=== PATIENT | male | born 1940 | race Caucasian/White ===

== ENCOUNTER 2016-05-02 18:12 | Emergency (ER) | payer OTHER, BC ==
[~2016-05-02] VITALS: Ht 177.8 cm; Wt 82.3 kg
[~2016-05-02 18:12] MED LIST: ACET-1311 PO; ALBU1AER9 INH; ALFU10TA30 PO; ASPCH81X PO; CALC-393 PO; CMD5 PO; FLUT0.15 NAE; HYDR0.1C8 TOP; LISI40TA PO; LORA1TAB13 PO; METO50TA7 PO; MULT-267 PO; OXYB5TAB74 PO; POLY335025 PO; PRAV20TA PO; RANI300T2 PO; SALI0.6517 NAE; SALM50AE2 INH; TRIA0.1C20 TD; WARF5TAB90 PO
[2016-05-02 18:20] VITALS: TEMP 36.8; Ht 177.8 cm; Wt 82.3 kg
--- NOTE | 2016-05-02 18:49 | DIAGNOSTIC IMAGING REPORT ---
CHEST ONE VIEW PORTABLE CLINICAL HISTORY: Altered mental status. Weakness. COMPARISON STUDY: 05/16/2015 FINDINGS: The heart is enlarged. There is underlying pulmonary emphysema. There is mild central pulmonary vascular congestion. There is no focal pulmonary consolidation. There are no significant pleural effusions.[ There are postsurgical changes of a midline sternotomy. IMPRESSION: Cardiomegaly and mild central pulmonary vascular congestion. No evidence of focal pulmonary consolidation Electronically signed by: Brijesh Zamora M.D. 05/02/2016 6:48 PM Dictated Date/Time: 05/02/2016 6:47 PM
[2016-05-02 18:56] LABS: BASO % 0.3 %; BASO ABS # 0.02 K/uL (0-0.2); COMPLETE YES; EOS % 2.5 %; HEMATOCRIT 40.6 % (42-52); IG% 0.2 %; LYMPH % 17.6 %; LYMPH ABS # 1.14 K/uL (1.2-3.4); MEAN CELL VOLUME 89.4 fL (80-100); MEAN CORPUSCULAR HEMOGLOBIN 31.3 pg (25-34); MEAN PLATELET VOLUME 10.4 fL (7.4-10.4); MONO % 16.6 %; NEUT % 62.8 %; PLATELET COUNT 133 K/uL (130-400); RED BLOOD COUNT 4.54 M/uL (4.7-6.1); WHITE BLOOD COUNT 6.46 K/uL (4.8-10.8)
[2016-05-02 19:07] LABS: INR 2.6 (0.9-1.1); PARTIAL THROMBOPLASTIN RATIO 1.4; PROTHROMBIN TIME (PATIENT) 29.4 SECONDS (9.0-12.0)
[2016-05-02 19:13] LABS: ALT/SGPT 45 U/L (12-78); AST/SGOT 30 U/L (15-37); BLOOD UREA NITROGEN 18 mg/dl (7-18); BUN/CREATININE RATIO 14.7 (10-20); CALCIUM 8.3 mg/dl (8.5-10.1); CARBON DIOXIDE 26 mmol/L (21-32); CHLORIDE 102 mmol/L (98-107); GLUCOSE 110 mg/dl (70-99); POTASSIUM 4.3 mmol/L (3.5-5.1); SODIUM 137 mmol/L (136-145)
[2016-05-02 19:22] LABS: ALKALINE PHOSPHATASE 102 U/L (45-117); CKMB/CK RATIO 2.4 (0-3.0)
[2016-05-02] MEDS ORDERED: SRVDIN60 INH (19:35)
[2016-05-02] MEDS ORDERED: POTA10TA79 PO (19:35)
[2016-05-02] MEDS ORDERED: SENN-61 PO (19:35)
[2016-05-02] MEDS ORDERED: FRS/40 PO (19:35)
[2016-05-02] MEDS ORDERED: DOCU100C31 PO (19:35)
[2016-05-02] MEDS ORDERED: ATV5X PO (19:35)
[2016-05-02] MEDS ORDERED: NRN800 PO (19:35)
[2016-05-02] MEDS ORDERED: CRD200 PO (19:35)
[2016-05-02] MEDS ORDERED: VNTHFA/IN INH (19:35)
[2016-05-02] MEDS ORDERED: ATOR-22 PO (19:35)
[2016-05-02] MEDS ORDERED: MRLP527 PO (19:35)
[2016-05-02] MEDS ORDERED: TPRSR/100 PO (19:35)
[2016-05-02] MEDS ORDERED: URX/10 PO (19:35)
[2016-05-02] MEDS ORDERED: CALC-574 PO (19:35)
[2016-05-02] MEDS ORDERED: MULT-513 PO (19:38)
[2016-05-02 20:02] LABS: URINE APPEARANCE CLEAR (CLEAR); URINE BILIRUBIN NEG (NEG); URINE COLOR YELLOW; URINE EPITHELIAL CELL AUTO 0-5 /lpf (0-5); URINE NITRITE NEG (NEG); URINE PH 5.5 (4.5-7.5); URINE SPECIFIC GRAVITY 1.019 (1.000-1.030); UROBILINOGEN NEG (NEG); ZZUR CULT IF INDIC CLEAN CATCH NO
[2016-05-02] MEDS ORDERED: MAGN400T6 PO (20:04)
[2016-05-02 20:05] LABS: MANUAL MICROSCOPIC REQUIRED? NO; REVIEW REQ? NO
[2016-05-02] MEDS ORDERED: [UNRECOGNIZED DRUG - OTHER] TOP (20:13)
[2016-05-02] MEDS ORDERED: OXYC1TAB3 PO (20:13)
[2016-05-02] MEDS ORDERED: SALI1SPR15 NAE (20:13)
[2016-05-02] MEDS ORDERED: LIDO TOP (20:13)
[2016-05-02] MEDS ORDERED: MAG TOP (20:13)
--- NOTE | 2016-05-02 20:35 | EMERGENCY ROOM VISIT NOTE ---
History Report prepared by Magdiel: Luann Gu Under the Supervision of: Dr. Bony Boo D.O. First contact with patient: 18:21 Chief Complaint: CHEST PAIN Stated Complaint: HTN, L SIDE CHEST PAIN UPON PALPATION History of Present Illness The patient is a 75 year old male who presents to the Emergency Room with complaints of constant left sided chest pain beginning a few hours prior to arrival. He states that the pain radiates around to his back. He notes that movement does worsen the pain. The patient states that he was at [employer] when he began to feel flush. He took his blood pressure and it was around 200/ 70. The patient then relaxed for a few minutes and took his blood pressure again and got very similar results. He states that he normally does not have high blood pressure and when he was seen at [facility] last Sunday he once again experienced high blood pressure. The patient notes that the past few months he has been experiencing kidney troubles and urinary frequency. The patient in November had heart surgery. He notes that he is currently on blood pressure medication and Coumadin. He did take a Lisinopril and Advil before arriving to the ED. He denies recent trauma or symptoms like this before. 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 Review of Systems See HPI for pertinent positives & negatives. A total of 10 systems reviewed and were otherwise negative. Past Medical & Surgical Medical Problems: (1) Atrial fibrillation (2) Basal cell carcinoma of neck (3) Basal cell carcinoma of nose (4) Benign hypertension (5) Chronic obstructive lung disease (6) Dizziness (7) Elevated troponin (8) Food Impaction (9) Gastroesophageal reflux disease (10) Hypertension (11) SOB (shortness of breath) Family History FHx: hypertension Social History Smoking Status: Former Smoker Alcohol Use: occasionally Drug Use: none Marital Status: single, Housing Status: lives alone Occupation Status: retired Current/Historical Medications Scheduled Alfuzosin HCl (Alfuzosin HCl ER), 10 MG PO HS Amiodarone HCl (Amiodarone HCl), 200 MG PO DAILY Ascorbic Acid (Vitamin C), 500 MG PO QAM Aspirin (Aspirin Chewable), 81 MG PO QAM Atorvastatin (Lipitor), 20 MG PO HS Calcium Carbonate-Cholecalcife (Calcium 600+D3 600-400 mg-Unit), 1 TAB PO BID Docusate Sodium (Docusate Sodium), 1 CAP PO DAILY Hydrocortisone Butyrate 0.1% (Locoid Cream 0.1%), 1 % TOP DIRECTED Magnesium Oxide (Mag-Ox), 400 MG PO BID Metoprolol Succinate (Metoprolol Succinate ER), 100 MG PO DAILY Multivitamins/Minerals (Mvi With Minerals), 1 TAB PO DAILY Oxybutynin Chloride (Ditropan), 5 MG PO HS Oxycodone Immediate Rel Tab (Roxicodone Ir), 1 TAB PO PRN UD Polyethylene Glycol 3350 (Miralax), 1 DOSE PO DAILY Potassium Chloride Microencaps (Potassium Chloride Cr), 10 MEQ PO DAILY Ranitidine (Zantac), 150 MG PO TIDM Senna (Senokot), 1 TAB PO DAILY Warfarin Sod (Coumadin), 7.5 MG PO QWED Warfarin Sodium (Coumadin), 5 MG PO 6XWK Scheduled PRN Acetaminophen (Tylenol), 650 MG PO Q6 PRN for Pain Albuterol Hfa (Ventolin Hfa), 2 PUFFS INH Q6 PRN for SOB/Wheezing Fluticasone Propionate (Nasal) (Flonase Allergy Relief), 1-2 SPRAY PILI BID PRN for CONGESTION Furosemide (Lasix), 40 MG PO DAILY PRN for SWELLING Lorazepam (Lorazepam), 0.5 MG PO TID PRN for Anxiety Saline (Saline Nasal Peridot Infant), 1-2 SPRY PILI Q2H PRN for Nasal Congestion [Mag10/Gab6/Lido5%], 1 APPLN TOP QID PRN for AFFECTED AREA Allergies Coded Allergies: Amlodipine (Verified Allergy, Unknown, EDEMA, 06/22/15) Guaifenesin (Verified Allergy, Unknown, GETS REALLY SICK FROM MUCINEX, ) Physical Exam Vital Signs Date Time Temp Pulse Resp B/P Pulse Ox O2 Delivery O2 Flow Rate FiO2 05/02/16 20:07 95 Room Air 05/02/16 19:46 49 20 173/62 96 Room Air 05/02/16 18:32 49 05/02/16 18:20 36.8 49 16 181/58 95 Room Air Physical Exam CONSTITUTIONAL/VITAL SIGNS: Reviewed / noted above. GENERAL: Non-toxic in appearance. INTEGUMENTARY: Warm, dry, and [place]. HEAD: Normocephalic. EYES: without scleral icterus or trauma. ENT/OROPHARYNX: clear and moist. LYMPHADENOPATHY/NECK: Is supple without lymphadenopathy or meningismus. RESPIRATORY: Lungs clear and equal. CARDIOVASCULAR: Regular rate and rhythm. CHEST: there is a contusion to the left lateral pectoral region with tenderness. GI/ABDOMEN: Soft and nontender. No organomegaly or pulsatile mass. No rebound or guarding. Normal bowel sounds. EXTREMITIES: Warm and well perfused. BACK: No CVA tenderness. NEUROLOGICAL: Intact without focal deficits. PSYCHIATRIC: normal affect. MUSCULOSKELETAL: Normally developed with good muscle tone. Medical Decision & Procedures ER Provider Diagnostic Interpretation: X ray results and stated below per my interpretation and radiology interpretation. CHEST ONE VIEW PORTABLE CLINICAL HISTORY: Altered mental status. Weakness. COMPARISON STUDY: 05/16/2015 FINDINGS: The heart is enlarged. There is underlying pulmonary emphysema. There is mild central pulmonary vascular congestion. There is no focal pulmonary consolidation. There are no significant pleural effusions.[ There are postsurgical changes of a midline sternotomy. IMPRESSION: Cardiomegaly and mild central pulmonary vascular congestion. No evidence of focal pulmonary consolidation Electronically signed by: Brijesh Zamora M.D. 05/02/2016 6:48 PM Dictated Date/Time: 05/02/2016 6:47 PM Laboratory Results 05/02/16 18:45 Red Blood Count 4.54, Mean Corpuscular Volume 89.4, Mean Corpuscular Hemoglobin 31.3, Mean Corpuscular Hemoglobin Concent 35.0, Mean Platelet Volume 10.4, Neutrophils (%) (Auto) 62.8, Lymphocytes (%) (Auto) 17.6, Monocytes (%) (Auto) 16.6, Eosinophils (%) (Auto) 2.5, Basophils (%) (Auto) 0.3, Neutrophils # (Auto ) 4.06, Lymphocytes # (Auto) 1.14, Monocytes # (Auto) 1.07, Eosinophils # (Auto ) 0.16, Basophils # (Auto) 0.02 05/02/16 18:45 Test 05/02/16 18:45 05/02/16 19:20 White Blood Count 6.46 K/uL (4.8-10.8) Red Blood Count 4.54 M/uL (4.7-6.1) Hemoglobin 14.2 g/dL (14.0-18.0) Hematocrit 40.6 % (42-52) Mean Corpuscular Volume 89.4 fL (80-100) Mean Corpuscular Hemoglobin 31.3 pg (25-34) Mean Corpuscular Hemoglobin Concent 35.0 g/dl (32-36) Platelet Count 133 K/uL (130-400) Mean Platelet Volume 10.4 fL (7.4-10.4) Neutrophils (%) (Auto) 62.8 % Lymphocytes (%) (Auto) 17.6 % Monocytes (%) (Auto) 16.6 % Eosinophils (%) (Auto) 2.5 % Basophils (%) (Auto) 0.3 % Neutrophils # (Auto) 4.06 K/uL (1.4-6.5) Lymphocytes # (Auto) 1.14 K/uL (1.2-3.4) Monocytes # (Auto) 1.07 K/uL (0.11-0.59) Eosinophils # (Auto) 0.16 K/uL (0-0.5) Basophils # (Auto) 0.02 K/uL (0-0.2) RDW Standard Deviation 46.1 fL (36.4-46.3) RDW Coefficient of Variation 14.0 % (11.5-14.5) Immature Granulocyte % (Auto) 0.2 % Immature Granulocyte # (Auto) 0.01 K/uL (0.00-0.02) Prothrombin Time 29.4 SECONDS (9.0-12.0) Prothromb Time International Ratio 2.6 (0.9-1.1) Activated Partial Thromboplast Time 36.8 SECONDS (21.0-31.0) Partial Thromboplastin Ratio 1.4 Anion Gap 9.0 mmol/L (3-11) Est Creatinine Clear Calc Drug Dose 54.9 ml/min Estimated GFR () 68.1 Estimated GFR (Non- 58.8 BUN/Creatinine Ratio 14.7 (10-20) Calcium Level 8.3 mg/dl (8.5-10.1) Magnesium Level 2.0 mg/dl (1.8-2.4) Total Bilirubin 0.8 mg/dl (0.2-1) Direct Bilirubin 0.3 mg/dl (0-0.2) Aspartate Amino Transf (AST/SGOT) 30 U/L (15-37) Alanine Aminotransferase (ALT/SGPT) 45 U/L (12-78) Alkaline Phosphatase 102 U/L (45-117) Total Creatine Kinase 106 U/L (39-308) Creatine Kinase MB 2.5 ng/ml (0.5-3.6) Creatine Kinase MB Ratio 2.4 (0-3.0) Troponin I < 0.015 ng/ml (0-0.045) Total Protein 7.0 gm/dl (6.4-8.2) Albumin 3.6 gm/dl (3.4-5.0) Lipase 191 U/L (73-393) Thyroid Stimulating Hormone (TSH) 1.990 uIu/ml (0.300-4.500) Urine Color YELLOW Urine Appearance CLEAR (CLEAR) Urine pH 5.5 (4.5-7.5) Urine Specific [place] 1.019 (1.000-1.030) Urine Protein NEG (NEG) Urine Glucose (UA) NEG (NEG) Urine Ketones NEG (NEG) Urine Occult Blood NEG (NEG) Urine Nitrite NEG (NEG) Urine Bilirubin NEG (NEG) Urine Urobilinogen NEG (NEG) Urine Leukocyte Esterase NEG (NEG) Urine WBC (Auto) 0 /hpf (0-5) Urine RBC (Auto) 0-4 /hpf (0-4) Urine Hyaline Casts (Auto) 0 /lpf (0-5) Urine Epithelial Cells (Auto) 0-5 /lpf (0-5) Urine Bacteria (Auto) NEG (NEG) Laboratory results as stated above per my review. ECG Indication: chest pain Rate (beats per minute): 48 Rhythm: sinus bradycardia Findings: 1st degree AV block, no acute ischemic change, no ectopy ED Course 1823: Previous medical records were reviewed. The patient was evaluated in room B2. A complete history and physical examination was performed. 2019: On reevaluation, the patient is hemodynamically stable. I discussed the results and findings with the patient. He verbalized agreement of the treatment plan. He was discharged home. Medical Decision Differential includes acute coronary syndrome, myocardial infarction, CVA, TIA, anemia, infection, pneumonia, UTI, pyelonephritis, poor nutrition, dehydration, electrolyte disturbance,hypoglycemia. This is a 75-year-old male who presents to the ED with a chief complaint of hypertension. The patient states that he was at a local grocery store and checked his blood pressure and it was elevated. He states that the reading was 202/70. He came to the ED for evaluation of this. He does report some left- sided chest pain. He did note a bruise on his left lateral chest wall. He is unsure how it got there. The patient's initial blood pressure here was 181/58. His exam was unremarkable. He denied any other symptoms such as exertional dyspnea or chest pain worsened with exertion. He denies any fevers or cough. EKG shows sinus bradycardia. The patient does report having taken an extra beta carrington pill. CBC and complete metabolic panel were normal. A troponin is negative. Chest x-ray did not show acute disease. Lipase is negative. TSH was normal. INR is 2.6. He is on Coumadin. Urine did not show infection. The patient blood pressure improved to 164/68 while he was here. He was told results the test. He is felt to be stable for discharge and outpatient follow- up. Impression Primary Impression: HTN (hypertension) Additional Impression: Contusion of left chest wall Scribe Attestation The scribe's documentation has been prepared under my direction and personally reviewed by me in its entirety. I confirm that the note above accurately reflects all work, treatment, procedures, and medical decision making performed by me. Departure Information Dispostion Home / Self-Care Referrals Olaf Roldan III, M.D. (PCP) Forms HOME CARE DOCUMENTATION FORM, IMPORTANT VISIT INFORMATION Patient Instructions My [facility] Additional Instructions Follow-up with your doctor for further care and evaluation in 1-5 days. Return to the emergency department for worsening or new symptoms or any concerns. You have been examined and treated today on an emergency basis only. This is not a substitute for, or an effort to provide, complete comprehensive medical care. It is impossible to recognize and treat all injuries or illnesses in a single emergency department visit. It is therefore important that you follow up closely with your doctor. Call as soon as possible for an appointment. Problem Qualifiers
[2016-05-02] MEDS ORDERED: ASCO-63 PO (20:54)
[2016-05-02 20:57] VITALS: BP 162/67; PULSE 49; O2SAT 93
== END 2016-05-02 20:57 | disposition home or self-care (01) ==
LOC: EDBD 18:12 → C.EDB 18:13
DX: I10 Essential (primary) hypertension (principal); S20.20XA Contusion of thorax, unspecified, initial encounter; X58.XXXA Exposure to other specified factors, initial encounter; I48.91 Unspecified atrial fibrillation; J44.9 Chronic obstructive pulmonary disease, unspecified; K21.9 Gastro-esophageal reflux disease without esophagitis; Z85.828 Personal history of other malignant neoplasm of skin; Z87.891 Personal history of nicotine dependence; Z79.01 Long term (current) use of anticoagulants; Z79.82 Long term (current) use of aspirin; Z79.899 Other long term (current) drug therapy

== ENCOUNTER 2016-05-07 14:01 | Emergency (ER) | payer OTHER, BC ==
[~2016-05-07] VITALS: Ht 185.4 cm; Wt 83.7 kg
[~2016-05-07 14:01] MED LIST changes: -ALOEMIS TOP; -ASCO500C4 PO; -CEPH500C PO; -CLOTCRE5 TOP; -LISI-461 PO; -LSN5 PO; -SALI0.6515; -TRMCR180 TOP; -[UNRECOGNIZED DRUG - CODE] TOP
[2016-05-07 14:13] VITALS: TEMP 37.1; Ht 185.4 cm; Wt 83.7 kg
[2016-05-07] MEDS ORDERED: OPTIRAY 320 IV PRN (14:45)
[2016-05-07 14:54] LABS: HEMATOCRIT 33.1 % (42-52); MEAN CELL VOLUME 88.3 fL (80-100); MEAN CORPUSCULAR HEMOGLOBIN 30.9 pg (25-34); MEAN PLATELET VOLUME 10.3 fL (7.4-10.4); PLATELET COUNT 117 K/uL (130-400); RED BLOOD COUNT 3.75 M/uL (4.7-6.1)
[2016-05-07 15:02] LABS: INR 2.8 (0.9-1.1); PROTHROMBIN TIME (PATIENT) 31.7 SECONDS (9.0-12.0)
[2016-05-07 15:12] LABS: BUN/CREATININE RATIO 18.7 (10-20); CALCIUM 8.2 mg/dl (8.5-10.1); CREATININE 1.1 mg/dl (0.60-1.40); POTASSIUM 4.2 mmol/L (3.5-5.1)
--- NOTE | 2016-05-07 15:14 | DIAGNOSTIC IMAGING REPORT ---
CHEST ONE VIEW PORTABLE CLINICAL HISTORY: large left sided hematoma pain COMPARISON STUDY: 05/02/2016 FINDINGS: Moderate stable cardiomegaly. Prior median sternotomy. Lungs are clear. Diaphragms smooth. IMPRESSION: Moderate stable cardiomegaly. Otherwise negative study Electronically signed by: Moreno Cotto M.D. 05/07/2016 3:13 PM Dictated Date/Time: 05/07/2016 3:12 PM
[2016-05-07 15:16] LABS: COMPLETE YES; EOSINOPHIL % 0.9 %; LYMPHOCYTE % 20.5 %; NEUTROPHILS % 73.2 %
[2016-05-07] MEDS ORDERED: [UNRECOGNIZED DRUG - CODE] TOP (15:33)
--- NOTE | 2016-05-07 15:57 | DIAGNOSTIC IMAGING REPORT ---
ABDOMEN AND PELVIS CT WITH IV CONTRAST CT DOSE: 403.49 mGy.cm HISTORY: Flank pain. Hematoma. large left sided hematoma w/ pain TECHNIQUE: Multiaxial CT images of the abdomen and pelvis were performed following the use of intravenous contrast. COMPARISON STUDY: 06/22/2015 FINDINGS: Mild bibasilar atelectatic change. Liver spleen and pancreas appear unremarkable. Kidneys enhance uniformly. There is atherosclerotic change and ectasia of the low thoracic as well as abdominal aorta. Bowel pattern is considered nonobstructive. There are findings of rather significant contusion along the left lateral abdominal wall including subcutaneous fat. At the lower aspect of the left chest is a 10 x 2.5 cm hematoma. The soft tissue contusion anterior to this region has a maximum geographic extent of approximate 12 x 4 x 16 cm. No acute intra-abdominal or intrapelvic abnormality. No free fluid within the paracolic gutters or soft tissue pelvic region. IMPRESSION: 1. Left flank contusion and hematoma extending from the low chest to the level of the a left iliac wing. 2. The bulk of this in terms of geographic extent is the contusion with a maximum dimension of 16 cm in terms of cephalocaudal dimension 3. The more defined hematoma occupies the lower lateral chest wall with a maximum dimension of 10 x 2.5 cm 4. No acute intra-abdominal or intrapelvic abnormality Electronically signed by: Moreno Cotto M.D. 05/07/2016 3:55 PM Dictated Date/Time: 05/07/2016 3:51 PM
[2016-05-07] MEDS ORDERED: PHYTONADIONE 5 MG TAB PO STA (16:13)
[2016-05-07 17:25] VITALS: BP 147/75; PULSE 64; O2SAT 99
--- NOTE | 2016-05-07 20:20 | EMERGENCY ROOM VISIT NOTE ---
History Report prepared by Magdiel: Frieda Driver Under the Supervision of: Viky DowneyO. First contact with patient: 14:16 Chief Complaint: ABNORMAL LABS Stated Complaint: LOW BLOOD COUNT, REFERRED BY History of Present Illness The patient is a 75 year old male who presents to the Emergency Room with complaints of constant LLQ abdominal pain beginning 6 days ago. The patient states that he was seen here 6 days ago for LLQ bruising after he might have strained himself putting his walker in the backseat of his car. He notes that he had labs that day that were okay and he notes that he was hypertensive. Since that visit, he reports that the bruising went down slightly but then came back and is now slightly worsened. The patient states that he is on Coumadin for A-fib and took it last night before he went to bed. He complains of weakness from not eating lunch, right knee pain which is chronic, and abdominal bruising. Pt denies lightheadedness, dizziness, chest pain, shortness of breath , nausea, and vomiting. The patient notes that he just got labs and his hemoglobin was 12. Source of History: patient Onset: 6 days ago Position: abdomen (LLQ) Quality: other (bruising) Timing: constant Associated Symptoms: No SOB, No chest pain, No nausea, No vomiting Note: He complains of weakness from not eating lunch, right knee pain, and abdominal bruising. Pt denies lightheadedness and dizziness. Review of Systems Pt denies headache, change in vision, fevers, chest pain, shortness of breath, nausea, vomiting, diarrhea, pain with urination, and melena. Past Medical & Surgical Medical Problems: (1) Atrial fibrillation (2) Basal cell carcinoma of neck (3) Basal cell carcinoma of nose (4) Benign hypertension (5) Chronic obstructive lung disease (6) Dizziness (7) Elevated troponin (8) Food Impaction (9) Gastroesophageal reflux disease (10) Hypertension (11) SOB (shortness of breath) Family History FHx: hypertension Social History Smoking Status: Never Smoker Alcohol Use: occasionally Drug Use: none Marital Status: single, Housing Status: lives alone Occupation Status: retired Current/Historical Medications Scheduled Alfuzosin HCl (Alfuzosin HCl ER), 10 MG PO HS Amiodarone HCl (Amiodarone HCl), 200 MG PO DAILY Ascorbic Acid (Vitamin C), 500 MG PO QAM Aspirin (Aspirin Chewable), 81 MG PO QAM Atorvastatin (Lipitor), 20 MG PO HS Calcium Carbonate-Cholecalcife (Calcium 600+D3 600-400 mg-Unit), 1 TAB PO BID Docusate Sodium (Docusate Sodium), 1 CAP PO DAILY Hydrocortisone Butyrate (Locoid), 1 APPLN TOP PRN UD Magnesium Oxide (Mag-Ox), 400 MG PO BID Metoprolol Succinate (Metoprolol Succinate ER), 100 MG PO DAILY Multivitamins/Minerals (Mvi With Minerals), 1 TAB PO DAILY Oxybutynin Chloride (Ditropan), 5 MG PO HS Oxycodone Immediate Rel Tab (Roxicodone Ir), 1 TAB PO PRN UD Polyethylene Glycol 3350 (Miralax), 1 DOSE PO DAILY Potassium Chloride Microencaps (Potassium Chloride Cr), 10 MEQ PO DAILY Ranitidine (Zantac), 150 MG PO TIDM Senna (Senokot), 1 TAB PO QPM Warfarin Sod (Coumadin), 7.5 MG PO QWED Warfarin Sodium (Coumadin), 5 MG PO 6XWK Scheduled PRN Acetaminophen (Tylenol), 650 MG PO Q6 PRN for Pain Albuterol Hfa (Ventolin Hfa), 2 PUFFS INH Q6 PRN for SOB/Wheezing Fluticasone Propionate (Nasal) (Flonase Allergy Relief), 1-2 SPRAY PILI BID PRN for CONGESTION Furosemide (Lasix), 40 MG PO DAILY PRN for SWELLING Lorazepam (Lorazepam), 0.5 MG PO TID PRN for Anxiety Saline (Saline Nasal Colora Infant), 1-2 SPRY PILI Q2H PRN for Nasal Congestion [Mag10/Gab6/Lido5%], 1 APPLN TOP QID PRN for AFFECTED AREA Allergies Coded Allergies: Amlodipine (Verified Allergy, Unknown, EDEMA, 06/22/15) Guaifenesin (Verified Allergy, Unknown, GETS REALLY SICK FROM MUCINEX, ) Physical Exam Vital Signs Date Time Temp Pulse Resp B/P Pulse Ox O2 Delivery O2 Flow Rate FiO2 05/07/16 17:25 64 16 147/75 99 05/07/16 15:51 54 16 159/46 96 3/5/17 14:13 37.1 50 18 162/52 96 Room Air Physical Exam GENERAL: sitting up in bed, disheveled, no acute distress, non-toxic EYE EXAM: normal conjunctiva OROPHARYNX: no exudate, no erythema, lips, buccal mucosa, and tongue normal and mucous membranes are moist NECK: supple, no nuchal rigidity, no adenopathy, non-tender LUNGS: Clear to auscultation. Normal chest wall mechanics HEART: no murmurs, S1 normal and S2 normal ABDOMEN: Diffuse bruising and fullness of abdomen tracking medially to umbilicus and superiorly to rib cage on the left BACK: Back is symmetrical on inspection and there is no deformity, no midline tenderness, no CVA tenderness. SKIN: no rashes and no bruising UPPER EXTREMITIES: upper extremities are grossly normal. LOWER EXTREMITIES: Bilateral pitting edema. NEURO EXAM: Normal sensorium, cranial nerves II-XII grossly intact, normal speech, no gross weakness of arms, no gross weakness of legs. Medical Decision & Procedures ER Provider Diagnostic Interpretation: Xray results per the radiologist and my interpretation. Other results have been interpreted by the radiologist and reviewed by me. CHEST ONE VIEW PORTABLE FINDINGS: Moderate stable cardiomegaly. Prior median sternotomy. Lungs are clear. Diaphragms smooth. IMPRESSION: Moderate stable cardiomegaly. Otherwise negative study Electronically signed by: Moreno Cotto M.D. 05/07/2016 3:13 PM Dictated Date/Time: 05/07/2016 3:12 PM A[address]OMEN AND PELVIS CT WITH IV CONTRAST COMPARISON STUDY: 06/22/2015 FINDINGS: Mild bibasilar atelectatic change. Liver spleen and pancreas appear unremarkable. Kidneys enhance uniformly. There is atherosclerotic change and ectasia of the low thoracic as well as abdominal aorta. Bowel pattern is considered nonobstructive. There are findings of rather significant contusion along the left lateral abdominal wall including subcutaneous fat. At the lower aspect of the left chest is a 10 x 2.5 cm hematoma. The soft tissue contusion anterior to this region has a maximum geographic extent of approximate 12 x 4 x 16 cm. No acute intra-abdominal or intrapelvic abnormality. No free fluid within the paracolic gutters or soft tissue pelvic region. IMPRESSION: 1. Left flank contusion and hematoma extending from the low chest to the level of the a left iliac wing. 2. The bulk of this in terms of geographic extent is the contusion with a maximum dimension of 16 cm in terms of cephalocaudal dimension 3. The more defined hematoma occupies the lower lateral chest wall with a maximum dimension of 10 x 2.5 cm 4. No acute intra-abdominal or intrapelvic abnormality Electronically signed by: Moreno Cotto M.D. 05/07/2016 3:55 PM Dictated Date/Time: 05/07/2016 3:51 PM Laboratory Results 05/07/16 14:41 Red Blood Count 3.75, Mean Corpuscular Volume 88.3, Mean Corpuscular Hemoglobin 30.9, Mean Corpuscular Hemoglobin Concent 35.0, Mean Platelet Volume 10.3 05/07/16 14:41 Test 05/07/16 14:41 White Blood Count 4.90 K/uL (4.8-10.8) Red Blood Count 3.75 M/uL (4.7-6.1) Hemoglobin 11.6 g/dL (14.0-18.0) Hematocrit 33.1 % (42-52) Mean Corpuscular Volume 88.3 fL (80-100) Mean Corpuscular Hemoglobin 30.9 pg (25-34) Mean Corpuscular Hemoglobin Concent 35.0 g/dl (32-36) Platelet Count 117 K/uL (130-400) Mean Platelet Volume 10.3 fL (7.4-10.4) RDW Standard Deviation 45.0 fL (36.4-46.3) RDW Coefficient of Variation 13.8 % (11.5-14.5) Neutrophils % (Manual) 73.2 % Lymphocytes % (Manual) 20.5 % Monocytes % (Manual) 5.4 % Eosinophils % (Manual) 0.9 % Neutrophils # (Manual) 3.59 K/uL (1.4-6.5) Total Absolute Neutrophils 3.59 K/uL (1.4-6.5) Lymphocytes # (Manual) 1.00 K/uL (1.2-3.4) Total Absolute Lymphocytes 1.00 K/uL (1.2-3.4) Monocytes # (Manual) 0.26 K/uL (0.11-0.59) Eosinophils # (Manual) 0.04 K/uL (0-0.5) Red Blood Cell Morphology Unremarkable Prothrombin Time 31.7 SECONDS (9.0-12.0) Prothromb Time International Ratio 2.8 (0.9-1.1) Anion Gap 10.0 mmol/L (3-11) Est Creatinine Clear Calc Drug Dose 65.6 ml/min Estimated GFR () 75.7 Estimated GFR (Non- 65.3 BUN/Creatinine Ratio 18.7 (10-20) Calcium Level 8.2 mg/dl (8.5-10.1) Total Bilirubin 1.0 mg/dl (0.2-1) Direct Bilirubin 0.3 mg/dl (0-0.2) Aspartate Amino Transf (AST/SGOT) 30 U/L (15-37) Alanine Aminotransferase (ALT/SGPT) 38 U/L (12-78) Alkaline Phosphatase 97 U/L (45-117) Total Protein 6.7 gm/dl (6.4-8.2) Albumin 3.5 gm/dl (3.4-5.0) Laboratory results per my review. Medications Administered Medications (Trade) Dose Ordered Sig/Martine Route Start Time Stop Time Status Last Admin Dose Admin Phytonadione (Mephyton Tab) 5 mg NOW STAT PO 05/07/16 16:13 05/07/16 16:14 DC 05/07/16 16:31 5 MG ED Course ED COURSE: Vital signs were reviewed and showed bradycardia and hypertensive The patients medical record was reviewed The above diagnostic studies were performed and reviewed. ED treatments and interventions as stated above. 1416: The patient was evaluated in room C7. A complete history and physical examination was performed. 1429: The patient's hemoglobin was 14 on 05/02 and is now 12. 1609: I reevaluated the patient and updated him. 1613: Mephyton Tab 5mg PO. 1625: Upon reevaluation, the patient is hemodynamically stable.I discussed my findings with the patient and he understands and agrees with the treatment plan. Based on the patients age, coexisting illnesses, exam and lab findings the decision to treat as an outpatient was made. The patient remained stable while under my care. The patient appeared well at the time of discharge. Medical Decision Differential diagnoses include major intracranial, cervical, spinal, thoracic, abdominal, pelvic and neurologic injury. Fracture, contusion, sprain, strain, laceration, abrasions included as well. Patient is a 75-year-old male who presents the ER following being referred in by primary care doctor. He takes Coumadin for A. fib and has been having bruising along the left abdominal wall. Hemoglobin from his initial evaluation several days ago drop from 14 to 12. He has no other complaints at this time. Repeat blood work in the ER shows a hemoglobin 11.6 which is within lab or from 12. BMP along with LFTs, bilirubin was unremarkable. His abdominal exam was benign. INR was therapeutic at 2.8. Patient did take his Coumadin last night. CT shows abdominal wall bruising without active extravasation and no bleeding in the abdomen. INR was reversed following discussion with the patient. He was given 5 mg of vitamin K orally. He is discharged follow-up with his primary care doctor tomorrow. Uncertain of the Nikos-Close of the bruising but I do favor he likely brushed it or hit his abdomen opening his walker in the car on Sunday. Discussed with Pt concerning signs and symptoms to watch out for. Pt was instructed to follow up with their PCP and discussed with the patient their option to return to the ED at anytime for persistent or worsening symptoms. The appropriate anticipatory guidance and out-patient management, including indications for return to the emergency department, were explained at length to the patient and understood. Impression Primary Impression: Hematoma Additional Impression: Supratherapeutic INR Scribe Attestation The scribe's documentation has been prepared under my direction and personally reviewed by me in its entirety. I confirm that the note above accurately reflects all work, treatment, procedures, and medical decision making performed by me. Departure Information Dispostion Home / Self-Care Forms HOME CARE DOCUMENTATION FORM, IMPORTANT VISIT INFORMATION, WORK / SCHOOL INSTRUCTIONS Patient Instructions ED Hematoma, My [facility] Additional Instructions Please follow up with your primary care doctor with in the next 24 hours. Any worsening of your symptoms, please return to the ED immediately. This includes feeling lightheaded, dizzy, passing out, increase in the size of the hematoma/ bruising or any other concerning signs or symptoms from your standpoint. Please do not take any Coumadin until you see or talk with your primary care doctor tomorrow. Problem Qualifiers
== END 2016-05-07 17:27 | disposition home or self-care (01) ==
LOC: C.EDB 14:03 → C.EDC 17:27
DX: S30.1XXA Contusion of abdominal wall, initial encounter (principal); X58.XXXA Exposure to other specified factors, initial encounter; R79.1 Abnormal coagulation profile; Z85.828 Personal history of other malignant neoplasm of skin; I10 Essential (primary) hypertension; J44.9 Chronic obstructive pulmonary disease, unspecified; K21.9 Gastro-esophageal reflux disease without esophagitis; Z82.49 Family history of ischemic heart disease and other diseases of the circulatory system; Z79.01 Long term (current) use of anticoagulants; Z79.82 Long term (current) use of aspirin; Z79.899 Other long term (current) drug therapy; S20.212D Contusion of left front wall of thorax, subsequent encounter; X58.XXXD Exposure to other specified factors, subsequent encounter; S36.92XA Contusion of unspecified intra-abdominal organ, initial encounter; I48.0 Paroxysmal atrial fibrillation

== ENCOUNTER → 2016-05-07 | Outpatient (CLI) | payer OTHER, BC ==
[~2016-05-07] MED LIST changes: -ALBU1AER9 INH; -ALFU10TA30 PO; +ALOEMIS TOP; +ASCO-63 PO; +ASCO500C4 PO; +ATOR-22 PO; +ATV5X PO; -CALC-393 PO; +CALC-574 PO; +CEPH500C PO; +CLOTCRE5 TOP; +CRD200 PO; +DOCU100C31 PO; +FRS/40 PO; +LIDO TOP; +LISI-461 PO; -LISI40TA PO; -LORA1TAB13 PO; +LSN5 PO; +MAG TOP; +MAGN400T6 PO; -METO50TA7 PO; -MULT-267 PO; +MULT-513 PO; +OXYC1TAB3 PO; +POTA10TA79 PO; -PRAV20TA PO; +SALI0.6515; -SALI0.6517 NAE; +SALI1SPR15 NAE; -SALM50AE2 INH; +SENN-61 PO; +TPRSR/100 PO; -TRIA0.1C20 TD; +TRMCR180 TOP; +URX/10 PO; +VNTHFA/IN INH; +[UNRECOGNIZED DRUG - CODE] TOP; +[UNRECOGNIZED DRUG - OTHER] TOP
[2016-05-07 13:19] LABS: BASO % 0.2 %; BASO ABS # 0.01 K/uL (0-0.2); COMPLETE YES; EOS % 2.5 %; HEMATOCRIT 34.8 % (42-52); IG% 0.2 %; LYMPH % 19.9 %; MEAN CELL VOLUME 88.1 fL (80-100); MEAN CORPUSCULAR HEMOGLOBIN 30.9 pg (25-34); MEAN CORPUSCULAR HGB CONC 35.1 g/dl (32-36); MEAN PLATELET VOLUME 9.8 fL (7.4-10.4); MONO % 15.4 %; NEUT % 61.8 %; PLATELET COUNT 129 K/uL (130-400); RED BLOOD COUNT 3.95 M/uL (4.7-6.1); WHITE BLOOD COUNT 5.53 K/uL (4.8-10.8)
[2016-05-07 13:26] LABS: INR 3.1 (0.9-1.1); PROTHROMBIN TIME (PATIENT) 34.8 SECONDS (9.0-12.0)
== END | disposition home or self-care (01) ==
LOC: C.LAB 12:50
PROVIDERS: ATTEND Internal Medicine
DX: S20.212D Contusion of left front wall of thorax, subsequent encounter (principal); X58.XXXD Exposure to other specified factors, subsequent encounter; S36.92XA Contusion of unspecified intra-abdominal organ, initial encounter; X58.XXXA Exposure to other specified factors, initial encounter; I48.0 Paroxysmal atrial fibrillation; Z79.01 Long term (current) use of anticoagulants

== ENCOUNTER 2016-11-01 03:15 | Emergency (ER) | payer OTHER, BC ==
[~2016-11-01] VITALS: Ht 185.4 cm; Wt 79.0 kg
[~2016-11-01 03:15] MED LIST changes: -HYDR0.1C8 TOP; +[UNRECOGNIZED DRUG - CODE] TOP
[2016-11-01 03:20] VITALS: TEMP 36.7; Ht 185.4 cm; Wt 79.0 kg
[2016-11-01] MEDS ORDERED: LORAZEPAM 0.5 MG TAB SL STA (04:04)
[2016-11-01 04:10] LABS: BASO % 0.4 %; BASO ABS # 0.02 K/uL (0-0.2); COMPLETE YES; EOS % 1.4 %; HEMATOCRIT 37.6 % (42-52); IG% 0.4 %; LYMPH ABS # 0.72 K/uL (1.2-3.4); MEAN CELL VOLUME 87.4 fL (80-100); MEAN CORPUSCULAR HEMOGLOBIN 31.9 pg (25-34); MEAN CORPUSCULAR HGB CONC 36.4 g/dl (32-36); MEAN PLATELET VOLUME 9.2 fL (7.4-10.4); MONO % 11.5 %; NEUT % 72.3 %; PLATELET COUNT 124 K/uL (130-400); WHITE BLOOD COUNT 5.15 K/uL (4.8-10.8)
[2016-11-01] MEDS ORDERED: LSN5 PO (04:15)
[2016-11-01] MEDS ORDERED: ACET-1311 PO (04:16)
[2016-11-01] MEDS ORDERED: ALOEMIS TOP (04:16)
[2016-11-01 04:21] LABS: INR 2.7 (0.9-1.1); PARTIAL THROMBOPLASTIN RATIO 1.5; PROTHROMBIN TIME (PATIENT) 29.6 SECONDS (9.0-12.0)
[2016-11-01] MEDS ORDERED: ASCO500C4 PO (04:26)
[2016-11-01] MEDS ORDERED: SALI0.6515 (04:29)
[2016-11-01] MEDS ORDERED: CLOTCRE5 TOP (04:29)
[2016-11-01] MEDS ORDERED: TRMCR180 TOP (04:30)
--- NOTE | 2016-11-01 04:36 | EMERGENCY ROOM VISIT NOTE ---
History First contact with patient: 03:23 Chief Complaint: BLEEDING Stated Complaint: BLEEDING GUMS Nursing Triage Summary: refer to triage note History of Present Illness The patient is a 76 year old male who presents to the Emergency Room with complaints of bleeding gums. The patient states that last week, he began having bleeding in his gums and spitting up blood at times. The patient states that he has rinsed with cold water with some relief. He has had bleeding intermittently since then. He saw a provider at [facility] last week and had a chest x-ray and labs done, but has not been given the results. He states that he takes Coumadin for heart problems. His INR was 2.6 one week ago. He does report a history of bleeding from the gums after a dental procedure several years ago. He denies any pain. He denies any other bleeding. Review of Systems A complete 10 point review of systems was reviewed with the patient with pertinent positives and negatives as per history of present illness. All else were negative. Past Medical/Surgical History Medical Problems: (1) Atrial fibrillation (2) Basal cell carcinoma of neck (3) Basal cell carcinoma of nose (4) Benign hypertension (5) Chronic obstructive lung disease (6) Dizziness (7) Elevated troponin (8) Food Impaction (9) Gastroesophageal reflux disease (10) Hypertension (11) SOB (shortness of breath) Family History FHx: hypertension Social History Smoking Status: Former Smoker Alcohol Use: occasionally Drug Use: none Marital Status: single, Housing Status: lives alone Occupation Status: retired Current/Historical Medications Scheduled Alfuzosin HCl (Alfuzosin HCl ER), 10 MG PO HS Aloe-Sodium Chloride ([place] Saline Nasal Gel), 1 APPLN TOP TID Amiodarone HCl (Amiodarone HCl), 200 MG PO DAILY Ascorbic Acid (Vitamin C), 500 MG PO QAM Ascorbic Acid (Vitamin C Cr), 500 MG PO DAILY Aspirin (Aspirin Chewable), 81 MG PO QAM Atorvastatin (Lipitor), 20 MG PO HS Calcium Carbonate-Cholecalcife (Calcium 600+D3 600-400 mg-Unit), 1 TAB PO DAILY Docusate Sodium (Docusate Sodium), 100 MG PO BID Lisinopril (Lisinopril), 5 MG PO DAILY Magnesium Oxide (Mag-Ox), 400 MG PO BID Metoprolol Succinate (Metoprolol Succinate ER), 100 MG PO QAM Multivitamins/Minerals (Mvi With Minerals), 1 TAB PO DAILY Oxybutynin Chloride (Ditropan), 5 MG PO HS Polyethylene Glycol 3350 (Miralax), 1 DOSE PO DAILY Potassium Chloride Microencaps (Potassium Chloride Cr), 10 MEQ PO DAILY Ranitidine (Zantac), 150 MG PO TIDM Warfarin Sod (Coumadin), 7.5 MG PO WK Warfarin Sodium (Coumadin), 5 MG PO 6XWK Scheduled PRN Acetaminophen (Tylenol), 650 MG PO Q4 PRN for Mild Pain Albuterol Hfa (Ventolin Hfa), 2 PUFFS INH Q6 PRN for SOB/Wheezing Clotrimazole (Topical) (Clotrimazole Anti-Fungal), 1 APPLN TOP DAILY PRN for UNDECIDED Fluticasone Propionate (Nasal) (Flonase Allergy Relief), 1-2 SPRAY PILI BID PRN for CONGESTION Furosemide (Lasix), 40 MG PO DAILY PRN for SWELLING Hydrocortisone Butyrate (Locoid), 1 APPLN TOP DAILY PRN for UNDECIDED Lorazepam (Lorazepam), 0.5 MG PO BID PRN for Anxiety Saline (Saline Mist), 2 SPRAYS NA UD PRN for DRYNESS Senna (Senokot), 1 TAB PO QPM PRN for Constipation Triamcinolone Acet (Aristocort 0.1%), 1 APPLN TOP DAILY PRN for UNDECIDED Physical Exam Vital Signs Date Time Temp Pulse Resp B/P (MAP) Pulse Ox O2 Delivery O2 Flow Rate FiO2 11/01/16 07:02 54 18 183/62 96 11/01/16 06:10 52 18 187/66 96 Room Air 11/01/16 05:34 48 18 178/66 98 Room Air 11/01/16 03:20 36.7 52 18 180/66 94 Room Air Physical Exam VITALS: Vitals are noted on the nurse's note and reviewed by myself. Vital signs stable. GENERAL: This is a 36-year-old male, in no acute distress, nondiaphoretic, well- developed well-nourished. SKIN: The skin was without rashes. EARS: External auditory canals clear, tympanic membranes pearly leslie without erythema or effusion bilaterally. EYES: Pupils equal round and reactive to light and accommodation. Conjunctivae without injection, sclerae without icterus. NOSE: Patent, no bleeding. MOUTH: There is a small amount of oozing blood from the left lower gums. HEART: Regular rate and rhythm without murmurs gallops or rubs. LUNGS: Clear to auscultation bilaterally without wheezes, rales or rhonchi. NEURO: Patient was alert and oriented to person place and time. Medical Decision & Procedures Laboratory Results 11/01/16 04:00 Red Blood Count 4.30, Mean Corpuscular Volume 87.4, Mean Corpuscular Hemoglobin 31.9, Mean Corpuscular Hemoglobin Concent 36.4, Mean Platelet Volume 9.2, Neutrophils (%) (Auto) 72.3, Lymphocytes (%) (Auto) 14.0, Monocytes (%) (Auto) 11.5, Eosinophils (%) (Auto) 1.4, Basophils (%) (Auto) 0.4, Neutrophils # (Auto ) 3.73, Lymphocytes # (Auto) 0.72, Monocytes # (Auto) 0.59, Eosinophils # (Auto ) 0.07, Basophils # (Auto) 0.02 Test 11/01/16 04:00 White Blood Count 5.15 K/uL (4.8-10.8) Red Blood Count 4.30 M/uL (4.7-6.1) Hemoglobin 13.7 g/dL (14.0-18.0) Hematocrit 37.6 % (42-52) Mean Corpuscular Volume 87.4 fL (80-100) Mean Corpuscular Hemoglobin 31.9 pg (25-34) Mean Corpuscular Hemoglobin Concent 36.4 g/dl (32-36) Platelet Count 124 K/uL (130-400) Mean Platelet Volume 9.2 fL (7.4-10.4) Neutrophils (%) (Auto) 72.3 % Lymphocytes (%) (Auto) 14.0 % Monocytes (%) (Auto) 11.5 % Eosinophils (%) (Auto) 1.4 % Basophils (%) (Auto) 0.4 % Neutrophils # (Auto) 3.73 K/uL (1.4-6.5) Lymphocytes # (Auto) 0.72 K/uL (1.2-3.4) Monocytes # (Auto) 0.59 K/uL (0.11-0.59) Eosinophils # (Auto) 0.07 K/uL (0-0.5) Basophils # (Auto) 0.02 K/uL (0-0.2) RDW Standard Deviation 48.2 fL (36.4-46.3) RDW Coefficient of Variation 15.0 % (11.5-14.5) Immature Granulocyte % (Auto) 0.4 % Immature Granulocyte # (Auto) 0.02 K/uL (0.00-0.02) Prothrombin Time 29.6 SECONDS (9.0-12.0) Prothromb Time International Ratio 2.7 (0.9-1.1) Activated Partial Thromboplast Time 39.0 SECONDS (21.0-31.0) Partial Thromboplastin Ratio 1.5 Medications Administered Medications (Trade) Dose Ordered Sig/Martine Route Start Time Stop Time Status Last Admin Dose Admin Lorazepam (Ativan Tab) 0.5 mg NOW STAT SL 11/01/16 04:04 11/01/16 04:05 DC 11/01/16 04:04 0.5 MG Aminocaproic Acid (Amicar 5% Mouthwash) 100 ml ONE ONCE PO 11/01/16 05:00 11/01/16 05:01 DC 11/01/16 05:52 100 ML ED Course The patient was evaluated as above. Labs were drawn. There is no active bleeding at this time. The patient was evaluated and now has oozing blood from the gums. Pressure was applied. Patient was reevaluated and had a small amount of continued bleeding. Patient was given Amicar solution to rinse with. Gauze was reapplied. Patient was reevaluated and the bleeding has slowed. He was encouraged to keep pressure on the gum at home. Discharge instructions were reviewed with the patient. The patient verbalized understanding of my assessment and treatment plan and was discharged home in good condition. Medical Decision Differential diagnosis includes thrombocytopenia, supratherapeutic INR, among others. The patient is a 76-year-old male who presents today complaining of bleeding gums. The patient had dental work done a few months ago and has some bleeding from the area. He was seen here for similar symptoms a few years ago. Platelet count was found to be stable for the patient. INR is therapeutic. Patient is not anemic. There is a small amount of oozing blood from the area. He was given Amicar mouthwash and pressure was applied. He was encouraged to follow-up closely with his dentist and PCP. He was hypertensive, which I feel is likely secondary to his anxiety regarding his symptoms. He is bradycardic, but states this is normal for him. Based on the patient's presentation and work up, I feel the patient is stable for outpatient treatment. The patient was educated to return to the emergency department for any worsening of their current condition or new/concerning symptoms. He will follow up with his dentis and PCP. Medication Reconcilliation Current Medication List: was personally reviewed by me Blood Pressure Screening Patient's blood pressure: Elevated blood pressure Blood pressure disposition: Elevated BP felt to be situational, Referred to PCP Impression Primary Impression: Bleeding gums Departure Information Dispostion Home / Self-Care Condition GOOD Referrals Olaf Roldan III, M.D. (PCP) Patient Instructions My [facility] Additional Instructions Rinse with 10 mL of the Amicar solution then replace the gauze for any persistent bleeding. Call the Coumadin clinic for directions on whether to take your Coumadin today. Call Dr. Roldan's office and your dentis to schedule follow up today or tomorrow. Return here for any worsening or new/concerning symptoms.
[2016-11-01] MEDS ORDERED: AMINOCAPROIC (AMICAR) 5% MOUTHWASH PO ONE (05:00)
[2016-11-01] MEDS ORDERED: AMINOCAPROIC ACID INJ 5,000 MG, WATER, STERILE FOR INJ 80 ML PO SCH ×2 (05:00)
[2016-11-01 07:02] VITALS: BP 183/62; PULSE 54; O2SAT 96
--- NOTE | 2016-11-01 07:29 | EMERGENCY ROOM VISIT NOTE ---
ED Visit Note First contact with patient: 03:23 I have personally seen and evaluated the patient with the PA. I agree with the diagnosis and management decisions and have been personally involved in the case. Please see Georgina Whitaker PA-C's notes for further details of the history, physical and visit.
== END 2016-11-01 07:04 | disposition home or self-care (01) ==
LOC: EDBD 03:15 → C.EDB 03:16
DX: K06.8 Other specified disorders of gingiva and edentulous alveolar ridge (principal); Z79.01 Long term (current) use of anticoagulants; I48.91 Unspecified atrial fibrillation; F41.9 Anxiety disorder, unspecified; Z85.828 Personal history of other malignant neoplasm of skin; I10 Essential (primary) hypertension; J44.9 Chronic obstructive pulmonary disease, unspecified; K21.9 Gastro-esophageal reflux disease without esophagitis; Z82.49 Family history of ischemic heart disease and other diseases of the circulatory system; Z87.891 Personal history of nicotine dependence; Z79.82 Long term (current) use of aspirin; Z79.899 Other long term (current) drug therapy

== ENCOUNTER 2016-11-16 16:36 | Emergency (ER) | payer OTHER, BC ==
[~2016-11-16] VITALS: Ht 186.7 cm; Wt 80.5 kg
[~2016-11-16 16:36] MED LIST changes: +ALOEMIS TOP; +ASCO500C4 PO; +CLOTCRE5 TOP; -LIDO TOP; +LSN5 PO; -MAG TOP; -OXYC1TAB3 PO; +SALI0.6515; -SALI1SPR15 NAE; +TRMCR180 TOP; -[UNRECOGNIZED DRUG - OTHER] TOP
[2016-11-16 16:37] VITALS: TEMP 36.8; Ht 186.7 cm; Wt 80.5 kg
--- NOTE | 2016-11-16 17:05 | EMERGENCY ROOM VISIT NOTE ---
History Report prepared by Magdiel: Pascual Santoro Under the Supervision of: Dr. Winnie Strauss D.O. First contact with patient: 16:41 Chief Complaint: NOSE BLEED (MINOR) Stated Complaint: NOSE BLEED History of Present Illness The patient is a 76 year old male who presents to the Emergency Room with complaints of epistaxis that began this afternoon. 3 hours ago, the patient fell asleep in his recliner. About an hour later, he woke up and noticed that his left nostril was bleeding. He notes that he had a coughing fit before he fell asleep. He used ice to help slow the bleeding. He is on Coumadin for atrial fibrillation. He has a recent history of nose bleeds that he received two different remedies from [email or web address] that he tried to use. He denies any other symptoms at this time. His last Coumadin level was around 2.5-2.7. Source of History: patient Onset: this afternoon Position: nose (Left nostril) Symptom Intensity: moderate Quality: other (Bleeding) Timing: constant Modifying Factors (Relieving): ice Note: He denies any abnormal symptoms at this time. Review of Systems See HPI for pertinent positives & negatives. A total of 10 systems reviewed and were otherwise negative. Past Medical & Surgical Medical Problems: (1) Atrial fibrillation (2) Basal cell carcinoma of neck (3) Basal cell carcinoma of nose (4) Benign hypertension (5) Chronic obstructive lung disease (6) Dizziness (7) Elevated troponin (8) Food Impaction (9) Gastroesophageal reflux disease (10) Hypertension (11) SOB (shortness of breath) Family History FHx: hypertension Social History Smoking Status: Former Smoker Smokeless Tobacco Use: No Alcohol Use: occasionally Drug Use: none Marital Status: single, Housing Status: lives alone Occupation Status: retired Current/Historical Medications Scheduled Alfuzosin HCl (Alfuzosin HCl ER), 10 MG PO HS Aloe-Sodium Chloride ([place] Saline Nasal Gel), 1 APPLN TOP TID Amiodarone HCl (Amiodarone HCl), 200 MG PO DAILY Ascorbic Acid (Vitamin C), 500 MG PO QAM Ascorbic Acid (Vitamin C Cr), 500 MG PO DAILY Aspirin (Aspirin Chewable), 81 MG PO QAM Atorvastatin (Lipitor), 20 MG PO HS Calcium Carbonate-Cholecalcife (Calcium 600+D3 600-400 mg-Unit), 1 TAB PO DAILY Docusate Sodium (Docusate Sodium), 100 MG PO BID Magnesium Oxide (Mag-Ox), 400 MG PO BID Metoprolol Succinate (Metoprolol Succinate ER), 100 MG PO QAM Multivitamins/Minerals (Mvi With Minerals), 1 TAB PO DAILY Oxybutynin Chloride (Ditropan), 5 MG PO HS Polyethylene Glycol 3350 (Miralax), 1 DOSE PO DAILY Potassium Chloride Microencaps (Potassium Chloride Cr), 10 MEQ PO DAILY Ranitidine (Zantac), 150 MG PO TIDM Warfarin Sod (Coumadin), 7.5 MG PO WK Warfarin Sodium (Coumadin), 5 MG PO 6XWK Scheduled PRN Acetaminophen (Tylenol), 650 MG PO Q4 PRN for Mild Pain Albuterol Hfa (Ventolin Hfa), 2 PUFFS INH Q6 PRN for SOB/Wheezing Clotrimazole (Topical) (Clotrimazole Anti-Fungal), 1 APPLN TOP DAILY PRN for UNDECIDED Fluticasone Propionate (Nasal) (Flonase Allergy Relief), 1-2 SPRAY PILI BID PRN for CONGESTION Furosemide (Lasix), 40 MG PO DAILY PRN for SWELLING Hydrocortisone Butyrate (Locoid), 1 APPLN TOP DAILY PRN for UNDECIDED Lorazepam (Lorazepam), 0.5 MG PO BID PRN for Anxiety Saline (Saline Mist), 2 SPRAYS NA UD PRN for DRYNESS Senna (Senokot), 1 TAB PO QPM PRN for Constipation Triamcinolone Acet (Aristocort 0.1%), 1 APPLN TOP DAILY PRN for UNDECIDED Miscellaneous Medications Lisinopril (Zestril), 10 MG PO Allergies Coded Allergies: Amlodipine (Verified Allergy, Unknown, EDEMA, 06/22/15) Guaifenesin (Verified Allergy, Unknown, GETS REALLY SICK FROM MUCINEX, ) Physical Exam Vital Signs Date Time Temp Pulse Resp B/P (MAP) Pulse Ox O2 Delivery O2 Flow Rate FiO2 11/16/16 17:57 57 20 155/75 95 Room Air 11/16/16 17:19 164/84 11/16/16 16:49 57 18 180/64 97 Room Air 11/16/16 16:37 36.8 58 18 191/66 93 Room Air Physical Exam GENERAL: alert, very anxious appearing, well nourished, no distress, non-toxic EYE EXAM: normal conjunctiva, PERRL and EOM's grossly intact NASAL EXAM: There is a fresh clot in the left nare along the medial aspect. No active bleeding. The right nare is unremarkable. Mild hyperemia along the medical mucosal aspect. OROPHARYNX: There is a fresh clot noted in the posterior oropharynx without any other dental or gingival bleeding. NECK: supple, no nuchal rigidity, no adenopathy, non-tender LUNGS: Clear to auscultation. Normal chest wall mechanics HEART: no murmurs, S1 normal and S2 normal ABDOMEN: abdomen soft, non-tender, normo-active bowel sounds, no masses, no rebound or guarding. BACK: Back is symmetrical on inspection and there is no deformity, no midline tenderness, no CVA tenderness. SKIN: no rashes and no bruising UPPER EXTREMITIES: upper extremities are grossly normal. LOWER EXTREMITIES: 1+ bilateral lower extremity edema. NEURO EXAM: Normal sensorium, cranial nerves II-XII grossly intact, normal speech, no gross weakness of arms, no gross weakness of legs. Medical Decision & Procedures Laboratory Results 11/16/16 17:11 Test 11/16/16 17:11 Red Blood Count 4.15 M/uL (4.7-6.1) Mean Corpuscular Volume 88.9 fL (80-100) Mean Corpuscular Hemoglobin 31.1 pg (25-34) Mean Corpuscular Hemoglobin Concent 35.0 g/dl (32-36) RDW Standard Deviation 48.6 fL (36.4-46.3) RDW Coefficient of Variation 14.9 % (11.5-14.5) Mean Platelet Volume 9.7 fL (7.4-10.4) Prothrombin Time 35.6 SECONDS (9.0-12.0) Prothromb Time International Ratio 3.2 (0.9-1.1) Laboratory results per my review. Medications Administered Medications (Trade) Dose Ordered Sig/Martine Route Start Time Stop Time Status Last Admin Dose Admin Oxymetazoline HCl (Afrin 0.05% Nasal [place]) 1 sprays NOW ONCE NA 11/16/16 17:15 9/14/17 17:16 DC 11/16/16 17:19 1 SPRAYS ED Course 1641: The patient was evaluated in room C7. A complete history and physical exam was performed. 171: Ordered Oxymetazoline HCl 1 spray NA 1830: Upon reevaluation, the patient is feeling better. I discussed the findings and the treatment plan with the patient. He verbalizes agreement and understanding. He was discharged home. Medical Decision Differential diagnosis: Etiologies such as anterior epistaxis, coagulopathy, traumatic injury, fracture , septal hematoma, posterior epistaxis as well as other pathologies were entertained. Patient well-appearing here and epistaxis controlled. No evidence of foreign body or additional trauma. Likely from patient's Coumadin use and recent nose blowing. Patient's INR mildly supratherapeutic here, he was instructed to skip tonight's dose and then to resume his usual regimen, and have his INR rechecked next week. Patient extremely anxious, however blood pressure only mildly elevated. No vomiting, no fevers. Patient with no trouble breathing. Patient reassured, discussed initial treatment of recurrent episode at home, as well as symptoms to watch and return for, he verbalized understanding and was agreeable with plan. Medication Reconcilliation Current Medication List: was personally reviewed by me Blood Pressure Screening Patient's blood pressure: Elevated blood pressure Blood pressure disposition: Elevated BP felt to be situational Impression Primary Impression: Anticoagulated on Coumadin Additional Impressions: Epistaxis Anxiety Scribe Attestation The scribe's documentation has been prepared under my direction and personally reviewed by me in its entirety. I confirm that the note above accurately reflects all work, treatment, procedures, and medical decision making performed by me. Departure Information Dispostion Home / Self-Care Referrals Olaf Roldan III, M.D. (PCP) Forms HOME CARE DOCUMENTATION FORM, IMPORTANT VISIT INFORMATION, WORK / SCHOOL INSTRUCTIONS Patient Instructions My [facility] Additional Instructions Please follow-up with your family doctor or with ENT regarding the nosebleeds. Do not blow your nose at home for at least 24 hours. You may continue using the saline nasal spray. Please skip your dose of coumadin tonight and continue tomorrow per normal. Please have your coumadin level rechecked next week. If you have any recurrent bleeding that doesn't stop with the nasal clamp and a dose of Afrin, please return to the emergency room. Problem Qualifiers
[2016-11-16] MEDS ORDERED: OXYMETAZOLINE HCL 0.05% NA SPR 15 ML BTL ONE (17:15)
[2016-11-16] MEDS ORDERED: LISI-461 PO (17:28)
[2016-11-16 17:29] LABS: HEMATOCRIT 36.9 % (42-52); MEAN CELL VOLUME 88.9 fL (80-100); MEAN CORPUSCULAR HEMOGLOBIN 31.1 pg (25-34); MEAN PLATELET VOLUME 9.7 fL (7.4-10.4); PLATELET COUNT 120 K/uL (130-400); RED BLOOD COUNT 4.15 M/uL (4.7-6.1); WHITE BLOOD COUNT 6.05 K/uL (4.8-10.8)
[2016-11-16 17:38] LABS: INR 3.2 (0.9-1.1); PROTHROMBIN TIME (PATIENT) 35.6 SECONDS (9.0-12.0)
[2016-11-16 17:57] VITALS: BP 155/75; PULSE 57; O2SAT 95
== END 2016-11-16 18:48 | disposition home or self-care (01) ==
LOC: C.EDB 16:37 → C.EDC 18:48
DX: Z79.01 Long term (current) use of anticoagulants (principal); R04.0 Epistaxis; F41.9 Anxiety disorder, unspecified; I48.91 Unspecified atrial fibrillation; I10 Essential (primary) hypertension; J44.9 Chronic obstructive pulmonary disease, unspecified; K21.9 Gastro-esophageal reflux disease without esophagitis; Z82.49 Family history of ischemic heart disease and other diseases of the circulatory system; Z87.891 Personal history of nicotine dependence; Z79.82 Long term (current) use of aspirin

== ENCOUNTER 2016-12-06 19:18 | Emergency (ER) | payer OTHER, BC ==
[~2016-12-06] VITALS: Ht 185.4 cm; Wt 80.0 kg
[~2016-12-06 19:18] MED LIST changes: +LISI-461 PO; -LSN5 PO
[2016-12-06 19:26] VITALS: TEMP 36.8; Ht 185.4 cm; Wt 80.0 kg
[2016-12-06] MEDS ORDERED: AMINOCAPROIC ACID INJ 5,000 MG, WATER, STERILE FOR INJ 80 ML PO ONE ×2 (20:00)
[2016-12-06] MEDS ORDERED: AMINOCAPROIC (AMICAR) 5% MOUTHWASH PO ONE (20:00)
[2016-12-06] MEDS ORDERED: CEPHALEXIN MONOHYDRATE 250 MG CAP PO ONE (20:15)
[2016-12-06] MEDS ORDERED: CEPHALEXIN 500MG HOME PACK 1 EA BTL PO ONE (20:15)
[2016-12-06] MEDS ORDERED: CEPH500C PO (20:36)
--- NOTE | 2016-12-06 20:39 | EMERGENCY ROOM VISIT NOTE ---
History Report prepared by Magdiel: Willis Kidd Under the Supervision of: Dr. Bony Boo D.O. First contact with patient: 19:42 Chief Complaint: BLEEDING Stated Complaint: BLEEDING Nursing Triage Summary: Patient arrives to ED via BLS transport, complains of bleeding from his gums/teeth that started earlier today. Patient states that he has trouble with this often, was here two months ago for same symptoms. Patient states that he is on coumadin. Patient also notes that he has a cyst/pimple on the back of his neck that he notes has been getting bigger and would like someone to look at it. History of Present Illness The patient is a 76 year old male who presents to the Emergency Room via BLS with complaints of persistent gum bleeding that started earlier today. The patient states that he is "spitting blood". He says that he has been here multiple times for the same issue, and he gets a solution here that makes the bleeding resolve. The patient states that the bleeding is from an area of his lower gum. The patient adds that he has a cyst on the back of his neck that he has had for around 15 years, but has been getting much bigger over the past 3 days. He says that the area on his neck is very painful. He notes that he is on Coumadin. The patient says that his last INR was checked last week and it was 2.5 or 2.6. Source of History: patient Onset: Earlier today Position: other (lower gum) Symptom Intensity: spitting blood Quality: other (bleeding) Timing: other (persistent) Note: No other associated symptoms, but adds that has painful cyst on back of neck that has been getting larger over past few days. Review of Systems See HPI for pertinent positives & negatives. A total of 10 systems reviewed and were otherwise negative. Past Medical & Surgical Medical Problems: (1) Atrial fibrillation (2) Basal cell carcinoma of neck (3) Basal cell carcinoma of nose (4) Benign hypertension (5) Chronic obstructive lung disease (6) Dizziness (7) Elevated troponin (8) Food Impaction (9) Gastroesophageal reflux disease (10) Hypertension (11) SOB (shortness of breath) Family History FHx: hypertension Social History Smoking Status: Never Smoker Alcohol Use: occasionally Drug Use: none Marital Status: single, Housing Status: lives alone Occupation Status: retired Current/Historical Medications Scheduled Alfuzosin HCl (Alfuzosin HCl ER), 10 MG PO HS Aloe-Sodium Chloride ([place] Saline Nasal Gel), 1 APPLN TOP TID Amiodarone HCl (Amiodarone HCl), 200 MG PO DAILY Ascorbic Acid (Vitamin C), 500 MG PO QAM Ascorbic Acid (Vitamin C Cr), 500 MG PO DAILY Aspirin (Aspirin Chewable), 81 MG PO QAM Atorvastatin (Lipitor), 20 MG PO HS Calcium Carbonate-Cholecalcife (Calcium 600+D3 600-400 mg-Unit), 1 TAB PO DAILY Docusate Sodium (Docusate Sodium), 100 MG PO BID Magnesium Oxide (Mag-Ox), 400 MG PO BID Metoprolol Succinate (Metoprolol Succinate ER), 100 MG PO QAM Multivitamins/Minerals (Mvi With Minerals), 1 TAB PO DAILY Oxybutynin Chloride (Ditropan), 5 MG PO HS Polyethylene Glycol 3350 (Miralax), 1 DOSE PO DAILY Potassium Chloride Microencaps (Potassium Chloride Cr), 10 MEQ PO DAILY Ranitidine (Zantac), 150 MG PO TIDM Warfarin Sod (Coumadin), 7.5 MG PO WK Warfarin Sodium (Coumadin), 5 MG PO 6XWK Scheduled PRN Acetaminophen (Tylenol), 650 MG PO Q4 PRN for Mild Pain Albuterol Hfa (Ventolin Hfa), 2 PUFFS INH Q6 PRN for SOB/Wheezing Clotrimazole (Topical) (Clotrimazole Anti-Fungal), 1 APPLN TOP DAILY PRN for UNDECIDED Fluticasone Propionate (Nasal) (Flonase Allergy Relief), 1-2 SPRAY PILI BID PRN for CONGESTION Furosemide (Lasix), 40 MG PO DAILY PRN for SWELLING Hydrocortisone Butyrate (Locoid), 1 APPLN TOP DAILY PRN for UNDECIDED Lorazepam (Lorazepam), 0.5 MG PO BID PRN for Anxiety Saline (Saline Mist), 2 SPRAYS NA UD PRN for DRYNESS Senna (Senokot), 1 TAB PO QPM PRN for Constipation Triamcinolone Acet (Aristocort 0.1%), 1 APPLN TOP DAILY PRN for UNDECIDED Miscellaneous Medications Lisinopril (Zestril), 10 MG PO Allergies Coded Allergies: Amlodipine (Verified Allergy, Unknown, EDEMA, 06/22/15) Guaifenesin (Verified Allergy, Unknown, GETS REALLY SICK FROM MUCINEX, ) Physical Exam Vital Signs Date Time Temp Pulse Resp B/P (MAP) Pulse Ox O2 Delivery O2 Flow Rate FiO2 12/06/16 19:44 50 12/06/16 19:26 36.8 50 18 165/53 96 Room Air Physical Exam CONSTITUTIONAL/VITAL SIGNS: Reviewed / noted above. GENERAL: Non-toxic in appearance. INTEGUMENTARY: Warm, dry, and [place]. HEAD: Normocephalic. EYES: without scleral icterus or trauma. ENT/OROPHARYNX: There is a minimal amount of bleeding noted from the left lower gums in the area of the left lower molars. LYMPHADENOPATHY/NECK: There is a 1 inch diameter cyst on the posterior neck that appears to be infected with purulent drainage removed from the cyst. Is supple without lymphadenopathy or meningismus. RESPIRATORY: Lungs clear and equal. CARDIOVASCULAR: Regular rate and rhythm. GI/ABDOMEN: Soft and nontender. No organomegaly or pulsatile mass. No rebound or guarding. Normal bowel sounds. EXTREMITIES: Warm and well perfused. BACK: No CVA tenderness. NEUROLOGICAL: Intact without focal deficits. PSYCHIATRIC: normal affect. MUSCULOSKELETAL: Normally developed with good muscle tone. Medical Decision & Procedures Laboratory Results Test 12/06/16 20:17 Bedside Prothrombin Time INR 3.3 (0.9-1.1) ED Course 194: Previous medical records were reviewed. The patient was evaluated in room C11B. A complete history and physical examination was performed. 2000: Ordered Aminocaproic Acid/Sterile Water 10 ml of solution PO. Medical Decision Differential diagnosis includes but is not limited to: elevated INR, trauma, infection. This is a 76-year-old male who presents to the ED with a chief complaint of bleeding gums. The patient states that he developed a bleeding gums today. He states that he has had this in the past. The patient is chronically on Coumadin. The patient's INR was last checked and was 2.5 last week. The patient also reports some swelling and discomfort in the back of his neck. He states that he has had a cyst there for a long time but it never caused him any problems. It is now uncomfortable. His exam reveals minimal bleeding from the left inferior posterior molar area mostly on the medial aspect. There is minimal bleeding. The patient also on exam has a cyst that appears to have some evidence of a cellulitis and abscess. Purulent drainage was expressed out of this abscess. The patient was given Keflex by mouth. The patient was given Amicar mouthwash for his dental bleeding. His INR today is 3.3. He was told to discontinue his Coumadin for the next 24 hours. He was told to follow-up with his PCP as needed. He was given a Keflex home pack and a prescription for Keflex for the next 5 days. Medication Reconcilliation Current Medication List: was personally reviewed by me Blood Pressure Screening Patient's blood pressure: Elevated blood pressure Blood pressure disposition: Elevated BP felt to be situational Impression Primary Impression: Bleeding gums Additional Impression: Abscess Scribe Attestation The scribe's documentation has been prepared under my direction and personally reviewed by me in its entirety. I confirm that the note above accurately reflects all work, treatment, procedures, and medical decision making performed by me. Departure Information Dispostion Home / Self-Care Prescriptions Cephalexin Monohydrate (Keflex) 500 Mg Cap 500 MG PO QID, #20 CAP Prov: Bony Boo D.O. 12/06/16 Referrals Olaf Roldan III, M.D. (PCP) Patient Instructions My [facility] Additional Instructions Do not take your Coumadin dose tonight or tomorrow. Your INR is 3.3. Keflex as prescribed 4 times a day until finished. Use Amicar mouthwash: use every couple hours swish and spit as needed for bleeding gums. Return for any concerns or worsening. Problem Qualifiers
[2016-12-06 21:00] VITALS: BP 166/66; PULSE 53; O2SAT 95
== END 2016-12-06 21:00 | disposition home or self-care (01) ==
LOC: EDBD 19:18 → C.EDC 19:21
DX: K06.8 Other specified disorders of gingiva and edentulous alveolar ridge (principal); L02.11 Cutaneous abscess of neck; Z79.01 Long term (current) use of anticoagulants; I48.91 Unspecified atrial fibrillation; I10 Essential (primary) hypertension; J44.9 Chronic obstructive pulmonary disease, unspecified; K21.9 Gastro-esophageal reflux disease without esophagitis; Z82.49 Family history of ischemic heart disease and other diseases of the circulatory system; Z79.899 Other long term (current) drug therapy

== ENCOUNTER 2016-12-21 02:26 | Emergency (ER) | payer OTHER, BC ==
[~2016-12-21] VITALS: Ht 185.4 cm; Wt 80.0 kg
[~2016-12-21 02:26] MED LIST changes: +CEPH500C PO
[2016-12-21 02:28] VITALS: TEMP 36.4; Ht 185.4 cm; Wt 80.0 kg
[2016-12-21] MEDS ORDERED: OXYCODONE HCL IR 5 MG TAB (IMMEDIATE RELEASE) PO STA (02:44)
--- NOTE | 2016-12-21 02:48 | EMERGENCY ROOM VISIT NOTE ---
History Report prepared by Magdiel: Max Cabrera Under the Supervision of: Dr. Cleveland Robledo M.D. First contact with patient: 02:35 Chief Complaint: KNEEPAIN Stated Complaint: RIGHT KNEE PAIN-PULSATING,CAN'T SLEEP History of Present Illness The patient is a 76 year old male who presents to the Emergency Room with complaints of pulsating right knee pain that started yesterday, and he states that the pain comes every 30 seconds and feels like an "electric shock". The patient states that he had knee surgery a long time ago, and he is scheduled for a knee replacement on February 05. He states that starting ten years ago he gets his knee tapped regularly to drain it, and he states that the last drain was a week ago. He states that his Coumadin level was 3.3 a week ago, and then he did not take it for a few days, and it went down to 2. He states that his goal INR is between 2-3. The patient denies any fevers or passing out. He notes that his lisinopril was just increased from 10mg to 20mg. Source of History: patient Onset: yesterday Position: knee (right) Quality: other ("elecrti shock") Timing: other (pulsating) Associated Symptoms: No LOC, No fevers Review of Systems See HPI for pertinent positives & negatives. A total of 6 systems reviewed and were otherwise negative. Past Medical & Surgical Medical Problems: (1) Atrial fibrillation (2) Basal cell carcinoma of neck (3) Basal cell carcinoma of nose (4) Benign hypertension (5) Chronic obstructive lung disease (6) Dizziness (7) Elevated troponin (8) Food Impaction (9) Gastroesophageal reflux disease (10) Hypertension (11) SOB (shortness of breath) Family History FHx: hypertension Social History Smoking Status: Former Smoker Alcohol Use: occasionally Drug Use: none Marital Status: single, Housing Status: lives alone Occupation Status: retired Current/Historical Medications Scheduled Alfuzosin HCl (Alfuzosin HCl ER), 10 MG PO HS Aloe-Sodium Chloride ([place]ield Saline Nasal Gel), 1 APPLN TOP TID Amiodarone HCl (Amiodarone HCl), 200 MG PO DAILY Ascorbic Acid (Vitamin C), 500 MG PO QAM Ascorbic Acid (Vitamin C Cr), 500 MG PO DAILY Aspirin (Aspirin Chewable), 81 MG PO QAM Atorvastatin (Lipitor), 20 MG PO HS Calcium Carbonate-Cholecalcife (Calcium 600+D3 600-400 mg-Unit), 1 TAB PO DAILY Docusate Sodium (Docusate Sodium), 100 MG PO BID Lisinopril (Zestril), 20 MG PO DAILY Magnesium Oxide (Mag-Ox), 400 MG PO BID Metoprolol Succinate (Metoprolol Succinate ER), 100 MG PO QAM Multivitamins/Minerals (Mvi With Minerals), 1 TAB PO DAILY Polyethylene Glycol 3350 (Miralax), 1 DOSE PO DAILY Potassium Chloride Microencaps (Potassium Chloride Cr), 10 MEQ PO DAILY Ranitidine (Zantac), 150 MG PO TIDM Warfarin Sod (Coumadin), 7.5 MG PO WK Warfarin Sodium (Coumadin), 5 MG PO 6XWK Scheduled PRN Acetaminophen (Tylenol), 650 MG PO Q4 PRN for Mild Pain Albuterol Hfa (Ventolin Hfa), 2 PUFFS INH Q6 PRN for SOB/Wheezing Clotrimazole (Topical) (Clotrimazole Anti-Fungal), 1 APPLN TOP DAILY PRN for UNDECIDED Fluticasone Propionate (Nasal) (Flonase Allergy Relief), 1-2 SPRAY PILI BID PRN for CONGESTION Furosemide (Lasix), 40 MG PO DAILY PRN for SWELLING Hydrocortisone Butyrate (Locoid), 1 APPLN TOP DAILY PRN for UNDECIDED Lorazepam (Lorazepam), 0.5 MG PO BID PRN for Anxiety Oxycodone Ir (Roxicodone Ir), 1 TAB PO Q4H PRN for Pain Saline (Saline Mist), 2 SPRAYS NA UD PRN for DRYNESS Senna (Senokot), 1 TAB PO QPM PRN for Constipation Triamcinolone Acet (Aristocort 0.1%), 1 APPLN TOP DAILY PRN for UNDECIDED Allergies Coded Allergies: Amlodipine (Verified Allergy, Unknown, EDEMA, 06/22/15) Guaifenesin (Verified Allergy, Unknown, GETS REALLY SICK FROM MUCINEX, ) Physical Exam Vital Signs Date Time Temp Pulse Resp B/P (MAP) Pulse Ox O2 Delivery O2 Flow Rate FiO2 12/21/16 04:33 59 22 171/59 95 12/21/16 02:28 36.4 55 19 176/60 95 Room Air Physical Exam GENERAL: Patient is well appearing and in no acute distress. HEENT: No acute trauma, normocephalic atraumatic, mucous membranes moist, no nasal congestion, no scleral icterus. NECK: No stridor, no adenopathy, no meningismus, trachea is midline. LUNGS: No dyspnea. Clear to auscultation and equal bilaterally. No wheeze, no rhonchi. HEART: Regular rate and rhythm. No murmurs, rubs, gallops appreciated. EXTREMITIES: Large right knee effusion. Mild pain with range of motion.No erythema. Minimal tenderness to palpation. Normal motion all extremities, no cyanosis. NEUROLOGIC: Alert and oriented, no acute motor or sensory deficits, no focal weakness, cranial nerves grossly intact. SKIN: No rash, no jaundice, no diaphoresis. Medical Decision & Procedures Laboratory Results 12/21/16 03:11 Red Blood Count 3.85, Mean Corpuscular Volume 91.4, Mean Corpuscular Hemoglobin 31.7, Mean Corpuscular Hemoglobin Concent 34.7, Mean Platelet Volume 9.3, Neutrophils (%) (Auto) 70.7, Lymphocytes (%) (Auto) 15.9, Monocytes (%) (Auto) 11.0, Eosinophils (%) (Auto) 1.6, Basophils (%) (Auto) 0.4, Neutrophils # (Auto ) 3.61, Lymphocytes # (Auto) 0.81, Monocytes # (Auto) 0.56, Eosinophils # (Auto ) 0.08, Basophils # (Auto) 0.02 12/21/16 03:11 Test 12/21/16 03:11 White Blood Count 5.10 K/uL (4.8-10.8) Red Blood Count 3.85 M/uL (4.7-6.1) Hemoglobin 12.2 g/dL (14.0-18.0) Hematocrit 35.2 % (42-52) Mean Corpuscular Volume 91.4 fL (80-100) Mean Corpuscular Hemoglobin 31.7 pg (25-34) Mean Corpuscular Hemoglobin Concent 34.7 g/dl (32-36) Platelet Count 143 K/uL (130-400) Mean Platelet Volume 9.3 fL (7.4-10.4) Neutrophils (%) (Auto) 70.7 % Lymphocytes (%) (Auto) 15.9 % Monocytes (%) (Auto) 11.0 % Eosinophils (%) (Auto) 1.6 % Basophils (%) (Auto) 0.4 % Neutrophils # (Auto) 3.61 K/uL (1.4-6.5) Lymphocytes # (Auto) 0.81 K/uL (1.2-3.4) Monocytes # (Auto) 0.56 K/uL (0.11-0.59) Eosinophils # (Auto) 0.08 K/uL (0-0.5) Basophils # (Auto) 0.02 K/uL (0-0.2) RDW Standard Deviation 45.9 fL (36.4-46.3) RDW Coefficient of Variation 13.8 % (11.5-14.5) Immature Granulocyte % (Auto) 0.4 % Immature Granulocyte # (Auto) 0.02 K/uL (0.00-0.02) Prothrombin Time 23.7 SECONDS (9.0-12.0) Prothromb Time International Ratio 2.1 (0.9-1.1) Anion Gap 6.0 mmol/L (3-11) Est Creatinine Clear Calc Drug Dose 72.5 ml/min Estimated GFR () 86.5 Estimated GFR (Non- 74.6 BUN/Creatinine Ratio 14.1 (10-20) Calcium Level 8.2 mg/dl (8.5-10.1) C-Reactive Protein 0.52 mg/dl (0-0.29) Laboratory results as reviewed by me. Medications Administered Medications (Trade) Dose Ordered Sig/Martine Route Start Time Stop Time Status Last Admin Dose Admin Oxycodone HCl (Roxicodone Immediate Rel Tab) 5 mg NOW STAT PO 12/21/16 02:44 12/21/16 02:46 DC 12/21/16 02:50 5 MG Oxycodone HCl (Roxicodone Immediate Rel 5MG Home Pack) 1 homepack UD ONCE PO 12/21/16 04:00 12/21/16 04:01 DC 12/21/16 04:23 1 HOMEPACK ED Course 0235: The patient was evaluated in room B2. A complete history and physical exam was performed. 0244: Oxycodone HCl 5mg PO 0355: I reevaluated the patient, and he had complete resolution of pain. He asked to go home with the oxycodone IR, and I discussed at length its risks and restrictions. I asked case management to set up an outpatient orthopedic evaluation. The patient will be discharged home. 0400: Oxycodone HCl 1 Home Pack PO Medical Decision Differential: Fracture, Dislocation, Cellulitis, Septic Joint, Ligamentous Injury, Effusion, DVT, Elevated INR, amongst other pathologies entertained. 76 yr olc male arrives wit large right knee effusion. Minimal pain with ROM and without erythema nor fevers, nor significant TTP I do not feel this is septic joint, especially given unremarkable WBC/CRP at this time. No evidence DVT by exam. He is on Coumadin and I suspect has had some hemarthrosis, likely due to recent injection. INR therapeutic. complete resolution with Oxy IR and patient awake, alert, oriented. Will send home with limited number as with hemarthrosis this may be sore for several days. Case Management in to talk to him about setting up ortho follow up for re-evaluation. Reviewed at length symptoms requiring return. Medication Reconcilliation Current Medication List: was personally reviewed by me Blood Pressure Screening Patient's blood pressure: Elevated blood pressure Blood pressure disposition: Referred to PCP Impression Primary Impression: Knee effusion, right Additional Impressions: Anticoagulation adequate with anticoagulant therapy Hypertension Scribe Attestation The scribe's documentation has been prepared under my direction and personally reviewed by me in its entirety. I confirm that the note above accurately reflects all work, treatment, procedures, and medical decision making performed by me. Departure Information Dispostion Home / Self-Care Prescriptions Oxycodone Ir (Roxicodone Ir) 5 Mg Tab 1 TAB PO Q4H Y for Pain, #12 TAB Prov: Cleveland Robledo M.D. 12/21/16 Referrals Olaf Roldan III, M.D. (PCP) Forms HOME CARE DOCUMENTATION FORM, IMPORTANT VISIT INFORMATION Patient Instructions ED Effusion Knee, My [facility] Additional Instructions You have received a narcotic pain medication prescription. These medications may cause drowsiness and should not be used with other sedative medications. Do not drive, drink alcohol, perform dangerous activities, nor make important decisions after taking these medications. terminal worker use or inappropriate use may lead to addiction. These medications can cause constipation. Use over the counter anti-constipation medications as needed. Avoid any activities where you may be at risk of falling while on this medication. Your blood pressure was elevated during this visit. This is quite common in many people who are being evaluated in the Emergency Department for many reasons. However, it is important that you have your Primary Care Provider recheck your blood pressure and discuss whether treatment will be needed. detention elevated blood pressure can lead to strokes, heart attacks, kidney failure amongst other medical issues. If you develop severe headaches, chest pain, weakness in arms or legs, or other concerning symptoms call 911. Problem Qualifiers
[2016-12-21 03:27] LABS: BASO % 0.4 %; BASO ABS # 0.02 K/uL (0-0.2); COMPLETE YES; EOS % 1.6 %; HEMATOCRIT 35.2 % (42-52); IG% 0.4 %; LYMPH % 15.9 %; LYMPH ABS # 0.81 K/uL (1.2-3.4); MEAN CELL VOLUME 91.4 fL (80-100); MEAN CORPUSCULAR HEMOGLOBIN 31.7 pg (25-34); MEAN CORPUSCULAR HGB CONC 34.7 g/dl (32-36); MEAN PLATELET VOLUME 9.3 fL (7.4-10.4); NEUT % 70.7 %; PLATELET COUNT 143 K/uL (130-400); RED BLOOD COUNT 3.85 M/uL (4.7-6.1)
[2016-12-21 03:33] LABS: INR 2.1 (0.9-1.1); PROTHROMBIN TIME (PATIENT) 23.7 SECONDS (9.0-12.0)
[2016-12-21] MEDS ORDERED: LISI-725 PO (03:42)
[2016-12-21 03:46] LABS: BUN/CREATININE RATIO 14.1 (10-20); CALCIUM 8.2 mg/dl (8.5-10.1); CREATININE 0.98 mg/dl (0.60-1.40); POTASSIUM 4.1 mmol/L (3.5-5.1)
[2016-12-21 03:48] LABS: C-REACTIVE PROTEIN 0.52 mg/dl (0-0.29)
[2016-12-21] MEDS ORDERED: OXYC1TAB3 PO (03:58)
[2016-12-21] MEDS ORDERED: OXYCODONE IR HOME PACK PO ONE (04:00)
[2016-12-21 04:33] VITALS: BP 171/59; PULSE 59; O2SAT 95
== END 2016-12-21 04:35 | disposition home or self-care (01) ==
LOC: C.EDB 02:28
DX: M25.461 Effusion, right knee (principal); Z79.01 Long term (current) use of anticoagulants; I10 Essential (primary) hypertension; I48.91 Unspecified atrial fibrillation; J44.9 Chronic obstructive pulmonary disease, unspecified; K21.9 Gastro-esophageal reflux disease without esophagitis; Z82.49 Family history of ischemic heart disease and other diseases of the circulatory system; Z87.891 Personal history of nicotine dependence; Z79.82 Long term (current) use of aspirin

== ENCOUNTER 2017-02-06 06:04 | Inpatient (IN) | payer OTHER, BC ==
[2017-01-09 09:48] VITALS: Ht 185.4 cm; Wt 79.5 kg
--- NOTE | 2017-01-09 10:37 | PAT Medication Instructions ---
Service Date Jan 09, 2017. Current Home Medication List Acetaminophen (Tylenol), 650 MG PO Q4 PRN for Mild Pain Albuterol Hfa (Ventolin Hfa), 2 PUFFS INH Q6 PRN for SOB/Wheezing Alfuzosin HCl (Alfuzosin HCl ER), 10 MG PO HS Aloe-Sodium Chloride (Hewitt Saline Nasal Gel), 1 APPLN TOP TID Amiodarone HCl (Amiodarone HCl), 200 MG PO QAM Ascorbic Acid (Vitamin C), 500 MG PO QAM Aspirin (Aspirin Chewable), 81 MG PO QAM Atorvastatin (Lipitor), 30 MG PO HS Atorvastatin (Lipitor), 20 MG PO HS Calcium Carbonate-Cholecalcife (Calcium 600+D3 600-400 mg-Unit), 1 TAB PO QAM Clotrimazole (Topical) (Clotrimazole Anti-Fungal), 1 APPLN TOP DAILY PRN for UNDECIDED Docusate Sodium (Docusate Sodium), 100 MG PO BID Fluticasone Propionate (Nasal) (Flonase Allergy Relief), 1-2 SPRAY PILI BID PRN for CONGESTION Furosemide (Lasix), 40 MG PO DAILY PRN for SWELLING Hydrocortisone Butyrate (Locoid), 1 APPLN TOP DAILY PRN for UNDECIDED Lisinopril (Zestril), 30 MG PO QAM Lorazepam (Lorazepam), 0.5 MG PO BID PRN for Anxiety Magnesium Oxide (Mag-Ox), 400 MG PO BID Metoprolol Succinate (Metoprolol Succinate ER), 100 MG PO QAM Multivitamins/Minerals (Mvi With Minerals), 1 TAB PO noon Polyethylene Glycol 3350 (Miralax), 1 DOSE PO DAILY Potassium Chloride Microencaps (Potassium Chloride Cr), 10 MEQ PO QAM Ranitidine (Zantac), 150 MG PO TIDM Saline (Saline Mist), 2 SPRAYS NA UD PRN for DRYNESS Senna (Senokot), 1 TAB PO QPM PRN for Constipation Triamcinolone Acet (Aristocort 0.1%), 1 APPLN TOP DAILY PRN for UNDECIDED Warfarin Sod (Coumadin), 7.5 MG PO WK Warfarin Sodium (Coumadin), 5 MG PO 6XWK Medication Instructions For Your Scheduled Surgery - Hold the following medications per your surgeon's and prescriber's instructions: Warfarin Sod (Coumadin), 7.5 MG PO WK Warfarin Sodium (Coumadin), 5 MG PO 6XWK - Hold the following medications 24 hours prior to surgery: Triamcinolone Acet (Aristocort 0.1%), 1 APPLN TOP DAILY PRN Hydrocortisone Butyrate (Locoid), 1 APPLN TOP DAILY PRN Clotrimazole (Topical) (Clotrimazole Anti-Fungal), 1 APPLN TOP DAILY PRN - Hold the following medications the morning of surgery: Senna (Senokot), 1 TAB PO QPM PRN for Constipation Magnesium Oxide (Mag-Ox), 400 MG PO BID Multivitamins/Minerals (Mvi With Minerals), 1 TAB PO noon Polyethylene Glycol 3350 (Miralax), 1 DOSE PO DAILY Potassium Chloride Microencaps (Potassium Chloride Cr), 10 MEQ PO QAM Lisinopril (Zestril), 30 MG PO QAM Furosemide (Lasix), 40 MG PO DAILY PRN for SWELLING Docusate Sodium (Docusate Sodium), 100 MG PO BID Calcium Carbonate-Cholecalcife (Calcium 600+D3 600-400 mg-Unit), 1 TAB PO QAM Ascorbic Acid (Vitamin C), 500 MG PO QAM - Take the following medications the morning of surgery with a sip of water: Metoprolol Succinate (Metoprolol Succinate ER), 100 MG PO QAM Ranitidine (Zantac), 150 MG PO TIDM Saline (Saline Mist), 2 SPRAYS NA UD PRN for DRYNESS (if needed) Lorazepam (Lorazepam), 0.5 MG PO BID PRN for Anxiety (if needed) Fluticasone Propionate (Nasal) (Flonase Allergy Relief), 1-2 SPRAY PILI BID PRN for CONGESTION (if needed) Aspirin (Aspirin Chewable), 81 MG PO QAM Amiodarone HCl (Amiodarone HCl), 200 MG PO QAM Aloe-Sodium Chloride (Hewitt Saline Nasal Gel), 1 APPLN TOP TID Acetaminophen (Tylenol), 650 MG PO Q4 PRN for Mild Pain (if needed, can be taken up to four hours before surgery) Albuterol Hfa (Ventolin Hfa), 2 PUFFS INH Q6 PRN for SOB/Wheezing (if needed, AND BRING WITH YOU TO THE HOSPITAL ON THE DAY OF SURGERY) - Take the following medications as scheduled the night before surgery: Saline (Saline Mist), 2 SPRAYS NA UD PRN for DRYNESS (if needed) Lorazepam (Lorazepam), 0.5 MG PO BID PRN for Anxiety (if needed) Fluticasone Propionate (Nasal) (Flonase Allergy Relief), 1-2 SPRAY PILI BID PRN for CONGESTION (if needed) Atorvastatin (Lipitor), 30 MG PO HS Atorvastatin (Lipitor), 20 MG PO HS Docusate Sodium (Docusate Sodium), 100 MG PO BID Aloe-Sodium Chloride (Hewitt Saline Nasal Gel), 1 APPLN TOP TID Acetaminophen (Tylenol), 650 MG PO Q4 PRN for Mild Pain (if needed) Albuterol Hfa (Ventolin Hfa), 2 PUFFS INH Q6 PRN for SOB/Wheezing (if needed) Alfuzosin HCl (Alfuzosin HCl ER), 10 MG PO HS Furosemide (Lasix), 40 MG PO DAILY PRN for SWELLING (if needed) If you have any questions please call us at [phone] or [phone] or [phone]
[2017-01-09 11:31] LABS: INR 3.5 (0.9-1.1); PARTIAL THROMBOPLASTIN RATIO 1.6; PROTHROMBIN TIME (PATIENT) 39.3 SECONDS (9.0-12.0)
--- NOTE | 2017-02-02 22:46 | HISTORY & PHYSICAL EXAMINATION ---
DATE OF ADMISSION: 02/06/2017 CHIEF COMPLAINT: Right knee pain, discomfort and instability. HISTORY OF PRESENT ILLNESS: This is a 76-year-old long-term patient of mine who now presents for surgical treatment of his right knee. He has a long history of knee problems, had some type of open surgery done in the 1970s of unclear nature. We had actually scheduled him for surgery 5 years ago, but he had to cancel due to various cardiac reasons and a thoracic aneurysm. He now has had this thoracic aneurysm fixed about a year ago and had a cardiac stent placed. He has done well from a medical standpoint and completely cardiac hensley asymptomatic. He continues to be unstable by his knee pain. He has been using a cane for quite some time as well as a brace. His knee gives out. We have been aspirating his knee intermittently, but has become less successful as far as managing his pain. He would like to have his knee replaced. PAST MEDICAL HISTORY: 1. Hypertension. 2. Paroxysmal atrial fibrillation. 3. History of thoracic aneurysm repaired at [facility] a year ago. 4. Coronary artery disease, status post stent placement many years ago. 5. History of TIA. 6. Low back pain. 7. Gastroesophageal reflux disease. PAST SURGICAL HISTORY: Include; 1. Right open knee surgery in 1970. 2. Aortic aneurysm repair and cardiac stent placement a year ago at [facility]. ALLERGIES: None. CURRENT MEDICINES: 1. Furosemide 40 mg. 2. Lisinopril 5 mg a day. 3. Lipitor 20 mg a day. 4. Tylenol. 5. Ativan 0.5 mg p.r.n. 6. Colace 100 mg twice a day. 7. Multivitamin once a day. 8. Aspirin 81 mg a day. 9. Senokot 1 tablet as needed 10. Magnesium oxide 400 mg twice a day. 11. Ascorbic acid 500 mg once a day. 12. Fluticasone nasal spray 1-2 sprays in each nostril as needed. 13. Calcium carbonate with Vitamin D. 14. Potassium chloride 10 mEq a day. 15. Toprol-XL 5 mg a day. 16. Zantac 150 mg every 8 hours 17. Coumadin 5 mg on Sunday and Sunday and 7.5 mg all other days. 17. Amiodarone 200 mg. 18. Saline nasal spray. 19. Vitamin C. 20. Alfuzosin 10 mg a day. SOCIAL HISTORY: A 76-year-old male. He is . Occasional alcohol intake. He does not smoke. FAMILY HISTORY: Negative for diabetes or thrombosis. REVIEW OF SYSTEMS: Significant for his aneurysm repair. Reminder of the past medical history is as above. Denies any history of blood clots. He is on Coumadin. No current chest pain or shortness of breath. No history of DVT in the past. PHYSICAL EXAMINATION: GENERAL: Reveals a pleasant, middle-aged male. He looks to be in pretty good health. HEENT: Benign. NECK: Supple. No lymphadenopathy. LUNGS: Clear to auscultation. HEART: Regular rate and rhythm. ABDOMEN: Soft, nontender, nondistended. EXTREMITIES: Grossly neurovascularly intact except as follows: Examination of the right knee reveals the patient walks with the use of a cane. He has a large knee effusion. Range of motion about 5 degrees short of full extension to about 120 degrees of flexion. He has a positive Felix testing. He has laxity to valgus stress testing. He can do a straight leg raise. There is no particular pain with hip motion. He does have some chronic stasis changes distally but no signs of cellulitis or impending ulcers. He has a well-healed, fairly long medial incision and a smaller lateral incision on the skin on the front side of his knee. X-RAYS: X-rays of the right knee reviewed. It shows advanced right knee tricompartmental DJD. He has complete loss of his joint space. He has tibial femoral subluxation. 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 He appears medically stable and would like to have his knee replaced. He has disabling pain unresponsive to conservative care. PLAN: We are going to take him to the operating room and do a right total knee replacement. The risks and benefits of this procedure were explained to the patient including but not limited to DVT, PE, , infection, neurological injury, vascular injury, bleeding problem, pain, limited range of motion, stiffness, failure to relieve symptoms, incomplete relief of symptoms, need for further surgery in the future, fracture, leg length inequality, nerve palsy, etc. The patient understands and desires to proceed. Informed consent was obtained. He will need to stop his Coumadin 5 days preoperatively. This will be managed by the Coumadin clinic. He will need a stat PT and INR the morning of surgery. He has been seen by Dr. Soria on 01/08/2017 and cleared for surgery. As far as discharge plans, he is planning to be discharged to the [facility] if possible. He does not want to go to [facility]. We did talk to him about taking his metoprolol the morning of surgery and his amiodarone certainly. He should hold the lisinopril.
[~2017-02-06] VITALS: Ht 185.4 cm; Wt 79.5 kg
[~2017-02-06 06:04] MED LIST changes: +ACETAMINOPHEN 500 MG TAB PO SCH; -ASCO500C4 PO; +BUPIVACAINE LIPOSOME 266 MG, BUPIVACAINE/EPINEPHRINE INJ 50 ML, SODIUM CHLORIDE 0.9% PF... INFIL SCH; +CEFAZOLIN 2000MG IV PUSH 10 ML IV SCH; -CEPH500C PO; +FAMOTIDINE 20 MG TAB PO SCH; +GABAPENTIN 300 MG CAP PO SCH; +LACTATED RINGER'S 1000ML 1,000 ML IV SCH; +LACTATED RINGER'S 1000ML 500 ML IV ONE; +LACTATED RINGER'S 1000ML IV SCH; -LISI-461 PO; +LSN40 PO; +METOCLOPRAMIDE HCL 10 MG TAB PO SCH; -OXYB5TAB74 PO; +SCOPOLAMINE 1.5 MG TDSY TD SCH
--- NOTE | 2017-02-06 06:27 | History & Physical Bridge Note ---
H&P Re-Evaluation Bridge Note: I have examined the patient, reviewed the History & Physical and in the interval since the performance of the History & Physical I have noted the following changes of clinical significance: No changes noted
[2017-02-06] MEDS ORDERED: AMLO2.5T PO (06:51)
[2017-02-06] MEDS ORDERED: ULT50 PO (06:51)
[2017-02-06] MEDS ORDERED: lovenox SC (06:51)
[2017-02-06] MEDS ORDERED: SRVDIN60 INH (06:52)
[2017-02-06] MEDS ORDERED: BUPIVACAINE 0.5 % 5 MG/1 ML PF 10ML VIAL ONE (07:24)
[2017-02-06] MEDS ORDERED: BUPIVACAINE 0.25% 30 ML VIAL ONE (07:24)
[2017-02-06] MEDS ORDERED: DEXAMETHASONE SOD INJ 4 MG/ML VIAL ONE (07:24)
[2017-02-06] MEDS ORDERED: EpINEphrine INJ 1MG/ML AMP 1 MG/ML AMP ONE (07:24)
[2017-02-06 07:27] LABS: INR 1.2 (0.9-1.1); PARTIAL THROMBOPLASTIN RATIO 1.1; PROTHROMBIN TIME (PATIENT) 12.3 SECONDS (9.0-12.0)
[2017-02-06] MEDS ORDERED: MIDAZOLAM HCL 1 MG/ML 2ML VIAL ONE (07:53)
[2017-02-06] MEDS ORDERED: FENTANYL CITRATE INJ 50 MCG/1 ML 2 ML VIAL ONE (07:54)
[2017-02-06] MEDS ORDERED: BUPIVACAINE/EPINEPHRINE 0.25% 1:200,000 30 ML VIAL ONE (08:51)
[2017-02-06] MEDS ORDERED: SODIUM CHLORIDE 0.9% PF 50 ML VIAL ONE (08:51)
[2017-02-06] MEDS ORDERED: BACITRACIN 50000 UNIT VIAL ONE (08:51)
[2017-02-06] MEDS ORDERED: BUPIVACAINE LIPOSOME 1/3% 266 MG/20 ML VIAL INFIL ONE (08:52)
[2017-02-06] MEDS ORDERED: VANCOMYCIN HCL 1000MG/20ML VIAL ONE (08:54)
[2017-02-06] MEDS ORDERED: ATROPINE SULFATE 0.1 MG/ML 5ML SYR IV PRN (09:15)
[2017-02-06] MEDS ORDERED: ONDANSETRON INJ 2 MG/ML 2 ML VIAL IV PRN ×2 (09:15→11:00)
[2017-02-06] MEDS ORDERED: FENTANYL CITRATE INJ 50 MCG/1 ML 2 ML VIAL IV PRN (09:15)
[2017-02-06] MEDS ORDERED: EpHEDrine SULFATE INJ 50 MG/ML AMP IV PRN (09:15)
[2017-02-06] MEDS ORDERED: TRANEXAMIC ACID INJ 1,000 MG in SYRINGE 0 ML IV SCH (09:30)
[2017-02-06] MEDS ORDERED: PROPOFOL IV EMULSION 10 MG/ML 20 ML VIAL IV ONE (09:36)
--- NOTE | 2017-02-06 10:51 | [facility] Post Operative Brief Note ---
Immediate Operative Summary Operative Date Feb 06, 2017. Pre-Operative Diagnosis Right Knee Tricompartmental Degenerative Joint Disease Post-Operative Diagnosis Right Knee Tricompartmental Degenerative Joint Disease Procedure(s) Performed Right Total Knee Arthroplasty Surgeon Dr. De Jesus Swatcher Surgeon(s) CHELLE Fletcher Estimated Blood Loss 50 cc Findings Right Knee DJD Fluids (cc crystalloids) 1500 cc Specimens A. Right Knee Bone and Tissue B. Right Knee Synovium Drains None Anesthesia Spinal Complication(s) None Disposition Recovery Room / PACU
[2017-02-06] MEDS ORDERED: FUROSEMIDE 40 MG TAB PO PRN (11:00)
[2017-02-06] MEDS ORDERED: METOCLOPRAMIDE HCL INJ 5 MG/ML 2 ML VIAL IV PRN (11:00)
[2017-02-06] MEDS ORDERED: FLUTICASONE PROPIONATE NA SPR 16 GM BTL NAE PRN (11:00)
[2017-02-06] MEDS ORDERED: SENNA 8.6 MG TAB PO PRN (11:00)
[2017-02-06] MEDS ORDERED: SODIUM CHLORIDE 0.65% NA SOLN 45 ML (OCEAN) PRN (11:00)
[2017-02-06] MEDS ORDERED: ALBUTEROL HFA 8 GM INHALER INH PRN (11:00)
[2017-02-06] MEDS ORDERED: TRIAMCINOLONE ACET 0.1% CR 15 GM TUBE EXT PRN (11:00)
[2017-02-06] MEDS ORDERED: HYDROmorphone INJ 0.5 MG/0.5 ML SYR IV PRN (11:00)
[2017-02-06] MEDS ORDERED: TAMSULOSIN HCL 0.4 MG CAP PO PRN (11:00)
[2017-02-06] MEDS ORDERED: ALUMINUM/MAGNESIUM/SIMETH (MAALOX MAX) 30 ML UDC PO PRN (11:00)
[2017-02-06] MEDS ORDERED: LORAZEPAM 0.5 MG TAB PO PRN (11:00)
[2017-02-06] MEDS ORDERED: ZOLPIDEM TARTRATE 5 MG TAB PO PRN (11:00)
[2017-02-06] MEDS ORDERED: CLOTRIMAZOLE 1% CR 15 GM TUBE EXT PRN (11:00)
[2017-02-06] MEDS ORDERED: BISACODYL 10 MG SUPP PR PRN (11:00)
[2017-02-06] MEDS ORDERED: SILVER SULFADIAZINE 1% CR 50 GM JAR EXT PRN (11:00)
[2017-02-06] MEDS ORDERED: MAGNESIUM HYDROXIDE SUSP 30 ML UDC PO PRN (11:00)
--- NOTE | 2017-02-06 11:28 | Anesthesiology Progress Note ---
Anesthesia Post Op Note Date & Time Feb 06, 2017 at 11:26 Vital Signs Pain Intensity: 0 Vital Signs Past 12 Hours Date Time Temp Pulse Resp B/P (MAP) Pulse Ox O2 Delivery O2 Flow Rate FiO2 02/06/17 11:00 36.6 49 12 156/48 100 Oxymask 10 Notes Mental Status: alert / awake / arousable, participated in evaluation Pt Amnestic to Procedure: Yes Nausea / Vomiting: adequately controlled Pain: adequately controlled Airway Patency, RR, SpO2: stable & adequate BP & HR: stable & adequate Hydration State: stable & adequate Neuraxial Anesthesia: was administered, sensory block is resolving Anesthetic Complications: no major complications apparent Small skin tear sustained to L forearm due to careful removal of tape over IV tubing in PACU. This was non bleeding, non painful, was treated with bacitracin and ointment and and light dressing.
--- NOTE | 2017-02-06 11:53 | DIAGNOSTIC IMAGING REPORT ---
TWO VIEWS RIGHT KNEE CLINICAL HISTORY: Postoperative examination. FINDINGS: AP and crosstable lateral portable views of the right knee are obtained. A right knee arthroplasty is in near anatomic alignment. There has been undersurface remodeling of the patella. No acute fracture is seen. There are expected postoperative changes around the knee including skin clips, soft tissue edema, and subcutaneous gas. There is atherosclerotic calcification of the popliteal artery. IMPRESSION: Expected postoperative changes status post right knee arthroplasty. No acute fracture is seen. Electronically signed by: Robert Hernandez M.D. 02/06/2017 11:52 AM Dictated Date/Time: 02/06/2017 11:52 AM
[2017-02-06 12:00] VITALS: BP 154/57; PULSE 47; TEMP 36.5; O2SAT 96
[2017-02-06] MEDS ORDERED: TRAMADOL HCL 50 MG TAB PO SCH (12:00)
[2017-02-06] MEDS: RANITIDINE HCL 150 MG TAB PO SCH ×2 (12:30→17:45)
[2017-02-06 12:40] VITALS: BP 166/57; PULSE 49; TEMP 36.4; O2SAT 100
[2017-02-06] MEDS: KETOROLAC TROMETHAMINE 15 MG/ML VIAL IV. SCH ×2 (12:50→17:58)
[2017-02-06] MEDS: D5W AND 1/2NSS + 20MEQ KCL 1,000 ML IV SCH ×2 (12:50→22:41)
[2017-02-06 13:00] VITALS: BP 147/55; PULSE 53; O2SAT 99
[2017-02-06] MEDS ORDERED: ENOX120I SQ (13:27)
--- NOTE | 2017-02-06 13:45 | PROGRESS NOTE ---
DATE: 02/06/2017 SUBJECTIVE: A 76-year-old gentleman postop from a right knee replacement. He is doing pretty well. Really not having much pain. No chest pain or shortness of breath. Not feeling dizzy or lightheaded. OBJECTIVE: VITAL SIGNS: Temperature 36.4. Vital signs stable. GENERAL: Physical examination reveals a pleasant elderly male. He is sitting up in bed and looks pretty comfortable. EXTREMITIES: Examination of the right leg reveals the leg to be well aligned. Dressing is clean, dry and intact. He can dorsiflex and plantarflex his foot appropriately. He is neurologically intact. X-RAYS: X-rays of the right knee from recovery room reviewed. It shows a right cemented stabilized total knee arthroplasty. Components looked to be in good position. No signs of problems. ASSESSMENT: A 76-year-old male with multiple comorbidities including significant atrial fibrillation, heart disease and a history of thoracic aneurysm, postop from a right knee replacement, doing pretty well. He is neurologically intact. Pain seems to be controlled. PLAN: 1. DVT prophylaxis including thigh-high TEDs, SCDs, and start him back on Coumadin. Will likely, maybe use some prophylactic Lovenox 24 hours postop, but I think it is too early to put him on high dose Lovenox. 2. PT/OT. Weightbear as tolerated. Right total knee protocol. 3. Pain control, doing well with current pain regimen. 4. IV antibiotics x24 hours. 5. Disposition: He is hoping to be discharged to [facility] for a brief rehab stay.
[2017-02-06 14:00] VITALS: BP 155/65; PULSE 49; O2SAT 99
[2017-02-06] MEDS: ACETAMINOPHEN 500 MG TAB PO SCH ×2 (14:26→21:06)
[2017-02-06] MEDS: CHECK SCOPOLAMINE PATCH PLACEMENT SCH (15:32)
[2017-02-06] MEDS ORDERED: WARFARIN SOD 5 MG TAB PO ONE (16:00)
[2017-02-06] MEDS ORDERED: WARFARIN SOD 10 MG TAB PO SCH (16:00)
--- NOTE | 2017-02-06 16:39 | Medical Consult ---
Consultation Date of Consultation: Feb 06, 2017. Attending Physician: Davidson De Jesus M.D. Reason for Consultation: Post Op Medical Management History of Present Illness 76 year old male who is s/p right TKA today by Dr. De Jesus. Patient has been having increasing knee pain for the past several years. He unfortunately failed outpatient conservative measures and therefore presented for the planned procedure today. Post operatively the patient is doing well. He reports his pain is well controlled. He reports some mild tingling to the BLLE. He denies chest pain and shortness of breath. No abdominal pain or nausea. He denies lightheadedness and dizziness. Palma is in place draining clear yellow urine. Past Medical/Surgical History Medical Problems: (1) Anxiety Status: Chronic (2) BPH (benign prostatic hyperplasia) Status: Chronic (3) CAD (coronary artery disease) Status: Chronic (4) COPD (chronic obstructive pulmonary disease) Status: Chronic (5) Diverticulosis Status: Chronic (6) Dyslipidemia Status: Chronic (7) GERD (gastroesophageal reflux disease) Status: Chronic (8) Neuropathy Status: Chronic (9) Paroxysmal A-fib Status: Chronic (10) TIA (transient ischemic attack) Status: Chronic Surgical Problems: (1) H/O arthroscopic knee surgery Status: Chronic (2) H/O thoracic aortic aneurysm repair Status: Chronic (3) S/P CABG x 1 Status: Chronic Family History Stroke FATHER MOTHER Social History Smoking Status: Former Smoker Alcohol Use: occasionally Allergies Coded Allergies: Guaifenesin (Verified Allergy, Unknown, GETS REALLY SICK FROM MUCINEX, 01/09/17) Home Medications Lovenox (Enoxaparin Sodium) 120 Mg/0.8 Ml Inj 120 Mg SQ DAILY last dose was on 02/04 resume on 02/07 for 3 doses Serevent Diskus (Salmeterol Xinafoate) 50 Mcg Aerp 1 Puff INH BID Tramadol HCl 50 Mg Tab 50 Mg PO Q6 PRN Norvasc (Amlodipine Besylate) 2.5 Mg Tab 2.5 Mg PO DAILY Lisinopril 40 Mg Tab 1 Tab PO QAM Lipitor (Atorvastatin Calcium) 20 Mg Tab 20 Mg PO HS Aristocort 0.1% (Triamcinolone Acet) 240 Appln/80 Gm Cr 1 Appln TOP DAILY PRN Clotrimazole Anti-Fungal (Clotrimazole (Topical)) 1 % Cre 1 Appln TOP DAILY PRN Saline Mist (Saline) 0.65 % Spr 2 Sprays NA UD PRN Tylenol (Acetaminophen) 325 Mg Tab 325 Mg PO Q4 PRN [place] Saline Nasal Gel (Aloe-Sodium Chloride) 1 Mis Mis 1 Appln TOP TID Locoid (Hydrocortisone Butyrate) 45 Appln/15 Gm Cr 1 Appln TOP DAILY PRN Mvi With Minerals (Multivitamins/Minerals) Tab 1 Tab PO NOON Potassium Chloride Cr (Potassium Chloride Microencaps) 10 Meq Tab 10 Meq PO QAM Ventolin Hfa (Albuterol) 200 Puffs/35985 Mcg Aers 2 Puffs INH Q6 PRN Docusate Sodium 100 Mg Cap 100 Mg PO BID Lasix (Furosemide) 40 Mg Tab 40 Mg PO DAILY PRN Amiodarone HCl 200 Mg Tab 200 Mg PO QAM Lorazepam 0.5 Mg Tab 0.5 Mg PO BID PRN Metoprolol Succinate ER (Metoprolol Succinate) 100 Mg Tabcr 100 Mg PO QAM Calcium 600+D3 600-400 mg-Unit (Calcium Carbonate-Cholecalcife) 1 Tab Tab 1 Tab PO QAM Alfuzosin HCl ER (Alfuzosin HCl) 10 Mg Tab 10 Mg PO HS Senokot (Senna) 8.6 Mg Tab 1 Tab PO QPM PRN Flonase Allergy Relief (Fluticasone Propionate (Nasal)) 50 Mcg/Act Spr 1-2 [place] PILI BID PRN Vitamin C (Ascorbic Acid) 500 Mg Tab 500 Mg PO QAM Miralax (Polyethylene Glycol 3350) 1 Pow Pow 1 Dose PO DAILY TAKES AT 1000 Coumadin (Warfarin Sodium) 5 Mg Tab 5 Mg PO DAILY last dose was on 01/31 to resume on 02/06 15mg, 10mg 02/07 and 02/08, then resume 5mg daily Aspirin Chewable (Aspirin) 81 Mg Chew 81 Mg PO QAM Mag-Ox (Magnesium Oxide) 400 Mg Tab 400 Mg PO BID Zantac (Ranitidine HCl) 300 Mg Tab 150 Mg PO TIDM 1/2 TABLET DOSE Current Inpatient Medications Current Inpatient Medications Medications (Trade) Dose Ordered Sig/Martine Route Start Time Stop Time Status Last Admin Dose Admin Cefazolin Sodium 10 ml @ 2.5 mls/min PREOP IV 02/06/17 06:00 02/06/17 18:00 02/06/17 09:08 2.5 MLS/MIN Acetaminophen (Tylenol Tab) 1,000 mg PREOP PO 02/06/17 06:00 02/06/17 18:00 02/06/17 07:18 1,000 MG Bupivacaine Liposome 266 mg/ Bupivacaine HCl/ Epinephrine Bitart 50 ml/ Sodium Chloride 30 ml/Syringe 100 ml @ 0 mls/hr 06 INFIL 02/06/17 06:00 02/06/17 18:00 02/06/17 09:47 100 MLS/HR Famotidine (Pepcid Tab) 20 mg PREOP PO 02/06/17 06:00 02/06/17 18:00 02/06/17 07:18 20 MG Gabapentin (Neurontin Cap) 300 mg PREOP PO 02/06/17 06:00 02/06/17 18:00 02/06/17 07:18 300 MG Metoclopramide HCl (Reglan Tab) 10 mg PREOP PO 02/06/17 06:00 02/06/17 18:00 02/06/17 07:18 10 MG Miscellaneous (Remove Transderm-Scop Patch) 1 ea Q72H N/A 02/09/17 06:00 02/09/17 06:01 Miscellaneous Information (Check Scopolamine Patch Placement) 1 ea QS N/A 02/06/17 16:00 02/09/17 05:59 02/06/17 15:32 1 EA Potassium Chloride/Dextrose/ Sod Cl 1,000 ml @ 100 mls/hr Q10H IV 02/06/17 12:30 02/07/17 10:50 02/06/17 12:50 100 MLS/HR Cefazolin Sodium 1000 mg/Syringe 5 ml @ 1.67 mls/ min Q8H IV 02/06/17 18:00 02/07/17 02:02 Ketorolac Tromethamine (Toradol Inj) 15 mg Q6 IV. 02/06/17 13:00 02/07/17 11:59 02/06/17 12:50 15 MG Acetaminophen (Tylenol Tab) 1,000 mg Q8 PO 02/06/17 14:00 03/08/17 13:59 02/06/17 14:26 1,000 MG Magnesium Hydroxide (Milk Of Magnesia Susp) 30 ml Q6H PRN PO 02/06/17 11:00 1/4/18 10:59 Bisacodyl (Dulcolax Supp) 10 mg DAILY PRN [place] 02/06/17 11:00 03/08/17 10:59 Senna (Senokot Tab) 17.2 mg HS PO 02/06/17 21:00 03/08/17 20:59 Al Hydrox/Mg Hydrox/Simethicone (Maalox Max Susp) 15 ml Q4H PRN PO 02/06/17 11:00 03/08/17 10:59 Zolpidem Tartrate (Ambien Tab) 5 mg HSZ PRN PO 02/06/17 11:00 03/08/17 10:59 Ondansetron HCl (Zofran Inj) 4 mg Q6H PRN IV 02/06/17 11:00 03/08/17 10:59 Metoclopramide HCl (Reglan Inj) 10 mg Q6H PRN IV 02/06/17 11:00 03/08/17 10:59 Ferrous Gluconate (Ferrous Gluconate Tab) 324 mg TIDM PO 02/06/17 17:45 03/08/17 17:44 Pantoprazole Sodium (Protonix Tab) 40 mg QAM PO 02/07/17 09:00 03/09/17 08:59 Silver Sulfadiazine (Silvadene 1% Crm 50GM Jar) 1 appln BID PRN EXT 02/06/17 11:00 03/08/17 10:59 Tamsulosin HCl (Flomax Cap) 0.4 mg QAM PRN PO 02/06/17 11:00 03/08/17 10:59 Tramadol HCl (Ultram Tab) 1 tablet for pain rating... Q4H PRN PO 02/06/17 11:00 03/08/17 10:59 Albuterol (Ventolin Hfa Inhaler) 2 puffs Q6 PRN INH 02/06/17 11:00 03/08/17 10:59 Alfuzosin HCl (Uroxatral Tab) 10 mg HS PO 02/06/17 21:00 03/08/17 20:59 Amiodarone HCl (Cordarone Tab) 200 mg QAM PO 02/07/17 09:00 03/09/17 08:59 Amlodipine Besylate (Norvasc Tab) 2.5 mg DAILY PO 02/07/17 09:00 03/09/17 08:59 Aspirin (Aspirin Chew) 81 mg QAM PO 02/07/17 09:00 03/09/17 08:59 Atorvastatin Calcium (Lipitor Tab) 20 mg HS PO 02/06/17 21:00 03/08/17 20:59 Clotrimazole (Lotrimin 1% Crm) 1 appln DAILY PRN EXT 02/06/17 11:00 03/08/17 10:59 Docusate Sodium (coLACE CAP) 100 mg BID PO 02/06/17 21:00 03/08/17 20:59 Fluticasone Propionate (Flonase Nasal [place]) 2 sprays BID PRN PILI 02/06/17 11:00 03/08/17 10:59 Furosemide (Lasix Tab) 40 mg DAILY PRN PO 02/06/17 11:00 03/08/17 10:59 Lisinopril (Zestril Tab) 40 mg QAM PO 02/07/17 09:00 03/09/17 08:59 Lorazepam (Ativan Tab) 0.5 mg BID PRN PO 02/06/17 11:00 03/08/17 10:59 Magnesium Oxide (Mag-Ox Tab) 400 mg BID PO 02/06/17 21:00 03/08/17 20:59 Multivitamins/ Minerals (Multivitamin W/ Minerals Tab) 1 tab DAILY PO 02/07/17 09:00 03/09/17 08:59 Polyethylene (Miralax Powder Packet) 17 gm DAILY PO 02/07/17 09:00 03/09/17 08:59 Potassium Chloride (Klor-Con M10) 10 meq QAM PO 02/07/17 09:00 03/09/17 08:59 Sodium Chloride ([place] Nasal [place]) 2 sprays UD PRN NA 02/06/17 11:00 03/08/17 10:59 Salmeterol Xinafoate (Serevent Diskus Inh) 2 puffs BID INH 02/06/17 21:00 03/08/17 20:59 Triamcinolone Acetonide (Kenalog 0.1% Cream) 1 appln DAILY PRN EXT 02/06/17 11:00 03/08/17 10:59 Miscellaneous Information (Order Awaiting Action) 1 ea QS N/A 02/06/17 16:00 03/08/17 15:59 Ascorbic Acid (Vitamin C Tab) 500 mg QAM PO 02/07/17 09:00 03/09/17 08:59 Calcium/Vitamin D (Caltrate Plus Tab) 1 tab QAM PO 02/07/17 09:00 03/09/17 08:59 Miscellaneous Information (Order Awaiting Action) 1 ea QS N/A 02/06/17 16:00 03/08/17 15:59 Metoprolol Succinate (Toprol Xl Tab) 100 mg QAM PO 02/07/17 09:00 03/09/17 08:59 Ranitidine HCl (zANTac TAB) 150 mg TIDM PO 02/06/17 12:30 03/08/17 12:29 Hydromorphone HCl (Dilaudid Inj) 0.5 mg Q1H PRN IV 02/06/17 11:00 02/20/17 10:59 Warfarin Sodium (Coumadin Tab) 10 mg 1600 PO 02/07/17 16:00 02/07/17 18:00 Warfarin Sodium (Coumadin Tab) 5 mg DAILY@16 PO 02/08/17 16:00 03/10/17 15:59 Review of Systems Constitutional- no fever; no weight loss Eyes- no acute visual changes ENT- no sinus drainage; no pharyngitis Pulmonary- no cough, no wheezing, no shortness of breath Cardiac- no chest pain, no palpitations, no orthopnea, no dependent edema GI- no nausea, no vomiting, no diarrhea, no melena, no hematochezia - no dysuria, no hematuria Musculoskeletal- (+) NOTED ABOVE Derm- no rashes, no new skin lesions, no changing skin lesions Hematologic- no unusual bruising, no unusual bleeding Lymphatics- no adenopathy Endocrine- no polyuria or polydipsia; no heat or cold intolerance Neuro- no headaches, no focal neurologic symptoms Psych- no anxiety, no depression Physical Exam Date Time Temp Pulse Resp B/P (MAP) Pulse Ox O2 Delivery O2 Flow Rate FiO2 02/06/17 14:00 49 15 155/65 (95) 99 02/06/17 13:00 53 16 147/55 (85) 99 02/06/17 12:40 36.4 49 16 166/57 (93) 100 Nasal Cannula 2.0 02/06/17 12:00 36.5 47 16 154/57 (89) 96 Nasal Cannula 2.0 02/06/17 12:00 96 Nasal Cannula 2.0 02/06/17 12:00 Nasal Cannula 2.0 02/06/17 11:52 49 16 02/06/17 11:52 48 16 99 02/06/17 11:51 138/60 02/06/17 11:47 51 16 96 02/06/17 11:47 51 16 02/06/17 11:46 50 16 156/57 98 02/06/17 11:46 50 16 02/06/17 11:41 47 16 02/06/17 11:41 47 16 153/58 99 02/06/17 11:39 36.6 02/06/17 11:36 49 15 164/57 99 02/06/17 11:36 49 15 02/06/17 11:35 50 15 99 02/06/17 11:35 50 15 02/06/17 11:31 138/52 02/06/17 11:30 49 14 99 02/06/17 11:30 49 14 02/06/17 11:26 147/60 02/06/17 11:25 51 16 100 02/06/17 11:25 51 16 02/06/17 11:21 157/52 02/06/17 11:20 49 16 100 02/06/17 11:20 49 16 02/06/17 11:16 150/59 02/06/17 11:15 49 12 100 02/06/17 11:15 49 12 02/06/17 11:11 155/58 02/06/17 11:10 50 14 02/06/17 11:10 50 14 100 02/06/17 11:06 146/55 02/06/17 11:05 51 16 100 02/06/17 11:05 50 16 02/06/17 11:01 156/48 02/06/17 11:00 50 16 100 02/06/17 11:00 50 16 02/06/17 11:00 36.6 49 12 156/48 100 Oxymask 10 General Appearance: WD/WN, no apparent distress Head: normocephalic, atraumatic Eyes: normal inspection, EOMI, sclerae normal ENT: hearing grossly normal, + pertinent finding (mucous membranes moist) Neck: supple, no JVD, trachea midline Respiratory/Chest: lungs clear, normal breath sounds, no respiratory distress Cardiovascular: regular rate, rhythm, no edema, normal peripheral pulses Abdomen/GI: normal bowel sounds, non tender, soft, no organomegaly Genitourinary - Male: + pertinent finding (palma in place draining clear yellow urine) Extremities/Musculoskelatal: + pertinent finding (s/p right knee surgery, surgical dressing intact, CSM checks intact to RLE) Neurologic/Psych: no motor/sensory deficits, alert, normal mood/affect, oriented x 3 Skin: normal color, warm/dry Laboratory Results Last 24 Hours Test 02/06/17 07:02 Prothrombin Time 12.3 SECONDS Prothromb Time International Ratio 1.2 Activated Partial Thromboplast Time 29.1 SECONDS Partial Thromboplastin Ratio 1.1 Assessment & Plan S/P RIGHT TKA - POD#0 - activity and wound care orders as per ortho - pain control with bowel regimen - PT/OT - monitor H/H for acute blood loss anemia and transfuse blood products PRN PAROXYSMAL A. FIB - heart auscultates regular on exam - rhythm controlled on amiodarone and rate controlled on metoprolol - anticoagulated on Coumadin - completed Lovenox bridge pre op - Coumadin ordered by ortho however holding on Lovenox bridge for now until hemostasis achieved and ok with ortho - per coag clinic - Coumadin 15mg today, then 10mg x 2 days, then 5mg daily CAD - stable, no reports of chest pain - continue ASA, beta [place], and statin HTN - BP controlled, continue metoprolol, lisinopril, and amlodipine COPD - stable, no signs of acute exacerbation - continue home inhalers DVT PROPHYLAXIS - Coumadin resumed today; SCDs until INR > 2.0 ATTENDING ADDENDUM care coordinated with DELFINA Shaikh please refer to her notes for full details, I agree with her notes patient seen and examined, records reviewed by myself as well on exam, patient seen resting in bed, just came from the bathroom alert, oriented states he feels ok overall has some pain on the right leg, controlled with pain meds no other symptoms VS noted and reviewed orientedx 3, not in distress, speaks in sentences with no effort nor accessory muscle use normal rate, regular rhythm, no murmurs clear breath sounds bilaterally non distended, soft, nontender right leg with surgical dressing in place no neuro deficits INR 1.2 ASSESSMENT/PLAN> 76 male with CAD, A fib on coumadin, HTN, now s/p Right Total Knee Arthroplasty s/p R KNEE ARTHROPLASTY - monitor HR otherwise stable overall A FIB ON COUMADIN - per coumadin clinic, patient needs to be bridged with Lovenox when coumadin is resumed - on Amiodarone, Metoprolol History of CAD - no cardiac symptoms continue ASA, Statin other diagnoses and plan of care as per DELFINA Shaikh's notes Josué Singh MD Thank you for this consultation. We will follow the patient with you during their hospital stay. You can reach a member of the [facility]ist Team 25/09 via pager @ [phone].
[2017-02-06] MEDS: FERROUS GLUCONATE 324 MG TAB PO SCH (17:56)
[2017-02-06] MEDS: CEFAZOLIN IV 1,000 MG in SYRINGE 0 ML IV SCH (18:00)
[2017-02-06] MEDS ORDERED: DOCUSATE SODIUM 100 MG CAP PO SCH (21:00)
[2017-02-06] MEDS: SALMETEROL XINAFOATE 50MCG 28 BLISTER INH INH SCH (21:02)
[2017-02-06] MEDS: DOCUSATE SODIUM 100 MG CAP PO SCH (21:04)
[2017-02-06] MEDS: ATORVASTATIN 20 MG TAB PO SCH (21:04)
[2017-02-06] MEDS: MAGNESIUM OXIDE 400 MG TAB PO SCH (21:04)
[2017-02-06] MEDS: SENNA 8.6 MG TAB PO SCH (21:05)
[2017-02-06] MEDS: ALFUZosin TAB 10 MG TAB PO SCH (21:05)
--- NOTE | 2017-02-06 22:47 | OPERATIVE REPORT ---
DATE OF OPERATION: 02/06/2017 SURGEON: Dr. Davidson De Jesus. PLANT ASSOCIATE: CHELLE Cowan. PREOPERATIVE DIAGNOSIS: Right knee degenerative joint disease. POSTOPERATIVE DIAGNOSIS: Same. PROCEDURE PERFORMED: 1. Right cemented posterior stabilized total knee arthroplasty. 2. Extensive right knee synovectomy. COMPLICATION: None. ESTIMATED BLOOD LOSS: 50 mL FLUID REPLACEMENT: 1500 mL crystalloid fluid replacement. TOURNIQUET TIME: 59 minutes at 300 mmHg. ANESTHESIA: Spinal with adductor canal block. DRAINS: None. SPECIMENS: 1. Right knee sent for pathology. 2. Right knee synovium sent for pathology. OPERATIVE INDICATIONS: The patient is a 76-year-old fairly independent elderly male who has been bothered by right knee pain for many years. He had a large open anterior knee surgery 30+ years ago and has become more debilitated by knee pain, discomfort and instability. We had actually scheduled for knee replacement about 6 or 7 years ago but he had to cancel due to medical issues. Over the years, his pain has become more debilitating. He actually has trouble even getting around and walking. He has failed conservative treatment. He has gone through some medical procedures to correct his thoracic aneurysm as well as stenting of his coronary artery disease and now would like to proceed with knee replacement. The patient does have a history of some chronic stasis changes which have been relatively well controlled recently. I explained to him the importance of swelling control and the risks associated with this and he is aware and would like to proceed. OPERATIVE FINDINGS: Operative findings revealed advanced right knee DJD. Extensive grade 4 changes in all 3 compartments. He had chronic ACL tear. He had extensive synovitis throughout his knee. OPERATIVE IMPLANTS: Operative implants consisted of: 1. Biomet Vanguard size 70 right posterior stabilized femoral component. 2. Biomet size 79 tibial tray. 3. A 10 mm posterior stabilized plus polyethylene insert. 4. A 34 x 8.5 all poly patella. OPERATIVE PROCEDURE: The patient was taken to the operating room, identified and placed on the operating room table in supine position. All contact areas were appropriately padded. IV antibiotics were provided by anesthesia team. A spinal anesthetic and adductor canal block had been provided in the holding area. Byrd catheter was placed in sterile fashion. The right thigh tourniquet was then placed and the right lower extremity was then prepped and draped in usual sterile fashion. The right leg was elevated and exsanguinated with Esmarch and tourniquet was placed at 300 mmHg. An anterior approach to the right knee was then performed through a longitudinal incision centered over the patella. We did not use this previous incision as it was far medial. Sharp dissection was carried out through the subcutaneous tissue down to the level of the extensor mechanism. I tried to minimize stripping to limit swelling. A medial parapatellar arthrotomy incision was made. Some subperiosteal dissection was carried out medially. I did have to do a pretty extensive medial dissection due to the tightness on this side of the knee with scarring to the tibia. The fat pad was resected from beneath the patellar tendon. The lateral patellofemoral ligament was released. I then brought the knee out into extension. I did an extensive synovectomy of the suprapatellar pouch and medial and lateral gutters and sent for pathology. The knee was then flexed. The osteophytes were taken off the distal femur. The PCL was released from the distal femur. The ACL was chronically absent. The tibia was subluxated anteriorly. The external tibial alignment jig was then placed on the anterior face of the tibia and adjusted 14 mm medially. Proximal tibial cut was made to take a couple millimeters off the medial side. The tibia was then sized to a size 79. Some osteophytes were taken off medial and posteromedially. Attention was then drawn to the distal femur. Distal femur was entered with a sharp drill bit, intramedullary canal was suctioned. A right 6-degree valgus cutting guide was placed. Distal femoral cutting block was pinned in place. Distal femoral cut was made to take an additional 3 mm of bone off the distal femur. The femur was then sized to a size 70. The AP cutting block was pinned parallel to the epicondylar axis which was 3 degrees of external rotation. The anterior cut, anterior chamfer, posterior cut, posterior chamfer cuts were made. Box cutting guide was placed and adjusted slightly lateral and the box cut was made. The knee was flexed. The remnants of the medial and lateral menisci were excised. The osteophytes were taken off the posterior aspect of the femur. A trial femoral component was placed. The tibial tray was pinned in maximum external rotation and the drill and stem punch were used to create defect in the proximal tibia for the tibial tray. The knee was then trialed and a 10 mm insert fit most appropriately. He still had a little bit of medial lateral laxity due to this chronic MCL issue from his previous surgery, and therefore, I elected to place the PS plus insert. Attention was then drawn to the patella. The patella was cleaned of all soft tissues. Patella thickness measured 25 mm and cut down to 15. It was sized to a size 34 patella. Lug holes were drilled for a 34 patella. The lateral osteophyte was removed. Patella button was placed. Knee was taken through range of motion and patella tracked nicely with no thumbs test. Attention was then drawn toward placement of permanent components. All trial components were removed. A bone plug was placed in the distal femur to limit blood loss. A double batch of [place] G cement was mixed. I did add an additional gram of vancomycin due to his multiple comorbidities and pretty extensive open surgery in the past. A size 70 right posterior stabilized femoral component, size 79 tibial tray, a 10 mm posterior stabilized polyethylene plus insert was placed, followed by a 34 x 8.5 all poly patella. The knee was brought out into full extension until cement hardened. A final cement check was then performed. Pericapsular tissues were injected with a total of 100 mL of a combination of 20 mL of Exparel, 30 mL of normal saline, 50 mL of 0.25% Marcaine with epinephrine. The patient did receive 1 gram of tranexamic acid. The tourniquet was then let down for a final tourniquet time of 59 minutes. Hemostasis was assured with use of electrocautery. Extensor mechanism was then closed with a combination of #1 PDS suture and #1 Vicryl suture in a [id number] fashion. Extensor mechanism was checked and found to be intact. The subcutaneous tissues were then closed with 2-0 Dexon suture in a buried interrupted fashion, skin was closed with skin katharine. Leg was then cleaned and dried and a sterile dressing of Xeroform, 4 x 4's, sterile cast padding and Jim bandage was applied. The patient was then transferred to the recovery room in stable condition. The patient tolerated the procedure well with no complications. All needle and sponge counts were correct at the end of the operation. I attest to the content of the Intraoperative Record and any orders documented therein. Any exception s are noted below.
[2017-02-06 22:48] VITALS: BP 129/51; PULSE 49; TEMP 36.9; O2SAT 96
[2017-02-07] VITALS (9 sets, daily range): BP systolic 86–133; BP diastolic 33–48; PULSE 48–67; TEMP 36.6–37; O2SAT 92–97
[2017-02-07] MEDS: CEFAZOLIN IV 1,000 MG in SYRINGE 0 ML IV SCH (00:53)
[2017-02-07] MEDS: KETOROLAC TROMETHAMINE 15 MG/ML VIAL IV. SCH ×2 (00:53→06:13)
[2017-02-07] MEDS: ACETAMINOPHEN 500 MG TAB PO SCH ×3 (06:13→21:51)
[2017-02-07] MEDS ORDERED: SODIUM CHLORIDE 0.9% 500ML 500 ML IV ONE ×2 (07:00→12:00)
[2017-02-07 07:20] LABS: HEMATOCRIT 27.6 % (42-52); MEAN CELL VOLUME 93.6 fL (80-100); MEAN CORPUSCULAR HEMOGLOBIN 31.9 pg (25-34); MEAN CORPUSCULAR HGB CONC 34.1 g/dl (32-36); MEAN PLATELET VOLUME 9.7 fL (7.4-10.4); PLATELET COUNT 119 K/uL (130-400); RED BLOOD COUNT 2.95 M/uL (4.7-6.1); WHITE BLOOD COUNT 11.29 K/uL (4.8-10.8)
[2017-02-07 07:26] LABS: INR 1.3 (0.9-1.1); PROTHROMBIN TIME (PATIENT) 13.4 SECONDS (9.0-12.0)
[2017-02-07 07:53] LABS: BUN/CREATININE RATIO 17.7 (10-20); CALCIUM 7.8 mg/dl (8.5-10.1); CREATININE 1.32 mg/dl (0.60-1.40); POTASSIUM 4.4 mmol/L (3.5-5.1)
[2017-02-07] MEDS: CHECK SCOPOLAMINE PATCH PLACEMENT SCH ×2 (08:10)
[2017-02-07] MEDS: D5W AND 1/2NSS + 20MEQ KCL 1,000 ML IV SCH (08:30)
[2017-02-07] MEDS ORDERED: LISINOPRIL 40 MG TAB PO SCH (09:00)
[2017-02-07] MEDS ORDERED: METOPROLOL SUCC 50MG EXT REL TAB PO SCH (09:00)
[2017-02-07] MEDS ORDERED: MULTIVITAMIN TAB PO SCH (09:00)
[2017-02-07] MEDS: AMLODIPINE BESYLATE 5 MG TAB PO SCH (09:00)
[2017-02-07] MEDS: SALMETEROL XINAFOATE 50MCG 28 BLISTER INH INH SCH ×2 (09:06→20:48)
[2017-02-07] MEDS: ASCORBIC ACID 500 MG TAB PO SCH (09:07)
[2017-02-07] MEDS: RANITIDINE HCL 150 MG TAB PO SCH ×3 (09:08→19:37)
[2017-02-07] MEDS: ASPIRIN 81 MG CHEW PO SCH (09:08)
[2017-02-07] MEDS: CALCIUM 600MG + VIT D 400 IU TAB PO SCH (09:09)
[2017-02-07] MEDS: FERROUS GLUCONATE 324 MG TAB PO SCH ×3 (09:10→19:37)
[2017-02-07] MEDS: CEROVITE ADV FORMULA TAB PO SCH (09:10)
[2017-02-07] MEDS: DOCUSATE SODIUM 100 MG CAP PO SCH ×2 (09:10→20:48)
[2017-02-07] MEDS: PANTOprazole SOD 40 MG TAB PO SCH (09:11)
[2017-02-07] MEDS: POLYETHYLENE (MIRALAX) 17 GM PACK PO SCH (09:11)
[2017-02-07] MEDS: POTASSIUM CHLORIDE 10 MEQ TABCR PO SCH (09:11)
[2017-02-07] MEDS: MAGNESIUM OXIDE 400 MG TAB PO SCH ×2 (09:11→20:48)
[2017-02-07] MEDS ORDERED: NURSING VERBAL MED ORDER ONE ×2 (11:30→15:00)
[2017-02-07] MEDS: AMIODARONE 200 MG TAB PO SCH (11:32)
--- NOTE | 2017-02-07 12:11 | Clinical Documentation Query ---
CLINICAL DOCUMENTATION QUERY 76-y/o male who has undergone right cemented TKR. Patient takes Lasix at home. In your clinical opinion is this patient being managed for: ( ) Chronic diastolic (preserved EF) CHF treated with continued PO Lasix and antihypertensives. ( ) Not Agree ( ) Other explanation of clinical findings (Please Explain) ( ) Unable to determine (Please Define) ( ) Need to Discuss The medical record reflects the following clinical findings, treatment, and risk factors. Clinical Indicators: As above. Echo from 05/14/15 showed EF of 60-65%, Grade I diastolic dysfunction, concentric LV hypertrophy Treatment: Lasix, Lisinopril, Norvasc, IM consult Risk Factors: HTN, Afib, CAD, Please clarify and document your clinical opinion in the progress notes and discharge summary. Terms such as "probable", "suspected", "likely", "questionable", "possible", or "still to be ruled out" are acceptable. IF IN AGREEMENT, YOU MUST DOCUMENT ABOVE DIAGNOSTIC STATEMENT IN DAILY PROGRESS NOTES AND DISCHARGE SUMMARY. This document is not part of the patient's record. Thank You, Kennedy Moreno, RICH [phone]
--- NOTE | 2017-02-07 13:27 | PROGRESS NOTE ---
DATE: 02/07/2017 DATE: 02/07/2017 SUBJECTIVE: A 76-year-old gentleman postop day 1 from right knee replacement. He is doing pretty well. Pain is controlled. He is a little bit worried about his blood pressure. Denies any chest pain or shortness of breath. Not feeling dizzy or lightheaded. OBJECTIVE: VITAL SIGNS: Temperature is 36.6. Vital signs stable. PHYSICAL EXAMINATION: GENERAL: Reveals a pleasant, middle-aged male. He is sitting up in bed and quite conversant today. He looks pretty comfortable. EXTREMITIES: Examination of the right leg reveals the leg to be well aligned. There is a little bit of bloody drainage on the front of his dressing. He can dorsiflex and plantarflex his foot appropriately. He is neurologically intact. LABORATORY DATA: Hemoglobin 9.4. Hematocrit 27.6. White cell count 11.29. Electrolytes are stable. INR 1.3. ASSESSMENT: A 76-year-old gentleman postop day 1 from a right knee replacement, doing well. History of underlying cardiac issues as well as thoracic aortic aneurysm, but really looks stable and doing well. PLAN: 1. DVT prophylaxis including thigh-high TEDs, SCDs, and Coumadin. The goal will be to keep his INR between 2 and 3. I would be okay with prophylactic dose Lovenox, but I think it is too much to give him full dose Lovenox at this point. 2. PT/OT. He can weightbear as tolerated. Right total knee protocol. 3. Pain control. Doing pretty well with current pain regimen. 4. Disposition. He is hoping to be discharged to the [facility]. vp client services is working on making those arrangements.
--- NOTE | 2017-02-07 14:20 | Anesthesiology Progress Note ---
Anesthesia Post Op Note Date & Time Feb 07, 2017 at 14:19 Vital Signs Vital Signs Past 12 Hours Date Time Temp Pulse Resp B/P (MAP) Pulse Ox O2 Delivery O2 Flow Rate FiO2 02/07/17 12:35 52 91/45 (60) 02/07/17 11:09 50 89/35 (53) 02/07/17 11:00 52 16 86/33 (50) 94 Room Air 02/07/17 08:29 52 19 120/35 (63) 94 Room Air 02/07/17 07:50 Room Air 02/07/17 07:07 36.6 49 19 128/48 (74) 97 Room Air 02/07/17 02:38 36.9 48 20 133/45 (74) 95 Room Air Notes Mental Status: alert / awake / arousable, participated in evaluation Pt Amnestic to Procedure: Yes Nausea / Vomiting: adequately controlled Pain: adequately controlled Airway Patency, RR, SpO2: stable & adequate BP & HR: stable & adequate Hydration State: stable & adequate Neuraxial Anesthesia: was administered, sensory block resolved Anesthetic Complications: no major complications apparent
[2017-02-07] MEDS ORDERED: WARFARIN SOD 5 MG TAB PO SCH (16:00)
[2017-02-07] MEDS ORDERED: SODIUM CHLORIDE 0.9% 500ML 500 ML IV SCH (18:45)
--- NOTE | 2017-02-07 18:57 | Progress Note ---
Medicine Progress Note Date & Time of Visit: Feb 07, 2017 at 18:46. Subjective Pt was seen and examined Lying in bed comfortable watching soccer with no distress Pt said that he felt a little dizzy early when his BP dropped Denies any chest pain, palpitation and SOB Objective Last 8 Hrs Date Time Temp Pulse Resp B/P (MAP) Pulse Ox O2 Delivery O2 Flow Rate FiO2 02/07/17 15:30 Room Air 02/07/17 15:07 37.0 54 20 96/36 (56) 94 Room Air 02/07/17 12:35 52 91/45 (60) 02/07/17 11:09 50 89/35 (53) 02/07/17 11:00 52 16 86/33 (50) 94 Room Air Physical Exam: General- No acute distress Head- atraumatic Eyes- PERRL, EOMI ENT- oropharynx clear Neck- supple, no JVD Lungs- No wheezing Heart- regular rhythm Abdomen- normal bowel sounds, soft Extremities- no pretibial edema Neuro- alert, oriented x 3; PERRL, EOMI Skin- warm & dry Laboratory Results: Last 24 Hours Test 02/07/17 07:01 White Blood Count 11.29 K/uL Red Blood Count 2.95 M/uL Hemoglobin 9.4 g/dL Hematocrit 27.6 % Mean Corpuscular Volume 93.6 fL Mean Corpuscular Hemoglobin 31.9 pg Mean Corpuscular Hemoglobin Concent 34.1 g/dl RDW Standard Deviation 45.9 fL RDW Coefficient of Variation 13.3 % Platelet Count 119 K/uL Mean Platelet Volume 9.7 fL Prothrombin Time 13.4 SECONDS Prothromb Time International Ratio 1.3 Sodium Level 132 mmol/L Potassium Level 4.4 mmol/L Chloride Level 101 mmol/L Carbon Dioxide Level 25 mmol/L Anion Gap 6.0 mmol/L Blood Urea Nitrogen 23 mg/dl Creatinine 1.32 mg/dl Est Creatinine Clear Calc Drug Dose 53.5 ml/min Estimated GFR () 60.3 Estimated GFR (Non- 52.0 BUN/Creatinine Ratio 17.7 Random Glucose 107 mg/dl Calcium Level 7.8 mg/dl Assessment & Plan S/P RIGHT TKA POD#[address] De Jesus Continue pain control Incentive spirometry PT/OT monitor H/H PAROXYSMAL A. FIB Has been bradycardia on amiodarone metoprolol held today because of low BP Coumdin resumed Will start on low dose Lovenox for now, once bleeding stable can get full dose lovenox CAD Continue ASA, beta carrington, and statin Stable HYPOTENSION BP has been low hold metoprolol, lisinopril, and amlodipine Staring on gentle IVF [id number] COPD continue home inhalers stable DVT PROPHYLAXIS - Coumadin resumed INR 1.3 starting on low dose Lovenox for now Current Inpatient Medications: Current Inpatient Medications Medications (Trade) Dose Ordered Sig/Martine Route Start Time Stop Time Status Last Admin Dose Admin Acetaminophen (Tylenol Tab) 1,000 mg Q8 PO 02/06/17 14:00 03/08/17 13:59 02/07/17 13:50 1,000 MG Magnesium Hydroxide (Milk Of Magnesia Susp) 30 ml Q6H PRN PO 02/06/17 11:00 03/08/17 10:59 Bisacodyl (Dulcolax Supp) 10 mg DAILY PRN WA 02/06/17 11:00 03/08/17 10:59 Senna (Senokot Tab) 17.2 mg HS PO 02/06/17 21:00 03/08/17 20:59 02/06/17 21:05 17.2 MG Al Hydrox/Mg Hydrox/Simethicone (Maalox Max Susp) 15 ml Q4H PRN PO 02/06/17 11:00 03/08/17 10:59 Zolpidem Tartrate (Ambien Tab) 5 mg HSZ PRN PO 02/06/17 11:00 03/08/17 10:59 Ondansetron HCl (Zofran Inj) 4 mg Q6H PRN IV 02/06/17 11:00 03/08/17 10:59 Metoclopramide HCl (Reglan Inj) 10 mg Q6H PRN IV 02/06/17 11:00 03/08/17 10:59 Ferrous Gluconate (Ferrous Gluconate Tab) 324 mg TIDM PO 02/06/17 17:45 03/08/17 17:44 02/07/17 12:27 324 MG Pantoprazole Sodium (Protonix Tab) 40 mg QAM PO 02/07/17 09:00 03/09/17 08:59 02/07/17 09:11 40 MG Silver Sulfadiazine (Silvadene 1% Crm 50GM Jar) 1 appln BID PRN EXT 02/06/17 11:00 03/08/17 10:59 Tamsulosin HCl (Flomax Cap) 0.4 mg QAM PRN PO 02/06/17 11:00 03/08/17 10:59 Tramadol HCl (Ultram Tab) 1 tablet for pain rating... Q4H PRN PO 02/06/17 11:00 03/08/17 10:59 Albuterol (Ventolin Hfa Inhaler) 2 puffs Q6 PRN INH 02/06/17 11:00 03/08/17 10:59 Alfuzosin HCl (Uroxatral Tab) 10 mg HS PO 02/06/17 21:00 03/08/17 20:59 02/06/17 21:05 10 MG Amiodarone HCl (Cordarone Tab) 200 mg QAM PO 02/07/17 09:00 03/09/17 08:59 02/07/17 11:32 200 MG Amlodipine Besylate (Norvasc Tab) 2.5 mg DAILY PO 02/07/17 09:00 03/09/17 08:59 Aspirin (Aspirin Chew) 81 mg QAM PO 02/07/17 09:00 03/09/17 08:59 02/07/17 09:08 81 MG Atorvastatin Calcium (Lipitor Tab) 20 mg HS PO 02/06/17 21:00 03/08/17 20:59 02/06/17 21:04 20 MG Clotrimazole (Lotrimin 1% Crm) 1 appln DAILY PRN EXT 02/06/17 11:00 03/08/17 10:59 Docusate Sodium (coLACE CAP) 100 mg BID PO 02/06/17 21:00 03/08/17 20:59 02/07/17 09:10 100 MG Fluticasone Propionate (Flonase Nasal [place]) 2 sprays BID PRN PILI 02/06/17 11:00 03/08/17 10:59 Furosemide (Lasix Tab) 40 mg DAILY PRN PO 02/06/17 11:00 03/08/17 10:59 Lisinopril (Zestril Tab) 40 mg QAM PO 02/07/17 09:00 03/09/17 08:59 Lorazepam (Ativan Tab) 0.5 mg BID PRN PO 02/06/17 11:00 03/08/17 10:59 02/07/17 06:12 0.5 MG Magnesium Oxide (Mag-Ox Tab) 400 mg BID PO 02/06/17 21:00 03/08/17 20:59 02/07/17 09:11 400 MG Multivitamins/ Minerals (Multivitamin W/ Minerals Tab) 1 tab DAILY PO 02/07/17 09:00 03/09/17 08:59 02/07/17 09:10 1 TAB Polyethylene (Miralax Powder Packet) 17 gm DAILY PO 02/07/17 09:00 03/09/17 08:59 02/07/17 09:11 17 GM Potassium Chloride (Klor-Con M10) 10 meq QAM PO 02/07/17 09:00 03/09/17 08:59 02/07/17 09:11 10 MEQ Sodium Chloride (Bullard Nasal [place]) 2 sprays UD PRN NA 02/06/17 11:00 03/08/17 10:59 Salmeterol Xinafoate (Serevent Diskus Inh) 2 puffs BID INH 02/06/17 21:00 03/08/17 20:59 02/07/17 09:06 2 PUFFS Triamcinolone Acetonide (Kenalog 0.1% Cream) 1 appln DAILY PRN EXT 02/06/17 11:00 03/08/17 10:59 Miscellaneous Information (Order Awaiting Action) 1 ea QS N/A 02/06/17 16:00 03/08/17 15:59 Ascorbic Acid (Vitamin C Tab) 500 mg QAM PO 02/07/17 09:00 03/09/17 08:59 02/07/17 09:07 500 MG Calcium/Vitamin D (Caltrate Plus Tab) 1 tab QAM PO 02/07/17 09:00 03/09/17 08:59 02/07/17 09:09 1 TAB Miscellaneous Information (Order Awaiting Action) 1 ea QS N/A 02/06/17 16:00 03/08/17 15:59 Metoprolol Succinate (Toprol Xl Tab) 100 mg QAM PO 02/07/17 09:00 03/09/17 08:59 Ranitidine HCl (zANTac TAB) 150 mg TIDM PO 02/06/17 12:30 03/08/17 12:29 02/07/17 12:27 150 MG Hydromorphone HCl (Dilaudid Inj) 0.5 mg Q1H PRN IV 02/06/17 11:00 02/20/17 10:59 Warfarin Sodium (Coumadin Tab) 5 mg DAILY@16 PO 02/08/17 16:00 03/10/17 15:59
[2017-02-07] MEDS: ATORVASTATIN 20 MG TAB PO SCH (20:48)
[2017-02-07] MEDS: ALFUZosin TAB 10 MG TAB PO SCH (20:49)
[2017-02-07] MEDS: SENNA 8.6 MG TAB PO SCH (20:49)
[2017-02-07] MEDS ORDERED: ACET-24 PO (21:29)
[2017-02-07] MEDS ORDERED: FRRG PO (21:29)
[2017-02-07] MEDS ORDERED: ULT50X PO (21:29)
--- NOTE | 2017-02-07 21:32 | Discharge Instructions ---
Discharge Instructions Date of Service Feb 07, 2017. Admission Reason for Admission: Right Knee Degenerative Joint Disease Discharge Discharge Diagnosis / Problem: Right Knee Replacement Discharge Goals Goal(s): Decrease discomfort, Improve function, Increase independence, Improve disease control, Therapeutic intervention Activity Recommendations Activity Limitations: per Instructions/Follow-up section Weightbearing Status: Right weightbearing . Instructions / Follow-Up Instructions / Follow-Up ACTIVITY RECOMMENDATIONS: Physical Therapy: * You will go to physical therapy three times each week for four to six weeks after your surgery in order to regain your knee range of motion and to retrain your knee to work properly. * It is just as important to make sure you are getting your knee perfectly straight as it is to regain your knee bend. * Taking a pain pill an hour before therapy can help you have a more productive and comfortable therapy session. Home Exercise: * You were shown a series of exercises (heel props, heel slides, etc.) in the hospital. Do these exercises three to four times each day including the exercises you were shown in physical therapy. Walking: * Get up and walk several times each day. For the first four weeks, try not to stand or walk for more than one hour at a time. If you do stand or walk for more than one hour, you will not hurt anything, but your knee and leg will likely swell. * As you feel comfortable, you may change from the walker or crutches to a cane and then to independent walking. MEDICATIONS: New Medicine: * You will likely be taking one or more of these medications: 1. Tramadol - A quick and shorter-acting pain medication. Take one to two tablets every four to six hours to lessen your pain. 2. Iron Sulfate - Take two times each day for the month after surgery to help you replace the blood lost during surgery. 3. Coumadin - Thins your blood to lessen the chance of forming a blood clot. The dose of this is different for each person and is based on your blood tests that are done. * The most common side effects of pain medicine and iron are nausea and constipation. If nausea or constipation is too much of a problem or if you have any questions about your new medicines or doses, call [facility] at [phone]. We will try to help you manage these issues. VERY IMPORTANT TO READ AND REVIEW" Pain: * The immediate post-operative period after knee replacement surgery is often quite painful. * You are given a prescription for pain medicine. You should take it, as directed, when you need it, especially before physical therapy and before going to bed. Pain that interferes with sleep is very common and can last several months. * You will likely need pain medicine for the first four to six weeks. It will not stop all of the pain. The pain will lessen and as you feel better, you may change to milder pain medicine such as Tylenol. * The most common side effects of pain medicine are nausea and constipation, so don't take more than you need. SPECIAL CARE INSTRUCTIONS: TEDs/Elastic Stockings: * The white elastic stockings help limit swelling and prevent blood clots from forming in your legs. The more you wear them, the more they work. * Wear them for six weeks after knee replacement surgery and four weeks after partial knee replacement. Prevention of Infection: * Take antibiotics one hour before any dental cleaning, dental work, urological procedure, gastrointestinal procedure or any invasive surgery in order to prevent your new joint from getting infected. * You may get the antibiotics from the doctor performing the procedure or you may call our office at before and we will call in a prescription to the pharmacy of your choice. Things to Watch For: * Drainage from the incision site that occurs more than one week after your surgery. * Severely increased knee/leg pain or swelling. * Increased redness at the incision site. * Fever above 102 degrees Fahrenheit. * Unusual chest pain or shortness of breath. * Unusual pain or burning with urination. Call [facility] at with any of the above problems or if you have any questions about your medicines or recovery. FOLLOW UP VISIT: Make an appointment to see your doctor for approximately two weeks after surgery for a progress check and staple removal by calling the office at . Current Hospital Diet Patient's current hospital diet: Regular Diet Discharge Diet Recommended Diet: Regular Diet Procedures Procedures Performed: Right Total Knee Arthroplasty Pending Studies Studies pending at discharge: no Medical Emergencies . Who to Call and When: Medical Emergencies: If at any time you feel your situation is an emergency, please call [phone] immediately. . Non-Emergent Contact Non-Emergency issues call your: Surgeon . "Provider Documentation" section prepared by Davidson De Jesus. . VTE Core Measure Inpt VTE Proph given/why not?: Warfarin (Coumadin), [place], SCD's
--- NOTE | 2017-02-07 21:35 | Discharge Instructions ---
Discharge Instructions Date of Service Feb 07, 2017. Admission Reason for Admission: Right Knee Degenerative Joint Disease Discharge Discharge Diagnosis / Problem: Right Knee Replacement Discharge Goals Goal(s): Decrease discomfort, Improve function, Increase independence, Improve disease control, Therapeutic intervention Activity Recommendations Activity Level: Assistance Required Therapies: Physical Therapy, Occupational Therapy Weightbearing Status: Right weightbearing . Additional Information Patient informed of condition: Yes Advance Directives: Yes DNR: No Level of Care: Skilled Communicable Disease: No Prognosis: Improving Instructions / Follow-Up Instructions / Follow-Up ACTIVITY RECOMMENDATIONS: Physical Therapy: * You will go to physical therapy three times each week for four to six weeks after your surgery in order to regain your knee range of motion and to retrain your knee to work properly. * It is just as important to make sure you are getting your knee perfectly straight as it is to regain your knee bend. * Taking a pain pill an hour before therapy can help you have a more productive and comfortable therapy session. Home Exercise: * You were shown a series of exercises (heel props, heel slides, etc.) in the hospital. Do these exercises three to four times each day including the exercises you were shown in physical therapy. Walking: * Get up and walk several times each day. For the first four weeks, try not to stand or walk for more than one hour at a time. If you do stand or walk for more than one hour, you will not hurt anything, but your knee and leg will likely swell. * As you feel comfortable, you may change from the walker or crutches to a cane and then to independent walking. MEDICATIONS: New Medicine: * You will likely be taking one or more of these medications: 1. Tramadol - A quick and shorter-acting pain medication. Take one to two tablets every four to six hours to lessen your pain. 2. Iron Sulfate - Take two times each day for the month after surgery to help you replace the blood lost during surgery. 3. Coumadin - Thins your blood to lessen the chance of forming a blood clot. The dose of this is different for each person and is based on your blood tests. * The most common side effects of pain medicine and iron are nausea and constipation. If nausea or constipation is too much of a problem or if you have any questions about your new medicines or doses, call [facility] at . We will try to help you manage these issues. VERY IMPORTANT TO READ AND REVIEW" Pain: * The immediate post-operative period after knee replacement surgery is often quite painful. * You are given a prescription for pain medicine. You should take it, as directed, when you need it, especially before physical therapy and before going to bed. Pain that interferes with sleep is very common and can last several months. * You will likely need pain medicine for the first four to six weeks. It will not stop all of the pain. The pain will lessen and as you feel better, you may change to milder pain medicine such as Tylenol. * The most common side effects of pain medicine are nausea and constipation, so don't take more than you need. SPECIAL CARE INSTRUCTIONS: TEDs/Elastic Stockings: * The white elastic stockings help limit swelling and prevent blood clots from forming in your legs. The more you wear them, the more they work. * Wear them for six weeks after knee replacement surgery and four weeks after partial knee replacement. Prevention of Infection: * Take antibiotics one hour before any dental cleaning, dental work, urological procedure, gastrointestinal procedure or any invasive surgery in order to prevent your new joint from getting infected. * You may get the antibiotics from the doctor performing the procedure or you may call our office at before and we will call in a prescription to the pharmacy of your choice. Things to Watch For: * Drainage from the incision site that occurs more than one week after your surgery. * Severely increased knee/leg pain or swelling. * Increased redness at the incision site. * Fever above 102 degrees Fahrenheit. * Unusual chest pain or shortness of breath. * Unusual pain or burning with urination. Call [facility] at with any of the above problems or if you have any questions about your medicines or recovery. FOLLOW UP VISIT: Make an appointment to see your doctor for approximately two weeks after surgery for a progress check and staple removal by calling the office at . Current Hospital Diet Patient's current hospital diet: Regular Diet Discharge Diet Recommended Diet: Regular Diet Procedures Procedures Performed: Right Total Knee Arthroplasty Pending Studies Studies pending at discharge: no Medical Emergencies . Who to Call and When: Medical Emergencies: If at any time you feel your situation is an emergency, please call [phone] immediately. . Non-Emergent Contact Non-Emergency issues call your: Surgeon . . "Provider Documentation" section prepared by Davidson De Jesus. . Core Measure Problem Core Measures: None
[2017-02-08] VITALS (11 sets, daily range): BP systolic 134–162; BP diastolic 41–76; PULSE 61–67; TEMP 36.6–37.5; O2SAT 94–98
[2017-02-08] MEDS: TRAMADOL HCL 50 MG TAB PO PRN ×2 (01:48→20:47)
[2017-02-08] MEDS: ACETAMINOPHEN 500 MG TAB PO SCH ×3 (05:45→20:41)
[2017-02-08 06:56] LABS: HEMATOCRIT 23.6 % (42-52); MEAN CELL VOLUME 91.8 fL (80-100); MEAN CORPUSCULAR HEMOGLOBIN 32.7 pg (25-34); MEAN CORPUSCULAR HGB CONC 35.6 g/dl (32-36); MEAN PLATELET VOLUME 9.7 fL (7.4-10.4); PLATELET COUNT 104 K/uL (130-400); RED BLOOD COUNT 2.57 M/uL (4.7-6.1); WHITE BLOOD COUNT 7.31 K/uL (4.8-10.8)
[2017-02-08 07:04] LABS: INR 2.1 (0.9-1.1); PROTHROMBIN TIME (PATIENT) 21.6 SECONDS (9.0-12.0)
[2017-02-08 07:25] LABS: BUN/CREATININE RATIO 19.7 (10-20); CALCIUM 7.6 mg/dl (8.5-10.1); CREATININE 1.22 mg/dl (0.60-1.40); POTASSIUM 4.8 mmol/L (3.5-5.1)
--- NOTE | 2017-02-08 08:14 | PROGRESS NOTE ---
DATE: 02/08/2017 SUBJECTIVE: A 76-year-old gentleman postop day 2 from a right knee replacement. He is doing pretty well. Some moderate amount of knee pain. He apparently was confused last evening but doing better this morning. He is concerned about his blood pressure being low. Denies any chest pain or shortness of breath. OBJECTIVE: VITAL SIGNS: Temperature 36.9. Vital signs stable. Blood pressure 137/43. GENERAL: Reveals a pleasant, middle-aged male. He is lying in bed, looks pretty comfortable. EXTREMITIES: Examination of the right leg reveals to be well-aligned. Really not much in the way of swelling. His leg actually looks better than it had been preop. He can dorsiflex and plantarflex his foot appropriately. He is neurologically intact. LABORATORY DATA: Hemoglobin 8.4, hematocrit 23.6. INR is 2.1. Electrolytes are stable. ASSESSMENT: A 76-year-old gentleman postop day 2 from a right total knee replacement, doing pretty well. He was little hypotensive initially but blood pressure looks stable. He is anemic, but asymptomatic. His INR is now in the therapeutic range. PLAN: 1. DVT prophylaxis including thigh-high TEDs, SCDs, and Coumadin. 2. PT/OT. Weightbearing as tolerated. Right total knee protocol. 3. Pain control. Doing reasonably well with current pain regimen. We need to be careful with pain medicine as to avoid his confusion issues. 4. Medical management as per medicine service. 5. Disposition: Plan to discharge to the [facility] likely tomorrow after his 3 night stay.
[2017-02-08] MEDS: CEROVITE ADV FORMULA TAB PO SCH (08:51)
[2017-02-08] MEDS: FERROUS GLUCONATE 324 MG TAB PO SCH ×3 (08:51→18:13)
[2017-02-08] MEDS: PANTOprazole SOD 40 MG TAB PO SCH (08:52)
[2017-02-08] MEDS: RANITIDINE HCL 150 MG TAB PO SCH ×3 (08:52→18:13)
[2017-02-08] MEDS: SALMETEROL XINAFOATE 50MCG 28 BLISTER INH INH SCH ×2 (08:52→20:40)
[2017-02-08] MEDS: ASCORBIC ACID 500 MG TAB PO SCH (08:53)
[2017-02-08] MEDS: MAGNESIUM OXIDE 400 MG TAB PO SCH ×2 (08:53→20:40)
[2017-02-08] MEDS: CALCIUM 600MG + VIT D 400 IU TAB PO SCH (08:54)
[2017-02-08] MEDS: ASPIRIN 81 MG CHEW PO SCH (08:54)
[2017-02-08] MEDS: POTASSIUM CHLORIDE 10 MEQ TABCR PO SCH (08:55)
[2017-02-08] MEDS: POLYETHYLENE (MIRALAX) 17 GM PACK PO SCH (08:56)
[2017-02-08] MEDS: DOCUSATE SODIUM 100 MG CAP PO SCH ×2 (08:56→20:48)
[2017-02-08] MEDS: AMIODARONE 200 MG TAB PO SCH (08:57)
[2017-02-08] MEDS ORDERED: ENOXAPARIN 40 MG/0.4 ML SYR SQ SCH (09:00)
[2017-02-08] MEDS: AMLODIPINE BESYLATE 5 MG TAB PO SCH (10:01)
[2017-02-08] MEDS: METOPROLOL SUCC 50MG EXT REL TAB PO SCH (12:40)
[2017-02-08] MEDS ORDERED: WARFARIN SOD 5 MG TAB PO SCH (16:00)
[2017-02-08 16:05] LABS: HEMATOCRIT 23.4 % (42-52)
[2017-02-08] MEDS ORDERED: SODIUM CHLORIDE 0.9% 500ML 500 ML IV SCH (16:45)
--- NOTE | 2017-02-08 16:54 | Progress Note ---
Medicine Progress Note Date & Time of Visit: Feb 08, 2017 at 11:28. Subjective Pt was seen and examined Lying in bed with no distress Pt said that this morning his BP dropped when standing going to the bathroom He said that he felt dizzy when it occurred Pt sister said that pt was confused last night Denies any chest pain, palpitation and SOB Objective Last 8 Hrs Date Time Temp Pulse Resp B/P (MAP) Pulse Ox O2 Delivery O2 Flow Rate FiO2 02/08/17 15:11 37.4 63 20 136/41 (72) 94 Room Air 02/08/17 13:03 67 134/51 (78) 02/08/17 08:45 96 Room Air Physical Exam: General- No acute distress Head- atraumatic Eyes- PERRL, EOMI ENT- oropharynx clear Neck- supple, no JVD Lungs- No wheezing Heart- regular rhythm Abdomen- normal bowel sounds, soft Extremities- no pretibial edema, right knee cover with dressing Neuro- alert, oriented x 3; PERRL, EOMI Skin- warm & dry Laboratory Results: Last 24 Hours Test 02/08/17 06:32 02/08/17 15:41 White Blood Count 7.31 K/uL Red Blood Count 2.57 M/uL Hemoglobin 8.4 g/dL 8.0 g/dL Hematocrit 23.6 % 23.4 % Mean Corpuscular Volume 91.8 fL Mean Corpuscular Hemoglobin 32.7 pg Mean Corpuscular Hemoglobin Concent 35.6 g/dl RDW Standard Deviation 45.4 fL RDW Coefficient of Variation 13.5 % Platelet Count 104 K/uL Mean Platelet Volume 9.7 fL Prothrombin Time 21.6 SECONDS Prothromb Time International Ratio 2.1 Sodium Level 132 mmol/L Potassium Level 4.8 mmol/L Chloride Level 104 mmol/L Carbon Dioxide Level 24 mmol/L Anion Gap 4.0 mmol/L Blood Urea Nitrogen 24 mg/dl Creatinine 1.22 mg/dl Est Creatinine Clear Calc Drug Dose 57.9 ml/min Estimated GFR () 66.3 Estimated GFR (Non- 57.2 BUN/Creatinine Ratio 19.7 Random Glucose 95 mg/dl Calcium Level 7.6 mg/dl Assessment & Plan S/P RIGHT TKA POD#[address] De Jesus Continue pain control Incentive spirometry PT/OT hgb dropped to 8 Acute blood loss Anemia S/P right TKA Hbg 8 Type and cross and will transfuse 1 unit Already received today coumadin dose If hgb continues to drop, will hold coumadin PAROXYSMAL A. FIB Was bradycardia yesterday Continue amiodarone metoprolol resumed Coumadin already given today. will hold next dose if h/h drops in am INR 2.1 CAD Continue beta carrington, and statin hold asa for now Stable HTN Will hold Norvac and lisinoril for now due to orthostatic Continue metoprolo ORTHOSTATIC HYPOTENSION Possible related to low volume hold lisinopril, and amlodipine Will give addition [id number] NS and will transfuse 1 unit PRBC COPD continue home inhalers stable DVT PROPHYLAXIS INR 2.1 Therapeutic On Coumadin CODE STATUS FULL CODE Current Inpatient Medications: Current Inpatient Medications Medications (Trade) Dose Ordered Sig/Martine Route Start Time Stop Time Status Last Admin Dose Admin Acetaminophen (Tylenol Tab) 1,000 mg Q8 PO 02/06/17 14:00 03/08/17 13:59 02/08/17 14:43 1,000 MG Magnesium Hydroxide (Milk Of Magnesia Susp) 30 ml Q6H PRN PO 02/06/17 11:00 03/08/17 10:59 Bisacodyl (Dulcolax Supp) 10 mg DAILY PRN NE 02/06/17 11:00 03/08/17 10:59 Senna (Senokot Tab) 17.2 mg HS PO 02/06/17 21:00 03/08/17 20:59 02/07/17 20:49 17.2 MG Al Hydrox/Mg Hydrox/Simethicone (Maalox Max Susp) 15 ml Q4H PRN PO 02/06/17 11:00 03/08/17 10:59 Zolpidem Tartrate (Ambien Tab) 5 mg HSZ PRN PO 02/06/17 11:00 03/08/17 10:59 Ondansetron HCl (Zofran Inj) 4 mg Q6H PRN IV 02/06/17 11:00 03/08/17 10:59 Metoclopramide HCl (Reglan Inj) 10 mg Q6H PRN IV 02/06/17 11:00 03/08/17 10:59 Ferrous Gluconate (Ferrous Gluconate Tab) 324 mg TIDM PO 02/06/17 17:45 03/08/17 17:44 12/7/17 12:41 324 MG Pantoprazole Sodium (Protonix Tab) 40 mg QAM PO 02/07/17 09:00 03/09/17 08:59 02/08/17 08:52 40 MG Silver Sulfadiazine (Silvadene 1% Crm 50GM Jar) 1 appln BID PRN EXT 02/06/17 11:00 03/08/17 10:59 Tamsulosin HCl (Flomax Cap) 0.4 mg QAM PRN PO 02/06/17 11:00 03/08/17 10:59 Tramadol HCl (Ultram Tab) 1 tablet for pain rating... Q4H PRN PO 02/06/17 11:00 03/08/17 10:59 02/08/17 01:48 50 MG Albuterol (Ventolin Hfa Inhaler) 2 puffs Q6 PRN INH 02/06/17 11:00 03/08/17 10:59 Alfuzosin HCl (Uroxatral Tab) 10 mg HS PO 02/06/17 21:00 03/08/17 20:59 02/07/17 20:49 10 MG Amiodarone HCl (Cordarone Tab) 200 mg QAM PO 02/07/17 09:00 03/09/17 08:59 02/08/17 08:57 200 MG Amlodipine Besylate (Norvasc Tab) 2.5 mg DAILY PO 02/07/17 09:00 03/09/17 08:59 Aspirin (Aspirin Chew) 81 mg QAM PO 02/07/17 09:00 03/09/17 08:59 02/08/17 08:54 81 MG Atorvastatin Calcium (Lipitor Tab) 20 mg HS PO 02/06/17 21:00 03/08/17 20:59 02/07/17 20:48 20 MG Clotrimazole (Lotrimin 1% Crm) 1 appln DAILY PRN EXT 02/06/17 11:00 03/08/17 10:59 Docusate Sodium (coLACE CAP) 100 mg BID PO 02/06/17 21:00 03/08/17 20:59 02/07/17 20:48 100 MG Fluticasone Propionate (Flonase Nasal [place]) 2 sprays BID PRN PILI 02/06/17 11:00 03/08/17 10:59 Lorazepam (Ativan Tab) 0.5 mg BID PRN PO 02/06/17 11:00 03/08/17 10:59 02/07/17 06:12 0.5 MG Magnesium Oxide (Mag-Ox Tab) 400 mg BID PO 02/06/17 21:00 03/08/17 20:59 02/08/17 08:53 400 MG Multivitamins/ Minerals (Multivitamin W/ Minerals Tab) 1 tab DAILY PO 02/07/17 09:00 03/09/17 08:59 02/08/17 08:51 1 TAB Polyethylene (Miralax Powder Packet) 17 gm DAILY PO 02/07/17 09:00 03/09/17 08:59 02/07/17 09:11 17 GM Potassium Chloride (Klor-Con M10) 10 meq QAM PO 02/07/17 09:00 03/09/17 08:59 02/08/17 08:55 10 MEQ Sodium Chloride ([place] Nasal [place]) 2 sprays UD PRN NA 02/06/17 11:00 03/08/17 10:59 Salmeterol Xinafoate (Serevent Diskus Inh) 2 puffs BID INH 02/06/17 21:00 03/08/17 20:59 02/08/17 08:52 2 PUFFS Triamcinolone Acetonide (Kenalog 0.1% Cream) 1 appln DAILY PRN EXT 02/06/17 11:00 03/08/17 10:59 Miscellaneous Information (Order Awaiting Action) 1 ea QS N/A 02/06/17 16:00 03/08/17 15:59 Ascorbic Acid (Vitamin C Tab) 500 mg QAM PO 02/07/17 09:00 03/09/17 08:59 02/08/17 08:53 500 MG Calcium/Vitamin D (Caltrate Plus Tab) 1 tab QAM PO 02/07/17 09:00 03/09/17 08:59 02/08/17 08:54 1 TAB Miscellaneous Information (Order Awaiting Action) 1 ea QS N/A 02/06/17 16:00 03/08/17 15:59 Ranitidine HCl (zANTac TAB) 150 mg TIDM PO 02/06/17 12:30 03/08/17 12:29 02/08/17 12:41 150 MG Hydromorphone HCl (Dilaudid Inj) 0.5 mg Q1H PRN IV 02/06/17 11:00 02/20/17 10:59 Warfarin Sodium (Coumadin Tab) 5 mg DAILY@16 PO 02/08/17 16:00 03/10/17 15:59 02/08/17 15:47 5 MG Metoprolol Succinate (Toprol Xl Tab) 100 mg DAILY PO 02/08/17 09:00 03/10/17 08:59
[2017-02-08] MEDS: ATORVASTATIN 20 MG TAB PO SCH (20:39)
[2017-02-08] MEDS: ALFUZosin TAB 10 MG TAB PO SCH (20:40)
[2017-02-08] MEDS: SENNA 8.6 MG TAB PO SCH (20:48)
[2017-02-08] MEDS ORDERED: COUGH DROP (SUGAR FREE) LOZ 24 LOZ/1 BOX PO PRN (22:00)
[2017-02-09 00:41] VITALS: BP 158/56; PULSE 65; TEMP 37.1; O2SAT 96
[2017-02-09] MEDS: ACETAMINOPHEN 500 MG TAB PO SCH (05:57)
[2017-02-09 06:37] LABS: INR 2.4 (0.9-1.1); PROTHROMBIN TIME (PATIENT) 24.3 SECONDS (9.0-12.0)
[2017-02-09 07:22] LABS: HEMATOCRIT 26.9 % (42-52)
[2017-02-09 07:57] VITALS: BP 138/64; PULSE 64; TEMP 36.8; O2SAT 94
[2017-02-09 08:37] VITALS: O2SAT 94
[2017-02-09] MEDS: POLYETHYLENE (MIRALAX) 17 GM PACK PO SCH (08:49)
[2017-02-09] MEDS: DOCUSATE SODIUM 100 MG CAP PO SCH (08:49)
[2017-02-09] MEDS: MAGNESIUM OXIDE 400 MG TAB PO SCH (08:52)
[2017-02-09] MEDS: ASCORBIC ACID 500 MG TAB PO SCH (08:53)
[2017-02-09] MEDS: POTASSIUM CHLORIDE 10 MEQ TABCR PO SCH (08:53)
[2017-02-09] MEDS: METOPROLOL SUCC 50MG EXT REL TAB PO SCH (08:53)
[2017-02-09] MEDS: FERROUS GLUCONATE 324 MG TAB PO SCH ×2 (08:54→12:44)
[2017-02-09] MEDS: PANTOprazole SOD 40 MG TAB PO SCH (08:54)
[2017-02-09] MEDS: RANITIDINE HCL 150 MG TAB PO SCH ×2 (08:54→12:44)
[2017-02-09] MEDS: CEROVITE ADV FORMULA TAB PO SCH (08:54)
[2017-02-09] MEDS: CALCIUM 600MG + VIT D 400 IU TAB PO SCH (08:55)
[2017-02-09] MEDS: AMIODARONE 200 MG TAB PO SCH (08:55)
[2017-02-09] MEDS: SALMETEROL XINAFOATE 50MCG 28 BLISTER INH INH SCH (08:55)
[2017-02-09] MEDS: AMLODIPINE BESYLATE 5 MG TAB PO SCH (09:01)
--- NOTE | 2017-02-09 09:07 | PROGRESS NOTE ---
DATE: 02/09/2017 SUBJECTIVE: A 76-year-old gentleman postop day 3 from right knee replacement. He is doing pretty well. Painful but not out of the ordinary. He has got a lot of worries about his blood pressure and other issues. Denies any chest pain or shortness of breath. Not feeling dizzy or lightheaded. OBJECTIVE: VITAL SIGNS: Temperature 36.8. Vital signs stable. Blood pressure good at 138/64. PHYSICAL EXAMINATION: GENERAL: Reveals a pleasant elderly male. He is very conversant this morning. EXTREMITIES: Examination of the right leg reveals the leg to be well aligned. He does have some bloody drainage on his dressing. He can dorsiflex and plantarflex his foot appropriately. NEUROLOGIC: He is neurologically intact. LABORATORY DATA: Hemoglobin 9.1. Hematocrit 26.9. INR is 2.4. Electrolytes are stable. ASSESSMENT: A 76-year-old gentleman postop day 3 from right knee replacement, doing reasonably well. He has got a lot worries and concerns but everything looks stable. His hemoglobin is improved. He does have some bloody drainage on his dressing which is not unexpected, especially with his need for anticoagulation. PLAN: 1. DVT prophylaxis including thigh-high TEDs, SCDs and Coumadin. He is currently in the therapeutic range with his INR. 2. PT/OT. Weight bear as tolerated. Right total knee protocol. 3. Pain control. Doing reasonably well with current pain regimen. 4. Medical management as per the medicine service. 5. Disposition: He is hoping to go to the [facility] for a brief longterm stay. He is orthopedically stable. We will likely get him there today if accepted with medicine.
--- NOTE | 2017-02-09 10:38 | Progress Note ---
Medicine Progress Note Date & Time of Visit: Feb 09, 2017 at 10:18. Subjective Pt was seen and examined Sitting in chair comfortable with no distress Getting ready to start PT Pt feels much better today He did not feel dizzy when getting up today His blood pressure has been steady Denies any chest pain, palpitation dizziness and SOB Objective Last 8 Hrs Date Time Temp Pulse Resp B/P (MAP) Pulse Ox O2 Delivery O2 Flow Rate FiO2 02/09/17 08:37 94 Room Air 02/09/17 08:00 Room Air 02/09/17 07:57 36.8 64 18 138/64 (88) 94 Room Air Physical Exam: General- No acute distress Head- atraumatic Eyes- PERRL, EOMI ENT- oropharynx clear Neck- supple, no JVD Lungs- No wheezing Heart- regular rhythm Abdomen- normal bowel sounds, soft Extremities- no pretibial edema, right knee cover with dressing Neuro- alert, oriented x 3; PERRL, EOMI Skin- warm & dry Laboratory Results: Last 24 Hours Test 02/08/17 15:41 02/09/17 05:49 Hemoglobin 8.0 g/dL 9.1 g/dL Hematocrit 23.4 % 26.9 % Prothrombin Time 24.3 SECONDS Prothromb Time International Ratio 2.4 Assessment & Plan S/P RIGHT TKA POD#[address] De Jesus Continue pain control Incentive spirometry Continue PT/OT Received 1 unit PRBC yesterday Hgb 9.1 today Acute blood loss Anemia S/P right TKA 1 units PRBC transfused yesterday Hbg 9.1 Continue monitor CBC PAROXYSMAL A. FIB Was bradycardia Continue amiodarone and metoprolol Continue Coumadin INR 2.4 CAD Continue beta carrington, and statin Resume aspirin on discharge Stable HTN BP has been stable Lisinopril has been on hold On amlodipine 2.5 mg, will discontinue it Will decrease resume lisinopril and decrease it to 20mg daily Continue home dose metoprolol Continue monitor BP closely and titrate lisinopril if needed ORTHOSTATIC HYPOTENSION Possible related to low volume Received IVF and 1 unit PRBC yesterday Resolved COPD continue home inhalers stable DVT PROPHYLAXIS INR 2.4 Therapeutic On Coumadin CODE STATUS FULL CODE DISPOSITION Ok from medicine standpoint to discharge Current Inpatient Medications: Current Inpatient Medications Medications (Trade) Dose Ordered Sig/Martine Route Start Time Stop Time Status Last Admin Dose Admin Acetaminophen (Tylenol Tab) 1,000 mg Q8 PO 02/06/17 14:00 03/08/17 13:59 02/09/17 05:57 1,000 MG Magnesium Hydroxide (Milk Of Magnesia Susp) 30 ml Q6H PRN PO 02/06/17 11:00 03/08/17 10:59 Bisacodyl (Dulcolax Supp) 10 mg DAILY PRN [place] 02/06/17 11:00 03/08/17 10:59 Senna (Senokot Tab) 17.2 mg HS PO 02/06/17 21:00 03/08/17 20:59 02/07/17 20:49 17.2 MG Al Hydrox/Mg Hydrox/Simethicone (Maalox Max Susp) 15 ml Q4H PRN PO 02/06/17 11:00 03/08/17 10:59 Zolpidem Tartrate (Ambien Tab) 5 mg HSZ PRN PO 02/06/17 11:00 03/08/17 10:59 Ondansetron HCl (Zofran Inj) 4 mg Q6H PRN IV 02/06/17 11:00 03/08/17 10:59 Metoclopramide HCl (Reglan Inj) 10 mg Q6H PRN IV 02/06/17 11:00 03/08/17 10:59 Ferrous Gluconate (Ferrous Gluconate Tab) 324 mg TIDM PO 02/06/17 17:45 03/08/17 17:44 02/09/17 08:54 324 MG Pantoprazole Sodium (Protonix Tab) 40 mg QAM PO 02/07/17 09:00 03/09/17 08:59 02/09/17 08:54 40 MG Silver Sulfadiazine (Silvadene 1% Crm 50GM Jar) 1 appln BID PRN EXT 02/06/17 11:00 03/08/17 10:59 Tamsulosin HCl (Flomax Cap) 0.4 mg QAM PRN PO 02/06/17 11:00 03/08/17 10:59 Tramadol HCl (Ultram Tab) 1 tablet for pain rating... Q4H PRN PO 02/06/17 11:00 03/08/17 10:59 02/08/17 20:47 50 MG Albuterol (Ventolin Hfa Inhaler) 2 puffs Q6 PRN INH 02/06/17 11:00 03/08/17 10:59 Alfuzosin HCl (Uroxatral Tab) 10 mg HS PO 02/06/17 21:00 03/08/17 20:59 02/08/17 20:40 10 MG Amiodarone HCl (Cordarone Tab) 200 mg QAM PO 02/07/17 09:00 03/09/17 08:59 02/09/17 08:55 200 MG Amlodipine Besylate (Norvasc Tab) 2.5 mg DAILY PO 02/07/17 09:00 03/09/17 08:59 Future hold 02/09/17 09:01 2.5 MG Aspirin (Aspirin Chew) 81 mg QAM PO 02/07/17 09:00 03/09/17 08:59 Future Hold 02/08/17 08:54 81 MG Atorvastatin Calcium (Lipitor Tab) 20 mg HS PO 02/06/17 21:00 03/08/17 20:59 02/08/17 20:39 20 MG Clotrimazole (Lotrimin 1% Crm) 1 appln DAILY PRN EXT 02/06/17 11:00 03/08/17 10:59 Docusate Sodium (coLACE CAP) 100 mg BID PO 02/06/17 21:00 03/08/17 20:59 02/07/17 20:48 100 MG Fluticasone Propionate (Flonase Nasal [place]) 2 sprays BID PRN PILI 02/06/17 11:00 03/08/17 10:59 Lorazepam (Ativan Tab) 0.5 mg BID PRN PO 02/06/17 11:00 03/08/17 10:59 02/07/17 06:12 0.5 MG Magnesium Oxide (Mag-Ox Tab) 400 mg BID PO 02/06/17 21:00 03/08/17 20:59 02/09/17 08:52 400 MG Multivitamins/ Minerals (Multivitamin W/ Minerals Tab) 1 tab DAILY PO 02/07/17 09:00 03/09/17 08:59 02/09/17 08:54 1 TAB Polyethylene (Miralax Powder Packet) 17 gm DAILY PO 02/07/17 09:00 03/09/17 08:59 02/07/17 09:11 17 GM Potassium Chloride (Klor-Con M10) 10 meq QAM PO 02/07/17 09:00 03/09/17 08:59 02/09/17 08:53 10 MEQ Sodium Chloride ([place] Nasal [place]) 2 sprays UD PRN NA 02/06/17 11:00 03/08/17 10:59 Salmeterol Xinafoate (Serevent Diskus Inh) 2 puffs BID INH 02/06/17 21:00 03/08/17 20:59 02/09/17 08:55 2 PUFFS Triamcinolone Acetonide (Kenalog 0.1% Cream) 1 appln DAILY PRN EXT 02/06/17 11:00 03/08/17 10:59 Miscellaneous Information (Order Awaiting Action) 1 ea QS N/A 02/06/17 16:00 03/08/17 15:59 Ascorbic Acid (Vitamin C Tab) 500 mg QAM PO 02/07/17 09:00 03/09/17 08:59 02/09/17 08:53 500 MG Calcium/Vitamin D (Caltrate Plus Tab) 1 tab QAM PO 02/07/17 09:00 03/09/17 08:59 02/09/17 08:55 1 TAB Miscellaneous Information (Order Awaiting Action) 1 ea QS N/A 02/06/17 16:00 03/08/17 15:59 Ranitidine HCl (zANTac TAB) 150 mg TIDM PO 02/06/17 12:30 03/08/17 12:29 02/09/17 08:54 150 MG Hydromorphone HCl (Dilaudid Inj) 0.5 mg Q1H PRN IV 02/06/17 11:00 02/20/17 10:59 Warfarin Sodium (Coumadin Tab) 5 mg DAILY@16 PO 02/08/17 16:00 03/10/17 15:59 02/08/17 15:47 5 MG Metoprolol Succinate (Toprol Xl Tab) 100 mg DAILY PO 02/08/17 09:00 03/10/17 08:59 02/09/17 08:53 100 MG Menthol (Nice Arron) 1 arron PRN PRN PO 02/08/17 22:00 03/10/17 21:59 02/08/17 22:08 1 ARRON
--- NOTE | 2017-02-09 10:45 | Consultant Recommendations ---
Baker Operator Automatic Recommendations Date of Service Feb 09, 2017. Baker Operator Automatic Recommendations Continue monitor blood pressure Discontinue amlodipine 2.5 mg for now Lisinopril decreased to 20mg daily Continue home dose metoprolol at 100mg Continue monitor BP closely and titrate lisinopril if needed Check CBC in 2 -3 days Continue monitor INR and check INR in 2 days (INR today 2.4) Continue Coumadin 5 mg
[2017-02-09] MEDS ORDERED: LSN20 PO (10:49)
[2017-02-09 11:01] VITALS: BP 134/64; PULSE 62
[2017-02-09 12:08] VITALS: BP 144/61; PULSE 63; TEMP 36.9; O2SAT 98
[2017-02-09] MEDS: TRAMADOL HCL 50 MG TAB PO PRN (12:44)
--- NOTE | 2017-02-12 17:27 | DISCHARGE SUMMARY ---
ADMITTING PHYSICIAN AND SURGEON: Dr. De Jesus. ADMITTING DIAGNOSIS: Right knee degenerative joint disease. SURGERY PERFORMED: Right total knee arthroplasty and extensive synovectomy. SECONDARY DIAGNOSES: Hypertension, paroxysmal atrial fibrillation, history of thoracic aneurysm, coronary artery disease, history of transient ischemic attack, low back pain, and gastroesophageal reflux disease. CONSULTS: Dr. Roldan for postoperative medical management. HISTORY AND PHYSICAL EXAMINATION: Well documented in the patient's chart. HOSPITAL COURSE: The patient was admitted on 02/06/2017 and underwent total knee arthroplasty. He tolerated the procedure well. There were no complications. He was transferred to the PACU postoperatively and later to the orthopedic floor for further care. He was given Ancef for antibiotic prophylaxis and VICKY stockings, SCDs, and Coumadin for DVT prophylaxis and also bridged with Lovenox. His INR was monitored daily and Coumadin dosed accordingly. Hemoglobin, hematocrit and vital signs were monitored during his hospital stay. He did develop some postoperative anemia with a hemoglobin down to 8.0. He was transfused 1 unit of packed red blood cells. His hemoglobin came back to 9.1. He was followed by the hospitalist service throughout his hospital stay. There were no complications. He did have some orthostatic hypotension and again, was given a unit of packed red blood cells as well as IV fluid bolus. By postoperative day #3, he was tolerating a regular diet. Pain was controlled with oral pain medicine. He was participating in physical therapy and had no signs or symptoms of deep vein thrombosis. On postoperative day #3, he was discharged to a halfway facility. He was given printed discharge instructions including new prescriptions for extra strength Tylenol, iron supplement and tramadol. Continue his home medications including Coumadin. He was given new prescriptions for the doses of lisinopril and instructed to stop Tylenol, amlodipine, and Lovenox. He will continue physical therapy, weightbearing as tolerated, and VICKY stockings. Follow up in 10-12 days or sooner if there are any problems or concerns. He also given instructions by Dr. Parks from the hospitalist service to continue monitoring his blood pressure, discontinue the amlodipine for now, lisinopril decreased to 20 mg daily, continue his home dose of metoprolol at 100 mg, continue monitoring his blood pressure closely and titrate lisinopril if needed, check a CBC in 2-3 days, continue monitoring his INR and check INR in 2 days, continue Coumadin 5 mg daily and follow up with his primary care provider when discharged from the [facility].
== END 2017-02-09 13:25 | DRG 470 ==
LOC: C.ACU 06:04 → C.3E 06:15 → ENRESERV 11:09
PROVIDERS: ADMIT Orthopaedic Surgery Sports Medicine; ATTEND Orthopaedic Surgery Sports Medicine
PROC: 0SRC0J9 Replacement of Right Knee Joint with Synthetic Substitute, Cemented, Open Approach (ICD-10-PCS; principal; 2017-02-06 08:50)
DX: M17.11 Unilateral primary osteoarthritis, right knee (principal); I10 Essential (primary) hypertension; I48.0 Paroxysmal atrial fibrillation; I95.89 Other hypotension; I25.10 Atherosclerotic heart disease of native coronary artery without angina pectoris; Z95.5 Presence of coronary angioplasty implant and graft; Z86.73 Personal history of transient ischemic attack (TIA), and cerebral infarction without residual deficits; K21.9 Gastro-esophageal reflux disease without esophagitis; Z79.82 Long term (current) use of aspirin; Z79.01 Long term (current) use of anticoagulants; N40.0 Benign prostatic hyperplasia without lower urinary tract symptoms; J44.9 Chronic obstructive pulmonary disease, unspecified

== ENCOUNTER → 2017-02-13 | Outpatient (CLI) | payer OTHER, BC ==
[~2017-02-13] MED LIST changes: -ACET-1311 PO; +ACET-24 PO; -ACETAMINOPHEN 500 MG TAB PO SCH; -BUPIVACAINE LIPOSOME 266 MG, BUPIVACAINE/EPINEPHRINE INJ 50 ML, SODIUM CHLORIDE 0.9% PF... INFIL SCH; -CEFAZOLIN 2000MG IV PUSH 10 ML IV SCH; -CMD5 PO; -FAMOTIDINE 20 MG TAB PO SCH; +FRRG PO; -GABAPENTIN 300 MG CAP PO SCH; -LACTATED RINGER'S 1000ML 1,000 ML IV SCH; -LACTATED RINGER'S 1000ML 500 ML IV ONE; -LACTATED RINGER'S 1000ML IV SCH; +LSN20 PO; -LSN40 PO; -METOCLOPRAMIDE HCL 10 MG TAB PO SCH; -SCOPOLAMINE 1.5 MG TDSY TD SCH; +SRVDIN60 INH; +ULT50 PO; +ULT50X PO
[2017-02-13 09:13] LABS: PROTHROMBIN TIME (PATIENT) 30.7 SECONDS (9.0-12.0)
== END | disposition home or self-care (01) ==
LOC: C.LABVPSUA 08:50
PROVIDERS: ATTEND Internal Medicine Critical Care Medicine
DX: I48.91 Unspecified atrial fibrillation (principal)

== ENCOUNTER → 2017-02-16 | Outpatient (CLI) | payer OTHER, BC ==
[2017-02-16 09:29] LABS: INR 3.4 (0.9-1.1); PROTHROMBIN TIME (PATIENT) 34.7 SECONDS (9.0-12.0)
== END | disposition home or self-care (01) ==
LOC: C.LABVPSUA 09:06
PROVIDERS: ATTEND Internal Medicine Critical Care Medicine
DX: I48.91 Unspecified atrial fibrillation (principal)

== ENCOUNTER → 2017-02-23 | Outpatient (CLI) | payer OTHER, BC ==
[2017-02-23 09:03] LABS: INR 1.9 (0.9-1.1); PROTHROMBIN TIME (PATIENT) 19.7 SECONDS (9.0-12.0)
== END | disposition home or self-care (01) ==
LOC: C.LABVPSUA 08:38
PROVIDERS: ATTEND Internal Medicine Critical Care Medicine
DX: I48.91 Unspecified atrial fibrillation (principal)

== ENCOUNTER → 2017-03-02 | Outpatient (CLI) | payer OTHER, BC ==
[2017-03-02 08:57] LABS: INR 1.6 (0.9-1.1); PROTHROMBIN TIME (PATIENT) 16.4 SECONDS (9.0-12.0)
== END | disposition home or self-care (01) ==
LOC: C.LABVPSUA 08:27
PROVIDERS: ATTEND Internal Medicine Critical Care Medicine
DX: I48.91 Unspecified atrial fibrillation (principal)

== ENCOUNTER 2017-03-17 05:53 | Emergency (ER) | payer OTHER, BC ==
[~2017-03-17] VITALS: Ht 185.4 cm; Wt 92.0 kg
[2017-03-17 05:59] VITALS: TEMP 36.6; Ht 185.4 cm; Wt 92.0 kg
[2017-03-17 07:33] VITALS: O2SAT 96
[2017-03-17 07:35] LABS: BASO % 0.3 %; BASO ABS # 0.01 K/uL (0-0.2); EOS % 1.2 %; EOS ABS # 0.04 K/uL (0-0.5); HEMATOCRIT 31.6 % (42-52); HEMOGLOBIN 10.5 g/dL (14.0-18.0); IG# 0.02 K/uL (0.00-0.02); LYMPH % 14.7 %; LYMPH ABS # 0.49 K/uL (1.2-3.4); MEAN CELL VOLUME 91.6 fL (80-100); MEAN CORPUSCULAR HEMOGLOBIN 30.4 pg (25-34); MEAN CORPUSCULAR HGB CONC 33.2 g/dl (32-36); MEAN PLATELET VOLUME 9.6 fL (7.4-10.4); MONO % 10.8 %; MONO ABS # 0.36 K/uL (0.11-0.59); NEUT % 72.4 %; NEUT ABS # 2.41 K/uL (1.4-6.5); PLATELET COUNT 145 K/uL (130-400); RED CELL DISTRIBUTION WIDTH CV 13.8 % (11.5-14.5); RED CELL DISTRIBUTION WIDTH SD 46.4 fL (36.4-46.3); WHITE BLOOD COUNT 3.33 K/uL (4.8-10.8)
[2017-03-17 07:45] LABS: INR 2.3 (0.9-1.1); PTT PATIENT 34.3 SECONDS (21.0-31.0)
--- NOTE | 2017-03-17 07:49 | DIAGNOSTIC IMAGING REPORT ---
L ELBOW MIN 3 VIEWS ROUTINE CLINICAL HISTORY: trauma pain COMPARISON: None. DISCUSSION: The bones and joint spaces appear intact. There is no evidence of fracture, dislocation or bony disease. There are findings of mild calcific epicondylitis. There is an osteophyte from the posterior aspect of the proximal ulna. There is no fracture or dislocation. Moderate soft tissue edema. IMPRESSION: Soft tissue edema. Mild degenerative change. Calcific epicondylitis. No acute bony abnormality. The above report was generated using voice recognition software. It may contain grammatical, syntax or spelling errors. Electronically signed by: Moreno Cotto M.D. 03/17/2017 7:47 AM Dictated Date/Time: 03/17/2017 7:47 AM
--- NOTE | 2017-03-17 07:50 | DIAGNOSTIC IMAGING REPORT ---
R KNEE 1 OR 2 VIEWS ROUTINE CLINICAL HISTORY: right knee pain, fall trauma. Pain. COMPARISON: 02/06/2017 DISCUSSION: Prior total right knee replacement. Good contact between prosthetic and underlying bone. No evidence for fracture. Moderate prepatellar soft tissue edema. IMPRESSION: Prepatellar soft tissue edema. No acute bony abnormality post total right knee arthroplasty. The above report was generated using voice recognition software. It may contain grammatical, syntax or spelling errors. Electronically signed by: Moreno Cotto M.D. 03/17/2017 7:48 AM Dictated Date/Time: 03/17/2017 7:48 AM
[2017-03-17 07:51] LABS: ALT/SGPT 32 U/L (12-78); AST/SGOT 28 U/L (15-37); BLOOD UREA NITROGEN 15 mg/dl (7-18); CALCIUM 7.9 mg/dl (8.5-10.1); CARBON DIOXIDE 27 mmol/L (21-32); CREATININE 1.08 mg/dl (0.60-1.40); GLUCOSE 110 mg/dl (70-99); LIPASE 145 U/L (73-393); POTASSIUM 4.8 mmol/L (3.5-5.1); SODIUM 130 mmol/L (136-145)
[2017-03-17 08:03] LABS: ALKALINE PHOSPHATASE 108 U/L (45-117)
[2017-03-17] MEDS ORDERED: XYLOCAINE 1%/SOD BICARB 20 ML VIAL INFIL ONE (09:35)
--- NOTE | 2017-03-17 10:19 | EMERGENCY ROOM VISIT NOTE ---
ED Visit Note I was asked to suture this patient's wound by Dr. Reid. Please see his dictation for full history and physical. Informed oral consent was obtained from the patient. Left elbow was prepped with Betadine and draped with a sterile towel. Wound was anesthetized using 4ml 1% buffered lidocaine in a direct infiltration. A thorough inspection was performed. No foreign material was present. Wound was irrigated copiously using Betadine diluted with normal sterile saline under jet spray lavage. There was no additional foreign material visible in the wound. It was then closed using 3-0 nylon in a simple interrupted [id number] fashion. 2 sutures were placed. Excellent wound edge approximation was achieved. Hemostasis was achieved. Wound care precautions were reviewed. Wound care handout was provided. Sutures out in 12 days. He may shower. Avoid prolonged soaking or swimming for 2 weeks. Cleanse daily with soap and water and reapply a small amount of bacitracin or Neosporin. Patient did mention some abrasions on his right forearm. These were evaluated. They're superficial. There are already healing, as they occurred 1 or 2 days ago. Band-Aids were applied. No further intervention is necessary at this time. Problem List Medical Problems: (1) Anxiety Status: Chronic (2) BPH (benign prostatic hyperplasia) Status: Chronic (3) CAD (coronary artery disease) Status: Chronic (4) COPD (chronic obstructive pulmonary disease) Status: Chronic (5) Diverticulosis Status: Chronic (6) Dyslipidemia Status: Chronic (7) GERD (gastroesophageal reflux disease) Status: Chronic (8) Neuropathy Status: Chronic (9) Paroxysmal A-fib Status: Chronic (10) TIA (transient ischemic attack) Status: Chronic Surgical Problems: (1) H/O arthroscopic knee surgery Status: Chronic (2) H/O thoracic aortic aneurysm repair Status: Chronic (3) S/P CABG x 1 Status: Chronic Current/Historical Medications Scheduled Acetaminophen (Sb Non-Aspirin Extra Stre), 1,000 MG PO Q8 Alfuzosin HCl (Alfuzosin HCl ER), 10 MG PO HS Aloe-Sodium Chloride (Chambers Saline Nasal Gel), 1 APPLN TOP TID Amiodarone HCl (Amiodarone HCl), 200 MG PO QAM Ascorbic Acid (Vitamin C), 500 MG PO QAM Aspirin (Aspirin Chewable), 81 MG PO QAM Atorvastatin (Lipitor), 20 MG PO HS Calcium Carbonate-Cholecalcife (Calcium 600+D3 600-400 mg-Unit), 1 TAB PO QAM Docusate Sodium (Docusate Sodium), 100 MG PO BID Ferrous Gluconate (Ferrous Gluconate), 324 MG PO BIDM Lisinopril (Lisinopril), 1 TAB PO DAILY Magnesium Oxide (Mag-Ox), 400 MG PO BID Metoprolol Succinate (Metoprolol Succinate ER), 100 MG PO QAM Multivitamins/Minerals (Mvi With Minerals), 1 TAB PO noon Polyethylene Glycol 3350 (Miralax), 1 DOSE PO DAILY Potassium Chloride Microencaps (Potassium Chloride Cr), 10 MEQ PO QAM Ranitidine (Zantac), 150 MG PO TIDM Salmeterol Xinafoate (Serevent Diskus), 1 PUFF INH BID Warfarin Sodium (Coumadin), 5 MG PO DAILY Scheduled PRN Albuterol Hfa (Ventolin Hfa), 2 PUFFS INH Q6 PRN for SOB/Wheezing Clotrimazole (Topical) (Clotrimazole Anti-Fungal), 1 APPLN TOP DAILY PRN for UNDECIDED Fluticasone Propionate (Nasal) (Flonase Allergy Relief), 1-2 SPRAY PILI BID PRN for CONGESTION Furosemide (Lasix), 40 MG PO DAILY PRN for SWELLING Hydrocortisone Butyrate (Locoid), 1 APPLN TOP DAILY PRN for UNDECIDED Lorazepam (Lorazepam), 0.5 MG PO BID PRN for Anxiety Saline (Saline Mist), 2 SPRAYS NA UD PRN for DRYNESS Senna (Senokot), 1 TAB PO QPM PRN for Constipation Tramadol HCl (Tramadol HCl), 50 MG PO Q6 PRN for Pain Tramadol HCl (Tramadol HCl), 50-100 MG PO Q6H PRN for Pain Triamcinolone Acet (Aristocort 0.1%), 1 APPLN TOP DAILY PRN for UNDECIDED Allergies Coded Allergies: Guaifenesin (Verified Allergy, Unknown, GETS REALLY SICK FROM MUCINEX, 01/09/17) Vital Signs Date Time Temp Pulse Resp B/P (MAP) Pulse Ox O2 Delivery O2 Flow Rate FiO2 03/17/17 09:39 50 18 147/53 98 Room Air 03/17/17 07:59 172/69 171/72 168/59 03/17/17 07:58 47 18 96 Room Air 03/17/17 07:33 96 Room Air 03/17/17 07:07 49 18 172/58 96 Room Air 03/17/17 05:59 36.6 51 18 150/67 94 Room Air Laboratory Results 03/17/17 07:25 Red Blood Count 3.45, Mean Corpuscular Volume 91.6, Mean Corpuscular Hemoglobin 30.4, Mean Corpuscular Hemoglobin Concent 33.2, Mean Platelet Volume 9.6, Neutrophils (%) (Auto) 72.4, Lymphocytes (%) (Auto) 14.7, Monocytes (%) (Auto) 10.8, Eosinophils (%) (Auto) 1.2, Basophils (%) (Auto) 0.3, Neutrophils # (Auto ) 2.41, Lymphocytes # (Auto) 0.49, Monocytes # (Auto) 0.36, Eosinophils # (Auto ) 0.04, Basophils # (Auto) 0.01 03/17/17 07:25 Test 03/17/17 07:25 03/17/17 07:39 White Blood Count 3.33 K/uL (4.8-10.8) Red Blood Count 3.45 M/uL (4.7-6.1) Hemoglobin 10.5 g/dL (14.0-18.0) Hematocrit 31.6 % (42-52) Mean Corpuscular Volume 91.6 fL (80-100) Mean Corpuscular Hemoglobin 30.4 pg (25-34) Mean Corpuscular Hemoglobin Concent 33.2 g/dl (32-36) Platelet Count 145 K/uL (130-400) Mean Platelet Volume 9.6 fL (7.4-10.4) Neutrophils (%) (Auto) 72.4 % Lymphocytes (%) (Auto) 14.7 % Monocytes (%) (Auto) 10.8 % Eosinophils (%) (Auto) 1.2 % Basophils (%) (Auto) 0.3 % Neutrophils # (Auto) 2.41 K/uL (1.4-6.5) Lymphocytes # (Auto) 0.49 K/uL (1.2-3.4) Monocytes # (Auto) 0.36 K/uL (0.11-0.59) Eosinophils # (Auto) 0.04 K/uL (0-0.5) Basophils # (Auto) 0.01 K/uL (0-0.2) RDW Standard Deviation 46.4 fL (36.4-46.3) RDW Coefficient of Variation 13.8 % (11.5-14.5) Immature Granulocyte % (Auto) 0.6 % Immature Granulocyte # (Auto) 0.02 K/uL (0.00-0.02) Prothrombin Time 24.1 SECONDS (9.0-12.0) Prothromb Time International Ratio 2.3 (0.9-1.1) Activated Partial Thromboplast Time 34.3 SECONDS (21.0-31.0) Partial Thromboplastin Ratio 1.3 Anion Gap 6.0 mmol/L (3-11) Est Creatinine Clear Calc Drug Dose 65.7 ml/min Estimated GFR () 76.9 Estimated GFR (Non- 66.3 BUN/Creatinine Ratio 14.2 (10-20) Calcium Level 7.9 mg/dl (8.5-10.1) Magnesium Level 1.9 mg/dl (1.8-2.4) Total Bilirubin 1.1 mg/dl (0.2-1) Direct Bilirubin 0.5 mg/dl (0-0.2) Aspartate Amino Transf (AST/SGOT) 28 U/L (15-37) Alanine Aminotransferase (ALT/SGPT) 32 U/L (12-78) Alkaline Phosphatase 108 U/L (45-117) Troponin I < 0.015 ng/ml (0-0.045) Total Protein 6.0 gm/dl (6.4-8.2) Albumin 3.0 gm/dl (3.4-5.0) Lipase 145 U/L (73-393) Thyroid Stimulating Hormone (TSH) 1.110 uIu/ml (0.300-4.500) Urine Color DK YELLOW Urine Appearance CLOUDY (CLEAR) Urine pH 7.0 (4.5-7.5) Urine Specific [place] 1.021 (1.000-1.030) Urine Protein NEG (NEG) Urine Glucose (UA) NEG (NEG) Urine Ketones NEG (NEG) Urine Occult Blood NEG (NEG) Urine Nitrite NEG (NEG) Urine Bilirubin NEG (NEG) Urine Urobilinogen NEG (NEG) Urine Leukocyte Esterase NEG (NEG) Urine WBC (Auto) 1-5 /hpf (0-5) Urine RBC (Auto) 0-4 /hpf (0-4) Urine Hyaline Casts (Auto) 1-5 /lpf (0-5) Urine Epithelial Cells (Auto) 20-30 /lpf (0-5) Urine Bacteria (Auto) NEG (NEG) Departure Information Referrals [facility] (PCP) Patient Instructions My [facility]
--- NOTE | 2017-03-17 10:56 | EMERGENCY ROOM VISIT NOTE ---
History Report prepared by Magdiel: Johanna Downing Under the Supervision of: Dr. Olaf Reid M.D. First contact with patient: 06:41 Chief Complaint: FALL Stated Complaint: FALL History of Present Illness The patient is a 76 year old male who presents to the Emergency Room with complaints of a sudden fall occurring this morning. He complains of left elbow pain. The patient states that he had 2 other falls this week. The patient reports a history of a knee replacement February 06, and states that his falls this week have increased his knee pain by about 50%. He states that he did not hit his head during any of these falls. 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 He reports that he has had constipation since the surgery, but that he is taking medication for it. Pt denies fevers, chills, neck pain, chest pain, breathing difficulties, nausea, vomiting, abdominal pain, melena, hematochezia, or other complaints. Source of History: patient Onset: this morning Position: other (global) Quality: other (fall) Timing: other (sudden) Associated Symptoms: No chest pain Note: symptoms: left elbow pain, knee pain Review of Systems See HPI for pertinent positives and negatives. A total of ten systems were reviewed and were otherwise negative. Past Medical & Surgical Medical Problems: (1) Anxiety (2) BPH (benign prostatic hyperplasia) (3) CAD (coronary artery disease) (4) COPD (chronic obstructive pulmonary disease) (5) Diverticulosis (6) Dyslipidemia (7) GERD (gastroesophageal reflux disease) (8) Neuropathy (9) Paroxysmal A-fib (10) TIA (transient ischemic attack) Surgical Problems: (1) H/O arthroscopic knee surgery (2) H/O thoracic aortic aneurysm repair (3) S/P CABG x 1 Family History Stroke FATHER MOTHER Social History Smoking Status: Former Smoker Alcohol Use: occasionally Current/Historical Medications Scheduled Acetaminophen (Sb Non-Aspirin Extra Stre), 1,000 MG PO Q8 Alfuzosin HCl (Alfuzosin HCl ER), 10 MG PO HS Aloe-Sodium Chloride (Sullivan Saline Nasal Gel), 1 APPLN TOP TID Amiodarone HCl (Amiodarone HCl), 200 MG PO QAM Ascorbic Acid (Vitamin C), 500 MG PO QAM Aspirin (Aspirin Chewable), 81 MG PO QAM Atorvastatin (Lipitor), 20 MG PO HS Calcium Carbonate-Cholecalcife (Calcium 600+D3 600-400 mg-Unit), 1 TAB PO QAM Docusate Sodium (Docusate Sodium), 100 MG PO BID Ferrous Gluconate (Ferrous Gluconate), 324 MG PO BIDM Lisinopril (Lisinopril), 1 TAB PO DAILY Magnesium Oxide (Mag-Ox), 400 MG PO BID Metoprolol Succinate (Metoprolol Succinate ER), 100 MG PO QAM Multivitamins/Minerals (Mvi With Minerals), 1 TAB PO noon Polyethylene Glycol 3350 (Miralax), 1 DOSE PO DAILY Potassium Chloride Microencaps (Potassium Chloride Cr), 10 MEQ PO QAM Ranitidine (Zantac), 150 MG PO TIDM Salmeterol Xinafoate (Serevent Diskus), 1 PUFF INH BID Warfarin Sodium (Coumadin), 5 MG PO DAILY Scheduled PRN Albuterol Hfa (Ventolin Hfa), 2 PUFFS INH Q6 PRN for SOB/Wheezing Clotrimazole (Topical) (Clotrimazole Anti-Fungal), 1 APPLN TOP DAILY PRN for UNDECIDED Fluticasone Propionate (Nasal) (Flonase Allergy Relief), 1-2 SPRAY PILI BID PRN for CONGESTION Furosemide (Lasix), 40 MG PO DAILY PRN for SWELLING Hydrocortisone Butyrate (Locoid), 1 APPLN TOP DAILY PRN for UNDECIDED Lorazepam (Lorazepam), 0.5 MG PO BID PRN for Anxiety Saline (Saline Mist), 2 SPRAYS NA UD PRN for DRYNESS Senna (Senokot), 1 TAB PO QPM PRN for Constipation Tramadol HCl (Tramadol HCl), 50 MG PO Q6 PRN for Pain Tramadol HCl (Tramadol HCl), 50-100 MG PO Q6H PRN for Pain Triamcinolone Acet (Aristocort 0.1%), 1 APPLN TOP DAILY PRN for UNDECIDED Allergies Coded Allergies: Guaifenesin (Verified Allergy, Unknown, GETS REALLY SICK FROM MUCINEX, 01/09/17) Physical Exam Vital Signs Date Time Temp Pulse Resp B/P (MAP) Pulse Ox O2 Delivery O2 Flow Rate FiO2 03/17/17 12:08 50 18 166/54 97 03/17/17 11:05 51 18 133/64 97 Room Air 03/17/17 09:39 50 18 147/53 98 Room Air 03/17/17 07:59 172/69 171/72 168/59 03/17/17 07:58 47 18 96 Room Air 03/17/17 07:33 96 Room Air 03/17/17 07:07 49 18 172/58 96 Room Air 03/17/17 05:59 36.6 51 18 150/67 94 Room Air Physical Exam GENERAL: Awake, alert, well-appearing, in no distress HENT: Normocephalic, atraumatic. Oropharynx unremarkable. EYES: Pale conjunctiva. Sclera non-icteric. NECK: Supple. No nuchal rigidity. FROM. No JVD. RESPIRATORY: Clear to auscultation. CARDIAC: Bradycardia, normal rhythm. Extremities warm and well perfused. Pulses equal. ABDOMEN: Soft, non-distended. No tenderness to palpation. No rebound or guarding. No masses. RECTAL: Deferred. MUSCULOSKELETAL: Chest examination reveals no tenderness. The back is symmetrical on inspection without obvious abnormality. There is no CVA tenderness to palpation. Mild swelling and tenderness to the right knee; however , incision is clean, dry, and intact. No warmth or erythema. Small less than 1 cm laceration on left elbow. Good range of motion of elbow, some tenderness posteriorly. LOWER EXTREMITIES: Calves are equal size bilaterally and non-tender. Dry skin on left heel. Chronic venous changes on the left heel. NEURO: Normal sensorium. No sensory or motor deficits noted. SKIN: No rash or jaundice noted. Medical Decision & Procedures ER Provider Diagnostic Interpretation: Radiology results as stated below per my review and radiologist interpretation: L ELBOW MIN 3 VIEWS ROUTINE CLINICAL HISTORY: trauma pain COMPARISON: None. DISCUSSION: The bones and joint spaces appear intact. There is no evidence of fracture, dislocation or bony disease. There are findings of mild calcific epicondylitis. There is an osteophyte from the posterior aspect of the proximal ulna. There is no fracture or dislocation. Moderate soft tissue edema. IMPRESSION: Soft tissue edema. Mild degenerative change. Calcific epicondylitis. No acute bony abnormality. The above report was generated using voice recognition software. It may contain grammatical, syntax or spelling errors. Electronically signed by: Moreno Cotto M.D. 03/17/2017 7:47 AM Dictated Date/Time: 03/17/2017 7:47 AM R KNEE 1 OR 2 VIEWS ROUTINE CLINICAL HISTORY: right knee pain, fall trauma. Pain. COMPARISON: 02/06/2017 DISCUSSION: Prior total right knee replacement. Good contact between prosthetic and underlying bone. No evidence for fracture. Moderate prepatellar soft tissue edema. IMPRESSION: Prepatellar soft tissue edema. No acute bony abnormality post total right knee arthroplasty. The above report was generated using voice recognition software. It may contain grammatical, syntax or spelling errors. Electronically signed by: Moreno Cotto M.D. 03/17/2017 7:48 AM Dictated Date/Time: 03/17/2017 7:48 AM Laboratory Results 03/17/17 07:25 Red Blood Count 3.45, Mean Corpuscular Volume 91.6, Mean Corpuscular Hemoglobin 30.4, Mean Corpuscular Hemoglobin Concent 33.2, Mean Platelet Volume 9.6, Neutrophils (%) (Auto) 72.4, Lymphocytes (%) (Auto) 14.7, Monocytes (%) (Auto) 10.8, Eosinophils (%) (Auto) 1.2, Basophils (%) (Auto) 0.3, Neutrophils # (Auto ) 2.41, Lymphocytes # (Auto) 0.49, Monocytes # (Auto) 0.36, Eosinophils # (Auto ) 0.04, Basophils # (Auto) 0.01 03/17/17 07:25 Test 03/17/17 07:25 03/17/17 07:39 White Blood Count 3.33 K/uL (4.8-10.8) Red Blood Count 3.45 M/uL (4.7-6.1) Hemoglobin 10.5 g/dL (14.0-18.0) Hematocrit 31.6 % (42-52) Mean Corpuscular Volume 91.6 fL (80-100) Mean Corpuscular Hemoglobin 30.4 pg (25-34) Mean Corpuscular Hemoglobin Concent 33.2 g/dl (32-36) Platelet Count 145 K/uL (130-400) Mean Platelet Volume 9.6 fL (7.4-10.4) Neutrophils (%) (Auto) 72.4 % Lymphocytes (%) (Auto) 14.7 % Monocytes (%) (Auto) 10.8 % Eosinophils (%) (Auto) 1.2 % Basophils (%) (Auto) 0.3 % Neutrophils # (Auto) 2.41 K/uL (1.4-6.5) Lymphocytes # (Auto) 0.49 K/uL (1.2-3.4) Monocytes # (Auto) 0.36 K/uL (0.11-0.59) Eosinophils # (Auto) 0.04 K/uL (0-0.5) Basophils # (Auto) 0.01 K/uL (0-0.2) RDW Standard Deviation 46.4 fL (36.4-46.3) RDW Coefficient of Variation 13.8 % (11.5-14.5) Immature Granulocyte % (Auto) 0.6 % Immature Granulocyte # (Auto) 0.02 K/uL (0.00-0.02) Prothrombin Time 24.1 SECONDS (9.0-12.0) Prothromb Time International Ratio 2.3 (0.9-1.1) Activated Partial Thromboplast Time 34.3 SECONDS (21.0-31.0) Partial Thromboplastin Ratio 1.3 Anion Gap 6.0 mmol/L (3-11) Est Creatinine Clear Calc Drug Dose 65.7 ml/min Estimated GFR () 76.9 Estimated GFR (Non- 66.3 BUN/Creatinine Ratio 14.2 (10-20) Calcium Level 7.9 mg/dl (8.5-10.1) Magnesium Level 1.9 mg/dl (1.8-2.4) Total Bilirubin 1.1 mg/dl (0.2-1) Direct Bilirubin 0.5 mg/dl (0-0.2) Aspartate Amino Transf (AST/SGOT) 28 U/L (15-37) Alanine Aminotransferase (ALT/SGPT) 32 U/L (12-78) Alkaline Phosphatase 108 U/L (45-117) Troponin I < 0.015 ng/ml (0-0.045) Total Protein 6.0 gm/dl (6.4-8.2) Albumin 3.0 gm/dl (3.4-5.0) Lipase 145 U/L (73-393) Thyroid Stimulating Hormone (TSH) 1.110 uIu/ml (0.300-4.500) Urine Color DK YELLOW Urine Appearance CLOUDY (CLEAR) Urine pH 7.0 (4.5-7.5) Urine Specific [place] 1.021 (1.000-1.030) Urine Protein NEG (NEG) Urine Glucose (UA) NEG (NEG) Urine Ketones NEG (NEG) Urine Occult Blood NEG (NEG) Urine Nitrite NEG (NEG) Urine Bilirubin NEG (NEG) Urine Urobilinogen NEG (NEG) Urine Leukocyte Esterase NEG (NEG) Urine WBC (Auto) 1-5 /hpf (0-5) Urine RBC (Auto) 0-4 /hpf (0-4) Urine Hyaline Casts (Auto) 1-5 /lpf (0-5) Urine Epithelial Cells (Auto) 20-30 /lpf (0-5) Urine Bacteria (Auto) NEG (NEG) Laboratory results reviewed by me ECG Indication: weakness Rate (beats per minute): 48 Rhythm: sinus bradycardia Findings: 1st degree AV block, no acute ischemic change Change: no significant change ED Course 0709: The patient was evaluated in room A10. A complete history and physical exam was performed. 0925: PT/OT consult on medical command regarding patient. 0935: Ordered Lidocaine HCL 20 ml. 0940: I checked on the patient and he is doing well. 1057: Upon reexamination, the patient was resting. I discussed the test results and treatment plan with him. The patient will be transferred to [facility]. Medical Decision Prior records/ancillary studies reviewed and summarized above. Nursing notes reviewed and agree them. The patient's history was concerning for weakness and multiple falls. Differential diagnosis: Etiologies such as soft tissue injury, fracture, dislocation, metabolic, infection, hypo/hyperglycemia, electrolyte abnormalities, cardiac sources, intracerebral event, toxicologic, neurologic, as well as others were entertained. Physical examination: As above. ER treatment provided: IV Lock Wound care and laceration repair of the left elbow. Please see procedure note by Seth Perkins PA-C. On reassessment the patient felt better. Diagnostics interpretation by me: ECG: No ischemia The labs revealed a mild anemia on CBC. Chemistry panel showed slight hyponatremia. Otherwise laboratory studies were unremarkable. Imaging studies: X-rays as above The patient is generally weak and has been falling multiple times. He lives alone. He was evaluated by the rehabilitation case coordinator. He is felt to be a good candidate for inpatient rehabilitation. Consultation: A consultation was placed with [facility] rehabilitation services. The patient was accepted for further management. Medication Reconcilliation Current Medication List: was personally reviewed by me Blood Pressure Screening Patient's blood pressure: Elevated blood pressure Blood pressure disposition: Referred to PCP Impression Primary Impression: Contusion of multiple sites Additional Impressions: Fall Laceration of left elbow Generalized weakness Scribe Attestation The scribe's documentation has been prepared under my direction and personally reviewed by me in its entirety. I confirm that the note above accurately reflects all work, treatment, procedures, and medical decision making performed by me. Departure Information Dispostion Transfer Acute Care Facility Referrals [facility] (PCP) Patient Instructions My [facility] Additional Instructions Proceed directly to [facility] for further management and care. WOUND CARE INSTRUCTIONS: Bacitracin to wounds once daily. Use a non-stick dressing such as a large band-aid. Change the dressings once a day. Tylenol as needed for pain. Allow your wounds to air dry several hours per day when you are resting, but it is a good idea to keep them covered while sleeping to prevent irritation and the sheets sticking to the wound. Apply direct pressure for any bleeding. Return to the ER immediately for spreading redness, fevers, pus-like drainage, severe pain, or as needed. Return to the ER or to primary provider in 12 days for suture/staple removal, or sooner as needed. Problem Qualifiers
[2017-03-17 12:08] VITALS: BP 166/54; PULSE 50; O2SAT 97
== END 2017-03-17 12:21 | disposition short-term general hospital (02) ==
LOC: EDBD 05:53 → C.EDA 05:55
DX: T14.8XXA Other injury of unspecified body region, initial encounter (principal); S51.012A Laceration without foreign body of left elbow, initial encounter; R53.1 Weakness; W19.XXXA Unspecified fall, initial encounter; Y92.9 Unspecified place or not applicable; Z96.651 Presence of right artificial knee joint; F41.9 Anxiety disorder, unspecified; N40.0 Benign prostatic hyperplasia without lower urinary tract symptoms; I25.10 Atherosclerotic heart disease of native coronary artery without angina pectoris; K57.90 Diverticulosis of intestine, part unspecified, without perforation or abscess without bleeding; E78.5 Hyperlipidemia, unspecified; K21.9 Gastro-esophageal reflux disease without esophagitis; G62.9 Polyneuropathy, unspecified; I48.0 Paroxysmal atrial fibrillation; Z86.73 Personal history of transient ischemic attack (TIA), and cerebral infarction without residual deficits; Z95.1 Presence of aortocoronary bypass graft; Z87.891 Personal history of nicotine dependence; Z82.49 Family history of ischemic heart disease and other diseases of the circulatory system; Z79.82 Long term (current) use of aspirin; Z79.01 Long term (current) use of anticoagulants; Z79.899 Other long term (current) drug therapy

== ENCOUNTER → 2017-04-03 | Outpatient (CLI) | payer OTHER, BC ==
[~2017-04-03] MED LIST changes: +AMLO2.5T PO; +FAMO1TAB47 PO; +FURO40TA3 PO; +LISI-461 PO; +LSN40 PO; +TAMS0.4C38 PO; +TRAZ-120 PO
[2017-04-03 12:49] LABS: INR 2.8 (0.9-1.1)
== END | disposition home or self-care (01) ==
LOC: C.LABWYN 10:49
PROVIDERS: ATTEND Pharmacist Pharmacotherapy
DX: Z51.81 Encounter for therapeutic drug level monitoring (principal); Z79.01 Long term (current) use of anticoagulants

== ENCOUNTER 2017-04-05 13:58 | Inpatient (IN) | payer OTHER, BC ==
[~2017-04-05] VITALS: Ht 188 cm; Wt 72.5 kg
[~2017-04-05 13:58] MED LIST changes: -AMLO2.5T PO; -FAMO1TAB47 PO; -FURO40TA3 PO; -LISI-461 PO; -LSN40 PO; -TAMS0.4C38 PO; -TRAZ-120 PO
[2017-04-05 15:36] LABS: BASO % 0.4 %; BASO ABS # 0.02 K/uL (0-0.2); EOS % 0.4 %; EOS ABS # 0.02 K/uL (0-0.5); HEMATOCRIT 36.5 % (42-52); HEMOGLOBIN 12.2 g/dL (14.0-18.0); IG# 0.02 K/uL (0.00-0.02); LYMPH % 8.6 %; LYMPH ABS # 0.48 K/uL (1.2-3.4); MEAN CELL VOLUME 89.5 fL (80-100); MEAN CORPUSCULAR HEMOGLOBIN 29.9 pg (25-34); MEAN CORPUSCULAR HGB CONC 33.4 g/dl (32-36); MONO % 16.3 %; MONO ABS # 0.91 K/uL (0.11-0.59); NEUT % 73.9 %; NEUT ABS # 4.13 K/uL (1.4-6.5); PLATELET COUNT 156 K/uL (130-400); RED CELL DISTRIBUTION WIDTH CV 14.3 % (11.5-14.5); RED CELL DISTRIBUTION WIDTH SD 47.2 fL (36.4-46.3); WHITE BLOOD COUNT 5.58 K/uL (4.8-10.8)
[2017-04-05 15:39] LABS: INR 3.5 (0.9-1.1); PTT PATIENT 41.3 SECONDS (21.0-31.0)
[2017-04-05 15:45] LABS: ALBUMIN 3.1 gm/dl (3.4-5.0); CALCIUM 8.1 mg/dl (8.5-10.1); CREATININE 1.03 mg/dl (0.60-1.40); POTASSIUM 4.4 mmol/L (3.5-5.1)
--- NOTE | 2017-04-05 15:50 | DIAGNOSTIC IMAGING REPORT ---
SINGLE VIEW CHEST CLINICAL HISTORY: Dyspnea. FINDINGS: An AP, portable, upright chest radiograph is compared to study dated 05/07/2016. The examination is degraded by portable technique and patient rotation. The patient is status post midline sternotomy. The heart is enlarged and there is atherosclerotic calcification of the thoracic and. There is pulmonary vascular congestion. There are layering pleural effusions with bibasilar consolidation. No pneumothorax is seen. The skeletal structures are osteopenic. The bony thorax is grossly intact. IMPRESSION: 1. Cardiomegaly with evidence of congestive failure. 2. There are bilateral pleural effusions with associated consolidation. This likely represents atelectasis. Correlate clinically for evidence of superimposed pneumonia. Electronically signed by: Robert Hernandez M.D. 04/05/2017 3:48 PM Dictated Date/Time: 04/05/2017 3:47 PM
[2017-04-05 16:04] LABS: TOTAL PROTEIN 6.9 gm/dl (6.4-8.2)
[2017-04-05] MEDS ORDERED: ASPIRIN 81 MG CHEW PO STA (16:13)
[2017-04-05] MEDS ORDERED: LEVAQUIN 750MG / 150ML D5W IV STA (16:13)
[2017-04-05] MEDS ORDERED: FUROSEMIDE INJ 20 MG in SYRINGE 0 ML IV ONE (16:15)
[2017-04-05] MEDS ORDERED: AMLO2.5T PO (16:19)
[2017-04-05] MEDS ORDERED: TAMS0.4C38 PO (16:19)
[2017-04-05] MEDS ORDERED: TRAZ-120 PO (16:19)
[2017-04-05] MEDS ORDERED: FAMO1TAB47 PO (16:19)
[2017-04-05] MEDS ORDERED: LISI-461 PO (16:35)
[2017-04-05] MEDS ORDERED: ACETAMINOPHEN 325 MG TAB PO PRN (17:30)
[2017-04-05] MEDS ORDERED: NITROGLYCERIN 0.4 MG SL PER TAB CHARGE SL PRN (17:30)
[2017-04-05] MEDS ORDERED: LEVALBUTEROL/IPRATROPIUM NEB INH PRN (17:45)
[2017-04-05] MEDS ORDERED: LEVALBUTEROL 1.25MG/0.5ML NEB INH PRN (18:00)
[2017-04-05] MEDS ORDERED: LSN40 PO (18:06)
[2017-04-05 18:14] VITALS: O2SAT 96; Ht 188 cm; Wt 72.5 kg
[2017-04-05] MEDS ORDERED: FURO40TA3 PO (18:14)
[2017-04-05] MEDS ORDERED: CONSULT PHARMACY STA (18:14)
[2017-04-05] MEDS ORDERED: FLUTICASONE PROPIONATE NA SPR 16 GM BTL NAE PRN (18:30)
[2017-04-05] MEDS ORDERED: PIPERACILL/TAZOBAC CONSULT ACTIVE PRN (19:15)
--- NOTE | 2017-04-05 19:19 | History and Physical ---
History & Physical Date of Service Apr 05, 2017. History & Physical This is a 76 year old male with a PMH of moderate COPD, paroxysmal A. Fib on long-term anticoagulation, hx. of ascending aortic aneurysm repair, peripheral vascular disease, anxiety, GERD - presents from [facility] due to possible aspiration, shortness of breath, worsening congestion. Patient was at [facility] in February for a R knee surgery. He was discharged to the [facility] for a month; states he was doing better, but then when he got home, he became weak and fell. Was transferred to [facility] for 2 weeks, and continued to get weak. He was then transferred to [facility] for rehab. As per records, nursing staff over there thought maybe he was aspirating. Became very congested, coughing for one week. Denies chest pain, palpitations, denies fevers/chills. VITALS: Last Vital Signs Documentation Date Time Temp Pulse Resp B/P (MAP) Pulse Ox O2 Delivery O2 Flow Rate FiO2 04/05/17 18:14 96 Room Air 04/05/17 17:25 37.0 51 18 166/68 GEN: no acute distress HEENT: NC/AT CVS: +S1, S2, RRR LUNGS: +sonorous breath sounds, +rhonchi diffusely EXT: +2 pitting edema b/l LE, venous stasis dermatitis, +excoriated skin between skin folds of groin NEURO: no focal deficits Plan: Possible CHF? +edema, +fluid overload, +bilateral pleural effusions, elevated BNP will check an updated echo; last one was in 2016 with a normal LVEF does have Lasix prescribed PRN for edema, but has not taken it plan is to insert a Byrd catheter, Lasix 20mg IV BID, I's and O's cardiology consultation pending Elevated Troponin Level likely secondary to fluid overload mildly elevated troponin, we will trend troponin and check an echo continue aspirin and statin Acute COPD Exacerbation patient seems to have sonorous end expiratory wheezing diffusely will add prednisone 40mg x5 days nebulizers as needed (Xopenex) Possible Pneumonia CXR suggests possible pneumonia nursing at [facility] suggested possible aspiration? will get a bedside swallow evaluation speech consulted Zosyn started due to multiple admissions to facilities check MRSA swab Sinus Bradycardia HRs in the 50s continue amiodarone hold b-carrington for now Paroxysmal A. Fib continue amiodarone hold b-carrington due to bradycardia hold Coumadin, goal INR of 2-3 (INR of 3.5 on admission) Hyponatremia seems like a chronic hyponatremia this is likely worsened by fluid overload check serum and urine osm monitor sodium DVT ppx Coumadin DNR
--- NOTE | 2017-04-05 19:21 | History and Physical ---
History & Physical Date & Time of Service: Apr 05, 2017 at 18:36 Chief Complaint: Fluid Overload, Sob Primary Care Physician: Felix Dorado History of Present Illness Source: patient, clinic records, hospital records Pt is 76 y/o M with PMH paroxysmal a-fib on Coumadin and amiodarone, HTN, CAD s/ p CABG in 2016, hx TIA, chronic hyponatremia, COPD, s/p thoracic aortic aneurysm repair presented to ER with c/o cough x 6 days. Seen at PCP today and sent in to ER for possible CHF vs PNA. Pt reports clear to yellow productive cough x 6 days with 2 episodes brown/blood tinged sputum. None today. SOB with coughing only. Denies CP. Pt reports past week been sleeping in recliner and past couple weeks sleeping reclined bed to help with his breathing. Noticed bilateral leg edema since his R TKA in 02/18. Pt reports progressive weakness since R TKA in 02/18. He was d/c to [facility] after TKA and was using walker to ambulated. Went home on 03/12/17. Had multiple falls. Went to [facility] for 2 weeks and 03/30/17 to [facility]. States now he is using wheelchair and can' t do his ADL's. Reports having urinary incontinence also and now has erythema groin. Home question of pt choking recently, however pt doesn't feel he has been choking. Denies recent epistaxis. Denies extremity pain or erythema. He has been wearing compression stockings. Denies fever/chills, diaphoresis, N/V/D/ C, [place], dizziness, syncope, vision changes, neck pain, palpitations, sore throat , choking, otalgia, abdominal pain, dysuria, hematuria. Hx echo 2016: EF:60-64%, aortic sclerosis without stenosis, mild-mod aortic insufficiency Past Medical/Surgical History Medical Problems: (1) Anxiety Status: Chronic (2) BPH (benign prostatic hyperplasia) Status: Chronic (3) CAD (coronary artery disease) Status: Chronic (4) Contusion of multiple sites Status: Resolved (5) COPD (chronic obstructive pulmonary disease) Status: Chronic (6) Diverticulosis Status: Chronic (7) Dyslipidemia Status: Chronic (8) Fall Status: Resolved (9) GERD (gastroesophageal reflux disease) Status: Chronic (10) Laceration of left elbow Status: Resolved (11) Neuropathy Status: Chronic (12) Paroxysmal A-fib Status: Chronic (13) TIA (transient ischemic attack) Status: Chronic Surgical Problems: (1) H/O arthroscopic knee surgery Status: Chronic (2) H/O thoracic aortic aneurysm repair Status: Chronic (3) S/P CABG x 1 Status: Chronic Family History Stroke FATHER MOTHER Social History Smoking Status: Former Smoker Smokeless Tobacco Use: No Alcohol Use: none Drug Use: none Housing status: other (at [facility]) Immunizations History of Influenza Vaccine: Yes Influenza Vaccine Date: Dec 28, 2010 History of Tetanus Vaccine?: Yes Tetanus Immunization Date: Nov 27, 2004 History of Pneumococcal: Yes Pneumococcal Date: Nov 25, 2004 History of Hepatitis B Vaccine: Yes Multi-Drug Resistant Organisms History of MDRO: No Allergies Coded Allergies: Guaifenesin (Verified Allergy, Unknown, GETS REALLY SICK FROM MUCINEX, 01/09/17) Home Medications Scheduled Amiodarone HCl (Amiodarone HCl), 200 MG PO QAM Aspirin (Aspirin Chewable), 81 MG PO QAM Atorvastatin (Lipitor), 20 MG PO HS Docusate Sodium (Docusate Sodium), 100 MG PO BID Famotidine (Famotidine), 20 MG PO BID Lisinopril (Lisinopril), 1 TAB PO DAILY Magnesium Oxide (Mag-Ox), 400 MG PO BID Metoprolol Succinate (Metoprolol Succinate ER), 100 MG PO QAM Potassium Chloride Microencaps (Potassium Chloride Cr), 10 MEQ PO QAM Salmeterol Xinafoate (Serevent Diskus), 1 PUFF INH BID Tamsulosin Hcl (Flomax), 0.4 MG PO DAILY Warfarin Sodium (Coumadin), 5 MG PO QPM Scheduled PRN Fluticasone Propionate (Nasal) (Flonase Allergy Relief), 1-2 SPRAY PILI DAILY PRN for CONGESTION Furosemide (Lasix), 40 MG PO DAILY PRN for swelling Lorazepam (Lorazepam), 0.5 MG PO BID PRN for Anxiety Polyethylene Glycol 3350 (Miralax), 1 DOSE PO DAILY PRN for Constipation Trazodone Hcl (Desyrel), 50 MG PO HS PRN for Sleep Review of Systems Constitutional: + problem reported (see HPI) Eyes: No worsening of vision, No eye pain, No redness ENT: No unusual epistaxis, No sore throat Respiratory: + problem reported (see HPI) Cardiovascular: + problem reported (see HPI) Abdomen: No pain, No nausea, No vomiting, No diarrhea, No constipation, No GI bleeding Genitourinary - Male: No hematuria, No dysuria Neurologic: No numbness/tingling Endocrine: No excessive thirst Integumentary: + rash (see HPI) Physical Exam Vital Signs Date Time Temp Pulse Resp B/P (MAP) Pulse Ox O2 Delivery O2 Flow Rate FiO2 04/05/17 18:14 96 Room Air 04/05/17 17:25 37.0 51 18 166/68 96 Room Air 04/05/17 16:10 50 04/05/17 16:02 94 Room Air 04/05/17 16:00 37.1 51 18 186/74 94 Room Air 04/05/17 15:58 94 Room Air 04/05/17 14:07 Room Air 04/05/17 14:03 36.7 49 16 170/62 95 Room Air General Appearance: WD/WN, no apparent distress Head: normocephalic, atraumatic Eyes: normal inspection, PERRL, EOMI, sclerae normal ENT: hearing grossly normal, pharynx normal, + pertinent finding (mucous membranes moist. nares bilaterally mild erythema) Neck: supple, no JVD, trachea midline Respiratory/Chest: no respiratory distress, no accessory muscle use, + pertinent finding (+diminished throughout with rales bilateral bases, scattered wheezing ) Cardiovascular: normal peripheral pulses, + bradycardia Abdomen/GI: normal bowel sounds, non tender, soft Back: no CVA tenderness Extremities/Musculoskelatal: no calf tenderness, normal capillary refill, non- tender, + pertinent finding (+pretibial edema 2-3+) Neurologic/Psych: alert, normal mood/affect, oriented x 3 Skin: warm/dry, + rash (groin with erythema, exoriated, satellite lesions) Diagnostics Laboratory Results Results Past 24 Hours Test 04/05/17 15:10 04/05/17 16:00 Range/Units White Blood Count 5.58 4.8-10.8 K/uL Red Blood Count 4.08 4.7-6.1 M/uL Hemoglobin 12.2 14.0-18.0 g/dL Hematocrit 36.5 42-52 % Mean Corpuscular Volume 89.5 80-100 fL Mean Corpuscular Hemoglobin 29.9 25-34 pg Mean Corpuscular Hemoglobin Concent 33.4 32-36 g/dl Platelet Count 156 130-400 K/uL Mean Platelet Volume 10.0 7.4-10.4 fL Neutrophils (%) (Auto) 73.9 % Lymphocytes (%) (Auto) 8.6 % Monocytes (%) (Auto) 16.3 % Eosinophils (%) (Auto) 0.4 % Basophils (%) (Auto) 0.4 % Neutrophils # (Auto) 4.13 1.4-6.5 K/uL Lymphocytes # (Auto) 0.48 1.2-3.4 K/uL Monocytes # (Auto) 0.91 0.11-0.59 K/uL Eosinophils # (Auto) 0.02 0-0.5 K/uL Basophils # (Auto) 0.02 0-0.2 K/uL RDW Standard Deviation 47.2 36.4-46.3 fL RDW Coefficient of Variation 14.3 11.5-14.5 % Immature Granulocyte % (Auto) 0.4 % Immature Granulocyte # (Auto) 0.02 0.00-0.02 K/uL Prothrombin Time 36.2 9.0-12.0 SECONDS Prothromb Time International Ratio 3.5 0.9-1.1 Activated Partial Thromboplast Time 41.3 21.0-31.0 SECONDS Partial Thromboplastin Ratio 1.6 Sodium Level 127 136-145 mmol/L Potassium Level 4.4 3.5-5.1 mmol/L Chloride Level 93 98-107 mmol/L Carbon Dioxide Level 30 21-32 mmol/L Anion Gap 4.0 3-11 mmol/L Blood Urea Nitrogen 18 7-18 mg/dl Creatinine 1.03 0.60-1.40 mg/dl Est Creatinine Clear Calc Drug Dose 68.9 ml/min Estimated GFR () 81.4 Estimated GFR (Non- 70.2 BUN/Creatinine Ratio 17.1 10-20 Random Glucose 92 70-99 mg/dl Calcium Level 8.1 8.5-10.1 mg/dl Total Bilirubin 0.9 0.2-1 mg/dl Aspartate Amino Transf (AST/SGOT) 23 15-37 U/L Alanine Aminotransferase (ALT/SGPT) 36 12-78 U/L Alkaline Phosphatase 125 45-117 U/L Troponin I 0.063 0-0.045 ng/ml Pro-B-Type Natriuretic Peptide 63847 0-1800 pg/ml Total Protein 6.9 6.4-8.2 gm/dl Albumin 3.1 3.4-5.0 gm/dl Globulin 3.8 2.5-4.0 gm/dl Albumin/Globulin Ratio 0.8 0.9-2 Urine Color DK YELLOW Urine Appearance CLEAR CLEAR Urine pH 6.0 4.5-7.5 Urine Specific [place] 1.029 1.000-1.030 Urine Protein 1+ NEG Urine Glucose (UA) NEG NEG Urine Ketones NEG NEG Urine Occult Blood TRACE NEG Urine Nitrite NEG NEG Urine Bilirubin NEG NEG Urine Urobilinogen NEG NEG Urine Leukocyte Esterase NEG NEG Urine WBC (Auto) 1-5 0-5 /hpf Urine RBC (Auto) 10-30 0-4 /hpf Urine Hyaline Casts (Auto) 5-10 0-5 /lpf Urine Epithelial Cells (Auto) 10-20 0-5 /lpf Urine Bacteria (Auto) NEG NEG Microbiology Results 04/05/17 Blood Culture, Ordered Pending 04/05/17 Blood Culture, Ordered Pending Diagnostic Radiology CXR: IMPRESSION: 1. Cardiomegaly with evidence of congestive failure. 2. There are bilateral pleural effusions with associated consolidation. This likely represents atelectasis. Correlate clinically for evidence of superimposed pneumonia. EKG EKG: jigar cardia, rate 50, 1st degree block EKG read by street railway line installer: Sinus bradycardia with 1st degree A-V block Otherwise normal ECG When compared with ECG of 17-MAR-2017 07:29, No significant change Confirmed by ZANDRA GAYTAN ([id number]) on 04/05/2017 4:17:27 PM Impression Assessment and Plan FLUID OVERLOAD Pt with increased LE edema, orthopnea >1 month. cough and SOB past 6 days. Pt unsure if he has been taking lasix (he has had meds switched around from different facilities). Pt 93-96% on RA. R: 18. BNP: 48539. CXR: Cardiomegaly with evidence of congestive failure. There are bilateral pleural effusions with associated consolidation. Likely atelectasis. Correlate clinically for evidence of superimposed pneumonia. -lasix 20mg IV BID -monitor I&O's -trend electrolytes -CXR in am -echo -cardiology consult COUGH/SOB Pt with fluid overload. COPD exacerbation, vs Possible pneumonia vs influenza. Reported pt may be choking? Pt denies choking. Afebrile in ER. 93-96% on RA. R: 18. No leukocytosis. -pending flu swab, blood cultures, MRSA swab -Xopenex/Atrovent nebs -Zosyn -prednisone 40mg po -O2 per protocol -repeat CBC, PRP in am -CXR in am -speech to evaluate for possible aspiration/swallowing difficulties MILDLY ELEVATED TROPONIN Troponin 0.063. Suspect demand ischemia from fluid overload -trend enzymes -repeat EKG -echo -continue atorvastatin, ASA -holding beta carrington at this time secondary to bradycardia -Nitro prn CP and repeat EKG for CP PAROXYSMAL A-FIB bradycardia at this time with 1st degree block noted on EKG -INR: 3.5. Will hold coumadin dose tonight and repeat INR tomorrow -hold metoprolol at this time -continue amiodarone -appreciate cardiology in put BRADYCARDIA bradycardia at this time with 1st degree block noted on EKG -hold metoprolol at this time HTN BP: 166/68. Pt receiving lasix. continue to monitor -continue lisinopril INTERTRIGO CANDIDIASIS -nystatin powder WEAKNESS Pt with progressive weakness s/p R TKA in 02/18. -PT/OT GERD -continue H2 carrington BPH -continue flomax DVT PROPHYLAXIS -coumadin DISPOSITION -admit tele -DNR/DNI as per discussion with pt -Follows with Dr Roldan for routine care Pt was seen with Dr Lewis. See addendum Level of Care Telemetry Advanced Directives Existing Living Will: Yes Existing Power of Rack Cleaner: Yes Resuscitation Status DO NOT RESUSCITATE VTE Prophylaxis VTE Risk Assessment Done? Y/N: Yes Risk Level: Moderate Given or contraindicated: Warfarin (Coumadin) Additional Copies To Olaf Roldan III, M.D.
[2017-04-05] MEDS ORDERED: PIPERACILL/TAZOBAC IV 3.375 GM in DEXTROSE 5% 100ML IV ONE (19:30)
[2017-04-05 20:02] LABS: INFLUENZA B ANTIGEN Neg for Influ B (NEG)
[2017-04-05] MEDS: IPRATROPIUM BROMIDE NEB SOLN 0.02% 2.5 ML VIAL INH SCH (20:26)
[2017-04-05] MEDS: NYSTATIN POWDER 15GM BTL EXT SCH (20:26)
[2017-04-05 20:28] VITALS: PULSE 105; O2SAT 90
[2017-04-05] MEDS: LEVALBUTEROL 1.25MG/0.5ML NEB INH SCH (20:28)
[2017-04-05] MEDS ORDERED: LEVALBUTEROL/IPRATROPIUM NEB INH SCH (21:00)
[2017-04-05] MEDS: SALMETEROL XINAFOATE 50MCG 28 BLISTER INH INH SCH (21:36)
[2017-04-05] MEDS: MAGNESIUM OXIDE 400 MG TAB PO SCH (21:37)
[2017-04-05] MEDS: FAMOTIDINE 20 MG TAB PO SCH (21:38)
[2017-04-05] MEDS: ATORVASTATIN 20 MG TAB PO SCH (21:39)
[2017-04-05] MEDS: DOCUSATE SODIUM 100 MG CAP PO SCH (21:39)
[2017-04-05] MEDS: POLYETHYLENE (MIRALAX) 17 GM PACK PO PRN (21:44)
[2017-04-05] MEDS: TRAZODONE HCL 50 MG TAB PO PRN (21:48)
[2017-04-05 23:21] VITALS: BP 162/68; PULSE 51; TEMP 36.8; O2SAT 91
--- NOTE | 2017-04-05 23:31 | EMERGENCY ROOM VISIT NOTE ---
History Report prepared by Magdiel: Tonya Ayoub Under the Supervision of: Dr. Gonzales Starr D.O. First contact with patient: 15:09 Chief Complaint: RESPIRATORY PROBLEMS Stated Complaint: A FIB, PNEUMONIA, ENLARGED HEART, Nursing Triage Summary: Patient with cough since Sunday, seen by PCP and had chest XRAY showing pneumonia and fluid on lungs and enlarged heart per Sister. From [facility] History of Present Illness The patient is a 76 year old male who presents to the Emergency Room with complaints of persistent cough starting 6 days ago. The patient comes from [facility]. He is currently wheelchair bound. He had a knee replacement in February. He had been well prior to that. He had a chest x-ray today that showed bilateral effusion and pneumonia. He has had a productive cough and confusion. He has been coughing up mostly clear/yellow sputum. He has had some blood in his sputum. He did have some SOB with his cough. He currently does not feel SOB. He denies any chest pain, urinary symptoms, abdominal pain, or fever. He notes that he has been constipated. He is on Coumadin. He denies any history of heart failure. He is a former smoker. He currently has a yeast infection in his groin. Source of History: patient Onset: 6 days ago Position: other (global) Quality: other (cough) Timing: other (persistent) Associated Symptoms: No fevers, No chest pain, No SOB, No abdominal pain, No urinary symptoms Review of Systems See HPI for pertinent positives & negatives. A total of 10 systems reviewed and were otherwise negative. Past Medical & Surgical Medical Problems: (1) Anxiety (2) BPH (benign prostatic hyperplasia) (3) CAD (coronary artery disease) (4) Contusion of multiple sites (5) COPD (chronic obstructive pulmonary disease) (6) Diverticulosis (7) Dyslipidemia (8) Fall (9) Fluid overload (10) GERD (gastroesophageal reflux disease) (11) Laceration of left elbow (12) Neuropathy (13) Paroxysmal A-fib (14) SOB (shortness of breath) (15) TIA (transient ischemic attack) Surgical Problems: (1) H/O arthroscopic knee surgery (2) H/O thoracic aortic aneurysm repair (3) S/P CABG x 1 Family History Stroke FATHER MOTHER Social History Smoking Status: Former Smoker Marital Status: Occupation Status: retired Current/Historical Medications Scheduled Amiodarone HCl (Amiodarone HCl), 200 MG PO QAM Aspirin (Aspirin Chewable), 81 MG PO QAM Atorvastatin (Lipitor), 20 MG PO HS Docusate Sodium (Docusate Sodium), 100 MG PO BID Famotidine (Famotidine), 20 MG PO BID Lisinopril (Lisinopril), 1 TAB PO DAILY Magnesium Oxide (Mag-Ox), 400 MG PO BID Metoprolol Succinate (Metoprolol Succinate ER), 100 MG PO QAM Potassium Chloride Microencaps (Potassium Chloride Cr), 10 MEQ PO QAM Salmeterol Xinafoate (Serevent Diskus), 1 PUFF INH BID Tamsulosin Hcl (Flomax), 0.4 MG PO DAILY Warfarin Sodium (Coumadin), 5 MG PO QPM Scheduled PRN Fluticasone Propionate (Nasal) (Flonase Allergy Relief), 1-2 SPRAY PILI DAILY PRN for CONGESTION Furosemide (Lasix), 40 MG PO DAILY PRN for swelling Lorazepam (Lorazepam), 0.5 MG PO BID PRN for Anxiety Polyethylene Glycol 3350 (Miralax), 1 DOSE PO DAILY PRN for Constipation Trazodone Hcl (Desyrel), 50 MG PO HS PRN for Sleep Allergies Coded Allergies: Guaifenesin (Verified Allergy, Unknown, GETS REALLY SICK FROM MUCINEX, 01/09/17) Physical Exam Vital Signs Date Time Temp Pulse Resp B/P (MAP) Pulse Ox O2 Delivery O2 Flow Rate FiO2 04/05/17 17:25 37.0 51 18 166/68 96 Room Air 04/05/17 16:10 50 04/05/17 16:02 94 Room Air 04/05/17 16:00 37.1 51 18 186/74 94 Room Air 04/05/17 15:58 94 Room Air 04/05/17 14:07 Room Air 04/05/17 14:03 36.7 49 16 170/62 95 Room Air Physical Exam GENERAL: Sitting up in bed, disheveled, nontoxic, talking in full sentences with a dry nonproductive cough EYE EXAM: normal conjunctiva. OROPHARYNX: no exudate, no erythema, lips, buccal mucosa, and tongue normal and mucous membranes are moist NECK: supple, no nuchal rigidity, no adenopathy, non-tender, no JVD LUNGS: Diffuse wheezing bilaterally. Normal chest wall mechanics HEART: no murmurs, S1 normal and S2 normal ABDOMEN: abdomen soft, non-tender, normo-active bowel sounds, no masses, no rebound or guarding. BACK: Back is symmetrical on inspection and there is no deformity, no midline tenderness, no CVA tenderness. SKIN: no rashes and no bruising UPPER EXTREMITIES: upper extremities are grossly normal. LOWER EXTREMITIES: No pitting edema. Calves equal bilaterally. NEURO EXAM: Awake, alert, and oriented to person, place, but not year. Normal sensorium, cranial nerves II-XII grossly intact, normal speech, no gross weakness of arms, no gross weakness of legs. Medical Decision & Procedures ER Provider Diagnostic Interpretation: Xray results as stated below per my and the radiologist's interpretation: SINGLE VIEW CHEST CLINICAL HISTORY: Dyspnea. FINDINGS: An AP, portable, upright chest radiograph is compared to study dated 05/07/2016. The examination is degraded by portable technique and patient rotation. The patient is status post midline sternotomy. The heart is enlarged and there is atherosclerotic calcification of the thoracic and. There is pulmonary vascular congestion. There are layering pleural effusions with bibasilar consolidation. No pneumothorax is seen. The skeletal structures are osteopenic. The bony thorax is grossly intact. IMPRESSION: 1. Cardiomegaly with evidence of congestive failure. 2. There are bilateral pleural effusions with associated consolidation. This likely represents atelectasis. Correlate clinically for evidence of superimposed pneumonia. Electronically signed by: Robert Hernandez M.D. 04/05/2017 3:48 PM Dictated Date/Time: 04/05/2017 3:47 PM Laboratory Results 04/05/17 15:10 Red Blood Count 4.08, Mean Corpuscular Volume 89.5, Mean Corpuscular Hemoglobin 29.9, Mean Corpuscular Hemoglobin Concent 33.4, Mean Platelet Volume 10.0, Neutrophils (%) (Auto) 73.9, Lymphocytes (%) (Auto) 8.6, Monocytes (%) (Auto) 16.3, Eosinophils (%) (Auto) 0.4, Basophils (%) (Auto) 0.4, Neutrophils # (Auto ) 4.13, Lymphocytes # (Auto) 0.48, Monocytes # (Auto) 0.91, Eosinophils # (Auto ) 0.02, Basophils # (Auto) 0.02 04/05/17 15:10 Test 04/05/17 15:10 04/05/17 16:00 White Blood Count 5.58 K/uL (4.8-10.8) Red Blood Count 4.08 M/uL (4.7-6.1) Hemoglobin 12.2 g/dL (14.0-18.0) Hematocrit 36.5 % (42-52) Mean Corpuscular Volume 89.5 fL (80-100) Mean Corpuscular Hemoglobin 29.9 pg (25-34) Mean Corpuscular Hemoglobin Concent 33.4 g/dl (32-36) Platelet Count 156 K/uL (130-400) Mean Platelet Volume 10.0 fL (7.4-10.4) Neutrophils (%) (Auto) 73.9 % Lymphocytes (%) (Auto) 8.6 % Monocytes (%) (Auto) 16.3 % Eosinophils (%) (Auto) 0.4 % Basophils (%) (Auto) 0.4 % Neutrophils # (Auto) 4.13 K/uL (1.4-6.5) Lymphocytes # (Auto) 0.48 K/uL (1.2-3.4) Monocytes # (Auto) 0.91 K/uL (0.11-0.59) Eosinophils # (Auto) 0.02 K/uL (0-0.5) Basophils # (Auto) 0.02 K/uL (0-0.2) RDW Standard Deviation 47.2 fL (36.4-46.3) RDW Coefficient of Variation 14.3 % (11.5-14.5) Immature Granulocyte % (Auto) 0.4 % Immature Granulocyte # (Auto) 0.02 K/uL (0.00-0.02) Prothrombin Time 36.2 SECONDS (9.0-12.0) Prothromb Time International Ratio 3.5 (0.9-1.1) Activated Partial Thromboplast Time 41.3 SECONDS (21.0-31.0) Partial Thromboplastin Ratio 1.6 Anion Gap 4.0 mmol/L (3-11) Est Creatinine Clear Calc Drug Dose 68.9 ml/min Estimated GFR () 81.4 Estimated GFR (Non- 70.2 BUN/Creatinine Ratio 17.1 (10-20) Calcium Level 8.1 mg/dl (8.5-10.1) Total Bilirubin 0.9 mg/dl (0.2-1) Aspartate Amino Transf (AST/SGOT) 23 U/L (15-37) Alanine Aminotransferase (ALT/SGPT) 36 U/L (12-78) Alkaline Phosphatase 125 U/L (45-117) Pro-B-Type Natriuretic Peptide 05717 pg/ml (0-1800) Total Protein 6.9 gm/dl (6.4-8.2) Albumin 3.1 gm/dl (3.4-5.0) Globulin 3.8 gm/dl (2.5-4.0) Albumin/Globulin Ratio 0.8 (0.9-2) Urine Color DK YELLOW Urine Appearance CLEAR (CLEAR) Urine pH 6.0 (4.5-7.5) Urine Specific [place] 1.029 (1.000-1.030) Urine Protein 1+ (NEG) Urine Glucose (UA) NEG (NEG) Urine Ketones NEG (NEG) Urine Occult Blood TRACE (NEG) Urine Nitrite NEG (NEG) Urine Bilirubin NEG (NEG) Urine Urobilinogen NEG (NEG) Urine Leukocyte Esterase NEG (NEG) Urine WBC (Auto) 1-5 /hpf (0-5) Urine RBC (Auto) 10-30 /hpf (0-4) Urine Hyaline Casts (Auto) 5-10 /lpf (0-5) Urine Epithelial Cells (Auto) 10-20 /lpf (0-5) Urine Bacteria (Auto) NEG (NEG) Laboratory results per my review. Medications Administered Medications (Trade) Dose Ordered Sig/Martine Route Start Time Stop Time Status Last Admin Dose Admin Furosemide 20 mg/ Syringe 2 ml @ 4 mls/min ONE ONCE IV 04/05/17 16:15 04/05/17 16:16 DC 04/05/17 16:33 4 MLS/MIN Aspirin (Aspirin Chew) 324 mg NOW STAT PO 04/05/17 16:13 04/05/17 16:14 DC 04/05/17 16:27 324 MG Levofloxacin (Levaquin / D5W) 750 mg NOW STAT IV 04/05/17 16:13 04/05/17 16:14 DC 04/05/17 16:26 750 MG Polyethylene (Miralax Powder Packet) 17 gm DAILY PRN PO 04/05/17 17:30 05/05/17 17:29 04/05/17 21:44 17 GM ECG Indication: SOB/dyspnea Rate (beats per minute): 50 Rhythm: sinus bradycardia Findings: 1st degree AV block, no ectopy, other (normal axis) Change: Patient's electrocardiogram interpreted by me. ED Course ED COURSE: Vital signs were reviewed and showed hypertension. The patients medical record was reviewed The above diagnostic studies were performed and reviewed. ED treatments and interventions as stated above. 1513: The patient was evaluated in room A4B. A complete history and physical examination was performed. 1613: Levofloxacin 750 mg IV, Aspirin 324 mg PO. 1614: Upon reevaluation, the patient is resting comfortably. I discussed my findings with the patient and he understands and agrees with the treatment plan. Based on the patients age, coexisting illnesses, exam and lab findings the decision to treat as an inpatient was made. The patient remained stable while under my care. The patient will be evaluated for further management. 1615: Furosemide 20 mg/Syringe 2 ml @ 4 mls/min IV. 1619: I reviewed the patient's case with HEATHER Carlosist. She will evaluate the patient for further management. Medical Decision Differential diagnoses includes but is not limited to pneumonia, bronchitis, COPD/Asthma exacerbation, pneumothorax, pulmonary embolism, congestive heart failure, acute coronary syndrome Patient is a 76-year-old male sent in from PCPs office for shortness of breath associated with coughing. He is on Coumadin which is therapeutic. CBC was unremarkable. Sodium was slightly low 1.7. Troponin was elevated at 0.06. BNP was elevated at 33,000. Influenza AMB were negative. A stone symptoms I do believe this consistent with CHF. I did cover him with Levaquin as they question possible opacities on chest x-ray. He was also given aspirin and some diuretic. He was admitted to internal medicine for further workup. He was updated at bedside. Medication Reconcilliation Current Medication List: was personally reviewed by me Blood Pressure Screening Patient's blood pressure: Elevated blood pressure Blood pressure disposition: Elevated BP felt to be situational Consults Time Called: 1612 Consulting Physician: HEATHER Carlos hospitalist Returned Call: 1619 I reviewed the patient's case with her. She will evaluate the patient for further management. Impression Primary Impression: CHF (congestive heart failure) Additional Impression: Elevated troponin Scribe Attestation The scribe's documentation has been prepared under my direction and personally reviewed by me in its entirety. I confirm that the note above accurately reflects all work, treatment, procedures, and medical decision making performed by me. Departure Information Dispostion Being Evaluated By Hospitalist Referrals CELESTINO RODRIGUEZ (PCP) Patient Instructions My [facility] Problem Qualifiers Primary Impression: CHF (congestive heart failure) Congestive heart failure type: unspecified Congestive heart failure chronicity: unspecified Qualified Codes: I50.9 - Heart failure, unspecified
[2017-04-06] VITALS (12 sets, daily range): BP systolic 125–177; BP diastolic 54–74; PULSE 50–83; TEMP 36.6–36.7; O2SAT 88–99
[2017-04-06] MEDS: PIPERACILL/TAZOBAC IV 3.375 GM in DEXTROSE 5% 100ML IV SCH ×2 (02:11→09:58)
[2017-04-06] MEDS: IPRATROPIUM BROMIDE NEB SOLN 0.02% 2.5 ML VIAL INH SCH ×4 (02:14→20:14)
[2017-04-06] MEDS: LEVALBUTEROL 1.25MG/0.5ML NEB INH SCH ×4 (02:14→20:14)
[2017-04-06 03:16] LABS: HEMATOCRIT 34.4 % (42-52); HEMOGLOBIN 11.5 g/dL (14.0-18.0); MEAN CELL VOLUME 88.4 fL (80-100); MEAN CORPUSCULAR HEMOGLOBIN 29.6 pg (25-34); MEAN CORPUSCULAR HGB CONC 33.4 g/dl (32-36); MEAN PLATELET VOLUME 9.6 fL (7.4-10.4); PLATELET COUNT 124 K/uL (130-400); RED CELL DISTRIBUTION WIDTH CV 14.2 % (11.5-14.5); RED CELL DISTRIBUTION WIDTH SD 46.2 fL (36.4-46.3); WHITE BLOOD COUNT 3.53 K/uL (4.8-10.8)
[2017-04-06 03:34] LABS: INR 3.3 (0.9-1.1)
[2017-04-06 03:47] LABS: CALCIUM 7.9 mg/dl (8.5-10.1); CREATININE 1.08 mg/dl (0.60-1.40); POTASSIUM 3.9 mmol/L (3.5-5.1)
[2017-04-06] MEDS: SALMETEROL XINAFOATE 50MCG 28 BLISTER INH INH SCH ×2 (08:22→20:36)
[2017-04-06] MEDS: NYSTATIN POWDER 15GM BTL EXT SCH ×3 (08:22→20:36)
[2017-04-06] MEDS: ASPIRIN 81 MG ECTAB PO SCH (08:23)
[2017-04-06] MEDS: FUROSEMIDE INJ 20 MG in SYRINGE 0 ML IV SCH ×2 (08:23→16:57)
[2017-04-06] MEDS: LISINOPRIL 40 MG TAB PO SCH (08:23)
[2017-04-06] MEDS: FAMOTIDINE 20 MG TAB PO SCH ×2 (08:23→20:36)
[2017-04-06] MEDS: AMIODARONE 200 MG TAB PO SCH (08:23)
[2017-04-06] MEDS: DOCUSATE SODIUM 100 MG CAP PO SCH ×2 (08:23→20:36)
[2017-04-06] MEDS: TAMSULOSIN HCL 0.4 MG CAP PO SCH (08:24)
[2017-04-06] MEDS: POTASSIUM CHLORIDE 10 MEQ TABCR PO SCH (08:24)
[2017-04-06] MEDS: MAGNESIUM OXIDE 400 MG TAB PO SCH ×2 (08:24→20:36)
--- NOTE | 2017-04-06 08:42 | DIAGNOSTIC IMAGING REPORT ---
CHEST 2 VIEWS ROUTINE CLINICAL HISTORY: cough, sob COMPARISON STUDY: 04/05/2017 FINDINGS: There is calcification and diffuse ectasia of the aorta. The heart is enlarged. There are postsurgical changes of a midline sternotomy. There are bilateral pleural effusions with bibasal airspace opacities, likely atelectatic although a superimposed inflammatory process could appear similar. There is mild pulmonary vascular congestion.[ IMPRESSION: 1. Cardiomegaly and radiographic evidence of mild congestive failure with bilateral pleural effusions 2. Associated bibasal airspace opacities likely atelectatic, although a superimposed infectious/inflammatory process could appear similar 3. Aortic ectasia Electronically signed by: Brijesh Zamora M.D. 04/06/2017 8:40 AM Dictated Date/Time: 04/06/2017 8:39 AM
--- NOTE | 2017-04-06 13:53 | Cardiology Consultation ---
Cardiology Consultation Date of Service Apr 06, 2017. Cardiology Consultation History: This is a 76-year-old male patient who usually follows with Dr. Soria through the [facility]. He has a history of previous coronary artery bypass surgery in 2016. He also has a history of paroxysmal atrial fibrillation on chronic amiodarone and Coumadin. He is status post descending thoracic aortic aneurysm repair. The patient earlier this year underwent a total knee replacement. After returning home he was having frequent falls and actually fell in the parking lot of his apartment building sustaining a laceration of his elbow. He was brought to the emergency department where he received sutures. The patient then returned home and shortly thereafter started to develop a productive cough. He was brought to the hospital and admitted. He is now being treated for either community-acquired pneumonia or the flu. Serology for influenza is still pending. He may have had some fluid retention on admission. He was given 1 dose of IV Lasix and had a large diuresis. Currently he looks comfortable. He denies shortness of breath. He still has a productive cough. He's had no fever or chills. No chest pain or heart palpitations. Allergies: To Robitussin Current Inpatient Medications Medications (Trade) Dose Ordered Sig/Martine Route Start Time Stop Time Status Last Admin Dose Admin Acetaminophen (Tylenol Tab) 650 mg Q4H PRN PO 04/05/17 17:30 05/05/17 17:29 Nitroglycerin (Nitrostat Tab) 0.4 mg UD PRN SL 04/05/17 17:30 05/05/17 17:29 Polyethylene (Miralax Powder Packet) 17 gm DAILY PRN PO 04/05/17 17:30 05/05/17 17:29 04/05/17 21:44 17 GM Nystatin (Mycostatin Powder) 1 appln TID EXT 04/05/17 21:00 05/05/17 20:59 04/06/17 08:22 1 APPLN Ipratropium [place] (Atrovent 0.02% 0.5MG/2.5ML Neb) 0.5 mg Q6R INH 04/05/17 21:00 05/05/17 20:59 04/06/17 07:05 0.5 MG Levalbuterol (Xopenex 1.25MG/ 0.5ML Neb) 1.25 mg Q6R INH 04/05/17 21:00 05/05/17 20:59 04/06/17 07:05 1.25 MG Ipratropium [place] (Atrovent 0.02% 0.5MG/2.5ML Neb) 0.5 mg Q4H PRN INH 04/05/17 18:00 05/05/17 17:59 Levalbuterol (Xopenex 0.63 Mg/ 3 Ml Neb) 0.63 mg Q4H PRN INH 04/05/17 18:00 05/05/17 17:59 Furosemide 20 mg/ Syringe 2 ml @ 4 mls/min BID17 IV 04/06/17 09:00 05/06/17 08:59 04/06/17 08:23 4 MLS/MIN Prednisone (PredniSONE TAB) 40 mg DAILY PO 04/05/17 18:30 05/05/17 18:29 04/06/17 08:24 40 MG Amiodarone HCl (Cordarone Tab) 200 mg QAM PO 04/06/17 09:00 05/06/17 08:59 04/06/17 08:23 200 MG Aspirin (Ecotrin Tab) 81 mg QAM PO 04/06/17 09:00 05/06/17 08:59 04/06/17 08:23 81 MG Atorvastatin Calcium (Lipitor Tab) 20 mg HS PO 04/05/17 21:00 05/05/17 20:59 04/05/17 21:39 20 MG Docusate Sodium (coLACE CAP) 100 mg BID PO 04/05/17 21:00 05/05/17 20:59 04/06/17 08:23 100 MG Famotidine (Pepcid Tab) 20 mg BID PO 04/05/17 21:00 05/05/17 20:59 04/06/17 08:23 20 MG Fluticasone Propionate (Flonase Nasal [place]) 2 sprays DAILY PRN PILI 04/05/17 18:30 05/05/17 18:29 Lisinopril (Zestril Tab) 40 mg DAILY PO 04/06/17 09:00 05/06/17 08:59 04/06/17 08:23 40 MG Lorazepam (Ativan Tab) 0.5 mg BID PRN PO 04/05/17 18:30 05/05/17 18:29 Magnesium Oxide (Mag-Ox Tab) 400 mg BID PO 04/05/17 21:00 05/05/17 20:59 04/06/17 08:24 400 MG Potassium Chloride (Klor-Con M10) 10 meq QAM PO 04/06/17 09:00 05/06/17 08:59 04/06/17 08:24 10 MEQ Salmeterol Xinafoate (Serevent Diskus Inh) 1 puffs BID INH 04/05/17 21:00 05/05/17 20:59 04/06/17 08:22 1 PUFFS Tamsulosin HCl (Flomax Cap) 0.4 mg DAILY PO 04/06/17 09:00 05/06/17 08:59 04/06/17 08:24 0.4 MG Trazodone HCl (Desyrel Tab) 50 mg HS PRN PO 04/05/17 18:30 05/05/17 18:29 04/05/17 21:48 50 MG Miscellaneous Information (Consult) 1 ea UD PRN N/A 04/05/17 19:15 04/12/17 19:14 Piperacillin Sod/ Tazobactam Sod 3.375 gm/Dextrose 115 ml @ 28.75 mls/ hr Q8H IV 04/06/17 02:00 04/12/17 17:59 04/06/17 09:58 28.75 MLS/HR Benzonatate (Tessalon Perles Cap) 100 mg Q8H PRN PO 04/06/17 01:45 05/06/17 01:44 Past medical history: As outlined above the patient is status post repair of an ascending thoracic aneurysm. He also underwent coronary artery bypass surgery receiving one vein graft to the PDA in November 2015. He has a history of paroxysmal fibrillation, hypertension, history of TIAs, tobacco associated lung disease Social history: Patient stopped smoking approximately 10 years ago. Family medical history: Noncontributory General: The patient denies weight change, night sweats, fever, chills. Head: The patient denies headache and prior head trauma. Cardiovascular: The patient denies chest pain or chest discomfort, dyspnea on exertion, palpitations, PND, orthopnea, edema, spontaneous shortness of breath, syncope and near syncope. Pulmonary: The patient denies cough, wheeze, pleurisy, hemoptysis, sputum, and excessive snoring. Gastrointestinal: The patient denies nausea, vomiting, diarrhea, constipation, bloating, hematemesis, hematochezia, and abdominal pain. Skin: The patient denies diaphoresis and rash. Musculoskeletal: The patient denies joint pain, joint swelling, myalgia, back pain, neck pain and prior injuries. Neurological: The patient denies prior stroke and seizures Vital Signs Past 12 Hours Date Time Temp Pulse Resp B/P (MAP) Pulse Ox O2 Delivery O2 Flow Rate FiO2 04/06/17 12:00 Room Air 04/06/17 09:03 36.7 62 18 95 Room Air 04/06/17 08:00 Room Air 04/06/17 07:46 36.7 50 20 177/64 (101) 95 04/06/17 07:09 50 16 93 Room Air 04/06/17 04:00 36.7 51 18 169/63 (98) 88 Room Air 04/06/17 04:00 90 Room Air 04/06/17 02:14 52 16 93 Room Air General Appearance: Alert and Oriented x3. NAD. Head: Normocephalic Atraumatic. Eyes: PERRLA, EOMI, conjunctiva and sclera clear Neck: Supple. No carotid bruits noted. No JVD. No HJD. Respiratory: Breath sounds clear to auscultation bilaterally. No w/r/r. Cardiovascular: Reg rate and rhythm. S1 and S2 noted. No murmurs, rubs, gallops. PMI non displace. Abdomen: Normal bowel sounds, soft nontender. no abdominal bruits. Extremities: No edema, no clubbing or cyanosis. distal pulses 2/4 bilaterally. Neuro: No focal deficits. Psychiatric: Normal affect. Last 24 Hours Test 04/05/17 15:10 04/05/17 16:00 04/05/17 19:05 04/05/17 20:49 White Blood Count 5.58 K/uL Red Blood Count 4.08 M/uL Hemoglobin 12.2 g/dL Hematocrit 36.5 % Mean Corpuscular Volume 89.5 fL Mean Corpuscular Hemoglobin 29.9 pg Mean Corpuscular Hemoglobin Concent 33.4 g/dl Platelet Count 156 K/uL Mean Platelet Volume 10.0 fL Neutrophils (%) (Auto) 73.9 % Lymphocytes (%) (Auto) 8.6 % Monocytes (%) (Auto) 16.3 % Eosinophils (%) (Auto) 0.4 % Basophils (%) (Auto) 0.4 % Neutrophils # (Auto) 4.13 K/uL Lymphocytes # (Auto) 0.48 K/uL Monocytes # (Auto) 0.91 K/uL Eosinophils # (Auto) 0.02 K/uL Basophils # (Auto) 0.02 K/uL RDW Standard Deviation 47.2 fL RDW Coefficient of Variation 14.3 % Immature Granulocyte % (Auto) 0.4 % Immature Granulocyte # (Auto) 0.02 K/uL Prothrombin Time 36.2 SECONDS Prothromb Time International Ratio 3.5 Activated Partial Thromboplast Time 41.3 SECONDS Partial Thromboplastin Ratio 1.6 Sodium Level 127 mmol/L Potassium Level 4.4 mmol/L Chloride Level 93 mmol/L Carbon Dioxide Level 30 mmol/L Anion Gap 4.0 mmol/L Blood Urea Nitrogen 18 mg/dl Creatinine 1.03 mg/dl Est Creatinine Clear Calc Drug Dose 68.9 ml/min Estimated GFR () 81.4 Estimated GFR (Non- 70.2 BUN/Creatinine Ratio 17.1 Random Glucose 92 mg/dl Calcium Level 8.1 mg/dl Total Bilirubin 0.9 mg/dl Aspartate Amino Transf (AST/SGOT) 23 U/L Alanine Aminotransferase (ALT/SGPT) 36 U/L Alkaline Phosphatase 125 U/L Troponin I 0.063 ng/ml 0.059 ng/ml Pro-B-Type Natriuretic Peptide 41909 pg/ml Total Protein 6.9 gm/dl Albumin 3.1 gm/dl Globulin 3.8 gm/dl Albumin/Globulin Ratio 0.8 Urine Color DK YELLOW Urine Appearance CLEAR Urine pH 6.0 Urine Specific [place] 1.029 Urine Protein 1+ Urine Glucose (UA) NEG Urine Ketones NEG Urine Occult Blood TRACE Urine Nitrite NEG Urine Bilirubin NEG Urine Urobilinogen NEG Urine Leukocyte Esterase NEG Urine WBC (Auto) 1-5 /hpf Urine RBC (Auto) 10-30 /hpf Urine Hyaline Casts (Auto) 5-10 /lpf Urine Epithelial Cells (Auto) 10-20 /lpf Urine Bacteria (Auto) NEG Influenza Type A Antigen Neg for Influ A Influenza Type B Antigen Neg for Influ B Osmolality 270 mOsm/kg Test 04/05/17 22:25 04/06/17 03:00 Urine Osmolality 381 mOms/kg White Blood Count 3.53 K/uL Red Blood Count 3.89 M/uL Hemoglobin 11.5 g/dL Hematocrit 34.4 % Mean Corpuscular Volume 88.4 fL Mean Corpuscular Hemoglobin 29.6 pg Mean Corpuscular Hemoglobin Concent 33.4 g/dl RDW Standard Deviation 46.2 fL RDW Coefficient of Variation 14.2 % Platelet Count 124 K/uL Mean Platelet Volume 9.6 fL Prothrombin Time 33.4 SECONDS Prothromb Time International Ratio 3.3 Sodium Level 127 mmol/L Potassium Level 3.9 mmol/L Chloride Level 93 mmol/L Carbon Dioxide Level 28 mmol/L Anion Gap 6.0 mmol/L Blood Urea Nitrogen 17 mg/dl Creatinine 1.08 mg/dl Est Creatinine Clear Calc Drug Dose 67.5 ml/min Estimated GFR () 76.9 Estimated GFR (Non- 66.3 BUN/Creatinine Ratio 16.1 Random Glucose 112 mg/dl Calcium Level 7.9 mg/dl Magnesium Level 1.9 mg/dl Troponin I 0.036 ng/ml Impression: 1. Possible community-acquired pneumonia versus influenza 2. Mild congestive heart failure 3. Paroxysmal atrial fibrillation 4. Status post CABG and a descending thoracic aortic aneurysm repair 2005 5. Tobacco associated lung disease Recommendations: The patient is receiving antibiotics which is appropriate. The influenza titers are still pending. I agree with current treatment including the increase in diuretics. We will follow along with you during his hospital stay.
--- NOTE | 2017-04-06 15:30 | ECHOCARDIOGRAM REPORT ---
*NOTICE TO RECEIVING REPUBLICAN AGENCY This information is strictly Confidential and protected under [place] law. [place] law prohibits you from making any further disclosure of this information unless further disclosure is expressly permitted by the written consent of the person to whom it pertains or is authorized by law. A general authorization for the release of medical or other information is not sufficient for this purpose. Hospital accepts no responsibility if the information is made available to any other person, INCLUDING THE PATIENT. Interpretation Summary * Name: CATIA WOODWARD JR Study Date: 04/06/2017 07:10 AM BP: 169/63 mmHg * Patient Location: [facility]\S\N284\S\2 HR: 50 * : 1940 (M/d/yyyy) Gender: Male Height: 74 in * Age: 76 yrs Ethnicity: CA Weight: 180 lb * Ordering Physician: Anabell Figueredo * Referring Physician: Zora Cifuentes * Performed By: Mine Kong RDCS * * Reason For Study: Congestive Heart Failure * BSA: 2.1 m2 * -- Conclusions -- * Aortic valve sclerosis mild, without significant aortic valvular stenosis. * The left ventricle is normal in size. * Ejection Fraction = 55-60%. * The right ventricular systolic function is normal. * The left atrium is moderately dilated. * The right atrium is mildly dilated. * No significant valvular pathology. Procedure Details * A complete two-dimensional transthoracic echocardiogram was performed (2D, M-mode, Doppler and color flow Doppler). Left Ventricle * The left ventricle is normal in size. * There is normal left ventricular wall thickness. * Ejection Fraction = 55-60%. * Left ventricular systolic function is normal. * The left ventricular wall motion is normal. Right Ventricle * The right ventricle is normal size. * The right ventricular systolic function is normal. Atria * The left atrium is moderately dilated. * The right atrium is mildly dilated. * The interatrial septum is intact with no evidence for an atrial septal defect. Mitral Valve * There is mild to moderate mitral annular calcification. * The mitral valve leaflets appear thickened, but open well. * There is trace mitral regurgitation. Tricuspid Valve * The tricuspid valve is not well visualized, but is grossly normal. * Significant tricuspid regurgitation is absent. Aortic Valve * Aortic valve sclerosis mild, without significant aortic valvular stenosis. * Trace aortic regurgitation. Pulmonic Valve * The pulmonic valve is not well visualized. * There is no significant pulmonary regurgitation. Great Vessels * The aortic root is not well visualized but is probably normal size. Pericardium/Pleural * There is no pericardial effusion. MMode 2D Measurements and Calculations IVSd 1.1 cm IVSs 1.3 cm LVIDd 5.0 cm LVIDs 3.3 cm LVPWd 1.1 cm LVPWs 1.9 cm IVS/LVPW 0.95 FS 34.1 % EDV(Teich) 120.7 ml ESV(Teich) 44.9 ml EF(Teich) 62.8 % EDV(cubed) 128.4 ml ESV(cubed) 36.8 ml EF(cubed) 71.4 % % IVS thick 20.0 % % LVPW thick 71.3 % LV mass(C)d 212.7 grams LV mass(C)dI 102.3 grams/m\S\2 LV mass(C)s 206.1 grams LV mass(C)sI 99.2 grams/m\S\2 SV(Teich) 75.8 ml SI(Teich) 36.5 ml/m\S\2 SV(cubed) 91.6 ml SI(cubed) 44.1 ml/m\S\2 Ao root diam 2.9 cm Ao root area 6.5 cm\S\2 LA dimension 5.5 cm LA/Ao 1.9 LVAd ap4 43.6 cm\S\2 LVLd ap4 9.4 cm EDV(MOD-sp4) 172.8 ml EDV(sp4-el) 171.0 ml LVAs ap4 26.2 cm\S\2 LVLs ap4 8.2 cm ESV(MOD-sp4) 75.6 ml ESV(sp4-el) 70.8 ml EF(MOD-sp4) 56.2 % EF(sp4-el) 58.6 % LVAd ap2 47.7 cm\S\2 LVLd ap2 9.7 cm EDV(MOD-sp2) 198.4 ml EDV(sp2-el) 198.4 ml LVAs ap2 25.6 cm\S\2 LVLs ap2 7.7 cm ESV(MOD-sp2) 69.0 ml ESV(sp2-el) 72.2 ml EF(MOD-sp2) 65.2 % EF(sp2-el) 63.6 % LVLd %diff 2.8 % EDV(MOD-bp) 187.2 ml LVLs %diff -7.17 % ESV(MOD-bp) 72.2 ml EF(MOD-bp) 61.4 % SV(MOD-sp4) 97.1 ml SI(MOD-sp4) 46.7 ml/m\S\2 SV(MOD-sp2) 129.4 ml SI(MOD-sp2) 62.3 ml/m\S\2 SV(MOD-bp) 115.0 ml SI(MOD-bp) 55.3 ml/m\S\2 SV(sp4-el) 100.3 ml SI(sp4-el) 48.2 ml/m\S\2 SV(sp2-el) 126.2 ml SI(sp2-el) 60.7 ml/m\S\2 Doppler Measurements and Calculations MV E max richard 92.2 cm/sec MV A max richard 44.1 cm/sec MV E/A 2.1 MV dec time 0.19 sec Ao V2 max 146.7 cm/sec Ao max PG 8.6 mmHg Ao max PG (full) 6.3 mmHg AI max richard 308.5 cm/sec AI max PG 38.1 mmHg AI dec slope 154.7 cm/sec\S\2 AI P1/2t 584.0 msec LV V1 max PG 2.3 mmHg LV V1 max 76.6 cm/sec PA V2 max 117.0 cm/sec PA max PG 5.5 mmHg TR max richard 227.7 cm/sec
--- NOTE | 2017-04-06 20:34 | Progress Note ---
Medicine Progress Note Date & Time of Visit: Apr 06, 2017 at ~ 13:00 . Subjective CC: Follow-up visit for multiple problems. HPI: Admitted yesterday with cough and other problems. No fever. Cough intermittent, sometimes productive of small amounts of sputum. No chest pain. Lower extremity edema improved. Byrd catheter inserted with some gross hematuria; hematuria improved. Seen by COMMUNITY RESOURCE OFFICER for bedside swallowing eval; slippery diet recommended. ROS: General- as noted above in HPI Resp- as noted above in HPI Cardiac- as noted above in HPI GI- constipated; no nausea, no vomiting - as noted above in HPI . Objective Last 8 Hrs Date Time Temp Pulse Resp B/P (MAP) Pulse Ox O2 Delivery O2 Flow Rate FiO2 04/06/17 20:14 79 16 99 Room Air 04/06/17 19:31 36.6 50 16 125/54 (77) 94 Room Air 04/06/17 16:40 Room Air 04/06/17 14:55 36.6 52 20 173/74 (107) 98 04/06/17 14:40 83 16 97 Room Air Physical Exam: General- sitting in chair; no distress Lungs- bibasilar rales; decreased breath sounds right base; mild wheezing; no respiratory distress Cardiovascular- RRR; bradycardic; II/ systolic murmur at base; no gallop appreciated; + JVD; 1+ pretibial edema Abdomen- + bowel sounds, soft, nontender - Byrd cath draining brownish urine Extremities- no cyanosis; no calf tenderness; TEDS applied Neuro- alert, oriented Skin- warm & dry . Laboratory Results: Last 24 Hours Test 04/05/17 20:49 04/05/17 22:25 04/06/17 03:00 Osmolality 270 mOsm/kg Troponin I 0.059 ng/ml 0.036 ng/ml Urine Osmolality 381 mOms/kg White Blood Count 3.53 K/uL Red Blood Count 3.89 M/uL Hemoglobin 11.5 g/dL Hematocrit 34.4 % Mean Corpuscular Volume 88.4 fL Mean Corpuscular Hemoglobin 29.6 pg Mean Corpuscular Hemoglobin Concent 33.4 g/dl RDW Standard Deviation 46.2 fL RDW Coefficient of Variation 14.2 % Platelet Count 124 K/uL Mean Platelet Volume 9.6 fL Prothrombin Time 33.4 SECONDS Prothromb Time International Ratio 3.3 Sodium Level 127 mmol/L Potassium Level 3.9 mmol/L Chloride Level 93 mmol/L Carbon Dioxide Level 28 mmol/L Anion Gap 6.0 mmol/L Blood Urea Nitrogen 17 mg/dl Creatinine 1.08 mg/dl Est Creatinine Clear Calc Drug Dose 67.5 ml/min Estimated GFR () 76.9 Estimated GFR (Non- 66.3 BUN/Creatinine Ratio 16.1 Random Glucose 112 mg/dl Calcium Level 7.9 mg/dl Magnesium Level 1.9 mg/dl Assessment & Plan CHF Exam, chest x-ray, and elevated BNP consistent with CHF. Echo demonstrates normal LVEF, no significant valvular pathology. 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 Continue IV furosemide. POSSIBLE LOWER RESPIRATORY TRACT INFECTION Productive cough. Afebrile. No definite infiltrates on chest x-ray. FILM SOUND ENGINEER swab for influenza A/B Ag negative. Cough may be secondary to CHF or bronchitis. Stop IV antibiotics. Rx for possible bronchitis with doxycycline. CORONARY ARTERY DISEASE History ischemic heart disease, s/p CABG. No anginal symptoms. Slightly elevated troponins (0.063, 0.059, 0.036) probably due to CHF or infection, not acute coronary syndrome. Metoprolol on hold due to bradycardia. Continue aspirin and statin. PAROXYSMAL ATRIAL FIBRILLATION Continue amiodarone. Warfarin on hold due to bradycardia. Continue warfarin. HYPERTENSION Metoprolol on hold due to bradycardia. Continue lisinopril. Follow and titrate Rx. COPD Bronchospasm could be secondary to bronchitis or CHF. Oxygenating well. Continue bronchodilators. GERD Continue famotidine. BPH Byrd catheter inserted. Continue tamsulosin. Voiding trial in 1-2 days. HEMATURIA Probably secondary to Byrd insertion. Follow. S/P RIGHT TKA 02/06/17 Resume PT when able. VTE PROPHYLAXIS Continue warfarin. Ambulate. DISPOSITION To be determined. Family Medicine follow-up with Dr. Roldan. . Current Inpatient Medications: Current Inpatient Medications Medications (Trade) Dose Ordered Sig/Martine Route Start Time Stop Time Status Last Admin Dose Admin Acetaminophen (Tylenol Tab) 650 mg Q4H PRN PO 04/05/17 17:30 05/05/17 17:29 Nitroglycerin (Nitrostat Tab) 0.4 mg UD PRN SL 04/05/17 17:30 3/3/18 17:29 Polyethylene (Miralax Powder Packet) 17 gm DAILY PRN PO 04/05/17 17:30 05/05/17 17:29 04/05/17 21:44 17 GM Nystatin (Mycostatin Powder) 1 appln TID EXT 04/05/17 21:00 05/05/17 20:59 04/06/17 08:22 1 APPLN Ipratropium [place] (Atrovent 0.02% 0.5MG/2.5ML Neb) 0.5 mg Q6R INH 04/05/17 21:00 05/05/17 20:59 04/06/17 20:14 0.5 MG Levalbuterol (Xopenex 1.25MG/ 0.5ML Neb) 1.25 mg Q6R INH 04/05/17 21:00 05/05/17 20:59 04/06/17 20:14 1.25 MG Ipratropium [place] (Atrovent 0.02% 0.5MG/2.5ML Neb) 0.5 mg Q4H PRN INH 04/05/17 18:00 05/05/17 17:59 Levalbuterol (Xopenex 0.63 Mg/ 3 Ml Neb) 0.63 mg Q4H PRN INH 04/05/17 18:00 05/05/17 17:59 Furosemide 20 mg/ Syringe 2 ml @ 4 mls/min BID17 IV 04/06/17 09:00 05/06/17 08:59 04/06/17 16:57 4 MLS/MIN Prednisone (PredniSONE TAB) 40 mg DAILY PO 04/05/17 18:30 05/05/17 18:29 04/06/17 08:24 40 MG Amiodarone HCl (Cordarone Tab) 200 mg QAM PO 04/06/17 09:00 05/06/17 08:59 04/06/17 08:23 200 MG Aspirin (Ecotrin Tab) 81 mg QAM PO 04/06/17 09:00 05/06/17 08:59 04/06/17 08:23 81 MG Atorvastatin Calcium (Lipitor Tab) 20 mg HS PO 04/05/17 21:00 05/05/17 20:59 04/05/17 21:39 20 MG Docusate Sodium (coLACE CAP) 100 mg BID PO 04/05/17 21:00 05/05/17 20:59 04/06/17 08:23 100 MG Famotidine (Pepcid Tab) 20 mg BID PO 04/05/17 21:00 05/05/17 20:59 04/06/17 08:23 20 MG Fluticasone Propionate (Flonase Nasal [place]) 2 sprays DAILY PRN PILI 04/05/17 18:30 05/05/17 18:29 Lisinopril (Zestril Tab) 40 mg DAILY PO 04/06/17 09:00 05/06/17 08:59 04/06/17 08:23 40 MG Lorazepam (Ativan Tab) 0.5 mg BID PRN PO 04/05/17 18:30 05/05/17 18:29 Magnesium Oxide (Mag-Ox Tab) 400 mg BID PO 04/05/17 21:00 05/05/17 20:59 04/06/17 08:24 400 MG Potassium Chloride (Klor-Con M10) 10 meq QAM PO 04/06/17 09:00 05/06/17 08:59 04/06/17 08:24 10 MEQ Salmeterol Xinafoate (Serevent Diskus Inh) 1 puffs BID INH 04/05/17 21:00 05/05/17 20:59 04/06/17 08:22 1 PUFFS Tamsulosin HCl (Flomax Cap) 0.4 mg DAILY PO 04/06/17 09:00 05/06/17 08:59 04/06/17 08:24 0.4 MG Trazodone HCl (Desyrel Tab) 50 mg HS PRN PO 04/05/17 18:30 05/05/17 18:29 04/05/17 21:48 50 MG Benzonatate (Tessalon Perles Cap) 100 mg Q8H PRN PO 04/06/17 01:45 05/06/17 01:44
[2017-04-06] MEDS: ATORVASTATIN 20 MG TAB PO SCH (20:36)
[2017-04-06] MEDS: LORAZEPAM 0.5 MG TAB PO PRN (20:37)
[2017-04-06] MEDS: TRAZODONE HCL 50 MG TAB PO PRN (20:37)
[2017-04-06] MEDS: POLYETHYLENE (MIRALAX) 17 GM PACK PO PRN (20:37)
[2017-04-06] MEDS ORDERED: METOPROLOL SUCC 25MG EXT REL TAB PO ONE (21:22)
[2017-04-07] VITALS (11 sets, daily range): BP systolic 145–172; BP diastolic 53–69; PULSE 51–61; TEMP 36.2–36.7; O2SAT 93–96
[2017-04-07] MEDS: BENZONATATE 100MG CAP PO PRN ×2 (02:00→16:13)
[2017-04-07] MEDS: LEVALBUTEROL 0.63MG/3 ML NEB INH PRN (02:29)
[2017-04-07] MEDS: IPRATROPIUM BROMIDE NEB SOLN 0.02% 2.5 ML VIAL INH PRN (02:29)
[2017-04-07 08:40] LABS: INR 2.3 (0.9-1.1)
[2017-04-07] MEDS: TAMSULOSIN HCL 0.4 MG CAP PO SCH (08:46)
[2017-04-07] MEDS: LISINOPRIL 40 MG TAB PO SCH (08:47)
[2017-04-07] MEDS: NYSTATIN POWDER 15GM BTL EXT SCH ×3 (08:48→20:48)
[2017-04-07] MEDS: ASPIRIN 81 MG ECTAB PO SCH (08:48)
[2017-04-07] MEDS: SALMETEROL XINAFOATE 50MCG 28 BLISTER INH INH SCH ×2 (08:48→20:48)
[2017-04-07] MEDS: AMIODARONE 200 MG TAB PO SCH (08:48)
[2017-04-07] MEDS: DOCUSATE SODIUM 100 MG CAP PO SCH ×2 (08:49→20:49)
[2017-04-07] MEDS: MAGNESIUM OXIDE 400 MG TAB PO SCH ×2 (08:49→20:50)
[2017-04-07] MEDS: FAMOTIDINE 20 MG TAB PO SCH ×2 (08:50→20:50)
[2017-04-07] MEDS: DOXYCYCLINE HYCLATE 100 MG CAP PO SCH ×2 (08:50→20:49)
[2017-04-07] MEDS: METOPROLOL SUCC 25MG EXT REL TAB PO SCH ×2 (08:51→20:49)
[2017-04-07] MEDS: POTASSIUM CHLORIDE 10 MEQ TABCR PO SCH (08:53)
[2017-04-07 08:59] LABS: CALCIUM 7.8 mg/dl (8.5-10.1); CREATININE 1.24 mg/dl (0.60-1.40); POTASSIUM 3.3 mmol/L (3.5-5.1)
[2017-04-07] MEDS: POLYETHYLENE (MIRALAX) 17 GM PACK PO SCH ×3 (09:00→22:51)
[2017-04-07] MEDS ORDERED: POTASSIUM CHLORIDE 20 MEQ TABCR PO ONE ×2 (09:30→18:00)
[2017-04-07] MEDS: WARFARIN SOD 5 MG TAB PO SCH (17:13)
--- NOTE | 2017-04-07 17:19 | Progress Note ---
Medicine Progress Note Date & Time of Visit: Apr 07, 2017 at 12:00 . Subjective CC: Follow-up visit for multiple problems. HPI: No fever. Cough intermittent, sometimes productive of small amounts of sputum. No chest pain. No nausea or vomiting. Moved bowels yesterday. Lower extremity edema improved. Gross hematuria via Byrd improved. Seen by ONLINE COMMUNICATIONS SPECIALIST for bedside swallowing eval; slippery diet recommended. ROS: General- as noted above in HPI Resp- as noted above in HPI Cardiac- as noted above in HPI GI- as noted above in HPI - as noted above in HPI . Objective Last 8 Hrs Date Time Temp Pulse Resp B/P (MAP) Pulse Ox O2 Delivery O2 Flow Rate FiO2 04/07/17 15:48 36.2 52 18 162/62 (95) 96 Room Air 04/07/17 12:08 36.5 51 16 153/53 (86) 94 Room Air 04/07/17 12:00 94 Room Air Physical Exam: General- sitting in chair; no distress Lungs- bibasilar rales; decreased breath sounds right base; mild wheezing; no respiratory distress Cardiovascular- RRR; bradycardic; II/ systolic murmur at base; no gallop appreciated; + JVD; 1+ pretibial edema Abdomen- + bowel sounds, soft, nontender - Byrd cath draining clear urine Extremities- no cyanosis; no calf tenderness; TEDS applied Neuro- alert, oriented Skin- warm & dry . Laboratory Results: Last 24 Hours Test 04/07/17 07:36 Prothrombin Time 24.2 SECONDS Prothromb Time International Ratio 2.3 Sodium Level 130 mmol/L Potassium Level 3.3 mmol/L Chloride Level 93 mmol/L Carbon Dioxide Level 31 mmol/L Anion Gap 6.0 mmol/L Blood Urea Nitrogen 20 mg/dl Creatinine 1.24 mg/dl Est Creatinine Clear Calc Drug Dose 58.9 ml/min Estimated GFR () 65.0 Estimated GFR (Non- 56.1 BUN/Creatinine Ratio 16.3 Random Glucose 89 mg/dl Calcium Level 7.8 mg/dl Magnesium Level 2.1 mg/dl Assessment & Plan CHF Exam, chest x-ray, and elevated BNP consistent with CHF. Echo demonstrates normal LVEF, no significant valvular pathology. 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 Weight down 4.3 kg per built-in bedscale. Continue IV furosemide. POSSIBLE LOWER RESPIRATORY TRACT INFECTION Productive cough. Afebrile. No definite infiltrates on chest x-ray. SENIOR PROGRAM ANALYST swab for influenza A/B Ag negative. Cough may be secondary to CHF or bronchitis. Stopped IV antibiotics. Rx for possible bronchitis with doxycycline. CORONARY ARTERY DISEASE History ischemic heart disease, s/p CABG. No anginal symptoms. Slightly elevated troponins (0.063, 0.059, 0.036) probably due to CHF or infection, not acute coronary syndrome. Metoprolol held due to bradycardia, restarted at reduced dose. Continue aspirin and statin. PAROXYSMAL ATRIAL FIBRILLATION Continue amiodarone. Metoprolol held due to bradycardia, restarted at reduced dose. Continue warfarin. HYPERTENSION Metoprolol on hold due to bradycardia. Continue lisinopril. Follow and titrate Rx. COPD Bronchospasm could be secondary to bronchitis or CHF. Oxygenating well. Continue bronchodilators. GERD Continue famotidine. BPH Byrd catheter inserted. Continue tamsulosin. Voiding trial in 1-2 days. HEMATURIA Probably secondary to Byrd insertion. Improved. Follow. S/P RIGHT TKA 02/06/17 PT as able. VTE PROPHYLAXIS Continue warfarin. Ambulate. DISPOSITION Expected return to [facility]. Family Medicine follow-up with Dr. Roldan. . Current Inpatient Medications: Current Inpatient Medications Medications (Trade) Dose Ordered Sig/Martine Route Start Time Stop Time Status Last Admin Dose Admin Acetaminophen (Tylenol Tab) 650 mg Q4H PRN PO 04/05/17 17:30 05/05/17 17:29 Nitroglycerin (Nitrostat Tab) 0.4 mg UD PRN SL 04/05/17 17:30 05/05/17 17:29 Polyethylene (Miralax Powder Packet) 17 gm DAILY PRN PO 04/05/17 17:30 05/05/17 17:29 04/06/17 20:37 17 GM Nystatin (Mycostatin Powder) 1 appln TID EXT 04/05/17 21:00 05/05/17 20:59 04/07/17 14:09 1 APPLN Ipratropium [place] (Atrovent 0.02% 0.5MG/2.5ML Neb) 0.5 mg Q4H PRN INH 04/05/17 18:00 05/05/17 17:59 04/07/17 02:29 0.5 MG Levalbuterol (Xopenex 0.63 Mg/ 3 Ml Neb) 0.63 mg Q4H PRN INH 04/05/17 18:00 05/05/17 17:59 04/07/17 02:29 0.63 MG Furosemide 20 mg/ Syringe 2 ml @ 4 mls/min BID17 IV 04/06/17 09:00 05/06/17 08:59 Future Hold 04/06/17 16:57 4 MLS/MIN Prednisone (PredniSONE TAB) 40 mg DAILY PO 04/05/17 18:30 05/05/17 18:29 04/07/17 08:47 40 MG Amiodarone HCl (Cordarone Tab) 200 mg QAM PO 04/06/17 09:00 05/06/17 08:59 04/07/17 08:48 200 MG Aspirin (Ecotrin Tab) 81 mg QAM PO 04/06/17 09:00 05/06/17 08:59 04/07/17 08:48 81 MG Atorvastatin Calcium (Lipitor Tab) 20 mg HS PO 04/05/17 21:00 05/05/17 20:59 04/06/17 20:36 20 MG Docusate Sodium (coLACE CAP) 100 mg BID PO 04/05/17 21:00 05/05/17 20:59 04/07/17 08:49 100 MG Famotidine (Pepcid Tab) 20 mg BID PO 04/05/17 21:00 05/05/17 20:59 04/07/17 08:50 20 MG Fluticasone Propionate (Flonase Nasal [place]) 2 sprays DAILY PRN PILI 04/05/17 18:30 05/05/17 18:29 Lisinopril (Zestril Tab) 40 mg DAILY PO 04/06/17 09:00 05/06/17 08:59 04/07/17 08:47 40 MG Lorazepam (Ativan Tab) 0.5 mg BID PRN PO 04/05/17 18:30 05/05/17 18:29 04/06/17 20:37 0.5 MG Magnesium Oxide (Mag-Ox Tab) 400 mg BID PO 04/05/17 21:00 05/05/17 20:59 04/07/17 08:49 400 MG Potassium Chloride (Klor-Con M10) 10 meq QAM PO 04/06/17 09:00 05/06/17 08:59 04/07/17 08:53 10 MEQ Salmeterol Xinafoate (Serevent Diskus Inh) 1 puffs BID INH 04/05/17 21:00 05/05/17 20:59 04/07/17 08:48 1 PUFFS Tamsulosin HCl (Flomax Cap) 0.4 mg DAILY PO 04/06/17 09:00 05/06/17 08:59 04/07/17 08:46 0.4 MG Trazodone HCl (Desyrel Tab) 50 mg HS PRN PO 04/05/17 18:30 05/05/17 18:29 04/06/17 20:37 50 MG Benzonatate (Tessalon Perles Cap) 100 mg Q8H PRN PO 04/06/17 01:45 05/06/17 01:44 04/07/17 16:13 100 MG Doxycycline Hyclate (Vibramycin Cap) 100 mg BID PO 04/07/17 09:00 04/14/17 08:59 04/07/17 08:50 100 MG Warfarin Sodium (Coumadin Tab) 5 mg DAILY@16 PO 04/07/17 16:00 05/07/17 15:59 04/07/17 17:13 5 MG Polyethylene (Miralax Powder Packet) 17 gm BID PO 04/07/17 09:00 05/07/17 08:59 Metoprolol Succinate (Toprol Xl Tab) 25 mg BID PO 04/07/17 09:00 05/07/17 08:59
[2017-04-07] MEDS: ATORVASTATIN 20 MG TAB PO SCH (20:48)
[2017-04-07] MEDS: LORAZEPAM 0.5 MG TAB PO PRN (20:57)
[2017-04-08] VITALS (11 sets, daily range): BP systolic 153–180; BP diastolic 46–74; PULSE 54–60; TEMP 36.3–36.7; O2SAT 93–95
[2017-04-08] MEDS ORDERED: LISINOPRIL 40 MG TAB PO ONE (04:50)
[2017-04-08] MEDS: IPRATROPIUM BROMIDE NEB SOLN 0.02% 2.5 ML VIAL INH PRN (05:00)
[2017-04-08] MEDS: LEVALBUTEROL 0.63MG/3 ML NEB INH PRN (05:00)
[2017-04-08 06:00] LABS: INR 2.3 (0.9-1.1)
[2017-04-08 06:40] LABS: CALCIUM 7.9 mg/dl (8.5-10.1); CREATININE 0.95 mg/dl (0.60-1.40); POTASSIUM 4.1 mmol/L (3.5-5.1)
[2017-04-08] MEDS: TAMSULOSIN HCL 0.4 MG CAP PO SCH (08:33)
[2017-04-08] MEDS: POTASSIUM CHLORIDE 10 MEQ TABCR PO SCH (08:34)
[2017-04-08] MEDS: FAMOTIDINE 20 MG TAB PO SCH (08:34)
[2017-04-08] MEDS: METOPROLOL SUCC 25MG EXT REL TAB PO SCH (08:34)
[2017-04-08] MEDS: SALMETEROL XINAFOATE 50MCG 28 BLISTER INH INH SCH ×2 (08:35→21:00)
[2017-04-08] MEDS: POLYETHYLENE (MIRALAX) 17 GM PACK PO SCH ×2 (08:35→21:00)
[2017-04-08] MEDS: MAGNESIUM OXIDE 400 MG TAB PO SCH ×2 (08:35→21:00)
[2017-04-08] MEDS: NYSTATIN POWDER 15GM BTL EXT SCH ×3 (08:35→21:00)
[2017-04-08] MEDS: DOXYCYCLINE HYCLATE 100 MG CAP PO SCH ×2 (08:36→21:00)
[2017-04-08] MEDS: ASPIRIN 81 MG ECTAB PO SCH (08:36)
[2017-04-08] MEDS: AMIODARONE 200 MG TAB PO SCH (08:37)
[2017-04-08] MEDS: DOCUSATE SODIUM 100 MG CAP PO SCH ×2 (08:38→21:00)
[2017-04-08] MEDS: BENZONATATE 100MG CAP PO PRN (08:42)
[2017-04-08] MEDS: FUROSEMIDE INJ 20 MG in SYRINGE 0 ML IV SCH ×3 (08:49→16:09)
--- NOTE | 2017-04-08 13:17 | Cardiology Follow-Up ---
Subjective General Date of Service: Apr 08, 2017. Chief Complaint: follow up shortness of breath Pt evaluation today including: conversation w/ patient, physical exam History of Present Illness The patient is a 76 year old male seen in follow up. Pt's respiratory status improved. Telemetry reveals stable SR at 65 bpm. Allergies Coded Allergies: Guaifenesin (Verified Adverse Reaction, Unknown, GETS REALLY SICK FROM MUCINEX, 04/06/17) Social History Smoking Status: Former Smoker Hx Alcohol Use - Type And Amou: No Hx Substance Use - Type And Am: No Problem List Medical Problems: (1) Abscess Status: Acute (2) Anticoagulation adequate with anticoagulant therapy Status: Acute (3) Bleeding gums Status: Acute (4) Bleeding gums Status: Acute (5) CHF (congestive heart failure) Status: Acute (6) Contusion of left chest wall Status: Acute (7) Contusion of multiple sites Status: Acute (8) Elevated troponin Status: Acute (9) Epistaxis Status: Acute (10) Fall Status: Acute (11) Generalized weakness Status: Acute (12) Hematoma Status: Acute (13) Hypoxia Status: Acute (14) Knee effusion, right Status: Acute (15) Laceration of left elbow Status: Acute (16) Pneumonia Status: Acute Physical Exam Vital Signs Last Vital Signs Documentation Date Time Temp Pulse Resp B/P (MAP) Pulse Ox O2 Delivery O2 Flow Rate FiO2 04/08/17 11:25 36.3 54 20 159/46 (83) 95 04/08/17 08:00 Room Air Physical Exam Constitutional: Level of Distress: chronically ill Lungs: Auscultation: no wheezing, no rales/crackles, no rhonchi Cardiovascular: Heart Auscultation: RRR, no murmurs Abdomen: Inspection & Palpation: soft, non-distended Extremities: no edema Neurologic: Gait & Station: pertinent finding (no focal deficits ) Assessment and Plan Assessment and Plan Impression: 76 year old male 1. Possible community-acquired pneumonia versus influenza 2. Mild congestive heart failure 3. Paroxysmal atrial fibrillation 4. 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 HTN Plan: Continue low dose IV furosemide. BP elevated overnight, but trending toward improvement. Continue amiodarone, Agree with having lowered metoprolol dose for bradycardia as HR now improved. Future considerations include considering transitioning from metoprolol to coreg for less HR effect more BP effect. INR at goal. Laboratory Results Last 24 Hours Test 04/08/17 05:20 Prothrombin Time 23.7 SECONDS Prothromb Time International Ratio 2.3 Sodium Level 130 mmol/L Potassium Level 4.1 mmol/L Chloride Level 96 mmol/L Carbon Dioxide Level 28 mmol/L Anion Gap 6.0 mmol/L Blood Urea Nitrogen 21 mg/dl Creatinine 0.95 mg/dl Est Creatinine Clear Calc Drug Dose 76.9 ml/min Estimated GFR () 89.8 Estimated GFR (Non- 77.4 BUN/Creatinine Ratio 22.3 Random Glucose 90 mg/dl Calcium Level 7.9 mg/dl
[2017-04-08] MEDS: WARFARIN SOD 5 MG TAB PO SCH (16:05)
--- NOTE | 2017-04-08 19:52 | Progress Note ---
Medicine Progress Note Date & Time of Visit: Apr 08, 2017 at 16:40 . Subjective CC: Follow-up visit for multiple problems. HPI: No fever. Cough improved. No chest pain. No nausea or vomiting. Moving bowels. Lower extremity edema worse after sitting for long periods of time. Still has Byrd cath. ROS: General- as noted above in HPI Resp- as noted above in HPI Cardiac- as noted above in HPI GI- as noted above in HPI - as noted above in HPI . Objective Last 8 Hrs Date Time Temp Pulse Resp B/P (MAP) Pulse Ox O2 Delivery O2 Flow Rate FiO2 04/08/17 18:44 36.6 56 20 153/57 (89) 93 04/08/17 16:22 94 Room Air 04/08/17 15:00 36.6 57 20 157/60 (92) 94 Physical Exam: General- lying in bed; no distress Lungs- bibasilar rales; decreased breath sounds right base; mild wheezing; no respiratory distress Cardiovascular- RRR; II/ systolic murmur at base; no gallop appreciated; + JVD ; 1+ pretibial edema Abdomen- + bowel sounds, soft, nontender - Byrd cath draining blood-tinged sputum Extremities- no cyanosis; no calf tenderness; TEDS applied Neuro- alert, oriented Skin- warm & dry . Laboratory Results: Last 24 Hours Test 04/08/17 05:20 Prothrombin Time 23.7 SECONDS Prothromb Time International Ratio 2.3 Sodium Level 130 mmol/L Potassium Level 4.1 mmol/L Chloride Level 96 mmol/L Carbon Dioxide Level 28 mmol/L Anion Gap 6.0 mmol/L Blood Urea Nitrogen 21 mg/dl Creatinine 0.95 mg/dl Est Creatinine Clear Calc Drug Dose 76.9 ml/min Estimated GFR () 89.8 Estimated GFR (Non- 77.4 BUN/Creatinine Ratio 22.3 Random Glucose 90 mg/dl Calcium Level 7.9 mg/dl Assessment & Plan CHF Exam, chest x-ray, and elevated BNP consistent with CHF. Echo demonstrates normal LVEF, no significant valvular pathology. 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 Weight down 5.3 kg per built-in bedscale. Continue IV furosemide. Check f/u chest film in a.m. POSSIBLE LOWER RESPIRATORY TRACT INFECTION Productive cough at time of admission. Afebrile. No definite infiltrates on chest x-ray. 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 Cough may be secondary to CHF or bronchitis. Stopped IV antibiotics. Rx for possible bronchitis with doxycycline. Cough improved. CORONARY ARTERY DISEASE History ischemic heart disease, s/p CABG. No anginal symptoms. Slightly elevated troponins (0.063, 0.059, 0.036) probably due to CHF or infection, not acute coronary syndrome. Metoprolol held due to bradycardia, restarted at reduced dose. Continue aspirin and statin. PAROXYSMAL ATRIAL FIBRILLATION Continue amiodarone. Metoprolol held due to bradycardia, restarted at reduced dose. Continue warfarin. HYPERTENSION Metoprolol on hold due to bradycardia. Continue lisinopril. Follow and titrate Rx. COPD Bronchospasm could be secondary to bronchitis or CHF. Oxygenating well. Continue bronchodilators. GERD Continue famotidine. BPH Byrd catheter inserted. Continue tamsulosin. Voiding trial tomorrow. HEMATURIA Probably secondary to Byrd insertion. Follow. S/P RIGHT TKA 02/06/17 PT as able. VTE PROPHYLAXIS Continue warfarin. Ambulate. DISPOSITION Expected return to [facility]. Family Medicine follow-up with Dr. Roldan. . Current Inpatient Medications: Current Inpatient Medications Medications (Trade) Dose Ordered Sig/Martine Route Start Time Stop Time Status Last Admin Dose Admin Acetaminophen (Tylenol Tab) 650 mg Q4H PRN PO 04/05/17 17:30 05/05/17 17:29 Nitroglycerin (Nitrostat Tab) 0.4 mg UD PRN SL 04/05/17 17:30 05/05/17 17:29 Polyethylene (Miralax Powder Packet) 17 gm DAILY PRN PO 04/05/17 17:30 05/05/17 17:29 04/06/17 20:37 17 GM Nystatin (Mycostatin Powder) 1 appln TID EXT 04/05/17 21:00 05/05/17 20:59 04/08/17 14:09 1 APPLN Ipratropium [place] (Atrovent 0.02% 0.5MG/2.5ML Neb) 0.5 mg Q4H PRN INH 04/05/17 18:00 05/05/17 17:59 04/08/17 05:00 0.5 MG Levalbuterol (Xopenex 0.63 Mg/ 3 Ml Neb) 0.63 mg Q4H PRN INH 04/05/17 18:00 05/05/17 17:59 04/08/17 05:00 0.63 MG Furosemide 20 mg/ Syringe 2 ml @ 4 mls/min BID17 IV 04/06/17 09:00 05/06/17 08:59 Future hold 04/08/17 16:09 4 MLS/MIN Prednisone (PredniSONE TAB) 40 mg DAILY PO 04/05/17 18:30 05/05/17 18:29 04/08/17 08:36 40 MG Amiodarone HCl (Cordarone Tab) 200 mg QAM PO 04/06/17 09:00 05/06/17 08:59 04/08/17 08:37 200 MG Aspirin (Ecotrin Tab) 81 mg QAM PO 04/06/17 09:00 05/06/17 08:59 04/08/17 08:36 81 MG Atorvastatin Calcium (Lipitor Tab) 20 mg HS PO 04/05/17 21:00 05/05/17 20:59 04/07/17 20:48 20 MG Docusate Sodium (coLACE CAP) 100 mg BID PO 04/05/17 21:00 05/05/17 20:59 04/08/17 08:38 100 MG Famotidine (Pepcid Tab) 20 mg BID PO 04/05/17 21:00 05/05/17 20:59 04/08/17 08:34 20 MG Fluticasone Propionate (Flonase Nasal [place]) 2 sprays DAILY PRN PILI 04/05/17 18:30 05/05/17 18:29 Lorazepam (Ativan Tab) 0.5 mg BID PRN PO 04/05/17 18:30 05/05/17 18:29 04/07/17 20:57 0.5 MG Magnesium Oxide (Mag-Ox Tab) 400 mg BID PO 04/05/17 21:00 05/05/17 20:59 04/08/17 08:35 400 MG Potassium Chloride (Klor-Con M10) 10 meq QAM PO 04/06/17 09:00 05/06/17 08:59 04/08/17 08:34 10 MEQ Salmeterol Xinafoate (Serevent Diskus Inh) 1 puffs BID INH 04/05/17 21:00 05/05/17 20:59 04/08/17 08:35 1 PUFFS Tamsulosin HCl (Flomax Cap) 0.4 mg DAILY PO 04/06/17 09:00 05/06/17 08:59 04/08/17 08:33 0.4 MG Trazodone HCl (Desyrel Tab) 50 mg HS PRN PO 04/05/17 18:30 05/05/17 18:29 04/06/17 20:37 50 MG Benzonatate (Tessalon Perles Cap) 100 mg Q8H PRN PO 04/06/17 01:45 05/06/17 01:44 04/08/17 08:42 100 MG Doxycycline Hyclate (Vibramycin Cap) 100 mg BID PO 04/07/17 09:00 04/14/17 08:59 04/08/17 08:36 100 MG Warfarin Sodium (Coumadin Tab) 5 mg DAILY@16 PO 04/07/17 16:00 05/07/17 15:59 04/08/17 16:05 5 MG Polyethylene (Miralax Powder Packet) 17 gm BID PO 04/07/17 09:00 05/07/17 08:59 04/08/17 08:35 17 GM Metoprolol Succinate (Toprol Xl Tab) 25 mg BID PO 04/07/17 09:00 05/07/17 08:59 04/08/17 08:34 25 MG Lisinopril (Zestril Tab) 40 mg DAILY PO 04/09/17 09:00 05/06/17 08:59
[2017-04-08] MEDS: ATORVASTATIN 20 MG TAB PO SCH (21:00)
[2017-04-09 03:05] VITALS: BP 161/73; PULSE 61; TEMP 36.5; O2SAT 90
[2017-04-09] MEDS: BENZONATATE 100MG CAP PO PRN (05:18)
[2017-04-09 06:23] LABS: INR 2.5 (0.9-1.1)
[2017-04-09 06:35] LABS: CREATININE 1.08 mg/dl (0.60-1.40)
[2017-04-09 06:36] LABS: CALCIUM 7.8 mg/dl (8.5-10.1)
--- NOTE | 2017-04-09 07:24 | DIAGNOSTIC IMAGING REPORT ---
CHEST ONE VIEW PORTABLE CLINICAL HISTORY: f/u CHF dyspnea COMPARISON STUDY: 04/06/2017 FINDINGS: Moderate stable cardiomegaly. Prior median sternotomy. Unchanging right and to lesser extent left basilar pleural effusion. IMPRESSION: Congestive failure essentially unchanged from the prior exam. Right and to a lesser extent left pleural effusion also unchanged. The above report was generated using voice recognition software. It may contain grammatical, syntax or spelling errors. Electronically signed by: Moreno Cotto M.D. 04/09/2017 7:23 AM Dictated Date/Time: 04/09/2017 7:22 AM
[2017-04-09 07:27] VITALS: BP 166/59; PULSE 53; TEMP 36.4; O2SAT 95
[2017-04-09] MEDS: SALMETEROL XINAFOATE 50MCG 28 BLISTER INH INH SCH ×2 (07:29→21:42)
[2017-04-09] MEDS: POLYETHYLENE (MIRALAX) 17 GM PACK PO SCH ×2 (07:30→21:41)
[2017-04-09] MEDS: DOCUSATE SODIUM 100 MG CAP PO SCH ×2 (07:30→21:38)
[2017-04-09] MEDS: ASPIRIN 81 MG ECTAB PO SCH (07:31)
[2017-04-09] MEDS: AMIODARONE 200 MG TAB PO SCH (07:31)
[2017-04-09] MEDS: LISINOPRIL 40 MG TAB PO SCH (07:31)
[2017-04-09] MEDS: TAMSULOSIN HCL 0.4 MG CAP PO SCH (07:32)
[2017-04-09] MEDS: DOXYCYCLINE HYCLATE 100 MG CAP PO SCH ×2 (07:32→21:39)
[2017-04-09] MEDS: MAGNESIUM OXIDE 400 MG TAB PO SCH ×2 (07:32→21:42)
[2017-04-09] MEDS: AMLODIPINE BESYLATE 5 MG TAB PO SCH (07:33)
[2017-04-09] MEDS: FAMOTIDINE 20 MG TAB PO SCH ×3 (07:33→18:27)
[2017-04-09] MEDS: POTASSIUM CHLORIDE 10 MEQ TABCR PO SCH (07:33)
[2017-04-09] MEDS: METOPROLOL SUCC 50MG EXT REL TAB PO SCH (07:34)
[2017-04-09] MEDS: NYSTATIN POWDER 15GM BTL EXT SCH ×3 (07:35→21:40)
[2017-04-09] MEDS: FUROSEMIDE INJ 20 MG in SYRINGE 0 ML IV SCH ×2 (07:54→16:32)
[2017-04-09 11:06] VITALS: BP 128/54; PULSE 61; TEMP 36.7; O2SAT 93
[2017-04-09 16:02] VITALS: BP 152/61; PULSE 60; TEMP 36.3; O2SAT 96
[2017-04-09] MEDS: WARFARIN SOD 5 MG TAB PO SCH (16:32)
[2017-04-09 20:19] VITALS: BP 156/60; PULSE 61; TEMP 36.4; O2SAT 96
--- NOTE | 2017-04-09 20:34 | Progress Note ---
Medicine Progress Note Date & Time of Visit: Apr 09, 2017 at 11:50 . Subjective CC: Follow-up visit for multiple problems. HPI: No fever. Coughing during the night. No chest pain. No nausea or vomiting. Moving bowels. Lower extremity edema improved. Byrd cath removed this morning. ROS: General- as noted above in HPI Resp- as noted above in HPI Cardiac- as noted above in HPI GI- as noted above in HPI - as noted above in HPI . Objective Last 8 Hrs Date Time Temp Pulse Resp B/P (MAP) Pulse Ox O2 Delivery O2 Flow Rate FiO2 04/09/17 20:19 36.4 61 18 156/60 (92) 96 Room Air 04/09/17 20:00 Room Air 04/09/17 16:02 36.3 60 18 152/61 (91) 96 Room Air 04/09/17 16:00 Room Air Physical Exam: General- sitting in chair; no distress Neck- wearing soft cervical collar Lungs- bibasilar rales; decreased breath sounds right base; mild wheezing; no respiratory distress Cardiovascular- RRR; I/ systolic murmur at base; no gallop appreciated; 1+ pretibial edema Abdomen- + bowel sounds, soft, nontender Extremities- no cyanosis; no calf tenderness Neuro- alert, oriented Skin- warm & dry; chronic venous stasis changes lower extremities . Laboratory Results: Last 24 Hours Test 04/09/17 05:46 Prothrombin Time 25.9 SECONDS Prothromb Time International Ratio 2.5 Sodium Level 134 mmol/L Potassium Level 4.0 mmol/L Chloride Level 97 mmol/L Carbon Dioxide Level 29 mmol/L Anion Gap 8.0 mmol/L Blood Urea Nitrogen 22 mg/dl Creatinine 1.08 mg/dl Est Creatinine Clear Calc Drug Dose 67.3 ml/min Estimated GFR () 76.9 Estimated GFR (Non- 66.3 BUN/Creatinine Ratio 20.1 Random Glucose 88 mg/dl Calcium Level 7.8 mg/dl Magnesium Level 1.9 mg/dl Assessment & Plan CHF Exam, chest x-ray, and elevated BNP consistent with CHF. Echo demonstrates normal LVEF, no significant valvular pathology. 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 Weight down 7.1 kg per built-in bedscale. Today's chest x-ray shows persistent pulmonary edema. Continue IV furosemide. POSSIBLE LOWER RESPIRATORY TRACT INFECTION Productive cough at time of admission. Afebrile. No definite infiltrates on chest x-ray. [employer] C[employer] DIRECT[employer] swab for influenza A/B Ag negative. Cough may be secondary to CHF or bronchitis. Stopped IV antibiotics. Rx for possible bronchitis with doxycycline. Cough generally improve (coughing last night, none during my assessment). CORONARY ARTERY DISEASE History ischemic heart disease, s/p CABG. No anginal symptoms. Slightly elevated troponins (0.063, 0.059, 0.036) probably due to CHF or infection, not acute coronary syndrome. Metoprolol held due to bradycardia, restarted at reduced dose. Continue aspirin and statin. PAROXYSMAL ATRIAL FIBRILLATION Continue amiodarone. Metoprolol held due to bradycardia, restarted at reduced dose. Continue warfarin. HYPERTENSION Metoprolol held due to bradycardia, restarted at reduced dose. BP running high after reducing dose of metoprolol. Added amlodipine. Continue lisinopril. Follow and titrate Rx. COPD Bronchospasm could be secondary to bronchitis or CHF. Oxygenating well. Continue bronchodilators. GERD Continue famotidine. BPH Byrd catheter inserted at time of admission. Continue tamsulosin. Voiding trial today. HEMATURIA Probably secondary to Byrd insertion. Follow. S/P RIGHT TKA 02/06/17 PT as able. VTE PROPHYLAXIS Continue warfarin. Ambulate. DISPOSITION Expected return to [facility] with PT / OT. Family Medicine follow-up with Dr. Roldan. . Current Inpatient Medications: Current Inpatient Medications Medications (Trade) Dose Ordered Sig/Martine Route Start Time Stop Time Status Last Admin Dose Admin Acetaminophen (Tylenol Tab) 650 mg Q4H PRN PO 04/05/17 17:30 05/05/17 17:29 Nitroglycerin (Nitrostat Tab) 0.4 mg UD PRN SL 04/05/17 17:30 05/05/17 17:29 Polyethylene (Miralax Powder Packet) 17 gm DAILY PRN PO 04/05/17 17:30 05/05/17 17:29 04/06/17 20:37 17 GM Nystatin (Mycostatin Powder) 1 appln TID EXT 04/05/17 21:00 05/05/17 20:59 04/09/17 12:38 1 APPLN Ipratropium [place] (Atrovent 0.02% 0.5MG/2.5ML Neb) 0.5 mg Q4H PRN INH 04/05/17 18:00 05/05/17 17:59 04/08/17 05:00 0.5 MG Levalbuterol (Xopenex 0.63 Mg/ 3 Ml Neb) 0.63 mg Q4H PRN INH 04/05/17 18:00 05/05/17 17:59 04/08/17 05:00 0.63 MG Furosemide 20 mg/ Syringe 2 ml @ 4 mls/min BID17 IV 04/06/17 09:00 05/06/17 08:59 Future hold 04/09/17 16:32 4 MLS/MIN Prednisone (PredniSONE TAB) 40 mg DAILY PO 04/05/17 18:30 05/05/17 18:29 04/09/17 07:32 40 MG Amiodarone HCl (Cordarone Tab) 200 mg QAM PO 04/06/17 09:00 05/06/17 08:59 04/09/17 07:31 200 MG Aspirin (Ecotrin Tab) 81 mg QAM PO 04/06/17 09:00 05/06/17 08:59 04/09/17 07:31 81 MG Atorvastatin Calcium (Lipitor Tab) 20 mg HS PO 04/05/17 21:00 05/05/17 20:59 04/07/17 20:48 20 MG Docusate Sodium (coLACE CAP) 100 mg BID PO 04/05/17 21:00 05/05/17 20:59 04/09/17 07:30 100 MG Fluticasone Propionate (Flonase Nasal [place]) 2 sprays DAILY PRN PILI 04/05/17 18:30 05/05/17 18:29 Lorazepam (Ativan Tab) 0.5 mg BID PRN PO 04/05/17 18:30 05/05/17 18:29 04/07/17 20:57 0.5 MG Magnesium Oxide (Mag-Ox Tab) 400 mg BID PO 04/05/17 21:00 05/05/17 20:59 04/09/17 07:32 400 MG Potassium Chloride (Klor-Con M10) 10 meq QAM PO 04/06/17 09:00 05/06/17 08:59 04/09/17 07:33 10 MEQ Salmeterol Xinafoate (Serevent Diskus Inh) 1 puffs BID INH 04/05/17 21:00 05/05/17 20:59 04/09/17 07:29 1 PUFFS Tamsulosin HCl (Flomax Cap) 0.4 mg DAILY PO 04/06/17 09:00 05/06/17 08:59 04/09/17 07:32 0.4 MG Trazodone HCl (Desyrel Tab) 50 mg HS PRN PO 04/05/17 18:30 05/05/17 18:29 04/06/17 20:37 50 MG Benzonatate (Tessalon Perles Cap) 100 mg Q8H PRN PO 04/06/17 01:45 05/06/17 01:44 04/09/17 05:18 100 MG Doxycycline Hyclate (Vibramycin Cap) 100 mg BID PO 04/07/17 09:00 04/14/17 08:59 04/09/17 07:32 100 MG Warfarin Sodium (Coumadin Tab) 5 mg DAILY@16 PO 04/07/17 16:00 05/07/17 15:59 04/09/17 16:32 5 MG Polyethylene (Miralax Powder Packet) 17 gm BID PO 04/07/17 09:00 05/07/17 08:59 04/09/17 07:30 17 GM Lisinopril (Zestril Tab) 40 mg DAILY PO 04/09/17 09:00 05/06/17 08:59 04/09/17 07:31 40 MG Famotidine (Pepcid Tab) 20 mg PC PO 04/09/17 09:00 05/05/17 20:59 04/09/17 18:27 20 MG Metoprolol Succinate (Toprol Xl Tab) 50 mg QAM PO 04/09/17 09:00 05/09/17 08:59 04/09/17 07:34 50 MG Amlodipine Besylate (Norvasc Tab) 5 mg QAM PO 04/09/17 09:00 05/09/17 08:59 04/09/17 07:33 5 MG
[2017-04-09] MEDS: ATORVASTATIN 20 MG TAB PO SCH (22:14)
[2017-04-09] MEDS: LORAZEPAM 0.5 MG TAB PO PRN (22:18)
[2017-04-10] VITALS (7 sets, daily range): BP systolic 139–186; BP diastolic 56–68; PULSE 56–60; TEMP 36.4–36.6; O2SAT 92–96
[2017-04-10] MEDS: BENZONATATE 100MG CAP PO PRN (02:33)
[2017-04-10 05:44] LABS: HEMATOCRIT 35.6 % (42-52); HEMOGLOBIN 12.1 g/dL (14.0-18.0); MEAN CELL VOLUME 88.1 fL (80-100); PLATELET COUNT 153 K/uL (130-400); RED CELL DISTRIBUTION WIDTH CV 14.1 % (11.5-14.5); RED CELL DISTRIBUTION WIDTH SD 45.8 fL (36.4-46.3); WHITE BLOOD COUNT 6.34 K/uL (4.8-10.8)
[2017-04-10 05:57] LABS: INR 3.1 (0.9-1.1)
[2017-04-10 06:19] LABS: CALCIUM 7.7 mg/dl (8.5-10.1); CREATININE 1.09 mg/dl (0.60-1.40)
[2017-04-10] MEDS: AMLODIPINE BESYLATE 5 MG TAB PO SCH (09:00)
[2017-04-10] MEDS: FUROSEMIDE INJ 20 MG in SYRINGE 0 ML IV SCH ×2 (09:00→16:37)
[2017-04-10] MEDS: POLYETHYLENE (MIRALAX) 17 GM PACK PO SCH ×2 (09:00→20:58)
[2017-04-10] MEDS: LISINOPRIL 40 MG TAB PO SCH (09:00)
[2017-04-10] MEDS: NYSTATIN POWDER 15GM BTL EXT SCH ×3 (09:00→20:55)
[2017-04-10] MEDS: MAGNESIUM OXIDE 400 MG TAB PO SCH ×2 (09:00→20:56)
[2017-04-10] MEDS: FAMOTIDINE 20 MG TAB PO SCH ×3 (09:00→18:09)
[2017-04-10] MEDS: ASPIRIN 81 MG ECTAB PO SCH (09:00)
[2017-04-10] MEDS: TAMSULOSIN HCL 0.4 MG CAP PO SCH (09:00)
[2017-04-10] MEDS: POTASSIUM CHLORIDE 10 MEQ TABCR PO SCH (09:00)
[2017-04-10] MEDS: SALMETEROL XINAFOATE 50MCG 28 BLISTER INH INH SCH ×2 (09:00→20:55)
[2017-04-10] MEDS: DOXYCYCLINE HYCLATE 100 MG CAP PO SCH ×2 (09:00→20:58)
[2017-04-10] MEDS: DOCUSATE SODIUM 100 MG CAP PO SCH ×2 (09:00→20:57)
[2017-04-10] MEDS: AMIODARONE 200 MG TAB PO SCH (09:00)
[2017-04-10] MEDS: METOPROLOL SUCC 50MG EXT REL TAB PO SCH (09:00)
[2017-04-10] MEDS: WARFARIN SOD 2.5 MG TAB PO SCH (16:36)
--- NOTE | 2017-04-10 20:34 | Progress Note ---
Medicine Progress Note Date & Time of Visit: Apr 10, 2017 at 20:00 . Subjective CC: Follow-up visit for multiple problems. HPI: Seen this afternoon when sister visiting and reassessed this evening. No fever. Still has cough, especially at night. Minimally productive. No chest pain. No nausea or vomiting. No diarrhea. Lower extremity edema improved. Voiding without difficulty since Byrd cath removed. No gross hematuria. ROS: General- as noted above in HPI Resp- as noted above in HPI Cardiac- as noted above in HPI GI- as noted above in HPI - as noted above in HPI . Objective Last 8 Hrs Date Time Temp Pulse Resp B/P (MAP) Pulse Ox O2 Delivery O2 Flow Rate FiO2 04/10/17 19:34 36.6 57 18 153/62 (92) 95 Room Air 04/10/17 16:00 Room Air 04/10/17 15:33 58 18 139/63 (88) 94 Room Air Physical Exam: General- sitting in chair; no distress Lungs- few bibasilar rales; decreased breath sounds right base; minimal wheezing ; no respiratory distress Cardiovascular- RRR; I/ systolic murmur at base; no gallop appreciated; 1+ pretibial edema Abdomen- + bowel sounds, soft, nontender Extremities- no cyanosis; no calf tenderness; wearing TEDS Neuro- alert, oriented; missed the date x 1, but otherwise is oriented x 3; able to name the president. Missed serial 7's after 65. Skin- warm & dry . Laboratory Results: Last 24 Hours Test 04/10/17 05:29 White Blood Count 6.34 K/uL Red Blood Count 4.04 M/uL Hemoglobin 12.1 g/dL Hematocrit 35.6 % Mean Corpuscular Volume 88.1 fL Mean Corpuscular Hemoglobin 30.0 pg Mean Corpuscular Hemoglobin Concent 34.0 g/dl RDW Standard Deviation 45.8 fL RDW Coefficient of Variation 14.1 % Platelet Count 153 K/uL Mean Platelet Volume 9.0 fL Prothrombin Time 32.0 SECONDS Prothromb Time International Ratio 3.1 Sodium Level 132 mmol/L Potassium Level 4.0 mmol/L Chloride Level 96 mmol/L Carbon Dioxide Level 32 mmol/L Anion Gap 4.0 mmol/L Blood Urea Nitrogen 23 mg/dl Creatinine 1.09 mg/dl Est Creatinine Clear Calc Drug Dose 62.9 ml/min Estimated GFR () 76.0 Estimated GFR (Non- 65.6 BUN/Creatinine Ratio 21.2 Random Glucose 81 mg/dl Calcium Level 7.7 mg/dl Assessment & Plan CHF Exam, chest x-ray, and elevated BNP consistent with CHF. Echo demonstrates normal LVEF, no significant valvular pathology. 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 Weight down ? 11.8 kg kg (per built-in bedscale). Chest x-ray 04/09 showed persistent pulmonary edema. Continue IV furosemide. POSSIBLE LOWER RESPIRATORY TRACT INFECTION Productive cough at time of admission. Afebrile. No definite infiltrates on chest x-ray. SUPPLY CATALOGUER swab for influenza A/B Ag negative. Cough may be secondary to CHF or bronchitis. Stopped IV antibiotics. Rx for possible bronchitis with doxycycline. Cough generally improve (coughing last night, none during my assessment). POSSIBLE ASPIRATION Seen OUTSOLES CHANNEL OPENER for bedside swallowing eval. No overt aspiration appreciated. Patient and his sister concerned about aspiration. May be experiencing reflux when supine. Check barium esophagram. CORONARY ARTERY DISEASE History ischemic heart disease, s/p CABG. No anginal symptoms. Slightly elevated troponins (0.063, 0.059, 0.036) probably due to CHF or infection, not acute coronary syndrome. Metoprolol held due to bradycardia, restarted at reduced dose. Continue aspirin and statin. PAROXYSMAL ATRIAL FIBRILLATION Continue amiodarone. Metoprolol held due to bradycardia, restarted at reduced dose. Continue warfarin. HYPERTENSION Metoprolol held due to bradycardia, restarted at reduced dose. BP ran high after reducing dose of metoprolol. Added amlodipine. Continue lisinopril. BP's improved. Follow and titrate Rx. COPD Bronchospasm could be secondary to bronchitis or CHF. Oxygenating well. Continue bronchodilators. GERD Continue famotidine. BPH Byrd catheter inserted at time of admission. Voiding well since removal. Continue tamsulosin. HEMATURIA Probably secondary to Byrd insertion. Resolved. S/P RIGHT TKA 02/06/17 PT as able. POOR SHORT TERM MEMORY Sister concerned about problems with short-term memory. Patient acknowledges some difficulties. He missed the date x 1 today, but otherwise is oriented x 3. Able to name the president. Missed serial 7's after 65. Neuro consult requested. Consider outpatient neuropsych testing if ongoing concerns. VTE PROPHYLAXIS Continue warfarin. Ambulate. DISPOSITION Expected return to [facility] with PT / OT. Family Medicine follow-up with Dr. Roldan. . Current Inpatient Medications: Current Inpatient Medications Medications (Trade) Dose Ordered Sig/Martine Route Start Time Stop Time Status Last Admin Dose Admin Acetaminophen (Tylenol Tab) 650 mg Q4H PRN PO 04/05/17 17:30 05/05/17 17:29 Nitroglycerin (Nitrostat Tab) 0.4 mg UD PRN SL 04/05/17 17:30 05/05/17 17:29 Polyethylene (Miralax Powder Packet) 17 gm DAILY PRN PO 04/05/17 17:30 05/05/17 17:29 04/06/17 20:37 17 GM Nystatin (Mycostatin Powder) 1 appln TID EXT 04/05/17 21:00 05/05/17 20:59 04/10/17 14:00 1 APPLN Ipratropium [place] (Atrovent 0.02% 0.5MG/2.5ML Neb) 0.5 mg Q4H PRN INH 04/05/17 18:00 05/05/17 17:59 04/08/17 05:00 0.5 MG Levalbuterol (Xopenex 0.63 Mg/ 3 Ml Neb) 0.63 mg Q4H PRN INH 04/05/17 18:00 05/05/17 17:59 04/08/17 05:00 0.63 MG Furosemide 20 mg/ Syringe 2 ml @ 4 mls/min BID17 IV 04/06/17 09:00 05/06/17 08:59 Future hold 04/10/17 16:37 4 MLS/MIN Prednisone (PredniSONE TAB) 40 mg DAILY PO 04/05/17 18:30 05/05/17 18:29 04/10/17 09:00 40 MG Amiodarone HCl (Cordarone Tab) 200 mg QAM PO 04/06/17 09:00 05/06/17 08:59 04/10/17 09:00 200 MG Aspirin (Ecotrin Tab) 81 mg QAM PO 04/06/17 09:00 05/06/17 08:59 04/10/17 09:00 81 MG Atorvastatin Calcium (Lipitor Tab) 20 mg HS PO 04/05/17 21:00 05/05/17 20:59 04/09/17 22:14 20 MG Docusate Sodium (coLACE CAP) 100 mg BID PO 04/05/17 21:00 05/05/17 20:59 04/10/17 09:00 100 MG Fluticasone Propionate (Flonase Nasal [place]) 2 sprays DAILY PRN PILI 04/05/17 18:30 05/05/17 18:29 Lorazepam (Ativan Tab) 0.5 mg BID PRN PO 04/05/17 18:30 05/05/17 18:29 04/09/17 22:18 0.5 MG Magnesium Oxide (Mag-Ox Tab) 400 mg BID PO 04/05/17 21:00 05/05/17 20:59 04/10/17 09:00 400 MG Potassium Chloride (Klor-Con M10) 10 meq QAM PO 04/06/17 09:00 05/06/17 08:59 04/10/17 09:00 10 MEQ Salmeterol Xinafoate (Serevent Diskus Inh) 1 puffs BID INH 04/05/17 21:00 05/05/17 20:59 04/10/17 09:00 1 PUFFS Tamsulosin HCl (Flomax Cap) 0.4 mg DAILY PO 04/06/17 09:00 05/06/17 08:59 04/10/17 09:00 0.4 MG Trazodone HCl (Desyrel Tab) 50 mg HS PRN PO 04/05/17 18:30 05/05/17 18:29 04/06/17 20:37 50 MG Benzonatate (Tessalon Perles Cap) 100 mg Q8H PRN PO 04/06/17 01:45 05/06/17 01:44 04/10/17 02:33 100 MG Doxycycline Hyclate (Vibramycin Cap) 100 mg BID PO 04/07/17 09:00 04/14/17 08:59 04/10/17 09:00 100 MG Polyethylene (Miralax Powder Packet) 17 gm BID PO 04/07/17 09:00 05/07/17 08:59 04/10/17 09:00 17 GM Lisinopril (Zestril Tab) 40 mg DAILY PO 04/09/17 09:00 05/06/17 08:59 04/10/17 09:00 40 MG Famotidine (Pepcid Tab) 20 mg PC PO 04/09/17 09:00 05/05/17 20:59 04/10/17 18:09 20 MG Metoprolol Succinate (Toprol Xl Tab) 50 mg QAM PO 04/09/17 09:00 05/09/17 08:59 04/10/17 09:00 50 MG Amlodipine Besylate (Norvasc Tab) 5 mg QAM PO 04/09/17 09:00 05/09/17 08:59 04/10/17 09:00 5 MG Warfarin Sodium (Coumadin Tab) 2.5 mg DAILY@16 PO 04/10/17 16:00 05/10/17 15:59 04/10/17 16:36 2.5 MG
[2017-04-10] MEDS: ATORVASTATIN 20 MG TAB PO SCH (20:59)
[2017-04-10] MEDS: LORAZEPAM 0.5 MG TAB PO PRN (21:03)
[2017-04-11 04:00] VITALS: BP 158/61; PULSE 61; TEMP 36.5; O2SAT 93
[2017-04-11 06:23] LABS: INR 3.1 (0.9-1.1)
[2017-04-11 06:37] LABS: CREATININE 0.99 mg/dl (0.60-1.40); POTASSIUM 3.7 mmol/L (3.5-5.1)
[2017-04-11 07:23] VITALS: BP 173/69; PULSE 61; TEMP 36.6; O2SAT 96
--- NOTE | 2017-04-11 08:33 | DIAGNOSTIC IMAGING REPORT ---
(BARIUM SWALLOW) ESOPHAGUS CLINICAL HISTORY: 76 years-old Male presenting with cough, possible GERD, possible aspiration. TECHNIQUE: A standard air contrast barium esophagram is performed. Multiple spot images of the esophagus are acquired both upright and prone. COMPARISON: None. FINDINGS: The patient was able to ingest barium, however, the barium pill was not able to be ingested and was expectorated. Trace laryngeal penetration may be present. No aspiration. Normal mucosal pattern of the esophagus. No evidence of intrinsic or extrinsic mass lesion. The gastroesophageal junction distended normally. A small hiatal hernia suspected. Fluoroscopy dosage (mGy): Not available. Fluoroscopy time: 1 minute. Number of fluoroscopic spot images: 25. IMPRESSION: 1. Small hiatal hernia suspected. 2. Otherwise normal esophagus. 3. Trace laryngeal penetration suspected. 4. The patient was unable to ingest the barium pill, and the pill was expectorated. Electronically signed by: Oliver Bird M.D. 04/11/2017 8:32 AM Dictated Date/Time: 04/11/2017 8:27 AM
[2017-04-11] MEDS: FAMOTIDINE 20 MG TAB PO SCH ×3 (09:06→17:32)
[2017-04-11] MEDS: POTASSIUM CHLORIDE 10 MEQ TABCR PO SCH (09:07)
[2017-04-11] MEDS: LISINOPRIL 40 MG TAB PO SCH (09:07)
[2017-04-11] MEDS: TAMSULOSIN HCL 0.4 MG CAP PO SCH (09:08)
[2017-04-11] MEDS: MAGNESIUM OXIDE 400 MG TAB PO SCH ×2 (09:08→21:05)
[2017-04-11] MEDS: AMLODIPINE BESYLATE 5 MG TAB PO SCH (09:09)
[2017-04-11] MEDS: AMIODARONE 200 MG TAB PO SCH (09:09)
[2017-04-11] MEDS: ASPIRIN 81 MG ECTAB PO SCH (09:09)
[2017-04-11] MEDS: DOXYCYCLINE HYCLATE 100 MG CAP PO SCH ×2 (09:10→22:02)
[2017-04-11] MEDS: METOPROLOL SUCC 50MG EXT REL TAB PO SCH (09:10)
[2017-04-11] MEDS: POLYETHYLENE (MIRALAX) 17 GM PACK PO SCH ×2 (09:11→21:09)
[2017-04-11] MEDS: NYSTATIN POWDER 15GM BTL EXT SCH ×3 (09:12→21:09)
[2017-04-11] MEDS: SALMETEROL XINAFOATE 50MCG 28 BLISTER INH INH SCH ×2 (09:12→21:09)
[2017-04-11] MEDS: DOCUSATE SODIUM 100 MG CAP PO SCH ×2 (09:12→21:05)
[2017-04-11] MEDS: FUROSEMIDE INJ 20 MG in SYRINGE 0 ML IV SCH ×2 (09:34→17:32)
[2017-04-11] MEDS: LORAZEPAM 0.5 MG TAB PO PRN ×2 (09:42→15:54)
[2017-04-11 11:58] VITALS: BP 135/64; PULSE 61; TEMP 36.9; O2SAT 93
--- NOTE | 2017-04-11 13:26 | Neurology Consultation ---
Neurology Consultation Date of Consultation: Apr 11, 2017. Attending Physician: Olaf Gabriel M.D. Primary Care Physician: Felix Dorado Reason for Consultation: memory defects History of Present Illness Source: patient Dallin is a 76 year old male with a PMH paroxysmal a-fib on Coumadin and amiodarone, HTN, CAD s/p CABG in 2016, hx TIA, chronic hyponatremia, COPD, s/p thoracic aortic aneurysm repair who was brought to the ED from his PCP for r/o of CHF vs PNA with a 6 day history of cough. he had progressive weakness since R TKA in 02/18. He went home 03/12/17 and fell multiple times. He was in [facility] for 2 weeks and 03/30/17 to [facility]. He is wearing compression stockings. Denies fever chills night sweats, CP, SOB, abdominal pain, + LE weakness bilaterally. He states he has had on going memory problems but he thinks they are worse now. He is a patient of neurology and sees Dr Larkin for neuropathy and memory mild memory issues. Past Medical/Surgical History Medical Problems: (1) Abscess Status: Acute (2) Anticoagulation adequate with anticoagulant therapy Status: Acute (3) Bleeding gums Status: Acute (4) Bleeding gums Status: Acute (5) CHF (congestive heart failure) Status: Acute (6) Contusion of left chest wall Status: Acute (7) Contusion of multiple sites Status: Acute (8) Elevated troponin Status: Acute (9) Epistaxis Status: Acute (10) Fall Status: Acute (11) Generalized weakness Status: Acute (12) Hematoma Status: Acute (13) Hypoxia Status: Acute (14) Knee effusion, right Status: Acute (15) Laceration of left elbow Status: Acute (16) Pneumonia Status: Acute Social History Smoking Status: Former smoker Smokeless Tobacco Use: No Alcohol Use: none Drug Use: none Marital Status: Occupation Status: retired Allergies Coded Allergies: Guaifenesin (Verified Adverse Reaction, Unknown, GETS REALLY SICK FROM MUCINEX, 04/06/17) Current Inpatient Medications Current Inpatient Medications Medications (Trade) Dose Ordered Sig/Martine Route Start Time Stop Time Status Last Admin Dose Admin Acetaminophen (Tylenol Tab) 650 mg Q4H PRN PO 04/05/17 17:30 05/05/17 17:29 Nitroglycerin (Nitrostat Tab) 0.4 mg UD PRN SL 04/05/17 17:30 05/05/17 17:29 Polyethylene (Miralax Powder Packet) 17 gm DAILY PRN PO 04/05/17 17:30 05/05/17 17:29 04/06/17 20:37 17 GM Nystatin (Mycostatin Powder) 1 appln TID EXT 04/05/17 21:00 05/05/17 20:59 04/11/17 09:12 1 APPLN Ipratropium [place] (Atrovent 0.02% 0.5MG/2.5ML Neb) 0.5 mg Q4H PRN INH 04/05/17 18:00 05/05/17 17:59 04/08/17 05:00 0.5 MG Levalbuterol (Xopenex 0.63 Mg/ 3 Ml Neb) 0.63 mg Q4H PRN INH 04/05/17 18:00 05/05/17 17:59 04/08/17 05:00 0.63 MG Furosemide 20 mg/ Syringe 2 ml @ 4 mls/min BID17 IV 04/06/17 09:00 05/06/17 08:59 Future hold 04/11/17 09:34 4 MLS/MIN Prednisone (PredniSONE TAB) 40 mg DAILY PO 04/05/17 18:30 05/05/17 18:29 04/11/17 09:10 40 MG Amiodarone HCl (Cordarone Tab) 200 mg QAM PO 04/06/17 09:00 05/06/17 08:59 04/11/17 09:09 200 MG Aspirin (Ecotrin Tab) 81 mg QAM PO 04/06/17 09:00 05/06/17 08:59 04/11/17 09:09 81 MG Atorvastatin Calcium (Lipitor Tab) 20 mg HS PO 04/05/17 21:00 05/05/17 20:59 04/10/17 20:59 20 MG Docusate Sodium (coLACE CAP) 100 mg BID PO 04/05/17 21:00 05/05/17 20:59 04/11/17 09:12 100 MG Fluticasone Propionate (Flonase Nasal [place]) 2 sprays DAILY PRN PILI 04/05/17 18:30 05/05/17 18:29 Lorazepam (Ativan Tab) 0.5 mg BID PRN PO 04/05/17 18:30 05/05/17 18:29 04/11/17 09:42 0.5 MG Magnesium Oxide (Mag-Ox Tab) 400 mg BID PO 04/05/17 21:00 05/05/17 20:59 04/11/17 09:08 400 MG Potassium Chloride (Klor-Con M10) 10 meq QAM PO 04/06/17 09:00 05/06/17 08:59 04/11/17 09:07 10 MEQ Salmeterol Xinafoate (Serevent Diskus Inh) 1 puffs BID INH 04/05/17 21:00 05/05/17 20:59 04/11/17 09:12 1 PUFFS Tamsulosin HCl (Flomax Cap) 0.4 mg DAILY PO 04/06/17 09:00 05/06/17 08:59 04/11/17 09:08 0.4 MG Trazodone HCl (Desyrel Tab) 50 mg HS PRN PO 04/05/17 18:30 05/05/17 18:29 04/06/17 20:37 50 MG Benzonatate (Tessalon Perles Cap) 100 mg Q8H PRN PO 04/06/17 01:45 05/06/17 01:44 04/10/17 02:33 100 MG Doxycycline Hyclate (Vibramycin Cap) 100 mg BID PO 04/07/17 09:00 04/14/17 08:59 04/11/17 09:10 100 MG Polyethylene (Miralax Powder Packet) 17 gm BID PO 04/07/17 09:00 05/07/17 08:59 04/11/17 09:11 17 GM Lisinopril (Zestril Tab) 40 mg DAILY PO 04/09/17 09:00 05/06/17 08:59 04/11/17 09:07 40 MG Famotidine (Pepcid Tab) 20 mg PC PO 04/09/17 09:00 05/05/17 20:59 04/11/17 09:06 20 MG Metoprolol Succinate (Toprol Xl Tab) 50 mg QAM PO 04/09/17 09:00 05/09/17 08:59 04/11/17 09:10 50 MG Amlodipine Besylate (Norvasc Tab) 5 mg QAM PO 04/09/17 09:00 05/09/17 08:59 04/11/17 09:09 5 MG Warfarin Sodium (Coumadin Tab) 2.5 mg DAILY@16 PO 04/10/17 16:00 05/10/17 15:59 04/10/17 16:36 2.5 MG Physical Exam Vital Signs (Past 24 Hrs): Date Time Temp Pulse Resp B/P (MAP) Pulse Ox O2 Delivery O2 Flow Rate FiO2 04/11/17 11:58 36.9 61 18 135/64 (87) 93 04/11/17 11:34 Room Air 04/11/17 08:35 Room Air 04/11/17 07:23 36.6 61 18 173/69 (103) 96 04/11/17 04:00 36.5 61 22 158/61 (93) 93 Room Air 04/11/17 04:00 Room Air 04/11/17 00:00 Room Air 04/10/17 22:48 36.5 60 18 148/63 (91) 96 Room Air 04/10/17 20:00 Room Air 04/10/17 19:34 36.6 57 18 153/62 (92) 95 Room Air 04/10/17 16:00 Room Air 04/10/17 15:33 58 18 139/63 (88) 94 Room Air Physical Exam: Constitutional: appearance nourished, healthy and normal Ears, Nose, Mouth and Throat: mucous membranes moist, no injection and skin normal, eyes normal Cardiovascular: irregular Respiratory: coarse breath sounds Musculoskeletal: decreased distal pulses, appears to have pitting edema but has TEDS in place Skin: no stigmata of neurocutaneous disease noted and normal and intact Eyes: extraocular muscles intact (EOMI) and pupils equal, round and reactive to light (PERRL) NEUROLOGIC EXAMINATION: Mental status: Alert and interactive Oriented [facility], 2018, president carlos, then tells me he has trouble with remembering where he puts things and things he needs to do but can't be specific. Oriented to person, can say no ifs ands or but, close eye stick out tongue point to ceiling Speech fluent with no evidence of aphasia Cranial Nerves smile eye brow raise, tongue midline Reflexes: difficult eliciting reflexes in LE, absent in plantar Coordination: finger to nose with no bi pass, no tremor Gait/Stance: Posture sitting in bed side chair needs assistance from arm of chair and with standing Motor: Negative for pronator drift of out stretched arms with eyes closed. Strength: biceps triceps hand job putter up and ticket preparer intrinsics 5/5 bilaterally hip flex plantar flex ext bilaterally 4+/5 Laboratory Results Past 24 Hours: 04/11/17 05:33 Test 04/11/17 05:33 Prothrombin Time 32.1 SECONDS (9.0-12.0) Prothromb Time International Ratio 3.1 (0.9-1.1) Anion Gap 6.0 mmol/L (3-11) Est Creatinine Clear Calc Drug Dose 73.2 ml/min Estimated GFR () 85.4 Estimated GFR (Non- 73.7 BUN/Creatinine Ratio 24.3 (10-20) Calcium Level 8.0 mg/dl (8.5-10.1) Magnesium Level 2.1 mg/dl (1.8-2.4) Imaging TTE * Aortic valve sclerosis mild, without significant aortic valvular stenosis. * The left ventricle is normal in size. * Ejection Fraction = 55-60%. * The right ventricular systolic function is normal. * The left atrium is moderately dilated. * The right atrium is mildly dilated. * No significant valvular pathology. * NO ASD Impression 76 year old male extensive PMH including mild cognitive issues, patient of Dr Larkin/neurology Plan 1. TTE - no ASD 2. MRI brain combo for further evaluation of lesion or stroke 3. folate, b12, RPR 4. PT/OT for discharge needs- will need rehab/ or SNF with rehab 5. cardiology on board 6. fall precautions will follow up with Dr Larkin neurology as outpatient in 2-3 weeks after discharge from rehab and current health issues are addressed Dr Larkin will further evaluate the memory issues as he has previously seen Mr Hernandez. I have seen and discussed above patient with Dr Jodi Qureshi, neurology Pt not available at bedside. Discussed with Dr Larkin. Poss [facility].REc MRI, labs. Pt to see Dr Larkin as outpt, he will manage further work-up. NICOLE Qureshi MD
[2017-04-11] MEDS: WARFARIN SOD 2.5 MG TAB PO SCH (15:45)
[2017-04-11 15:49] VITALS: BP 159/63; PULSE 66; TEMP 36.5; O2SAT 94
--- NOTE | 2017-04-11 17:11 | DIAGNOSTIC IMAGING REPORT ---
Brain MRI WITH AND WITHOUT CONTRAST HISTORY: new worsening memory issues r/o lesion stroke TECHNIQUE: Multiplanar multisequence MRI of the brain was performed both before and after the intravenous administration of contrast. COMPARISON STUDY: Head CT 10/21/2014. FINDINGS: There are no areas of restricted diffusion to suggest acute infarction. The midline structures are intact. Mild mucosal thickening within the right maxillary sinus. Stable mild ventriculomegaly.. The mastoid air cells are clear. There is no mass, hematoma, midline shift. The major vascular flow-voids at the skull base are well maintained. Postcontrast sequences show no areas of abnormal enhancement. IMPRESSION: 1. No acute intracranial abnormality. 2. Stable mild ventriculomegaly. Electronically signed by: Andres Swanson M.D. 04/11/2017 5:10 PM Dictated Date/Time: 04/11/2017 5:02 PM
--- NOTE | 2017-04-11 20:04 | Progress Note ---
Medicine Progress Note Date & Time of Visit: Apr 11, 2017 at 19:45 . Subjective CC: Follow-up visit for multiple problems. HPI: No fever. Persistent congested cough. No chest pain. No nausea or vomiting. No diarrhea. Lower extremity edema improved. Voiding without difficulty. Requesting consultation with Dr. De Jesus regarding recent right TKA. Ambulated in hallway with PT today. ROS: General- as noted above in HPI Resp- as noted above in HPI Cardiac- as noted above in HPI GI- as noted above in HPI - as noted above in HPI . Objective Last 8 Hrs Date Time Temp Pulse Resp B/P (MAP) Pulse Ox O2 Delivery O2 Flow Rate FiO2 04/11/17 16:00 Room Air 04/11/17 15:49 36.5 66 18 159/63 (95) 94 Room Air Physical Exam: General- sitting in chair; no distress Lungs- few bibasilar rales; decreased breath sounds right base; minimal wheezing ; no respiratory distress Cardiovascular- RRR; I/ systolic murmur at base; no gallop appreciated; 1+ pretibial edema Abdomen- + bowel sounds, soft, nontender Extremities- no cyanosis; no calf tenderness; wearing TEDS Neuro- alert, oriented Skin- warm & dry . Laboratory Results: Last 24 Hours Test 04/11/17 05:33 Prothrombin Time 32.1 SECONDS Prothromb Time International Ratio 3.1 Sodium Level 131 mmol/L Potassium Level 3.7 mmol/L Chloride Level 96 mmol/L Carbon Dioxide Level 29 mmol/L Anion Gap 6.0 mmol/L Blood Urea Nitrogen 24 mg/dl Creatinine 0.99 mg/dl Est Creatinine Clear Calc Drug Dose 73.2 ml/min Estimated GFR () 85.4 Estimated GFR (Non- 73.7 BUN/Creatinine Ratio 24.3 Random Glucose 87 mg/dl Calcium Level 8.0 mg/dl Magnesium Level 2.1 mg/dl Assessment & Plan CHF Exam, chest x-ray, and elevated BNP consistent with CHF. Echo demonstrates normal LVEF, no significant valvular pathology. 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 Weight down 7.4 kg (per built-in bedscale). Chest x-ray 04/09 showed persistent pulmonary edema. Continue IV furosemide. Check f/u labs and chest x-ray tomorrow. POSSIBLE LOWER RESPIRATORY TRACT INFECTION Productive cough at time of admission. Afebrile. No definite infiltrates on chest x-ray. TOW MOTOR DRIVER swab for influenza A/B Ag negative. Cough may be secondary to CHF or bronchitis. Stopped IV antibiotics. Rx for possible bronchitis with doxycycline. Cough generally improve (coughing last night, none during my assessment). POSSIBLE ASPIRATION Seen CARBIDE POWDER PROCESSOR for bedside swallowing eval. No overt aspiration appreciated. Barium esophagram - small hiatal hernia, no aspiration. CORONARY ARTERY DISEASE History ischemic heart disease, s/p CABG. No anginal symptoms. Slightly elevated troponins (0.063, 0.059, 0.036) probably due to CHF or infection, not acute coronary syndrome. Metoprolol held due to bradycardia, restarted at reduced dose. Continue aspirin and statin. PAROXYSMAL ATRIAL FIBRILLATION Continue amiodarone. Metoprolol held due to bradycardia, restarted at reduced dose. Continue warfarin. HYPERTENSION Metoprolol held due to bradycardia, restarted at reduced dose. BP ran high after reducing dose of metoprolol. Added amlodipine. Continue lisinopril. BP's improved. Follow and titrate Rx. COPD Bronchospasm could be secondary to bronchitis or CHF. Oxygenating well. DC prednisone. Incentive spirometry. Continue bronchodilators. GERD Continue famotidine. BPH Byrd catheter inserted at time of admission. Voiding well since removal. Continue tamsulosin. HEMATURIA Probably secondary to Byrd insertion. Resolved. S/P RIGHT TKA 02/06/[address] De Jesus see him during hospital stay. Continue PT. POOR SHORT TERM MEMORY Sister concerned about problems with short-term memory. Patient acknowledges some difficulties. Neuro consult requested. VTE PROPHYLAXIS Continue warfarin. Ambulate. DISPOSITION Expected return to [facility] with PT / OT. Family Medicine follow-up with Dr. Roldan. . Current Inpatient Medications: Current Inpatient Medications Medications (Trade) Dose Ordered Sig/Martine Route Start Time Stop Time Status Last Admin Dose Admin Acetaminophen (Tylenol Tab) 650 mg Q4H PRN PO 04/05/17 17:30 05/05/17 17:29 Nitroglycerin (Nitrostat Tab) 0.4 mg UD PRN SL 04/05/17 17:30 05/05/17 17:29 Polyethylene (Miralax Powder Packet) 17 gm DAILY PRN PO 04/05/17 17:30 05/05/17 17:29 04/06/17 20:37 17 GM Nystatin (Mycostatin Powder) 1 appln TID EXT 04/05/17 21:00 05/05/17 20:59 04/11/17 14:25 1 APPLN Ipratropium [place] (Atrovent 0.02% 0.5MG/2.5ML Neb) 0.5 mg Q4H PRN INH 04/05/17 18:00 05/05/17 17:59 04/08/17 05:00 0.5 MG Levalbuterol (Xopenex 0.63 Mg/ 3 Ml Neb) 0.63 mg Q4H PRN INH 04/05/17 18:00 05/05/17 17:59 04/08/17 05:00 0.63 MG Furosemide 20 mg/ Syringe 2 ml @ 4 mls/min BID17 IV 04/06/17 09:00 05/06/17 08:59 Future hold 04/11/17 17:32 4 MLS/MIN Amiodarone HCl (Cordarone Tab) 200 mg QAM PO 04/06/17 09:00 05/06/17 08:59 04/11/17 09:09 200 MG Aspirin (Ecotrin Tab) 81 mg QAM PO 04/06/17 09:00 05/06/17 08:59 04/11/17 09:09 81 MG Atorvastatin Calcium (Lipitor Tab) 20 mg HS PO 04/05/17 21:00 05/05/17 20:59 04/10/17 20:59 20 MG Docusate Sodium (coLACE CAP) 100 mg BID PO 04/05/17 21:00 05/05/17 20:59 04/11/17 09:12 100 MG Fluticasone Propionate (Flonase Nasal [place]) 2 sprays DAILY PRN PILI 04/05/17 18:30 05/05/17 18:29 Lorazepam (Ativan Tab) 0.5 mg BID PRN PO 04/05/17 18:30 05/05/17 18:29 04/11/17 15:54 0.5 MG Magnesium Oxide (Mag-Ox Tab) 400 mg BID PO 04/05/17 21:00 05/05/17 20:59 04/11/17 09:08 400 MG Potassium Chloride (Klor-Con M10) 10 meq QAM PO 04/06/17 09:00 05/06/17 08:59 04/11/17 09:07 10 MEQ Salmeterol Xinafoate (Serevent Diskus Inh) 1 puffs BID INH 04/05/17 21:00 05/05/17 20:59 04/11/17 09:12 1 PUFFS Tamsulosin HCl (Flomax Cap) 0.4 mg DAILY PO 04/06/17 09:00 05/06/17 08:59 04/11/17 09:08 0.4 MG Trazodone HCl (Desyrel Tab) 50 mg HS PRN PO 04/05/17 18:30 05/05/17 18:29 04/06/17 20:37 50 MG Benzonatate (Tessalon Perles Cap) 100 mg Q8H PRN PO 04/06/17 01:45 05/06/17 01:44 04/10/17 02:33 100 MG Doxycycline Hyclate (Vibramycin Cap) 100 mg BID PO 04/07/17 09:00 04/14/17 08:59 04/11/17 09:10 100 MG Polyethylene (Miralax Powder Packet) 17 gm BID PO 04/07/17 09:00 05/07/17 08:59 04/11/17 09:11 17 GM Lisinopril (Zestril Tab) 40 mg DAILY PO 04/09/17 09:00 05/06/17 08:59 04/11/17 09:07 40 MG Famotidine (Pepcid Tab) 20 mg PC PO 04/09/17 09:00 05/05/17 20:59 04/11/17 17:32 20 MG Metoprolol Succinate (Toprol Xl Tab) 50 mg QAM PO 04/09/17 09:00 05/09/17 08:59 04/11/17 09:10 50 MG Amlodipine Besylate (Norvasc Tab) 5 mg QAM PO 04/09/17 09:00 05/09/17 08:59 04/11/17 09:09 5 MG Warfarin Sodium (Coumadin Tab) 2.5 mg DAILY@16 PO 04/10/17 16:00 05/10/17 15:59 04/11/17 15:45 2.5 MG
[2017-04-11] MEDS: ATORVASTATIN 20 MG TAB PO SCH (21:06)
[2017-04-11] MEDS: TRAZODONE HCL 50 MG TAB PO PRN (22:04)
[2017-04-11 23:30] VITALS: BP 164/63; PULSE 57; TEMP 36.5; O2SAT 95
[2017-04-12] VITALS (7 sets, daily range): BP systolic 114–184; BP diastolic 45–80; PULSE 53–59; TEMP 36.4–36.7; O2SAT 92–98
[2017-04-12 06:36] LABS: INR 2.9 (0.9-1.1)
[2017-04-12 07:04] LABS: CALCIUM 8.3 mg/dl (8.5-10.1); CREATININE 1.08 mg/dl (0.60-1.40); POTASSIUM 3.9 mmol/L (3.5-5.1)
[2017-04-12] MEDS: DOCUSATE SODIUM 100 MG CAP PO SCH ×2 (07:48→20:58)
[2017-04-12] MEDS: METOPROLOL SUCC 50MG EXT REL TAB PO SCH (07:49)
[2017-04-12] MEDS: LISINOPRIL 40 MG TAB PO SCH (07:49)
[2017-04-12] MEDS: ASPIRIN 81 MG ECTAB PO SCH (07:50)
[2017-04-12] MEDS: POTASSIUM CHLORIDE 10 MEQ TABCR PO SCH (07:50)
[2017-04-12] MEDS: AMLODIPINE BESYLATE 5 MG TAB PO SCH (07:51)
[2017-04-12] MEDS: AMIODARONE 200 MG TAB PO SCH (07:51)
[2017-04-12] MEDS: TAMSULOSIN HCL 0.4 MG CAP PO SCH (07:51)
[2017-04-12] MEDS: FAMOTIDINE 20 MG TAB PO SCH ×3 (07:52→18:21)
[2017-04-12] MEDS: SALMETEROL XINAFOATE 50MCG 28 BLISTER INH INH SCH ×2 (07:52→20:58)
[2017-04-12] MEDS: DOXYCYCLINE HYCLATE 100 MG CAP PO SCH ×2 (07:53→20:58)
[2017-04-12] MEDS: MAGNESIUM OXIDE 400 MG TAB PO SCH ×2 (07:53→20:58)
[2017-04-12] MEDS: NYSTATIN POWDER 15GM BTL EXT SCH ×3 (07:54→20:58)
[2017-04-12] MEDS: POLYETHYLENE (MIRALAX) 17 GM PACK PO SCH ×2 (07:54→20:59)
--- NOTE | 2017-04-12 07:54 | PROGRESS NOTE ---
DATE: 04/12/2017 SUBJECTIVE: A 76-year-old gentleman who is now about 2 months out from a right knee replacement. He was at the [facility] and transferred here several days ago for congestive heart failure. We have been consulted for management of his knee replaced which is now about 2 months out. His knee is doing well. He states that it just feels weak. He states that he is getting sporadic therapy. Not much pain. OBJECTIVE: VITAL SIGNS: Temperature is 36.4. Vital signs stable. GENERAL: Reveals a pleasant elderly male. He is sitting in his bedside chair and looks comfortable. EXTREMITIES: Examination of the right leg reveals incision to be healed nicely. There is not much swelling at all. His edema is markedly improved. He has good straight leg raise. Range of motion is about 5-120. No instability. He is neurologically intact. ASSESSMENT: A 76-year-old gentleman about 2 months out from right knee replacement, doing well. His quad is functioning quite well. He feels subjectively weak but is functioning well and just needs time and rehabilitation. His knee is working well. There are no signs of problems. PLAN: I would recommend continued therapy. I really do not need to see him back for 4-6 weeks. We will check on him while he is in the hospital. Any orthopedic questions can be directed to me at [phone].
[2017-04-12] MEDS: LORAZEPAM 0.5 MG TAB PO PRN (09:11)
[2017-04-12] MEDS: FUROSEMIDE INJ 20 MG in SYRINGE 0 ML IV SCH (09:11)
--- NOTE | 2017-04-12 10:56 | DIAGNOSTIC IMAGING REPORT ---
CHEST 2 VIEWS ROUTINE CLINICAL HISTORY: CHF, cough dyspnea COMPARISON STUDY: 04/09/2017 FINDINGS: Considerable improvement in aeration right and to lesser extent left lung base. Residual right basilar atelectatic change combined with a small right effusion. Mid to upper lungs are considered clear. Mild stable cardiomegaly. Prior median sternotomy. IMPRESSION: Improved exam from the prior study. Improved congestive failure. Improved aeration of the lung bases. The above report was generated using voice recognition software. It may contain grammatical, syntax or spelling errors. Electronically signed by: Moreno Cotto M.D. 04/12/2017 10:55 AM Dictated Date/Time: 04/12/2017 10:53 AM
[2017-04-12] MEDS: WARFARIN SOD 2.5 MG TAB PO SCH (16:05)
[2017-04-12] MEDS: ATORVASTATIN 20 MG TAB PO SCH (20:58)
[2017-04-12] MEDS: GUAIFENESIN SUGAR FREE 100 MG/5 ML UDC PO SCH (20:59)
[2017-04-12] MEDS: TRAZODONE HCL 50 MG TAB PO PRN (23:15)
[2017-04-13] VITALS (7 sets, daily range): BP systolic 109–170; BP diastolic 48–70; PULSE 54–86; TEMP 36.4–36.8; O2SAT 93–96
--- NOTE | 2017-04-13 03:39 | Progress Note ---
Medicine Progress Note Date & Time of Visit: Apr 12, 2017 at 16:30 . Subjective CC: Follow-up visit for multiple problems. HPI: No fever. Cough worse this afternoon. No chest pain. No nausea or vomiting. No diarrhea. Lower extremity edema improved. Voiding without difficulty. ROS: General- as noted above in HPI Resp- as noted above in HPI Cardiac- as noted above in HPI GI- as noted above in HPI - as noted above in HPI . Objective Last 8 Hrs Date Time Temp Pulse Resp B/P (MAP) Pulse Ox O2 Delivery O2 Flow Rate FiO2 04/13/17 00:00 93 Room Air 04/12/17 23:25 36.7 58 20 142/57 (85) 93 Room Air 04/12/17 20:00 Room Air 04/12/17 19:53 36.4 59 20 118/45 (69) 92 Room Air Physical Exam: General- sitting in chair; no distress Lungs- few bibasilar rales; decreased breath sounds right base; minimal wheezing ; no respiratory distress Cardiovascular- RRR; I/ systolic murmur at base; no gallop appreciated; 1+ pretibial edema Abdomen- + bowel sounds, soft, nontender Extremities- no cyanosis; no calf tenderness; wearing TEDS Neuro- alert, oriented Skin- warm & dry . Laboratory Results: Last 24 Hours Test 04/12/17 05:56 Prothrombin Time 29.4 SECONDS Prothromb Time International Ratio 2.9 Sodium Level 132 mmol/L Potassium Level 3.9 mmol/L Chloride Level 96 mmol/L Carbon Dioxide Level 31 mmol/L Anion Gap 5.0 mmol/L Blood Urea Nitrogen 27 mg/dl Creatinine 1.08 mg/dl Est Creatinine Clear Calc Drug Dose 67.7 ml/min Estimated GFR () 76.9 Estimated GFR (Non- 66.3 BUN/Creatinine Ratio 24.9 Random Glucose 84 mg/dl Calcium Level 8.3 mg/dl Vitamin B12 Level 605 pg/mL Folate 13.60 ng/mL Rapid Plasma Reagin NONREACTIVE Assessment & Plan CHF Exam, chest x-ray, and elevated BNP consistent with CHF. Echo demonstrates normal LVEF, no significant valvular pathology. 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 Received IV furosemide with improvement of exam. Today's chest x-ray shows improved pulmonary vascular congestion. Transition to oral furosemide. POSSIBLE LOWER RESPIRATORY TRACT INFECTION Productive cough at time of admission. Afebrile. No definite infiltrates on chest x-ray (films show pulmonary edema +/- atelectasis vs infiltrate) REPAIRER swab for influenza A/B Ag negative. Cough may be secondary to CHF or bronchitis. Stopped IV antibiotics. Treated for possible bronchitis with doxycycline. No apparent aspiration per bedside SHIPPING SUPPORT CLERK eval or barium swallow. Cough worse today. Remains afebrile. Check sinus films. Change antibiotic therapy to amoxicillin / clavulanic acid. POSSIBLE ASPIRATION Seen SHIPPING SUPPORT CLERK for bedside swallowing eval. No overt aspiration appreciated. Barium esophagram - small hiatal hernia, no aspiration. CORONARY ARTERY DISEASE History ischemic heart disease, s/p CABG. No anginal symptoms. Slightly elevated troponins (0.063, 0.059, 0.036) probably due to CHF or infection, not acute coronary syndrome. Metoprolol held due to bradycardia, restarted at reduced dose. Continue aspirin and statin. PAROXYSMAL ATRIAL FIBRILLATION Continue amiodarone. Metoprolol held due to bradycardia, restarted at reduced dose. Continue warfarin. HYPERTENSION Metoprolol held due to bradycardia, restarted at reduced dose. BP ran high after reducing dose of metoprolol. Added amlodipine. Continue lisinopril. BP's improved. Follow and titrate Rx. COPD Bronchospasm could be secondary to bronchitis or CHF. Oxygenating well. DC prednisone. Incentive spirometry. Continue bronchodilators. GERD Continue famotidine. BPH Byrd catheter inserted at time of admission. Voiding well since removal. Continue tamsulosin. HEMATURIA Probably secondary to Ybrd insertion. Resolved. S/P RIGHT TKA 02/06/[address] De Jesus. Continue PT. POOR SHORT TERM MEMORY Sister concerned about problems with short-term memory. Patient acknowledges some difficulties. Neuro consult requested. MRI did not show any significant abnormalities. VTE PROPHYLAXIS Continue warfarin. Ambulate. DISPOSITION Expected return to [facility] with PT / OT. Family Medicine follow-up with Dr. Roldan. . Current Inpatient Medications: Current Inpatient Medications Medications (Trade) Dose Ordered Sig/Martine Route Start Time Stop Time Status Last Admin Dose Admin Acetaminophen (Tylenol Tab) 650 mg Q4H PRN PO 04/05/17 17:30 05/05/17 17:29 Nitroglycerin (Nitrostat Tab) 0.4 mg UD PRN SL 04/05/17 17:30 05/05/17 17:29 Polyethylene (Miralax Powder Packet) 17 gm DAILY PRN PO 04/05/17 17:30 05/05/17 17:29 04/06/17 20:37 17 GM Nystatin (Mycostatin Powder) 1 appln TID EXT 04/05/17 21:00 05/05/17 20:59 04/12/17 20:58 1 APPLN Ipratropium [place] (Atrovent 0.02% 0.5MG/2.5ML Neb) 0.5 mg Q4H PRN INH 04/05/17 18:00 05/05/17 17:59 04/08/17 05:00 0.5 MG Levalbuterol (Xopenex 0.63 Mg/ 3 Ml Neb) 0.63 mg Q4H PRN INH 04/05/17 18:00 05/05/17 17:59 04/08/17 05:00 0.63 MG Furosemide 20 mg/ Syringe 2 ml @ 4 mls/min BID17 IV 04/06/17 09:00 05/06/17 08:59 Future Hold 04/12/17 09:11 4 MLS/MIN Amiodarone HCl (Cordarone Tab) 200 mg QAM PO 04/06/17 09:00 05/06/17 08:59 04/12/17 07:51 200 MG Aspirin (Ecotrin Tab) 81 mg QAM PO 04/06/17 09:00 05/06/17 08:59 04/12/17 07:50 81 MG Atorvastatin Calcium (Lipitor Tab) 20 mg HS PO 04/05/17 21:00 05/05/17 20:59 04/12/17 20:58 20 MG Docusate Sodium (coLACE CAP) 100 mg BID PO 04/05/17 21:00 05/05/17 20:59 04/12/17 20:58 100 MG Fluticasone Propionate (Flonase Nasal [place]) 2 sprays DAILY PRN PILI 04/05/17 18:30 05/05/17 18:29 Lorazepam (Ativan Tab) 0.5 mg BID PRN PO 04/05/17 18:30 05/05/17 18:29 04/12/17 09:11 0.5 MG Magnesium Oxide (Mag-Ox Tab) 400 mg BID PO 04/05/17 21:00 05/05/17 20:59 04/12/17 20:58 400 MG Potassium Chloride (Klor-Con M10) 10 meq QAM PO 04/06/17 09:00 05/06/17 08:59 04/12/17 07:50 10 MEQ Salmeterol Xinafoate (Serevent Diskus Inh) 1 puffs BID INH 04/05/17 21:00 05/05/17 20:59 04/12/17 20:58 1 PUFFS Tamsulosin HCl (Flomax Cap) 0.4 mg DAILY PO 04/06/17 09:00 05/06/17 08:59 04/12/17 07:51 0.4 MG Trazodone HCl (Desyrel Tab) 50 mg HS PRN PO 04/05/17 18:30 05/05/17 18:29 04/12/17 23:15 50 MG Benzonatate (Tessalon Perles Cap) 100 mg Q8H PRN PO 04/06/17 01:45 05/06/17 01:44 04/10/17 02:33 100 MG Doxycycline Hyclate (Vibramycin Cap) 100 mg BID PO 04/07/17 09:00 04/14/17 08:59 04/12/17 20:58 100 MG Polyethylene (Miralax Powder Packet) 17 gm BID PO 04/07/17 09:00 05/07/17 08:59 04/12/17 20:59 17 GM Lisinopril (Zestril Tab) 40 mg DAILY PO 04/09/17 09:00 05/06/17 08:59 04/12/17 07:49 40 MG Famotidine (Pepcid Tab) 20 mg PC PO 04/09/17 09:00 05/05/17 20:59 04/12/17 18:21 20 MG Metoprolol Succinate (Toprol Xl Tab) 50 mg QAM PO 04/09/17 09:00 05/09/17 08:59 04/12/17 07:49 50 MG Amlodipine Besylate (Norvasc Tab) 5 mg QAM PO 04/09/17 09:00 05/09/17 08:59 04/12/17 07:51 5 MG Warfarin Sodium (Coumadin Tab) 2.5 mg DAILY@16 PO 04/10/17 16:00 05/10/17 15:59 04/12/17 16:05 2.5 MG Guaifenesin (Robitussin Sugar Free Syrup) 100 mg QID PO 04/12/17 21:00 05/12/17 20:59 04/12/17 20:59 100 MG
[2017-04-13 05:50] LABS: HEMATOCRIT 35.8 % (42-52); HEMOGLOBIN 11.7 g/dL (14.0-18.0); MEAN CELL VOLUME 87.7 fL (80-100); MEAN CORPUSCULAR HEMOGLOBIN 28.7 pg (25-34); MEAN CORPUSCULAR HGB CONC 32.7 g/dl (32-36); MEAN PLATELET VOLUME 9.4 fL (7.4-10.4); PLATELET COUNT 183 K/uL (130-400); RED CELL DISTRIBUTION WIDTH CV 14.3 % (11.5-14.5); RED CELL DISTRIBUTION WIDTH SD 46.4 fL (36.4-46.3)
[2017-04-13 06:03] LABS: CALCIUM 7.7 mg/dl (8.5-10.1); CREATININE 1.16 mg/dl (0.60-1.40); POTASSIUM 4.3 mmol/L (3.5-5.1)
--- NOTE | 2017-04-13 08:05 | DIAGNOSTIC IMAGING REPORT ---
SINUSES MIN 3 VIEWS ROUTINE CLINICAL HISTORY: cough, postnasal drainage COMPARISON STUDY: 05/16/2015 FINDINGS: No air-fluid levels are visualized. There is minimal Max sinus mucoperiosteal thickening. No bony destructive lesions are evident. Sphenoid sinus mucosal thickening/hypoplasia is also suspected. IMPRESSION: No conventional radiographic evidence of acute sinusitis Electronically signed by: Brijesh Zamora M.D. 04/13/2017 8:04 AM Dictated Date/Time: 04/13/2017 8:02 AM
[2017-04-13] MEDS: NYSTATIN POWDER 15GM BTL EXT SCH ×3 (08:44→19:57)
[2017-04-13] MEDS: MAGNESIUM OXIDE 400 MG TAB PO SCH ×2 (08:45→19:57)
[2017-04-13] MEDS: TAMSULOSIN HCL 0.4 MG CAP PO SCH (08:45)
[2017-04-13] MEDS: LISINOPRIL 40 MG TAB PO SCH (08:45)
[2017-04-13] MEDS: FAMOTIDINE 20 MG TAB PO SCH ×3 (08:45→17:06)
[2017-04-13] MEDS: POTASSIUM CHLORIDE 10 MEQ TABCR PO SCH (08:45)
[2017-04-13] MEDS: ASPIRIN 81 MG ECTAB PO SCH (08:46)
[2017-04-13] MEDS: POLYETHYLENE (MIRALAX) 17 GM PACK PO SCH ×2 (08:46→19:57)
[2017-04-13] MEDS: GUAIFENESIN SUGAR FREE 100 MG/5 ML UDC PO SCH ×4 (08:47→19:57)
[2017-04-13] MEDS: DOCUSATE SODIUM 100 MG CAP PO SCH ×2 (08:47→19:57)
[2017-04-13] MEDS: AMLODIPINE BESYLATE 5 MG TAB PO SCH (08:47)
[2017-04-13] MEDS: METOPROLOL SUCC 50MG EXT REL TAB PO SCH (08:47)
[2017-04-13] MEDS: AMIODARONE 200 MG TAB PO SCH (08:47)
[2017-04-13] MEDS: AMOXICILLIN/CLAVULANATE TAB 875 MG TAB PO SCH ×2 (08:48→16:55)
[2017-04-13] MEDS: SALMETEROL XINAFOATE 50MCG 28 BLISTER INH INH SCH ×2 (08:48→19:57)
[2017-04-13] MEDS: LORAZEPAM 0.5 MG TAB PO PRN (08:49)
--- NOTE | 2017-04-13 14:28 | NEUROLOGY CONSULTATION ---
DATE OF CONSULTATION: 04/13/2017 HISTORY OF PRESENT ILLNESS: I saw Mr. Hernandez yesterday. Jodi had seen him the day before in consultation. He was down at MRI when I came to see him. I spoke to Dr. Larkin regarding his history. Dr. Larkin had previously seen him for some concerns regarding mild cognitive impairment. He has had an MRI of the brain, which showed mild ventriculomegaly and it sounds like his current imaging study is unchanged. In speaking with him, he has some common difficulty with short-term memory for getting why he went into a room. He forgets some short-term details, although it sounds like some of this is superimposed on his recent medical illness. He has no significant family history of cognitive dysfunction. He has no personal history of stroke or closed head injury. In general, at the bedside, he is an excellent historian. IMPRESSION: This patient has some subjective memory concerns and in general has an excellent memory. It will be difficult to know if there is any mild cognitive impairment. Dr. Larkin will see him as an outpatient and consider a neuro psych testing to see if we can be more definitive. In general, I am struck by how well he does memory hensley and think some of the things he is complaining about are pretty normal for age. We will sign off and again the patient should see Dr. Larkin in followup.
[2017-04-13] MEDS ORDERED: FUROSEMIDE 40 MG TAB PO ONE (16:45)
[2017-04-13] MEDS: WARFARIN SOD 2.5 MG TAB PO SCH (16:55)
--- NOTE | 2017-04-13 19:34 | Progress Note ---
Internal Med Progress Note Date of Service: Apr 13, 2017. Provider Documentation: SUBJECTIVE: sitting on the commode seems comfortable says has cough and post nasal drip says s he thinks there was some bleeding from his gums but stoped now but nursing staff thinks it was ketchup. afebrile denies any chest pain or sob no nausea very talkative OBJECTIVE: Vital Signs-as noted below Exam: General-alert and oriented. Not in distress ENT-Normal hearing Neck-no neck masses Lungs-cta b/l no wheezing or crackles Heart-S 1 and S 2heard regular rate and rhythm no murmurs Abdomen-soft bowel sounds present non tender no distension Extremities-no edema no erythema Neuro-alert and awake moves extremities Lab data as noted below. ASSESSMENT & PLAN: CHF Acute on chronic diastolic chf echo normal ef received iv Lasix cxr improvement changing lasix to po 40mg daily and monitor. POSSIBLE LOWER RESPIRATORY TRACT INFECTION Productive cough at time of admission. treated with po doxycycline cough not improving started on Augmentin sinus x ray unremarkable julianne monitor POSSIBLE ASPIRATION Seen by LEAD PAINTER for bedside swallowing eval- unremarkable Barium esophagram - small hiatal hernia, no aspiration. CORONARY ARTERY DISEASE CAD, s/p CABG. No anginal symptoms. stable Initially Metoprolol held due to bradycardia, restarted at reduced dose. To continue aspirin and statin. PAROXYSMAL ATRIAL FIBRILLATION on amiodarone. Metoprolol held due to bradycardia but restarted at reduced dose. on warfarin.INR 3.0 today HYPERTENSION Metoprolol was held due to bradycardia and was restarted at reduced dose. BP was running high after reducing dose of metoprolol. amlodipine was added. on lisinopril. will monitor COPD Bronchospasm mostly secondary to bronchitis or CHF. Oxygenating well currently stopped prednisone. Incentive spirometry. To continue bronchodilators. GERD On famotidine. BPH Byrd catheter inserted at time of admission. Byrd was removed and Voiding well . Continue tamsulosin. HEMATURIA Probably secondary to Byrd insertion. Resolved. S/P RIGHT TKA 02/06/[address] De Jesus. Continue PT. POOR SHORT TERM MEMORY Seems Sister concerned about problems with short-term memory. Neuro consulted and wanted to f/u as out patient MRI unremarkable VTE PROPHYLAXIS On warfarin. Ambulate. DISPOSITION Expected return to [facility] with PT / OT. Family Medicine follow-up with Dr. Roldan. Vital Signs: Date Time Temp Pulse Resp B/P (MAP) Pulse Ox O2 Delivery O2 Flow Rate FiO2 04/13/17 16:00 Room Air 04/13/17 14:59 36.8 58 18 109/50 (69) 94 04/13/17 12:07 36.7 57 18 117/48 (71) 94 04/13/17 11:56 Room Air 04/13/17 08:04 36.4 54 18 170/70 (103) 96 04/13/17 07:50 Room Air 04/13/17 04:50 36.5 57 18 150/57 (88) 93 Room Air 04/13/17 04:00 Room Air 04/13/17 00:00 93 Room Air 04/12/17 23:25 36.7 58 20 142/57 (85) 93 Room Air 04/12/17 20:00 Room Air 04/12/17 19:53 36.4 59 20 118/45 (69) 92 Room Air Lab Results: Results Past 24 Hours Test 04/13/17 05:29 Range/Units White Blood Count 6.50 4.8-10.8 K/uL Red Blood Count 4.08 4.7-6.1 M/uL Hemoglobin 11.7 14.0-18.0 g/dL Hematocrit 35.8 42-52 % Mean Corpuscular Volume 87.7 80-100 fL Mean Corpuscular Hemoglobin 28.7 25-34 pg Mean Corpuscular Hemoglobin Concent 32.7 32-36 g/dl RDW Standard Deviation 46.4 36.4-46.3 fL RDW Coefficient of Variation 14.3 11.5-14.5 % Platelet Count 183 130-400 K/uL Mean Platelet Volume 9.4 7.4-10.4 fL Prothrombin Time 30.4 9.0-12.0 SECONDS Prothromb Time International Ratio 3.0 0.9-1.1 Sodium Level 133 136-145 mmol/L Potassium Level 4.3 3.5-5.1 mmol/L Chloride Level 100 98-107 mmol/L Carbon Dioxide Level 29 21-32 mmol/L Anion Gap 4.0 3-11 mmol/L Blood Urea Nitrogen 37 7-18 mg/dl Creatinine 1.16 0.60-1.40 mg/dl Est Creatinine Clear Calc Drug Dose 58.2 ml/min Estimated GFR () 70.5 Estimated GFR (Non- 60.8 BUN/Creatinine Ratio 31.6 10-20 Random Glucose 85 70-99 mg/dl Calcium Level 7.7 8.5-10.1 mg/dl
[2017-04-13] MEDS: ATORVASTATIN 20 MG TAB PO SCH (19:57)
[2017-04-13] MEDS: IPRATROPIUM BROMIDE NEB SOLN 0.02% 2.5 ML VIAL INH PRN (21:34)
[2017-04-13] MEDS: LEVALBUTEROL 0.63MG/3 ML NEB INH PRN (21:34)
[2017-04-13] MEDS: TRAZODONE HCL 50 MG TAB PO PRN (22:36)
[2017-04-14] VITALS (7 sets, daily range): BP systolic 132–161; BP diastolic 55–65; PULSE 54–57; TEMP 36.7–36.9; O2SAT 94–98
[2017-04-14] MEDS: IPRATROPIUM BROMIDE NEB SOLN 0.02% 2.5 ML VIAL INH PRN (04:08)
[2017-04-14] MEDS: LEVALBUTEROL 0.63MG/3 ML NEB INH PRN (04:08)
[2017-04-14] MEDS: SALMETEROL XINAFOATE 50MCG 28 BLISTER INH INH SCH ×2 (08:34→19:18)
[2017-04-14] MEDS: METOPROLOL SUCC 50MG EXT REL TAB PO SCH (08:35)
[2017-04-14] MEDS: MAGNESIUM OXIDE 400 MG TAB PO SCH ×2 (08:35→19:12)
[2017-04-14] MEDS: DOCUSATE SODIUM 100 MG CAP PO SCH ×2 (08:35→19:12)
[2017-04-14] MEDS: GUAIFENESIN SUGAR FREE 100 MG/5 ML UDC PO SCH ×4 (08:35→19:11)
[2017-04-14] MEDS: LISINOPRIL 40 MG TAB PO SCH (08:35)
[2017-04-14] MEDS: ASPIRIN 81 MG ECTAB PO SCH (08:36)
[2017-04-14] MEDS: TAMSULOSIN HCL 0.4 MG CAP PO SCH (08:36)
[2017-04-14] MEDS: AMIODARONE 200 MG TAB PO SCH (08:36)
[2017-04-14] MEDS: AMLODIPINE BESYLATE 5 MG TAB PO SCH (08:36)
[2017-04-14] MEDS: LORAZEPAM 0.5 MG TAB PO PRN (08:36)
[2017-04-14] MEDS: FAMOTIDINE 20 MG TAB PO SCH ×3 (08:37→16:28)
[2017-04-14] MEDS: POLYETHYLENE (MIRALAX) 17 GM PACK PO SCH (08:37)
[2017-04-14] MEDS: AMOXICILLIN/CLAVULANATE TAB 875 MG TAB PO SCH ×2 (08:37→16:24)
[2017-04-14] MEDS: FUROSEMIDE 40 MG TAB PO SCH (08:38)
[2017-04-14] MEDS: POTASSIUM CHLORIDE 10 MEQ TABCR PO SCH (08:38)
[2017-04-14] MEDS: NYSTATIN POWDER 15GM BTL EXT SCH ×3 (08:39→19:11)
[2017-04-14 09:55] LABS: INR 2.2 (0.9-1.1)
[2017-04-14 10:09] LABS: CALCIUM 8.1 mg/dl (8.5-10.1); CREATININE 1.08 mg/dl (0.60-1.40); POTASSIUM 3.7 mmol/L (3.5-5.1)
[2017-04-14] MEDS: WARFARIN SOD 2.5 MG TAB PO SCH (16:23)
--- NOTE | 2017-04-14 18:12 | Progress Note ---
Medicine Progress Note Date & Time of Visit: Apr 14, 2017 at 11:30 . Subjective CC: Follow-up visit for multiple problems. HPI: Had episodes of coughing and SOB last evening and during the night, improved after nebs. O2 sats and vital signs were stable. OK this morning. No fever. Occasional cough. No chest pain. No nausea or vomiting. No diarrhea. Lower extremity edema stable. Voiding without difficulty. No hematuria. ROS: General- as noted above in HPI Resp- as noted above in HPI Cardiac- as noted above in HPI GI- as noted above in HPI - as noted above in HPI . Objective Last 8 Hrs Date Time Temp Pulse Resp B/P (MAP) Pulse Ox O2 Delivery O2 Flow Rate FiO2 04/14/17 16:00 97 Room Air 04/14/17 15:48 36.9 54 18 132/55 (80) 97 Room Air 04/14/17 12:59 Room Air 04/14/17 12:19 36.7 57 18 149/65 (93) 94 Room Air Physical Exam: General- sitting in chair; no distress Lungs- few bibasilar rales; decreased breath sounds right base; mi;d wheezing; no respiratory distress Cardiovascular- RRR; I/ systolic murmur at base; no gallop appreciated; 1+ pretibial edema Abdomen- + bowel sounds, soft, nontender Extremities- no cyanosis; no calf tenderness; wearing TEDS Neuro- alert, oriented Skin- warm & dry . Laboratory Results: Last 24 Hours Test 04/14/17 09:08 Prothrombin Time 22.3 SECONDS Prothromb Time International Ratio 2.2 Sodium Level 134 mmol/L Potassium Level 3.7 mmol/L Chloride Level 100 mmol/L Carbon Dioxide Level 27 mmol/L Anion Gap 7.0 mmol/L Blood Urea Nitrogen 30 mg/dl Creatinine 1.08 mg/dl Est Creatinine Clear Calc Drug Dose 63.2 ml/min Estimated GFR () 76.9 Estimated GFR (Non- 66.3 BUN/Creatinine Ratio 28.0 Random Glucose 83 mg/dl Calcium Level 8.1 mg/dl Assessment & Plan CHF Exam, chest x-ray, and elevated BNP consistent with CHF. Echo demonstrates normal LVEF, no significant valvular pathology. 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 Received IV furosemide with improvement of exam. Chest x-ray 04/12 showed improved pulmonary vascular congestion. Transitioned to oral furosemide. Check repeat CXR tomorrow. POSSIBLE LOWER RESPIRATORY TRACT INFECTION Productive cough at time of admission. Afebrile. No definite infiltrates on chest x-ray (films show pulmonary edema +/- atelectasis vs infiltrate) BROADCAST OPERATIONS DIRECTOR swab for influenza A/B Ag negative. Cough may be secondary to CHF or bronchitis. Stopped IV antibiotics. Treated for possible bronchitis with doxycycline. No apparent aspiration per bedside CHURCH WORKER eval or barium swallow. Sinus films showed minimal mucosal thickening. Changed antibiotic therapy to amoxicillin / clavulanic acid. POSSIBLE ASPIRATION Seen CHURCH WORKER for bedside swallowing eval. No overt aspiration appreciated. Barium esophagram - small hiatal hernia, no aspiration. CORONARY ARTERY DISEASE History ischemic heart disease, s/p CABG. No anginal symptoms. Slightly elevated troponins (0.063, 0.059, 0.036) probably due to CHF or infection, not acute coronary syndrome. Metoprolol held due to bradycardia, restarted at reduced dose. Continue aspirin and statin. PAROXYSMAL ATRIAL FIBRILLATION Continue amiodarone. Metoprolol held due to bradycardia, restarted at reduced dose. Continue warfarin. HYPERTENSION Metoprolol held due to bradycardia, restarted at reduced dose. BP ran high after reducing dose of metoprolol. Added amlodipine. Continue lisinopril. BP's improved. Follow and titrate Rx. COPD Bronchospasm could be secondary to bronchitis or CHF. Oxygenating well. DC prednisone. Incentive spirometry. Continue bronchodilators. GERD Continue famotidine. BPH Byrd catheter inserted at time of admission. Voiding well since removal. Continue tamsulosin. HEMATURIA Probably secondary to Byrd insertion. Resolved. S/P RIGHT TKA 02/06/[address] De Jesus. Continue PT. POOR SHORT TERM MEMORY Sister concerned about problems with short-term memory. Patient acknowledges some difficulties. Neuro consult requested. MRI did not show any significant abnormalities. Consider outpatient neuropsych testing. VTE PROPHYLAXIS Continue warfarin. Ambulate. DISPOSITION Expected return to [facility] with PT / OT. Family Medicine follow-up with Dr. Roldan. . Current Inpatient Medications: Current Inpatient Medications Medications (Trade) Dose Ordered Sig/Martine Route Start Time Stop Time Status Last Admin Dose Admin Acetaminophen (Tylenol Tab) 650 mg Q4H PRN PO 04/05/17 17:30 05/05/17 17:29 Nitroglycerin (Nitrostat Tab) 0.4 mg UD PRN SL 04/05/17 17:30 05/05/17 17:29 Polyethylene (Miralax Powder Packet) 17 gm DAILY PRN PO 04/05/17 17:30 05/05/17 17:29 04/06/17 20:37 17 GM Nystatin (Mycostatin Powder) 1 appln TID EXT 04/05/17 21:00 05/05/17 20:59 04/14/17 12:55 1 APPLN Ipratropium [place] (Atrovent 0.02% 0.5MG/2.5ML Neb) 0.5 mg Q4H PRN INH 04/05/17 18:00 05/05/17 17:59 04/14/17 04:08 0.5 MG Levalbuterol (Xopenex 0.63 Mg/ 3 Ml Neb) 0.63 mg Q4H PRN INH 04/05/17 18:00 05/05/17 17:59 04/14/17 04:08 0.63 MG Amiodarone HCl (Cordarone Tab) 200 mg QAM PO 04/06/17 09:00 05/06/17 08:59 04/14/17 08:36 200 MG Aspirin (Ecotrin Tab) 81 mg QAM PO 04/06/17 09:00 05/06/17 08:59 04/14/17 08:36 81 MG Atorvastatin Calcium (Lipitor Tab) 20 mg HS PO 04/05/17 21:00 05/05/17 20:59 04/13/17 19:57 20 MG Docusate Sodium (coLACE CAP) 100 mg BID PO 04/05/17 21:00 05/05/17 20:59 04/14/17 08:35 100 MG Fluticasone Propionate (Flonase Nasal [place]) 2 sprays DAILY PRN PILI 04/05/17 18:30 05/05/17 18:29 Lorazepam (Ativan Tab) 0.5 mg BID PRN PO 04/05/17 18:30 05/05/17 18:29 04/14/17 08:36 0.5 MG Magnesium Oxide (Mag-Ox Tab) 400 mg BID PO 04/05/17 21:00 05/05/17 20:59 04/14/17 08:35 400 MG Potassium Chloride (Klor-Con M10) 10 meq QAM PO 04/06/17 09:00 05/06/17 08:59 04/14/17 08:38 10 MEQ Salmeterol Xinafoate (Serevent Diskus Inh) 1 puffs BID INH 04/05/17 21:00 05/05/17 20:59 04/14/17 08:34 1 PUFFS Tamsulosin HCl (Flomax Cap) 0.4 mg DAILY PO 04/06/17 09:00 05/06/17 08:59 04/14/17 08:36 0.4 MG Trazodone HCl (Desyrel Tab) 50 mg HS PRN PO 04/05/17 18:30 05/05/17 18:29 04/13/17 22:36 50 MG Benzonatate (Tessalon Perles Cap) 100 mg Q8H PRN PO 04/06/17 01:45 05/06/17 01:44 04/10/17 02:33 100 MG Polyethylene (Miralax Powder Packet) 17 gm BID PO 04/07/17 09:00 05/07/17 08:59 04/14/17 08:37 17 GM Lisinopril (Zestril Tab) 40 mg DAILY PO 04/09/17 09:00 05/06/17 08:59 04/14/17 08:35 40 MG Famotidine (Pepcid Tab) 20 mg PC PO 04/09/17 09:00 05/05/17 20:59 04/14/17 16:28 20 MG Metoprolol Succinate (Toprol Xl Tab) 50 mg QAM PO 04/09/17 09:00 05/09/17 08:59 04/14/17 08:35 50 MG Amlodipine Besylate (Norvasc Tab) 5 mg QAM PO 04/09/17 09:00 05/09/17 08:59 04/14/17 08:36 5 MG Warfarin Sodium (Coumadin Tab) 2.5 mg DAILY@16 PO 04/10/17 16:00 05/10/17 15:59 04/14/17 16:23 2.5 MG Guaifenesin (Robitussin Sugar Free Syrup) 100 mg QID PO 04/12/17 21:00 05/12/17 20:59 04/14/17 16:25 100 MG Amoxicillin/ Clavulanate Potassium (Augmentin Tab) 875 mg BIDM PO 04/13/17 08:00 04/20/17 07:59 04/14/17 16:24 875 MG Furosemide (Lasix Tab) 40 mg QAM PO 04/14/17 09:00 05/14/17 08:59 04/14/17 08:38 40 MG
[2017-04-14] MEDS: ATORVASTATIN 20 MG TAB PO SCH (19:12)
[2017-04-14] MEDS: DOCUSATE SODIUM/SENNA 50/8.6MG TAB PO SCH (19:17)
[2017-04-14] MEDS ORDERED: WARFARIN SOD 2.5 MG TAB PO ONE (21:00)
[2017-04-15 04:00] VITALS: O2SAT 97
[2017-04-15 05:25] VITALS: BP 160/60; PULSE 61; TEMP 36.7; O2SAT 93
[2017-04-15 07:47] VITALS: BP 170/56; PULSE 52; TEMP 36.4; O2SAT 97
--- NOTE | 2017-04-15 09:02 | DIAGNOSTIC IMAGING REPORT ---
CHEST 2 VIEWS ROUTINE CLINICAL HISTORY: f/u CHF, cough dyspnea COMPARISON STUDY: 04/12/2017 FINDINGS: Mild improvement compared to the prior study. Slightly diminished pulmonary vasculature. Mild prominence the cardiac silhouette persists. Prior median sternotomy. Trace amount pleural fluid at the right and to lesser extent left base is diminished with minimal if any residual. IMPRESSION: Improved exam. Diminished pulmonary vasculature as well as near complete resolution of the small pleural effusions. The above report was generated using voice recognition software. It may contain grammatical, syntax or spelling errors. Electronically signed by: Moreno Cotto M.D. 04/15/2017 9:01 AM Dictated Date/Time: 04/15/2017 9:00 AM
[2017-04-15] MEDS: POTASSIUM CHLORIDE 10 MEQ TABCR PO SCH (09:41)
[2017-04-15] MEDS: LORAZEPAM 0.5 MG TAB PO PRN (09:41)
[2017-04-15] MEDS: FUROSEMIDE 40 MG TAB PO SCH (09:41)
[2017-04-15] MEDS: AMLODIPINE BESYLATE 5 MG TAB PO SCH (09:42)
[2017-04-15] MEDS: ASPIRIN 81 MG ECTAB PO SCH (09:42)
[2017-04-15] MEDS: AMIODARONE 200 MG TAB PO SCH (09:42)
[2017-04-15] MEDS: LISINOPRIL 40 MG TAB PO SCH (09:42)
[2017-04-15] MEDS: SALMETEROL XINAFOATE 50MCG 28 BLISTER INH INH SCH ×2 (09:43→20:46)
[2017-04-15] MEDS: GUAIFENESIN SUGAR FREE 100 MG/5 ML UDC PO SCH ×4 (09:44→20:46)
[2017-04-15] MEDS: MAGNESIUM OXIDE 400 MG TAB PO SCH ×2 (09:44→20:46)
[2017-04-15] MEDS: DOCUSATE SODIUM/SENNA 50/8.6MG TAB PO SCH ×2 (09:44→20:47)
[2017-04-15] MEDS: DOCUSATE SODIUM 100 MG CAP PO SCH ×2 (09:45→20:46)
[2017-04-15] MEDS: FAMOTIDINE 20 MG TAB PO SCH ×3 (09:45→17:21)
[2017-04-15] MEDS: METOPROLOL SUCC 50MG EXT REL TAB PO SCH (09:45)
[2017-04-15] MEDS: TAMSULOSIN HCL 0.4 MG CAP PO SCH (09:45)
[2017-04-15] MEDS: NYSTATIN POWDER 15GM BTL EXT SCH ×3 (09:47→20:46)
[2017-04-15] MEDS: AMOXICILLIN/CLAVULANATE TAB 875 MG TAB PO SCH ×2 (10:13→15:43)
[2017-04-15 10:45] LABS: CALCIUM 8.2 mg/dl (8.5-10.1); CREATININE 1.1 mg/dl (0.60-1.40); POTASSIUM 4.4 mmol/L (3.5-5.1)
[2017-04-15 11:36] VITALS: BP 153/57; PULSE 55; TEMP 36.3; O2SAT 96
[2017-04-15] MEDS: WARFARIN SOD 2.5 MG TAB PO SCH (15:43)
[2017-04-15 16:00] VITALS: BP 151/52; PULSE 56; TEMP 36.7; O2SAT 95; O2SAT 97
[2017-04-15 20:09] VITALS: BP 143/47; PULSE 60; TEMP 36.5; O2SAT 97
--- NOTE | 2017-04-15 20:18 | Progress Note ---
Medicine Progress Note Date & Time of Visit: Apr 15, 2017 at 16:40 . Subjective CC: Follow-up visit for multiple problems. HPI: No fever. Occasional cough. No chest pain. No nausea or vomiting. No diarrhea. Lower extremity edema improved. Voiding without difficulty. ROS: General- as noted above in HPI Resp- as noted above in HPI Cardiac- as noted above in HPI GI- as noted above in HPI - as noted above in HPI . Objective Last 8 Hrs Date Time Temp Pulse Resp B/P (MAP) Pulse Ox O2 Delivery O2 Flow Rate FiO2 04/15/17 20:09 36.5 60 16 143/47 (79) 97 Room Air 04/15/17 19:54 Room Air 04/15/17 16:00 36.7 56 18 151/52 (85) 95 Room Air 04/15/17 16:00 97 Room Air Physical Exam: General- sitting in chair; no distress Lungs- few bibasilar rales; decreased breath sounds right base; mi;d wheezing; no respiratory distress Cardiovascular- RRR; I/ systolic murmur at base; no gallop appreciated; 1+ pretibial edema Abdomen- + bowel sounds, soft, nontender Extremities- no cyanosis; no calf tenderness; wearing TEDS Neuro- alert, oriented Skin- warm & dry . Laboratory Results: Last 24 Hours Test 04/15/17 09:53 Sodium Level 135 mmol/L Potassium Level 4.4 mmol/L Chloride Level 99 mmol/L Carbon Dioxide Level 30 mmol/L Anion Gap 6.0 mmol/L Blood Urea Nitrogen 29 mg/dl Creatinine 1.10 mg/dl Est Creatinine Clear Calc Drug Dose 60.9 ml/min Estimated GFR () 75.2 Estimated GFR (Non- 64.9 BUN/Creatinine Ratio 26.2 Random Glucose 93 mg/dl Calcium Level 8.2 mg/dl Assessment & Plan CHF Exam, chest x-ray, and elevated BNP consistent with CHF. Echo demonstrates normal LVEF, no significant valvular pathology. 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 Received IV furosemide with improvement of exam. Chest x-ray 04/12 showed improved pulmonary vascular congestion. Transitioned to oral furosemide. Chest x-ray today showed improvement. POSSIBLE LOWER RESPIRATORY TRACT INFECTION Productive cough at time of admission. Afebrile. No definite infiltrates on chest x-ray (films show pulmonary edema +/- atelectasis vs infiltrate) TELEVISION PROGRAM DIRECTOR swab for influenza A/B Ag negative. Cough may be secondary to CHF or bronchitis. Stopped IV antibiotics. Treated for possible bronchitis with doxycycline. No apparent aspiration per bedside SENIOR MATERIALS ANALYST eval or barium swallow. Sinus films showed minimal mucosal thickening. Changed antibiotic therapy to amoxicillin / clavulanic acid. Cough improved. POSSIBLE ASPIRATION Seen SENIOR MATERIALS ANALYST for bedside swallowing eval. No overt aspiration appreciated. Barium esophagram - small hiatal hernia, no aspiration. CORONARY ARTERY DISEASE History ischemic heart disease, s/p CABG. No anginal symptoms. Slightly elevated troponins (0.063, 0.059, 0.036) probably due to CHF or infection, not acute coronary syndrome. Metoprolol held due to bradycardia, restarted at reduced dose. Continue aspirin and statin. PAROXYSMAL ATRIAL FIBRILLATION Continue amiodarone. Metoprolol held due to bradycardia, restarted at reduced dose. Continue warfarin. HYPERTENSION Metoprolol held due to bradycardia, restarted at reduced dose. BP ran high after reducing dose of metoprolol. Added amlodipine. Continue lisinopril. BP's improved. Follow and titrate Rx. COPD Bronchospasm could be secondary to bronchitis or CHF. Oxygenating well. Stopped prednisone. Incentive spirometry. Continue bronchodilators. GERD Continue famotidine. BPH Byrd catheter inserted at time of admission. Voiding well since removal. Continue tamsulosin. HEMATURIA Probably secondary to Byrd insertion. Resolved. S/P RIGHT TKA 02/06/[address] De Jesus. Continue PT. POOR SHORT TERM MEMORY Sister concerned about problems with short-term memory. Patient acknowledges some difficulties. Neuro consult requested. MRI did not show any significant abnormalities. Consider outpatient neuropsych testing. VTE PROPHYLAXIS Continue warfarin. Ambulate. DISPOSITION Expected return to [facility] with PT / OT. Family Medicine follow-up with Dr. Roldan. . Current Inpatient Medications: Current Inpatient Medications Medications (Trade) Dose Ordered Sig/Martine Route Start Time Stop Time Status Last Admin Dose Admin Acetaminophen (Tylenol Tab) 650 mg Q4H PRN PO 04/05/17 17:30 05/05/17 17:29 Nitroglycerin (Nitrostat Tab) 0.4 mg UD PRN SL 04/05/17 17:30 05/05/17 17:29 Polyethylene (Miralax Powder Packet) 17 gm DAILY PRN PO 04/05/17 17:30 05/05/17 17:29 04/06/17 20:37 17 GM Nystatin (Mycostatin Powder) 1 appln TID EXT 04/05/17 21:00 05/05/17 20:59 04/15/17 09:47 1 APPLN Ipratropium [place] (Atrovent 0.02% 0.5MG/2.5ML Neb) 0.5 mg Q4H PRN INH 04/05/17 18:00 05/05/17 17:59 04/14/17 04:08 0.5 MG Levalbuterol (Xopenex 0.63 Mg/ 3 Ml Neb) 0.63 mg Q4H PRN INH 04/05/17 18:00 05/05/17 17:59 04/14/17 04:08 0.63 MG Amiodarone HCl (Cordarone Tab) 200 mg QAM PO 04/06/17 09:00 05/06/17 08:59 04/15/17 09:42 200 MG Aspirin (Ecotrin Tab) 81 mg QAM PO 04/06/17 09:00 05/06/17 08:59 04/15/17 09:42 81 MG Atorvastatin Calcium (Lipitor Tab) 20 mg HS PO 04/05/17 21:00 05/05/17 20:59 04/14/17 19:12 20 MG Docusate Sodium (coLACE CAP) 100 mg BID PO 04/05/17 21:00 05/05/17 20:59 04/15/17 09:45 100 MG Fluticasone Propionate (Flonase Nasal [place]) 2 sprays DAILY PRN PILI 04/05/17 18:30 05/05/17 18:29 Lorazepam (Ativan Tab) 0.5 mg BID PRN PO 04/05/17 18:30 05/05/17 18:29 04/15/17 09:41 0.5 MG Magnesium Oxide (Mag-Ox Tab) 400 mg BID PO 04/05/17 21:00 05/05/17 20:59 04/15/17 09:44 400 MG Potassium Chloride (Klor-Con M10) 10 meq QAM PO 04/06/17 09:00 05/06/17 08:59 04/15/17 09:41 10 MEQ Salmeterol Xinafoate (Serevent Diskus Inh) 1 puffs BID INH 04/05/17 21:00 05/05/17 20:59 04/15/17 09:43 1 PUFFS Tamsulosin HCl (Flomax Cap) 0.4 mg DAILY PO 04/06/17 09:00 05/06/17 08:59 04/15/17 09:45 0.4 MG Trazodone HCl (Desyrel Tab) 50 mg HS PRN PO 04/05/17 18:30 05/05/17 18:29 04/13/17 22:36 50 MG Benzonatate (Tessalon Perles Cap) 100 mg Q8H PRN PO 04/06/17 01:45 05/06/17 01:44 04/10/17 02:33 100 MG Lisinopril (Zestril Tab) 40 mg DAILY PO 04/09/17 09:00 05/06/17 08:59 04/15/17 09:42 40 MG Famotidine (Pepcid Tab) 20 mg PC PO 04/09/17 09:00 05/05/17 20:59 04/15/17 17:21 20 MG Metoprolol Succinate (Toprol Xl Tab) 50 mg QAM PO 04/09/17 09:00 05/09/17 08:59 04/15/17 09:45 50 MG Amlodipine Besylate (Norvasc Tab) 5 mg QAM PO 04/09/17 09:00 05/09/17 08:59 04/15/17 09:42 5 MG Warfarin Sodium (Coumadin Tab) 2.5 mg DAILY@16 PO 04/10/17 16:00 05/10/17 15:59 04/15/17 15:43 2.5 MG Guaifenesin (Robitussin Sugar Free Syrup) 100 mg QID PO 04/12/17 21:00 05/12/17 20:59 04/15/17 15:42 100 MG Amoxicillin/ Clavulanate Potassium (Augmentin Tab) 875 mg BIDM PO 04/13/17 08:00 04/20/17 07:59 04/15/17 15:43 875 MG Furosemide (Lasix Tab) 40 mg QAM PO 04/14/17 09:00 05/14/17 08:59 04/15/17 09:41 40 MG Senna/Docusate Sodium (Senokot S Tab) 1 tab BID PO 04/14/17 21:00 05/14/17 20:59 04/15/17 09:44 1 TAB
[2017-04-15] MEDS: ATORVASTATIN 20 MG TAB PO SCH (20:46)
[2017-04-16] VITALS (7 sets, daily range): BP systolic 111–166; BP diastolic 49–62; PULSE 51–58; TEMP 36.3–36.8; O2SAT 94–98
[2017-04-16 06:31] LABS: HEMATOCRIT 38.5 % (42-52); HEMOGLOBIN 12.6 g/dL (14.0-18.0); MEAN CELL VOLUME 87.5 fL (80-100); MEAN CORPUSCULAR HEMOGLOBIN 28.6 pg (25-34); MEAN CORPUSCULAR HGB CONC 32.7 g/dl (32-36); MEAN PLATELET VOLUME 9.9 fL (7.4-10.4); PLATELET COUNT 156 K/uL (130-400); RED CELL DISTRIBUTION WIDTH CV 14.4 % (11.5-14.5); RED CELL DISTRIBUTION WIDTH SD 46.3 fL (36.4-46.3); WHITE BLOOD COUNT 5.92 K/uL (4.8-10.8)
[2017-04-16 07:01] LABS: CALCIUM 8.1 mg/dl (8.5-10.1); CREATININE 1.1 mg/dl (0.60-1.40)
[2017-04-16 07:30] LABS: INR 1.9 (0.9-1.1)
[2017-04-16] MEDS: NYSTATIN POWDER 15GM BTL EXT SCH ×3 (08:15→21:17)
[2017-04-16] MEDS: AMOXICILLIN/CLAVULANATE TAB 875 MG TAB PO SCH ×2 (08:15→17:16)
[2017-04-16] MEDS: MAGNESIUM OXIDE 400 MG TAB PO SCH ×2 (08:16→21:22)
[2017-04-16] MEDS: SALMETEROL XINAFOATE 50MCG 28 BLISTER INH INH SCH ×2 (08:16→21:17)
[2017-04-16] MEDS: AMIODARONE 200 MG TAB PO SCH (08:17)
[2017-04-16] MEDS: FUROSEMIDE 40 MG TAB PO SCH (08:17)
[2017-04-16] MEDS: BENZONATATE 100MG CAP PO PRN (08:17)
[2017-04-16] MEDS: POTASSIUM CHLORIDE 10 MEQ TABCR PO SCH (08:17)
[2017-04-16] MEDS: FAMOTIDINE 20 MG TAB PO SCH ×3 (08:18→17:16)
[2017-04-16] MEDS: LISINOPRIL 40 MG TAB PO SCH (08:18)
[2017-04-16] MEDS: DOCUSATE SODIUM 100 MG CAP PO SCH ×2 (08:18→21:22)
[2017-04-16] MEDS: TAMSULOSIN HCL 0.4 MG CAP PO SCH (08:18)
[2017-04-16] MEDS: AMLODIPINE BESYLATE 5 MG TAB PO SCH (08:18)
[2017-04-16] MEDS: ASPIRIN 81 MG ECTAB PO SCH (08:18)
[2017-04-16] MEDS: DOCUSATE SODIUM/SENNA 50/8.6MG TAB PO SCH ×2 (08:19→21:00)
[2017-04-16] MEDS: METOPROLOL SUCC 50MG EXT REL TAB PO SCH (08:20)
[2017-04-16] MEDS: GUAIFENESIN SUGAR FREE 100 MG/5 ML UDC PO SCH ×4 (08:20→21:20)
[2017-04-16] MEDS ORDERED: WARFARIN SOD 5 MG TAB PO SCH (11:00)
--- NOTE | 2017-04-16 19:32 | Progress Note ---
Medicine Progress Note Date & Time of Visit: Apr 16, 2017 at 11:30 . Subjective CC: Follow-up visit for multiple problems. HPI: No fever. Coughing spells this morning. No shortness of breath. No chest pain. Edema improved. No nausea or vomiting. No diarrhea. Voiding without difficulty. No hematuria. Doesn't feel that he is ready for discharge yet. ROS: General- as noted above in HPI Resp- as noted above in HPI Cardiac- as noted above in HPI GI- as noted above in HPI - as noted above in HPI . Objective Last 8 Hrs Date Time Temp Pulse Resp B/P (MAP) Pulse Ox O2 Delivery O2 Flow Rate FiO2 04/16/17 15:43 36.8 54 18 144/55 (84) 97 Room Air Physical Exam: General- sitting in chair; no distress Lungs- essentially clear; no respiratory distress Cardiovascular- RRR; I/ systolic murmur at base; no gallop appreciated; trace- 1+ pretibial edema Abdomen- + bowel sounds, soft, nontender Extremities- no cyanosis; no calf tenderness; wearing knee-high TEDS Neuro- alert, oriented Skin- warm & dry . Laboratory Results: Last 24 Hours Test 04/16/17 05:52 04/16/17 06:51 White Blood Count 5.92 K/uL Red Blood Count 4.40 M/uL Hemoglobin 12.6 g/dL Hematocrit 38.5 % Mean Corpuscular Volume 87.5 fL Mean Corpuscular Hemoglobin 28.6 pg Mean Corpuscular Hemoglobin Concent 32.7 g/dl RDW Standard Deviation 46.3 fL RDW Coefficient of Variation 14.4 % Platelet Count 156 K/uL Mean Platelet Volume 9.9 fL Sodium Level 131 mmol/L Potassium Level mmol/L 4.1 mmol/L Chloride Level 100 mmol/L Carbon Dioxide Level 25 mmol/L Anion Gap 6.0 mmol/L Blood Urea Nitrogen 28 mg/dl Creatinine 1.10 mg/dl Est Creatinine Clear Calc Drug Dose 60.9 ml/min Estimated GFR () 75.2 Estimated GFR (Non- 64.9 BUN/Creatinine Ratio 25.2 Random Glucose 81 mg/dl Calcium Level 8.1 mg/dl Prothrombin Time 20.1 SECONDS Prothromb Time International Ratio 1.9 Assessment & Plan CHF Exam, chest x-ray, and elevated BNP consistent with CHF. Echo demonstrated normal LVEF, no significant valvular pathology. 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 Received IV furosemide with improvement of exam. Chest x-ray 04/12 showed improved pulmonary vascular congestion. Transitioned to oral furosemide. Chest x-ray 04/15 showed improvement. POSSIBLE LOWER RESPIRATORY TRACT INFECTION Productive cough at time of admission. Afebrile. No definite infiltrates on chest x-ray (films show pulmonary edema +/- atelectasis vs infiltrate) MAILING MACHINE HELPER swab for influenza A/B Ag negative. Cough may be secondary to CHF or bronchitis. Stopped IV antibiotics. Treated for possible bronchitis with doxycycline. No apparent aspiration per bedside CHECKER PRODUCT DESIGN eval or barium swallow. Sinus films showed minimal mucosal thickening. Changed antibiotic therapy to amoxicillin / clavulanic acid. Cough improved. POSSIBLE ASPIRATION Seen by CHECKER PRODUCT DESIGN for bedside swallowing eval. No overt aspiration appreciated. Barium esophagram - small hiatal hernia, no aspiration. CORONARY ARTERY DISEASE History ischemic heart disease, s/p CABG. No anginal symptoms. Slightly elevated troponins (0.063, 0.059, 0.036) probably due to CHF or infection, not acute coronary syndrome. Metoprolol held due to bradycardia, restarted at reduced dose. Continue aspirin and statin. PAROXYSMAL ATRIAL FIBRILLATION Continue amiodarone. Metoprolol held due to bradycardia, restarted at reduced dose. Continue warfarin. HYPERTENSION Metoprolol held due to bradycardia, restarted at reduced dose. BP ran high after reducing dose of metoprolol. Added amlodipine. Continue lisinopril. BP's improved. Follow and titrate Rx. COPD Bronchospasm could be secondary to bronchitis or CHF. Oxygenating well. Stopped prednisone. Incentive spirometry. Continue bronchodilators. GERD Continue famotidine. BPH Byrd catheter inserted at time of admission. Voiding well since removal. Continue tamsulosin. HEMATURIA Probably secondary to Byrd insertion. Resolved. S/P RIGHT TKA 02/06/[address] De Jesus. Continue PT. POOR SHORT TERM MEMORY Sister concerned about problems with short-term memory. Patient acknowledges some difficulties. Neuro consult requested. MRI did not show any significant abnormalities. Consider outpatient neuropsych testing. VTE PROPHYLAXIS Continue warfarin. Ambulate. DISPOSITION Expected return to [facility] with PT / OT. Family Medicine follow-up with Dr. Roldan. . Current Inpatient Medications: Current Inpatient Medications Medications (Trade) Dose Ordered Sig/Martine Route Start Time Stop Time Status Last Admin Dose Admin Acetaminophen (Tylenol Tab) 650 mg Q4H PRN PO 04/05/17 17:30 05/05/17 17:29 Nitroglycerin (Nitrostat Tab) 0.4 mg UD PRN SL 04/05/17 17:30 05/05/17 17:29 Polyethylene (Miralax Powder Packet) 17 gm DAILY PRN PO 04/05/17 17:30 05/05/17 17:29 04/06/17 20:37 17 GM Nystatin (Mycostatin Powder) 1 appln TID EXT 04/05/17 21:00 05/05/17 20:59 04/16/17 08:15 1 APPLN Ipratropium [place] (Atrovent 0.02% 0.5MG/2.5ML Neb) 0.5 mg Q4H PRN INH 04/05/17 18:00 05/05/17 17:59 04/14/17 04:08 0.5 MG Levalbuterol (Xopenex 0.63 Mg/ 3 Ml Neb) 0.63 mg Q4H PRN INH 04/05/17 18:00 05/05/17 17:59 04/14/17 04:08 0.63 MG Amiodarone HCl (Cordarone Tab) 200 mg QAM PO 04/06/17 09:00 05/06/17 08:59 04/16/17 08:17 200 MG Aspirin (Ecotrin Tab) 81 mg QAM PO 04/06/17 09:00 05/06/17 08:59 04/16/17 08:18 81 MG Atorvastatin Calcium (Lipitor Tab) 20 mg HS PO 04/05/17 21:00 05/05/17 20:59 04/15/17 20:46 20 MG Docusate Sodium (coLACE CAP) 100 mg BID PO 04/05/17 21:00 05/05/17 20:59 04/16/17 08:18 100 MG Fluticasone Propionate (Flonase Nasal [place]) 2 sprays DAILY PRN PILI 04/05/17 18:30 05/05/17 18:29 Lorazepam (Ativan Tab) 0.5 mg BID PRN PO 04/05/17 18:30 05/05/17 18:29 04/15/17 09:41 0.5 MG Magnesium Oxide (Mag-Ox Tab) 400 mg BID PO 04/05/17 21:00 05/05/17 20:59 04/16/17 08:16 400 MG Potassium Chloride (Klor-Con M10) 10 meq QAM PO 04/06/17 09:00 05/06/17 08:59 04/16/17 08:17 10 MEQ Salmeterol Xinafoate (Serevent Diskus Inh) 1 puffs BID INH 04/05/17 21:00 05/05/17 20:59 04/16/17 08:16 1 PUFFS Tamsulosin HCl (Flomax Cap) 0.4 mg DAILY PO 04/06/17 09:00 05/06/17 08:59 04/16/17 08:18 0.4 MG Trazodone HCl (Desyrel Tab) 50 mg HS PRN PO 04/05/17 18:30 05/05/17 18:29 04/13/17 22:36 50 MG Benzonatate (Tessalon Perles Cap) 100 mg Q8H PRN PO 04/06/17 01:45 05/06/17 01:44 04/16/17 08:17 100 MG Lisinopril (Zestril Tab) 40 mg DAILY PO 04/09/17 09:00 05/06/17 08:59 04/16/17 08:18 40 MG Famotidine (Pepcid Tab) 20 mg PC PO 04/09/17 09:00 05/05/17 20:59 04/16/17 17:16 20 MG Metoprolol Succinate (Toprol Xl Tab) 50 mg QAM PO 04/09/17 09:00 05/09/17 08:59 04/16/17 08:20 50 MG Amlodipine Besylate (Norvasc Tab) 5 mg QAM PO 04/09/17 09:00 05/09/17 08:59 04/16/17 08:18 5 MG Guaifenesin (Robitussin Sugar Free Syrup) 100 mg QID PO 04/12/17 21:00 05/12/17 20:59 04/16/17 17:16 100 MG Amoxicillin/ Clavulanate Potassium (Augmentin Tab) 875 mg BIDM PO 04/13/17 08:00 04/20/17 07:59 04/16/17 17:16 875 MG Furosemide (Lasix Tab) 40 mg QAM PO 04/14/17 09:00 05/14/17 08:59 04/16/17 08:17 40 MG Senna/Docusate Sodium (Senokot S Tab) 1 tab BID PO 04/14/17 21:00 05/14/17 20:59 04/16/17 08:19 1 TAB Warfarin Sodium (Coumadin Tab) 5 mg TODAY@1100 PO 04/16/17 11:00 04/16/17 23:59 04/16/17 11:00 5 MG
[2017-04-16] MEDS: ATORVASTATIN 20 MG TAB PO SCH (21:22)
[2017-04-16] MEDS: LORAZEPAM 0.5 MG TAB PO PRN (21:26)
[2017-04-17 03:53] VITALS: BP 164/60; PULSE 56; TEMP 36.5; O2SAT 92
[2017-04-17 06:23] LABS: INR 1.9 (0.9-1.1)
[2017-04-17 06:54] LABS: CALCIUM 8.3 mg/dl (8.5-10.1); CREATININE 1.04 mg/dl (0.60-1.40); POTASSIUM 3.8 mmol/L (3.5-5.1)
[2017-04-17] MEDS: POTASSIUM CHLORIDE 10 MEQ TABCR PO SCH (07:53)
[2017-04-17] MEDS: AMOXICILLIN/CLAVULANATE TAB 875 MG TAB PO SCH (07:53)
[2017-04-17] MEDS: MAGNESIUM OXIDE 400 MG TAB PO SCH (07:53)
[2017-04-17] MEDS: DOCUSATE SODIUM 100 MG CAP PO SCH (07:54)
[2017-04-17] MEDS: DOCUSATE SODIUM/SENNA 50/8.6MG TAB PO SCH (07:54)
[2017-04-17] MEDS: AMLODIPINE BESYLATE 5 MG TAB PO SCH (07:55)
[2017-04-17] MEDS: ASPIRIN 81 MG ECTAB PO SCH (07:57)
[2017-04-17] MEDS: FAMOTIDINE 20 MG TAB PO SCH ×2 (07:57→13:00)
[2017-04-17] MEDS: SALMETEROL XINAFOATE 50MCG 28 BLISTER INH INH SCH (07:58)
[2017-04-17] MEDS: NYSTATIN POWDER 15GM BTL EXT SCH ×2 (07:58→14:00)
[2017-04-17] MEDS: TAMSULOSIN HCL 0.4 MG CAP PO SCH (07:58)
[2017-04-17] MEDS: FUROSEMIDE 40 MG TAB PO SCH (07:59)
[2017-04-17 08:00] VITALS: O2SAT 97
[2017-04-17] MEDS: LISINOPRIL 40 MG TAB PO SCH (08:00)
[2017-04-17] MEDS: GUAIFENESIN SUGAR FREE 100 MG/5 ML UDC PO SCH ×2 (08:01→13:00)
[2017-04-17] MEDS: AMIODARONE 200 MG TAB PO SCH (08:01)
[2017-04-17] MEDS: METOPROLOL SUCC 50MG EXT REL TAB PO SCH (08:07)
[2017-04-17] MEDS: LORAZEPAM 0.5 MG TAB PO PRN (08:14)
[2017-04-17 08:15] VITALS: BP 163/63; PULSE 53; TEMP 36.6; O2SAT 96
[2017-04-17] MEDS ORDERED: WARFARIN SOD 7.5 MG TAB PO ONE (11:00)
[2017-04-17 11:32] VITALS: BP 152/53; PULSE 53; TEMP 36.6; O2SAT 97
--- NOTE | 2017-04-17 11:35 | Progress Note ---
Medicine Progress Note Date & Time of Visit: Apr 17, 2017 at 11:34 . Subjective Doing well. Occasional cough. No fever. No CP or SOB. No nausea, vomiting, diarrhea. . Objective Last 8 Hrs Date Time Temp Pulse Resp B/P (MAP) Pulse Ox O2 Delivery O2 Flow Rate FiO2 04/17/17 11:32 36.6 53 16 152/53 (86) 97 Room Air 04/17/17 08:42 36.6 53 16 97 Room Air 04/17/17 08:15 36.6 53 18 163/63 (96) 96 Room Air 04/17/17 04:00 Room Air 04/17/17 03:53 36.5 56 18 164/60 (94) 92 Room Air Physical Exam: General- sitting in chair; no distress Lungs- clear; no respiratory distress Cardiovascular- RRR; I/ systolic murmur at base; no gallop appreciated; trace- 1+ pretibial edema Abdomen- + bowel sounds, soft, nontender Extremities- no cyanosis; no calf tenderness; wearing knee-high TEDS Neuro- alert, oriented Skin- warm & dry . Laboratory Results: Last 24 Hours Test 04/17/17 05:46 04/17/17 05:47 Prothrombin Time 19.4 SECONDS Prothromb Time International Ratio 1.9 Sodium Level 134 mmol/L Potassium Level 3.8 mmol/L Chloride Level 100 mmol/L Carbon Dioxide Level 27 mmol/L Anion Gap 7.0 mmol/L Blood Urea Nitrogen 23 mg/dl Creatinine 1.04 mg/dl Est Creatinine Clear Calc Drug Dose 63.3 ml/min Estimated GFR () 80.5 Estimated GFR (Non- 69.4 BUN/Creatinine Ratio 22.4 Random Glucose 88 mg/dl Calcium Level 8.3 mg/dl Assessment & Plan CHF Exam, chest x-ray, and elevated BNP consistent with CHF. Echo demonstrated normal LVEF, no significant valvular pathology. 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 Received IV furosemide with improvement of exam. Chest x-ray 04/12 showed improved pulmonary vascular congestion. Transitioned to oral furosemide. Chest x-ray 04/15 showed improvement. Discharge on furosemide 40 mg PO daily. CHF instructions given. POSSIBLE LOWER RESPIRATORY TRACT INFECTION Productive cough at time of admission. Afebrile. No definite infiltrates on chest x-ray (films show pulmonary edema +/- atelectasis vs infiltrate) ASSESSMENT COUNSELOR swab for influenza A/B Ag negative. Cough may be secondary to CHF or bronchitis. Stopped IV antibiotics. Treated for possible bronchitis with doxycycline. No apparent aspiration per bedside NUT PACKER eval or barium swallow. Sinus films showed minimal mucosal thickening. Changed antibiotic therapy to amoxicillin / clavulanic acid. Cough improved. POSSIBLE ASPIRATION Seen by NUT PACKER for bedside swallowing eval. No overt aspiration appreciated. Barium esophagram - small hiatal hernia, no aspiration. May have intermittent aspiration. Given instructions regarding aspiration precautions. CORONARY ARTERY DISEASE History ischemic heart disease, s/p CABG. No anginal symptoms. Slightly elevated troponins (0.063, 0.059, 0.036) probably due to CHF or infection, not acute coronary syndrome. Metoprolol succinate held due to bradycardia, restarted at reduced dose of 50 mg daily. Continue aspirin and statin. PAROXYSMAL ATRIAL FIBRILLATION Continue amiodarone. Metoprolol held due to bradycardia, restarted at reduced dose. Continue warfarin. HYPERTENSION Metoprolol held due to bradycardia, restarted at reduced dose. BP ran high after reducing dose of metoprolol. Added amlodipine. Increased lisinopril to 40 mg daily. BP's improved. Follow and titrate Rx. COPD Bronchospasm could be secondary to bronchitis or CHF. Oxygenating well. Received prednisone with improvement. Incentive spirometry. Continue bronchodilators. GERD Continue famotidine. BPH Byrd catheter inserted at time of admission. Voiding well since removal. Continue tamsulosin. HEMATURIA Probably secondary to Byrd insertion. Resolved. S/P RIGHT TKA 02/06/[address] De Jesus. Continue PT. POOR SHORT TERM MEMORY Sister concerned about problems with short-term memory. Patient acknowledges some difficulties. Neuro consult requested. MRI did not show any significant abnormalities. Consider outpatient neuropsych testing. VTE PROPHYLAXIS Continue warfarin. Ambulate. DISPOSITION Returning to [facility] with PT / OT. Family Medicine follow-up with Dr. Roldan. . Current Inpatient Medications: Current Inpatient Medications Medications (Trade) Dose Ordered Sig/Martine Route Start Time Stop Time Status Last Admin Dose Admin Acetaminophen (Tylenol Tab) 650 mg Q4H PRN PO 04/05/17 17:30 05/05/17 17:29 Nitroglycerin (Nitrostat Tab) 0.4 mg UD PRN SL 04/05/17 17:30 05/05/17 17:29 Polyethylene (Miralax Powder Packet) 17 gm DAILY PRN PO 04/05/17 17:30 05/05/17 17:29 04/06/17 20:37 17 GM Nystatin (Mycostatin Powder) 1 appln TID EXT 04/05/17 21:00 05/05/17 20:59 04/17/17 07:58 1 APPLN Ipratropium [place] (Atrovent 0.02% 0.5MG/2.5ML Neb) 0.5 mg Q4H PRN INH 04/05/17 18:00 05/05/17 17:59 04/14/17 04:08 0.5 MG Levalbuterol (Xopenex 0.63 Mg/ 3 Ml Neb) 0.63 mg Q4H PRN INH 04/05/17 18:00 05/05/17 17:59 04/14/17 04:08 0.63 MG Amiodarone HCl (Cordarone Tab) 200 mg QAM PO 04/06/17 09:00 05/06/17 08:59 04/17/17 08:01 200 MG Aspirin (Ecotrin Tab) 81 mg QAM PO 04/06/17 09:00 05/06/17 08:59 04/17/17 07:57 81 MG Atorvastatin Calcium (Lipitor Tab) 20 mg HS PO 04/05/17 21:00 05/05/17 20:59 04/16/17 21:22 20 MG Docusate Sodium (coLACE CAP) 100 mg BID PO 04/05/17 21:00 05/05/17 20:59 04/17/17 07:54 100 MG Fluticasone Propionate (Flonase Nasal [place]) 2 sprays DAILY PRN PILI 04/05/17 18:30 05/05/17 18:29 Lorazepam (Ativan Tab) 0.5 mg BID PRN PO 04/05/17 18:30 05/05/17 18:29 04/17/17 08:14 0.5 MG Magnesium Oxide (Mag-Ox Tab) 400 mg BID PO 04/05/17 21:00 05/05/17 20:59 04/17/17 07:53 400 MG Potassium Chloride (Klor-Con M10) 10 meq QAM PO 04/06/17 09:00 05/06/17 08:59 04/17/17 07:53 10 MEQ Salmeterol Xinafoate (Serevent Diskus Inh) 1 puffs BID INH 04/05/17 21:00 05/05/17 20:59 04/17/17 07:58 1 PUFFS Tamsulosin HCl (Flomax Cap) 0.4 mg DAILY PO 04/06/17 09:00 05/06/17 08:59 04/17/17 07:58 0.4 MG Trazodone HCl (Desyrel Tab) 50 mg HS PRN PO 04/05/17 18:30 05/05/17 18:29 04/13/17 22:36 50 MG Benzonatate (Tessalon Perles Cap) 100 mg Q8H PRN PO 04/06/17 01:45 05/06/17 01:44 04/16/17 08:17 100 MG Lisinopril (Zestril Tab) 40 mg DAILY PO 04/09/17 09:00 05/06/17 08:59 04/17/17 08:00 40 MG Famotidine (Pepcid Tab) 20 mg PC PO 04/09/17 09:00 05/05/17 20:59 04/17/17 07:57 20 MG Metoprolol Succinate (Toprol Xl Tab) 50 mg QAM PO 04/09/17 09:00 05/09/17 08:59 04/17/17 08:07 50 MG Amlodipine Besylate (Norvasc Tab) 5 mg QAM PO 04/09/17 09:00 05/09/17 08:59 04/17/17 07:55 5 MG Guaifenesin (Robitussin Sugar Free Syrup) 100 mg QID PO 04/12/17 21:00 05/12/17 20:59 04/17/17 08:01 100 MG Amoxicillin/ Clavulanate Potassium (Augmentin Tab) 875 mg BIDM PO 04/13/17 08:00 04/20/17 07:59 04/17/17 07:53 875 MG Furosemide (Lasix Tab) 40 mg QAM PO 04/14/17 09:00 05/14/17 08:59 04/17/17 07:59 40 MG Senna/Docusate Sodium (Senokot S Tab) 1 tab BID PO 04/14/17 21:00 05/14/17 20:59 04/17/17 07:54 1 TAB
[2017-04-17 12:00] VITALS: O2SAT 97
[2017-04-17] MEDS ORDERED: LISI-461 PO (12:08)
[2017-04-17] MEDS ORDERED: LEVA45AE INH (12:08)
[2017-04-17] MEDS ORDERED: LSN40 PO (13:22)
[2017-04-17] MEDS ORDERED: BENZ100C7 PO (13:22)
[2017-04-17] MEDS ORDERED: AMOX1TAB43 PO (13:22)
[2017-04-17] MEDS ORDERED: LSX40 PO (13:22)
[2017-04-17] MEDS ORDERED: NRV5 PO (13:22)
[2017-04-17] MEDS ORDERED: TPRSR50 PO ×2 (13:22→13:23)
[2017-04-17] MEDS ORDERED: MCRK20 PO (13:22)
--- NOTE | 2017-04-17 13:33 | Discharge Instructions ---
Discharge Instructions Date of Service Apr 17, 2017. Admission Reason for Admission: cough and shortness of breath . Discharge Discharge Diagnosis / Problem: congestive heart failure, suspected bronchitis Discharge Goals Goal(s): Decrease discomfort, Improve disease control Activity Recommendations Activity Limitations: resume your previous activity . Instructions / Follow-Up Instructions / Follow-Up APPOINTMENTS: FAMILY MEDICINE 04/23/2017 11:00 AM Olaf Roldan III, MD CARDIOLOGY 08/02/2017 9:25 AM Earle Soria Jr., DO NEUROLOGY Dr. Larkin. Please ask Dr. Roldan to make referral for you. OTHER INSTRUCTIONS: Speech Therapy Discharge Instructions * It is recommended that the patient continue a regular "slippery" diet upon discharge. With this diet, the patient should try to avoid foods that are dry, thick, pasty, or doughy. Adding sauce/condiments to foods (such as butter, gravy, etc) to assist in keeping foods moist is encouraged. The patient should sit fully upright for meals and for 30 minutes after meals. When eating, the patient should keep chin neutral at all times or down for all intake. Medications should be crushed and placed in a carrier such as applesauce or pudding. The use of straws is not recommended. The patient should NOT lay flat, and the head of bed should be upright to at least 30 degrees at all times -including while sleeping. Your INR was 1.9 on 04/17/17. You were given 7.5 mg of warfarin (Coumadin) at [facility] before you were discharged. Resume warfarin (Coumadin) 04/18/17 in the evening with your usual dose of 5 mg each night. Priti will contact you with further instructions. Seek medical attention if you have: * temperature above 101 * chest pain or trouble breathing * abdominal pain, nausea, vomiting * diarrhea, dark stools or bloody stools * any unanswered questions or concerns Call 911 if symptoms are severe. Call if you have any questions or problems. My cell # is [phone]. You can also reach a [facility] hospitalist on duty at [facility] 24 hours a day by calling [phone]. Please take good care of yourself. Olaf Gabriel . Call your Primary Care doctor if any of the following symptoms or problems start or get worse: * Shortness of breath or difficulty breathing * Wake up at night short of breath * Chest pain * Cough * Swelling of your hands, feet, or legs * More fatigued or tired with your normal activity * Palpitations - sudden fast heart beats WEIGHT * Weigh yourself every morning after using the bathroom. * Use the same scale. * Wear the same amount of clothing. * Write your weight down on a chart. * Call your Primary Care doctor if you gain more than 2-3 pounds in 1-2 days. MEDICATIONS * Use this discharge instruction sheet for medication instructions. * Take your medications at the time your doctor ordered. * Do not skip a dose of your medicines. * If you miss a dose of medicine, take it as soon as possible, but DO NOT DOUBLE A DOSE. * Read your medicine information when you get home. * Know all of the side effects of your medicine. If in doubt, ask your pharmacist * Call your Primary Care doctor's office if you have any side effects. * Be sure all of your doctors know what medicine and herbs you take (including cold, flu, and herbal medicine). Take the following with you to your follow-up doctor appointments: * Weight Chart * Medication List * List of questions Do not drink excessive alcohol, beer or wine. Current Hospital Diet Patient's current hospital diet: AHA Diet (Heart Healthy), Low Sodium Diet (2gm Na) Discharge Diet Recommended Diet: AHA Diet (Heart Healthy) Fluid Restriction: 2000 ml (8 cups) Procedures Procedures Performed: barium swallow - small hiatal hernia, no sign of aspiration MRI brain- no sign of stroke or tumor Pending Studies Studies pending at discharge: no Medical Emergencies . Who to Call and When: Call 911 or go to the Emergency Room if: * If at any time you feel your situation is an emergency * You have tightness or pain in your chest that does not go away with rest or Nitroglycerin * You are very short of breath even with rest . Non-Emergent Contact Non-Emergency issues call your: Primary Care Provider, Local Driver, Hospital Doctor . . "Provider Documentation" section prepared by Olaf Gabriel. . VTE Core Measure Inpt VTE Proph given/why not?: Warfarin (Coumadin)
--- NOTE | 2017-04-18 15:01 | Discharge Summary ---
Discharge Summary Date of Service Apr 18, 2017. 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 Secondary Diagnoses/Problems: Chronic and Resolved Medical Problems: (1) Anticoagulated on warfarin Status: Chronic (2) Anxiety Status: Chronic (3) BPH (benign prostatic hyperplasia) Status: Chronic (4) BPH (benign prostatic hypertrophy) Status: Chronic (5) CAD (coronary artery disease) Status: Chronic (6) Cerebrovascular disease Permanent Comment: history of TIA Status: Chronic (7) Chronic sinusitis Status: Chronic (8) COPD (chronic obstructive pulmonary disease) Status: Chronic (9) Diverticulosis Status: Chronic (10) Diverticulosis of colon Status: Chronic (11) Dyslipidemia Status: Chronic (12) GERD (gastroesophageal reflux disease) Status: Chronic (13) Neuropathy Status: Chronic (14) Nonallergic rhinitis Status: Chronic (15) Paroxysmal A-fib Status: Chronic Surgical Problems: (1) H/O arthroscopic knee surgery Status: Chronic (2) H/O thoracic aortic aneurysm repair Status: Chronic (3) S/P CABG x 1 Status: Chronic . Procedures: cardiac monitoring IV meds barium esophagram MRI brain PT OT . Consultations: Cardiology Neurology Orthopedics . Pending Studies/Follow-Up: INRs per Anticoagulation Clinic. Please check basic metabolic profile in clinic. . Medication Reconciliation New Medications: Potassium Chloride (Klor-Con M20) 20 Meq Tabcr 20 MEQ PO DAILY, #30 TAB 5 Refills take daily at noon potassium replacement Amlodipine Besylate (Amlodipine Besylate) 5 Mg Tab 5 MG PO QAM, #30 TAB 5 Refills take daily at 8 AM for high blood pressure Amoxicillin & Pot Clavulanate (Amoxicillin/Clavulanate P) 1 Tab Tab 875 MG PO BIDM, #5 TAB take twice a day with breakfast and supper until gone antibiotic for bronchitis Benzonatate (Benzonatate) 100 Mg Cap 100 MG PO Q8H PRN for Cough, #30 CAP 1 Refill Furosemide (Furosemide) 40 Mg Tab 40 MG PO DAILY, #30 TAB 5 Refills take daily at 8 AM for fluid retention / congestive heart failure Lisinopril (Lisinopril) 40 Mg Tab 40 MG PO DAILY, #30 TAB 5 Refills take daily at 8 AM for high blood pressure (new dose) Metoprolol Succinate (Metoprolol Succinate ER) 50 Mg Tabcr 50 MG PO QAM, #30 TAB 5 Refills take daily at 8 AM hold if heart rate is less than 50 for high blood pressure and heart disease (new dose) Continued Medications: Amiodarone HCl (Amiodarone HCl) 200 Mg Tab 200 MG PO DAILY take each morning at 8 AM controls heart rhythm Aspirin (Aspirin Chewable) 81 Mg Chew 81 MG PO DAILY take each morning at 8 AM helps prevent heart attacks and strokes Atorvastatin (Lipitor) 20 Mg Tab 20 MG PO HS, TAB take every evening at 8 PM for high cholesterol Docusate Sodium (Docusate Sodium) 100 Mg Cap 100 MG PO BID take twice a day at 8 AM and 5 PM stool softener for constipation Famotidine (Famotidine) 20 Mg Tab 20 MG PO TID take 3 times a day after meals for acid reflux Fluticasone Propionate (Nasal) (Flonase Allergy Relief) 50 Mcg/Act Spr 2 SPRAY PILI BID use twice a day at 8 AM and 8 PM for nasal congestion / allergies Levalbuterol Tartrate (Levalbuterol Tartrate Hfa) 45 Mcg/Act Aer 1 PUFF INH QID PRN for Wheezing use every 6 hours as needed for wheezing Lorazepam (Lorazepam) 0.5 Mg Tab 0.5 MG PO BID take twice a day at 8 AM and 8 PM for anxiety Magnesium Oxide (Mag-Ox) 400 Mg Tab 400 MG PO BID take twice a day at 8 AM and 5 PM magnesium replacement Polyethylene Glycol 3350 (Miralax) 1 Pow Pow 1 DOSE PO DAILY PRN for Constipation daily as needed for constipation Salmeterol Xinafoate (Serevent Diskus) 50 Mcg Aerp 1 PUFF INH BID use twice a day at 8 AM and 5 PM for COPD Tamsulosin Hcl (Flomax) 0.4 Mg Cap 0.4 MG PO HS take every evening at 8 PM for enlarged prostate Trazodone Hcl (Desyrel) 50 Mg Tab 50 MG PO HS take every evening at 8 PM for depression and insomnia Warfarin Sodium (Coumadin) 5 Mg Tab 5 MG PO HS take every evening at 8 PM skip dose 04/17/17 because you received dose at hospital blood thinner to prevent strokes Discontinued Medications: Furosemide (Lasix) 40 Mg Tab 40 MG PO DAILY PRN for swelling, TAB Lisinopril (Lisinopril) 10 Mg Tab 30 MG PO DAILY Metoprolol Succinate (Metoprolol Succinate ER) 100 Mg Tabcr 100 MG PO QAM Potassium Chloride Microencaps (Potassium Chloride Cr) 10 Meq Tab 10 MEQ PO QAM Admission Information HPI (per Admitting provider): Pt is 76 y/o M with PMH paroxysmal a-fib on Coumadin and amiodarone, HTN, CAD s/ p CABG in 2016, hx TIA, chronic hyponatremia, COPD, s/p thoracic aortic aneurysm repair presented to ER with c/o cough x 6 days. Seen at PCP today and sent in to ER for possible CHF vs PNA. Pt reports clear to yellow productive cough x 6 days with 2 episodes brown/blood tinged sputum. None today. SOB with coughing only. Denies CP. Pt reports past week been sleeping in recliner and past couple weeks sleeping reclined bed to help with his breathing. Noticed bilateral leg edema since his R TKA in 02/18. Pt reports progressive weakness since R TKA in 02/18. He was d/c to [facility] after TKA and was using walker to ambulated. Went home on 03/12/17. Had multiple falls. Went to [facility] for 2 weeks and 03/30/17 to [facility]. States now he is using wheelchair and can' t do his ADL's. Reports having urinary incontinence also and now has erythema groin. Home question of pt choking recently, however pt doesn't feel he has been choking. Denies recent epistaxis. Denies extremity pain or erythema. He has been wearing compression stockings. Denies fever/chills, diaphoresis, N/V/D/ C, [place], dizziness, syncope, vision changes, neck pain, palpitations, sore throat , choking, otalgia, abdominal pain, dysuria, hematuria. Hx echo 2016: EF:60-64%, aortic sclerosis without stenosis, mild-mod aortic insufficiency . Physical Exam (per Admitting): General Appearance: WD/WN, no apparent distress Head: normocephalic, atraumatic Eyes: normal inspection, PERRL, EOMI, sclerae normal ENT: hearing grossly normal, pharynx normal, + pertinent finding (mucous membranes moist. nares bilaterally mild erythema) Neck: supple, no JVD, trachea midline Respiratory/Chest: no respiratory distress, no accessory muscle use, + pertinent finding (+diminished throughout with rales bilateral bases, scattered wheezing ) Cardiovascular: normal peripheral pulses, + bradycardia Abdomen/GI: normal bowel sounds, non tender, soft Back: no CVA tenderness Extremities/Musculoskelatal: no calf tenderness, normal capillary refill, non-tender, + pertinent finding (+pretibial edema 2-3+) Neurologic/Psych: alert, normal mood/affect, oriented x 3 Skin: warm/dry, + rash (groin with erythema, exoriated, satellite lesions) Hospital Course CHF Exam, chest x-ray, and elevated BNP consistent with CHF. Echo demonstrated normal LVEF, no significant valvular pathology. 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 Received IV furosemide with improvement of exam. Chest x-ray 04/12 showed improved pulmonary vascular congestion. Transitioned to oral furosemide. Chest x-ray 04/15 showed improvement. Discharge on furosemide 40 mg PO daily. CHF instructions given. POSSIBLE LOWER RESPIRATORY TRACT INFECTION Productive cough at time of admission. Afebrile. No definite infiltrates on chest x-ray (films show pulmonary edema +/- atelectasis vs infiltrate) MANAGER SEARCH ENGINE swab for influenza A/B Ag negative. Cough may be secondary to CHF or bronchitis. Stopped IV antibiotics. Treated for possible bronchitis with doxycycline. No apparent aspiration per bedside DIGITAL TRAFFIC COORDINATOR eval or barium swallow. Sinus films showed minimal mucosal thickening. Changed antibiotic therapy to amoxicillin / clavulanic acid. Cough improved. POSSIBLE ASPIRATION Seen by DIGITAL TRAFFIC COORDINATOR for bedside swallowing eval. No overt aspiration appreciated. Barium esophagram - small hiatal hernia, no aspiration. May have intermittent aspiration. Given instructions regarding aspiration precautions. CORONARY ARTERY DISEASE History ischemic heart disease, s/p CABG. No anginal symptoms. Slightly elevated troponins (0.063, 0.059, 0.036) probably due to CHF or infection, not acute coronary syndrome. Metoprolol succinate held due to bradycardia, restarted at reduced dose of 50 mg daily. Continue aspirin and statin. PAROXYSMAL ATRIAL FIBRILLATION Continue amiodarone. Metoprolol held due to bradycardia, restarted at reduced dose. Continue warfarin. HYPERTENSION Metoprolol held due to bradycardia, restarted at reduced dose. BP ran high after reducing dose of metoprolol. Added amlodipine. Increased lisinopril to 40 mg daily. BP's improved. Follow and titrate Rx. COPD Bronchospasm could be secondary to bronchitis or CHF. Oxygenating well. Received prednisone with improvement. Incentive spirometry. Continue bronchodilators. GERD Continue famotidine. BPH Byrd catheter inserted at time of admission. Voiding well since removal. Continue tamsulosin. HEMATURIA Probably secondary to Byrd insertion. Resolved. S/P RIGHT TKA 02/06/[address] De Jesus. Continue PT. POOR SHORT TERM MEMORY Sister concerned about problems with short-term memory. Patient acknowledges some difficulties. Neuro consult requested. MRI did not show any significant abnormalities. Consider outpatient neuropsych testing. VTE PROPHYLAXIS Continue warfarin. Ambulate. DISPOSITION Returning to [facility] with PT / OT. Family Medicine follow-up with Dr. Roldan. . Total time spent on discharge = 50 min. This includes examination of the patient, discharge planning, medication reconciliation, and communication with other providers. . Discharge Instructions Date of Service Apr 17, 2017. Admission Reason for Admission: cough and shortness of breath . Discharge Discharge Diagnosis / Problem: congestive heart failure, suspected bronchitis Discharge Goals Goal(s): Decrease discomfort, Improve disease control Activity Recommendations Activity Limitations: resume your previous activity . Instructions / Follow-Up Instructions / Follow-Up APPOINTMENTS: FAMILY MEDICINE 04/23/2017 11:00 AM Olaf Roldan III, MD CARDIOLOGY 08/02/2017 9:25 AM Earle Soria Jr., DO NEUROLOGY Dr. Larkin. Please ask Dr. Roldan to make referral for you. OTHER INSTRUCTIONS: Speech Therapy Discharge Instructions * It is recommended that the patient continue a regular "slippery" diet upon discharge. With this diet, the patient should try to avoid foods that are dry, thick, pasty, or doughy. Adding sauce/condiments to foods (such as butter, gravy, etc) to assist in keeping foods moist is encouraged. The patient should sit fully upright for meals and for 30 minutes after meals. When eating, the patient should keep chin neutral at all times or down for all intake. Medications should be crushed and placed in a carrier such as applesauce or pudding. The use of straws is not recommended. The patient should NOT lay flat, and the head of bed should be upright to at least 30 degrees at all times -including while sleeping. Your INR was 1.9 on 04/17/17. You were given 7.5 mg of warfarin (Coumadin) at [facility] before you were discharged. Resume warfarin (Coumadin) 04/18/17 in the evening with your usual dose of 5 mg each night. Priti will contact you with further instructions. Seek medical attention if you have: * temperature above 101 * chest pain or trouble breathing * abdominal pain, nausea, vomiting * diarrhea, dark stools or bloody stools * any unanswered questions or concerns Call [phone] if symptoms are severe. Call if you have any questions or problems. My cell # is [phone]. You can also reach a [facility] hospitalist on duty at [facility] 24 hours a day by calling [phone]. Please take good care of yourself. Olaf Gabriel . Call your Primary Care doctor if any of the following symptoms or problems start or get worse: * Shortness of breath or difficulty breathing * Wake up at night short of breath * Chest pain * Cough * Swelling of your hands, feet, or legs * More fatigued or tired with your normal activity * Palpitations - sudden fast heart beats WEIGHT * Weigh yourself every morning after using the bathroom. * Use the same scale. * Wear the same amount of clothing. * Write your weight down on a chart. * Call your Primary Care doctor if you gain more than 2-3 pounds in 1-2 days. MEDICATIONS * Use this discharge instruction sheet for medication instructions. * Take your medications at the time your doctor ordered. * Do not skip a dose of your medicines. * If you miss a dose of medicine, take it as soon as possible, but DO NOT DOUBLE A DOSE. * Read your medicine information when you get home. * Know all of the side effects of your medicine. If in doubt, ask your pharmacist * Call your Primary Care doctor's office if you have any side effects. * Be sure all of your doctors know what medicine and herbs you take (including cold, flu, and herbal medicine). Take the following with you to your follow-up doctor appointments: * Weight Chart * Medication List * List of questions Do not drink excessive alcohol, beer or wine. Current Hospital Diet Patient's current hospital diet: AHA Diet (Heart Healthy), Low Sodium Diet (2gm Na) Discharge Diet Recommended Diet: AHA Diet (Heart Healthy) Fluid Restriction: 2000 ml (8 cups) Procedures Procedures Performed: barium swallow - small hiatal hernia, no sign of aspiration MRI brain- no sign of stroke or tumor Pending Studies Studies pending at discharge: no Medical Emergencies . Who to Call and When: Call 911 or go to the Emergency Room if: * If at any time you feel your situation is an emergency * You have tightness or pain in your chest that does not go away with rest or Nitroglycerin * You are very short of breath even with rest . Non-Emergent Contact Non-Emergency issues call your: Primary Care Provider, Correction Officer [facility], Hospital Doctor . . "Provider Documentation" section prepared by Olaf Gabriel. . VTE Core Measure Inpt VTE Proph given/why not?: Warfarin (Coumadin) .
== END 2017-04-17 15:24 | disposition home or self-care (01) | DRG 292 ==
LOC: C.EDB 14:00 → C.MED 17:32 → ENRESERV 17:39
PROVIDERS: ADMIT Family Medicine; ATTEND Hospitalist
DX: I50.33 Acute on chronic diastolic (congestive) heart failure (principal); I24.8 Other forms of acute ischemic heart disease; J90 Pleural effusion, not elsewhere classified; J44.1 Chronic obstructive pulmonary disease with (acute) exacerbation; E87.1 Hypo-osmolality and hyponatremia; J44.0 Chronic obstructive pulmonary disease with (acute) lower respiratory infection; Z66 Do not resuscitate; F41.9 Anxiety disorder, unspecified; R29.6 Repeated falls; N40.0 Benign prostatic hyperplasia without lower urinary tract symptoms; I25.10 Atherosclerotic heart disease of native coronary artery without angina pectoris; E78.5 Hyperlipidemia, unspecified; K21.9 Gastro-esophageal reflux disease without esophagitis; I73.9 Peripheral vascular disease, unspecified; J22 Unspecified acute lower respiratory infection; I48.0 Paroxysmal atrial fibrillation; R31.9 Hematuria, unspecified; Z96.651 Presence of right artificial knee joint; Z79.82 Long term (current) use of aspirin; Z79.01 Long term (current) use of anticoagulants; Z88.8 Allergy status to other drugs, medicaments and biological substances; Z95.1 Presence of aortocoronary bypass graft; Z87.891 Personal history of nicotine dependence; Z86.73 Personal history of transient ischemic attack (TIA), and cerebral infarction without residual deficits; Z82.3 Family history of stroke

== ENCOUNTER → 2017-04-20 | Outpatient (CLI) | payer OTHER, BC ==
[~2017-04-20] MED LIST changes: -ACET-24 PO; -ALOEMIS TOP; +AMOX1TAB43 PO; -ASCO-63 PO; +BENZ100C7 PO; -CALC-574 PO; -CLOTCRE5 TOP; +FAMO1TAB47 PO; -FRRG PO; -FRS/40 PO; +LEVA45AE INH; -LSN20 PO; +LSN40 PO; +LSX40 PO; +MCRK20 PO; -MULT-513 PO; +NRV5 PO; -POTA10TA79 PO; -RANI300T2 PO; -SALI0.6515; -SENN-61 PO; +TAMS0.4C38 PO; -TPRSR/100 PO; +TPRSR50 PO; +TRAZ-120 PO; -TRMCR180 TOP; -ULT50 PO; -ULT50X PO; -URX/10 PO; -VNTHFA/IN INH; -[UNRECOGNIZED DRUG - CODE] TOP
[2017-04-20 08:34] LABS: INR 2.3 (0.9-1.1)
== END | disposition home or self-care (01) ==
LOC: C.LABWYN 08:07
DX: Z51.81 Encounter for therapeutic drug level monitoring (principal); Z79.01 Long term (current) use of anticoagulants

== ENCOUNTER → 2017-04-26 | Outpatient (CLI) | payer OTHER, BC ==
[2017-04-26 12:46] LABS: INR 2.9 (0.9-1.1)
== END | disposition home or self-care (01) ==
LOC: C.LABWYN 12:07
PROVIDERS: ATTEND Pharmacist Pharmacotherapy
DX: Z51.81 Encounter for therapeutic drug level monitoring (principal); Z79.01 Long term (current) use of anticoagulants

== ENCOUNTER → 2017-05-10 | Outpatient (CLI) | payer OTHER, BC ==
[2017-05-10 13:15] LABS: INR 3.3 (0.9-1.1)
== END | disposition home or self-care (01) ==
LOC: C.LABWYN 10:59
PROVIDERS: ATTEND Family Medicine
DX: I48.91 Unspecified atrial fibrillation (principal)

== ENCOUNTER → 2017-05-24 | Outpatient (CLI) | payer OTHER, BC ==
[2017-05-24 13:19] LABS: INR 2.5 (0.9-1.1)
== END | disposition home or self-care (01) ==
LOC: C.LABWYN 08:42
PROVIDERS: ATTEND Family Medicine
DX: I48.91 Unspecified atrial fibrillation (principal)

== ENCOUNTER → 2017-06-07 | Outpatient (CLI) | payer OTHER, BC | END | disposition home or self-care (01) | LOC: C.LABWYN 08:15 | PROVIDERS: ATTEND Pharmacist Pharmacotherapy | DX: I48.91 Unspecified atrial fibrillation (principal) ==

== ENCOUNTER → 2017-06-21 | Outpatient (CLI) | payer OTHER, BC ==
[2017-06-21 12:54] LABS: INR 2.3 (0.9-1.1)
== END | disposition home or self-care (01) ==
LOC: C.LABWYN 12:55
PROVIDERS: ATTEND Pharmacist Pharmacotherapy
DX: I48.0 Paroxysmal atrial fibrillation (principal)

== ENCOUNTER → 2017-07-05 | Outpatient (CLI) | payer OTHER, BC ==
[2017-07-05 13:50] LABS: BLOOD UREA NITROGEN 17 mg/dl (7-18); CALCIUM 8.1 mg/dl (8.5-10.1); CARBON DIOXIDE 27 mmol/L (21-32); CREATININE 1.11 mg/dl (0.60-1.40); GLUCOSE 88 mg/dl (70-99); POTASSIUM 4.3 mmol/L (3.5-5.1); SODIUM 137 mmol/L (136-145)
== END | disposition home or self-care (01) ==
LOC: C.LABWYN 17:56
PROVIDERS: ATTEND Family Medicine
DX: I50.32 Chronic diastolic (congestive) heart failure (principal); I25.10 Atherosclerotic heart disease of native coronary artery without angina pectoris; I48.91 Unspecified atrial fibrillation

== ENCOUNTER 2017-07-22 08:23 | Emergency (ER) | payer OTHER, BC ==
[~2017-07-22] VITALS: Ht 185.4 cm; Wt 78.0 kg
[2017-07-22 08:28] VITALS: BP 103/52; PULSE 60; TEMP 36.6; O2SAT 98; Ht 185.4 cm; Wt 78.0 kg
[2017-07-22] MEDS ORDERED: FRS/40 PO (08:53)
--- NOTE | 2017-07-22 08:54 | EMERGENCY ROOM VISIT NOTE ---
History Report prepared by Magdiel: Nilay Parra Under the Supervision of: Dr. Gabriel Richmond M.D. First contact with patient: 08:31 Chief Complaint: LACERATION/CUT (NON-SUTURE) Stated Complaint: BIT TONGUE Nursing Triage Summary: pt here with bleeding from tongue after biting it while eating breakfast this am. no bleeding noted at this time History of Present Illness The patient is a 77 year old male who presents to the Emergency Room due to a recent tongue laceration that occurred 2 hours ago when he bit his tongue eating cereal. Patient states that his tongue was bleeding and then stopped by itself on his way to the ER. Patient states that he used ice packs and a wash clothes to try and relieve the symptoms. Patient adds that he bit the same area of his tongue 12 years ago. He states that during that visit he got his tongue sutured. He states that the bleeding was worse during that visit. Patient adds that he takes Coumadin for atrial fibrillation. He states that he last got his Coumadin levels checked 5 days ago and his levels were "a little above 2". Patient adds that he has bruising on his right arm. Pertinent surgical history includes a right knee replacement 5 months ago and a open heart surgery for an aneurysm. Patient adds that he has a history of CHF. Patient states that his PCP is Dr. Roldan at [facility]. Patient states that he believes he is up to date with his tetanus shot. Source of History: patient, spouse/significant other Onset: 2 hours ago Position: tongue Quality: other (Laceration) Modifying Factors (Worsening): other (None) Modifying Factors (Relieving): ice (and wash cloth) Note: Patient denies any current bleeding. Review of Systems See HPI for pertinent positives & negatives. A total of 10 systems reviewed and were otherwise negative. Past Medical & Surgical Medical Problems: (1) Anticoagulated on warfarin (2) Anxiety (3) BPH (benign prostatic hyperplasia) (4) BPH (benign prostatic hypertrophy) (5) CAD (coronary artery disease) (6) Cerebrovascular disease (7) Chronic sinusitis (8) COPD (chronic obstructive pulmonary disease) (9) Diverticulosis (10) Diverticulosis of colon (11) Dyslipidemia (12) GERD (gastroesophageal reflux disease) (13) Neuropathy (14) Nonallergic rhinitis (15) Paroxysmal A-fib Surgical Problems: (1) H/O arthroscopic knee surgery (2) H/O thoracic aortic aneurysm repair (3) S/P CABG x 1 Old medical records were reviewed. Nurse's notes were reviewed and I agree with. Family History Stroke FATHER MOTHER Social History Smoking Status: Former Smoker Drug Use: none Marital Status: Occupation Status: retired Current/Historical Medications Scheduled Amiodarone HCl (Amiodarone HCl), 200 MG PO DAILY Amlodipine Besylate (Amlodipine Besylate), 5 MG PO QAM Aspirin (Aspirin Chewable), 81 MG PO DAILY Atorvastatin (Lipitor), 20 MG PO HS Docusate Sodium (Docusate Sodium), 100 MG PO BID Famotidine (Famotidine), 20 MG PO TID Fluticasone Propionate (Nasal) (Flonase Allergy Relief), 2 SPRAY PILI BID Furosemide (Lasix), 20 MG PO DAILY Lisinopril (Lisinopril), 40 MG PO DAILY Lorazepam (Lorazepam), 0.5 MG PO BID Magnesium Oxide (Mag-Ox), 400 MG PO BID Metoprolol Succinate (Metoprolol Succinate ER), 50 MG PO QAM Potassium Chloride (Klor-Con M20), 20 MEQ PO DAILY Tamsulosin Hcl (Flomax), 0.4 MG PO HS Warfarin Sodium (Coumadin), 5 MG PO HS Scheduled PRN Polyethylene Glycol 3350 (Miralax), 1 DOSE PO DAILY PRN for Constipation Allergies Coded Allergies: Guaifenesin (Verified Adverse Reaction, Unknown, GETS REALLY SICK FROM MUCINEX, 07/22/17) Physical Exam Vital Signs Date Time Temp Pulse Resp B/P (MAP) Pulse Ox O2 Delivery O2 Flow Rate FiO2 07/22/17 08:28 36.6 60 16 103/52 98 Room Air Physical Exam General: Non-ill appearing older male in no acute distress. HEENT: Normal cephalic atraumatic. Pupils are equal round and reactive to light. Extraocular movements are intact. Small, slightly macerated abrasion in right anterior tongue otherwise oropharynx is pink with moist mucous membranes. No gap or bleeding. No laceration on the opposite side of tongue. No swelling of the mouth lips. Neck: Supple with a midline trachea. No meningeal signs or stiffness, no JVD. No Stridor. Chest: Clear to auscultation bilaterally. No wheezes or rhonchi. No increased work of breathing. Heart: regular rate and rhythm. Abdomen: Soft nontender, nondistended without rebound guarding or rigidity. Extremities: No cyanosis clubbing or edema. No calf tenderness or assymetry Spine/Back. Non tender to palpation. No CVA tenderness Skin: Good turgor without rashes. Neurologic exam: Nonfocal. Medical Decision & Procedures ED Course 0832: Past medical records reviewed. The patient was evaluated in room A3, and a complete history and physical examination were performed. 0856: Upon reevaluation, the patient is resting comfortably. I discussed the results and treatment plan with him. He verbalized agreement of the treatment plan. The patient was discharged home. Medical Decision Differentials include, but are not limited to; tongue laceration and anticoagulation use. This patient comes in as described above he bit his tongue about 2 hours ago. He is on Coumadin and his INR waas checked a couple days ago and was the low twos. He has no active bleeding and no other complaints. On exam, it is more of a macerated area and there is no open laceration that would require closing. At this point without bleeding and without a large gap , I do not think that suturing is indicated and in fact would likely make him worse if we start trying to sell his tongue. I told him to have a soft mechanical or liquid diet today if he has any further bleeding he can apply ice or cold water and return to the ER if the bleeding persists. He should return if: any new problems or concerns. The patient and his were happy the plan and he was discharged to home. Medication Reconcilliation Current Medication List: was personally reviewed by me Blood Pressure Screening Patient's blood pressure: Normal blood pressure Blood pressure disposition: Did not require urgent referral Impression Primary Impression: Tongue laceration Additional Impression: Anti-coagulation use Scribe Attestation The scribe's documentation has been prepared under my direction and personally reviewed by me in its entirety. I confirm that the note above accurately reflects all work, treatment, procedures, and medical decision making performed by me. Departure Information Dispostion Home / Self-Care Referrals CELESTINO RODRIGUEZ (PCP) Forms HOME CARE DOCUMENTATION FORM, IMPORTANT VISIT INFORMATION, WORK / SCHOOL INSTRUCTIONS Patient Instructions My [facility] Additional Instructions Use a soft mechanical or liquid diet for the next 24 hours. If there is any bleeding you can use ice or ice water Return if worsening of symptoms, increasing or further bleeding, any new problems or concerns Problem Qualifiers
== END 2017-07-22 08:55 | disposition home or self-care (01) ==
LOC: C.EDB 08:26 → C.EDA 08:55
DX: S01.512A Laceration without foreign body of oral cavity, initial encounter (principal); X58.XXXA Exposure to other specified factors, initial encounter; Z79.01 Long term (current) use of anticoagulants; Z79.899 Other long term (current) drug therapy; I25.10 Atherosclerotic heart disease of native coronary artery without angina pectoris; I48.91 Unspecified atrial fibrillation; Z87.891 Personal history of nicotine dependence

== ENCOUNTER 2018-07-08 18:03 | Inpatient (IN) ==
[2018-07-08] MEDS ORDERED: NYSTATIN POWDER 15GM BTL EXT STA (19:07)
--- NOTE | 2018-07-08 20:09 | XRay Report ---
XR chest 1V portable HISTORY: 78 years-old Male weakness acute weakness COMPARISON: Chest radiograph 04/15/2017 TECHNIQUE: Portable AP view the chest FINDINGS: Cardiac silhouette is enlarged, unchanged. Prior median sternotomy. Calcification the thoracic aortic arch. Pulmonary vascular congestion. No pneumothorax, pleural effusion or lobar airspace consolidati on. Asymmetric interstitial opacities of the left lung. Degenerative changes of the shoulders and spi ne. IMPRESSION: 1. Cardiomegaly with pulmonary vascular congestion. 2. Mild asymmetric interstitial opacities throughout the left lung may reflect developing pulmonary e naveen or nonspecific pneumonitis. Correlate clinically. The above report was generated using voice recognition software. It may contain grammatical, syntax o r spelling errors. Electronically signed by: Bob Hernandez M.D. 07/08/2018 8:08 PM
[2018-07-08 20:20] LABS: Basophils # (auto) 0.01 K/uL (0-0.2); Basophils % (auto) 0.1 %; Eosinophils # (auto) 0.12 K/uL (0-0.5); Eosinophils % (auto) 1.5 %; Hematocrit (blood only) 34.9 % (42-52); Hemoglobin 12.1 g/dL (14.0-18.0); INR 3.1 (0.9-1.1); Immature Granulocytes # (auto) 0.03 K/uL (0.00-0.02); Immature Granulocytes % (auto) 0.4 %; Lymphocytes # (auto) 0.84 K/uL (1.2-3.4); Lymphocytes % (auto) 10.5 %; Mean Corpuscular Hgb Conc 34.7 g/dL (32-36); Mean Corpuscular Volume 87.7 fL (80-100); Mean Platelet Volume 10.7 fL (7.4-10.4); Monocytes # (auto) 0.88 K/uL (0.11-0.59); Neutrophils # (auto) 6.13 K/uL (1.4-6.5); Neutrophils % (auto) 76.5 %; Platelet Count 152 K/uL (130-400); Prothrombin Time 28.9 Seconds (9.0-12.0); RDW Coefficient of Variation 14.5 % (11.5-14.5); RDW Standard Deviation 47.1 fL (36.4-46.3); Red Blood Count 3.98 M/uL (4.7-6.1); White Blood Count 8.01 K/uL (4.8-10.8)
[2018-07-08 20:24] LABS: Appearance Urine Cloudy (Clear); Bacteria Urine Automated Negative (Negative); Bilirubin Urine Negative (Negative); Color Urine Yellow; Glucose Urine UA Negative (Negative); Ketones Urine Negative (Negative); Leukocyte Esterase Urine Negative (Negative); Nitrite Urine Negative (Negative); Protein Urine 2+ (Negative); Urobilinogen Urine Negative (Negative)
[2018-07-08 20:33] LABS: Albumin Level 2.7 gm/dl (3.4-5.0); BUN Creatinine Ratio 20.3 (10-20); Blood Urea Nitrogen 33 mg/dl (7-18); Calcium 7.8 mg/dl (8.5-10.1); Carbon Dioxide 27 mmol/L (21-32); Chloride 104 mmol/L (98-107); Est GFR (African American) 46.8; Est GFR (Non-African American) 40.4; Glucose 92 mg/dl (70-99); Potassium 4.9 mmol/L (3.5-5.1); Sodium 135 mmol/L (136-145)
[2018-07-08 20:44] LABS: Alanine Aminotransferase 23 U/L (12-78); Albumin Globulin Ratio 0.8 (0.9-2); Alkaline Phosphatase 115 U/L (45-117); Aspartate Aminotransferase 24 U/L (15-37); Bilirubin,Total 0.6 mg/dl (0.2-1); Creatine Kinase 103 U/L (39-308); Creatine Kinase MB 3.1 ng/ml (0.5-3.6); Globulin 3.6 gm/dl (2.5-4.0); NT Pro B Type Natriuretic Pept 5692 pg/ml (0-1800); Total Protein 6.3 gm/dl (6.4-8.2); Troponin I < 0.015 ng/ml (0-0.045)
[2018-07-08] MEDS ORDERED: IOVERSOL 100ml IV PRN (20:53)
--- NOTE | 2018-07-08 21:15 | CT Scan Report ---
CT pelvis w/IV con only HISTORY: 78 years-old Male celulitis to scrotal area acute pain and swelling of the scrotum COMPARISON: CT abdomen and pelvis 05/07/2016 TECHNIQUE: Multiple axial CT images of the pelvis were obtained following the intravenous administrat ion of 93 mL Optiray 320 IV contrast. A dose lowering technique was used consistent with the principa ls of VARINDER. FINDINGS: Imaged kidneys are unremarkable. Decompressed or bladder with wall thickening and Byrd catheter. Pro minent prostate with associated central calcifications. Colonic diverticulosis without acute divertic ulitis. Nonvisualization of the appendix. No ascites or mesenteric inflammation. There is moderate ge neralized body wall edema. Extensive calcification of the aorta and iliac arteries. Enlarged bilatera l inguinal chain lymph nodes measure up to 2.7 x 1.5 cm on the right and 1.9 x 1.1 cm on the left. Th ere is extensive subcutaneous edema about the scrotum and base of the.. No deep tissue air identified . Bilateral hydroceles are also noted. No drainable fluid collection. Degenerative changes of the spine, pelvis and hips. No acute fracture identified. IMPRESSION: 1. Moderate body wall edema with large amount of subcutaneous edema about the scrotum is noted in ad dition to to bilateral hydroceles. No deep tissue air identified. 2. No drainable fluid collection. 3. Bilateral inguinal chain adenopathy, likely reactive. Follow-up recommended. 4. No acute intrapelvic abnormality identified. The above report was generated using voice recognition software. It may contain grammatical, syntax o r spelling errors. Electronically signed by: Bob Hernandez M.D. 07/08/2018 9:13 PM
[2018-07-08] MEDS ORDERED: PIPERACILL/TAZOBAC CONSULT ACTIVE PRN (21:30)
[2018-07-08] MEDS ORDERED: DAPTOmycin 525 MG in SYRINGE 0 ML IV ONE (21:30)
[2018-07-08] MEDS ORDERED: PIPERACILLIN/TAZOBACTAM 4.5 GM/120 ML BAG IV ONE (21:30)
[2018-07-08] MEDS ORDERED: FUROSEMIDE 40 MG/4 ML VIAL IV STA (21:30)
[2018-07-09] MEDS ORDERED: ONDANSETRON INJ 2 MG/ML 2 ML VIAL IV PRN (00:56)
[2018-07-09] MEDS ORDERED: PIPERACILL/TAZOBAC CONSULT ACTIVE PRN (00:56)
[2018-07-09] MEDS ORDERED: NITROGLYCERIN SL 0.4 MG/TAB TAB SL PRN (00:56)
[2018-07-09] MEDS ORDERED: FLUCONAZOLE 200 MG/5 ML UDP PO ONE (01:30)
--- NOTE | 2018-07-09 01:45 | History and Physical Report ---
DATE OF ADMISSION: 07/08/2018 CHIEF COMPLAINT: Lower extremity edema. HISTORY OF PRESENT ILLNESS: This is a 78-year-old male with past medical history significant for hyperlipidemia, COPD, moderate, chronic sinusitis, history of paroxysmal atrial fibrillation, chronic diastolic heart failure, dilatation of thoracic aorta, lower extremity venous insufficiency, diverticulosis of colon, GERD, BPH, history of lower extremity ulcers, that has healed, history of peripheral neuropathy, generalized anxiety disorder, status post ascending aortic aneurysm repair, history of TIA, presents with worsening lower extremity edema. He went to 1 year followup visit with the cardiology clinic today and has a lot of scrotal edema and lower extremity edema and weight gain of 18 pounds in last 6 weeks. Reports is also having difficulty urinating. He is only dripping urine, he is on Lasix. Denies any shortness of breath, fever or cough. Has occasional headaches, no blurred vision. Appetite is good. He had some difficulty swallowing pills, has to drink a lot of water for swallowing the pills. No nausea, no abdominal pain. Normal bowel movements. He has history of ulcers in the lower extremities, used to go to wound clinic but they healed up.Patient is worried about his scrotal edema and worsening lower extremity edema. Currently, resting comfortable and hemodynamically stable. ALLERGIES: GUAIFENESIN. PAST MEDICAL HISTORY: As mentioned above. PAST SURGICAL HISTORY: Ascending aortic aneurysm repair in 2016, colonoscopy, CABG, cystoscopy, EGD with biopsy, excision of benign lesion on his trunk, repair of the right knee cartilage. MEDICATIONS: The patient is on amlodipine 5 mg p.o. daily, Lipitor 20 mg p.o. daily, MiraLax 17 g daily, magnesium oxide 400 mg p.o. b.i.d., prednisone 20 mg rescue kit, lisinopril 40 mg p.o. daily, ascorbic acid 500 mg p.o. daily, triamcinolone apply topically to affected area b.i.d., Lasix 40 mg p.o. daily, Ativan 0.5 mg p.o. b.i.d. p.r.n., Colace 100 mg p.o. b.i.d., Pepcid 20 mg p.o. t.i.d., amiodarone 200 mg p.o. daily, Flomax 0.4 mg p.o. daily, Tessalon Perles 1 capsule p.o. t.i.d. p.r.n., ipratropium nasal spray at bedtime, Toprol-XL 50 mg p.o. daily, potassium chloride 20 mEq p.o. daily, Coumadin 5 mg daily, Tylenol 650 mg p.o. q. 4 hours p.r.n., Flonase 2 sprays in each nostril daily as needed, milk of magnesia as needed, nystatin powder t.i.d. FAMILY HISTORY: Significant for mother had stroke. Sister has allergies. Daughter has allergies. SOCIAL HISTORY: Lives alone. Sister lives in [place], son and daughter and son lives in [facility]. Former smoker, quit in 2005, smoked 1 pack a day for 50 years. Alcohol occasionally. No drug use. REVIEW OF SYMPTOMS: As per HPI. Rest of review of symptoms is negative. PHYSICAL EXAMINATION: GENERAL: The patient is of moderate build, not in acute distress. VITAL SIGNS: Temperature 37.1, respiratory rate 18, pulse 77, blood pressure 96/70, oxygen 94% on room air. HEENT: No pallor, no icterus. Pupils equal, round, reactive to light. NECK: No JVD, no neck masses, no carotid bruits. CARDIOVASCULAR: S1, S2 heard, regular rate and rhythm, no murmur, no gallop. RESPIRATORY SYSTEM: Normal AP diameter. No accessory muscle use. No wheezing, no crackles. ABDOMEN: Soft, bowel sounds present. Nontender. No distention. CENTRAL NERVOUS SYSTEM: Cranial nerves II-XII grossly intact, nonfocal. EXTREMITIES: Bilateral lower extremity edema seen. Chronic skin changes seen, slightly warm and erythematous and swollen, scrotal edema seen and also erythematous rash seen in the groins and groin areas wet. LABS: WBC 8, hemoglobin 12.1, hematocrit 34.9, platelets 152. PT 28.9, INR 3.1. Sodium 135, potassium 4.9, chloride 104, bicarbonate 27, BUN 33, creatinine 1.6, serum glucose 92, calcium 7.8, total bilirubin 0.6, AST 24, ALT 23, alkaline phosphatase 115. Total creatinine kinase is 103, troponin I less than 0.015. BNP 5692. TSH 1.77. Urinalysis positive for some blood. CT pelvis, moderate body wall edema, with large amount of subcutaneous edema over the scrotum is noted in addition to bilateral hydroceles, no deep tissue air is identified. No drainable fluid collection, bilateral inguinal chain adenopathy possibly reactive. No acute intrapelvic abnormality identified. Chest x-ray: Cardiomegaly with pulmonary vascular congestion. EKG: Shows a junctional rhythm at 54, nonspecific ST changes. ASSESSMENT AND PLAN: This 78-year-old male presents with increasing lower extremity edema and weight gain. 1. Increasing lower extremity edema, weight gain. Denies any shortness of breath, CXR shows congestion.CT pelvis NO drainable collection,Large subcutaneous edema seen. Possibly , probably from acute on chronic diastolic congestive heart failure. We will place on IV Lasix 40 b.i.d. Daily weights, I's and O's. We will follow echocardiogram and consult cardiology for further recommendation. Close monitor in the tele floor. 2. Possible cellulitis of lower extremities, they are erythematous and warm to touch and also reactive lymph nodes in the groin, so will place him on IV Zosyn and doxycycline for now and follow the response. 3. Impetigo/ fungal infection of the groins. Will place him on clotrimazole cream b.i.d. and also will give a short course of Diflucan and follow the response. 4. History of atrial fibrillation, currently rhythm showed junctional rhythm. We will follow the serial cardiac enzymes. The patient is on Coumadin, INR is therapeutic. The patient is on amiodarone and Toprol-XL, heart rate was in bradycardia. Cardiology notes mention-wants to adjust medication Monitor on tele floor. 5. Allergic rhinitis. Home medications. 6. BPH. Flomax. 7. Gastroesophageal reflux disease. On Pepcid. 8. Hypertension. on lisinopril and Toprol-XL, currently getting IV diuretics and also on amlodipine. We will monitor blood pressure closely. 9. Hyperlipidemia, on statin. 10. History of TIA, on statin, and Coumadin. 11. History of ascending aortic aneurysm repair. 12. Chronic obstructive pulmonary disease, currently seems stable. Not on any inhalers and will monitor closely. 13. Deep venous thrombosis prophylaxis. INR therapeutic. 14. Disposition: Close monitoring in the med/surg tele floor. Level 1 full code. PT and OT prior to discharge. Social Service to help with discharge planning. MTDD
[2018-07-09] MEDS: PIPERACILLIN/TAZOBACTAM 3.375 GM in DEXTROSE 5% 100 ML IV SCH ×2 (04:49→11:55)
[2018-07-09 07:12] LABS: Basophils # (auto) 0.01 K/uL (0-0.2); Basophils % (auto) 0.2 %; Eosinophils # (auto) 0.15 K/uL (0-0.5); Eosinophils % (auto) 2.5 %; Hematocrit (blood only) 33.8 % (42-52); Hemoglobin 11.3 g/dL (14.0-18.0); Immature Granulocytes # (auto) 0.02 K/uL (0.00-0.02); Immature Granulocytes % (auto) 0.3 %; Lymphocytes # (auto) 0.73 K/uL (1.2-3.4); Mean Corpuscular Hgb Conc 33.4 g/dL (32-36); Mean Corpuscular Volume 88.7 fL (80-100); Mean Platelet Volume 10.4 fL (7.4-10.4); Monocytes # (auto) 0.77 K/uL (0.11-0.59); Monocytes % (auto) 12.7 %; Neutrophils # (auto) 4.38 K/uL (1.4-6.5); Neutrophils % (auto) 72.3 %; Platelet Count 125 K/uL (130-400); RDW Coefficient of Variation 14.7 % (11.5-14.5); RDW Standard Deviation 48.2 fL (36.4-46.3); Red Blood Count 3.81 M/uL (4.7-6.1); White Blood Count 6.06 K/uL (4.8-10.8)
[2018-07-09 07:46] LABS: BUN Creatinine Ratio 19.6 (10-20); Blood Urea Nitrogen 30 mg/dl (7-18); Calcium 7.7 mg/dl (8.5-10.1); Carbon Dioxide 26 mmol/L (21-32); Chloride 105 mmol/L (98-107); Est GFR (Non-African American) 42.3; Glucose 88 mg/dl (70-99); Magnesium 2.3 mg/dl (1.8-2.4); Potassium 4.3 mmol/L (3.5-5.1); Sodium 136 mmol/L (136-145)
[2018-07-09 07:51] LABS: Troponin I < 0.015 ng/ml (0-0.045)
--- NOTE | 2018-07-09 08:33 | Hospitalist Progress Note ---
Date of Service July 09, 2018 Subjective Contniuation H and P: A/P:Victor Manuel also has MARLENA On CKD. Baseline cr 1.0 to 1.2. presented with Cr 1.^. getting diuretics. Will follow labs closely. Results & Data Vital Signs (Past 12 Hours) Vital Signs Temp Pulse Pulse Resp BP BP BP 07/09/18 07:52 36.7 C 55 L 20 157/61 H 07/09/18 07:25 46 L 07/09/18 02:30 54 L 07/09/18 00:56 36.4 C L 56 L 19 142/57 H 07/09/18 00:08 54 L 20 159/55 H 07/08/18 23:03 77 18 96/70 L 07/08/18 21:10 53 L 18 160/52 H Pulse Ox 07/09/18 07:52 94 07/09/18 07:25 07/09/18 02:30 07/09/18 00:56 91 07/09/18 00:08 94 07/08/18 23:03 94 07/08/18 21:10 94
[2018-07-09] MEDS: FUROSEMIDE 40 MG in SYRINGE 0 ML IV SCH ×2 (08:53→21:03)
[2018-07-09] MEDS: DOXYCYCLINE HYCLATE 100 MG CAP PO SCH ×2 (08:53→21:00)
[2018-07-09] MEDS: CLOTRIMAZOLE 1% CR 15 GM TUBE EXT SCH ×3 (08:54→21:11)
[2018-07-09] MEDS ORDERED: BENZONATATE 100 MG CAPSULE PO PRN (10:29)
[2018-07-09] MEDS ORDERED: AMLODIPINE BESYLATE 5 MG TAB PO SCH (10:30)
[2018-07-09] MEDS ORDERED: POLYETHYLENE (MIRALAX) 17 GM PACK PO SCH (10:45)
[2018-07-09] MEDS: FAMOTIDINE 20 MG TAB PO SCH ×2 (11:57→20:59)
[2018-07-09] MEDS: FLUTICASONE PROPIONATE NA SPR 16 GM BTL SCH ×2 (11:57→20:58)
[2018-07-09] MEDS: MAGNESIUM OXIDE 400 MG TAB PO SCH ×2 (11:57→17:09)
[2018-07-09] MEDS ORDERED: POTASSIUM CHLORIDE 20 MEQ TABCR PO SCH (12:00)
[2018-07-09] MEDS: METOPROLOL SUCC 50MG EXT REL TAB PO SCH (12:00)
[2018-07-09] MEDS: AMIODARONE 200 MG TAB PO SCH (12:10)
[2018-07-09] MEDS: WARFARIN SOD 5 MG TAB PO SCH (17:09)
--- NOTE | 2018-07-09 18:18 | Cardiology Consultation ---
Date of Consultation July 09, 2018 Assessment & Plan (1) Acute right heart failure: Agree with current dose of IV furosemide 40 mg IV twice daily. Byrd catheter has been placed. Discontinue amlodipine. Monitor renal function and electrolytes, although I am optimistic that perhaps function will improve with diuretic therapy. (2) Paroxysmal A-fib: Stable sinus bradycardia noted. We will repeat EKG tomorrow. Continue prior to hospital dose of metoprolol succinate and amiodarone. Continue warfarin. (3) Venous stasis ulcers of both lower extremities: Agree with starting antibiotics for now, will likely need to try to limit IV fluid intake if at all possible, will reassess antibiotic regimen tomorrow. History of Present Illness Attending Physician: Basilia Harrington MD History of Present Illness Dallin Tariq Jr David is a 78 year old male seen in cariology consultation per the request of Dr Salcido for the evaluation of lower extremity edema, scrotal edema. The patient complains of several weeks of progressively increasing lower extremity edema and specifically scrotal edema. He states that when he is in bed with his legs elevated his leg edema typically improves. For about the last week however he has had new scrotal edema. He was seen in cardiology clinic ye sterday by Janneth Cordova PA-C, having previously been seen a year ago by Dr. Soria. His weight is trended up 15 pounds in the last 3 weeks and 20 to 25 pounds in the last 6 weeks. His home medication includes amlodipine 5 mg by mouth daily. Diuretic regimen includes furosemide 40 mg by mouth daily. PAST MEDICAL HISTORY: 1.Ascending thoracic aortic aneurysm, status post repair. 2.Coronary artery disease, status post CABG x1 with a vein graft to the posterior descending artery, November 2015. 3.Paroxysmal atrial fibrillation on chronic amiodarone and Coumadin. 4.Hypertension. 5.History of TIA. 6.History of tobacco abuse. 7.History of hyponatremia on chlorthalidone. Allergies Allergy/AdvReac Type Severity Reaction Status Date / Time guaifenesin AdvReac Unknown GETS Verified 07/08/18 23:52 REALLY SICK FROM MUCINEX Home Medications Home Medications Medication Instructions Recorded Confirmed Type amiodarone 200 mg tablet 200 mg PO QAM 05/22/18 07/08/18 History amlodipine 5 mg tablet 5 mg PO QAM 05/22/18 07/08/18 History atorvastatin 20 mg tablet 20 mg PO QPM 05/22/18 07/08/18 History docusate sodium 100 mg capsule 100 mg PO QPM 05/22/18 07/08/18 History famotidine 20 mg tablet 20 mg PO AMPM tab 05/22/18 07/08/18 History fluticasone propionate 100 2 inha INH AMPM ea 05/22/18 07/08/18 History mcg/actuation blister powder for inhalation lisinopril 40 mg tablet 40 mg PO QAM 05/22/18 07/08/18 History lorazepam 0.5 mg tablet 0.5 mg PO QAM tab 05/22/18 07/08/18 History magnesium 400 mg (as magnesium 400 mg PO BID 05/22/18 07/08/18 History oxide) tablet metoprolol succinate ER 50 mg 50 mg PO DAILY 05/22/18 07/08/18 History tablet,extended release 24 hr polyethylene glycol 3350 17 17 gm PO DAILY 05/22/18 07/08/18 History gram/dose oral powder potassium chloride ER 20 mEq 20 meq PO .DAILY AT NOON 05/22/18 07/08/18 History tablet,extended release(part/cryst) tamsulosin 0.4 mg capsule 0.4 mg PO QPM cap 05/22/18 07/08/18 History warfarin 5 mg tablet 5 mg PO QPM tab 05/22/18 07/08/18 History benzonatate 100 mg PO TID PRN 07/08/18 07/08/18 History furosemide 40 mg PO QAM 07/08/18 07/08/18 History nystatin [Nystop] 1 applic TOPICAL TID PRN 07/08/18 07/08/18 History Patient History Medical History A-fib (Chronic) Anxiety (Chronic) COPD (chronic obstructive pulmonary disease) (Chronic) Dyslipidemia (Chronic) GERD (gastroesophageal reflux disease) (Chronic) HTN (hypertension) (Chronic) Sinusitis (Chronic) TIA (transient ischemic attack) (Chronic) Venous insufficiency (Chronic) Aortic aneurysm (Resolved) Surgical History Knee joint replacement status (Resolved) Family History Other Family history non-contributory Social History Preferred Language: Hebrew Communication Ability: Effective Visual Impairment: Limited Hearing Ability: Hard of Hearing Waste Water Operator Required: No Beliefs That Will Affect Care: None marital status: Current Living Situation: Alone Current Living Situation Comment: in apartment current occupational status: retired Feels Safe at Home: Yes Safety Concerns: Feels Safe At This Time Smoking Status: Former smoker Tobacco Type: cigarettes Do You Dip or Chew Tobacco: No Second Hand Exposure: No Tobacco Cessation Education Requested by Patient: No Hx Alcohol Use: Yes Alcohol type: beer and wine Hx Substance Use: No Physical Exam Physical Exam: General: no acute distress and stated age comfortable, enjoying his evening meal Eyes: conjunctiva are pink and non-injected, sclera clear Neck: normal jugular venous pulse, no hepatojugular reflux Chest: normal shape and normal respiratory effort Lungs: clear to auscultation and percussion Cardiac Exam: - regular heart sounds, no murmurs, rubs, or gallops, no jugular venous distention Abdomen: abdomen soft, non-tender, no abnormal masses and no hepatosplenomegaly Extremities: 2+ LE edema, scrotal edema Neuro:awake, coversant, follows commands, no focal motor deficits Results & Data Vital Signs (Past 12 Hours) Vital Signs Temp Pulse Pulse Resp BP Pulse Ox 07/09/18 16:00 54 L 07/09/18 15:52 36.8 C 53 L 17 139/54 L 95 07/09/18 12:10 54 L 07/09/18 11:44 36.9 C 48 L 20 137/71 97 07/09/18 07:52 36.7 C 55 L 20 157/61 H 94 07/09/18 07:25 46 L Laboratory Results Cardiac Enzymes 07/08/18 07/09/18 07/09/18 Range/Units 19:59 01:20 06:50 AST 24 (15-37) U/L CK-MB (CK-2) 3.1 (0.5-3.6) ng/ml Troponin I < 0.015 < 0.015 < 0.015 (0-0.045) ng/ml 07/09/18 Range/Units 12:59 AST (15-37) U/L CK-MB (CK-2) (0.5-3.6) ng/ml Troponin I 0.015 (0-0.045) ng/ml Coagulation 07/08/18 Range/Units 19:59 PT 28.9 H (9.0-12.0) Seconds CBC 07/08/18 07/09/18 Range/Units 19:59 06:50 WBC 8.01 6.06 (4.8-10.8) K/uL RBC 3.98 L 3.81 L (4.7-6.1) M/uL Hgb 12.1 L 11.3 L (14.0-18.0) g/dL Hct 34.9 L 33.8 L (42-52) % Plt Count 152 125 L (130-400) K/uL Neut # (Auto) 6.13 4.38 (1.4-6.5) K/uL Lymph # (Auto) 0.84 L 0.73 L (1.2-3.4) K/uL Greene # (Auto) 0.88 H 0.77 H (0.11-0.59) K/uL Eos # (Auto) 0.12 0.15 (0-0.5) K/uL Baso # (Auto) 0.01 0.01 (0-0.2) K/uL Comprehensive Metabolic Panel 07/08/18 07/09/18 Range/Units 19:59 06:50 Sodium 135 L 136 (136-145) mmol/L Potassium 4.9 4.3 (3.5-5.1) mmol/L Chloride 104 105 (98-107) mmol/L Carbon Dioxide 27 26 (21-32) mmol/L BUN 33 H 30 H (7-18) mg/dl Creatinine 1.61 H 1.55 H (0.6-1.4) mg/dl Glucose 92 88 (70-99) mg/dl Calcium 7.8 L 7.7 L (8.5-10.1) mg/dl AST 24 (15-37) U/L ALT 23 (12-78) U/L Alkaline Phosphatase 115 (45-117) U/L Total Protein 6.3 L (6.4-8.2) gm/dl Albumin 2.7 L (3.4-5.0) gm/dl Intake and Output 07/09/18 07/09/18 07/09/18 06:59 14:59 22:59 Intake Total 120 / 120 355 / 470 115 / 470 Output Total 1100 / 1100 1400 / 1400 Balance -980 / -980 -1045 / -930 115 / -930 Intake: IV 120 / 120 115 / 230 115 / 230 Zosyn 3.375 gm In D5 100 ml @ 115 / 230 115 / 230 28.75 mls/hr IV Q8H IRAM Rx#: [id number] ZOSYN 4.5 gm In 120 ml @ 240 120 / 120 mls/hr IV NOW ONE Rx#:[id number] Oral 240 / 240 Output: Urine Amount (Catheter) 1100 / 1100 1400 / 1400 Byrd/Indwelling 1100 / 1100 1400 / 1400 Other: Weight 90.5 kg Diagnostic Findings EKG performed 07/08/2018 at 1920 hrs. reveals baseline artifact, probable sinus rhythm as it does appear that there are P waves noted of the junctional rhythm also possibility. Ventricular conduction delay, possible age-indeterminate septal infarct pattern. The age-indeterminate septal/anterior infarct pattern is unchanged compared to his prior EKG of [facility] dated 01/08/2017. Summary of transthoracic echocardiogram performed earlier today and reviewed independently: Mild left ventricular hypertrophy is present with normal left ventricular wall motion normal LVEF in the range of 55 to 60%. The right ventricular chamber size is normal, however mild to moderate global right ventricular hypokinesis is noted. Mild aortic valve sclerosis without stenosis is noted. Mild tricuspid regurgitation is present without significant pulmonary hypertension. Grade 2 diastolic dysfunction is noted. Summary of radiology report, CT the pelvis performed 07/08/2018: Moderate body wall edema with large amount of subcutaneous edema about the scrotum in addition to bilateral hydroceles. Bilateral inguinal chain adenopathy, likely reactive, follow-up recommended
--- NOTE | 2018-07-09 19:05 | Hospitalist Progress Note ---
Date of Service July 09, 2018 Assessment & Plan (1) Acute right heart failure: Presented with lower extremity worsening of edema bilateral, scrotal scrotal swelling, increased weight gain Echocardiogram shows reduced right ventricular ejection fraction, normal LV function, grade 2 diastolic dysfunction Patient started with IV Lasix 40 mg twice daily, Byrd catheter placed Patient diuresed adequately, reports of improvement of lower extremity edema Cardiology consulted, appreciate input Present on Admission?: Yes (2) CHF with left ventricular diastolic dysfunction, NYHA class 2: History of chronic CHF with grade 2 diastolic dysfunction, presented with acute exacerbation of combined right heart and diastolic heart failure Continue diuresis as outlined above, Cardiology following (3) Venous stasis ulcers of both lower extremities: Chronic bilateral venous stasis ulcer, secondary to chronic right heart failure-present on admission Follows with wound clinic Empiric antibiotic with p.o. doxycycline Wound care consulted Norvasc discontinued-to limit lower extremity venous congestion Present on Admission?: Yes (4) Anticoagulated on warfarin: Due to history of paroxysmal A. fib, INR therapeutic (5) Paroxysmal A-fib: Continue beta-carrington, amiodarone, on chronic anticoagulation with Coumadin (6) Cerebrovascular disease: Continue aspirin/statin, no residual neurological deficit (7) BPH (benign prostatic hyperplasia): History of BPH, on Flomax, reports a very weak urinary stream, dribbling, Byrd catheter placed for accurate measurement of intake and output patient is given IV Lasix, May benefit with urology evaluation, if continues to have urinary symptoms after Byrd is discontinued UA grossly positive Ordered for urine culture Present on Admission?: Yes (8) Acute renal failure superimposed on stage 3 chronic kidney disease: Baseline creatinine 1.1 on 07/05/2018 Creatinine elevated to 1.61.5 today Acute renal failure possibly secondary to decompensated heart failure Patient is continued with IV diuresis, leading mild improvement of creatinine, secondary to increase renal perfusion Continue to monitor basic metabolic panel -ordered daily Continue Lasix 40 mg IV twice dailycardiology following Will hold lisinopril 40 mg daily Avoid NSAIDs Avoid contrast studies CODE STATUS: Full code DVT prophylaxis: On Coumadin Disposition: PT OT evaluation requested Lives at home, uses [employer] Social service consulted for discharge planning Present on Admission?: Yes Subjective Patient reports improvement of lower extremity swelling, scrotal edema Denies of any cough, no shortness of breath or orthopnea, no fever or chills Requesting to have as scheduled dose of Tessalon Perles, as he always takes it that way at home Physical Exam Constitutional: WD/WN, vitals as above no acute distress Eyes: PERRL, conjunctivae normal, anicteric sclerae ENMT: external ear and nose normal, oropharynx normal Neck: trachea midline, no thyromegaly Respiratory: normal respiratory effort; no respiratory distress Auscultation: + crackles; no wheezes Cardiovascular: Extremities: + edema (+2 bilateral pitting) Gastrointestinal (Abdomen): Inspection/Auscultation: + abdomen distended and normal bowel sounds Percussion/Palpation: abdomen soft; abdomen nontender Musculoskeletal: Bilateral lateral lower extremity pitting edema with chronic venous stasis ulcer, extensive scrotal swelling, Skin: bilateral chronic venous stasis ulcer, present on admission, extensive scrotal swelling, fungal infection noted around the groin area present on admission Neurologic: PERRL, EOMI, accommodation nl, no face palsy, no dysarthria Psychiatric: A+Ox3, euthymic affect Results & Data Vital Signs (Past 12 Hours) Vital Signs Temp Pulse Pulse Resp BP Pulse Ox 07/09/18 16:00 54 L 07/09/18 15:52 36.8 C 53 L 17 139/54 L 95 07/09/18 12:10 54 L 07/09/18 11:44 36.9 C 48 L 20 137/71 97 07/09/18 07:52 36.7 C 55 L 20 157/61 H 94 07/09/18 07:25 46 L (1) BPH (benign prostatic hyperplasia) Lower urinary tract symptom presence: symptoms present Lower urinary tract symptom detail: weak urinary stream Qualified Code(s): N40.1 - Benign prostatic hyperplasia with lower urinary tract symptoms; R39.12 - Poor urinary stream (2) Acute renal failure superimposed on stage 3 chronic kidney disease Acute renal failure type: unspecified Qualified Code(s): N17.9 - Acute kidney failure, unspecified; N18.3 - Chronic kidney disease, stage 3 (moderate)
--- NOTE | 2018-07-09 19:18 | Emergency Department Note ---
Entered by Matthew Cabral acting as a scribe for Bony Wells MD History of Present Illness General Chief complaint: Swelling/Edema to Extremity Stated complaint: SWELLING FROM NECK DOWN Time Seen by Provider: 07/08/18 18:56 Source: patient History of Present Illness Provider complaint: Swelling Onset (ago): week(s) 1 Location: lower extremity, left and right Pain Consistency: + constant Maximum Pain Intensity: 5 Quality: + other (Swelling) Exacerbated By: + none Associated symptoms: + denies other symptoms The patient is a 78 year old male who presents to the Emergency Room with complaints of worsening lower extremity swelling that started about a week ago. The patient is on 40mg of Lasix but he still has gained 20 pounds in the past 2 months. The swelling has also spread to his groin area and genitalia making it difficult for him to urinate. He notes that he was getting seen at the wound clinic because he lost most of the skin from his legs. For this, he was put in Doxycycline. Shortly after his skin started to grow back the swelling started. The patient also takes Coumadin. Home Medications Home Medications Medication Instructions Recorded Confirmed Type amiodarone 200 mg tablet 200 mg PO QAM 05/22/18 07/08/18 History amlodipine 5 mg tablet 5 mg PO QAM 05/22/18 07/08/18 History atorvastatin 20 mg tablet 20 mg PO QPM 05/22/18 07/08/18 History docusate sodium 100 mg capsule 100 mg PO QPM 05/22/18 07/08/18 History famotidine 20 mg tablet 20 mg PO AMPM tab 05/22/18 07/08/18 History fluticasone propionate 100 2 inha INH AMPM ea 05/22/18 07/08/18 History mcg/actuation blister powder for inhalation lisinopril 40 mg tablet 40 mg PO QAM 05/22/18 07/08/18 History lorazepam 0.5 mg tablet 0.5 mg PO QAM tab 05/22/18 07/08/18 History magnesium 400 mg (as magnesium 400 mg PO BID 05/22/18 07/08/18 History oxide) tablet metoprolol succinate ER 50 mg 50 mg PO DAILY 05/22/18 07/08/18 History tablet,extended release 24 hr polyethylene glycol 3350 17 17 gm PO DAILY 05/22/18 07/08/18 History gram/dose oral powder potassium chloride ER 20 mEq 20 meq PO .DAILY AT NOON 05/22/18 07/08/18 History tablet,extended release(part/cryst) tamsulosin 0.4 mg capsule 0.4 mg PO QPM cap 05/22/18 07/08/18 History warfarin 5 mg tablet 5 mg PO QPM tab 05/22/18 07/08/18 History benzonatate 100 mg PO TID PRN 07/08/18 07/08/18 History furosemide 40 mg PO QAM 07/08/18 07/08/18 History nystatin [Nystop] 1 applic TOPICAL TID PRN 07/08/18 07/08/18 History Allergies Allergy/AdvReac Type Severity Reaction Status Date / Time guaifenesin AdvReac Unknown GETS Verified 07/08/18 23:52 REALLY SICK FROM MUCINEX Past Med/Surg History Medical History A-fib (Chronic) Anxiety (Chronic) COPD (chronic obstructive pulmonary disease) (Chronic) Dyslipidemia (Chronic) GERD (gastroesophageal reflux disease) (Chronic) HTN (hypertension) (Chronic) Sinusitis (Chronic) TIA (transient ischemic attack) (Chronic) Venous insufficiency (Chronic) Aortic aneurysm (Resolved) Surgical History Knee joint replacement status (Resolved) Family History Other Family history non-contributory Social History Preferred Language: Azeri Communication Ability: Effective Visual Impairment: Limited Hearing Ability: Hard of Hearing Sample Puller Required: No Beliefs That Will Affect Care: None marital status: Current Living Situation: Alone Current Living Situation Comment: in apartment current occupational status: retired Feels Safe at Home: Yes Safety Concerns: Feels Safe At This Time Smoking Status: Former smoker Tobacco Type: cigarettes Do You Dip or Chew Tobacco: No Second Hand Exposure: No Tobacco Cessation Education Requested by Patient: No Hx Alcohol Use: Yes Alcohol type: beer and wine Hx Substance Use: No Review of Systems See HPI for pertinent positives & negatives. and A total of 10 systems reviewed and were otherwise negative Physical Exam Vital Signs Vital Signs - 24 hr 07/08/18 20:12 05/06/19 21:10 07/08/18 23:03 Temperature Temperature Source Pulse Rate Pulse Rate [Right Finger] 53 L 53 L 77 Pulse Rhythm [Right Finger] Regular Pulse Strength [Right Finger] Normal Respiratory Rate 18 18 18 Respiratory Effort / Characteristics Non-Labored Spontaneous Respiratory Depth Normal Respiratory Pattern Regular Blood Pressure Blood Pressure [Left Arm] 161/55 H 160/52 H 96/70 L Blood Pressure [Right Arm] Blood Pressure Mean [Left Arm] 90 88 78 Blood Pressure Mean [Right Arm] Blood Pressure Position [Right Arm] Pulse Oximetry 95 94 94 Oxygen Delivery Method Room Air Room Air Room Air 07/09/18 00:08 07/09/18 00:56 07/09/18 02:30 Temperature 36.4 C L Temperature Source Oral Pulse Rate 54 L 54 L Pulse Rate [Right Finger] 56 L Pulse Rhythm [Right Finger] Pulse Strength [Right Finger] Respiratory Rate 20 19 Respiratory Effort / Characteristics Respiratory Depth Respiratory Pattern Blood Pressure 159/55 H Blood Pressure [Left Arm] Blood Pressure [Right Arm] 142/57 H Blood Pressure Mean [Left Arm] Blood Pressure Mean [Right Arm] 85 Blood Pressure Position [Right Arm] Pulse Oximetry 94 91 Oxygen Delivery Method Room Air 07/09/18 07:25 07/09/18 07:52 07/09/18 11:44 Temperature 36.7 C 36.9 C Temperature Source Oral Oral Pulse Rate 46 L Pulse Rate [Right Finger] 55 L 48 L Pulse Rhythm [Right Finger] Pulse Strength [Right Finger] Respiratory Rate 20 20 Respiratory Effort / Characteristics Respiratory Depth Respiratory Pattern Blood Pressure Blood Pressure [Left Arm] Blood Pressure [Right Arm] 157/61 H 137/71 Blood Pressure Mean [Left Arm] Blood Pressure Mean [Right Arm] 93 93 Blood Pressure Position [Right Arm] Pulse Oximetry 94 97 Oxygen Delivery Method 07/09/18 12:10 07/09/18 15:52 07/09/18 16:00 Temperature 36.8 C Temperature Source Oral Pulse Rate 54 L Pulse Rate [Right Finger] 54 L 53 L Pulse Rhythm [Right Finger] Pulse Strength [Right Finger] Normal Respiratory Rate 17 Respiratory Effort / Characteristics Respiratory Depth Respiratory Pattern Blood Pressure Blood Pressure [Left Arm] Blood Pressure [Right Arm] 139/54 L Blood Pressure Mean [Left Arm] Blood Pressure Mean [Right Arm] 82 Blood Pressure Position [Right Arm] Lying Pulse Oximetry 95 Oxygen Delivery Method Room Air GENERAL: Awake, alert, well-appearing, in no distress HENT: Normocephalic, atraumatic. Oropharynx unremarkable. EYES: Normal conjunctiva. Sclera non-icteric. NECK: Supple. No nuchal rigidity. FROM. No masses. RESPIRATORY: Clear to auscultation. No wheezes. No rales. Normal respiratory effort. CARDIAC: Normal rate. Normal rhythm. No murmurs. No rubs. Extremities warm and well perfused. Pulses equal. No JVD. GI: Soft, non-distended. No tenderness to palpation. No rebound or guarding. No masses. RECTAL: Deferred. : Reddened and raw area surrounding scrotum and inguinal groin area. MUSCULOSKELETAL: Atraumatic. Chest examination reveals no tenderness. The back is symmetrical on inspection without obvious abnormality. There is no CVA tenderness to palpation. No joint edema. LOWER EXTREMITIES: Calves are equal size bilaterally and non-tender. No edema. No discoloration. NEURO: Normal sensorium. No sensory or motor deficits noted. Course 1857: The patient was evaluated in room A12A, and a complete history and physical examination were performed. 2144: I spoke to Dr. Omari Rutledge about the patient case and he is going to accept him for further evaluation. Consultations Consultation #1: I spoke to Dr. Omari Rutledge about the patient case and he is going to accept him for further evaluation. Time: 21:45 Administered Medications Amiodarone HCl (Cordarone) 200 mg PO QAM [facility] Stop: 08/08/18 08:59 Last Admin: 07/09/18 12:10 Dose: 200 mg Documented by: [id number] Clotrimazole (Lotrimin 1%) 1 appln EXT BID [facility] Stop: 08/08/18 08:59 Last Admin: 07/09/18 08:54 Dose: 1 appln Documented by: [id number] Doxycycline Hyclate (Vibramycin) 100 mg PO BID [facility] Stop: 07/19/18 08:59 Last Admin: 07/09/18 08:53 Dose: 100 mg Documented by: [id number] Famotidine (Pepcid) 20 mg PO BID [facility] Stop: 08/08/18 10:29 Last Admin: 07/09/18 11:57 Dose: 20 mg Documented by: [id number] Fluticasone Propionate (Flonase) 1 sprays NA BID [facility] Stop: 08/08/18 11:59 Last Admin: 07/09/18 11:57 Dose: 1 sprays Documented by: [id number] Furosemide 40 mg/ Syringe 4 mls @ 4 mls/min IV BID IRAM Stop: 08/08/18 08:59 Last Admin: 07/09/18 08:53 Dose: 4 mls/min Documented by: [id number] Magnesium Oxide (Mag-Ox) 400 mg PO 1200,1800 [facility] Stop: 08/08/18 11:59 Last Admin: 07/09/18 17:09 Dose: 400 mg Documented by: [id number] Admin: 07/09/18 11:57 Dose: 400 mg Documented by: [id number] Metoprolol Succinate (Toprol Xl) 50 mg PO DAILY [facility] Stop: 08/08/18 10:44 Last Admin: 07/09/18 12:00 Dose: 50 mg Documented by: [id number] Polyethylene Glycol (Miralax Powder Packet) 17 gm PO DAILY [facility] Stop: 08/08/18 10:44 Last Admin: 07/09/18 11:55 Dose: 17 gm Documented by: [id number] Potassium Chloride (Klor-Con M20) 20 meq PO DAILY@1200 [facility] Stop: 08/08/18 11:59 Last Admin: 07/09/18 11:57 Dose: 20 meq Documented by: [id number] Warfarin Sodium (Coumadin) 5 mg PO DAILY@1600 [facility] Stop: 08/08/18 15:59 Last Admin: 07/09/18 17:09 Dose: 5 mg Documented by: [id number] Discontinued Medications Amlodipine Besylate (Norvasc) 5 mg PO QAM [facility] Stop: 08/08/18 10:29 Last Admin: 07/09/18 11:55 Dose: 5 mg Documented by: [id number] Fluconazole (Diflucan) 200 mg PO ONE ONE Stop: 07/09/18 01:31 Last Admin: 07/09/18 01:57 Dose: 200 mg Documented by: [id number] Furosemide (Lasix) 40 mg IV NOW STA Stop: 07/08/18 21:31 Last Admin: 07/08/18 22:32 Dose: 40 mg Documented by: [id number] Piperacillin Sod/Tazobactam Sod (Zosyn) 4.5 gm in 120 mls @ 240 mls/hr IV NOW ONE Stop: 07/08/18 21:59 Last Infusion: 07/09/18 01:16 Dose: 0 mls/hr Documented by: [id number] Admin: 07/08/18 22:32 Dose: 240 mls/hr Documented by: [id number] Daptomycin 525 mg/ Syringe 10.5 mls @ 5.25 mls/min IV NOW ONE; Protocol Stop: 07/08/18 21:31 Last Admin: 07/08/18 23:02 Dose: 5.25 mls/min Documented by: [id number] Piperacillin Sod/Tazobactam (Sod 3.375 gm/ Dextrose) 115 mls @ 28.75 mls/hr IV Q8H IRAM; Protocol Stop: 07/19/18 03:59 Last Infusion: 07/09/18 15:55 Dose: 0 mls/hr Documented by: [id number] Admin: 07/09/18 11:55 Dose: 28.8 mls/hr Documented by: [id number] Infusion: 07/09/18 08:50 Dose: 0 mls/hr Documented by: [id number] Admin: 07/09/18 04:49 Dose: 28.8 mls/hr Documented by: [id number] Ioversol (Optiray 320 100ml) 95 ml IV ONCE PRN PRN Reason: Interaction Checking Stop: 07/12/18 20:52 Last Admin: 07/08/18 20:54 Dose: 95 ml Documented by: [id number] Nystatin (Mycostatin) 1 appln EXT NOW STA Stop: 07/08/18 19:08 Last Admin: 07/08/18 20:23 Dose: 1 appln Documented by: [id number] Medical Decision Making Differential Diagnosis Differential Diagnosis includes: DVT, CHF, Arterial Occlusion, Infectious, Joint Effusion, Trauma, Lymphedema, Idiopathic, Trauma, amongst other pathologies entertained. Medical Records Attestation: I reviewed the patient's medical records. Home Medications Current Medication List: was personally reviewed by me Laboratory Data Attestation: I reviewed the patient's lab results. Result diagrams: 07/09/18 06:50 07/09/18 06:50 Lab Results 07/08/18 07/08/18 07/08/18 Range/Units 19:59 19:59 19:59 WBC 8.01 (4.8-10.8) K/uL RBC 3.98 L (4.7-6.1) M/uL Hgb 12.1 L (14.0-18.0) g/dL Hct 34.9 L (42-52) % MCV 87.7 (80-100) fL MCH 30.4 (25-34) pg MCHC 34.7 (32-36) g/dL RDW Std Deviation 47.1 H (36.4-46.3) fL RDW Coeff of Trinh 14.5 (11.5-14.5) % Plt Count 152 (130-400) K/uL MPV 10.7 H (7.4-10.4) fL Immature Gran % (Auto) 0.4 % Neut % (Auto) 76.5 % Lymph % (Auto) 10.5 % Da[place]hin % (Auto) 11.0 % Eos % (Auto) 1.5 % Baso % (Auto) 0.1 % Immature Gran # (Auto) 0.03 H (0.00-0.02) K/uL Neut # (Auto) 6.13 (1.4-6.5) K/uL Lymph # (Auto) 0.84 L (1.2-3.4) K/uL [place]hin # (Auto) 0.88 H (0.11-0.59) K/uL Eos # (Auto) 0.12 (0-0.5) K/uL Baso # (Auto) 0.01 (0-0.2) K/uL PT 28.9 H (9.0-12.0) Seconds INR 3.1 H (0.9-1.1) Sodium 135 L (136-145) mmol/L Potassium 4.9 (3.5-5.1) mmol/L Chloride 104 (98-107) mmol/L Carbon Dioxide 27 (21-32) mmol/L Anion Gap 4.0 (3-11) BUN 33 H (7-18) mg/dl Creatinine 1.61 H (0.6-1.4) mg/dl Est Cr Clr Drug Dosing Not Reportable Est GFR ( Amer) 46.8 Est GFR (Non-Af Amer) 40.4 BUN/Creatinine Ratio 20.3 H (10-20) Glucose 92 (70-99) mg/dl Calcium 7.8 L (8.5-10.1) mg/dl Magnesium (1.8-2.4) mg/dl Total Bilirubin 0.6 (0.2-1) mg/dl AST 24 (15-37) U/L ALT 23 (12-78) U/L Alkaline Phosphatase 115 (45-117) U/L Total Creatine Kinase 103 (39-308) U/L CK-MB (CK-2) 3.1 (0.5-3.6) ng/ml CK/CKMB % Calc 3.0 (0-3.0) Troponin I < 0.015 (0-0.045) ng/ml NT-Pro-B Natriuret Pep 5692 H (0-1800) pg/ml Total Protein 6.3 L (6.4-8.2) gm/dl Albumin 2.7 L (3.4-5.0) gm/dl Globulin 3.6 (2.5-4.0) gm/dl Albumin/Globulin Ratio 0.8 L (0.9-2) TSH 1.770 (0.300-4.500) uIu/ml Urine Color Urine Appearance (Clear) Urine pH (4.5-7.5) Ur Specific Shirley (1.000-1.030) Urine Protein (Negative) Urine Glucose (UA) (Negative) Urine Ketones (Negative) Urine Blood (Negative) Urine Nitrite (Negative) Urine Bilirubin (Negative) Urine Urobilinogen (Negative) Ur Leukocyte Esterase (Negative) Urine WBC (Auto) (0-5) /hpf Urine RBC (Auto) (0-4) /hpf U Hyaline Cast (Auto) (0-5) /lpf U Epithel Cells (Auto) (0-5) /lpf Urine Bacteria (Auto) (Negative) Urine Yeast 07/08/18 07/09/18 07/09/18 Range/Units 20:00 01:20 06:50 WBC 6.06 (4.8-10.8) K/uL RBC 3.81 L (4.7-6.1) M/uL Hgb 11.3 L (14.0-18.0) g/dL Hct 33.8 L (42-52) % MCV 88.7 (80-100) fL MCH 29.7 (25-34) pg MCHC 33.4 (32-36) g/dL RDW Std Deviation 48.2 H (36.4-46.3) fL RDW Coeff of Trinh 14.7 H (11.5-14.5) % Plt Count 125 L (130-400) K/uL MPV 10.4 (7.4-10.4) fL Immature Gran % (Auto) 0.3 % Neut % (Auto) 72.3 % Lymph % (Auto) 12.0 % [place]hin % (Auto) 12.7 % Eos % (Auto) 2.5 % Baso % (Auto) 0.2 % Immature Gran # (Auto) 0.02 (0.00-0.02) K/uL Neut # (Auto) 4.38 (1.4-6.5) K/uL Lymph # (Auto) 0.73 L (1.2-3.4) K/uL [place]hin # (Auto) 0.77 H (0.11-0.59) K/uL Eos # (Auto) 0.15 (0-0.5) K/uL Baso # (Auto) 0.01 (0-0.2) K/uL PT (9.0-12.0) Seconds INR (0.9-1.1) Sodium (136-145) mmol/L Potassium (3.5-5.1) mmol/L Chloride (98-107) mmol/L Carbon Dioxide (21-32) mmol/L Anion Gap (3-11) BUN (7-18) mg/dl Creatinine (0.6-1.4) mg/dl Est Cr Clr Drug Dosing Est GFR ( Amer) Est GFR (Non-Af Amer) BUN/Creatinine Ratio (10-20) Glucose (70-99) mg/dl Calcium (8.5-10.1) mg/dl Magnesium (1.8-2.4) mg/dl Total Bilirubin (0.2-1) mg/dl AST (15-37) U/L ALT (12-78) U/L Alkaline Phosphatase (45-117) U/L Total Creatine Kinase (39-308) U/L CK-MB (CK-2) (0.5-3.6) ng/ml CK/CKMB % Calc (0-3.0) Troponin I < 0.015 (0-0.045) ng/ml NT-Pro-B Natriuret Pep (0-1800) pg/ml Total Protein (6.4-8.2) gm/dl Albumin (3.4-5.0) gm/dl Globulin (2.5-4.0) gm/dl Albumin/Globulin Ratio (0.9-2) TSH (0.300-4.500) uIu/ml Urine Color Yellow Urine Appearance Cloudy A (Clear) Urine pH 5.0 (4.5-7.5) Ur Specific Shirley 1.020 (1.000-1.030) Urine Protein 2+ H (Negative) Urine Glucose (UA) Negative (Negative) Urine Ketones Negative (Negative) Urine Blood 3+ H (Negative) Urine Nitrite Negative (Negative) Urine Bilirubin Negative (Negative) Urine Urobilinogen Negative (Negative) Ur Leukocyte Esterase Negative (Negative) Urine WBC (Auto) 1-5 (0-5) /hpf Urine RBC (Auto) >30 H (0-4) /hpf U Hyaline Cast (Auto) 5-10 H (0-5) /lpf U Epithel Cells (Auto) 10-20 H (0-5) /lpf Urine Bacteria (Auto) Negative (Negative) Urine Yeast Not Reportable 07/09/18 07/09/18 Range/Units 06:50 12:59 WBC (4.8-10.8) K/uL RBC (4.7-6.1) M/uL Hgb (14.0-18.0) g/dL Hct (42-52) % MCV (80-100) fL MCH (25-34) pg MCHC (32-36) g/dL RDW Std Deviation (36.4-46.3) fL RDW Coeff of Trinh (11.5-14.5) % Plt Count (130-400) K/uL MPV (7.4-10.4) fL Immature Gran % (Auto) % Neut % (Auto) % Lymph % (Auto) % [place] % (Auto) % Eos % (Auto) % Baso % (Auto) % Immature Gran # (Auto) (0.00-0.02) K/uL Neut # (Auto) (1.4-6.5) K/uL Lymph # (Auto) (1.2-3.4) K/uL [place] # (Auto) (0.11-0.59) K/uL Eos # (Auto) (0-0.5) K/uL Baso # (Auto) (0-0.2) K/uL PT (9.0-12.0) Seconds INR (0.9-1.1) Sodium 136 (136-145) mmol/L Potassium 4.3 (3.5-5.1) mmol/L Chloride 105 (98-107) mmol/L Carbon Dioxide 26 (21-32) mmol/L Anion Gap 5.0 (3-11) BUN 30 H (7-18) mg/dl Creatinine 1.55 H (0.6-1.4) mg/dl Est Cr Clr Drug Dosing 45.0 Est GFR ( Amer) 49.0 Est GFR (Non-Af Amer) 42.3 BUN/Creatinine Ratio 19.6 (10-20) Glucose 88 (70-99) mg/dl Calcium 7.7 L (8.5-10.1) mg/dl Magnesium 2.3 (1.8-2.4) mg/dl Total Bilirubin (0.2-1) mg/dl AST (15-37) U/L ALT (12-78) U/L Alkaline Phosphatase (45-117) U/L Total Creatine Kinase (39-308) U/L CK-MB (CK-2) (0.5-3.6) ng/ml CK/CKMB % Calc (0-3.0) Troponin I < 0.015 0.015 (0-0.045) ng/ml NT-Pro-B Natriuret Pep (0-1800) pg/ml Total Protein (6.4-8.2) gm/dl Albumin (3.4-5.0) gm/dl Globulin (2.5-4.0) gm/dl Albumin/Globulin Ratio (0.9-2) TSH (0.300-4.500) uIu/ml Urine Color Urine Appearance (Clear) Urine pH (4.5-7.5) Ur Specific Shirley (1.000-1.030) Urine Protein (Negative) Urine Glucose (UA) (Negative) Urine Ketones (Negative) Urine Blood (Negative) Urine Nitrite (Negative) Urine Bilirubin (Negative) Urine Urobilinogen (Negative) Ur Leukocyte Esterase (Negative) Urine WBC (Auto) (0-5) /hpf Urine RBC (Auto) (0-4) /hpf U Hyaline Cast (Auto) (0-5) /lpf U Epithel Cells (Auto) (0-5) /lpf Urine Bacteria (Auto) (Negative) Urine Yeast Imaging Data Radiologist's Impression: Radiology results as stated below per my review and the radiologist's interpretation: XR chest 1V portable HISTORY: 78 years-old Male weakness acute weakness COMPARISON: Chest radiograph 04/15/2017 TECHNIQUE: Portable AP view the chest FINDINGS: Cardiac silhouette is enlarged, unchanged. Prior median sternotomy. Calcification the thoracic aortic arch. Pulmonary vascular congestion. No pneumothorax, pleural effusion or lobar airspace consolidation. Asymmetric inter stitial opacities of the left lung. Degenerative changes of the shoulders and spine. IMPRESSION: 1. Cardiomegaly with pulmonary vascular congestion. 2. Mild asymmetric interstitial opacities throughout the left lung may reflect developing pulmonary edema or nonspecific pneumonitis. Correlate clinically. The above report was generated using voice recognition software. It may contain grammatical, syntax or spelling errors. Electronically signed by: Bob Hernandez M.D. 07/08/2018 8:[address] pelvis w/IV con only HISTORY: 78 years-old Male celulitis to scrotal area acute pain and swelling of the scrotum COMPARISON: CT abdomen and pelvis 05/07/2016 TECHNIQUE: Multiple axial CT images of the pelvis were obtained following the intravenous administration of 93 mL Optiray 320 IV contrast. A dose lowering technique was used consistent with the principals of SHIRLENE. FINDINGS: Imaged kidneys are unremarkable. Decompressed or bladder with wall thickening and Byrd catheter. Prominent prostate with associated central calcifications. Colonic diverticulosis without acute diverticulitis. Nonvisualization of the appendix. No ascites or mesenteric inflammation. There is moderate generalized body wall edema. Extensive calcification of the aorta and iliac arteries. Enlarged bilateral inguinal chain lymph nodes measure up to 2.7 x 1.5 cm on the right and 1.9 x 1.1 cm on the left. There is extensive subcutaneous edema about the scrotum and base of the.. No deep tissue air identified. Bilateral hydroceles are also noted. No drainable fluid collection. Degenerative changes of the spine, pelvis and hips. No acute fracture identified. IMPRESSION: 1. Moderate body wall edema with large amount of subcutaneous edema about the scrotum is noted in addition to to bilateral hydroceles. No deep tissue air identified. 2. No drainable fluid collection. 3. Bilateral inguinal chain adenopathy, likely reactive. Follow-up recommended. 4. No acute intrapelvic abnormality identified. The above report was generated using voice recognition software. It may contain grammatical, syntax or spelling errors. Electronically signed by: Bob Hernandez M.D. 07/08/2018 9:13 PM ECG Data Attestation: I personally reviewed and interpreted this ECG as follows: Indication: other (Swelling) Rate (beats per minute): 52 Rhythm: junctional Findings: + other (Old septal rhythm ); no ST depression and no ST elevation Blood Pressure Blood Pressure Findings: Elevated blood pressure Blood Pressure Disposition: further management by hospitalist MDM Narrative This is a 78-year-old male who presents emergency department complaining of cell ulitis to his scrotum and bilateral extremities. I suspect that the cellulitis is actually caused by moisture and third spacing. For this reason nystatin powder was applied. Patient does have an elevation in his white blood cell count therefore he was started on antibiotics. Byrd catheter was placed as I suspect that the patient is not keeping himself dry and this is contributing to his issues. Because of the cellulitis in the scrotum area he was sent for CAT scan of the pelvis. Does not show any gas and I do not feel he has forniers gangrene for cellulitis. Because of the elevation in the white blood cell count congestive heart failure as well as the extensive cellulitis I did discuss the case with the hospitalist service who agreed to admit the patient. Impression & Plan CHF exacerbation, Cellulitis Discharge Plan Visit Data *Final* Discharge Date/Time: 07/09/18 00:08 Chief Complaint: Swelling/Edema to Extremity Stated Complaint: SWELLING FROM NECK DOWN ED Provider: Bony Wells Discharge Problem: CHF exacerbation, Cellulitis Patient Disposition: Admitted As Inpatient Discharge Instructions Interventions: ED Discharge Assessment Last Done: 07/09/18 00:08 Discharge Problem: CHF exacerbation Qualifiers: Heart failure type: unspecified Qualified Code(s): I50.9 - Heart failure, unspecified Cellulitis Qualifiers: Site of cellulitis: extremity Site of cellulitis of extremity: lower extremity Laterality: unspecified laterality Qualified Code(s): L03.119 - Cellulitis of unspecified part of limb The scribe's documentation has been prepared under my direction and personally reviewed by me in its entirety. I confirm that the note above accurately reflects all work, treatment, procedures, and medical decision making performed by me.
[2018-07-09] MEDS: TAMSULOSIN HCL 0.4 MG CAP PO SCH (20:59)
[2018-07-09] MEDS: BENZONATATE 100 MG CAPSULE PO SCH (20:59)
[2018-07-09] MEDS ORDERED: FLUCONAZOLE SUSP 100 MG/10 ML UDP PO SCH (21:00)
[2018-07-09] MEDS: DOCUSATE SODIUM 100 MG CAP PO SCH (21:01)
[2018-07-09] MEDS: NYSTATIN POWDER 15GM BTL EXT PRN (21:11)
[2018-07-10 07:14] LABS: INR 2.9 (0.9-1.1); Prothrombin Time 27.2 Seconds (9.0-12.0)
[2018-07-10 07:31] LABS: BUN Creatinine Ratio 17.3 (10-20); Calcium 7.7 mg/dl (8.5-10.1); Creatinine Clr Calc Pharmacy 34.7 ml/min; Est GFR (African American) 35.8; Est GFR (Non-African American) 30.9
[2018-07-10] MEDS: FUROSEMIDE 40 MG in SYRINGE 0 ML IV SCH (07:51)
[2018-07-10] MEDS: METOPROLOL SUCC 50MG EXT REL TAB PO SCH (07:52)
[2018-07-10] MEDS: FAMOTIDINE 20 MG TAB PO SCH ×2 (07:52→21:09)
[2018-07-10] MEDS: DOXYCYCLINE HYCLATE 100 MG CAP PO SCH ×2 (07:53→21:07)
[2018-07-10] MEDS: BENZONATATE 100 MG CAPSULE PO SCH ×3 (07:55→21:08)
[2018-07-10] MEDS: FLUTICASONE PROPIONATE NA SPR 16 GM BTL SCH ×2 (07:56→21:08)
[2018-07-10] MEDS: CLOTRIMAZOLE 1% CR 15 GM TUBE EXT SCH ×2 (07:57→21:07)
[2018-07-10] MEDS: LORazepam 0.5 MG TAB PO SCH (07:58)
--- NOTE | 2018-07-10 08:41 | Hospitalist Progress Note ---
Date of Service July 10, 2018 Assessment & Plan (1) Acute right heart failure: Presented with lower extremity worsening of edema bilateral, scrotal scrotal swelling, increased weight gain. Clinically improving- reduction in LE edema, Scrotal swelling Negative balance -2.6 L Echocardiogram shows reduced RV EF, normal LV function, grade 2 diastolic dysfunction -On IV Lasix 40 mg BID- Hold off on further diuretic dosing per d/w cardiology -Foleys catheter in situ -Cardiology consulted, appreciate inputs (2) CHF with left ventricular diastolic dysfunction, NYHA class 2: History of chronic CHF with grade 2 diastolic dysfunction, Presented with acute exacerbation of combined right heart and diastolic heart failure -Continue diuresis as outlined above (3) Venous stasis ulcers of both lower extremities: Chronic bilateral venous stasis ulcer, secondary to chronic right heart failure-present on admission -Follows with wound clinic -Empiric antibiotic with p.o. doxycycline -Wound care consulted -Norvasc discontinued-to limit lower extremity venous congestion (4) Anticoagulated on warfarin: Due to history of paroxysmal A. fib, -INR therapeutic (5) Paroxysmal A-fib: -Bradycardic with HR in 50s -Continue beta-carrington, amiodarone with holding parameters -Chronic anticoagulation with coumadin (6) Cerebrovascular disease: -Continue aspirin/statin -No residual neurological deficit (7) BPH (benign prostatic hyperplasia): -Foleys present for accurate measurement -Urine cx- no sig growth (8) Acute renal failure superimposed on stage 3 chronic kidney disease: Baseline creatinine 1.1 on 07/05/2018 Creatinine up to 1.5 today -On Lasix 40 mg IV twice dailyHold off as creatinine elevated -Held lisinopril -Avoid NSAIDs & Contrast studies -Monitor trend CODE STATUS: Full code DVT prophylaxis: On Coumadin Disposition: PT / OT consulted Lives at home, uses walker Likely discharge in 1-2 days Discussed with cardiology Subjective Patient reports improvement in lower extremity swelling, scrotal edema. Denies of any cough, no shortness of breath or orthopnea, no fever or chills. Negative balance- 2.6 L urine output Physical Exam Constitutional: WD/WN, vitals as above Respiratory: Auscultation: + diminished lung sounds Cardiovascular: Rate/Rhythm: + bradycardic Extremities: + pedal edema and + edema (Bilateral, Improving) Genitourinary: Scrotal edema- Improving Foleys catheter in situ Results & Data Vital Signs (Past 12 Hours) Vital Signs Temp Pulse Resp BP BP Pulse Ox 07/10/18 08:02 36.9 C 47 L 20 150/51 H 95 07/10/18 07:51 54 L 144/53 H 07/10/18 03:46 37 C 54 L 18 143/54 H 94 07/09/18 23:32 37.0 C 53 L 18 135/55 L 131/38 L 93 (1) BPH (benign prostatic hyperplasia) Lower urinary tract symptom detail: weak urinary stream Lower urinary tract symptom presence: symptoms present Qualified Code(s): N40.1 - Benign prostatic hyperplasia with lower urinary tract symptoms; R39.12 - Poor urinary stream (2) Acute renal failure superimposed on stage 3 chronic kidney disease Acute renal failure type: unspecified Qualified Code(s): N17.9 - Acute kidney failure, unspecified; N18.3 - Chronic kidney disease, stage 3 (moderate)
[2018-07-10] MEDS: AMIODARONE 200 MG TAB PO SCH (08:48)
[2018-07-10] MEDS ORDERED: FUROSEMIDE 40 MG TAB PO SCH (09:00)
--- NOTE | 2018-07-10 11:09 | Cardiology Progress Note ---
Date of Service July 10, 2018 Assessment & Plan (1) Acute right heart failure: 2.6 L of urine output noted in Byrd catheter overnight last night. Significant interval improvement her extremity and scrotal edema. Baseline Creatinine of 1.1 increased to 2.01 this am. Patient received 40 mg of IV furosemide yesterday evening and again this morning. Old off on further diuretic dosing pending repeat creatinine tomorrow. Byrd catheter to remain in place for now. Potassium stable. Amlodipine on hold. Blood pressure well controlled. (2) Acute renal failure superimposed on stage 3 chronic kidney disease: As noted above. Holding lisinopril. Torsemide. Repeat creatinine tomorrow. Hold potassium supplement. Hold magnesium supplement given acute reduction in renal function. (3) Paroxysmal A-fib: Asymptomatic sinus bradycardia noted. Continue dose of metoprolol and amiodarone. INR 2.9. Continue Coumadin. Subjective Chief complaint: Follow-up lower extremity swelling, scrotal swelling Subjective: Patient is very pleased that his swelling has improved significantly last 24 hours. Telemetry SB and SR in range of 50 to 60 bpm. Physical Exam Constitutional: + ill appearing (Chronically ill-appearing without distress) Respiratory: Auscultation: + diminished lung sounds (Mildly decreased breath sounds at bases, no rales rhonchi or wheezing, adequate inspiratory effort. No respiratory distress.) Cardiovascular: Rate/Rhythm: + bradycardic Heart Sounds: no murmur Vessels: no JVD Extremities: + edema (Lower extremity edema significantly improved, chronic venous stasis changes noted.) Gastrointestinal (Abdomen): normal bowel sounds, soft, nontender, no hepatosplenomegaly Neurologic: moves all extremities; no focal motor deficits Conversant, follows commands Genitourinary: Byrd catheter in place draining marielena urine Results & Data Vital Signs (Past 12 Hours) Vital Signs Temp Pulse Resp BP BP Pulse Ox 07/10/18 08:48 58 L 128/50 L 07/10/18 08:02 36.9 C 47 L 20 150/51 H 95 07/10/18 07:51 54 L 144/53 H 07/10/18 03:46 37 C 54 L 18 143/54 H 94 07/09/18 23:32 37.0 C 53 L 18 135/55 L 131/38 L 93 Laboratory Results Cardiac Enzymes 07/09/18 Range/Units 12:59 Troponin I 0.015 (0-0.045) ng/ml Coagulation 07/10/18 Range/Units 06:52 PT 27.2 H (9.0-12.0) Seconds Comprehensive Metabolic Panel 07/10/18 07/10/18 Range/Units 06:52 07:57 Sodium 137 (136-145) mmol/L Potassium 4.3 (3.5-5.1) mmol/L Chloride 105 (98-107) mmol/L Carbon Dioxide 29 (21-32) mmol/L BUN 35 H (7-18) mg/dl Creatinine 2.01 H D (0.6-1.4) mg/dl Glucose 94 (70-99) mg/dl Calcium 7.7 L (8.5-10.1) mg/dl Intake and Output 07/09/18 07/10/18 07/10/18 22:59 06:59 14:59 Intake Total 415 / 870 100 / 870 Output Total 700 / 2601 501 / 2601 Balance -285 / -1731 -401 / -1731 Intake: IV 115 / 230 Zosyn 3.375 gm In D5 100 ml @ 115 / 230 28.75 mls/hr IV Q8H IRAM Rx#: [id number] Oral 300 / 640 100 / 640 Output: Urine Amount (Catheter) 700 / 2600 500 / 2600 Byrd/Indwelling 700 / 2600 500 / 2600 # Bowel Movements Diagnostic Findings EKG performed this a.m. he has ongoing baseline artifact, but the patient is clearly in sinus bradycardia at 49 bpm with first-degree AV block and incomplete left bundle branch block. (1) Acute renal failure superimposed on stage 3 chronic kidney disease Acute renal failure type: unspecified Qualified Code(s): N17.9 - Acute kidney failure, unspecified; N18.3 - Chronic kidney disease, stage 3 (moderate)
[2018-07-10] MEDS: POLYETHYLENE (MIRALAX) 17 GM PACK PO SCH (11:56)
[2018-07-10] MEDS: NYSTATIN POWDER 15GM BTL EXT PRN ×2 (14:00→21:17)
[2018-07-10] MEDS: WARFARIN SOD 5 MG TAB PO SCH (15:43)
[2018-07-10] MEDS: DOCUSATE SODIUM 100 MG CAP PO SCH (21:07)
[2018-07-10] MEDS: TAMSULOSIN HCL 0.4 MG CAP PO SCH (21:08)
[2018-07-11] MEDS: BENZONATATE 100 MG CAPSULE PO SCH ×3 (07:04→20:48)
[2018-07-11] MEDS: POLYETHYLENE (MIRALAX) 17 GM PACK PO SCH (07:05)
[2018-07-11 07:46] LABS: INR 2.7 (0.9-1.1); Prothrombin Time 25.8 Seconds (9.0-12.0)
[2018-07-11] MEDS: FLUTICASONE PROPIONATE NA SPR 16 GM BTL SCH ×2 (07:55→20:47)
[2018-07-11] MEDS: CLOTRIMAZOLE 1% CR 15 GM TUBE EXT SCH ×2 (07:57→20:48)
[2018-07-11] MEDS: METOPROLOL SUCC 50MG EXT REL TAB PO SCH (08:00)
[2018-07-11] MEDS: LORazepam 0.5 MG TAB PO SCH (08:01)
[2018-07-11] MEDS: DOXYCYCLINE HYCLATE 100 MG CAP PO SCH ×2 (08:01→20:51)
[2018-07-11] MEDS: FAMOTIDINE 20 MG TAB PO SCH ×2 (08:01→20:49)
[2018-07-11] MEDS: AMIODARONE 200 MG TAB PO SCH (08:24)
[2018-07-11 09:22] LABS: BUN Creatinine Ratio 20.4 (10-20); Calcium 7.8 mg/dl (8.5-10.1); Creatinine Clr Calc Pharmacy 40.6 ml/min; Est GFR (African American) 43.2; Est GFR (Non-African American) 37.3; Potassium 4.2 mmol/L (3.5-5.1)
[2018-07-11] MEDS ORDERED: FUROSEMIDE 40 MG in SYRINGE 0 ML IV ONE (10:15)
--- NOTE | 2018-07-11 10:27 | Hospitalist Progress Note ---
Date of Service July 11, 2018 Assessment & Plan (1) Acute right heart failure: Presented with lower extremity worsening of edema bilateral, scrotal scrotal swelling, increased weight gain. Clinically improving- reduction in LE edema, Scrotal swelling, but persistent swelling Negative balance -2.6 L, weight no much improvement Echocardiogram shows reduced RV EF-55-60%, normal LV function, grade 2 diastolic dysfunction -S/P IV Lasix 40 mg BID. Held dose yesterday evening due to creatinine going up. Will give a dose of IV lasix 40mg x 1 dose today -Byrd's catheter in situ -Cardiology on board. Appreciate inputs (2) CHF with left ventricular diastolic dysfunction, NYHA class 2: History of chronic CHF with grade 2 diastolic dysfunction, Presented with acute exacerbation of combined right heart and diastolic heart failure -Continue diuresis as outlined above (3) Acute renal failure superimposed on stage 3 chronic kidney disease: Baseline creatinine 1.1 on 07/05/2018 Creatinine up to 2 on 07/10, now trending down -Diuretics mx as above -Held lisinopril -Avoid NSAIDs & Contrast studies -Monitor trend (4) Venous stasis ulcers of both lower extremities: Chronic bilateral venous stasis ulcer, secondary to chronic right heart failure-present on admission -Follows with wound clinic -Empiric antibiotic with p.o. doxycycline- Day 05/07 -Wound care consulted- discharge instructions written -Norvasc discontinued-due to lower extremity venous congestion (5) Anticoagulated on warfarin: Due to history of paroxysmal Atrial fibrillation -INR therapeutic - 2.7 (6) Paroxysmal A-fib: Bradycardic with HR in 50s -On beta-carrington, amiodarone with holding parameters. On hold today due to HR in 40s -Chronic anticoagulation with coumadin -Discussed with cardiology (7) Cerebrovascular disease: -Continue aspirin/statin -No residual neurological deficit -Lipid panel done per patient's request as had been a year- Normal (8) BPH (benign prostatic hyperplasia): -Foleys present for accurate measurement -Urine cx- no sig growth CODE STATUS: Full code DVT prophylaxis: On Coumadin Disposition: PT / OT recommends home health PT Lives at home, uses walker Likely discharge in 1-2 days Discussed with cardiology Subjective Patient reports improvement in lower extremity swelling, scrotal edema, but persistent. Denies of any cough, no shortness of breath or orthopnea, no fever or chills. Negative balance- 2.6 L urine output. Not much change in his weight Physical Exam Physical Exam: Constitutional + ill appearing (Chronically ill-appearing without distress) Respiratory Auscultation: + diminished lung sounds (Mildly decreased breath sounds at bases, no rales rhonchi or wheezing, adequate inspiratory effort. No respiratory distress.) Cardiovascular Rate/Rhythm: + bradycardic Heart Sounds: no murmur Vessels: no JVD Extremities: + edema (Lower extremity edema significantly improved, chronic venous stasis changes noted.) Gastrointestinal (Abdomen) normal bowel sounds, soft, nontender, no hepatosplenomegaly Neurologic moves all extremities; no focal motor deficits Conversant, follows commands Genitourinary Byrd catheter in place draining marielena urine Results & Data Vital Signs (Past 12 Hours) Vital Signs Temp Pulse Pulse Resp BP Pulse Ox 07/11/18 08:14 51 L 48 L 155/51 H 07/11/18 07:54 36.6 C 46 L 20 161/56 H 95 07/11/18 04:05 36.7 C 54 L 16 155/60 H 91 07/10/18 23:29 36.8 C 50 L 20 145/51 H 94 (1) BPH (benign prostatic hyperplasia) Lower urinary tract symptom presence: symptoms present Lower urinary tract symptom detail: weak urinary stream Qualified Code(s): N40.1 - Benign prostatic hyperplasia with lower urinary tract symptoms; R39.12 - Poor urinary stream (2) Acute renal failure superimposed on stage 3 chronic kidney disease Acute renal failure type: unspecified Qualified Code(s): N17.9 - Acute kidney failure, unspecified; N18.3 - Chronic kidney disease, stage 3 (moderate)
[2018-07-11] MEDS: WARFARIN SOD 5 MG TAB PO SCH (16:09)
--- NOTE | 2018-07-11 16:38 | Cardiology Progress Note ---
Date of Service July 11, 2018 Assessment & Plan (1) Acute right heart failure: Creatinine this morning improved to 1.72 having been 2.01 yesterday. After discussion with Dr. Boss this morning, I therefore recommended 40 mg of IV Lasix x1 today, and we will reassess his kidney function prior to additional dosing tomorrow. There certainly does appear to be a component of venous insufficiency as the patient describes all he has to do is stand up for a short period of time and he has progressive lower extremity edema. Therefore as an outpatient, lymphedema therapy may be a good option for him, however we have to make sure his skin was optimized first. (2) Paroxysmal A-fib: The patient's resting heart rate is in the range of 45 bpm with sinus bradycardia. He has not had any episodes of atrial fibrillation for a number of years. We will reduce his metoprolol from 50 mg daily to 25 mg daily. Continue current dose of amiodarone 200 mg daily. INR is at goal at 2.7, continue Coumadin. Subjective Chief complaint: Follow-up lower extremity edema Subjective: Patient in good spirits. Resting comfortably. Byrd catheter draining clear marielena urine. Lower extremity edema continues to improve. He states his scrotal swelling is improved, but still is more swollen than baseline. Physical Exam Physical Exam: General: no acute distress and stated age, chronically ill appearance Eyes: conjunctiva are pink and non-injected, sclera clear Neck: normal jugular venous pulse, no hepatojugular reflux Chest: normal shape and normal respiratory effort Lungs: clear to auscultation and percussion Cardiac Exam: -Bradycardic regular heart sounds, no murmurs, rubs, or gallops, no jugular venous distention Abdomen: abdomen soft, non-tender, no abnormal masses and no hepatosplenomegaly Extremities: Trivial to mild edema, chronic venous stasis changes, mild erythema Neuro:awake, coversant, follows commands, no focal motor deficits Psych: appropriate affect and insight. Results & Data Vital Signs (Past 12 Hours) Vital Signs Temp Pulse Pulse Resp BP Pulse Ox 07/11/18 14:52 36.4 C L 48 L 19 148/56 H 95 07/11/18 11:42 49 L 07/11/18 11:14 36.4 C L 46 L 47 L 18 163/61 H 95 07/11/18 08:14 51 L 48 L 155/51 H 07/11/18 07:54 36.6 C 46 L 20 161/56 H 95 Laboratory Results Coagulation 07/11/18 Range/Units 06:34 PT 25.8 H (9.0-12.0) Seconds Lipids 07/11/18 Range/Units 06:34 Triglycerides 65 (0-150) mg/dl Cholesterol 112 (0-200) mg/dl HDL Cholesterol 55 mg/dl Cholesterol/HDL Ratio 2 Comprehensive Metabolic Panel 07/11/18 Range/Units 06:34 Sodium 136 (136-145) mmol/L Potassium 4.2 (3.5-5.1) mmol/L Chloride 106 (98-107) mmol/L Carbon Dioxide 27 (21-32) mmol/L BUN 35 H (7-18) mg/dl Creatinine 1.72 H (0.6-1.4) mg/dl Glucose 86 (70-99) mg/dl Calcium 7.8 L (8.5-10.1) mg/dl Intake and Output 07/11/18 07/11/18 07/11/18 06:59 14:59 22:59 Intake Total 615 / 615 Output Total 300 / 1500 650 / 650 Balance -300 / -665 -35 / -35 Intake: Oral 615 / 615 Output: Urine Amount (Catheter) 300 / 1500 650 / 650 Byrd/Indwelling 300 / 1500 650 / 650 Other: Other Intake Source sips
[2018-07-11] MEDS: ATORVASTATIN 20 MG TAB PO SCH (20:49)
[2018-07-11] MEDS: TAMSULOSIN HCL 0.4 MG CAP PO SCH (20:49)
[2018-07-12 05:59] LABS: Hematocrit (blood only) 34.5 % (42-52); Hemoglobin 11.9 g/dL (14.0-18.0); Mean Corpuscular Hgb Conc 34.5 g/dL (32-36); Mean Corpuscular Volume 87.8 fL (80-100); Mean Platelet Volume 10.1 fL (7.4-10.4); Platelet Count 148 K/uL (130-400); RDW Coefficient of Variation 14.4 % (11.5-14.5); RDW Standard Deviation 46.8 fL (36.4-46.3); Red Blood Count 3.93 M/uL (4.7-6.1)
[2018-07-12 06:13] LABS: Prothrombin Time 28.2 Seconds (9.0-12.0)
[2018-07-12 06:33] LABS: BUN Creatinine Ratio 20.6 (10-20); Calcium 7.8 mg/dl (8.5-10.1); Creatinine Clr Calc Pharmacy 40.8 ml/min; Est GFR (African American) 43.5; Est GFR (Non-African American) 37.5; Potassium 4.1 mmol/L (3.5-5.1)
[2018-07-12] MEDS: LORazepam 0.5 MG TAB PO SCH (07:57)
[2018-07-12] MEDS: AMIODARONE 200 MG TAB PO SCH (07:57)
[2018-07-12] MEDS: CLOTRIMAZOLE 1% CR 15 GM TUBE EXT SCH ×2 (07:58→20:15)
[2018-07-12] MEDS: FAMOTIDINE 20 MG TAB PO SCH ×2 (07:58→20:15)
[2018-07-12] MEDS: FLUTICASONE PROPIONATE NA SPR 16 GM BTL SCH ×2 (07:58→20:14)
[2018-07-12] MEDS: DOXYCYCLINE HYCLATE 100 MG CAP PO SCH ×2 (07:59→20:14)
[2018-07-12] MEDS: METOPROLOL SUCC 25MG EXT REL TAB PO SCH (07:59)
[2018-07-12] MEDS: BENZONATATE 100 MG CAPSULE PO SCH ×3 (08:00→20:14)
[2018-07-12] MEDS ORDERED: COUGH DROP (SUGAR FREE) LOZ 24 LOZ/1 BOX BUCCAL STA (10:58)
[2018-07-12] MEDS ORDERED: FUROSEMIDE 40 MG in SYRINGE 0 ML IV ONE (12:15)
--- NOTE | 2018-07-12 12:15 | Hospitalist Progress Note ---
Date of Service July 12, 2018 Assessment & Plan (1) Acute right heart failure: Presented with lower extremity worsening of edema bilateral, scrotal scrotal swelling, increased weight gain. Clinically improving- reduction in LE edema, Scrotal swelling, but persistent swelling Negative balance , weight no much improvement Echocardiogram shows reduced RV EF-55-60%, normal LV function, grade 2 diastolic dysfunction -S/P IV Lasix 40 mg BID. Held dose 07/10 evening due to creatinine going up to 2. 5/9- Received IV lasix 40 mg x 1 dose, Today will again give a dose of IV lasix 40 mg. Reassess volume status tomorrow and creatinine -Byrd's catheter in situ -Cardiology on board. Appreciate inputs (2) CHF with left ventricular diastolic dysfunction, NYHA class 2: History of chronic CHF with grade 2 diastolic dysfunction, Presented with acute exacerbation of combined right heart and diastolic heart failure -Continue diuresis as outlined above (3) Acute renal failure superimposed on stage 3 chronic kidney disease: Baseline creatinine 1.1 on 07/05/2018 Creatinine up to 2 on 07/10, now trending down -Diuretics mx as above -Held lisinopril -Avoid NSAIDs & Contrast studies -Monitor trend (4) Bradycardia: HR resting- 40s -Toprol XL dosing decreased to 25 mg daily from 50 mg daily -Continue with Amiodarone 200 mg daily -Monitor HR (5) Venous stasis ulcers of both lower extremities: Chronic bilateral venous stasis ulcer, secondary to chronic right heart failure-present on admission -Follows with wound clinic -Empiric antibiotic with p.o. doxycycline- Day 4/5 for possible component of cellulitis B/L -Wound care consulted- discharge instructions written. Need to consider lymphedema rx per cardiology -Norvasc discontinued-due to lower extremity venous congestion (6) Anticoagulated on warfarin: Due to history of paroxysmal Atrial fibrillation -INR therapeutic - 3.0 --. Reduced coumadin dose (7) Paroxysmal A-fib: Bradycardic with HR in 50s -On beta-carrington, amiodarone with holding parameters. On hold today due to HR in 40s -Chronic anticoagulation with coumadin -Discussed with cardiology (8) Cerebrovascular disease: -Continue aspirin/statin -No residual neurological deficit -Lipid panel done per patient's request as had been a year- Normal (9) BPH (benign prostatic hyperplasia): -Foleys present for accurate measurement -Urine cx- no sig growth CODE STATUS: Full code DVT prophylaxis: On Coumadin Disposition: PT / OT recommends home health PT Lives at home, uses walker Likely discharge in 1-2 days Discussed with cardiology Subjective Patient reports improvement in lower extremity swelling, scrotal edema, but persistent. Denies of any cough, no shortness of breath or orthopnea, no fever or chills. Negative balance. Not much change in weights Physical Exam Physical Exam: Constitutional + ill appearing (Chronically ill-appearing without distress) Respiratory Auscultation: + diminished lung sounds (Mildly decreased breath sounds at bases, no rales rhonchi or wheezing, adequate inspiratory effort. No respiratory distress.) Cardiovascular Rate/Rhythm: + bradycardic Heart Sounds: no murmur Vessels: no JVD Extremities: + edema (Lower extremity edema significantly improved, chronic venous stasis changes noted.) Gastrointestinal (Abdomen) normal bowel sounds, soft, nontender, no hepatosplenomegaly Neurologic moves all extremities; no focal motor deficits Conversant, follows commands Genitourinary Byrd catheter in place draining marielena urine Results & Data Vital Signs (Past 12 Hours) Vital Signs Temp Pulse Pulse Pulse Resp BP Pulse Ox 07/12/18 12:00 36.6 C 57 L 18 151/50 H 94 07/12/18 07:46 36.9 C 48 L 16 152/52 H 95 07/12/18 07:44 50 L 07/12/18 04:24 36.7 C 52 L 18 150/55 H 93 07/12/18 00:45 50 L (1) Acute renal failure superimposed on stage 3 chronic kidney disease Acute renal failure type: unspecified Qualified Code(s): N17.9 - Acute kidney failure, unspecified; N18.3 - Chronic kidney disease, stage 3 (moderate) (2) BPH (benign prostatic hyperplasia) Lower urinary tract symptom presence: symptoms present Lower urinary tract symptom detail: weak urinary stream Qualified Code(s): N40.1 - Benign prostatic hyperplasia with lower urinary tract symptoms; R39.12 - Poor urinary stream
--- NOTE | 2018-07-12 15:12 | Cardiology Progress Note ---
Date of Service July 12, 2018 Assessment & Plan (1) Acute right heart failure: Continue 40 mg IV furosemide once per day. Re-dose once kidney function available tomorrow. Renal function stable with creatinine 1.7. Patient with history of paroxysmal atrial fibrillation. Astigmatic sinus br adycardia noted. Metoprolol dose reduced from 50 mg daily to 25 mg daily. Continue amiodarone. Continue Coumadin, INR 3 -Lymphedema clinic may be helpful once his leg ulcerations heal. Subjective Chief complaint: Follow-up lower extremity and scrotal edema Subjective: Patient states that his left greater than right leg became more swollen after being out of bed and standing for short time today. He is eager to work with physical therapy. Telemetry reveals sinus bradycardia in the range of 45 bpm at rest. Physical Exam Constitutional: no acute distress Respiratory: normal respiratory effort, lungs clear to auscultation Cardiovascular: Rate/Rhythm: + bradycardic Heart Sounds: no murmur Vessels: no JVD Extremities: + edema (1+ left greater than right lower extremity edema, erythema and chronic venous stasis changes noted lower extremities) Genitourinary: Scrotal edema Results & Data Vital Signs (Past 12 Hours) Vital Signs Temp Pulse Pulse Pulse Resp BP Pulse Ox 07/12/18 12:00 36.6 C 57 L 18 151/50 H 94 07/12/18 07:46 36.9 C 48 L 16 152/52 H 95 07/12/18 07:44 50 L 07/12/18 04:24 36.7 C 52 L 18 150/55 H 93
[2018-07-12] MEDS: WARFARIN SOD 2.5 MG TAB PO SCH (15:32)
[2018-07-12] MEDS: ATORVASTATIN 20 MG TAB PO SCH (20:14)
[2018-07-12] MEDS: TAMSULOSIN HCL 0.4 MG CAP PO SCH (20:14)
[2018-07-13 06:46] LABS: INR 2.9 (0.9-1.1); Prothrombin Time 27.2 Seconds (9.0-12.0)
[2018-07-13 07:03] LABS: BUN Creatinine Ratio 22.8 (10-20); Calcium 8.2 mg/dl (8.5-10.1); Creatinine Clr Calc Pharmacy 48.8 ml/min; Est GFR (Non-African American) 46.6; Potassium 4.1 mmol/L (3.5-5.1)
[2018-07-13] MEDS: FAMOTIDINE 20 MG TAB PO SCH ×2 (09:04→20:27)
[2018-07-13] MEDS: AMIODARONE 200 MG TAB PO SCH (09:04)
[2018-07-13] MEDS: METOPROLOL SUCC 25MG EXT REL TAB PO SCH ×2 (09:05→09:28)
[2018-07-13] MEDS: BENZONATATE 100 MG CAPSULE PO SCH ×3 (09:06→20:26)
[2018-07-13] MEDS: DOXYCYCLINE HYCLATE 100 MG CAP PO SCH ×2 (09:07→20:27)
[2018-07-13] MEDS: CLOTRIMAZOLE 1% CR 15 GM TUBE EXT SCH ×2 (09:09→20:00)
[2018-07-13] MEDS: FLUTICASONE PROPIONATE NA SPR 16 GM BTL SCH ×2 (09:10→19:59)
[2018-07-13] MEDS: LORazepam 0.5 MG TAB PO SCH (09:26)
--- NOTE | 2018-07-13 15:29 | Hospitalist Progress Note ---
Date of Service July 13, 2018 Assessment & Plan (1) CHF (congestive heart failure): Presented with worsening lower extremity edema. Chest x-ray showed cardiomegaly, pulmonary vascular congestion, pulmonary edema. Pro-BNP was elevated @ 5692. Echo 04/06/17 demonstrated normal LVEF, aortic sclerosis without significant stenosis. Cardiology consulted. Suspect combination of acute on chronic left ventricular diastolic heart failure + right-sided heart failure. Received IV furosemide with improvement, but furosemide held due to rising creatinine. Creatinine improved. IV furosemide 40 mg today. Recheck BMP in a.m. (2) CAD (coronary artery disease): No anginal symptoms. Amlodipine stopped due to lower extremity edema. Continue metoprolol and statin. (3) Bradycardia: Asymptomatic. Metoprolol succinate dose decreased to 25 mg daily. (4) Paroxysmal A-fib: Continue amiodarone, metoprolol, warfarin. (5) Cerebrovascular disease: History of TIA. PAF. Continue warfarin and statin. (6) COPD (chronic obstructive pulmonary disease): Pulmonary status stable. (7) Acute renal failure superimposed on stage 3 chronic kidney disease: Received IV furosemide for CHF. Serum creatinine jamarcus from 1.61 to 2.01. Furosemide held. Lisinopril held. Creatinine today = 1.43. Follow. (8) Cellulitis: Lower extremity erythema- cellulitis vs venous stasis dermatitis. Receiving doxycycline. (9) Venous stasis ulcers of both lower extremities: Management per Wound Clinic. (10) DVT prophylaxis: Continue warfarin. (11) Discharge planning issues: To be determined. Family Medicine follow-up with Dr. Roldan. Subjective Recheck for CHF and other problems. Patient seen in their room around 1500. Doing better. Trying to keep legs elevated most of the time. Weight down. No SOB. Has questions about his meds. Review of Systems: Constitutional- no fever. Cardiac- as noted above. Pulmonary- no cough or SOB. GI- no nausea, vomiting, diarrhea, melena, hematochezia. - no urinary symptoms. Otherwise, as noted above. Physical Exam Constitutional: no acute distress Respiratory: no respiratory distress Auscultation: lungs clear to auscultation bilaterally Cardiovascular: Rate/Rhythm: regular rate and regular rhythm Heart Sounds: + murmur (II/ sys murmur at base); no gallop and no cardiac rub Vessels: no JVD Extremities: + edema (1-2+ pretibial edema); no calf tenderness Gastrointestinal (Abdomen): normal bowel sounds, soft, nontender, no hepa tosplenomegaly Skin: no rashes, warm and dry mild erythema lower extremities below knees Psychiatric: Orientation: alert and oriented x 3 Genitourinary: Byrd cath Results & Data Vital Signs (Past 12 Hours) Vital Signs Temp Pulse Pulse Resp BP Pulse Ox 07/13/18 11:42 36.6 C 47 L 20 148/54 H 96 07/13/18 07:32 36.4 C L 48 L 18 151/62 H 95 07/13/18 07:00 49 L 07/13/18 04:00 36.5 C 51 L 18 165/65 H 95 (1) Acute renal failure superimposed on stage 3 chronic kidney disease Acute renal failure type: unspecified Qualified Code(s): N17.9 - Acute kidney failure, unspecified; N18.3 - Chronic kidney disease, stage 3 (moderate) (2) Cellulitis Laterality: unspecified laterality Site of cellulitis: extremity Site of cellulitis of extremity: lower extremity Qualified Code(s): L03.119 - Cellulitis of unspecified part of limb
--- NOTE | 2018-07-13 15:30 | Cardiology Progress Note ---
Date of Service July 13, 2018 Assessment & Plan (1) Acute right heart failure: We will give 40 mg of IV Lasix today. Re-dose once kidney function available tomorrow. Creatinine trending downward today. Patient with history of paroxysmal atrial fibrillation. Metoprolol dose reduced from 50 mg daily to 25 mg daily. Continue amiodarone. Monitor telemetry. Continue Coumadin. Consider referral to outpatient lymphedema clinic at time of discharge. Subjective Patient seen and examined the bedside. Reports improvement lower extremity edema. Voices concern regarding heart rates down into the 40s noted on telemetry. Intermittently receiving metoprolol due to bradycardia. Telemetry reveals sinus bradycardia 50 bpm. Denies chest pain or shortness of breath. Offers no new concerns/complaints this time Review of Systems Review of Systems: All systems reviewed & are unremarkable except as noted in HPI & below Physical Exam Physical Exam: General: NAD, AAO x3, well nourished. Chronically ill. HEENT: Normocephalic. Atraumatic. Conjunctiva pink, no scleral icterus. Neck: No carotid bruits, the carotid upstrokes are brisk. No JVD. No HJR Heart: Regular normal S-1 and S-2 no S-3 or S-4 gallop. No murmurs or rub appreciated. PMI is not displaced. No RV heave. Lungs: Clear bilateral without rales , rhonchi, or wheeze. Abdomen: Normal bowel sounds. Soft. Nontender. No masses or organomegaly. No abdominal bruits. Extremities: 2+ bilateral pretibial edema with stasis changes. Pulses: radial=2/4. Neuro: Cranial nerves grossly intact. No focal motor deficit. Results & Data Vital Signs (Past 12 Hours) Vital Signs Temp Pulse Pulse Resp BP Pulse Ox 07/13/18 11:42 36.6 C 47 L 20 148/54 H 96 07/13/18 07:32 36.4 C L 48 L 18 151/62 H 95 07/13/18 07:00 49 L 07/13/18 04:00 36.5 C 51 L 18 165/65 H 95
[2018-07-13] MEDS ORDERED: FUROSEMIDE 40 MG/4 ML VIAL IV ONE (15:33)
[2018-07-13] MEDS ORDERED: POTASSIUM CHLORIDE 20 MEQ TABCR PO ONE (15:44)
[2018-07-13] MEDS ORDERED: FUROSEMIDE 40 MG in SYRINGE 0 ML IV ONE (15:45)
[2018-07-13] MEDS: WARFARIN SOD 2.5 MG TAB PO SCH (17:50)
[2018-07-13] MEDS: ATORVASTATIN 20 MG TAB PO SCH (20:00)
[2018-07-13] MEDS: TAMSULOSIN HCL 0.4 MG CAP PO SCH (20:27)
[2018-07-14 06:06] LABS: INR 2.8 (0.9-1.1); Prothrombin Time 26.4 Seconds (9.0-12.0)
[2018-07-14 06:17] LABS: BUN Creatinine Ratio 24.4 (10-20); Calcium 8.2 mg/dl (8.5-10.1); Creatinine Clr Calc Pharmacy 52.5 ml/min; Est GFR (African American) 58.9; Est GFR (Non-African American) 50.8; Potassium 4.3 mmol/L (3.5-5.1)
--- NOTE | 2018-07-14 08:43 | Hospitalist Progress Note ---
Date of Service July 14, 2018 Assessment & Plan (1) CHF (congestive heart failure): Presented with worsening lower extremity edema. Chest x-ray showed cardiomegaly, pulmonary vascular congestion, pulmonary edema. Pro-BNP was elevated @ 5692. Echo 04/06/17 demonstrated normal LVEF, aortic sclerosis without significant stenosis. Cardiology consulted. Suspect combination of acute on chronic left ventricular diastolic heart failure + right-sided heart failure. Received IV furosemide with improvement, but furosemide held due to rising creatinine. Creatinine subsequently improved. Received IV furosemide 40 mg yesterday. Creatinine today continues to improve. Repeat furosemide 40 mg IV today. Recheck BMP in a.m. (2) CAD (coronary artery disease): No anginal symptoms. Amlodipine stopped due to lower extremity edema. Continue metoprolol and statin. (3) Bradycardia: Asymptomatic. Metoprolol succinate dose decreased to 25 mg daily. (4) Paroxysmal A-fib: Continue amiodarone, metoprolol, warfarin. (5) Cerebrovascular disease: History of TIA. PAF. Continue warfarin and statin. (6) Hypertension: Systolic BP's running 140-160. Metoprol succinate dose decreased due to bradycardia. Amlodipine stopped due to lower extremity edema. Lisinopril held due to MARLENA. May be able to resume lisinopril soon if renal function remains stable. (7) COPD (chronic obstructive pulmonary disease): Pulmonary status stable. (8) Acute renal failure superimposed on stage 3 chronic kidney disease: Received IV furosemide for CHF. Serum creatinine jamarcus from 1.61 to 2.01. Furosemide held. Lisinopril held. Creatinine today = 1.33. Follow. (9) Cellulitis: Lower extremity erythema- cellulitis vs venous stasis dermatitis. Received doxycycline x 5 days. (10) Venous stasis ulcers of both lower extremities: Management per [facility]. (11) DVT prophylaxis: Continue warfarin. (12) Discharge planning issues: To be determined. Family Medicine follow-up with Dr. Roldan. Subjective Recheck for CHF and other problems. Patient seen in their room around 0740. Persistent dependent edema and scrotal edema. Keeping legs elevated when able. No SOB. Reluctant to have Byrd removed. Starting to feel constipated and would like to resume MiraLax. Review of Systems: Constitutional- no fever. Cardiac- as noted above. Pulmonary- no cough or SOB. GI- no nausea, vomiting, diarrhea, melena, hematochezia. - Byrd cath Otherwise, as noted above. Physical Exam Constitutional: no acute distress Respiratory: no respiratory distress Auscultation: + crackles (few bibasilar) Cardiovascular: Rate/Rhythm: regular rate and regular rhythm Heart Sounds: + murmur (II/ sys murmur at base); no gallop and no cardiac rub Vessels: no JVD Extremities: + edema (1+ pretibial edema, 2+ pedal edema); no calf tenderness Gastrointestinal (Abdomen): normal bowel sounds, soft, nontender, no hepatosplenomegaly Skin: no rashes, warm and dry Psychiatric: Orientation: alert and oriented x 3 Genitourinary: Byrd cath, scrotal edema Results & Data Vital Signs (Past 12 Hours) Vital Signs Temp Pulse Pulse Resp BP Pulse Ox 07/14/18 08:14 36.9 C 55 L 20 162/60 H 94 07/14/18 03:47 36.7 C 52 L 18 161/58 H 94 07/13/18 23:46 48 L 07/13/18 23:17 36.7 C 55 L 18 160/58 H 94 Laboratory Results Laboratory Results - last 24 hr 07/14/18 07/14/18 05:30 05:30 PT 26.4 H INR 2.8 H Sodium 139 Potassium 4.3 Chloride 105 Carbon Dioxide 27 Anion Gap 6.0 BUN 32 H Creatinine 1.33 Est Cr Clr Drug Dosing 52.5 Est GFR ( Amer) 58.9 Est GFR (Non-Af Amer) 50.8 BUN/Creatinine Ratio 24.4 H Glucose 90 Calcium 8.2 L Magnesium 2.0 (1) Acute renal failure superimposed on stage 3 chronic kidney disease Acute renal failure type: unspecified Qualified Code(s): N17.9 - Acute kidney failure, unspecified; N18.3 - Chronic kidney disease, stage 3 (moderate) (2) Cellulitis Laterality: unspecified laterality Site of cellulitis: extremity Site of cellulitis of extremity: lower extremity Qualified Code(s): L03.119 - Cellulitis of unspecified part of limb
[2018-07-14] MEDS: LORazepam 0.5 MG TAB PO SCH (09:34)
[2018-07-14] MEDS: BENZONATATE 100 MG CAPSULE PO SCH ×4 (09:35→19:50)
[2018-07-14] MEDS: METOPROLOL SUCC 25MG EXT REL TAB PO SCH (09:35)
[2018-07-14] MEDS: FAMOTIDINE 20 MG TAB PO SCH ×2 (09:36→19:50)
[2018-07-14] MEDS: AMIODARONE 200 MG TAB PO SCH (09:36)
[2018-07-14] MEDS: FLUTICASONE PROPIONATE NA SPR 16 GM BTL SCH ×2 (09:37→19:49)
[2018-07-14] MEDS: CLOTRIMAZOLE 1% CR 15 GM TUBE EXT SCH ×3 (09:38→19:50)
[2018-07-14] MEDS: NYSTATIN POWDER 15GM BTL EXT PRN (09:43)
[2018-07-14] MEDS ORDERED: FUROSEMIDE 40 MG in SYRINGE 0 ML IV ONE (10:00)
[2018-07-14] MEDS ORDERED: FUROSEMIDE 40 MG/4 ML VIAL IV ONE (10:00)
[2018-07-14] MEDS: POLYETHYLENE (MIRALAX) 17 GM PACK PO SCH (12:22)
--- NOTE | 2018-07-14 14:21 | Cardiology Progress Note ---
Date of Service July 14, 2018 Assessment & Plan (1) Acute right heart failure: 40 mg of IV Lasix today. Re-dose once kidney function available tomorrow. Creatinine continues to trend downward. Patient with history of paroxysmal atrial fibrillation. Continue amiodarone and low-dose Toprol-XL. Monitor telemetry. Continue Coumadin. INR therapeutic today. No symptomatic bradycardia. Patient remains in sinus rhythm. Consider referral to outpatient lymphedema clinic at time of discharge. Subjective Patient seen and examined at the bedside. Lower extremity edema unchanged. Received 40 mg of intravenous Lasix earlier today. Currently wearing compression stockings. Voices concern regarding scrotal edema and difficulty urinating without a catheter. Denies orthopnea or PND. No lightheaded, dizziness, syncope, near syncope. Telemetry demonstrates sinus rhythm and sinus bradycardia. Heart rates as low as 48 bpm recorded during evening hours. Offers no new complaints at this time. Review of Systems Review of Systems: All systems reviewed & are unremarkable except as noted in HPI & below Physical Exam Physical Exam: General: NAD, AAO x3, well nourished. Chronically ill. HEENT: Normocephalic. Atraumatic. Conjunctiva pink, no scleral icterus. Neck: No ca rotid bruits, the carotid upstrokes are brisk. No JVD. No HJR Heart: Regular normal S-1 and S-2 no S-3 or S-4 gallop. No murmurs or rub appreciated. PMI is not displaced. No RV heave. Lungs: Clear bilateral without rales , rhonchi, or wheeze. Abdomen: Normal bowel sounds. Soft. Nontender. No masses or organomegaly. No abdominal bruits. Extremities: + bilateral compression stockings below the knee. 2+ bilateral pretibial edema with stasis changes. Pulses: radial=2/4. Neuro: Cranial nerves grossly intact. No focal motor deficit. Results & Data Vital Signs (Past 12 Hours) Vital Signs Temp Pulse Pulse Pulse Resp BP BP 07/14/18 12:00 36.4 C L 49 L 18 148/58 H 07/14/18 08:14 36.9 C 55 L 20 162/60 H 07/14/18 08:00 50 L 07/14/18 03:47 36.7 C 52 L 18 161/58 H Pulse Ox 07/14/18 12:00 98 07/14/18 08:14 94 07/14/18 08:00 07/14/18 03:47 94 Laboratory Results Laboratory Results - last 24 hr 07/14/18 07/14/18 05:30 05:30 PT 26.4 H INR 2.8 H Sodium 139 Potassium 4.3 Chloride 105 Carbon Dioxide 27 Anion Gap 6.0 BUN 32 H Creatinine 1.33 Est Cr Clr Drug Dosing 52.5 Est GFR ( Amer) 58.9 Est GFR (Non-Af Amer) 50.8 BUN/Creatinine Ratio 24.4 H Glucose 90 Calcium 8.2 L Magnesium 2.0
[2018-07-14] MEDS: WARFARIN SOD 2.5 MG TAB PO SCH (16:27)
[2018-07-14] MEDS: ATORVASTATIN 20 MG TAB PO SCH (19:50)
[2018-07-14] MEDS: TAMSULOSIN HCL 0.4 MG CAP PO SCH (19:50)
[2018-07-15] MEDS: ACETAMINOPHEN 325 MG TAB PO PRN (03:32)
[2018-07-15 06:57] LABS: INR 2.6 (0.9-1.1); Prothrombin Time 24.5 Seconds (9.0-12.0)
[2018-07-15 07:25] LABS: BUN Creatinine Ratio 21.5 (10-20); Calcium 8.4 mg/dl (8.5-10.1); Creatinine Clr Calc Pharmacy 53.3 ml/min; Est GFR (Non-African American) 51.8
[2018-07-15] MEDS ORDERED: POTASSIUM CHLORIDE 20 MEQ TABCR PO ONE (08:57)
[2018-07-15] MEDS ORDERED: FUROSEMIDE 40 MG/4 ML VIAL IV ONE (08:57)
--- NOTE | 2018-07-15 08:57 | Hospitalist Progress Note ---
Date of Service July 15, 2018 Assessment & Plan (1) CHF (congestive heart failure): Presented with worsening lower extremity edema. Chest x-ray showed cardiomegaly, pulmonary vascular congestion, pulmonary edema. Pro-BNP was elevated @ 5692. Echo 04/06/17 demonstrated normal LVEF, aortic sclerosis without significant stenosis. Cardiology consulted. Suspect combination of acute on chronic left ventricular diastolic heart failure + right-sided heart failure. Received IV furosemide with improvement, but furosemide held due to rising creatinine. Creatinine subsequently improved and furosemide resumed. Repeat furosemide 40 mg IV today. Recheck BMP in a.m. (2) CAD (coronary artery disease): No anginal symptoms. Amlodipine stopped due to lower extremity edema. Continue metoprolol and statin. (3) Bradycardia: Asymptomatic. Metoprolol succinate dose decreased to 25 mg daily. (4) Paroxysmal A-fib: Continue amiodarone, metoprolol, warfarin. (5) Cerebrovascular disease: History of TIA. PAF. Continue warfarin and statin. (6) Hypertension: Systolic BP's running 140-160's. Metoprol succinate dose decreased due to bradycardia. Amlodipine stopped due to lower extremity edema. Lisinopril held due to MARLENA. May be able to resume lisinopril soon if renal function remains stable. (7) COPD (chronic obstructive pulmonary disease): Pulmonary status stable. (8) Acute renal failure superimposed on stage 3 chronic kidney disease: Received IV furosemide for CHF. Serum creatinine jamarcus from 1.61 to 2.01. Furosemide held. Lisinopril held. Creatinine today = 1.31. Follow. (9) Cellulitis: Lower extremity erythema- cellulitis vs venous stasis dermatitis. Received doxycycline x 5 days. (10) Venous stasis ulcers of both lower extremities: Management per [facility]. (11) DVT prophylaxis: Continue warfarin. (12) Discharge planning issues: Anticipated discharge to home. Family Medicine follow-up with Dr. Roldan. Subjective Recheck for CHF and other problems. Patient seen in their room around 0750. Persistent dependent edema when sitting. Persistent scrotal edema. Keeping legs elevated when able. No SOB. Still reluctant to have Byrd removed. MiraLax resumed yesterday, BM this morning. Review of Systems: Constitutional- no fever. Cardiac- as noted above. Pulmonary- no cough or SOB. GI- no nausea, vomiting, diarrhea, melena, hematochezia. - Byrd cath Otherwise, as noted above. Physical Exam Constitutional: no acute distress Respiratory: normal respiratory effort, lungs clear to auscultation no respiratory distress Cardiovascular: Rate/Rhythm: regular rate and regular rhythm Heart Sounds: + murmur (II/ sys murmur at base); no gallop and no cardiac rub Vessels: no JVD Extremities: + edema (trace pretibial edema, 1+ pedal edema); no calf tenderness Gastrointestinal (Abdomen): normal bowel sounds, soft, nontender, no hepatosplenomegaly Musculoskeletal: Extremities: + extremities abnormal to inspection (TEDS applied) Skin: no rashes, warm and dry Psychiatric: Orientation: alert and oriented x 3 Genitourinary: + penis abnormality (Byrd cath) and + scrotal swelling Results & Data Vital Signs (Past 12 Hours) Vital Signs Temp Pulse Pulse Pulse Resp BP Pulse Ox 07/15/18 07:23 36.8 C 48 L 16 164/67 H 95 07/15/18 05:10 36.7 C 50 L 18 149/68 H 94 07/15/18 00:04 48 L 07/14/18 23:10 36.8 C 52 L 18 168/72 H 96 Laboratory Results Laboratory Results - last 24 hr 07/15/18 07/15/18 07/15/18 06:22 06:22 07:32 PT 24.5 H INR 2.6 H Sodium 138 Potassium 4.1 Chloride 106 Carbon Dioxide 24 Anion Gap 8.0 BUN 28 H Creatinine 1.31 Est Cr Clr Drug Dosing 53.3 Est GFR ( Amer) 60.0 Est GFR (Non-Af Amer) 51.8 BUN/Creatinine Ratio 21.5 H Glucose 92 Calcium 8.4 L (1) Acute renal failure superimposed on stage 3 chronic kidney disease Acute renal failure type: unspecified Qualified Code(s): N17.9 - Acute kidney failure, unspecified; N18.3 - Chronic kidney disease, stage 3 (moderate) (2) Cellulitis Laterality: unspecified laterality Site of cellulitis: extremity Site of cellulitis of extremity: lower extremity Qualified Code(s): L03.119 - Cellulitis of unspecified part of limb
[2018-07-15] MEDS: AMIODARONE 200 MG TAB PO SCH (09:01)
[2018-07-15] MEDS: LORazepam 0.5 MG TAB PO SCH (09:01)
[2018-07-15] MEDS: CLOTRIMAZOLE 1% CR 15 GM TUBE EXT SCH ×2 (09:02→21:34)
[2018-07-15] MEDS: FAMOTIDINE 20 MG TAB PO SCH ×2 (09:02→21:33)
[2018-07-15] MEDS: BENZONATATE 100 MG CAPSULE PO SCH ×3 (09:02→21:34)
[2018-07-15] MEDS: METOPROLOL SUCC 25MG EXT REL TAB PO SCH (09:02)
[2018-07-15] MEDS: FLUTICASONE PROPIONATE NA SPR 16 GM BTL SCH ×2 (09:02→21:32)
[2018-07-15] MEDS ORDERED: FUROSEMIDE 40 MG in SYRINGE 0 ML IV ONE (10:30)
[2018-07-15] MEDS: POLYETHYLENE (MIRALAX) 17 GM PACK PO SCH (11:02)
--- NOTE | 2018-07-15 12:18 | Cardiology Progress Note ---
Date of Service July 15, 2018 Assessment & Plan (1) Acute right heart failure: 40 mg of IV Lasix given today. Creatinine stable at 1.3. Transition to oral Lasix 40 mg daily tomorrow pending review of a.m. labs. Patient with history of paroxysmal atrial fibrillation. Will discontinue To prol-XL continue amiodarone at this time due to sinus bradycardia with heart rates down into the mid 40s. Monitor telemetry. Continue Coumadin. INR therapeutic today. Consider referral to outpatient lymphedema clinic at time of discharge. Subjective Patient seen and examined at the bedside. Negative fluid balance over the past 24 hours. Creatinine remains stable. Received 40mg of IV Lasix today. Blood pressure remains elevated. Lisinopril on hold since admission due to elevated creatinine. Edema improving. Wearing compression stockings. Patient offers no other concerns at this time. Review of Systems Review of Systems: All systems reviewed & are unremarkable except as noted in HPI & below Physical Exam Physical Exam: General: NAD, AAO x3, well nourished. Chronically ill. HEENT: Normocephalic. Atraumatic. Conjunctiva pink, no scleral icterus. Neck: No carotid bruits, the carotid upstrokes are brisk. No JVD. No HJR Heart: Regular normal S-1 and S-2 no S-3 or S-4 gallop. No murmurs or rub appreciated. PMI is not displaced. No RV heave. Lungs: Clear bilateral without rales , rhonchi, or wheeze. Abdomen: Normal bowel sounds. Soft. Nontender. No masses or o rganomegaly. No abdominal bruits. Extremities: + bilateral compression stockings below the knee. 1-2+ bilateral pretibial edema with stasis changes. Pulses: radial=2/4. Neuro: Cranial nerves grossly intact. No focal motor deficit. Results & Data Vital Signs (Past 12 Hours) Vital Signs Temp Pulse Pulse Pulse Resp BP BP 07/15/18 11:39 36.1 C L 50 L 18 161/58 H 07/15/18 09:00 60 07/15/18 07:23 36.8 C 48 L 16 164/67 H 07/15/18 05:10 36.7 C 50 L 18 149/68 H Pulse Ox 07/15/18 11:39 94 07/15/18 09:00 07/15/18 07:23 95 07/15/18 05:10 94
[2018-07-15] MEDS: WARFARIN SOD 2.5 MG TAB PO SCH (16:11)
[2018-07-15] MEDS: ATORVASTATIN 20 MG TAB PO SCH (21:33)
[2018-07-15] MEDS: TAMSULOSIN HCL 0.4 MG CAP PO SCH (21:34)
[2018-07-16] MEDS: ACETAMINOPHEN 325 MG TAB PO PRN (02:00)
[2018-07-16 06:11] LABS: INR 2.3 (0.9-1.1); Prothrombin Time 22.5 Seconds (9.0-12.0)
[2018-07-16 06:29] LABS: BUN Creatinine Ratio 21.2 (10-20); Calcium 8.1 mg/dl (8.5-10.1); Creatinine Clr Calc Pharmacy 51.7 ml/min; Est GFR (African American) 57.9; Est GFR (Non-African American) 49.9; Potassium 4.6 mmol/L (3.5-5.1)
[2018-07-16] MEDS: FLUTICASONE PROPIONATE NA SPR 16 GM BTL SCH ×2 (07:47→21:14)
[2018-07-16] MEDS: CLOTRIMAZOLE 1% CR 15 GM TUBE EXT SCH ×2 (07:47→21:13)
[2018-07-16] MEDS: LORazepam 0.5 MG TAB PO SCH (07:54)
[2018-07-16] MEDS: AMIODARONE 200 MG TAB PO SCH (07:54)
[2018-07-16] MEDS: FAMOTIDINE 20 MG TAB PO SCH ×2 (07:54→21:14)
[2018-07-16] MEDS: BENZONATATE 100 MG CAPSULE PO SCH ×3 (07:54→21:14)
[2018-07-16] MEDS: LISINOPRIL 40 MG TAB PO SCH (07:54)
--- NOTE | 2018-07-16 08:06 | Hospitalist Progress Note ---
Date of Service July 16, 2018 Assessment & Plan (1) CHF (congestive heart failure): Presented with worsening lower extremity edema. Chest x-ray showed cardiomegaly, pulmonary vascular congestion, pulmonary edema. Pro-BNP was elevated @ 5692. Echo 04/06/17 demonstrated normal LVEF, aortic sclerosis without significant stenosis. Cardiology consulted. Suspect combination of acute on chronic left ventricular diastolic heart failure + right-sided heart failure. Received IV furosemide with improvement, but furosemide held due to rising creatinine. Creatinine subsequently improved and furosemide resumed. Wt 91.6 --> 86.8 kg. Continue furosemide 40 mg IV daily until edema improved. Check f/u CXR 06/17. Recheck BMP in a.m. (2) CAD (coronary artery disease): No anginal symptoms. Amlodipine stopped due to lower extremity edema. Continue metoprolol and statin. (3) Bradycardia: Asymptomatic. Metoprolol succinate dose decreased to 25 mg daily. (4) Paroxysmal A-fib: Continue amiodarone, metoprolol, warfarin. (5) Cerebrovascular disease: History of TIA. PAF. Continue warfarin and statin. (6) Hypertension: Systolic BP's running 140-160's. Metoprol succinate dose decreased due to bradycardia. Amlodipine stopped due to lower extremity edema. Lisinopril held due to MARLENA. MARLENA improved- resume lisinopril. (7) COPD (chronic obstructive pulmonary disease): Pulmonary status stable. (8) Acute renal failure superimposed on stage 3 chronic kidney disease: Received IV furosemide for CHF. Serum creatinine jamarcus from 1.61 to 2.01. Furosemide held. Lisinopril held. Creatinine today = 1.35. Follow. (9) Cellulitis: Lower extremity erythema- cellulitis vs venous stasis dermatitis. Received doxycycline x 5 days. (10) Venous stasis ulcers of both lower extremities: Management per [facility]. (11) DVT prophylaxis: Continue warfarin. (12) Discharge planning issues: Anticipated discharge to home with services. Family Medicine follow-up with Dr. Roldan. Cardiology follow-up with Dr. Soria. Will need CHF instructions and f/u BMP + Mg in 1 week. Subjective Recheck for CHF and other problems. Patient seen in their room around 0745. Persistent dependent edema when sitting or standing. Persistent scrotal edema. Keeping legs elevated when able. No SOB. Rare cough. Willing to have Byrd removed. Ambulated with PT yesterday; would like home health therapies. Review of Systems: Constitutional- no fever. Cardiac- as noted above. Pulmonary- rare cough; no SOB. GI- no nausea, vomiting, diarrhea, melena, hematochezia. - still has Byrd cath Otherwise, as noted above. Physical Exam Constitutional: no acute distress Respiratory: normal respiratory effort, lungs clear to auscultation no respiratory distress Auscultation: + crackles (few bibasilar) Cardiovascular: Rate/Rhythm: regular rate and regular rhythm Heart Sounds: + murmur (II/ sys murmur at base); no gallop and no cardiac rub Vessels: no JVD Extremities: + edema (trace pretibial edema, 1+ pedal edema); no calf tenderness Gastrointestinal (Abdomen): normal bowel sounds, soft, nontender, no hepatosplenomegaly Musculoskeletal: Extremities: + extremities abnormal to inspection (TEDS applied) Skin: no rashes, warm and dry Psychiatric: Orientation: alert and oriented x 3 Genitourinary: + penis abnormality (Byrd cath) and + scrotal swelling Results & Data Vital Signs (Past 12 Hours) Vital Signs Temp Pulse Pulse Resp BP BP Pulse Ox 07/16/18 07:41 36.3 C L 47 L 18 168/73 H 96 07/16/18 06:37 36.9 C 53 L 20 170/69 H 93 07/15/18 23:37 50 L 07/15/18 23:13 36.8 C 54 L 18 159/63 H 94 07/15/18 20:09 36.7 C 49 L 18 164/63 H 94 (1) Acute renal failure superimposed on stage 3 chronic kidney disease Acute renal failure type: unspecified Qualified Code(s): N17.9 - Acute kidney failure, unspecified; N18.3 - Chronic kidney disease, stage 3 (moderate) (2) Cellulitis Laterality: unspecified laterality Site of cellulitis: extremity Site of cellulitis of extremity: lower extremity Qualified Code(s): L03.119 - Cellulitis of unspecified part of limb
[2018-07-16] MEDS: FUROSEMIDE 40 MG in SYRINGE 0 ML IV SCH (10:28)
[2018-07-16] MEDS: POLYETHYLENE (MIRALAX) 17 GM PACK PO SCH (11:47)
--- NOTE | 2018-07-16 12:23 | Cardiology Progress Note ---
Date of Service July 16, 2018 Assessment & Plan (1) Acute right heart failure: Continue Lasix 40 mg IV daily. Below the knee compression stockings. Creatinine stable at 1.3. (2) Hypertension: Lisinopril restarted with improved BP control. (3) Atrial fibrillation: Sinus bradycardia on telemetry. Toprol-XL discontinued due to persistent bradycardia with heart rates in the 40s. Continue amiodarone for rhythm control. INR therapeutic. Subjective Patient seen and examined at the bedside. Fluid balance negative approximately 1 L over the past 24 hours. Lisinopril restarted. Blood pressure has improved. Toprol-XL is continued due to persistent sinus bradycardia. Amiodarone continued. No dysrhythmias on telemetry. Edema improved today. Byrd catheter removed. Patient offers no new concerns/complaints at this time. Review of Systems Review of Systems: All systems reviewed & are unremarkable except as noted in HPI & below Physical Exam Physical Exam: General: NAD, AAO x3, well nourished. Chronically ill. HEENT: Normocephalic. Atraumatic. Conjunctiva pink, no scleral icterus. Neck: No carotid bruits, the carotid upstrokes are brisk. No JVD. No HJR Heart: Regular normal S-1 and S-2 no S-3 or S-4 gallop. No murmurs or rub appreciated. PMI is not displaced. No RV heave. Lungs: Clear bilateral without rales , rhonchi, or wheeze. Abdomen: Normal bowel sounds. Soft. Nontender. No masses or organomegaly. No abdominal bruits. Extremities: + bilateral compression stockings below the knee. 1+ bilateral pretibial edema with stasis changes. Pulses: radial=2/4. Neuro: Cranial nerves grossly intact. No focal motor deficit. Results & Data Vital Signs (Past 12 Hours) Vital Signs Temp Pulse Pulse Resp BP BP Pulse Ox 07/16/18 11:51 36.4 C L 49 L 18 154/63 H 95 07/16/18 09:00 46 L 07/16/18 07:41 36.3 C L 47 L 18 168/73 H 96 07/16/18 06:37 36.9 C 53 L 20 170/69 H 93 Laboratory Results Laboratory Results - last 24 hr 07/16/18 07/16/18 05:39 05:39 PT 22.5 H INR 2.3 H Sodium 137 Potassium 4.6 Chloride 105 Carbon Dioxide 27 Anion Gap 5.0 BUN 29 H Creatinine 1.35 Est Cr Clr Drug Dosing 51.7 Est GFR ( Amer) 57.9 Est GFR (Non-Af Amer) 49.9 BUN/Creatinine Ratio 21.2 H Glucose 95 Calcium 8.1 L
[2018-07-16] MEDS: WARFARIN SOD 2.5 MG TAB PO SCH (16:05)
[2018-07-16] MEDS: ATORVASTATIN 20 MG TAB PO SCH (21:14)
[2018-07-16] MEDS: TAMSULOSIN HCL 0.4 MG CAP PO SCH (21:14)
[2018-07-17 06:32] LABS: INR 2.1 (0.9-1.1); Prothrombin Time 20.1 Seconds (9.0-12.0)
[2018-07-17 06:57] LABS: BUN Creatinine Ratio 19.1 (10-20); Calcium 8.2 mg/dl (8.5-10.1); Creatinine Clr Calc Pharmacy 52.9 ml/min; Est GFR (African American) 59.5; Est GFR (Non-African American) 51.3; Potassium 4.4 mmol/L (3.5-5.1)
[2018-07-17] MEDS: CLOTRIMAZOLE 1% CR 15 GM TUBE EXT SCH ×2 (08:45→20:58)
[2018-07-17] MEDS: FLUTICASONE PROPIONATE NA SPR 16 GM BTL SCH ×2 (08:45→20:58)
[2018-07-17] MEDS: LORazepam 0.5 MG TAB PO SCH (08:46)
[2018-07-17] MEDS: BENZONATATE 100 MG CAPSULE PO SCH ×3 (08:46→20:59)
[2018-07-17] MEDS: FAMOTIDINE 20 MG TAB PO SCH ×2 (08:46→20:59)
[2018-07-17] MEDS: FUROSEMIDE 40 MG in SYRINGE 0 ML IV SCH (08:46)
[2018-07-17] MEDS: AMIODARONE 200 MG TAB PO SCH (08:46)
[2018-07-17] MEDS: LISINOPRIL 40 MG TAB PO SCH (08:46)
--- NOTE | 2018-07-17 08:51 | XRay Report ---
XR chest 2V routine HISTORY: Follow-up congestive heart failure. COMPARISON: Chest 07/08/2018. FINDINGS: There are poststernotomy changes. The heart remains mildly enlarged. No focal lung consolid ations to suggest pneumonia. Trace bilateral pleural effusions. The pulmonary edema has essentially r esolved. IMPRESSION: Near complete resolution of the pulmonary edema. Trace bilateral pleural effusions. Electronically signed by: Andres Swanson M.D. 07/17/2018 8:49 AM
--- NOTE | 2018-07-17 11:02 | Hospitalist Progress Note ---
Date of Service July 17, 2018 Assessment & Plan (1) CHF (congestive heart failure): Presented with worsening lower extremity edema. Chest x-ray showed cardiomegaly, pulmonary vascular congestion, pulmonary edema. Pro-BNP was elevated @ 5692. Echo 04/06/17 demonstrated normal LVEF, aortic sclerosis without significant stenosis. Echo on 07/09/2018: Mild concentric LV hypertrophy, LV wall motion is normal, LV systolic function is normal with an EF of 55 to 60%, RV is normal in size, right ventricular systolic function is mild to moderately reduced, aortic valve sclerosis mild without significant stenosis, mild tricuspid regurgitation and grade 2 diastolic dysfunction Has been receiving IV furosemide with improvement, Creatinine has been normalized and lisinopril has been restarted Check f/u CXR 06/17; near complete resolution of the pulmonary edema. Trace bilateral effusions We will start his oral furosemide from tomorrow Likely discharge tomorrow in the afternoon (2) CAD (coronary artery disease): No anginal symptoms. Amlodipine stopped due to lower extremity edema. Continue metoprolol and statin. Dose has been adjusted due to bradycardia (3) Bradycardia: Asymptomatic. Metoprolol succinate dose decreased to 25 mg daily. As above (4) Paroxysmal A-fib: Continue amiodarone, metoprolol, warfarin. -Rate remains controlled and INR is therapeutic (5) Cerebrovascular disease: History of TIA. PAF. Continue warfarin and statin. (6) Hypertension: Systolic BP's running 140-160's. Metoprol succinate dose decreased due to bradycardia. Amlodipine stopped due to lower extremity edema. Blood pressure is controlled (7) COPD (chronic obstructive pulmonary disease): Pulmonary status stable. Denies any shortness of breath and wheezing at rest (8) Acute renal failure superimposed on stage 3 chronic kidney disease: Received IV furosemide for CHF. Serum creatinine jamarcus from 1.61 to 2.01. Furosemide held. Lisinopril held. Creatinine normalized and lisinopril was restarted (9) Cellulitis: Lower extremity erythema- cellulitis vs venous stasis dermatitis. Received doxycycline x 5 days. Cellulitis is improved (10) Venous stasis ulcers of both lower extremities: Management per [facility]. (11) DVT prophylaxis: Continue warfarin. (12) Discharge planning issues: Anticipated discharge to home with services. Family Medicine follow-up with Dr. Roldan. Cardiology follow-up with Dr. Yang. Will need CHF instructions and f/u BMP + Mg in 1 week. Subjective 07/17 The patient was seen and examined in medical telemetry unit This is a 78-year-old male with past medical history significant for hyperlipidemia, COPD, moderate, chronic sinusitis, paroxysmal atrial fibrillation, chronic diastolic heart failure, dilatation of thoracic aorta, lower extremity venous insufficiency,diverticulosis of colon, GERD, BPH, history of lower extremity ulcers,history of peripheral neuropathy, generalized anxiety disorder, status post ascending aortic aneurysm repair, history of TIA, presented with worsening lower extremity edema Has been feeling a lot better since admission Edema has gone down and a scrotal edema has gone down too Denies any chest pain and/or shortness of breath Review of Systems Review of Systems: All systems reviewed and are unremarkable except as noted below Constitutional: + malaise Musculoskeletal: Denies any acute joint pain. Swelling of the legs are getting better Physical Exam Constitutional: well nourished; no acute distress Eyes: PERRL, conjunctivae normal, anicteric sclerae ENMT: external ear and nose normal, oropharynx normal Neck: trachea midline, no thyromegaly Respiratory: normal respiratory effort; no respiratory distress Auscultation: + diminished lung sounds and + crackles (few bibasilar); no wheezes Cardiovascular: Rate/Rhythm: regular rate, regular rhythm and + bradycardic Heart Sounds: + murmur (II/ sys murmur at base); no gallop and no cardiac rub Vessels: no JVD Extremities: + pedal edema and + edema (trace pretibial edema, 1+ pedal edema); no calf tenderness Gastrointestinal (Abdomen): normal bowel sounds, soft, nontender, no hepatosplenomegaly Inspection/Auscultation: + abdomen distended and normal bowel sounds Percussion/Palpation: abdomen soft; abdomen nontender Musculoskeletal: Extremities: + extremities abnormal to inspection (TEDS applied) Skin: no rashes, warm and dry Neurologic: PERRL, EOMI, accommodation nl, no face palsy, no dysarthria Psychiatric: A+Ox3, euthymic affect Orientation: alert and oriented x 3 Genitourinary: + penis abnormality (Byrd cath) and + scrotal swelling Pen ile and scrotal swelling improved Results & Data Vital Signs (Past 12 Hours) Vital Signs Temp Pulse Pulse Pulse Resp BP BP 07/17/18 09:00 58 L 07/17/18 06:59 36.7 C 56 L 20 138/52 L 07/17/18 04:00 36.3 C L 52 L 18 164/68 H 07/17/18 00:00 51 L 07/16/18 23:29 36.3 C L 49 L 18 154/61 H Pulse Ox 07/17/18 09:00 07/17/18 06:59 93 07/17/18 04:00 97 07/17/18 00:00 07/16/18 23:29 94 Laboratory Results BMP 07/17/18 05:57 Sodium 139 Potassium 4.4 Chloride 107 Carbon Dioxide 28 BUN 25 H Creatinine 1.32 Glucose 91 Calcium 8.2 L Medications Administered Current Inpatient Medications Acetaminophen (Tylenol) 650 mg PO Q4H PRN PRN Reason: Pain or Fever Stop: 08/08/18 00:55 Last Admin: 07/16/18 02:00 Dose: 650 mg Documented by: Amiodarone HCl (Cordarone) 200 mg PO QAM [facility] Stop: 08/08/18 08:59 Last Admin: 07/17/18 08:46 Dose: 200 mg Documented by: Atorvastatin Calcium (Lipitor) 20 mg PO DAILY@1900 [facility] Stop: 08/10/18 18:59 Last Admin: 07/16/18 21:14 Dose: 20 mg Documented by: Benzonatate (Tessalon Perle) 100 mg PO TID [facility] Stop: 08/08/18 19:14 Last Admin: 07/17/18 08:46 Dose: 100 mg Documented by: Clotrimazole (Lotrimin 1%) 1 appln EXT BID [facility] Stop: 08/08/18 08:59 Last Admin: 07/17/18 08:45 Dose: Not Given Documented by: Famotidine (Pepcid) 20 mg PO BID [facility] Stop: 08/08/18 10:29 Last Admin: 07/17/18 08:46 Dose: 20 mg Documented by: Fluticasone Propionate (Flonase) 1 sprays NA BID [facility] Stop: 08/08/18 11:59 Last Admin: 07/17/18 08:45 Dose: Not Given Documented by: Furosemide 40 mg/ Syringe 4 mls @ 4 mls/min IV DAILY [facility] Stop: 08/15/18 08:59 Last Admin: 07/17/18 08:46 Dose: 4 mls/min Documented by: Lisinopril (Zestril) 40 mg PO QAM [facility] Stop: 08/09/18 08:59 Last Admin: 07/17/18 08:46 Dose: 40 mg Documented by: Lorazepam (Ativan) 0.5 mg PO QAM [facility] Stop: 08/09/18 08:59 Last Admin: 07/17/18 08:46 Dose: 0.5 mg Documented by: Magnesium Oxide (Mag-Ox) 400 mg PO 1200,1800 [facility] Stop: 08/08/18 11:59 Last Admin: 07/09/18 17:09 Dose: 400 mg Documented by: Nitroglycerin (Nitrostat) 0.4 mg SL UD PRN PRN Reason: Chest Pain Stop: 08/08/18 00:55 Nystatin (Mycostatin) 1 appln EXT TID PRN PRN Reason: yeast infection Stop: 08/08/18 10:28 Last Admin: 07/14/18 09:43 Dose: 1 appln Documented by: Ondansetron HCl (Zofran) 4 mg IV Q6H PRN PRN Reason: Nausea Stop: 08/08/18 00:55 Polyethylene Glycol (Miralax Powder Packet) 17 gm PO DAILY@12 [facility] Stop: 08/13/18 11:59 Last Admin: 07/16/18 11:47 Dose: 17 gm Documented by: Potassium Chloride (Klor-Con M20) 20 meq PO DAILY@1200 [facility] Stop: 08/08/18 11:59 Last Admin: 07/09/18 11:57 Dose: 20 meq Documented by: Tamsulosin HCl (Flomax) 0.4 mg PO QPM [facility] Stop: 08/08/18 20:59 Last Admin: 07/16/18 21:14 Dose: 0.4 mg Documented by: Warfarin Sodium (Coumadin) 2.5 mg PO DAILY@1600 [facility] Stop: 08/11/18 15:59 Last Admin: 07/16/18 16:05 Dose: 2.5 mg Documented by: (1) Acute renal failure superimposed on stage 3 chronic kidney disease Acute renal failure type: unspecified Qualified Code(s): N17.9 - Acute kidney failure, unspecified; N18.3 - Chronic kidney disease, stage 3 (moderate) (2) Cellulitis Laterality: unspecified laterality Site of cellulitis: extremity Site of cellulitis of extremity: lower extremity Qualified Code(s): L03.119 - Cellulitis of unspecified part of limb
--- NOTE | 2018-07-17 11:30 | Cardiology Progress Note ---
Date of Service July 17, 2018 Assessment & Plan (1) Acute right heart failure: Transition patient to oral Lasix 40 mg daily. Below the knee compression stockings. Creatinine stable at 1.3. Cardiology will sign off. Please call with questions. (2) Hypertension: Lisinopril restarted with improved BP control. Restart Toprol-XL at reduced dose, 12.5 mg daily. (3) Atrial fibrillation: Sinus bradycardia on telemetry. INR therapeutic. Continue amiodarone. Will restart Toprol-XL at reduced dose. Subjective Patient seen and examined at the bedside. Lisinopril restarted 07/15. Blood pressure has improved. No dysrhythmias on telemetry. Bradycardic during presumed hours of sleep otherwise no symptomatic bradycardia or significant pauses recorded. Edema improved today. Byrd catheter removed. Patient offers no new concerns/complaints at this time. Review of Systems Review of Systems: All systems reviewed & are unremarkable except as noted in HPI & below Physical Exam Physical Exam: General: NAD, AAO x3, well nourished. Chronically ill. HEENT: Normocephalic. Atraumatic. Conjunctiva pink, no scleral icterus. Neck: No carotid bruits, the carotid upstrokes are brisk. No JVD. No HJR Heart: Regular normal S-1 and S-2 no S-3 or S-4 gallop. No murmurs or rub appreciated. PMI is not displaced. No RV heave. Lungs: Clear bilateral without rales , rhonchi, or wheeze. Abdomen: Normal bowel sounds. Soft. Nontender. No masses or organomegaly. No abdominal bruits. Extremities: + bilateral compression stockings below the knee. 1+ bilateral pretibial edema with stasis changes. Pul ses: radial=2/4. Neuro: Cranial nerves grossly intact. No focal motor deficit. Results & Data Vital Signs (Past 12 Hours) Vital Signs Temp Pulse Pulse Pulse Resp BP BP 07/17/18 09:00 58 L 07/17/18 06:59 36.7 C 56 L 20 138/52 L 07/17/18 04:00 36.3 C L 52 L 18 164/68 H 07/17/18 00:00 51 L Pulse Ox 07/17/18 09:00 07/17/18 06:59 93 07/17/18 04:00 97 07/17/18 00:00 Laboratory Results Laboratory Results - last 24 hr 07/17/18 07/17/18 05:57 05:57 PT 20.1 H INR 2.1 H Sodium 139 Potassium 4.4 Chloride 107 Carbon Dioxide 28 Anion Gap 5.0 BUN 25 H Creatinine 1.32 Est Cr Clr Drug Dosing 52.9 Est GFR ( Amer) 59.5 Est GFR (Non-Af Amer) 51.3 BUN/Creatinine Ratio 19.1 Glucose 91 Calcium 8.2 L
[2018-07-17] MEDS: POLYETHYLENE (MIRALAX) 17 GM PACK PO SCH (12:01)
[2018-07-17] MEDS: METOPROLOL SUCC 25MG EXT REL TAB PO SCH (12:07)
[2018-07-17] MEDS: WARFARIN SOD 2.5 MG TAB PO SCH (15:55)
[2018-07-17] MEDS: TAMSULOSIN HCL 0.4 MG CAP PO SCH (20:59)
[2018-07-17] MEDS: ACETAMINOPHEN 325 MG TAB PO PRN (20:59)
[2018-07-17] MEDS: ATORVASTATIN 20 MG TAB PO SCH (20:59)
[2018-07-18 06:10] LABS: Basophils # (auto) 0.02 K/uL (0-0.2); Basophils % (auto) 0.3 %; Eosinophils # (auto) 0.19 K/uL (0-0.5); Eosinophils % (auto) 3.2 %; Hemoglobin 12.2 g/dL (14.0-18.0); Immature Granulocytes # (auto) 0.03 K/uL (0.00-0.02); Immature Granulocytes % (auto) 0.5 %; Lymphocytes # (auto) 1.15 K/uL (1.2-3.4); Lymphocytes % (auto) 19.3 %; Mean Corpuscular Hgb Conc 33.9 g/dL (32-36); Mean Corpuscular Volume 87.8 fL (80-100); Mean Platelet Volume 9.7 fL (7.4-10.4); Monocytes # (auto) 0.81 K/uL (0.11-0.59); Monocytes % (auto) 13.6 %; Neutrophils # (auto) 3.77 K/uL (1.4-6.5); Neutrophils % (auto) 63.1 %; Platelet Count 202 K/uL (130-400); RDW Coefficient of Variation 14.5 % (11.5-14.5); RDW Standard Deviation 46.4 fL (36.4-46.3); White Blood Count 5.97 K/uL (4.8-10.8)
[2018-07-18 06:37] LABS: BUN Creatinine Ratio 18.2 (10-20); Calcium 8.1 mg/dl (8.5-10.1); Creatinine Clr Calc Pharmacy 49.5 ml/min; Est GFR (African American) 54.9; Est GFR (Non-African American) 47.4; Magnesium 2.1 mg/dl (1.8-2.4); Phosphorus 3.3 mg/dl (2.5-4.9); Potassium 4.4 mmol/L (3.5-5.1)
[2018-07-18] MEDS: FLUTICASONE PROPIONATE NA SPR 16 GM BTL SCH (08:09)
[2018-07-18] MEDS: CLOTRIMAZOLE 1% CR 15 GM TUBE EXT SCH (08:09)
[2018-07-18] MEDS: AMIODARONE 200 MG TAB PO SCH (08:12)
[2018-07-18] MEDS: LORazepam 0.5 MG TAB PO SCH (08:12)
[2018-07-18] MEDS: LISINOPRIL 40 MG TAB PO SCH (08:12)
[2018-07-18] MEDS: BENZONATATE 100 MG CAPSULE PO SCH ×2 (08:13→10:43)
[2018-07-18] MEDS: METOPROLOL SUCC 25MG EXT REL TAB PO SCH ×2 (08:13→10:42)
[2018-07-18] MEDS: FAMOTIDINE 20 MG TAB PO SCH (08:13)
[2018-07-18] MEDS ORDERED: FUROSEMIDE 40 MG TAB PO SCH (09:00)
[2018-07-18] MEDS: POLYETHYLENE (MIRALAX) 17 GM PACK PO SCH (10:43)
--- NOTE | 2018-07-18 11:34 | Hospitalist Progress Note ---
Date of Service July 18, 2018 Assessment & Plan (1) CHF (congestive heart failure): Presented with worsening lower extremity edema. Chest x-ray showed cardiomegaly, pulmonary vascular congestion, pulmonary edema. Pro-BNP was elevated @ 5692. Echo 04/06/17 demonstrated normal LVEF, aortic sclerosis without significant stenosis. Echo on 07/09/2018: Mild concentric LV hypertrophy, LV wall motion is normal, LV systolic function is normal with an EF of 55 to 60%, RV is normal in size, right ventricular systolic function is mild to moderately reduced, aortic valve sclerosis mild without significant stenosis, mild tricuspid regurgitation and grade 2 diastolic dysfunction Has been receiving IV furosemide with improvement, Creatinine has been normalized and lisinopril has been restarted Check f/u CXR 06/17; near complete resolution of the pulmonary edema. Trace bilateral effusions We will start his oral furosemide from tomorrow Creatinine is slightly up at 1.41 We will continue current dose of lisinopril and Lasix Monitor PRP/BMP as an outpatient (2) CAD (coronary artery disease): No anginal symptoms. Amlodipine stopped due to lower extremity edema. Continue metoprolol and statin. Dose has been adjusted due to bradycardia Beta-carrington has been decreased (3) Bradycardia: Asymptomatic. Metoprolol succinate dose decreased to 25 mg daily. As above (4) Paroxysmal A-fib: Continue amiodarone, metoprolol, warfarin. -Rate remains controlled and INR is therapeutic -Need to follow-up with coagulation clinic as an outpatient (5) Cerebrovascular disease: History of TIA. PAF. Continue warfarin and statin. (6) Hypertension: Systolic BP's running 140-160's. Metoprol succinate dose decreased due to bradycardia. Amlodipine stopped due to lower extremity edema. Blood pressure remains upper limit of normal (7) COPD (chronic obstructive pulmonary disease): Pulmonary status stable. Denies any shortness of breath and wheezing at rest (8) Acute renal failure superimposed on stage 3 chronic kidney disease: Received IV furosemide for CHF. Serum creatinine jamarcus from 1.61 to 2.01. Furosemide held. Lisinopril held. Creatinine normalized and lisinopril was restarted With close management of PFP has an outpatient (9) Cellulitis: Lower extremity erythema- cellulitis vs venous stasis dermatitis. Received doxycycline x 5 days. Cellulitis is improved No evidence of leg cellulitis (10) Venous stasis ulcers of both lower extremities: Management per [facility]. (11) DVT prophylaxis: Continue warfarin. (12) Discharge planning issues: Anticipated discharge to home with services. Family Medicine follow-up with Dr. Roldan. Cardiology follow-up with Dr. Soria. Will need CHF instructions and f/u BMP + Mg in 1 week. He will need to have a referral to lymphedema clinic through his primary care doc on discharge Subjective 07/17 The patient was seen and examined in medical telemetry unit This is a 78-year-old male with past medical history significant for hyperlipidemia, COPD, moderate, chronic sinusitis, paroxysmal atrial fibrillation, chronic diastolic heart failure, dilatation of thoracic aorta, lower extremity venous i nsufficiency,diverticulosis of colon, GERD, BPH, history of lower extremity ulcers,history of peripheral neuropathy, generalized anxiety disorder, status post ascending aortic aneurysm repair, history of TIA, presented with worsening lower extremity edema Has been feeling a lot better since admission Edema has gone down and a scrotal edema has gone down too Denies any chest pain and/or shortness of breath 07/18 Patient was seen and examined in medical telemetry unit He has been feeling a lot better and does not have any significant symptoms He is worried about the same leg edema Kidney function remains stable and chest x-ray shows clearance of pulmonary edema Review of Systems Review of Systems: All systems reviewed and are unremarkable except as noted below Respiratory: + dyspnea on exertion; no wheezing Cardiovascular: + edema (1+ edema bilaterally seems to be chronic) Physical Exam Physical Exam: No apparent distress at rest Constitutional: well nourished; no acute distress Eyes: PERRL, conjunctivae normal, anicteric sclerae ENMT: external ear and nose normal, oropharynx normal Neck: trachea midline, no thyromegaly Respiratory: normal respiratory effort; no respiratory distress Auscultation: + diminished lung sounds and + crackles (few bibasilar) Cardiovascular: Rate/Rhythm: regular rate, regular rhythm and + bradycardic Heart Sounds: + murmur (II/ sys murmur at base); no gallop and no cardiac rub Vessels: no JVD Extremities: + pedal edema and + edema (trace pretibial edema, 1+ pedal edema); no calf tenderness Gastrointestinal (Abdomen): normal bowel sounds, soft, nontender, no hepatosplenomegaly Inspection/Auscultation: + abdomen distended and normal bowel sounds Percussion/Palpation: abdomen soft; abdomen nontender Musculoskeletal: Extremities: + extremities abnormal to inspection (TEDS applied) Skin: no rashes, warm and dry Neurologic: PERRL, EOMI, accommodation nl, no face palsy, no dysarthria Psychiatric: A+Ox3, euthymic affect Orientation: alert and oriented x 3 Genitourinary: + penis abnormality (Byrd cath) and + scrotal swelling Lymphatic: no cervical or axillary lymphadenopathy Results & Data Vital Signs (Past 12 Hours) Vital Signs Temp Pulse Pulse Pulse Resp BP BP 07/18/18 10:42 53 L 07/18/18 10:39 36.5 C 50 L 20 156/58 H 07/18/18 08:11 55 L 07/18/18 08:03 164/59 H 07/18/18 07:36 51 L 07/18/18 07:35 36.7 C 51 L 18 182/69 H 177/74 H 07/18/18 04:00 36.5 C 53 L 20 157/58 H 07/18/18 00:00 51 L 07/17/18 23:54 36.6 C 56 L 18 153/68 H Pulse Ox 07/18/18 10:42 07/18/18 10:39 96 07/18/18 08:11 93 07/18/18 08:03 07/18/18 07:36 07/18/18 07:35 97 07/18/18 04:00 96 07/18/18 00:00 07/17/18 23:54 92 Laboratory Results Short CBC 07/18/18 Range/Units 05:37 WBC 5.97 (4.8-10.8) K/uL Hgb 12.2 L (14.0-18.0) g/dL Hct 36.0 L (42-52) % Plt Count 202 (130-400) K/uL BMP 07/18/18 05:37 Sodium 136 Potassium 4.4 Chloride 105 Carbon Dioxide 28 BUN 26 H Creatinine 1.41 H Glucose 93 Calcium 8.1 L Medications Administered Current Inpatient Medications Acetaminophen (Tylenol) 650 mg PO Q4H PRN PRN Reason: Pain or Fever Stop: 08/08/18 00:55 Last Admin: 07/17/18 20:59 Dose: 650 mg Documented by: Amiodarone HCl (Cordarone) 200 mg PO QAM [facility] Stop: 08/08/18 08:59 Last Admin: 07/18/18 08:12 Dose: 200 mg Documented by: Atorvastatin Calcium (Lipitor) 20 mg PO DAILY@1900 [facility] Stop: 08/10/18 18:59 Last Admin: 07/17/18 20:59 Dose: 20 mg Documented by: Benzonatate (Tessalon Perle) 100 mg PO TID [facility] Stop: 08/08/18 19:14 Last Admin: 07/18/18 10:43 Dose: Not Given Documented by: Clotrimazole (Lotrimin 1%) 1 appln EXT BID [facility] Stop: 08/08/18 08:59 Last Admin: 07/18/18 08:09 Dose: Not Given Documented by: Famotidine (Pepcid) 20 mg PO BID [facility] Stop: 08/08/18 10:29 Last Admin: 07/18/18 08:13 Dose: 20 mg Documented by: Fluticasone Propionate (Flonase) 1 sprays NA BID [facility] Stop: 08/08/18 11:59 Last Admin: 07/18/18 08:09 Dose: Not Given Documented by: Furosemide (Lasix) 40 mg PO [facility] Stop: 08/17/18 08:59 Last Admin: 07/18/18 08:12 Dose: 40 mg Documented by: Lisinopril (Zestril) 40 mg PO QAM [facility] Stop: 08/09/18 08:59 Last Admin: 07/18/18 08:12 Dose: 40 mg Documented by: [facility] ([facility]) [facility] [place] Stop: 08/09/18 08:59 Last Admin: 07/18/18 08:12 Dose: 0.5 mg Documented by: Magnesium Oxide (Mag-Ox) 400 mg PO 1200,1800 [facility] Stop: 08/08/18 11:59 Last Admin: 07/09/18 17:09 Dose: 400 mg Documented by: Metoprolol Succinate (Toprol Xl) 12.5 mg PO QAM [facility] Stop: 08/16/18 11:29 Last Admin: 07/18/18 10:42 Dose: 12.5 mg Documented by: Nitroglycerin (Nitrostat) 0.4 mg SL UD PRN PRN Reason: Chest Pain Stop: 08/08/18 00:55 Nystatin (Mycostatin) 1 appln EXT TID PRN PRN Reason: yeast infection Stop: 08/08/18 10:28 Last Admin: 07/14/18 09:43 Dose: 1 appln Documented by: Ondansetron HCl (Zofran) 4 mg IV Q6H PRN PRN Reason: Nausea Stop: 08/08/18 00:55 Polyethylene Glycol (Miralax Powder Packet) 17 gm PO DAILY@12 [facility] Stop: 08/13/18 11:59 Last Admin: 07/18/18 10:43 Dose: 17 gm Documented by: Potassium Chloride (Klor-Con M20) 20 meq PO DAILY@1200 [facility] Stop: 08/08/18 11:59 Last Admin: 07/09/18 11:57 Dose: 20 meq Documented by: Tamsulosin HCl (Flomax) 0.4 mg PO QPM [facility] Stop: 08/08/18 20:59 Last Admin: 07/17/18 20:59 Dose: 0.4 mg Documented by: Warfarin Sodium (Coumadin) 2.5 mg PO DAILY@1600 [facility] Stop: 08/11/18 15:59 Last Admin: 07/17/18 15:55 Dose: 2.5 mg Documented by: (1) Acute renal failure superimposed on stage 3 chronic kidney disease Acute renal failure type: unspecified Qualified Code(s): N17.9 - Acute kidney failure, unspecified; N18.3 - Chronic kidney disease, stage 3 (moderate) (2) Cellulitis Laterality: unspecified laterality Site of cellulitis: extremity Site of cellulitis of extremity: lower extremity Qualified Code(s): L03.119 - Cellulitis of unspecified part of limb
--- NOTE | 2018-07-19 08:42 | Discharge Summary ---
Date of Service July 19, 2018 Admission HPI Per Admitting Provider DICTATED BY: Donavon Salcido MD DATE OF ADMISSION: 07/08/2018 CHIEF COMPLAINT: Lower extremity edema. HISTORY OF PRESENT ILLNESS: This is a 78-year-old male with past medical history significant for hyperlipidemia, COPD, moderate, chronic sinusitis, history of paroxysmal atrial fibrillation, chronic diastolic heart failure, dilatation of thoracic aorta, lower extremity venous insufficiency, diverticulosis of colon, GERD, BPH, history of lower extremity ulcers, that has healed, history of peripheral neuropathy, generalized anxiety disorder, status post ascending aortic aneurysm repair, history of TIA, presents with worsening lower extremity edema. He went to 1 year followup visit with the cardiology clinic today and has a lot of scrotal edema and lower extremity edema and weight gain of 18 pounds in last 6 weeks. Reports is also having difficulty urinating. He is only dripping urine, he is on Lasix. Denies any shortness of breath, fever or cough. Has occasional headaches, no blurred vision. Appetite is good. He had some difficulty swallowing pills, has to drink a lot of water for swallowing the pills. No nausea, no abdominal pain. Normal bowel movements. He has history of ulcers in the lower extremities, used to go to wound clinic but they healed up.Patient is worried about his scrotal edema and worsening lower extremity edema. Currently, resting comfortable and hemodynamically stable. Admission Exam Per Admitting Provider GENERAL: The patient is of moderate build, not in acute distress. VITAL SIGNS: Temperature 37.1, respiratory rate 18, pulse 77, blood pressure 96/70, oxygen 94% on room air. HEENT: No pallor, no icterus. Pupils equal, round, reactive to light. NECK: No JVD, no neck masses, no carotid bruits. CARDIOVASCULAR: S1, S2 heard, regular rate and rhythm, no murmur, no gallop. RESPIRATORY SYSTEM: Normal AP diameter. No accessory muscle use. No wheezing, no crackles. ABDOMEN: Soft, bowel sounds present. Nontender. No distention. CENTRAL NERVOUS SYSTEM: Cranial nerves II-XII grossly intact, nonfocal. EXTREMITIES: Bilateral lower extremity edema seen. Chronic skin changes seen, slightly warm and erythematous and swollen, scrotal edema seen and also erythematous rash seen in the groins and groin areas wet. Principal Diagnosis Acute Diastolic Heart Failure,Atrial Fibrillation,Bradycardia Discharge Exam Constitutional well nourished; no acute distress Eyes PERRL, conjunctivae normal, anicteric sclerae ENMT external ear and nose normal, oropharynx normal Neck trachea midline, no thyromegaly Respiratory normal respiratory effort; no respiratory distress Auscultation: + diminished lung sounds and + crackles (few bibasilar) Cardiovascular Rate/Rhythm: regular rate, regular rhythm and + bradycardic Heart Sounds: + murmur (II/ sys murmur at base); no gallop and no cardiac rub Vessels: no JVD Extremities: + pedal edema and + edema (trace pretibial edema, 1+ pedal edema); no calf tenderness Gastrointestinal (Abdomen) normal bowel sounds, soft, nontender, no hepatosplenomegaly Inspection/Auscultation: + abdomen distended and normal bowel sounds Percussion/Palpation: abdomen soft; abdomen nontender Musculoskeletal Extremities: + extremities abnormal to inspection (TEDS applied) Skin no rashes, warm and dry Neurologic PERRL, EOMI, accommodation nl, no face palsy, no dysarthria Psychiatric A+Ox3, euthymic affect Orientation: alert and oriented x 3 Genitourinary + penis abnormality (Byrd cath) and + scrotal swelling Lymphatic no cervical or axillary lymphadenopathy Discharge Data Allergies Allergy/AdvReac Type Severity Reaction Status Date / Time guaifenesin AdvReac Unknown GETS Verified 07/08/18 23:52 REALLY SICK FROM MUCINEX Consultations 07/08/18 21:31 ED Decision to Admit Stat 07/09/18 00:56 Consult Case Management - Discharge Planning Routine 07/09/18 08:00 Consult Cardiology Routine Ordered Studies 07/08/18 19:08 CT pelvis w/IV con only Stat Hospital Course (1) CHF (congestive heart failure): Presented with worsening lower extremity edema. Chest x-ray showed cardiomegaly, pulmonary vascular congestion, pulmonary edema. Pro-BNP was elevated @ 5692. Echo 04/06/17 demonstrated normal LVEF, aortic sclerosis without significant stenosis. Echo on 07/09/2018: Mild concentric LV hypertrophy, LV wall motion is normal, LV systolic function is normal with an EF of 55 to 60%, RV is normal in size, right ventricular systolic function is mild to moderately reduced, aortic valve sclerosis mild without significant stenosis, mild tricuspid regurgitation and grade 2 diastolic dysfunction Has been receiving IV furosemide with improvement, Creatinine has been normalized and lisinopril has been restarted Check f/u CXR 06/17; near complete resolution of the pulmonary edema. Trace bilateral effusions We will start his oral furosemide from tomorrow Creatinine is slightly up at 1.41 We will continue current dose of lisinopril and Lasix Monitor PRP/BMP as an outpatient (2) CAD (coronary artery disease): No anginal symptoms. Amlodipine stopped due to lower extremity edema. Continue metoprolol and statin. Dose has been adjusted due to bradycardia Beta-carrington has been decreased (3) Bradycardia: Asymptomatic. Metoprolol succinate dose decreased to 25 mg daily. As above (4) Paroxysmal A-fib: Continue amiodarone, metoprolol, warfarin. -Rate remains controlled and INR is therapeutic -Need to follow-up with coagulation clinic as an outpatient (5) Cerebrovascular disease: History of TIA. PAF. Continue warfarin and statin. (6) Hypertension: Systolic BP's running 140-160's. Metoprol succinate dose decreased due to bradycardia. Amlodipine stopped due to lower extremity edema. Blood pressure remains upper limit of normal (7) COPD (chronic obstructive pulmonary disease): Pulmonary status stable. Denies any shortness of breath and wheezing at rest (8) Acute renal failure superimposed on stage 3 chronic kidney disease: Received IV furosemide for CHF. Serum creatinine jamarcus from 1.61 to 2.01. Furosemide held. Lisinopril held. Creatinine normalized and lisinopril was restarted With close management of PFP has an outpatient (9) Cellulitis: Lower extremity erythema- cellulitis vs venous stasis dermatitis. Received doxycycline x 5 days. Cellulitis is improved No evidence of leg cellulitis (10) Venous stasis ulcers of both lower extremities: Management per Wound Clinic. (11) DVT prophylaxis: Continue warfarin. (12) Discharge planning issues: Anticipated discharge to home with services. Family Medicine follow-up with Dr. Roldan. Cardiology follow-up with Dr. Soria. Will need CHF instructions and f/u BMP + Mg in 1 week. He will need to have a referral to lymphedema clinic through his primary care doc on discharge Total Time Total Time Spent Total Time Spent (In Minutes): 40 minutes Total Time Includes: Examination of the Patient, Discharge Planning, Medication Reconciliation and Communication With Other Providers Discharge Plan Discharge Items Patient Disposition: Home - Home Health Services Reason For Visit: LOWER EXT EDEMA Discharge Diagnosis: Acute Diastolic Heart Failure,Atrial Fibrillation,Bradycardia Condition: Fair Discharge Goals: Decrease discomfort and Improve function Activity: Resume your previous activity Non-emergency contact: Primary Care Provider Call non-emergency contact if: you have any medication questions and your symptoms worsen Follow-up/Referrals: Earle Soria DO [Physician] - 08/09/18 9:45 am Olaf Roldan MD [Primary Care Provider] - (Keep your appointment on [address] Roldan and the coagulation clinic. The patient may be benefited from referral to Lymphedema clinic ) Diet: Heart Healthy Fluids: 1500ml (6 cups) Other Ambulatory Orders: Basic Metabolic Panel (Routine) Timeframe: 3 Days Location: Determined by Patient Ordered By: Yue Addison Magnesium (Routine) Timeframe: 3 Days Location: Determined by Patient Ordered By: Yue Addison Addtl Provider Instructions: Call 911 and go to the Emergency Room if: * You have tightness or pain in your chest that does not go away with rest or Nitroglycerin * You are very short of breath even with rest Call your doctor if any of the following symptoms or problems start or get worse: * Shortness of breath or difficulty breathing * Wake up at night short of breath * Chest pain * Cough * Swelling of your hands, fee, or legs * More fatigued or tired with your normal activity * Palpitations - sudden fast heart beats WEIGHT * Weigh yourself every morning after using the bathroom. * Use the same scale. * Wear the same amount of clothing. * Write your weight down on your chart. * Call your doctor if you gain more than 2-3 pounds in 1-2 days. MEDICATIONS * Use this discharge instruction sheet for instructions. * Take your medications at the time your doctor ordered. * Do not skip a dose of your medicines. * If you miss a dose of medicine, take as soon as possible, but DO NOT DOUBLE A DOSE. * Read your medicine information when you get home. * Know all of the side effects of your medicine. * Call your doctor's office if you have any side effects. * Be sure all of your doctors know what medicine and herbs you take (including cold, flu, and herbal medicine). * Pain Medicine: If you do not get relief from your pain, please call your doctor for help. Take the following with you to your follow-up doctor appointments: * Weight Chart * Medication List * List of questions Do not drink excessive alcohol, beer or wine. Please take precaution to avoid fall Prescriptions: New metoprolol succinate 25 mg Tablet Extended Release 24 Hr 12.5 mg PO QAM 30 Days Qty: 15 RF: 0 Continued amiodarone 200 mg tablet 200 mg PO QAM RF: 0 atorvastatin 20 mg tablet 20 mg PO QPM RF: 0 docusate sodium 100 mg capsule 100 mg PO QPM RF: 0 famotidine 20 mg tablet 20 mg PO AMPM RF: 0 fluticasone propionate 100 mcg/actuation blister with device 2 inha INH AMPM RF: 0 lisinopril 40 mg tablet 40 mg PO QAM RF: 0 lorazepam 0.5 mg tablet 0.5 mg PO QAM RF: 0 magnesium oxide 400 mg magnesium tablet 400 mg PO BID RF: 0 polyethylene glycol 3350 [Miralax] 17 gram/dose powder 17 gm PO DAILY RF: 0 tamsulosin [Flomax] 0.4 mg capsule 0.4 mg PO QPM RF: 0 furosemide 40 mg tablet 40 mg PO QAM RF: 0 nystatin [Nystop] 100,000 unit/gram Powder 1 applic TOPICAL TID PRN (Reason: yeast infection) RF: 0 benzonatate 100 mg capsule 100 mg PO TID PRN (Reason: Cough) RF: 0 Changed warfarin 5 mg tablet 2.5 mg PO QPM Qty: 0 RF: 0 potassium chloride [Klor-Con M20] 20 mEq tablet,ER particles/crystals 10 meq PO .DAILY AT NOON Qty: 0 RF: 0 Discontinued amlodipine 5 mg tablet 5 mg PO QAM RF: 0 metoprolol succinate 50 mg tablet extended release 24 hr 50 mg PO DAILY RF: 0 Stand-Alone Forms: [facility] Discharge Orders: Discharge Order (Routine); Ordered 07/18/18 Ordered By: Yue Addison Admission Data Admit Date/Time: 07/08/18 23:14 Attending Provider: Yue Addison Admit Provider: Donavon Salcido Primary Care Provider: Olaf Roldan Other Providers: Donavon Salcido ; Earle Soria ; Davidson Erickson ; Archie Ceron ; Nilay Leyva ; Raymond Kang ; Moreno Cerda ; Janneth Cordova ; Jodi Acosta ; Basilia Harrington ; Kadi Boss Service: Telemetry Medical Other Interventions: Discharge Summary Assessment (RN) Last Done: 07/18/18 13:37 DC Date/Time DO NOT enter until pt leaves facility: 07/18/18 14:43
== END 2018-07-18 14:43 | disposition home health service (06) | DRG 291 ==
LOC: ED 18:03 → 2N 23:14 → SUATTDRO 23:14 → 2N 07-09 00:08

== ENCOUNTER 2019-09-30 10:45 | Inpatient (IN) ==
[2019-09-30] MEDS ORDERED: SODIUM CHLORIDE 0.9% 500 ML IV SCH (11:30)
--- NOTE | 2019-09-30 11:58 | CT Scan Report ---
CT OF THE HEAD WITHOUT CONTRAST CLINICAL HISTORY: fall, confusion, on warfarin COMPARISON STUDY: MRI of the brain 04/11/2017. TECHNIQUE: Helical axial images of the head were obtained without IV contrast. Automated exposure con trol was utilized for the study. A dose lowering technique was utilized adhering to the principles o f ALARA. FINDINGS: No acute intracranial hemorrhage, midline shift or mass effect is present. Mild ventricular dilatation is unchanged. The basilar cisterns are patent. No extra-axial collections are present. Th ere are no findings to suggest acute dural sinus thrombosis or acute territorial infarct. No signific ant calvarial abnormalities are present. Visualized portions of the sinuses and mastoid air cells are clear. IMPRESSION: 1. No acute intracranial findings. No change in mild ventricular dilatation since MRI of April 11, 2017. This likely due to atrophy. 2. No calvarial fracture. ACT 112: Negative or not required by law. Electronically signed by: Tyron Chavez M.D. 09/30/2019 11:57 AM
--- NOTE | 2019-09-30 12:01 | CT Scan Report ---
CT cervical spine wo con CT DOSE: 1057.75 mGy.cm HISTORY: Trauma. Pain. fall, pain TECHNIQUE: Multiaxial CT images of the cervical spine were performed and reformatted in the sagittal and coronal plane without the use of contrast. A dose lowering technique was utilized adhering to th e principles of ALARA. COMPARISON: None. FINDINGS: No fractures. No subluxation. Prevertebral soft tissues and the C1-C2 interval are intact. No pneumothorax. Mild to moderate degenerative disc change. Physiologic partial subluxation C2 on C3. IMPRESSION: No fractures within the cervical spine. Moderate degenerative change. No acute process. ACT 112: Negative or not required by law. The above report was generated using voice recognition software. It may contain grammatical, syntax or spelling errors. Electronically signed by: Moreno Cotto M.D. 09/30/2019 11:59 AM
[2019-09-30 12:15] LABS: Basophils # (auto) 0.01 K/uL (0-0.2); Basophils % (auto) 0.1 %; Eosinophils # (auto) 0.02 K/uL (0-0.5); Eosinophils % (auto) 0.2 %; Hematocrit (blood only) 35.2 % (42-52); Hemoglobin 11.8 g/dL (14.0-18.0); Immature Granulocytes # (auto) 0.03 K/uL (0.00-0.02); Immature Granulocytes % (auto) 0.3 %; Lymphocytes # (auto) 0.38 K/uL (1.2-3.4); Lymphocytes % (auto) 3.8 %; Mean Corpuscular Hemoglobin 30.6 pg (25-34); Mean Corpuscular Hgb Conc 33.5 g/dL (32-36); Mean Corpuscular Volume 91.2 fL (80-100); Mean Platelet Volume 10.2 fL (7.4-10.4); Monocytes # (auto) 1.16 K/uL (0.11-0.59); Monocytes % (auto) 11.7 %; Neutrophils % (auto) 83.9 %; Platelet Count 134 K/uL (130-400); RDW Coefficient of Variation 13.7 % (11.5-14.5); RDW Standard Deviation 45.7 fL (36.4-46.3); Red Blood Count 3.86 M/uL (4.7-6.1)
[2019-09-30 12:24] LABS: Prothrombin Time 29.9 Seconds (9.0-12.0)
--- NOTE | 2019-09-30 12:27 | XRay Report ---
XR chest 1V portable CLINICAL HISTORY: weakness COMPARISON STUDY: 07/17/2018 FINDINGS: The heart is mildly enlarged. There are postsurgical changes of midline sternotomy. There i s aortic tortuosity/ectasia with aortic calcification. There is no failure. There is no focal pulmona ry consolidation. There are no pleural effusions.[ IMPRESSION: No active disease in the chest. ACT 112: Negative or not required by law. Electronically signed by: Brijesh Zamora M.D. 09/30/2019 12:26 PM
[2019-09-30 12:29] LABS: Alanine Aminotransferase 30 U/L (12-78); Albumin Level 3.7 gm/dl (3.4-5.0); Aspartate Aminotransferase 27 U/L (15-37); BUN Creatinine Ratio 18.8 (10-20); Blood Urea Nitrogen 29 mg/dl (7-18); Calcium 8.7 mg/dl (8.5-10.1); Carbon Dioxide 26 mmol/L (21-32); Chloride 108 mmol/L (98-107); Creatinine Clr Calc Pharmacy 45.5 ml/min; Est GFR (African American) 49.4; Est GFR (Non-African American) 42.6; Glucose 86 mg/dl (70-99); Potassium 4.6 mmol/L (3.5-5.1); Sodium 139 mmol/L (136-145)
[2019-09-30 12:39] LABS: Albumin Globulin Ratio 1.1 (0.9-2); Alkaline Phosphatase 94 U/L (45-117); Bilirubin,Total 0.9 mg/dl (0.2-1); Creatine Kinase 195 U/L (39-308); Globulin 3.3 gm/dl (2.5-4.0); Thyroid Stimulating Hormone 0.664 uIu/ml (0.300-4.500); Troponin I < 0.015 ng/ml (0-0.045)
[2019-09-30 13:10] LABS: Appearance Urine Clear (Clear); Bacteria Urine Automated Negative (Negative); Bilirubin Urine Negative (Negative); Blood Urine 1+ (Negative); Color Urine Yellow; Glucose Urine UA Negative (Negative); Ketones Urine Trace (Negative); Leukocyte Esterase Urine Negative (Negative); Nitrite Urine Negative (Negative); Protein Urine 1+ (Negative); Specific Gravity Urine 1.018 (1.000-1.030); Urobilinogen Urine Negative (Negative)
--- NOTE | 2019-09-30 13:10 | Emergency Department Note ---
History of Present Illness General Chief complaint: Fall Stated complaint: fall/ eval Time Seen by Provider: 09/30/19 11:21 Source: patient Mode of arrival: EMS Limitations: altered mental status History of Present Illness Provider complaint: Fall, confusion Maximum Pain Intensity: 5 This is a 79-year-old male who presents to the ED with a chief complaint of a fall. The patient seems to be confused as well. He reportedly lives in his own residence and has a home health worker provide some care 3 times a day. The patient was transported here by ambulance because of confusion and a fall. The patient is a poor historian. He does have some baseline confusion with asking questions and seems to be not able to stay on point. He thinks that his mother is still alive and is in her 80s. The patient has no other specific complaints other than some neck pain with movement. Home Medications Home Medications Medication Instructions Recorded Confirmed Type amiodarone 200 mg tablet 200 mg PO QAM 05/22/18 09/30/19 History atorvastatin 20 mg tablet 20 mg PO QPM 05/22/18 09/30/19 History famotidine 20 mg tablet 20 mg PO AMPM tab 05/22/18 09/30/19 History fluticasone propionate 100 2 inha INH AMPM PRN ea 05/22/18 09/30/19 History mcg/actuation blister powder for inhalation lisinopril 40 mg tablet 40 mg PO QAM 05/22/18 09/30/19 History lorazepam 0.5 mg tablet 0.5 mg PO BID PRN tab 05/22/18 09/30/19 History magnesium oxide 400 mg PO BID 05/22/18 09/30/19 History amlodipine 2.5 mg PO DAILY 03/12/19 09/30/19 History doxazosin 1 mg PO HS 03/12/19 09/30/19 History metoprolol succinate 12.5 mg PO DAILY 03/12/19 09/30/19 History warfarin 2.5 mg PO UD 03/12/19 09/30/19 History warfarin 5 mg PO UD 03/12/19 09/30/19 History furosemide 40 mg PO DAILY 09/30/19 09/30/19 History Allergies Allergy/AdvReac Type Severity Reaction Status Date / Time guaifenesin AdvReac Unknown GETS Verified 09/30/19 11:52 REALLY SICK FROM MUCINEX Past Med/Surg History Medical History A-fib (Chronic) Anxiety (Chronic) Aortic aneurysm (Resolved) COPD (chronic obstructive pulmonary disease) (Chronic) Dyslipidemia (Chronic) GERD (gastroesophageal reflux disease) (Chronic) HTN (hypertension) (Chronic) Hypertension (Chronic) Sinusitis (Chronic) TIA (transient ischemic attack) (Chronic) Venous insufficiency (Chronic) Surgical History Knee joint replacement status (Resolved) Family History Other Family history non-contributory Social History Smoking Status: Former smoker Second Hand Exposure: No; Hx Alcohol Use: Yes Alcohol type: beer and wine Hx Substance Use: No Preferred Language: Faroese Communication Ability: Effective Visual Impairment: Limited Hearing Ability: Hard of Hearing [employer]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 Beliefs That Will Affect Care: None marital status: Current Living Situation: Alone Current Living Situation Comment: in apartment current occupational status: retired Feels Safe at Home: Yes Review of Systems A total of 10 systems reviewed and were otherwise negative Physical Exam Vital Signs Vital Signs - 24 hr 09/30/19 11:01 09/30/19 11:03 09/30/19 11:04 Temperature Temperature Source Pulse Rate 54 L 51 L 49 L Pulse Rate from SpO2 Sensor 54 L 52 L 50 L Respiratory Rate 14 16 20 Respiratory Effort / Characteristics Respiratory Depth Respiratory Pattern Blood Pressure 166/56 H 161/56 H Blood Pressure Mean 89 74 Pulse Oximetry 96 96 96 Oxygen Delivery Method Sepsis Recent Fever Within 48 Hours Sepsis New/Unexplained Change in Mental Status Sepsis Action Taken by Nursing 09/30/19 11:07 09/30/19 11:30 09/30/19 11:35 Temperature 36.4 C L Temperature Source Oral Pulse Rate 53 L 51 L 51 L Pulse Rate from SpO2 Sensor 51 L Respiratory Rate 20 20 20 Respiratory Effort / Characteristics Non-Labored Spontaneous Respiratory Depth Normal Respiratory Pattern Regular Blood Pressure 161/56 H 154/62 H Blood Pressure Mean 91 120 Pulse Oximetry 96 97 96 Oxygen Delivery Method Room Air Room Air Sepsis Recent Fever Within 48 Hours No Sepsis New/Unexplained Change in Mental Status No Sepsis Action Taken by Nursing No Action Required 09/30/19 12:05 09/30/19 12:30 09/30/19 13:00 Temperature Temperature Source Pulse Rate 57 L 57 L 57 L Pulse Rate from SpO2 Sensor Respiratory Rate 18 14 17 Respiratory Effort / Characteristics Respiratory Depth Respiratory Pattern Blood Pressure 171/59 H 175/63 H 179/60 H Blood Pressure Mean 103 77 107 Pulse Oximetry 97 96 Oxygen Delivery Method Sepsis Recent Fever Within 48 Hours Sepsis New/Unexplained Change in Mental Status Sepsis Action Taken by Nursing 09/30/19 13:30 09/30/19 13:31 Temperature Temperature Source Pulse Rate 60 62 Pulse Rate from SpO2 Sensor Respiratory Rate 20 19 Respiratory Effort / Characteristics Respiratory Depth Respiratory Pattern Blood Pressure 171/87 H Blood Pressure Mean 90 Pulse Oximetry 97 Oxygen Delivery Method Sepsis Recent Fever Within 48 Hours Sepsis New/Unexplained Change in Mental Status Sepsis Action Taken by Nursing CONSTITUTIONAL/VITAL SIGNS: Reviewed / noted above. GENERAL: Non-toxic in appearance. INTEGUMENTARY: Warm, dry, and [place]. HEAD: Normocephalic. EYES: without scleral icterus or trauma. ENT/OROPHARYNX: clear and moist. LYMPHADENOPATHY/NECK: Is supple without lymphadenopathy or meningismus. RESPIRATORY: Lungs clear and equal. CARDIOVASCULAR: Regular rate and rhythm. GI/ABDOMEN: Soft and nontender. No organomegaly or pulsatile mass. No rebound or guarding. Normal bowel sounds. EXTREMITIES: Warm and well perfused. BACK: No CVA tenderness. NEUROLOGICAL: Intact without focal deficits. Patient does appear to be confused at times during the conversation. PSYCHIATRIC: normal affect. MUSCULOSKELETAL: Normally developed with good muscle tone. TRIAGE NURSING DOCUMENTATION REVIEWED. Course Administered Medications Discontinued Medications Sodium Chloride (Nss) 500 mls @ 999 mls/hr IV .Q31M IRAM Stop: 09/30/19 12:00 Last Infusion: 09/30/19 12:55 Dose: 0 mls/hr Documented by: [id number] Admin: 09/30/19 12:12 Dose: 999 mls/hr Documented by: [id number] Medical Decision Making Differential Diagnosis Differential includes acute coronary syndrome, myocardial infarction, CVA, TIA, anemia, infection, pneumonia, UTI, pyelonephritis, poor nutrition, dehydration, electrolyte disturbance,hypoglycemia. Medical Records Attestation: I reviewed the patient's medical records. Home Medications Current Medication List: was personally reviewed by me Laboratory Data Attestation: I reviewed the patient's lab results. Result diagrams: 09/30/19 12:04 09/30/19 12:04 Lab Results 09/30/19 09/30/19 09/30/19 Range/Units 12:04 12:04 12:04 WBC 9.90 (4.8-10.8) K/uL RBC 3.86 L (4.7-6.1) M/uL Hgb 11.8 L (14.0-18.0) g/dL Hct 35.2 L (42-52) % MCV 91.2 (80-100) fL MCH 30.6 (25-34) pg MCHC 33.5 (32-36) g/dL RDW Std Deviation 45.7 (36.4-46.3) fL RDW Coeff of [place] 13.7 (11.5-14.5) % Plt Count 134 (130-400) K/uL MPV 10.2 (7.4-10.4) fL Immature Gran % (Auto) 0.3 % Neut % (Auto) 83.9 % Lymph % (Auto) 3.8 % [place] % (Auto) 11.7 % Eos % (Auto) 0.2 % Baso % (Auto) 0.1 % Neut # (Auto) 8.30 H (1.4-6.5) K/uL Lymph # (Auto) 0.38 L (1.2-3.4) K/uL [place] # (Auto) 1.16 H (0.11-0.59) K/uL Eos # (Auto) 0.02 (0-0.5) K/uL Baso # (Auto) 0.01 (0-0.2) K/uL Immature Gran # (Auto) 0.03 H (0.00-0.02) K/uL PT 29.9 H (9.0-12.0) Seconds INR 3.0 H (0.9-1.1) Sodium 139 (136-145) mmol/L Potassium 4.6 (3.5-5.1) mmol/L Chloride 108 H (98-107) mmol/L Carbon Dioxide 26 (21-32) mmol/L Anion Gap 5.0 (3-11) BUN 29 H (7-18) mg/dl Creatinine 1.53 H (0.6-1.4) mg/dl Est Cr Clr Drug Dosing 45.5 ml/min Est GFR ( Amer) 49.4 Est GFR (Non-Af Amer) 42.6 BUN/Creatinine Ratio 18.8 (10-20) Glucose 86 (70-99) mg/dl Calcium 8.7 (8.5-10.1) mg/dl Total Bilirubin 0.9 (0.2-1) mg/dl AST 27 (15-37) U/L ALT 30 (12-78) U/L Alkaline Phosphatase 94 (45-117) U/L Total Creatine Kinase 195 (39-308) U/L Troponin I < 0.015 (0-0.045) ng/ml Total Protein 7.0 (6.4-8.2) gm/dl Albumin 3.7 (3.4-5.0) gm/dl Globulin 3.3 (2.5-4.0) gm/dl Albumin/Globulin Ratio 1.1 (0.9-2) TSH 0.664 (0.300-4.500) uIu/ml Urine Color Urine Appearance (Clear) Urine pH (4.5-7.5) Ur Specific [place] (1.000-1.030) Urine Protein (Negative) Urine Glucose (UA) (Negative) Urine Ketones (Negative) Urine Blood (Negative) Urine Nitrite (Negative) Urine Bilirubin (Negative) Urine Urobilinogen (Negative) Ur Leukocyte Esterase (Negative) Urine WBC (Auto) (0-5) /hpf Urine RBC (Auto) (0-4) /hpf U Hyaline Cast (Auto) (0-5) /lpf U Epithel Cells (Auto) (0-5) /lpf Urine Bacteria (Auto) (Negative) 09/30/19 Range/Units 12:53 WBC (4.8-10.8) K/uL RBC (4.7-6.1) M/uL Hgb (14.0-18.0) g/dL Hct (42-52) % MCV (80-100) fL MCH (25-34) pg MCHC (32-36) g/dL RDW Std Deviation (36.4-46.3) fL RDW Coeff of [place] (11.5-14.5) % Plt Count (130-400) K/uL MPV (7.4-10.4) fL Immature Gran % (Auto) % Neut % (Auto) % Lymph % (Auto) % [place] % (Auto) % Eos % (Auto) % Baso % (Auto) % Neut # (Auto) (1.4-6.5) K/uL Lymph # (Auto) (1.2-3.4) K/uL [place] # (Auto) (0.11-0.59) K/uL Eos # (Auto) (0-0.5) K/uL Baso # (Auto) (0-0.2) K/uL Immature Gran # (Auto) (0.00-0.02) K/uL PT (9.0-12.0) Seconds INR (0.9-1.1) Sodium (136-145) mmol/L Potassium (3.5-5.1) mmol/L Chloride (98-107) mmol/L Carbon Dioxide (21-32) mmol/L Anion Gap (3-11) BUN (7-18) mg/dl Creatinine (0.6-1.4) mg/dl Est Cr Clr Drug Dosing ml/min Est GFR ( Amer) Est GFR (Non-Af Amer) BUN/Creatinine Ratio (10-20) Glucose (70-99) mg/dl Calcium (8.5-10.1) mg/dl Total Bilirubin (0.2-1) mg/dl AST (15-37) U/L ALT (12-78) U/L Alkaline Phosphatase (45-117) U/L Total Creatine Kinase (39-308) U/L Troponin I (0-0.045) ng/ml Total Protein (6.4-8.2) gm/dl Albumin (3.4-5.0) gm/dl Globulin (2.5-4.0) gm/dl Albumin/Globulin Ratio (0.9-2) TSH (0.300-4.500) uIu/ml Urine Color Yellow Urine Appearance Clear (Clear) Urine pH 7.0 (4.5-7.5) Ur Specific [place] 1.018 (1.000-1.030) Urine Protein 1+ H (Negative) Urine Glucose (UA) Negative (Negative) Urine Ketones Trace H (Negative) Urine Blood 1+ H (Negative) Urine Nitrite Negative (Negative) Urine Bilirubin Negative (Negative) Urine Urobilinogen Negative (Negative) Ur Leukocyte Esterase Negative (Negative) Urine WBC (Auto) 1-5 (0-5) /hpf Urine RBC (Auto) 5-10 H (0-4) /hpf U Hyaline Cast (Auto) 1-5 (0-5) /lpf U Epithel Cells (Auto) 5-10 H (0-5) /lpf Urine Bacteria (Auto) Negative (Negative) Imaging Data Attestation: I personally reviewed and interpreted this imaging study as follows: Radiologist's Impression: CT scan of the head: IMPRESSION: 1. No acute intracranial findings. No change in mild ventricular dilatation since MRI of April 11, 2017. This likely due to atrophy. 2. No calvarial fracture. CT scan of the cervical spine did not show acute traumatic pathology. Chest x-ray was negative for acute disease. ECG Data Attestation: I personally reviewed and interpreted this ECG as follows: Indication: + weakness Rate (beats per minute): 52 Rhythm: + sinus bradycardia ECG Intervals/blocks: + Normal QT-c ECG ST segments: no ST elevation ECG Findings: no PVCs Blood Pressure Blood Pressure Findings: Elevated blood pressure Blood Pressure Disposition: further management by hospitalist HAYDE Zuniga This is a 79-year-old male who presents to the ED with a chief complaint of a fall and also of confusion. The patient was brought in by EMS. The patient seems to have a significant amount of confusion and/or dementia. This patient lives alone. He reportedly has some home health workers that come a few times a week. His family is not present. The patient is chronically on Coumadin for paroxysmal A. fib. The patient is a poor historian. Adequate history is difficult to obtain from the patient. Other than EMS report to the nurses, no additional information is available at this time. The patient's vital signs reveal hypertension. His physical exam reveals no focal neurologic deficits. The patient on presentation seems demented. He seems to have difficulty finishing sentences that actually makes sense. He also believes that his mother is still alive and that he is taking care of her and that she is in her 80s. The patient also told the nurse that he was here last night and ordered a lunch tray that never came and he was looking for it. He also stated to 1 of the nursing staff that he [place] in another city and not here locally. The patient CT scan of the brain and cervical spine did not show acute process. An EKG showed a sinus bradycardia without ischemic changes. CBC is normal. His INR is 3. BUN is 29 and creatinine is 1.55. Troponin was normal. TSH was normal. Chest x-ray did not show acute process. Urine did not show infection. Because of the patient's dementia/confusion and the fact that he lives alone, the patient will require further inpatient evaluation and care and possible placement in a nursing facility as the patient does not have reliable outpatient care. Impression & Plan Acute confusion, Fall Discharge Plan Visit Data Chief Complaint: Fall Stated Complaint: fall/ eval ED Provider: Bony Boo Discharge Problem: Acute confusion, Fall Patient Disposition: Being Evaluated by Hospitalist Forms Stand Alone Forms: [facility] Prescriptions Prescriptions: No Action amiodarone 200 mg tablet 200 mg PO QAM RF: 0 atorvastatin 20 mg tablet 20 mg PO QPM RF: 0 famotidine 20 mg tablet 20 mg PO AMPM RF: 0 fluticasone propionate 100 mcg/actuation blister with device 2 inha INH AMPM PRN (Reason: Allergy Symptoms) RF: 0 lisinopril 40 mg tablet 40 mg PO QAM RF: 0 lorazepam 0.5 mg tablet 0.5 mg PO BID PRN (Reason: Anxiety) RF: 0 magnesium oxide 400 mg magnesium tablet 400 mg PO BID RF: 0 furosemide 40 mg tablet 40 mg PO DAILY RF: 0 doxazosin 1 mg Tablet 1 mg PO HS RF: 0 amlodipine 2.5 mg Tablet 2.5 mg PO DAILY RF: 0 warfarin 5 mg Tablet 5 mg PO UD RF: 0 metoprolol succinate 25 mg Tablet Extended Release 24 Hr 12.5 mg PO DAILY RF: 0 warfarin 5 mg tablet 2.5 mg PO UD RF: 0 Referrals Referrals: Olaf Roldan MD [Primary Care Provider] -
--- NOTE | 2019-09-30 15:07 | History & Physical Report ---
Date of Service September 30, 2019 Assessment & Plan (1) Fall: Unclear history regarding events surrounding fall. Per pt, he became dizzy and lowered himself to the floor but does report increasing frequency of falls over the past few weeks. - Monitor on telemetry - PT/OT evaluations - Case management evaluation - unclear if patient safe to continue living alone, may need to consider placement - Fall precautions - Check orthostatic vital signs (2) Acute confusion: Unclear what patient's baseline mental status is. Initially when I spoke with the patient he was not oriented and thought it was the 1960s and he was visiting his mother and sister in the area. Throughout the conversation, he became more oriented and at the end, he knew where he was and present day events. CT head negative. May need to consider MRI brain if ongoing/worsening mental status. (3) Atrial fibrillation: Paroxysmal atrial fibrillation - currently in sinus bradycardia. - Continue beta carrington for now - if worsening bradycardia, may need to re- evaluate. - Continue amiodarone. - Continue anticoagulation for now - INR therapeutic (4) Hypertension: - Continue outpatient Lisinopril and metoprolol (5) Bradycardia: - Monitor on telemetry - pt on amiodarone and metoprolol as outpatient (6) GERD (gastroesophageal reflux disease): - Continue outpatient famotidine (7) BPH (benign prostatic hyperplasia): - Continue doxazosin for now (8) COPD (chronic obstructive pulmonary disease): Per PCP records, not currently on any inhalers. (9) Anticoagulated on warfarin: INR today 3.0. Currently taking 2.5 mg //, 5 mg ///Sun. Continue same dose for now. (10) Dyslipidemia: - Continue outpatient atorvastatin Patient seen and examined with collaborating physician, Dr. Gabriel. Plan of care discussed and as outlined above. Attempted to reach sister multiple times to discuss patient's history and plan of care but unable to get through. Pt reports that he has a son and a daughter but both are out of the area. Waldo Green PA-C History of Present Illness Chief Complaint: Fall Primary Care Provider: Olaf Roldan MD This is a 79 y/o male with a PMH of paroxysmal atrial fibrillation on chronic anticoagulation, hx of TIA, chronic diastolic CHF, COPD/emphysema, GERD, dyslipidemia, HTN, venous insufficiency with hx of stasis ulcer, and CKD III, who was brought in via EMS after a fall at home. Per EMS, pt's home health aide came this morning and patient did not answer the door. When they entered, pt was found on the bathroom floor and was estimated to have been there for an hour to an hour and a half. Per pt, he became dizzy while in the bathroom and lowered himself to the floor but did not actually fall today. However, he does report that he has had increased issues with falling over the past few weeks although the exact history is unclear. He currently complains of pain in his lower back and right knee but reports these are chronic issues and not worse than usual. Denies chest pain, increased shortness of breath, headache, or congestion. He notes a chronic cough that is unchanged from usual. His main concern at present is when he can order his dinner and that he does not have his compression stockings on. I did attempt to reach his sister in [place] several times but was unable to do so. Allergies Allergy/AdvReac Type Severity Reaction Status Date / Time guaifenesin AdvReac Unknown GETS Verified 09/30/19 11:52 REALLY SICK FROM MUCINEX Home Medications Home Medications Medication Instructions Recorded Confirmed Type amiodarone 200 mg tablet 200 mg PO QAM 05/22/18 09/30/19 History atorvastatin 20 mg tablet 20 mg PO QPM 05/22/18 09/30/19 History famotidine 20 mg tablet 20 mg PO AMPM tab 05/22/18 09/30/19 History lisinopril 40 mg tablet 40 mg PO QAM 05/22/18 09/30/19 History lorazepam 0.5 mg tablet 0.5 mg PO BID PRN tab 05/22/18 09/30/19 History magnesium oxide 400 mg PO BID 05/22/18 09/30/19 History amlodipine 2.5 mg PO DAILY 03/12/19 09/30/19 History doxazosin 1 mg PO HS 03/12/19 09/30/19 History metoprolol succinate 12.5 mg PO DAILY 03/12/19 09/30/19 History warfarin 2.5 mg PO UD 03/12/19 09/30/19 History warfarin 5 mg PO UD 03/12/19 09/30/19 History furosemide 40 mg PO DAILY 09/30/19 09/30/19 History Past Med/Surg History Medical History A-fib (Chronic) Anxiety (Chronic) Aortic aneurysm (Resolved) BPH (benign prostatic hyperplasia) (Chronic) CAD (coronary artery disease) (Chronic) Cerebrovascular disease (Chronic) "history of TIA" COPD (chronic obstructive pulmonary disease) (Chronic) Diverticulosis (Chronic) Dyslipidemia (Chronic) GERD (gastroesophageal reflux disease) (Chronic) History of basal cell carcinoma of skin History of squamous cell carcinoma of skin HTN (hypertension) (Chronic) Hypertension (Chronic) Neuropathy (Chronic) Sinusitis (Chronic) TIA (transient ischemic attack) (Chronic) Venous insufficiency (Chronic) Surgical History H/O arthroscopic knee surgery (Chronic) H/O thoracic aortic aneurysm repair (Chronic) History of aortic valve replacement 11/22/2015 - Dr. Mayo Phoenix ([facility] [place]) Knee joint replacement status (Resolved) S/P CABG x 1 (Chronic) Family History Other Family history non-contributory Social History Smoking Status: Former smoker Second Hand Exposure: No; Do You Dip or Chew Tobacco: No; Tobacco Cessation Education Requested by Patient: No Hx Alcohol Use: Yes Alcohol type: beer and wine Hx Substance Use: No Preferred Language: German Communication Ability: Effective Visual Impairment: Limited Hearing Ability: Hard of Hearing Payloader Operator Required: No Beliefs That Will Affect Care: None marital status: Current Living Situation: Alone Current Living Situation Comment[facility] current occupational status: retired Other Information That Helps Us Care for You: No Feels Safe at Home: Yes Safety Concerns: Feels Safe At This Time Review of Systems Review of Systems: Limited ROS due to pt's fluctuating mental status. Unclear how reliable history from the patient is at this time. Constitutional: no fever and no chills Eyes: no worsening vision Ear, Nose, Mouth, Throat: no nasal congestion and no nasal discharge Respiratory: + cough (chronic issues - unchanged); no chest congestion and no dyspnea Cardiovascular: + lightheadedness and + edema; no chest pain, no syncope and no calf pain Gastrointestinal: no abdominal pain, no nausea, no vomiting and no diarrhea/loose stools Musculoskeletal: + back pain (chronic); no neck pain and no joint pain Integumentary: no rash Neurologic: + unsteadiness, + tremor(s) and + dizziness; no headache(s) Psychiatric: + anxiety and + confusion Physical Exam Constitutional: WD/WN, vitals as above no acute distress Eyes: PERRL, conjunctivae normal, anicteric sclerae EOM intact bilaterally ENMT: external ear and nose normal, oropharynx normal Neck: trachea midline Respiratory: no respiratory distress and no retractions Auscultation: lungs clear to auscultation bilaterally; no rales, no rhonchi and no wheezes Cardiovascular: Rate/Rhythm: regular rhythm and + bradycardic Extremities: normal capillary refill and + edema (trace LE edema) Gastrointestinal (Abdomen): Inspection/Auscultation: normal bowel sounds; abdomen not distended Percussion/Palpation: abdomen soft; abdomen nontender Musculoskeletal: Head/Neck/Chest: neck supple Extremities: no cyanosis Skin: no rashes, warm and dry Multiple small areas of ecchymosis on bilateral UE and LE Neurologic: moves all extremities Speech / Cognition: normal speech Motor/Sensory: + tremor (bilateral UE - right > left) Results & Data Results & Data ([facility]) Vital Signs (Past 12 Hours) Vital Signs Temp Pulse Resp BP Pulse Ox 09/30/19 14:31 63 21 165/75 H 09/30/19 14:30 62 20 09/30/19 14:00 62 13 175/59 H 09/30/19 13:31 62 19 171/87 H 97 09/30/19 13:30 60 20 09/30/19 13:00 57 L 17 179/60 H 96 09/30/19 12:30 57 L 14 175/63 H 97 09/30/19 12:05 57 L 18 171/59 H 09/30/19 11:35 51 L 20 96 09/30/19 11:30 51 L 20 154/62 H 97 09/30/19 11:07 36.4 C L 53 L 20 161/56 H 96 09/30/19 11:04 49 L 20 96 09/30/19 11:03 51 L 16 161/56 H 96 09/30/19 11:01 54 L 14 166/56 H 96 Laboratory Results Laboratory Results - last 24 hr 09/30/19 09/30/19 09/30/19 12:04 12:04 12:04 WBC 9.90 RBC 3.86 L Hgb 11.8 L Hct 35.2 L MCV 91.2 MCH 30.6 MCHC 33.5 RDW Std Deviation 45.7 RDW Coeff of Trinh 13.7 Plt Count 134 MPV 10.2 Immature Gran % (Auto) 0.3 Neut % (Auto) 83.9 Lymph % (Auto) 3.8 [place] % (Auto) 11.7 Eos % (Auto) 0.2 Baso % (Auto) 0.1 Neut # (Auto) 8.30 H Lymph # (Auto) 0.38 L [place] # (Auto) 1.16 H Eos # (Auto) 0.02 Baso # (Auto) 0.01 Immature Gran # (Auto) 0.03 H PT 29.9 H INR 3.0 H Sodium 139 Potassium 4.6 Chloride 108 H Carbon Dioxide 26 Anion Gap 5.0 BUN 29 H Creatinine 1.53 H Est Cr Clr Drug Dosing 45.5 Est GFR ( Amer) 49.4 Est GFR (Non-Af Amer) 42.6 BUN/Creatinine Ratio 18.8 Glucose 86 Calcium 8.7 Total Bilirubin 0.9 AST 27 ALT 30 Alkaline Phosphatase 94 Total Creatine Kinase 195 Troponin I < 0.015 Total Protein 7.0 Albumin 3.7 Globulin 3.3 Albumin/Globulin Ratio 1.1 TSH 0.664 Urine Color Urine Appearance Urine pH Ur Specific Brandon Urine Protein Urine Glucose (UA) Urine Ketones Urine Blood Urine Nitrite Urine Bilirubin Urine Urobilinogen Ur Leukocyte Esterase Urine WBC (Auto) Urine RBC (Auto) U Hyaline Cast (Auto) U Epithel Cells (Auto) Urine Bacteria (Auto) 09/30/19 12:53 WBC RBC Hgb Hct MCV MCH MCHC RDW Std Deviation RDW Coeff of Trinh Plt Count MPV Immature Gran % (Auto) Neut % (Auto) Lymph % (Auto) [place] % (Auto) Eos % (Auto) Baso % (Auto) Neut # (Auto) Lymph # (Auto) [place] # (Auto) Eos # (Auto) Baso # (Auto) Immature Gran # (Auto) PT INR Sodium Potassium Chloride Carbon Dioxide Anion Gap BUN Creatinine Est Cr Clr Drug Dosing Est GFR ( Amer) Est GFR (Non-Af Amer) BUN/Creatinine Ratio Glucose Calcium Total Bilirubin AST ALT Alkaline Phosphatase Total Creatine Kinase Troponin I Total Protein Albumin Globulin Albumin/Globulin Ratio TSH Urine Color Yellow Urine Appearance Clear Urine pH 7.0 Ur Specific Brandon 1.018 Urine Protein 1+ H Urine Glucose (UA) Negative Urine Ketones Trace H Urine Blood 1+ H Urine Nitrite Negative Urine Bilirubin Negative Urine Urobilinogen Negative Ur Leukocyte Esterase Negative Urine WBC (Auto) 1-5 Urine RBC (Auto) 5-10 H U Hyaline Cast (Auto) 1-5 U Epithel Cells (Auto) 5-10 H Urine Bacteria (Auto) Negative Diagnostic Findings Chest x-ray 09/30/19 - IMPRESSION: No active disease in the chest. CT Head 09/30/19 - IMPRESSION: 1. No acute intracranial findings. No change in mild ventricular dilatation since MRI of April 11, 2017. This likely due to atrophy. 2. No calvarial fracture. Cervical Spine CT 09/30/19 - IMPRESSION: No fractures within the cervical spine. Moderate degenerative change. No acute process. Medications Administered Discontinued Medications Sodium Chloride (Nss) 500 mls @ 999 mls/hr IV .Q31M IRAM Stop: 09/30/19 12:00 Last Infusion: 09/30/19 12:55 Dose: 0 mls/hr Documented by: [id number] Admin: 09/30/19 12:12 Dose: 999 mls/hr Documented by: [id number] Code Status & VTE Plan VTE Prophylaxis Plan VTE Prophylaxis will be ordered: Yes Supervising Physician Co-Signing Physician Notes HISTORY: Record reviewed. Patient interviewed and examined. Care coordinated with Grecia Green PA-C; please refer to her documentation for complete history. Briefly, 79 YO male with history of CAD, diastolic CHF, PAF, TIA's, hypertension, COPD, and other problems as noted. Lives by himself. Ambulatory with walker. Found on floor this morning. Patient unable to articulate nature of the fall or how long he was on the floor. Denies headache, LOC, chest pain, palpitations, focal neuro symptoms. EXAM: General- no distress Lungs- clear to auscultation; no respiratory distress Cardiovascular- RRR; no murmur or gallop appreciated; no JVD; trace pretibial edema Abdomen- + bowel sounds, soft, nontender Extremities- no cyanosis; no calf tenderness; chronic venous stasis changes lower extremities Neuro- alert, essentially oriented x 3 but has difficulties with short-term and long-term memory; tangential thoughts; PERRL, EOMI; no facial palsy; no dysarthria; motor 5/5 bilat Skin- warm & dry DATA: Hgb 11.8, WBC 9990, plts 134,000. INR 3.0. Na 139, K 4.6, CO2 26, Cl 108, CO2 26, BUN 29, creatinine 1.53, glucose 86. Troponin I < 0.015. CPK 195. UA 1+ blood, neg nitrites, neg leuk esterase, 1-5 WBC's, 5-10 RBC's. Other lab studies as noted. Chest x-ray reviewed and demonstrated postsurgical changes, calcification of aorta, no infiltrates, effusions, CHF. CT brain interpreted by Radiology: mild ventricular dilatation (chronic, unchanged), no acute vascular events CT C-spine interpreted by Radiology: no fractures / dislocations EKG performed at 11:00 reviewed and demonstrated SB at 52 / minute, baseline artifact, no acute changes. ASSESSMENT AND PLAN: Fall. Suspect ambulatory dysfunction. Chronic bradycardia on metoprolol and amiodarone. HR in ED 50's - 60's. Monitor for significant arrhythmias. On furosemide for diastolic CHF. BUN & creatinine elevated, but at baseline. Check orthostatic VS. PT / OT evaluations. Somewhat confused. Short-term and long-term memory seem worse than last year. No acute findings on CT head. Does not appear to have delirium. TSH normal. Check vitamin B12. Check with family regarding recent baseline cognitive status. Discharge disposition to be determined. May need skilled care or rehab. Consult Case Management. Please refer to CHELLE Green's documentation for discussion of other issues. (1) BPH (benign prostatic hyperplasia) Lower urinary tract symptom detail: weak urinary stream Lower urinary tract symptom presence: symptoms present Qualified Code(s): N40.1 - Benign prostatic hyperplasia with lower urinary tract symptoms; R39.12 - Poor urinary stream (2) Atrial fibrillation Atrial fibrillation type: paroxysmal Qualified Code(s): I48.0 - Paroxysmal atrial fibrillation (3) COPD (chronic obstructive pulmonary disease) COPD type: emphysema Emphysema type: centrilobular Qualified Code(s): J43.2 - Centrilobular emphysema (4) GERD (gastroesophageal reflux disease) Esophagitis presence: without esophagitis Qualified Code(s): K21.9 - Gastro- esophageal reflux disease without esophagitis (5) Hypertension Hypertension type: essential hypertension Qualified Code(s): I10 - Essential (primary) hypertension (6) Fall Encounter type: initial encounter Qualified Code(s): W19.XXXA - Unspecified fall, initial encounter
--- NOTE | 2019-09-30 16:07 | Communication Note ---
Date of Service: September 30, 2019 HISTORY: Record reviewed. Patient interviewed and examined. Care coordinated with Grecia Green PA-C; please refer to her documentation for complete history. Briefly, 79 YO male with history of CAD, diastolic CHF, PAF, TIA's, hypertension, COPD, and other problems as noted. Lives by himself. Ambulatory with walker. Found on floor this morning. Patient unable to articulate nature of the fall or how long he was on the floor. Denies headache, LOC, chest pain, palpitations, focal neuro symptoms. EXAM: General- no distress Lungs- clear to auscultation; no respiratory distress Cardiovascular- RRR; no murmur or gallop appreciated; no JVD; trace pretibial edema Abdomen- + bowel sounds, soft, nontender Extremities- no cyanosis; no calf tenderness; chronic venous stasis changes lower extremities Neuro- alert, essentially oriented x 3 but has difficulties with short-term and long-term memory; tangential thoughts; PERRL, EOMI; no facial palsy; no dysarthria; motor 5/5 bilat Skin- warm & dry DATA: Hgb 11.8, WBC 9990, plts 134,000. INR 3.0. Na 139, K 4.6, CO2 26, Cl 108, CO2 26, BUN 29, creatinine 1.53, glucose 86. Troponin I < 0.015. CPK 195. UA 1+ blood, neg nitrites, neg leuk esterase, 1-5 WBC's, 5-10 RBC's. Other lab studies as noted. Chest x-ray reviewed and demonstrated postsurgical changes, calcification of aorta, no infiltrates, effusions, CHF. CT brain interpreted by Radiology: mild ventricular dilatation (chronic, unchanged), no acute vascular events CT C-spine interpreted by Radiology: no fractures / dislocations EKG performed at 11:00 reviewed and demonstrated SB at 52 / minute, baseline artifact, no acute changes. ASSESSMENT AND PLAN: Fall. Suspect ambulatory dysfunction. Chronic bradycardia on metoprolol and amiodarone. HR in ED 50's - 60's. Monitor for significant arrhythmias. On furosemide for diastolic CHF. BUN & creatinine elevated, but at baseline. Check orthostatic VS. PT / OT evaluations. Somewhat confused. Short-term and long-term memory seem worse than last year. No acute findings on CT head. Does not appear to have delirium. TSH normal. Check vitamin B12. Check with family regarding recent baseline cognitive status. Discharge disposition to be determined. May need skilled care or rehab. Consult Case Management. Please refer to CHELLE Green's documentation for discussion of other issues.
[2019-09-30] MEDS: DOXAZOSIN MESYLATE 1 MG TAB PO SCH (20:27)
[2019-09-30] MEDS: ATORVASTATIN 20 MG TAB PO SCH (20:27)
[2019-09-30] MEDS: FAMOTIDINE 20 MG TAB PO SCH (20:27)
[2019-10-01 08:33] LABS: Basophils # (auto) 0.01 K/uL (0-0.2); Basophils % (auto) 0.2 %; Eosinophils % (auto) 1.7 %; Hematocrit (blood only) 35.2 % (42-52); Hemoglobin 11.9 g/dL (14.0-18.0); Immature Granulocytes # (auto) 0.02 K/uL (0.00-0.02); Immature Granulocytes % (auto) 0.3 %; Lymphocytes # (auto) 0.81 K/uL (1.2-3.4); Lymphocytes % (auto) 13.5 %; Mean Corpuscular Hemoglobin 30.8 pg (25-34); Mean Corpuscular Hgb Conc 33.8 g/dL (32-36); Mean Corpuscular Volume 91.2 fL (80-100); Mean Platelet Volume 9.8 fL (7.4-10.4); Monocytes # (auto) 0.78 K/uL (0.11-0.59); Neutrophils # (auto) 4.26 K/uL (1.4-6.5); Neutrophils % (auto) 71.3 %; Platelet Count 141 K/uL (130-400); RDW Coefficient of Variation 13.8 % (11.5-14.5); RDW Standard Deviation 45.5 fL (36.4-46.3); Red Blood Count 3.86 M/uL (4.7-6.1); White Blood Count 5.98 K/uL (4.8-10.8)
[2019-10-01 08:42] LABS: INR 2.3 (0.9-1.1)
[2019-10-01] MEDS ORDERED: AMLODIPINE BESYLATE 5 MG TAB PO SCH (09:00)
[2019-10-01] MEDS: FUROSEMIDE 40 MG TAB PO SCH (09:01)
[2019-10-01] MEDS: AMIODARONE 200 MG TAB PO SCH (09:01)
[2019-10-01 09:02] LABS: BUN Creatinine Ratio 17.1 (10-20); Calcium 8.5 mg/dl (8.5-10.1); Creatinine Clr Calc Pharmacy 39.4 ml/min; Est GFR (African American) 45.4; Est GFR (Non-African American) 39.2; Potassium 4.2 mmol/L (3.5-5.1)
[2019-10-01] MEDS: METOPROLOL SUCC 25MG EXT REL TAB PO SCH (09:02)
[2019-10-01] MEDS: FAMOTIDINE 20 MG TAB PO SCH ×2 (09:02→20:57)
[2019-10-01] MEDS: lisinopriL 40 MG TAB PO SCH (09:02)
[2019-10-01] MEDS ORDERED: MICONAZOLE NITRATE POWDER 43 GM EXT PRN (09:07)
[2019-10-01] MEDS: WARFARIN SOD 2.5 MG TAB PO SCH (15:16)
[2019-10-01] MEDS: ACETAMINOPHEN 325 MG TAB PO PRN (15:17)
--- NOTE | 2019-10-01 17:22 | Hospitalist Progress Note ---
Date of Service October 01, 2019 Assessment & Plan (1) Fall: Fall ? Mechanical fall ? due to Ambulatory dysfunction/Orthostatic hypotension CT head:No acute intracranial findings. No change in mild ventricular dilatation since MRI of April 11, 2017. This likely due to atrophy. No calvarial f racture. CT neck:No fractures within the cervical spine. Moderate degenerative change. No acute process. Normal Vit B 12 levels PT/OT eval Case management consulted to help with placement Fall precautions Orthostatic hypotension Positive Orthostatics Discontinue amlodipine Monitor BP and adjust meds as needed Recheck Orthostatics in AM (2) Acute confusion: Acute Encephalopathy CT head:No acute intracranial findings. No change in mild ventricular dilatation since MRI of April 11, 2017. This likely due to atrophy. No calvarial fracture. MRI pending Normal Vit B12, TSH, RPR Urine not suggestive of UTI Consulted Neurology for Input Mental status not at baseline per patient's sister (3) Atrial fibrillation: Paroxysmal atrial fibrillation Chronic Bradycardia Continue Amiodarone, Metoprolol Continue Coumadin Monitor INR:2.3 (4) Hypertension: Continue Lisinopril, Metoprolol Amlodipine discontinued as orthostatic hypotension (5) Bradycardia: Monitor (6) GERD (gastroesophageal reflux disease): Continue famotidine (7) BPH (benign prostatic hyperplasia): Continue doxazosin (8) COPD (chronic obstructive pulmonary disease): Per PCP records, not currently on any inhalers No signs of exacerbation (9) Anticoagulated on warfarin: Monitor INR (10) Dyslipidemia: Continue Atorvastatin DVT Px: Coumadin Code Status Full Code Disposition To be determined Admission and Anticipated Discharge Date Admission Date: September 30, 2019 Subjective Patient is seen and examined at bedside Pleasantly confused Reports chronic neck pain Discussed with patient's sister--mental status not at baseline as per sister MRI brain pending Offers no other complaints Review of Systems Review of Systems: All systems reviewed & are unremarkable except as noted in HPI & below Physical Exam Physical Exam: Physical Exam: Vitals signs as noted above General Appearance:Thin, no apparent distress Head: normocephalic, Atraumatic Eyes: normal inspection, EOMI Neck: supple, Trachea midline Respiratory/Chest: Normal breath sounds, CTA, No accessory muscle use Cardiovascular: S1, S2, +Bradycardia, No murmur Abdomen/GI:Soft, Non tender, Bowel sounds present Extremities/Musculoskelatal:normal inspection, no edema Neurologic/Psych:Alert, awake, confused, grossly no focal neurological deficits Skin: normal color, warm Results & Data Results & Data ([facility]) Vital Signs (Past 12 Hours) Vital Signs Temp Pulse Pulse Resp BP BP Pulse Ox 10/01/19 15:59 37.0 C 57 L 18 149/57 H 94 10/01/19 15:00 59 L 10/01/19 11:55 36.3 C L 55 L 18 136/57 L 95 10/01/19 09:39 54 L 10/01/19 07:38 37.0 C 56 L 18 153/61 H 92 Laboratory Results Short CBC 10/01/19 Range/Units 08:17 WBC 5.98 (4.8-10.8) K/uL Hgb 11.9 L (14.0-18.0) g/dL Hct 35.2 L (42-52) % Plt Count 141 (130-400) K/uL BMP 10/01/19 08:17 Sodium 139 Potassium 4.2 Chloride 110 H Carbon Dioxide 25 BUN 28 H Creatinine 1.64 H Glucose 93 Calcium 8.5 (1) Fall Encounter type: initial encounter Qualified Code(s): W19.XXXA - Unspecified fall, initial encounter (2) Atrial fibrillation Atrial fibrillation type: paroxysmal Qualified Code(s): I48.0 - Paroxysmal atrial fibrillation (3) Hypertension Hypertension type: essential hypertension Qualified Code(s): I10 - Essential (primary) hypertension (4) GERD (gastroesophageal reflux disease) Esophagitis presence: without esophagitis Qualified Code(s): K21.9 - Gastro- esophageal reflux disease without esophagitis (5) BPH (benign prostatic hyperplasia) Lower urinary tract symptom presence: symptoms present Lower urinary tract symptom detail: weak urinary stream Qualified Code(s): N40.1 - Benign prostatic hyperplasia with lower urinary tract symptoms; R39.12 - Poor urinary stream (6) COPD (chronic obstructive pulmonary disease) COPD type: emphysema Emphysema type: centrilobular Qualified Code(s): J43.2 - Centrilobular emphysema
--- NOTE | 2019-10-01 18:22 | Communication Note ---
Date of Service: October 01, 2019 I saw Dallin today and agree that he is not at any baseline and I would recognize as I do see him frequently in the office every 6 months or so and have done so for years. Normally he is quite bright well-informed about current events talks about sports incessantly talks about his reading activities and today he knows me but is clearly disoriented at times to place and time thinking at times he is in his apartment that he is in the hospital he knows that the president is Mr. Bermudez but is unclear as to the date the month and thought the year was 2002. He is also very confused in terms of his recent history stating that he just fell in the room where is its is not the case and the fall actually occurred at home at times I think he believes he is b ack in his apartment His exam otherwise is nonfocal except for the neuropathy which has been progressive over the years and explains his falls and his gait disturbance and perhaps some of his orthostasis if there is autonomic involvement At this point an MRI is pending I am going order an EEG and a full consult has been dictated but all I can state now as this is a mild nonspecific non-lateralized encephalopathy of indeterminant cause and we need to exclude cardiogenic emboli from paroxysmal atrial fibrillation despite his adequate anticoagulation but frankly I do not think we are going to see much other than some chronic white matter changes Olaf Larkin MD
--- NOTE | 2019-10-01 20:49 | Consultation Report ---
DATE OF CONSULTATION: 10/01/2019 CONSULTATION FOR: Olaf Gabriel MD and Cecilio Elizabeth MD. HISTORY OF PRESENT ILLNESS: Dallin is 79 years old, patient of Dr. 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 He is here today after having a fall at home. The patient states he became dizzy and lowered himself to the floor and told me that he has had these episodes recently after he stands up too quickly. It does not seem as though he hit his head, but he was in a confused state and brought to the hospital and has not yet been back to normal. He has a history of atrial fibrillation, paroxysmal type, but is in sinus bradycardia now. He has a history of hypertension, but now has some orthostatic and his lisinopril has been I think held. I defer to the internal medicine notes for more details. He has a little bradycardia, gastroesophageal reflux, BPH, COPD, he is chronically anticoagulated on warfarin, has dyslipidemia and has a history of aortic aneurysmal surgery. MEDICATIONS AT HOME: Include amiodarone, atorvastatin, famotidine, lisinopril, lorazepam, magnesium, amlodipine, doxazosin, metoprolol, warfarin, and Lasix. It is not clear whether the amlodipine or the lisinopril is being held in the face of mild orthostasis. PAST MEDICAL AND SURGICAL HISTORY: He has had chronic AFib, anxiety, aortic aneurysm repair, BPH, CAD. He has had TIA-like events in the remote past but none for some time. 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 He also has a history of some mild delirium/encephalopathy during several of his hospitalizations in the past and at one point, there was a question raised by his sister about whether he had Alzheimer disease, but he rapidly came back to his normal very bright, active self. Surgically, he has had the arthroscopic knee procedure, the aortic valve replacement, the thoracic aortic aneurysm replacement and has had CABG on one occasion. FAMILY HISTORY: Noncontributory, though his mother had a massive stroke and at age 80 or some. SOCIAL HISTORY: Reveals him to be single. He is a former smoker, does not drink alcohol, lives alone. Reads veraciously and follows sports veraciously and at one point was into a lot of gambling activities, betting on multiple sports, teams and horses. REVIEW OF SYSTEMS: Could not be obtained from the patient today. He mainly complained of right leg pain and denied any fevers, sweats or chills but was clearly a little disorganized in terms of his reciting of his history. He recognizes me, but it took some time. He knew the year, but could not get that consistently, knew the president, did not know the month, knew the season and was mixed up in terms of where he was, at times I thought he was speaking as if he was at home as he described falling in the bathroom and pointed to the bathroom in his room whereas the fall actually occurred in his home. PHYSICAL EXAMINATION: GENERAL: General point of view revealed him to be alert but confused. There were no bony deformities. HEENT: No signs of head trauma. Eye movements were normal. Speech was clear. NECK: Supple. LUNGS: Clear. HEART: Had irregular rhythm, but was largely bradycardic and sinus. No significant murmurs were heard. ABDOMEN: Soft, nontender. EXTREMITIES: Had chronic venous stasis pigment and arthritic deformities. VITAL SIGNS: He had a blood pressure of 165/75, pulse was 63, respirations were 21. NEUROLOGIC: He was definitely not himself today. He was hesitant, had word finding problems, clearly was having trouble with orientation, not realizing he was not at his home at times and then realizing he was in the hospital, then thinking he was in outpatient visit and was confused when his neighbors' phone went off, thinking it was in another location. That having been said, he was able to converse. He moved his eyes. He had normal facial motility and strength, clear speech. His upper extremity function was normal. 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 I did not see any asterixis, tremor, tics, choreiform activity or other abnormal movements. In the lower extremities, he had a lot of pain on movement. He had weakness of dorsiflexion and plantar flexion consistent with his neuropathy, no reflexes and had pretty dense sensory loss to most modalities below the knees. ASSESSMENT AND PLAN: I am not sure what occurred here. He is clearly more confused than I recall in an office setting. He has apparently had delirium in the past of mild degree, but we do not have any clear evidence for any acute illness at this point as his laboratory studies seemed to be fairly good and basic radiographic studies including CAT scan of the head are normal. I am going to get an EEG just to be sure there is no nonconvulsive status epilepticus pattern and we are going to get an MRI and we will have to determine that he has or has not had multiple emboli as he does have a history of paroxysmal atrial fibrillation, could have been in and out of it and could have thrown a shower of clots, which might have produced a fall and the confusion. I will check back with him tomorrow.
[2019-10-01] MEDS: ATORVASTATIN 20 MG TAB PO SCH (20:57)
[2019-10-01] MEDS: DOXAZOSIN MESYLATE 1 MG TAB PO SCH (20:57)
--- NOTE | 2019-10-01 20:57 | Magnetic Resonance Report ---
MRI OF THE BRAIN WITHOUT CONTRAST CLINICAL HISTORY: Altered mental status. COMPARISON STUDY: Head CT September 30, 2019. MRI of the brain April 11, 2017. TECHNIQUE: Utilizing a 1.5 Sudha magnet and dedicated coil, multiplanar, multiecho imaging of the bra in was performed without IV contrast. FINDINGS: Note is made of a 2.7 x 1.8 cm focus of restricted diffusion within the right basal ganglia . This represents acute infarct. Note is also made of acute infarct within the anterior medial right frontal lobe as well as restricted diffusion suggestive of acute infarct involving the genu and rostr um of the corpus callosum. There is corresponding T2 hyperintensity with mild mass effect. No hemorrh age is present. Ventricular dilatation is unchanged since previous MRI. This is likely due to atrophy . The basilar cisterns are patent. There are no extra axial collections. No intracranial masses ident ified on this unenhanced examination. Calvarial signal is normal. White matter T2 hyperintense foci s uggest small vessel disease. IMPRESSION: 1. Acute infarct involving the right basal ganglia, anteromedial right frontal lobe and genu and jorge rum of the corpus callosum. Mild mass effect. No hemorrhage. This finding will be called/faxed to the ordering provider at time of dictation. 2. No change in mild ventricular dilatation which is likely due to atrophy. ACT 112: Negative or not required by law. Electronically signed by: Tyron Chavez M.D. 10/01/2019 8:56 PM
[2019-10-01] MEDS ORDERED: ASPIRIN 300 MG SUPP PR ONE (21:23)
--- NOTE | 2019-10-01 21:24 | Communication Note ---
Date of Service: October 01, 2019 Made aware by RN of MRI result. 1. Acute infarct involving the right basal ganglia, anteromedial right frontal lobe and genu and rostrum of the corpus callosum. Mild mass effect. No hemorrhage. This finding will be called/faxed to the ordering provider at time of dictation. 2. No change in mild ventricular dilatation which is likely due to atrophy. AP Acute CVA Add aspirin to patient's Coumadin for now for stroke prophylaxis. (ASA suppository for now given aspiration concerns by RN.) TTE, carotid Dopplers, lipid profile for stroke work-up. Will relay to AM provider.
[2019-10-02 06:11] LABS: Hematocrit (blood only) 36.1 % (42-52); Hemoglobin 11.8 g/dL (14.0-18.0); Mean Corpuscular Hemoglobin 30.3 pg (25-34); Mean Corpuscular Hgb Conc 32.7 g/dL (32-36); Mean Corpuscular Volume 92.6 fL (80-100); Mean Platelet Volume 9.8 fL (7.4-10.4); Platelet Count 146 K/uL (130-400); RDW Coefficient of Variation 13.9 % (11.5-14.5); RDW Standard Deviation 47.2 fL (36.4-46.3)
[2019-10-02 06:22] LABS: INR 2.1 (0.9-1.1); Prothrombin Time 20.9 Seconds (9.0-12.0)
[2019-10-02 06:49] LABS: BUN Creatinine Ratio 20.5 (10-20); Calcium 7.9 mg/dl (8.5-10.1); Creatinine Clr Calc Pharmacy 39.2 ml/min; Est GFR (African American) 45.1; Est GFR (Non-African American) 38.9; Potassium 3.8 mmol/L (3.5-5.1)
[2019-10-02] MEDS: METOPROLOL SUCC 25MG EXT REL TAB PO SCH (08:27)
[2019-10-02] MEDS: lisinopriL 40 MG TAB PO SCH (08:28)
[2019-10-02] MEDS: AMIODARONE 200 MG TAB PO SCH (08:29)
[2019-10-02] MEDS: FUROSEMIDE 40 MG TAB PO SCH (08:29)
[2019-10-02] MEDS: FAMOTIDINE 20 MG TAB PO SCH ×2 (08:30→20:35)
[2019-10-02] MEDS: ASPIRIN 81 MG ECTAB PO SCH (08:30)
--- NOTE | 2019-10-02 08:37 | Electrocardiogram Report ---
Test Reason : Blood Pressure : / mmHG Vent. Rate : 052 BPM Atrial Rate : 052 BPM P-R Int : 162 ms QRS Dur : 128 ms QT Int : 518 ms P-R-T Axes : 031 041 067 degrees QTc Int : 481 ms Poor data quality, interpretation may be adversely affected Sinus bradycardia Non-specific intra-ventricular conduction block Abnormal ECG When compared with ECG of 10-JUL-2018 07:21, No significant change was found Confirmed by Gene Lunsford ([id number]) on 10/02/2019 8:36:48 AM Referred By: REFERRED SELF Confirmed By:Gene Lunsford
--- NOTE | 2019-10-02 09:24 | Electrocardiogram Report ---
Test Reason : Blood Pressure : / mmHG Vent. Rate : 052 BPM Atrial Rate : 052 BPM P-R Int : 302 ms QRS Dur : 112 ms QT Int : 490 ms P-R-T Axes : 044 019 070 degrees QTc Int : 455 ms Poor data quality, interpretation may be adversely affected Sinus bradycardia with 1st degree A-V block Minimal voltage criteria for LVH, may be normal variant ( Sokolow-Weller ) Septal infarct , age undetermined Abnormal ECG When compared with ECG of 30-SEP-2019 11:00, (unconfirmed) CO interval has increased Confirmed by Gene Lunsford ([id number]) on 10/02/2019 9:24:28 AM Referred By: REFERRED SELF Confirmed By:Gene Lunsford
--- NOTE | 2019-10-02 10:26 | Ultrasound Report ---
CAROTID ARTERY ULTRASOUND CLINICAL HISTORY: stroke COMPARISON STUDY: Carotid ultrasound October 21, 2014. TECHNIQUE: Real-time, grayscale, and color Doppler sonography of the carotid and vertebral arteries w as performed. Images were viewed in the transverse and longitudinal planes. FINDINGS: There is moderate atherosclerotic plaque present distal cervical and proximal bilateral internal marrero tid arteries. Velocity measurements are listed below. COMMON CAROTID PEAK SYSTOLIC VELOCITY (CM/S): RIGHT 65 LEFT 80 ICA PEAK SYSTOLIC VELOCITY (CM/S): RIGHT 72 LEFT 9 Systolic ratios between the internal to common carotid arteries were normal. Antegrade flow is seen in the vertebral arteries. The external carotid arteries are patent. Significa ntly elevated peak systolic velocity of 310 cm/s within the proximal left external carotid artery was noted. There is a mildly elevated peak systolic velocity of 178 cm second within the proximal right external carotid artery. Blood pressure was not obtained due to IV. IMPRESSION: 1. Moderate plaque without evidence for hemodynamically significant stenosis within the bilateral cer vical internal carotid arteries. 2. Findings suggestive of stenoses of the bilateral external carotid arteries, more severe on the lef t. ACT 112: Negative or not required by law. Electronically signed by: Tyron Chavez M.D. 10/02/2019 10:25 AM
--- NOTE | 2019-10-02 15:24 | Electroencephalogram ---
EEG Procedure Note Date of Service October 02, 2019 Start / End Times Start Time: 621 End Time: 641 Referring Physician Olaf Larkin MD History Confusion after unwitnessed f Home Medication List Home Medications Medication Instructions Recorded Confirmed Type amiodarone 200 mg tablet 200 mg PO QAM 05/22/18 09/30/19 History atorvastatin 20 mg tablet 20 mg PO QPM 05/22/18 09/30/19 History famotidine 20 mg tablet 20 mg PO AMPM tab 05/22/18 09/30/19 History lisinopril 40 mg tablet 40 mg PO QAM 05/22/18 09/30/19 History lorazepam 0.5 mg tablet 0.5 mg PO BID PRN tab 05/22/18 09/30/19 History magnesium oxide 400 mg PO BID 05/22/18 09/30/19 History amlodipine 2.5 mg PO DAILY 03/12/19 09/30/19 History doxazosin 1 mg PO HS 03/12/19 09/30/19 History metoprolol succinate 12.5 mg PO DAILY 03/12/19 09/30/19 History warfarin 2.5 mg PO UD 03/12/19 09/30/19 History warfarin 5 mg PO UD 03/12/19 09/30/19 History furosemide 40 mg PO DAILY 09/30/19 09/30/19 History Inpatient Medication List Acetaminophen (Tylenol) 650 mg PO Q4H PRN PRN Reason: Pain or Fever Stop: 10/30/19 16:37 Last Admin: 10/01/19 15:17 Dose: 650 mg Documented by: [id number] Amiodarone [facility] (Cordarone) [facility] Stop: 10/31/19 08:59 Last Admin: 10/02/19 08:29 Dose: 200 mg Documented by: [id number] Admin: 10/01/19 09:01 Dose: 200 mg Documented by: [id number] Aspirin (Ecotrin Ectab) 81 [facility] Stop: 11/01/19 08:59 Last Admin: 10/02/19 08:30 Dose: 81 mg Documented by: [id number] Doxazosin Mesylate (Cardura) [address] [facility] Stop: 10/30/19 20:59 Last Admin: 10/01/19 20:57 Dose: 1 mg Documented by: [id number] Admin: 09/30/19 20:27 Dose: 1 mg Documented by: [id number] Famotidine (Pepcid) 20 mg PO BID [facility] Stop: 10/30/19 20:59 Last Admin: 10/02/19 08:30 Dose: 20 mg Documented by: [id number] Admin: 10/01/19 20:57 Dose: 20 mg Documented by: [id number] Admin: 10/01/19 09:02 Dose: 20 mg Documented by: [id number] Admin: 09/30/19 20:27 Dose: 20 mg Documented by: [id number] Furosemide (Lasix) 40 mg PO DAILY [facility] Stop: 10/31/19 08:59 Last Admin: 10/02/19 08:29 Dose: 40 mg Documented by: [id number] Admin: 10/01/19 09:01 Dose: 40 mg Documented by: [id number] Lisinopril (Zestril) 40 mg PO QAM [facility] Stop: 10/31/19 08:59 Last Admin: 10/02/19 08:28 Dose: 40 mg Documented by: [id number] Admin: 10/01/19 09:02 Dose: 40 mg Documented by: [id number] Metoprolol Succinate (Toprol Xl) 12.5 mg PO DAILY [facility] Stop: 10/31/19 08:59 Last Admin: 10/02/19 08:27 Dose: 12.5 mg Documented by: [id number] Admin: 10/01/19 09:02 Dose: Not Given Documented by: [id number] Warfarin Sodium (Coumadin) 2.5 mg PO [id number] [facility] Stop: 10/31/19 15:59 Last Admin: 10/01/19 15:16 Dose: 2.5 mg Documented by: [id number] Discontinued Medications Amlodipine Besylate (Norvasc) 2.5 mg PO DAILY [facility] Stop: 10/31/19 08:59 Last Admin: 10/01/19 09:02 Dose: 2.5 mg Documented by: [id number] Aspirin (Aspirin) 300 mg [place] [facility] Stop: 10/01/19 21:24 Last Admin: 10/01/19 21:49 Dose: 300 mg Documented by: [id number] Atorvastatin Calcium (Lipitor) 20 mg PO QPM [facility] Stop: 10/30/19 20:59 Last Admin: 10/01/19 20:57 Dose: 20 mg Documented by: [id number] Admin: 07/28/20 20:27 Dose: 20 mg Documented by: [id number] Sodium Chloride (Nss) 500 mls @ 999 mls/hr IV .Q31M [facility] Stop: 09/30/19 12:00 Last Infusion: 09/30/19 12:55 Dose: 0 mls/hr Documented by: [id number] Admin: 09/30/19 12:12 Dose: 999 mls/hr Documented by: [id number] Description This is a 21 electrode EEG wThis EEG was as a bedside recording is of good technical quality with few or no muscle movement artifacts. Simultaneous video analysis of patient movement and behavior was obtained. Drowsiness and light sleep not obtained. Photic stimulation was performed. Under these conditions there is evidence of what appears to be a normal background alpha rhythm of up to 10 to 11 Hz and maximum frequency of up to 30 V maximal amplitude which is maximum posterior head regions bilaterally symmetrical. Mid frequency modest voltage theta activity seen centrally and symmetrically. Beta activity seen bifrontally. Extremities provokes a modest driving response without a photo myogenic or photoparoxysmal component. No time during waking tracing is evidence for potentially epileptogenic activityith a single channel dedicated to limited EKG. The electrodes were placed in accordance with the International 10-20 system. Interpretation Is a normal EEG which reveals no evidence for focal or generalized encephalopathy and no evidence for potentially epileptogenic activity Clinical Correlation This EEG is normal and does not indicate evidence for ongoing potentially epileptogenic activity or nonconvulsive seizures Olaf Larkin MD
[2019-10-02] MEDS ORDERED: WARFARIN SOD 5 MG TAB PO SCH (16:00)
--- NOTE | 2019-10-02 16:40 | Communication Note ---
Date of Service: October 02, 2019
--- NOTE | 2019-10-02 16:51 | Communication Note ---
Date of Service: October 02, 2019 I saw Dallin today. He is better but still confused disoriented knows he is in the hospital but at times acts as if he is back in his apartment, can come up with my name, think some the physician is in charge of sending him home which is not going to happen today but otherwise he has no real focal signs which is surprising considering the fact his MRI shows a fairly large deep right frontal infarction involving the basal ganglia with some edema but no hemorrhage. Dr. Pool and I discussed the case and we are not going to start him on any steroids which are unlikely to help vasogenic edema anyway and frankly in light of his lack of motor system signs specifically of left hemiparesis of drift of the arm lack of facility, denial of deficits, visual field cut etc. I do not think he needs anything. He does have some head deviation to the right which may be the only manifestation of the infarction in addition to his confusional condition This occurred while on Coumadin and is probably embolic. The carotid duplex shows nothing of significance and I wonder if aspirin should be added at this point but have suggested that cardiology get involved in this decision as Dallin does have a high fall risk and adding aspirin to his Coumadin simply adds to the bleeding risk should he fall again I think he is going to need rehabilitation I suggest we do a CT scan of the brain tomorrow to be sure the edema has not increased and there is no hemorrhage Dr. Gipson will be assuming the service and I will ask them to make at least one visit to [facility] bedside, to assess the CT scan results and make any further suggestions but I do not think neurology needs to make regular visits during the hospital stay if nothing changes and I should see him back in follow-up in about 6 weeks which may already have been scheduled for his routine visits with me I will attempt to get in touch with his sister zoe and keep her updated on his condition Olaf Larkin MD
--- NOTE | 2019-10-02 17:40 | Hospitalist Progress Note ---
Date of Service October 02, 2019 Assessment & Plan (1) Fall: Fall Likely due to CVA CT head:No acute intracranial findings. No change in mild ventricular dilatation since MRI of April 11, 2017. This likely due to atrophy. No calvarial fracture. CT neck:No fractures within the cervical spine. Moderate degenerative change. No acute process. Normal Vit B 12 levels PT/OT eval Case management consulted to help with placement Fall precautions Acute CVA --MRI Brain:Acute infarct involving the right basal ganglia, anteromedial right frontal lobe and genu and rostrum of the corpus callosum. Mild mass effect. No hemorrhage. This finding will be called/faxed to the ordering provider at time of dictation. No change in mild ventricular dilatation which is likely due to atrophy. --Carotid Doppler:Moderate plaque without evidence for hemodynamically significant stenosis within the bilateral cervical internal carotid arteries. Findings suggestive of stenoses of the bilateral external carotid arteries, more severe on the left. --ECHO: No evidence of ASD. EF 55 to 60%. --Started on Aspirin --Also on coumadin --Continue Lipitor --Appreciate Neurology Input --May need Rehab placement --Will repeat CT head in AM Orthostatic hypotension Positive Orthostatics Discontinue amlodipine Monitor BP and adjust meds as needed (2) Acute confusion: Acute Metabolic Encephalopathy CT head:No acute intracranial findings. No change in mild ventricular dilatation since MRI of April 11, 2017. This likely due to atrophy. No calvarial fracture. MRI Brain as above Likely due to acute CVA EEG:Is a normal EEG which reveals no evidence for focal or generalized encephalopathy and no evidence for potentially epileptogenic activity Normal Vit B12, TSH, RPR Urine not suggestive of UTI Appreciate Neurology Input (3) Atrial fibrillation: Paroxysmal atrial fibrillation Chronic Bradycardia Continue Amiodarone, Metoprolol Continue Coumadin Monitor INR:2.1 (4) Hypertension: Continue Lisinopril, Metoprolol Amlodipine discontinued as orthostatic hypotension (5) Bradycardia: Monitor (6) GERD (gastroesophageal reflux disease): Continue famotidine (7) BPH (benign prostatic hyperplasia): Continue doxazosin (8) COPD (chronic obstructive pulmonary disease): Per PCP records, not currently on any inhalers No signs of exacerbation (9) Anticoagulated on warfarin: Monitor INR (10) Dyslipidemia: Continue Atorvastatin DVT Px: Coumadin Code Status Full Code Disposition Likely needs Rehab placement Admission and Anticipated Discharge Date Admission Date: September 30, 2019 Subjective Patient is seen and examined at bedside States feeling tired Remains confused Chronic neck pain is controlled Discussed with patient's sister and Neurology today Review of Systems Review of Systems: All systems reviewed & are unremarkable except as noted in HPI & below Physical Exam Physical Exam: Physical Exam: Vitals signs as noted above General Appearance:Thin, no apparent distress Head: normocephalic, Atraumatic Eyes: normal inspection, EOMI Neck: supple, Trachea midline Respiratory/Chest: Normal breath sounds, CTA, No accessory muscle use Cardiovascular: S1, S2, No murmur Abdomen/GI:Soft, Non tender, Bowel sounds present Extremities/Musculoskelatal:normal inspection, no edema Neurologic/Psych:Alert, awake, confused, grossly no focal neurological deficits Skin: normal color, warm Results & Data Results & Data ([facility]) Vital Signs (Past 12 Hours) Vital Signs Temp Pulse Pulse Resp BP BP Pulse Ox 10/02/19 16:41 36.7 C 68 18 136/53 L 92 10/02/19 11:36 36.9 C 57 L 16 151/59 H 94 10/02/19 07:56 36.5 C 93 H 16 152/61 H 96 10/02/19 07:00 49 L Laboratory Results Short CBC 10/02/19 Range/Units 05:46 WBC 5.50 (4.8-10.8) K/uL Hgb 11.8 L (14.0-18.0) g/dL Hct 36.1 L (42-52) % Plt Count 146 (130-400) K/uL BMP 10/02/19 05:46 Sodium 142 Potassium 3.8 Chloride 111 H Carbon Dioxide 26 BUN 34 H Creatinine 1.65 H Glucose 98 Calcium 7.9 L (1) Fall Encounter type: initial encounter Qualified Code(s): W19.XXXA - Unspecified fall, initial encounter (2) Atrial fibrillation Atrial fibrillation type: paroxysmal Qualified Code(s): I48.0 - Paroxysmal atrial fibrillation (3) Hypertension Hypertension type: essential hypertension Qualified Code(s): I10 - Essential (primary) hypertension (4) GERD (gastroesophageal reflux disease) Esophagitis presence: without esophagitis Qualified Code(s): K21.9 - Gastro- esophageal reflux disease without esophagitis (5) BPH (benign prostatic hyperplasia) Lower urinary tract symptom presence: symptoms present Lower urinary tract symptom detail: weak urinary stream Qualified Code(s): N40.1 - Benign prostatic hyperplasia with lower urinary tract symptoms; R39.12 - Poor urinary stream (6) COPD (chronic obstructive pulmonary disease) COPD type: emphysema Emphysema type: centrilobular Qualified Code(s): J43.2 - Centrilobular emphysema
[2019-10-02] MEDS: DOXAZOSIN MESYLATE 1 MG TAB PO SCH (20:35)
[2019-10-02] MEDS: ACETAMINOPHEN 325 MG TAB PO PRN (20:39)
[2019-10-02] MEDS ORDERED: ATORVASTATIN 40 MG TAB PO SCH (21:00)
[2019-10-03 07:30] LABS: Hemoglobin 12.1 g/dL (14.0-18.0)
[2019-10-03 07:38] LABS: Prothrombin Time 20.1 Seconds (9.0-12.0)
[2019-10-03 08:00] LABS: BUN Creatinine Ratio 22.7 (10-20); Calcium 8.1 mg/dl (8.5-10.1); Creatinine Clr Calc Pharmacy 34.6 ml/min; Est GFR (Non-African American) 32.8; Potassium 3.9 mmol/L (3.5-5.1)
--- NOTE | 2019-10-03 08:16 | CT Scan Report ---
CT head/brain wo con CLINICAL HISTORY: 79 years-old Male with CVA, Mass effect. Acute strokelike symptoms TECHNIQUE: Multiple axial CT images of the head were obtained without contrast. A dose lowering tech nique was utilized adhering to the principles of ALARA. CT DOSE: 691.05 mGy.cm COMPARISON: Brain MRI 10/01/2019, head CT 09/30/2019 FINDINGS: Evolving subacute infarct of the right caudate nucleus, periventricular right frontal lobe, anteromed ial right frontal lobe and rostrum and genu of the corpus callosum redemonstrated. Progressive cytoto xic edema most pronounced in the right caudate nucleus is noted resulting in mild mass effect upon th e frontal and right lateral ventricle. Age-related involutional changes with ex vacuo ventriculomegal y. No hydrocephalus. Patchy white matter hypodensities suggest chronic microvascular ischemic disease . No midline shift or intracranial hemorrhage. Cerebral vascular calcifications. Trace mastoid effusions. Mild mucosal thickening of the ethmoid air cells and right maxillary sinus. Soft tissues and orbits are unremarkable. IMPRESSION: Evolving subacute infarct of the right caudate nucleus, periventricular and anteromedial right frontal lobe and corpus callosum is noted with progressive cytotoxic edema. This is again note d to cause mass effect with partial effacement of the frontal horn of the right lateral ventricle. No hydrocephalus, midline shift or acute intracranial hemorrhage. ACT 112: Negative or not required by law. The above report was generated using voice recognition software. It may contain grammatical, syntax o r spelling errors. Electronically signed by: Bob Hernandez M.D. 10/03/2019 8:14 AM
[2019-10-03] MEDS: FAMOTIDINE 20 MG TAB PO SCH (08:23)
[2019-10-03] MEDS: AMIODARONE 200 MG TAB PO SCH (08:23)
[2019-10-03] MEDS: METOPROLOL SUCC 25MG EXT REL TAB PO SCH (08:23)
[2019-10-03] MEDS: lisinopriL 40 MG TAB PO SCH (08:24)
[2019-10-03] MEDS: ASPIRIN 81 MG ECTAB PO SCH (08:24)
[2019-10-03] MEDS ORDERED: SODIUM CHLORIDE 0.9% 1000ML 1,000 ML IV SCH (08:30)
--- NOTE | 2019-10-03 14:19 | Hospitalist Progress Note ---
Date of Service October 03, 2019 Assessment & Plan (1) Fall: Fall Likely due to CVA CT head:No acute intracranial findings. No change in mild ventricular dilatation since MRI of April 11, 2017. This likely due to atrophy. No calvarial fracture. CT neck:No fractures within the cervical spine. Moderate degenerative change. No acute process. Normal Vit B 12 levels PT/OT eval Case management consulted to help with placement Fall precautions Acute CVA --MRI Brain:Acute infarct involving the right basal ganglia, anteromedial right frontal lobe and genu and rostrum of the corpus callosum. Mild mass effect. No hemorrhage. This finding will be called/faxed to the ordering provider at time of dictation. No change in mild ventricular dilatation which is likely due to atrophy. --Carotid Doppler:Moderate plaque without evidence for hemodynamically significant stenosis within the bilateral cervical internal carotid arteries. Findings suggestive of stenoses of the bilateral external carotid arteries, more severe on the left. --ECHO: No evidence of ASD. EF 55 to 60%. --Repeat CT head on 10/03/19:Evolving subacute infarct of the right caudate nucleus, periventricular and anteromedial right frontal lobe and corpus callosum is noted with progressive cytotoxic edema. This is again noted to cause mass effect with partial effacement of the frontal horn of the right lateral ventricle. No hydrocephalus, midline shift or acute intracranial hemorrhage. --Continue Aspirin 81mg daily --Also on Coumadin --Continue Lipitor --Appreciate Neurology Input --Needs Rehab placement Orthostatic hypotension Positive Orthostatics Discontinue amlodipine Monitor BP and adjust meds as needed (2) Acute confusion: Acute Metabolic Encephalopathy CT head:No acute intracranial findings. No change in mild ventricular dilatation since MRI of April 11, 2017. This likely due to atrophy. No calvarial fracture. MRI Brain as above Likely due to acute CVA EEG:Is a normal EEG which reveals no evidence for focal or generalized encephalopathy and no evidence for potentially epileptogenic activity Normal Vit B12, TSH, RPR Urine not suggestive of UTI Appreciate Neurology Input (3) Atrial fibrillation: Paroxysmal atrial fibrillation Chronic Bradycardia Continue Amiodarone, Metoprolol Continue Coumadin Monitor INR:2.0 (4) Hypertension: Continue Lisinopril, Metoprolol Amlodipine discontinued as orthostatic hypotension (5) Bradycardia: Monitor (6) GERD (gastroesophageal reflux disease): Continue famotidine (7) BPH (benign prostatic hyperplasia): Continue doxazosin (8) COPD (chronic obstructive pulmonary disease): Per PCP records, not currently on any inhalers No signs of exacerbation (9) Anticoagulated on warfarin: Monitor INR (10) Dyslipidemia: Continue Atorvastatin DVT Px: Coumadin Code Status Full Code Disposition Acute Rehab Admission and Anticipated Discharge Date Admission Date: September 30, 2019 Subjective Patient is seen and examined at bedside Sitting in chair comfortably No new complaints ? Seemed to have mild headache earlier today Confused intermittently Denies chest pain, shortness of breath, dizziness, nausea, abdominal pain Review of Systems Review of Systems: All systems reviewed & are unremarkable except as noted in HPI & below Physical Exam Physical Exam: Physical Exam: Vitals signs as noted above General Appearance:Thin, no apparent distress Head: normocephalic, Atraumatic Eyes: normal inspection, EOMI Neck: supple, Trachea midline Respiratory/Chest: Normal breath sounds, CTA, No accessory muscle use Cardiovascular: S1, S2, No murmur Abdomen/GI:Soft, Non tender, Bowel sounds present Extremities/Musculoskelatal:normal inspection, no edema Neurologic/Psych:Alert, awake, confused, grossly no focal neurological deficits Skin: normal color, warm Results & Data Results & Data ([facility]) Vital Signs (Past 12 Hours) Vital Signs Temp Pulse Pulse Resp BP BP Pulse Ox 10/03/19 11:37 37.0 C 60 16 118/52 L 95 10/03/19 07:31 36.6 C 54 L 16 151/60 H 94 10/03/19 07:00 53 L 10/03/19 04:59 71 10/03/19 04:00 37.1 C 55 L 20 143/65 H 93 Laboratory Results Short CBC 10/03/19 Range/Units 07:16 Hgb 12.1 L (14.0-18.0) g/dL Hct 37.0 L (42-52) % BMP 10/03/19 07:16 Sodium 142 Potassium 3.9 Chloride 111 H Carbon Dioxide 25 BUN 43 H Creatinine 1.90 H Glucose 99 Calcium 8.1 L (1) Fall Encounter type: initial encounter Qualified Code(s): W19.XXXA - Unspecified fall, initial encounter (2) Atrial fibrillation Atrial fibrillation type: paroxysmal Qualified Code(s): I48.0 - Paroxysmal atrial fibrillation (3) Hypertension Hypertension type: essential hypertension Qualified Code(s): I10 - Essential (primary) hypertension (4) GERD (gastroesophageal reflux disease) Esophagitis presence: without esophagitis Qualified Code(s): K21.9 - Gastro- esophageal reflux disease without esophagitis (5) BPH (benign prostatic hyperplasia) Lower urinary tract symptom presence: symptoms present Lower urinary tract symptom detail: weak urinary stream Qualified Code(s): N40.1 - Benign prostatic hyperplasia with lower urinary tract symptoms; R39.12 - Poor urinary stream (6) COPD (chronic obstructive pulmonary disease) COPD type: emphysema Emphysema type: centrilobular Qualified Code(s): J43.2 - Centrilobular emphysema
--- NOTE | 2019-10-03 15:03 | Discharge Summary ---
Date of Service October 03, 2019 Admission HPI Per Admitting Provider This is a 79 y/o male with a PMH of paroxysmal atrial fibrillation on chronic anticoagulation, hx of TIA, chronic diastolic CHF, COPD/emphysema, GERD, dyslipidemia, HTN, venous insufficiency with hx of stasis ulcer, and CKD III, who was brought in via EMS after a fall at home. Per EMS, pt's home health aide came this morning and patient did not answer the door. When they entered, pt was found on the bathroom floor and was estimated to have been there for an hour to an hour and a half. Per pt, he became dizzy while in the bathroom and lowered himself to the floor but did not actually fall today. However, he does report that he has had increased issues with falling over the past few weeks although the exact history is unclear. He currently complains of pain in his lower back and right knee but reports these are chronic issues and not worse than usual. Denies chest pain, increased shortness of breath, headache, or congestion. He notes a chronic cough that is unchanged from usual. His main concern at present is when he can order his dinner and that he does not have his compression stockings on. I did attempt to reach his sister in [place] several times but was unable to do so. Admission Exam Per Admitting Provider Physical Exam Constitutional: WD/WN, vitals as above no acute distress Eyes: PERRL, conjunctivae normal, anicteric sclerae EOM intact bilaterally ENMT: external ear and nose normal, oropharynx normal Neck: trachea midline Respiratory: no respiratory distress and no retractions Auscultation: lungs clear to auscultation bilaterally; no rales, no rhonchi and no wheezes Cardiovascular: Rate/Rhythm: regular rhythm and + bradycardic Extremities: normal capillary refill and + edema (trace LE edema) Gastrointestinal (Abdomen): Inspection/Auscultation: normal bowel sounds; abdomen not distended Percussion/Palpation: abdomen soft; abdomen nontender Musculoskeletal: Head/Neck/Chest: neck supple Extremities: no cyanosis Skin: no rashes, warm and dry Multiple small areas of ecchymosis on bilateral UE and LE Neurologic: moves all extremities Speech / Cognition: normal speech Motor/Sensory: + tremor (bilateral UE - right > left) Principal Diagnosis Acute cerebrovascular accident Acute metabolic encephalopathy Fall Discharge Data Allergies Allergy/AdvReac Type Severity Reaction Status Date / Time guaifenesin AdvReac Unknown GETS Verified 09/30/19 11:52 REALLY SICK FROM MUCINEX Consultations 09/30/19 14:41 ED Decision to Admit Stat 09/30/19 16:38 Consult Case Management - Discharge Planning Routine 10/01/19 15:02 Consult Neurology Routine Procedures Performed --MRI Brain:Acute infarct involving the right basal ganglia, anteromedial right frontal lobe and genu and rostrum of the corpus callosum. Mild mass effect. No hemorrhage. This finding will be called/faxed to the ordering provider at time of dictation. No change in mild ventricular dilatation which is likely due to atrophy. --Carotid Doppler:Moderate plaque without evidence for hemodynamically significant stenosis within the bilateral cervical internal carotid arteries. Findings suggestive of stenoses of the bilateral external carotid arteries, more severe on the left. --ECHO: No evidence of ASD. EF 55 to 60%. --Repeat CT head on 10/03/19:Evolving subacute infarct of the right caudate nucleus, periventricular and anteromedial right frontal lobe and corpus callosum is noted with progressive cytotoxic edema. This is again noted to cause mass effect with partial effacement of the frontal horn of the right lateral ventricle. No hydrocephalus, midline shift or acute intracranial hemorrhage. Ordered Studies 09/30/19 11:30 CT head/brain wo con Stat 09/30/19 11:32 CT cervical spine wo con Stat 10/01/19 15:04 MR brain wo con Urgent 10/02/19 09:00 US carotid doppler BI Routine 10/03/19 07:00 CT head/brain wo con Routine Hospital Course (1) Fall: Fall Likely due to CVA CT head:No acute intracranial findings. No change in mild ventricular dilatation since MRI of April 11, 2017. This likely due to atrophy. No calvarial fracture. CT neck:No fractures within the cervical spine. Moderate degenerative change. No acute process. Normal Vit B 12 levels PT/OT eval Case management consulted to help with placement Fall precautions Acute CVA --MRI Brain:Acute infarct involving the right basal ganglia, anteromedial right frontal lobe and genu and rostrum of the corpus callosum. Mild mass effect. No hemorrhage. This finding will be called/faxed to the ordering provider at time of dictation. No change in mild ventricular dilatation which is likely due to atrophy. --Carotid Doppler:Moderate plaque without evidence for hemodynamically significant stenosis within the bilateral cervical internal carotid arteries. Findings suggestive of stenoses of the bilateral external carotid arteries, more severe on the left. --ECHO: No evidence of ASD. EF 55 to 60%. --Repeat CT head on 10/03/19:Evolving subacute infarct of the right caudate nucleus, periventricular and anteromedial right frontal lobe and corpus callosum is noted with progressive cytotoxic edema. This is again noted to cause mass effect with partial effacement of the frontal horn of the right lateral ventricle. No hydrocephalus, midline shift or acute intracranial hemorrhage. --Continue Aspirin 81mg daily ( OK with starting aspirin) --Also on Coumadin --Continue Lipitor --Appreciate Neurology Input --Needs Rehab placement --Plan to repeat CT head in 1 week as recommended by neurology. Orthostatic hypotension Positive Orthostatics Discontinue amlodipine Monitor BP and adjust meds as needed (2) Acute confusion: Acute Metabolic Encephalopathy CT head:No acute intracranial findings. No change in mild ventricular dilatation since MRI of April 11, 2017. This likely due to atrophy. No calvarial fracture. MRI Brain as above Likely due to acute CVA EEG:Is a normal EEG which reveals no evidence for focal or generalized encephalopathy and no evidence for potentially epileptogenic activity Normal Vit B12, TSH, RPR Urine not suggestive of UTI Appreciate Neurology Input (3) Atrial fibrillation: Paroxysmal atrial fibrillation Chronic Bradycardia Continue Amiodarone, Metoprolol Continue Coumadin Monitor INR:2.0 (4) Hypertension: Continue Lisinopril, Metoprolol Amlodipine discontinued as orthostatic hypotension (5) Bradycardia: Monitor (6) GERD (gastroesophageal reflux disease): Continue famotidine (7) BPH (benign prostatic hyperplasia): Continue doxazosin (8) COPD (chronic obstructive pulmonary disease): Per PCP records, not currently on any inhalers No signs of exacerbation (9) Anticoagulated on warfarin: Monitor INR (10) Dyslipidemia: Continue Atorvastatin DVT Px: Coumadin Code Status Full Code Disposition Acute Rehab Total Time Total Time Spent Total Time Spent (In Minutes): 45 minutes Discharge Plan Discharge Items Patient Disposition: Transfer Inpatient Rehab Fac Reason For Visit: FALL CONFUSION Discharge Diagnosis: Acute cerebrovascular accident Acute metabolic encephalopathy Fall Activity: Per Instructions section Exercise/Sports: Gradually increase as tolerated Non-emergency contact: Primary Care Provider and Neurologist Call non-emergency contact if: you have any medication questions, your symptoms worsen, your pain is not controlled, your pain is worsening, your pain is unusual for you, your pain is concerning for you and you have a fever Follow-up/Referrals: Olaf Roldan MD [Primary Care Provider] - Diet: Heart Healthy Ambulatory Orders: Basic Metabolic Panel (Routine) Timeframe: 3 Days Location: Determined by Patient Ordered By: Cecilio Elizabeth CT head/brain wo con (Routine) Timeframe: 1 Week Location: Determined by Patient Ordered By: Cecilio Elizabeth Addtl Attending Provider Instructions: Follow-up with your primary care physician Dr. Roldan in 1 week after discharge from rehab facility Follow-up with your neurologist Dr. Larkin on October 16, 2019 at 12 PM as scheduled Get Basic Metabolic panel in 3 days and follow up with your physician () with results Can hold taking Furosemide for [address] HEAD IN 1 WEEK AND FOLLOW UP WITH YOUR NEUROLOGIST WITH RESULTS Seek immediate medical attention if your symptoms reoccur or worsen Risk Factors for Stroke: You can reduce your chances of stroke by working with your medical provider to adopt a healthy lifestyle. Some specific ways to lower your chance of stroke are: * If you are a smoker, now is the time to stop smoking cigarettes * If you are diabetic, improve the control of your blood sugars * Avoid excessive amounts of alcohol * Control high blood pressure * Lose weight if you are overweight * Be sure to lead an active lifestyle * Eat a healthy diet low in salt, cholesterol and fat You should know about other risk factors for stroke that you are unable to control. These include: * Age 55 years or older * Male gender * Certain racial groups: , or / * Family History of Stroke, Mini stroke or Heart Attack * Sickle Cell Disease Follow Up: It is important for you to keep your follow up appointments with your medical provider. Who to Call and When: Medical Emergencies: Call 911 immediately if you experience any of the following warning signs and symptoms of Stroke: * Sudden numbness or weakness of the face, arm or leg, especially on one side of the body * Sudden confusion, trouble speaking or understanding * Sudden trouble seeing in one or both eyes * Sudden trouble walking, dizziness, loss of balance or coordination * Sudden severe headache with no cause Do not delay calling 911 if you experience any warning signs or symptoms of a stroke. Delay in seeking medical attention may affect what treatments can be given to you. . Pending Studies at Discharge: No Stand-Alone Forms: My [facility] Skilled Items Patient informed of condition?: Yes DNR: No Discharge Level of Care: Acute rehab Communicable Disease: No Discharge Prognosis: Stable Lines: None Urinary Catheter: No Medications and DC Order Prescriptions: New atorvastatin 40 mg Tablet 40 mg PO QPM 30 Days Qty: 30 RF: 1 aspirin 81 mg Tablet,Delayed Release (Dr/Ec) 81 mg PO QAM 30 Days Qty: 30 RF: 0 Continued amiodarone 200 mg tablet 200 mg PO QAM RF: 0 famotidine 20 mg tablet 20 mg PO AMPM RF: 0 lisinopril 40 mg tablet 40 mg PO QAM RF: 0 lorazepam 0.5 mg tablet 0.5 mg PO BID PRN (Reason: Anxiety) RF: 0 magnesium oxide 400 mg magnesium tablet 400 mg PO BID RF: 0 furosemide 40 mg tablet 40 mg PO DAILY RF: 0 doxazosin 1 mg Tablet 1 mg PO HS RF: 0 warfarin 5 mg Tablet 5 mg PO UD RF: 0 metoprolol succinate 25 mg Tablet Extended Release 24 Hr 12.5 mg PO DAILY RF: 0 warfarin 5 mg tablet 2.5 mg PO UD RF: 0 Discontinued atorvastatin 20 mg tablet 20 mg PO QPM RF: 0 amlodipine 2.5 mg Tablet 2.5 mg PO DAILY RF: 0 Discharge Orders: Discharge Order (Routine); Ordered 10/03/19 Ordered By: Cecilio Elizabeth Admission Data Admit Date/Time: 09/30/19 14:49 Attending Provider: Cecilio Elizabeth Admit Provider: Olaf Gabriel Primary Care Provider: Olaf Roldan Other Providers: Olaf Gabriel ; Olaf Larkin ; [facility] Other Interventions: Discharge Summary Assessment (RN) Last Done: 10/03/19 15:16 DC Date/Time DO NOT enter until pt leaves facility: 10/03/19 16:00
[2019-10-03] MEDS: WARFARIN SOD 2.5 MG TAB PO SCH (15:28)
== END 2019-10-03 16:00 | DRG 64 ==
LOC: ED 10:45 → SUATTDRO 14:49 → 2W 14:49 → 2N 10-01 12:22

== ENCOUNTER 2021-04-04 09:40 | Inpatient (IN) ==
[2021-04-04] MEDS ORDERED: CEFEPIME 2,000 MG/20 ML VIAL IV STA (09:59)
[2021-04-04] MEDS ORDERED: SODIUM CHLORIDE 0.9% 1000ML 1,000 ML IV SCH ×2 (10:00→15:15)
[2021-04-04] MEDS ORDERED: ACETAMINOPHEN 1000 MG/100 ML IV IV STA (10:01)
--- NOTE | 2021-04-04 10:08 | Emergency Department Note ---
Impression & Plan Weakness, Acute UTI, Ureteral stone, COVID-19 ED Provider Note NAME: CATIA WOODWARD JR AGE: 80 SEX: M : 1940 ARRIVES VIA: Ambulance INFORMANT: [Patient][nursing] ED PROVIDER(S): [Robert Whitfield MD] CHIEF COMPLAINT: Weakness HISTORY OF PRESENT ILLNESS: The patient is an 80-year-old male with a history of CVA. The patient was noted to be weaker and not quite himself 3 days ago. This has persisted throughout the weekend and into today. Today he seemed a bit worse in that he had a hard time walking was leaning to the right and was noted to be drooling. He by report, fell yesterday without suffering any injury. The patient currently complains of some lower and left sided back pain. This is moderate in severity. He admits to a slight cough but states this is chronic. He is not short of breath. There has been no reported vomiting or diarrhea. No rash. As per EMS, his blood sugar was 104. He was sent here for evaluation for possible CVA. He has had a previous CVA and is currently on Coumadin. REVIEW OF SYSTEMS: See HPI for pertinent positives and negatives. A total of ten systems were reviewed and were otherwise negative. PMHx/PSHx: See Below SOCIAL HISTORY: See Below. PHYSICAL EXAM: GENERAL: Patient is in no acute distress. HEENT: No acute trauma, normocephalic atraumatic, mucous membranes moist, no nasal congestion, no scleral icterus. NECK: No stridor, no adenopathy, no meningismus, trachea is midline. LUNGS: Clear to auscultation bilaterally, no wheeze, no rhonchi, breath sounds equal. HEART: Irregular, no murmurs, normal rate. ABDOMEN: Soft, nontender, bowel sounds positive, no hernias, no peritonitis. EXTREMITIES: No cyanosis, mild bilateral pedal edema, full range of motion of all the joints without pain or difficulty, no signs for acute trauma. NEUROLOGIC: Awake and alert, no speech slur, no acute motor or sensory deficits, no focal weakness. Equal hand grasp. Moves legs equally. SKIN: No rash, no jaundice, no diaphoresis. DIFFERENTIAL DIAGNOSIS: Infection, UTI, COVID-19, influenza, dehydration, metabolic abnormality, hypo/hyperglycemia, electrolyte disturbance, anemia, hypoxia, cardiac sources, intracerebral event, toxicologic issues, stroke, TIA, as well as other pathologies. EMERGENCY DEPARTMENT COURSE/PROCEDURES: ECG: Indication was weakness. The ECG shows atrial fibrillation with a rate of 93. There is some nonspecific ST change. There is a nonspecific interventricular block. There is no ST elevation, no PVCs. The QTc is 489. Continuous Cardiac Monitoring: An order was placed for continuous cardiac monitoring. The monitor shows a rate of 89 with atrial fibrillation. Critical Care Note: I have personally spent 48 minutes of critical care time in the direct management of this patient. This includes bedside care, interpretation of diagnostic studies, and testing, discussion with consultants, patient, and family members, and other required patient management activities. This 48 minutes is in excess of all separately billable procedures. MEDICAL DECISION MAKING: There is no leukocytosis. The patient is anemic but this is baseline looking back at previous testing. There is a normal platelet count. INR is 1.4, he is under anticoagulated with his Coumadin. There is evidence for some renal insufficiency, this is baseline. No concerning electrolyte abnormality. Lactic acid level is elevated consistent with infection and/or dehydration. No concerning liver enzyme elevation. ECG shows atrial fibrillation, no obvious ischemia. Cardiac enzyme testing x1 is not consistent with acute cardiac injury. The patient appears to be in a euthyroid state. Urinalysis does suggest infection. Covid testing returned positive. Influenza testing returned negative. Chest film shows some chronic change, no pneumonia or CHF. Brain CT shows no acute bleed or mass-effect. Abdominal and pelvis CT shows a left sided proximal ureteral stone. Lumbar spine CT does not show any acute fracture. On exam, the patient did not seem in any significant distress. He was febrile. Blood pressure was at times somewhat low. The patient was aggressively managed given his findings. He received IV saline, 1.5 L. He was given IV cefepime as empiric antibiotic coverage. He received IV Tylenol for his fever. The patient was a bit hypotensive here, he did respond to IV fluids. I discussed my findings with the patient and his power of worm raiser. The patient is in need of a hospital stay. I consulted urology given the ureteral stone and concern for urinary infection. The patient will be stented emergently. I spoke with case management, the on-call hospitalist was consulted. In short, the patient presents with weakness. He was febrile. I think the weakness is from infection, no findings of acute CVA. Past Med/Surg History Medical History A-fib Anxiety Aortic aneurysm BPH (benign prostatic hyperplasia) CAD (coronary artery disease) Cerebrovascular disease "history of TIA" CHF (congestive heart failure) Chronic diastolic (congestive) heart failure Chronic diastolic heart failure COPD (chronic obstructive pulmonary disease) Diverticulosis Dyslipidemia GERD (gastroesophageal reflux disease) History of basal cell carcinoma of skin History of squamous cell carcinoma of skin HTN (hypertension) Hypertension Impaired gait and mobility MRSA nasal colonization Neuropathy Sinusitis TIA (transient ischemic attack) Venous insufficiency Surgical History H/O arthroscopic knee surgery H/O thoracic aortic aneurysm repair History of aortic valve replacement 11/22/2015 - Dr. 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 Family History Other Diabetes Hypertension Social History Smoking Status: Former smoker Tobacco Type: Cigarettes Preferred Language: [place] Communication Ability: Effective Visual Impairment: Limited Hearing Ability: Hard of Hearing Mobile Security Architect Required: No Beliefs That Will Affect Care: None marital status: Current Living Situation: Other Current Living Situation Comment: [employer] current occupational status: retired How many Children do You have: 2 Feels Safe at Home: Yes Assistive Devices: Walker Allergies Allergies Allergy/AdvReac Type Severity Reaction Status Date / Time guaifenesin AdvReac Unknown GETS Verified 04/04/21 10:18 REALLY SICK FROM MUCINEX Home Meds Home Medications Medication Instructions Recorded Confirmed amiodarone 200 mg tablet 200 mg PO QAM 05/22/18 04/04/21 magnesium oxide 400 mg PO BID 05/22/18 04/04/21 doxazosin 1 mg tablet 1 mg PO QPM 03/12/19 04/04/21 metoprolol succinate 25 mg 12.5 mg PO QAM 03/12/19 04/04/21 tablet,extended release 24 hr acetaminophen 325 mg tablet 650 mg PO QID PRN 05/31/20 04/04/21 docusate sodium 100 mg tablet 100 mg PO BID 05/31/20 04/04/21 nystatin 100,000 unit/gram topical 1 applic TOPICAL BID PRN 05/31/20 04/04/21 powder polyethylene glycol 3350 17 17 g PO QDL PRN 05/31/20 04/04/21 gram/dose oral powder (Miralax) aspirin 81 mg tablet,delayed 81 mg PO DAILY 04/04/21 04/04/21 release atorvastatin 40 mg tablet 40 mg PO DAILY 04/04/21 04/04/21 famotidine 20 mg tablet 20 mg PO BID 04/04/21 04/04/21 furosemide 20 mg tablet 20 mg PO MOWEFR@0900 04/04/21 04/04/21 lisinopril 10 mg tablet 10 mg PO QAM 04/04/21 04/04/21 risperidone 0.5 mg tablet 0.5 mg PO BID 04/04/21 04/04/21 warfarin 3 mg tablet 3 mg PO DAILY 04/04/21 04/04/21 Results & Data (ED) Vital Signs Vital Signs - 24 hr 04/04/21 09:42 04/04/21 09:54 04/04/21 10:00 Temperature 38.4 C H Temperature Source Oral Pulse Rate 91 H 89 90 Pulse Rate from SpO2 Sensor 90 Pulse Rhythm Irregular Respiratory Rate 20 18 18 Respiratory Effort / Characteristics Non-Labored Spontaneous Respiratory Depth Normal Respiratory Pattern Regular Blood Pressure 120/67 110/58 L Blood Pressure Mean 84 75 Pulse Oximetry 96 96 Oxygen Delivery Method Room Air Sepsis Recent Fever Within 48 Hours No Sepsis New/Unexplained Change in Mental Status No Sepsis Action Taken by Nursing No Action Required 04/04/21 10:30 04/04/21 11:00 04/04/21 11:30 Temperature Temperature Source Pulse Rate 100 H 78 85 Pulse Rate from SpO2 Sensor Pulse Rhythm Respiratory Rate 20 23 20 Respiratory Effort / Characteristics Respiratory Depth Respiratory Pattern Blood Pressure 129/68 107/56 L 99/50 L Blood Pressure Mean 88 73 66 Pulse Oximetry 94 Oxygen Delivery Method Room Air Sepsis Recent Fever Within 48 Hours Sepsis New/Unexplained Change in Mental Status Sepsis Action Taken by Nursing 04/04/21 12:30 04/04/21 12:59 04/04/21 13:30 Temperature Temperature Source Pulse Rate 82 75 82 Pulse Rate from SpO2 Sensor 75 83 Pulse Rhythm Respiratory Rate 15 16 14 Respiratory Effort / Characteristics Respiratory Depth Respiratory Pattern Blood Pressure 99/53 L 111/53 L 101/52 L Blood Pressure Mean 68 72 68 Pulse Oximetry 92 94 Oxygen Delivery Method Sepsis Recent Fever Within 48 Hours Sepsis New/Unexplained Change in Mental Status Sepsis Action Taken by Nursing 04/04/21 14:00 Temperature Temperature Source Pulse Rate 84 Pulse Rate from SpO2 Sensor 84 Pulse Rhythm Respiratory Rate 16 Respiratory Effort / Characteristics Respiratory Depth Respiratory Pattern Blood Pressure 110/56 L Blood Pressure Mean 74 Pulse Oximetry 92 Oxygen Delivery Method Sepsis Recent Fever Within 48 Hours Sepsis New/Unexplained Change in Mental Status Sepsis Action Taken by Usp Medications Current Medication List: was personally reviewed by me Laboratory Data Attestation: I reviewed the patient's lab results. Result diagrams: 04/04/21 10:29 04/04/21 10:29 Lab Results 04/04/21 04/04/21 04/04/21 Range/Units 10:00 10:29 10:29 WBC 6.02 (4.8-10.8) K/uL RBC 3.93 L (4.7-6.1) M/uL Hgb 12.0 L (14.0-18.0) g/dL Hct 37.3 L (42-52) % MCV 94.9 (80-100) fL MCH 30.5 (25-34) pg MCHC 32.2 (32-36) g/dL RDW Std Deviation 49.3 H (36.4-46.3) fL RDW Coeff of Trinh 14.2 (11.5-14.5) % Plt Count 140 (130-400) K/uL MPV 10.5 H (7.4-10.4) fL Immature Gran % (Auto) 0.5 % Neut % (Auto) 82.9 % Lymph % (Auto) 8.3 % [place] % (Auto) 7.8 % Eos % (Auto) 0.5 % Baso % (Auto) 0.0 % Neut # (Auto) 4.99 (1.4-6.5) K/uL Lymph # (Auto) 0.50 L (1.2-3.4) K/uL [place] # (Auto) 0.47 (0.11-0.59) K/uL Eos # (Auto) 0.03 (0-0.5) K/uL Baso # (Auto) 0.00 (0-0.2) K/uL Immature Gran # (Auto) 0.03 H (0.00-0.02) K/uL PT (9.0-12.0) Seconds INR (0.9-1.1) Sodium 139 (136-145) mmol/L Potassium 5.0 (3.5-5.1) mmol/L Chloride 108 H (98-107) mmol/L Carbon Dioxide 25 (21-32) mmol/L Anion Gap 6 (3-11) BUN 31 H (6-23) mg/dl Creatinine 1.72 H (0.6-1.4) mg/dl Est Cr Clr Drug Dosing Not Reportable Est GFR ( Amer) 42.6 ml/min Est GFR (Non-Af Amer) 36.7 ml/min BUN/Creatinine Ratio 18.0 (10-20) Glucose 99 (70-99(Fasting)) mg/dl Lactate (0.4-2.0) mmol/L Calcium 8.4 L (8.5-10.1) mg/dl Magnesium 1.9 (1.7-2.4) mg/dl Total Bilirubin 0.8 (0.2-1.0) mg/dl AST 37 (13-39) U/L ALT 36 (7-52) U/L Alkaline Phosphatase 104 (34-104) U/L Troponin I 0.03 (0-0.04) ng/ml Total Protein 6.4 (6.0-8.3) gm/dl Albumin 3.6 (3.4-5.0) gm/dl Globulin 2.8 (2.5-4.0) gm/dl Albumin/Globulin Ratio 1.3 (0.9-2) TSH (0.300-4.500) uIu/ml Urine Color Yellow Urine Appearance Cloudy A (Clear) Urine pH 6.0 (4.5-7.5) Ur Specific [place] 1.019 (1.000-1.030) Urine Protein Trace H (Negative) Urine Glucose (UA) Negative (Negative) Urine Ketones Negative (Negative) Urine Blood 1+ H (Negative) Urine Nitrite Positive A (Negative) Urine Bilirubin Negative (Negative) Urine Urobilinogen Negative (Negative) Ur Leukocyte Esterase 3+ H (Negative) Urine WBC (Auto) >30 H (0-5) /hpf Urine RBC (Auto) 0-4 (0-4) /hpf U Hyaline Cast (Auto) 1-5 (0-5) /lpf U Epithel Cells (Auto) 0-5 (0-5) /lpf Urine Bacteria (Auto) 3+ H (Negative) Influ A Molecular Assay (Negative) Influ B Molecular Assay (Negative) SARS-CoV-2, RNA, NAAT (NEGATIVE) 04/04/21 04/04/21 04/04/21 Range/Units 10:29 10:29 10:32 WBC (4.8-10.8) K/uL RBC (4.7-6.1) M/uL Hgb (14.0-18.0) g/dL Hct (42-52) % MCV (80-100) fL MCH (25-34) pg MCHC (32-36) g/dL RDW Std Deviation (36.4-46.3) fL RDW Coeff of Trinh (11.5-14.5) % Plt Count (130-400) K/uL MPV (7.4-10.4) fL Immature Gran % (Auto) % Neut % (Auto) % Lymph % (Auto) % [place] % (Auto) % Eos % (Auto) % Baso % (Auto) % Neut # (Auto) (1.4-6.5) K/uL Lymph # (Auto) (1.2-3.4) K/uL [place] # (Auto) (0.11-0.59) K/uL Eos # (Auto) (0-0.5) K/uL Baso # (Auto) (0-0.2) K/uL Immature Gran # (Auto) (0.00-0.02) K/uL PT 13.9 H (9.0-12.0) Seconds INR 1.4 H (0.9-1.1) Sodium (136-145) mmol/L Potassium (3.5-5.1) mmol/L Chloride (98-107) mmol/L Carbon Dioxide (21-32) mmol/L Anion Gap (3-11) BUN (6-23) mg/dl Creatinine (0.6-1.4) mg/dl Est Cr Clr Drug Dosing Est GFR ( Amer) ml/min Est GFR (Non-Af Amer) ml/min BUN/Creatinine Ratio (10-20) Glucose (70-99(Fasting)) mg/dl Lactate 2.2 H* (0.4-2.0) mmol/L Calcium (8.5-10.1) mg/dl Magnesium (1.7-2.4) mg/dl Total Bilirubin (0.2-1.0) mg/dl AST (13-39) U/L ALT (7-52) U/L Alkaline Phosphatase (34-104) U/L Troponin I (0-0.04) ng/ml Total Protein (6.0-8.3) gm/dl Albumin (3.4-5.0) gm/dl Globulin (2.5-4.0) gm/dl Albumin/Globulin Ratio (0.9-2) TSH 0.959 (0.300-4.500) uIu/ml Urine Color Urine Appearance (Clear) Urine pH (4.5-7.5) Ur Specific [place] (1.000-1.030) Urine Protein (Negative) Urine Glucose (UA) (Negative) Urine Ketones (Negative) Urine Blood (Negative) Urine Nitrite (Negative) Urine Bilirubin (Negative) Urine Urobilinogen (Negative) Ur Leukocyte Esterase (Negative) Urine WBC (Auto) (0-5) /hpf Urine RBC (Auto) (0-4) /hpf U Hyaline Cast (Auto) (0-5) /lpf U Epithel Cells (Auto) (0-5) /lpf Urine Bacteria (Auto) (Negative) Influ A Molecular Assay (Negative) Influ B Molecular Assay (Negative) SARS-CoV-2, RNA, NAAT (NEGATIVE) 04/04/21 04/04/21 04/04/21 Range/Units 10:34 10:34 12:28 WBC (4.8-10.8) K/uL RBC (4.7-6.1) M/uL Hgb (14.0-18.0) g/dL Hct (42-52) % MCV (80-100) fL MCH (25-34) pg MCHC (32-36) g/dL RDW Std Deviation (36.4-46.3) fL RDW Coeff of Trinh (11.5-14.5) % Plt Count (130-400) K/uL MPV (7.4-10.4) fL Immature Gran % (Auto) % Neut % (Auto) % Lymph % (Auto) % [place] % (Auto) % Eos % (Auto) % Baso % (Auto) % Neut # (Auto) (1.4-6.5) K/uL Lymph # (Auto) (1.2-3.4) K/uL [place] # (Auto) (0.11-0.59) K/uL Eos # (Auto) (0-0.5) K/uL Baso # (Auto) (0-0.2) K/uL Immature Gran # (Auto) (0.00-0.02) K/uL PT (9.0-12.0) Seconds INR (0.9-1.1) Sodium (136-145) mmol/L Potassium (3.5-5.1) mmol/L Chloride (98-107) mmol/L Carbon Dioxide (21-32) mmol/L Anion Gap (3-11) BUN (6-23) mg/dl Creatinine (0.6-1.4) mg/dl Est Cr Clr Drug Dosing Est GFR ( Amer) ml/min Est GFR (Non-Af Amer) ml/min BUN/Creatinine Ratio (10-20) Glucose (70-99(Fasting)) mg/dl Lactate 1.0 (0.4-2.0) mmol/L Calcium (8.5-10.1) mg/dl Magnesium (1.7-2.4) mg/dl Total Bilirubin (0.2-1.0) mg/dl AST (13-39) U/L ALT (7-52) U/L Alkaline Phosphatase (34-104) U/L Troponin I (0-0.04) ng/ml Total Protein (6.0-8.3) gm/dl Albumin (3.4-5.0) gm/dl Globulin (2.5-4.0) gm/dl Albumin/Globulin Ratio (0.9-2) TSH (0.300-4.500) uIu/ml Urine Color Urine Appearance (Clear) Urine pH (4.5-7.5) Ur Specific [place] (1.000-1.030) Urine Protein (Negative) Urine Glucose (UA) (Negative) Urine Ketones (Negative) Urine Blood (Negative) Urine Nitrite (Negative) Urine Bilirubin (Negative) Urine Urobilinogen (Negative) Ur Leukocyte Esterase (Negative) Urine WBC (Auto) (0-5) /hpf Urine RBC (Auto) (0-4) /hpf U Hyaline Cast (Auto) (0-5) /lpf U Epithel Cells (Auto) (0-5) /lpf Urine Bacteria (Auto) (Negative) Influ A Molecular Assay Negative (Negative) Influ B Molecular Assay Negative (Negative) SARS-CoV-2, RNA, NAAT POSITIVE A* (NEGATIVE) Administered Medications Discontinued Medications Acetaminophen (Acetaminophen 1000 Mg/100 Ml Iv) 1,000 mg IV NOW STA Stop: 04/04/21 10:02 Last Admin: 04/04/21 10:30 Dose: 1,000 mg Documented by: [id number] Sodium Chloride (Nss 1000ml) 1,000 mls @ 999 mls/hr IV .Q1H1M IRAM Stop: 04/04/21 11:00 Last Infusion: 04/04/21 11:35 Dose: 0 mls/hr Documented by: [id number] Admin: 04/04/21 10:33 Dose: 999 mls/hr Documented by: [id number] Cefepime HCl (Maxipime) 2,000 mg in 20 mls @ 5 mls/min IV NOW STA; Protocol Stop: 04/04/21 10:02 Last Admin: 04/04/21 10:30 Dose: 5 mls/min Documented by: [id number] Sodium Chloride (Nss 1000ml) 500 mls @ 999 mls/hr IV .Q31M ONE Stop: 04/04/21 13:12 Last Infusion: 04/04/21 13:13 Dose: 0 mls/hr Documented by: [id number] Admin: 04/04/21 12:42 Dose: 999 mls/hr Documented by: [id number] Imaging Data Radiologist's Impression: Chest X-Ray 04/04/21 09:59 XR chest 1V portable CLINICAL HISTORY: weakness. Evaluate cardiopulmonary status COMPARISON STUDY: 09/30/2019 TECHNIQUE: 1 view of the chest FINDINGS: Single frontal view of the chest demonstrates the heart size to be within normal limits status post previous cardiothoracic surgery. There is a decreased inspiratory effort with elevation of the hemidiaphragms and crowding of the bronchovascular markings at the lung bases and centrally. The lungs are clear of alveolar opacities. There is no evidence for pleural effusion. There is no evidence for vascular congestion. There is no acute osseous pathology. IMPRESSION: There is a decreased inspiratory effort with otherwise no acute chest disease. ACT 112: Negative or not required by law. Electronically signed by: Tripp Tse M.D. 04/04/2021 10:[address] 04/04/21 09:59 CT SCAN OF THE BRAIN WITHOUT IV CONTRAST CLINICAL HISTORY: Fall. COMPARISON STUDY: CT of the brain dated 10/13/2019. TECHNIQUE: Unenhanced axial CT scan of the brain is performed from the vertex to the skull base. A dose lowering technique was utilized adhering to the principles of ALARA. FINDINGS: Brain parenchyma: There are age-related involutional changes noting mild subcortical and periventricular microangiopathic change. There is no hemorrhage, mass effect, or evidence of acute territorial ischemia by CT criteria. A chronic lacunar infarct is noted in the right basal ganglia. Peters-white matter differentiation is preserved. No extra-axial fluid collection is seen. Ventricles, sulci, cisterns: Prominent secondary to involutional change. Intracranial vasculature: There is atherosclerotic calcification of the cavernous carotid and vertebral arteries. Calvarium: The skeletal structures are osteopenic. There is no depressed calvarial fracture. Sinuses and mastoids: The visualized paranasal sinuses are clear. There is a small left mastoid effusion. The right mastoid air cells are well pneumatized. Orbits: The bony orbits are grossly intact. There are bilateral ocular lens implants. IMPRESSION: There is no hemorrhage, mass effect, or evidence of acute territorial ischemia by CT criteria. ACT 112: Negative or not required by law. Electronically signed by: Robert Hernandez M.D. 04/04/2021 1:02 PM Abdomen/Pelvis CT 04/04/21 11:45 CT abd pelvis wo con CLINICAL HISTORY: left back pain COMPARISON STUDY: 05/07/2016 CT DOSE: TECHNIQUE: Standard CT of the Abdomen and Pelvis was performed without IV contrast. The patient did not receive oral contrast. A dose lowering technique was utilized adhering to the principles of ALARA. FINDINGS: Lung base: There is minimal dependent edema/atelectasis at the lung bases, right slightly greater than Left. Extensive atherosclerotic calcification is seen involving the lower thoracic aorta which extends into the abdominal aorta. Mild cardiomegaly and coronary artery calcification is present with evidence for previous sternotomy. Abdominal cavity: There is no evidence for abdominal mass, adenopathy or ascites. Liver: The liver is homogeneous in attenuation on these limited noncontrast images.. Spleen: The spleen is homogeneous in attenuation on these limited noncontrast images. Pancreas: The pancreas is homogeneous in attenuation on these limited noncontrast images. Gall Bladder: The gallbladder is well distended with no evidence for cholelithiasis, wall thickening or pericholecystic edema.. Adrenal glands: The adrenal glands are normal in size and attenuation on these limited noncontrast images. Kidneys: Compared to the previous study, there is now mild hydronephrosis and swelling of the left kidney with perinephric stranding present. A 7 mm calculus is now seen at the right UPJ producing the mild obstruction present. No other renal calculi are present bilaterally. There is no evidence for right-sided hydronephrosis. Bowel: The bowel loops are normally placed within the abdomen and pelvis without evidence for dilatation or obstruction. There is no evidence for mass lesion. There is mild sigmoid diverticulosis without evidence for diverticulitis. There are no inflammatory changes present. There is no evidence for free air. The appendix is not visualized. Bladder: There is no evidence for focal bladder wall thickening, calculus or diverticulum. : There is no evidence for pelvic mass or adenopathy. The prostate is mildly enlarged. Vasculature: There is no evidence for focal aneurysmal dilatation of the abdominal aorta. There is again extensive atherosclerotic calcification of the abdominal aorta which extends into the iliac arteries and into the femoral arteries as well. Osseous structures: There is no acute osseous pathology. Degenerative changes are seen within the spine. IMPRESSION: 1. 7 mm left UPJ calculus producing mild left-sided hydronephrosis with swelling of the left kidney and perinephric stranding present. 2. No other renal calculi bilaterally. No right-sided hydronephrosis. 3. Additional nonacute findings are delineated above. ACT 112: Negative or not required by law. Electronically signed by: Tripp Tse M.D. 04/04/2021 1:[address] 04/04/21 11:[address] DOSE: 1593.74 mGy.cm HISTORY: low back pain TECHNIQUE: Multiaxial CT images of the lumbar spine were performed and reformatted in the sagittal and coronal plane without the use of contrast. A dose lowering technique was utilized adhering to the principles of ALARA. COMPARISON: None. FINDINGS: No fracture or subluxation. Levoscoliosis centered at the L4 level. There is moderate to severe disc space narrowing seen throughout the majority of the lumbar spine. This most pronounced at the L3-L4 and L4-5 levels. There are mild facet degenerative changes within the lumbar spine. There is a left retroaortic renal vein. Moderate central canal narrowing at L3-L4 and L4-5. Aneurysmal dilatation of the junction of the descending thoracic aorta/proximal abdominal aorta measuring up to 4.1 cm diameter. This is only partially imaged on this study. IMPRESSION: 1. No fractures within the lumbar spine. 2. Levoscoliosis and degenerative changes as described above. 3. Aneurysmal dilatation within the proximal abdominal aorta measuring up to 4.1 cm in diameter. ACT 112: Negative or not required by law. Electronically signed by: Andres Swanson M.D. 04/04/2021 1:04 PM Discharge Plan Visit Data Chief Complaint: TIA Symptoms ED Provider: Robert Whitfield Discharge Problem: Weakness, Acute UTI, Ureteral stone, COVID-19 Patient Disposition: Admitted As Inpatient Condition: Fair Discharge Instructions Interventions: ED Discharge Assessment Last Done: 04/04/21 14:52
[2021-04-04 10:18] LABS: Appearance Urine Cloudy (Clear); Bacteria Urine Automated 3+ (Negative); Bilirubin Urine Negative (Negative); Blood Urine 1+ (Negative); Color Urine Yellow; Epithelial Cell Urine Auto 0-5 /lpf (0-5); Glucose Urine UA Negative (Negative); Ketones Urine Negative (Negative); Leukocyte Esterase Urine 3+ (Negative); Nitrite Urine Positive (Negative); Protein Urine Trace (Negative); RBC Urine Automated 0-4 /hpf (0-4); Specific Gravity Urine 1.019 (1.000-1.030); Urobilinogen Urine Negative (Negative); WBC Urine Automated >30 /hpf (0-5)
[2021-04-04 10:43] LABS: Eosinophils # (auto) 0.03 K/uL (0-0.5); Eosinophils % (auto) 0.5 %; Hematocrit (blood only) 37.3 % (42-52); Immature Granulocytes # (auto) 0.03 K/uL (0.00-0.02); Immature Granulocytes % (auto) 0.5 %; Lymphocytes % (auto) 8.3 %; Mean Corpuscular Hemoglobin 30.5 pg (25-34); Mean Corpuscular Hgb Conc 32.2 g/dL (32-36); Mean Corpuscular Volume 94.9 fL (80-100); Mean Platelet Volume 10.5 fL (7.4-10.4); Monocytes # (auto) 0.47 K/uL (0.11-0.59); Monocytes % (auto) 7.8 %; Neutrophils # (auto) 4.99 K/uL (1.4-6.5); Neutrophils % (auto) 82.9 %; Platelet Count 140 K/uL (130-400); RDW Coefficient of Variation 14.2 % (11.5-14.5); RDW Standard Deviation 49.3 fL (36.4-46.3); Red Blood Count 3.93 M/uL (4.7-6.1); White Blood Count 6.02 K/uL (4.8-10.8)
--- NOTE | 2021-04-04 10:47 | XRay Report ---
XR chest 1V portable CLINICAL HISTORY: weakness. Evaluate cardiopulmonary status COMPARISON STUDY: 09/30/2019 TECHNIQUE: 1 view of the chest FINDINGS: Single frontal view of the chest demonstrates the heart size to be within normal limits status post p revious cardiothoracic surgery. There is a decreased inspiratory effort with elevation of the hemidia phragms and crowding of the bronchovascular markings at the lung bases and centrally. The lungs are c lear of alveolar opacities. There is no evidence for pleural effusion. There is no evidence for vascu lar congestion. There is no acute osseous pathology. IMPRESSION: There is a decreased inspiratory effort with otherwise no acute chest disease. ACT 112: Negative or not required by law. Electronically signed by: Tripp Tse M.D. 04/04/2021 10:45 AM
--- NOTE | 2021-04-04 11:12 | Electrocardiogram Report ---
Test Reason : Blood Pressure : / mmHG Vent. Rate : 093 BPM Atrial Rate : 083 BPM P-R Int : 000 ms QRS Dur : 116 ms QT Int : 394 ms P-R-T Axes : 000 042 049 degrees QTc Int : 489 ms Poor data quality, interpretation may be adversely affected Atrial fibrillation Incomplete left bundle block Prolonged QT Abnormal ECG When compared with ECG of 01-OCT-2019 10:19, Atrial fibrillation has replaced Sinus rhythm Vent. rate has increased BY 41 BPM T wave amplitude has decreased in Lateral leads Confirmed by Ashok Westfall ([id number]) on 04/04/2021 11:12:20 AM [facility] Confirmed By:Ashok Westfall
[2021-04-04 11:25] LABS: Troponin I 0.03 ng/ml (0-0.04)
[2021-04-04 11:33] LABS: Influenza A virus by PCR Negative (Negative); Influenza B virus by PCR Negative (Negative)
[2021-04-04 11:41] LABS: Alanine Aminotransferase 36 U/L (7-52); Albumin Globulin Ratio 1.3 (0.9-2); Albumin Level 3.6 gm/dl (3.4-5.0); Alkaline Phosphatase 104 U/L (34-104); Anion Gap 6 (3-11); Aspartate Aminotransferase 37 U/L (13-39); Bilirubin,Total 0.8 mg/dl (0.2-1.0); Blood Urea Nitrogen 31 mg/dl (6-23); Calcium 8.4 mg/dl (8.5-10.1); Carbon Dioxide 25 mmol/L (21-32); Chloride 108 mmol/L (98-107); Est GFR (African American) 42.6 ml/min; Est GFR (Non-African American) 36.7 ml/min; Globulin 2.8 gm/dl (2.5-4.0); Glucose 99 mg/dl (70-99(Fasting)); Magnesium 1.9 mg/dl (1.7-2.4); Sodium 139 mmol/L (136-145); Total Protein 6.4 gm/dl (6.0-8.3)
[2021-04-04] MEDS ORDERED: SODIUM CHLORIDE 0.9% 1000ML 500 ML IV ONE (12:42)
--- NOTE | 2021-04-04 13:03 | CT Scan Report ---
CT SCAN OF THE BRAIN WITHOUT IV CONTRAST CLINICAL HISTORY: Fall. COMPARISON STUDY: CT of the brain dated 10/13/2019. TECHNIQUE: Unenhanced axial CT scan of the brain is performed from the vertex to the skull base. A do se lowering technique was utilized adhering to the principles of ALARA. FINDINGS: Brain parenchyma: There are age-related involutional changes noting mild subcortical and periventric ular microangiopathic change. There is no hemorrhage, mass effect, or evidence of acute territorial i schemia by CT criteria. A chronic lacunar infarct is noted in the right basal ganglia. Peters-white mat ter differentiation is preserved. No extra-axial fluid collection is seen. Ventricles, sulci, cisterns: Prominent secondary to involutional change. Intracranial vasculature: There is atherosclerotic calcification of the cavernous carotid and vertebr al arteries. Calvarium: The skeletal structures are osteopenic. There is no depressed calvarial fracture. Sinuses and mastoids: The visualized paranasal sinuses are clear. There is a small left mastoid effus ion. The right mastoid air cells are well pneumatized. Orbits: The bony orbits are grossly intact. There are bilateral ocular lens implants. IMPRESSION: There is no hemorrhage, mass effect, or evidence of acute territorial ischemia by CT nesst nimo. ACT 112: Negative or not required by law. Electronically signed by: Robert Hernandez M.D. 04/04/2021 1:02 PM
--- NOTE | 2021-04-04 13:05 | CT Scan Report ---
LUMBAR SPINE CT CT DOSE: 1593.74 mGy.cm HISTORY: low back pain TECHNIQUE: Multiaxial CT images of the lumbar spine were performed and reformatted in the sagittal an d coronal plane without the use of contrast. A dose lowering technique was utilized adhering to the principles of ALARA. COMPARISON: None. FINDINGS: No fracture or subluxation. Levoscoliosis centered at the L4 level. There is moderate to se chelsi disc space narrowing seen throughout the majority of the lumbar spine. This most pronounced at t he L3-L4 and L4-5 levels. There are mild facet degenerative changes within the lumbar spine. There is a left retroaortic renal vein. Moderate central canal narrowing at L3-L4 and L4-5. Aneurysmal dilata tion of the junction of the descending thoracic aorta/proximal abdominal aorta measuring up to 4.1 cm diameter. This is only partially imaged on this study. IMPRESSION: 1. No fractures within the lumbar spine. 2. Levoscoliosis and degenerative changes as described above. 3. Aneurysmal dilatation within the proximal abdominal aorta measuring up to 4.1 cm in diameter. ACT 112: Negative or not required by law. Electronically signed by: Andres Swanson M.D. 04/04/2021 1:04 PM
--- NOTE | 2021-04-04 13:22 | CT Scan Report ---
CT abd pelvis wo con CLINICAL HISTORY: left back pain COMPARISON STUDY: 05/07/2016 CT DOSE: TECHNIQUE: Standard CT of the Abdomen and Pelvis was performed without IV contrast. The patient did not receive oral contrast. A dose lowering technique was utilized adhering to the principles of SHANNA Pagan. FINDINGS: Lung base: There is minimal dependent edema/atelectasis at the lung bases, right slightly greater th an Left. Extensive atherosclerotic calcification is seen involving the lower thoracic aorta which extend s into the abdominal aorta. Mild cardiomegaly and coronary artery calcification is present with evide nce for previous sternotomy. Abdominal cavity: There is no evidence for abdominal mass, adenopathy or ascites. Liver: The liver is homogeneous in attenuation on these limited noncontrast images.. Spleen: The spleen is homogeneous in attenuation on these limited noncontrast images. Pancreas: The pancreas is homogeneous in attenuation on these limited noncontrast images. Gall Bladder: The gallbladder is well distended with no evidence for cholelithiasis, wall thickening or pericholecystic edema.. Adrenal glands: The adrenal glands are normal in size and attenuation on these limited noncontrast im ages. Kidneys: Compared to the previous study, there is now mild hydronephrosis and swelling of the left ki dney with perinephric stranding present. A 7 mm calculus is now seen at the right UPJ producing the m ild obstruction present. No other renal calculi are present bilaterally. There is no evidence for rig ht-sided hydronephrosis. Bowel: The bowel loops are normally placed within the abdomen and pelvis without evidence for dilatat ion or obstruction. There is no evidence for mass lesion. There is mild sigmoid diverticulosis withou t evidence for diverticulitis. There are no inflammatory changes present. There is no evidence for fr ee air. The appendix is not visualized. Bladder: There is no evidence for focal bladder wall thickening, calculus or diverticulum. : There is no evidence for pelvic mass or adenopathy. The prostate is mildly enlarged. Vasculature: There is no evidence for focal aneurysmal dilatation of the abdominal aorta. There is ag ain extensive atherosclerotic calcification of the abdominal aorta which extends into the iliac arter ies and into the femoral arteries as well. Osseous structures: There is no acute osseous pathology. Degenerative changes are seen within the spi ne. IMPRESSION: 1. 7 mm left UPJ calculus producing mild left-sided hydronephrosis with swelling of the left kidney a nd perinephric stranding present. 2. No other renal calculi bilaterally. No right-sided hydronephrosis. 3. Additional nonacute findings are delineated above. ACT 112: Negative or not required by law. Electronically signed by: Tripp Tse M.D. 04/04/2021 1:20 PM
--- NOTE | 2021-04-04 14:20 | History & Physical Report ---
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 T: 38.4 C, BP initially 99/50 improved to 110/56 with IV fluids No leukocytosis, lactate initially 2.2 now WNL, procal pending CT abd/pelvis with 7 mm left UPJ calculus producing mild left-sided hydronephrosis with swelling of the left kidney and perinephric stranding present Urology consulted, will take to OR by Dr. Quiros for cystoscopy, bilateral retrograde pyelogram, bilateral ureteral stent placement depending on findings Started on empiric Cefepime, plan to continue Gentle IV fluids Follow cultures Keep NPO (4) COVID-19: Plan: Covid + today on 04/04/21, has received vaccine and booster Saturating at 94% on room air No indication for dexamethasone or remdesivir at this time Covid isolation precautions, monitor closely, supplemental O2 as needed (5) Cerebrovascular disease: Plan: H/o CVA in September 2019. Continue aspirin (6) Paroxysmal A-fib: Plan: Continue amiodarone, Toprol, coumadin for anticoagulation (7) Chronic diastolic (congestive) heart failure: Plan: Takes 40mg daily (8) COPD (chronic obstructive pulmonary disease): Plan: Stable, does not use home inhalers (9) BPH (benign prostatic hypertrophy): Plan: Continue doxazosin DVT Ppx: Coumadin Code status: FULL PCP: Felix Dispo: Admitted to PCU Patient seen in collaboration with Dr. Elizabeth. Please see addendum. 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 Staff at facility concerned for possible stroke due to increased drooling, weakness and fall yesterday. No focal weakness. Usually ambulates with walker. Fall without head trauma or LOC. History primarily obtained by ADELSO Ritchie (sister), who is at bedside. Patient is also endorsing left-sided flank and back pain with some dysuria and increased urinary urgency. No hematuria. Noted increased coughing but has chronic cough at baseline 2/2 COPD. No fever, chills, chest pain, shortness of breath, nausea, vomiting or diarrhea. Patient is on coumadin for history of paroxysmal A Fib and CVA. Allergies Allergy/AdvReac Type Severity Reaction Status Date / Time guaifenesin AdvReac Unknown GETS Verified 04/04/21 10:18 REALLY SICK FROM MUCINEX Home Medications Medication Instructions Recorded Confirmed Type amiodarone 200 mg tablet 200 mg PO QAM 05/22/18 04/04/21 History magnesium oxide 400 mg PO BID 05/22/18 04/04/21 History doxazosin 1 mg tablet 1 mg PO QPM 03/12/19 04/04/21 History metoprolol succinate 25 mg 12.5 mg PO QAM 03/12/19 04/04/21 History tablet,extended release 24 hr acetaminophen 325 mg tablet 650 mg PO QID PRN 05/31/20 04/04/21 History docusate sodium 100 mg tablet 100 mg PO BID 05/31/20 04/04/21 History nystatin 100,000 unit/gram topical 1 applic TOPICAL BID PRN 05/31/20 04/04/21 History powder polyethylene glycol 3350 17 17 g PO QDL PRN 05/31/20 04/04/21 History gram/dose oral powder (Miralax) aspirin 81 mg tablet,delayed 81 mg PO DAILY 04/04/21 04/04/21 History release atorvastatin 40 mg tablet 40 mg PO DAILY 04/04/21 04/04/21 History famotidine 20 mg tablet 20 mg PO BID 04/04/21 04/04/21 History furosemide 20 mg tablet 20 mg PO MOWEFR@0900 04/04/21 04/04/21 History lisinopril 10 mg tablet 10 mg PO QAM 04/04/21 04/04/21 History risperidone 0.5 mg tablet 0.5 mg PO BID 04/04/21 04/04/21 History warfarin 3 mg tablet 3 mg PO DAILY 04/04/21 04/04/21 History Past Med/Surg History Medical History A-fib Anxiety Aortic aneurysm BPH (benign prostatic hyperplasia) CAD (coronary artery disease) Cerebrovascular disease "history of TIA" CHF (congestive heart failure) Chronic diastolic (congestive) heart failure Chronic diastolic heart failure COPD (chronic obstructive pulmonary disease) Diverticulosis Dyslipidemia GERD (gastroesophageal reflux disease) History of basal cell carcinoma of skin History of squamous cell carcinoma of skin HTN (hypertension) Hypertension Impaired gait and mobility MRSA nasal colonization Neuropathy Sinusitis TIA (transient ischemic attack) Venous insufficiency Surgical History H/O arthroscopic knee surgery H/O thoracic aortic aneurysm repair History of aortic valve replacement 11/22/2015 - Dr. Mayo Phoenix ([facility] [place]) History of cataract surgery LEFT Knee joint replacement status Right S/P CABG x 1 Family History Other Diabetes Hypertension Social History Smoking Status: Former smoker Tobacco Type: Cigarettes Hx Alcohol Use: Yes Alcohol type: beer and wine Hx Substance Use: No Preferred Language: Estonian Communication Ability: Effective Visual Impairment: Limited Hearing Ability: Hard of Hearing [employer] Required: No Beliefs That Will Affect Care: None marital status: Current Living Situation: Senior Care Current Living Situation Comment: [facility] current occupational status: retired How many Children do You have: 2 Feels Safe at Home: Yes Assistive Devices: Cane and Walker Review of Systems Review of Systems: At least ten systems reviewed and negative except as noted in the HPI. Physical Exam Physical Exam: Please see Dr. Elizabeth's addendum for physical exam. Results & Data Results & Data ([facility]) Vital Signs (Past 12 Hours) Vital Signs Temp Pulse Resp BP Pulse Ox 04/04/21 11:30 85 20 99/50 L 94 04/04/21 11:00 78 23 107/56 L 04/04/21 10:30 100 H 20 129/68 04/04/21 10:00 90 18 110/58 L 04/04/21 09:54 89 18 96 04/04/21 09:42 38.4 C H 91 H 20 120/67 96 Laboratory Results Short CBC 04/04/21 04/04/21 Range/Units 10:29 10:29 WBC 6.02 (4.8-10.8) K/uL Hgb 12.0 L (14.0-18.0) g/dL Hct 37.3 L (42-52) % Plt Count 140 (130-400) K/uL Creatinine 1.72 H (0.6-1.4) mg/dl BMP 04/04/21 10:29 Sodium 139 Potassium 5.0 Chloride 108 H Carbon Dioxide 25 BUN 31 H Creatinine 1.72 H Glucose 99 Calcium 8.4 L Cardiac Enzymes 04/04/21 Range/Units 10:29 Troponin I 0.03 (0-0.04) ng/ml Liver Function 04/04/21 Range/Units 10:29 Total Bilirubin 0.8 (0.2-1.0) mg/dl AST 37 (13-39) U/L ALT 36 (7-52) U/L Alkaline Phosphatase 104 (34-104) U/L Albumin 3.6 (3.4-5.0) gm/dl Urine 04/04/21 Range/Units 10:00 Urine Color Yellow Urine Appearance Cloudy A (Clear) Urine pH 6.0 (4.5-7.5) Ur Specific [place] 1.019 (1.000-1.030) Urine Protein Trace H (Negative) Urine Glucose (UA) Negative (Negative) Diagnostic Findings Chest X-Ray 04/04/21 09:59 XR chest 1V portable CLINICAL HISTORY: weakness. Evaluate cardiopulmonary status COMPARISON STUDY: 09/30/2019 TECHNIQUE: 1 view of the chest FINDINGS: Single frontal view of the chest demonstrates the heart size to be within normal limits status post previous cardiothoracic surgery. There is a decreased inspiratory effort with elevation of the hemidiaphragms and crowding of the bronchovascular markings at the lung bases and centrally. The lungs are clear of alveolar opacities. There is no evidence for pleural effusion. There is no evidence for vascular congestion. There is no acute osseous pathology. IMPRESSION: There is a decreased inspiratory effort with otherwise no acute chest disease. ACT 112: Negative or not required by law. Electronically signed by: Tripp Tse M.D. 04/04/2021 10:[address] 04/04/21 09:59 CT SCAN OF THE BRAIN WITHOUT IV CONTRAST CLINICAL HISTORY: Fall. COMPARISON STUDY: CT of the brain dated 10/13/2019. TECHNIQUE: Unenhanced axial CT scan of the brain is performed from the vertex to the skull base. A dose lowering technique was utilized adhering to the principles of ALARA. FINDINGS: Brain parenchyma: There are age-related involutional changes noting mild subcortical and periventricular microangiopathic change. There is no hemorrhage, mass effect, or evidence of acute territorial ischemia by CT criteria. A chronic lacunar infarct is noted in the right basal ganglia. Peters-white matter differentiation is preserved. No extra-axial fluid collection is seen. Ventricles, sulci, cisterns: Prominent secondary to involutional change. Intracranial vasculature: There is atherosclerotic calcification of the cavernous carotid and vertebral arteries. Calvarium: The skeletal structures are osteopenic. There is no depressed calvarial fracture. Sinuses and mastoids: The visualized paranasal sinuses are clear. There is a small left mastoid effusion. The right mastoid air cells are well pneumatized. Orbits: The bony orbits are grossly intact. There are bilateral ocular lens implants. IMPRESSION: There is no hemorrhage, mass effect, or evidence of acute territorial ischemia by CT criteria. ACT 112: Negative or not required by law. Electronically signed by: Robert Hernandez M.D. 04/04/2021 1:02 PM Abdomen/Pelvis CT 04/04/21 11:45 CT abd pelvis wo con CLINICAL HISTORY: left back pain COMPARISON STUDY: 05/07/2016 CT DOSE: TECHNIQUE: Standard CT of the Abdomen and Pelvis was performed without IV contrast. The patient did not receive oral contrast. A dose lowering technique was utilized adhering to the principles of ALARA. FINDINGS: Lung base: There is minimal dependent edema/atelectasis at the lung bases, right slightly greater than Left. Extensive atherosclerotic calcification is seen involving the lower thoracic aorta which extends into the abdominal aorta. Mild cardiomegaly and coronary artery calcification is present with evidence for previous sternotomy. Abdominal cavity: There is no evidence for abdominal mass, adenopathy or ascites. Liver: The liver is homogeneous in attenuation on these limited noncontrast images.. Spleen: The spleen is homogeneous in attenuation on these limited noncontrast images. Pancreas: The pancreas is homogeneous in attenuation on these limited noncontrast images. Gall Bladder: The gallbladder is well distended with no evidence for cholelithiasis, wall thickening or pericholecystic edema.. Adrenal glands: The adrenal glands are normal in size and attenuation on these limited noncontrast images. Kidneys: Compared to the previous study, there is now mild hydronephrosis and swelling of the left kidney with perinephric stranding present. A 7 mm calculus is now seen at the right UPJ producing the mild obstruction present. No other renal calculi are present bilaterally. There is no evidence for right-sided hydronephrosis. Bowel: The bowel loops are normally placed within the abdomen and pelvis without evidence for dilatation or obstruction. There is no evidence for mass lesion. There is mild sigmoid diverticulosis without evidence for diverticulitis. There are no inflammatory changes present. There is no evidence for free air. The appendix is not visualized. Bladder: There is no evidence for focal bladder wall thickening, calculus or diverticulum. : There is no evidence for pelvic mass or adenopathy. The prostate is mildly enlarged. Vasculature: There is no evidence for focal aneurysmal dilatation of the abdominal aorta. There is again extensive atherosclerotic calcification of the abdominal aorta which extends into the iliac arteries and into the femoral arteries as well. Osseous structures: There is no acute osseous pathology. Degenerative changes are seen within the spine. IMPRESSION: 1. 7 mm left UPJ calculus producing mild left-sided hydronephrosis with swelling of the left kidney and perinephric stranding present. 2. No other renal calculi bilaterally. No right-sided hydronephrosis. 3. Additional nonacute findings are delineated above. ACT 112: Negative or not required by law. Electronically signed by: Tripp Tse M.D. 04/04/2021 1:[address] 04/04/21 11:[address] DOSE: 1593.74 mGy.cm HISTORY: low back pain TECHNIQUE: Multiaxial CT images of the lumbar spine were performed and reformatted in the sagittal and coronal plane without the use of contrast. A dose lowering technique was utilized adhering to the principles of ALARA. COMPARISON: None. FINDINGS: No fracture or subluxation. Levoscoliosis centered at the L4 level. There is moderate to severe disc space narrowing seen throughout the majority of the lumbar spine. This most pronounced at the L3-L4 and L4-5 levels. There are mild facet degenerative changes within the lumbar spine. There is a left retroaortic renal vein. Moderate central canal narrowing at L3-L4 and L4-5. Aneurysmal dilatation of the junction of the descending thoracic aorta/proximal abdominal aorta measuring up to 4.1 cm diameter. This is only partially imaged on this study. IMPRESSION: 1. No fractures within the lumbar spine. 2. Levoscoliosis and degenerative changes as described above. 3. Aneurysmal dilatation within the proximal abdominal aorta measuring up to 4.1 cm in diameter. ACT 112: Negative or not required by law. Electronically signed by: Andres Swanson M.D. 04/04/2021 1:04 PM Code Status & VTE Plan VTE Prophylaxis Plan VTE Prophylaxis will be ordered: Yes Supervising Physician Co-Signing Physician Notes Patient is an 80-year-old male with history of paroxysmal A. fib on chronic anticoagulation with Coumadin, mild cognitive impairment, CHF, COPD and other medical problems presents with history of generalized weakness, fall, flank pain and dysuria. Please review HPI for complete details of presentation. He was found to be febrile while in ED. Blood work suggestive of lactate elevated at 2.2, creatinine 1.7 INR subtherapeutic at 1.4. Urinalysis suggestive of UTI. He was tested positive for Covid. Imaging studies suggestive of 7 mm left UPJ calculus producing mild left-sided hydronephrosis with swelling of the left kidney and perinephric stranding. Patient received IV cefepime while in ED. Is currently saturating well on room air. Patient states that he is fully vaccinated for Covid. Physical Exam: Vitals signs as noted above General Appearance:Moderately built and nourished, no apparent distress Head: normocephalic, Atraumatic Eyes: normal inspection, EOMI Neck: supple, Trachea midline Respiratory/Chest: Decreased breath sounds, basal crackles Cardiovascular: Irregularly irregular, no murmur Abdomen/GI:Soft, left flank tender, Bowel sounds present Extremities/Musculoskeletal:normal inspection, Trace B/L LE edema Neurologic/Psych:AAOX3, grossly no focal neurological deficits Skin: normal color, warm Sepsis Obstructive uropathy Complicated UTI Agree with IV fluids, broad-spectrum antibiotics with IV cefepime Blood, urine cultures obtained Urology consulted to help with ureteral stone management COVID-19 Currently saturating well on room air We will consider steroid course if needed Monitor I personally reviewed the record. Patient is interviewed and examined at bedside. Patient's care is coordinated with Marta De Jesus PA-C. Please refer to the documentation above for details of patient's presentation and for discussion of other issues. (1) COPD (chronic obstructive pulmonary disease) COPD type: emphysema Emphysema type: centrilobular Qualified Code(s): J43.2 - Centrilobular emphysema
--- NOTE | 2021-04-04 14:51 | Urology Consultation ---
Date of Consultation April 04, 2021 Assessment & Plan (1) Ureteral stone with hydronephrosis: (2) Complicated UTI (urinary tract infection): 80yo M with multiple comorbidities who presented with generalized weakness and was found to have an obstructing left ureteral stone, presumed UTI, and positive for Covid-19. - Pt febrile at 38.4C, hypotensive on arrival. - Labs reviewed - White count is normal, Creatinine 1.72 - UA suspicious for infection, Urine and blood cultures pending - IV Cefepime given in ED. - Plan of care reviewed with Dr. Quiros, on-call urologist. - Given he is febrile and hypotensive in the context of an obstructing left ureteral stone, will proceed with OR for Cystoscopy, bilateral retrograde pyelogram, bilateral ureteral stent placement depending on findings. - Risks and benefits to be reviewed with patient by Dr. Quiros. OR notified. Covid test positive. IV Cefepime given in ED. - Keep NPO. 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 Per chart review, staff at the facility were concerned for possible stroke due to increased drooling, weakness and reported fall yesterday. CTAP on presentation noted an obstructing left ureteral stone with mild left sided hydronephrosis. Pt was also found to be Covid positive. On presentation, he was febrile at 38.4 and hypotensive. No leukocytosis. Creatinine 1.72, which appears to be his baseline. Urinalysis remarkable for 1+blood, positive nitrite, 3+Leukocytes, >30WBC, 3+bacteria. He is currently on Coumadin. Pt was given IVF, Cefepime, and Acetaminophen in the ED. CTAP IMPRESSION: 1. 7 mm left UPJ calculus producing mild left-sided hydronephrosis with swelling of the left kidney and perinephric stranding present. 2. No other renal calculi bilaterally. No right-sided hydronephrosis. 3. Additional nonacute findings are delineated above. Attending note: Patient septic with hypotension and mild tachycardia as well as fever. Patient is diagnosed acutely with COVID-19. He has been dealing with significant back and flank pain largely on the left coming in waves. Was concern for possible injury to the back. Underwent imaging. Also had imaging of abdomen pelvis. Found to have calcification in the renal pelvis concerning for possible UPJ stone with hydronephrosis. Patient's right side also has some smaller stones. Patient is acutely ill with significant illness likely due to Covid and acute UTI issues/concern for development of pyelonephritis with obstructing stone. Sepsis with concern for obstructing stone. On top of the typical risks and benefits, there is increased risk due to the current pandemic from the COVID-19 virus and the resulting health care crisis. Patient's disease is considered a high risk with significant risk of morbidity and mortality if allowed to continue untreated. Different alternatives had been discussed. Delay of intervention at this time would have significant risk to life and limb. Specifically there is a chance of progression to severe disease or loss of organ/renal function, progression to infection or other advanced disease, and/or possible . The procedure is deemed medically necessary and life sustaining. This was determined based on best clinical judgement with guidelines and recommendations based on good practices. Multiple professional organizations have published and sent recommendations for surgical and urologic intervention and procedures and the planned procedure falls into the category of necessary procedure. Due to the acute Covid infection patient is going to be emergently moved into the OR suite where a finalization of plans and discussion will be completed. Consent will be signed at that time. And plan to proceed with emergent cystoscopy and bilateral retrograde pyelogram with possible stent placement Allergies Allergy/AdvReac Type Severity Reaction Status Date / Time guaifenesin AdvReac Unknown GETS Verified 04/04/21 10:18 REALLY SICK FROM MUCINEX Home Medications Medication Instructions Recorded Confirmed Type amiodarone 200 mg tablet 200 mg PO QAM 05/22/18 04/04/21 History magnesium oxide 400 mg PO BID 05/22/18 04/04/21 History doxazosin 1 mg tablet 1 mg PO QPM 03/12/19 04/04/21 History metoprolol succinate 25 mg 12.5 mg PO QAM 03/12/19 04/04/21 History tablet,extended release 24 hr acetaminophen 325 mg tablet 650 mg PO QID PRN 05/31/20 04/04/21 History docusate sodium 100 mg tablet 100 mg PO BID 05/31/20 04/04/21 History furosemide 40 mg tablet 40 mg PO QAM 05/31/20 04/04/21 History nystatin 100,000 unit/gram topical 1 applic TOPICAL BID 05/31/20 04/04/21 History powder polyethylene glycol 3350 17 17 g PO QDL PRN 05/31/20 04/04/21 History gram/dose oral powder (Miralax) aspirin 81 mg tablet,delayed 81 mg PO DAILY 04/04/21 04/04/21 History release famotidine 20 mg tablet 20 mg PO BID 04/04/21 04/04/21 History lisinopril 10 mg tablet 10 mg PO QAM 04/04/21 04/04/21 History risperidone 0.5 mg tablet 0.5 mg PO BID 04/04/21 04/04/21 History Patient History Medical History A-fib Anxiety Aortic aneurysm BPH (benign prostatic hyperplasia) CAD (coronary artery disease) Cerebrovascular disease "history of TIA" CHF (congestive heart failure) Chronic diastolic heart failure COPD (chronic obstructive pulmonary disease) Diverticulosis Dyslipidemia GERD (gastroesophageal reflux disease) History of basal cell carcinoma of skin History of squamous cell carcinoma of skin HTN (hypertension) Hypertension Impaired gait and mobility MRSA nasal colonization Neuropathy Sinusitis TIA (transient ischemic attack) Venous insufficiency Surgical History H/O arthroscopic knee surgery H/O thoracic aortic aneurysm repair History of aortic valve replacement 11/22/2015 - Dr. Mayo Phoenix ([facility] [place] History of cataract surgery LEFT Knee joint replacement status Right S/P CABG x 1 Family History Other Diabetes Hypertension Social History Smoking Status: Former smoker Tobacco Type: Cigarettes Preferred Language: Montenegrin Communication Ability: Effective Visual Impairment: Limited Hearing Ability: Hard of Hearing Home Health Care Physician Required: No Beliefs That Will Affect Care: None marital status: Current Living Situation: Other Current Living Situation Comment: [employer] current occupational status: retired How many Children do You have: 2 Feels Safe at Home: Yes Assistive Devices: Walker Review of Systems Review of Systems: All systems reviewed & are unremarkable except as noted in HPI & below Limited due to patient illness Physical Exam Physical Exam: General: Acutely ill. Undergoing critical care management for acute severe infection HEENT: Normocephalic Atraumatic. Inspection normal. Cranial Nerves 2-12 Grossly intact. Nares are clear. Neck is supple Neurologic: No deficits on inspection. Baseline for motor function and sensory. Psychologic: Anxious, acute delirium secondary to illness Respiratory: Mild labored. No use of accessory muscles. No severe dyspnea. Cardiovascular: tachycardia Skin: [place] and Dry. No rashes or visible lesions. Febrile Extremities: Moving without issues. No motor deficits on inspection Lymphatics: Mild edema Abdomen: Mildly distended. No rebound or guarding. Mild suprapubic/flank tenderness on left Results & Data ([facility]) Vital Signs (Past 12 Hours) Vital Signs Temp Pulse Resp BP Pulse Ox 04/04/21 11:30 85 20 99/50 L 94 04/04/21 11:00 78 23 107/56 L 04/04/21 10:30 100 H 20 129/68 04/04/21 10:00 90 18 110/58 L 04/04/21 09:54 89 18 96 04/04/21 09:42 38.4 C H 91 H 20 120/67 96 PG Care Time/CCT Total # of Minutes Spent Total Time Spent with Patient: Total time spent is greater than 50% in coordination of care (as documented) at patient's floor/unit and/or counseling patient: Coding Level of Care Code 04456 Office/OBS Consult Lvl 5 Diagnoses Ureteral stone with hydronephrosis N13.2 Complicated UTI (urinary tract infection) N39.0
[2021-04-04 14:54] LABS: INR 1.4 (0.9-1.1); Prothrombin Time 13.9 Seconds (9.0-12.0)
[2021-04-04] MEDS ORDERED: CONSULT PHARMACY STA (15:07)
[2021-04-04] MEDS ORDERED: ePHEDrine sulfate 50 MG/ML SYR ONE (15:40)
[2021-04-04] MEDS ORDERED: LIDOCAINE 2% 2 ML VIAL/AMP(20MG/ML) INFIL ONE (15:40)
[2021-04-04] MEDS ORDERED: PROPOFOL IV EMULSION 10 MG/ML 20 ML VIAL IV ONE (15:40)
[2021-04-04] MEDS ORDERED: fentaNYL citrate 100 MCG/2 ML VIAL ONE (15:40)
[2021-04-04] MEDS ORDERED: WARFARIN SOD 3 MG TAB PO SCH (16:00)
[2021-04-04] MEDS ORDERED: POLYETHYLENE (MIRALAX) 17 GM PACK PO PRN (16:02)
[2021-04-04] MEDS ORDERED: ONDANSETRON INJ 2 MG/ML 2 ML VIAL IV PRN (16:02)
[2021-04-04] MEDS ORDERED: DIATRIZOATE MEGLUMINE 30% 100ML VIAL INSTIL ONE (16:37)
--- NOTE | 2021-04-04 16:40 | Anesthesiology Consultation ---
Date of Service April 04, 2021 Assessment & Plan Chart Review Chart Review: Acceptable Risk for Surgery Consults Requested none History Surgery Operation Date: 04/04/21 16:35 Proposed Procedures p Cystoscopy, Bilateral Stent Insertion - Yaya Quiros DO Height/Weight Weight: 82.3 kg Allergies Allergy/AdvReac Type Severity Reaction Status Date / Time guaifenesin AdvReac Unknown GETS Verified 04/04/21 10:18 REALLY SICK FROM MUCINEX Medications Home Medications Medication Instructions Recorded Confirmed Last Taken amiodarone 200 mg tablet 200 mg PO QAM 05/22/18 04/04/21 06/29/20 08:00 magnesium oxide 400 mg PO BID 05/22/18 04/04/21 06/28/20 doxazosin 1 mg tablet 1 mg PO QPM 03/12/19 04/04/21 06/28/20 metoprolol succinate 25 mg 12.5 mg PO QAM 03/12/19 04/04/21 06/29/20 08:00 tablet,extended release 24 hr acetaminophen 325 mg tablet 650 mg PO QID PRN 05/31/20 04/04/21 Unknown docusate sodium 100 mg tablet 100 mg PO BID 05/31/20 04/04/21 06/28/20 nystatin 100,000 unit/gram topical 1 applic TOPICAL BID PRN 05/31/20 04/04/21 06/28/20 powder polyethylene glycol 3350 17 17 g PO QDL PRN 05/31/20 04/04/21 06/28/20 gram/dose oral powder (Miralax) aspirin 81 mg tablet,delayed 81 mg PO DAILY 04/04/21 04/04/21 Unknown release atorvastatin 40 mg tablet 40 mg PO DAILY 04/04/21 04/04/21 Unknown famotidine 20 mg tablet 20 mg PO BID 04/04/21 04/04/21 Unknown furosemide 20 mg tablet 20 mg PO MOWEFR@0900 04/04/21 04/04/21 Unknown lisinopril 10 mg tablet 10 mg PO QAM 04/04/21 04/04/21 Unknown risperidone 0.5 mg tablet 0.5 mg PO BID 04/04/21 04/04/21 Unknown warfarin 3 mg tablet 3 mg PO DAILY 04/04/21 04/04/21 04/03/21 Past Medical History Medical History A-fib Anxiety Aortic aneurysm BPH (benign prostatic hyperplasia) CAD (coronary artery disease) Cerebrovascular disease "history of TIA" CHF (congestive heart failure) Chronic diastolic (congestive) heart failure Chronic diastolic heart failure COPD (chronic obstructive pulmonary disease) Diverticulosis Dyslipidemia GERD (gastroesophageal reflux disease) History of basal cell carcinoma of skin History of squamous cell carcinoma of skin HTN (hypertension) Hypertension Impaired gait and mobility MRSA nasal colonization Neuropathy Sinusitis TIA (transient ischemic attack) Venous insufficiency Past Family History Family History Other Diabetes Hypertension Past Surgical History Surgical History H/O arthroscopic knee surgery H/O thoracic aortic aneurysm repair [place] of [place]22[place]2015 [place] [place] History of cataract surgery LEFT Knee joint replacement status Right S/P CABG x 1 Social History Smoking Status: Former smoker tobacco type: cigarettes Alcohol type: beer and wine alcohol intake frequency: 0-2 drinks per day substance use type: does not use Physical Exam Vital Signs Last Vital Signs Temp 36.9 C 04/04/21 16:02 Pulse 84 04/04/21 15:30 Resp 15 04/04/21 16:02 BP 130/83 04/04/21 16:02 Pulse Ox 94 04/04/21 16:02 Testing Laboratory Results 04/04/21 10:29 04/04/21 10:29 PT 13.9 Seconds (9.0-12.0) H 04/04/21 10:32 INR 1.4 (0.9-1.1) H 04/04/21 10:32 Urine Color Yellow 04/04/21 10:00 Urine Appearance Cloudy (Clear) A 04/04/21 10:00 Urine pH 6.0 (4.5-7.5) 04/04/21 10:00 Ur Specific [place] 1.019 (1.000-1.030) 04/04/21 10:00 Urine Protein Trace (Negative) H 04/04/21 10:00 Urine Glucose (UA) Negative (Negative) 04/04/21 10:00 Urine Ketones Negative (Negative) 04/04/21 10:00 Urine Nitrite Positive (Negative) A 04/04/21 10:00 Ur Leukocyte Esterase 3+ (Negative) H 04/04/21 10:00 Urine WBC (Auto) >30 /hpf (0-5) H 04/04/21 10:00 Urine RBC (Auto) 0-4 /hpf (0-4) 04/04/21 10:00 U Hyaline Cast (Auto) 1-5 /lpf (0-5) 04/04/21 10:00 U Epithel Cells (Auto) 0-5 /lpf (0-5) 04/04/21 10:00 Urine Bacteria (Auto) 3+ (Negative) H 04/04/21 10:00
--- NOTE | 2021-04-04 16:41 | Operative Report ---
PG Post Operative Report Pre & Post Diagnosis Operation Date: 04/04/21 16:35 Pre-Op Diagnosis: Ureteral stone with hydronephrosis, urinary track infection Post-Op Diagnosis: Ureteral stone with hydronephrosis, obstructing left ureteral stone I identified the patient and participated in the time-out.: Yes Procedure Operation Date: 04/04/21 16:35 Actual Procedures p Cystoscopy, Bilateral Retrogrades, Left Stent Insertion(Left) - Yaya Quiros DO Surgeon Yaya Quiros, II, DO Continuous Improvement Intern None Estimated Blood Loss 1 Findings Consistent with Post-Op Diagnosis Stent placed in good position. 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 Risks and benefits discussed at length. Description of Procedure Patient was consented and brought back to the operating room. Patient was placed under anesthesia in the supine position and moved to the dorsal lithotomy position. Patient was prepped and draped in the regular sterile fashion. A time out was completed. A 30degree Cystoscope was placed into the bladder and the entire bladder was examined. The UO's were identified. The UO was cannulized with a catheter and a retrograde pyelogram was completed. There is no signs of obstruction or major issue on the right. The left appeared to have a partial duplication with decreased ability to have contrast enter the upper pole. The wire was manipulated. It was able to enter the upper pole. A large amount of dark urine with some debris was then received with the wire placement in the upper pole. With the wire in place, a 6 Fr Double J stent was placed. It was confirmed with fluoroscopy. With the stent in place, the bladder was emptied. The scope was removed. The patient was cleaned, aroused from anesthesia, and transferred to the pacu in stable condition having tolerated the procedure well with no complications. I was present and participated in all aspects of the procedure. The patient will be monitored in the PACU until transferred. Patient is currently having significant hypotension with fevers. Is being treated for sepsis. Was found to be Covid positive. Is undergoing supportive care. We will plan to maintain stent for the next few weeks to allow time for healing. Can consider stone treatment in the future once patient has stabilized for multiple issues. Will update family. I attest to the content of the Intraoperative Record and any orders documented therein. Any exceptions are noted below.
--- NOTE | 2021-04-04 16:48 | Fluoroscopy Report ---
FL retrograde includes kub CLINICAL HISTORY: Bilateral retrograde pyelogram with left ureteral stent placement. COMPARISON STUDY: None. FLUOROSCOPY TIME: 19 seconds. FINDINGS: 2 fluoroscopic spot images of the abdomen and pelvis demonstrate bilateral retrograde pyelo grams with placement of a left ureteral stent. The left ureteral stent appears in good position. A Fo shirin catheter is in place. IMPRESSION: Fluoroscopic assistance provided for left ureteral stent placement which appears in good position. ACT 112: Negative or not required by law. Electronically signed by: Andres Swanson M.D. 04/04/2021 4:47 PM
--- NOTE | 2021-04-04 17:28 | Anesthesiology Progress Note ---
Date of Service April 04, 2021 Anesthesia Post Procedure Vital Signs Vital Signs: Temp Pulse Pulse Resp BP BP Pulse Ox 04/04/21 17:05 36.9 C 84 16 136/69 98 04/04/21 16:55 83 14 136/71 100 04/04/21 16:48 37.1 C 83 12 133/65 100 04/04/21 16:02 36.9 C 15 130/83 94 04/04/21 15:30 84 04/04/21 14:00 84 16 110/56 L 92 04/04/21 13:30 82 14 101/52 L 94 04/04/21 12:59 75 16 111/53 L 92 04/04/21 12:30 82 15 99/53 L 04/04/21 11:30 85 20 99/50 L 94 04/04/21 11:00 78 23 107/56 L 04/04/21 10:30 100 H 20 129/68 04/04/21 10:00 90 18 110/58 L 04/04/21 09:54 89 18 96 04/04/21 09:42 38.4 C H 91 H 20 120/67 96 Transfer of Care Handoff Completed per policy Notes Mental Status: alert / awake / arousable and participated in evaluation Patient Amnestic to Procedure: Yes Nausea / Vomiting: adequately controlled Pain: adequately controlled Airway Patency, RR, SpO2: stable & adequate BP & HR: stable & adequate Hydration State: stable & adequate Anesthetic Complications: no major complications apparent
[2021-04-04] MEDS: PATIENT'S HEIGHT AND/OR WEIGHT NEEDED SCH ×2 (18:16→18:54)
[2021-04-04] MEDS: MAGNESIUM OXIDE 400 MG TAB PO SCH (20:48)
[2021-04-04] MEDS: FAMOTIDINE 20 MG TAB PO SCH (20:49)
[2021-04-04] MEDS: DOCUSATE SODIUM 100 MG CAP PO SCH (20:49)
[2021-04-04] MEDS: DOXAZOSIN MESYLATE 1 MG TAB PO SCH (20:58)
[2021-04-04] MEDS: CEFEPIME 2,000 MG in SYRINGE 0 ML IV SCH (21:05)
[2021-04-05] MEDS ORDERED: MAGNESIUM SULFATE / D5W 1 GM/100 ML BAG IV ONE (03:31)
[2021-04-05] MEDS: METOPROLOL SUCC 25MG EXT REL TAB PO SCH (03:56)
[2021-04-05 07:22] LABS: Hematocrit (blood only) 36.3 % (42-52); Hemoglobin 11.9 g/dL (14.0-18.0); Mean Corpuscular Hemoglobin 30.8 pg (25-34); Mean Corpuscular Hgb Conc 32.8 g/dL (32-36); Mean Platelet Volume 10.1 fL (7.4-10.4); Platelet Count 122 K/uL (130-400); RDW Coefficient of Variation 14.2 % (11.5-14.5); RDW Standard Deviation 48.9 fL (36.4-46.3); Red Blood Count 3.86 M/uL (4.7-6.1); White Blood Count 6.82 K/uL (4.8-10.8)
[2021-04-05 07:45] LABS: BUN Creatinine Ratio 17.5 (10-20); Creatinine Clr Calc Pharmacy 36.4 ml/min; Est GFR (African American) 42.9 ml/min; Potassium 4.6 mmol/L (3.5-5.1)
[2021-04-05 07:48] LABS: INR 1.4 (0.9-1.1); Prothrombin Time 13.4 Seconds (9.0-12.0)
[2021-04-05] MEDS: MAGNESIUM OXIDE 400 MG TAB PO SCH ×2 (08:26→20:44)
[2021-04-05] MEDS: FAMOTIDINE 20 MG TAB PO SCH ×2 (08:26→20:44)
[2021-04-05] MEDS: ASPIRIN 81 MG ECTAB PO SCH (08:26)
[2021-04-05] MEDS: AMIODARONE 200 MG TAB PO SCH (08:26)
[2021-04-05] MEDS: DOCUSATE SODIUM 100 MG CAP PO SCH ×2 (08:26→20:44)
[2021-04-05] MEDS: ATORVASTATIN 40 MG TAB PO SCH (08:26)
[2021-04-05] MEDS: lisinopril 10 MG TAB PO SCH (08:26)
[2021-04-05] MEDS ORDERED: METOPROLOL SUCC 25MG EXT REL TAB PO SCH (09:00)
--- NOTE | 2021-04-05 09:32 | Electrocardiogram Report ---
Test Reason : Blood Pressure : / mmHG Vent. Rate : 088 BPM Atrial Rate : 088 BPM P-R Int : 186 ms QRS Dur : 120 ms QT Int : 396 ms P-R-T Axes : 069 045 072 degrees QTc Int : 479 ms Possible Normal sinus rhythm Incomplete left bundle block Borderline ECG When compared with ECG of 04-APR-2021 09:48, Sinus rhythm has replaced Atrial fibrillation Confirmed by Ashok Westfall ([id number]) on 04/05/2021 9:32:09 AM Referred By: JENNIFER TIRADO EDGEWOOD Confirmed By:Ashok Westfall
[2021-04-05] MEDS: CEFEPIME 2,000 MG in SYRINGE 0 ML IV SCH ×2 (12:15→21:53)
--- NOTE | 2021-04-05 14:38 | Communication Note ---
Date of Service: April 05, 2021 Pt POD #1 s/p Cystoscopy, Bilateral Retrogrades, Left Stent Insertion with Dr. Quiros. Chart reviewed. Patient not seen today due to COVID status. Afebrile overnight, lab work reviewed - creatinine 1.71, WBC 6.82. Currently on IV Cefepime, follow cultures. Continue supportive care, antibiotics, and management per primary service. Byrd remains intact, patent, and draining per nursing documentation. Maintain Byrd catheter at this time for maximum drainage, consider voiding trial prior to discharge. Will arrange outpatient follow-up with urology for definitive stone management when medically stable and infection has resolved. will sign off, please contact our service with any further questions or concerns.
[2021-04-05] MEDS ORDERED: WARFARIN SOD 3 MG TAB PO SCH (16:00)
[2021-04-05] MEDS: dexAMETHasone 6 MG in SYRINGE 0 ML IV SCH (16:45)
[2021-04-05] MEDS: WARFARIN SOD 5 MG TAB PO SCH (16:45)
--- NOTE | 2021-04-05 17:12 | Hospitalist Progress Note ---
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 Sepsis Obstructive uropathy Complicated UTI CT abd/pelvis with 7 mm left UPJ calculus producing mild left-sided hydronephrosis with swelling of the left kidney and perinephric stranding present S/P Cystoscopy, Bilateral Retrogrades, Left Stent Insertion with Dr. Quiros. POD #1 Appreciate Urology Input Cultures pending Continue Cefepime>>de-escalate as able Received IV fluids (4) COVID-19: Plan: COVID 19 Infection CXR: There is a decreased inspiratory effort with otherwise no acute chest disease. Start on dexamethasone Isolation precautions Continue supplemental oxygen as needed Pulmonary hygiene (5) Cerebrovascular disease: Plan: H/o CVA in September 2019. Continue aspirin (6) Paroxysmal A-fib: Plan: Continue amiodarone, Toprol coumadin for anticoagulation Monitor INR (7) Chronic diastolic (congestive) heart failure: Plan: Continue home Lasix (8) COPD (chronic obstructive pulmonary disease): Plan: Stable Does not use home inhalers (9) BPH (benign prostatic hypertrophy): Plan: Continue doxazosin Ambulatory dysfunction Continue PT OT We will likely need rehab when medically stable DVT Px: Coumadin Code status: FULL CODE PCP: [facility] Admission and Anticipated Discharge Date Admission Date: April 04, 2021 Subjective Patient is seen and examined at bedside Sleepy during my encounter States having cough and some dyspnea Currently saturating 88% on room air Flank pain improved Offers no other complaints Review of Systems Review of Systems: All systems reviewed & are unremarkable except as noted in Subjective Physical Exam Physical Exam: Physical Exam: Vitals signs as noted above General Appearance:Moderately built and nourished, no apparent distress Head: normocephalic, Atraumatic Eyes: normal inspection, EOMI Neck: supple, Trachea midline Respiratory/Chest: Coarse breath sounds Cardiovascular: Irregularly irregular, no murmur Abdomen/GI:Soft, non tender, Bowel sounds present Extremities/Musculoskeletal:normal inspection, Trace B/L LE edema Neurologic/Psych:AAOX3, grossly no focal neurological deficits Skin: normal color, warm Results & Data Results & Data ([facility]) Vital Signs (Past 12 Hours) Vital Signs Temp Pulse Pulse Pulse Resp BP Pulse Ox 04/05/21 17:04 37.2 C 113 H 20 181/86 H 92 04/05/21 15:09 90 04/05/21 11:51 36.9 C 93 H 18 139/74 91 04/05/21 08:00 86 04/05/21 07:40 36.8 C 83 14 170/86 H 90 04/05/21 06:43 80 04/05/21 06:06 37.3 C 85 14 138/76 91 Laboratory Results Short CBC 04/05/21 Range/Units 07:08 WBC 6.82 (4.8-10.8) K/uL Hgb 11.9 L (14.0-18.0) g/dL Hct 36.3 L (42-52) % Plt Count 122 L (130-400) K/uL BMP 04/05/21 07:08 Sodium 138 Potassium 4.6 Chloride 108 H Carbon Dioxide 22 BUN 30 H Creatinine 1.71 H Glucose 87 Calcium 8.0 L (1) COPD (chronic obstructive pulmonary disease) COPD type: emphysema Emphysema type: centrilobular Qualified Code(s): J43.2 - Centrilobular emphysema
[2021-04-05] MEDS: DOXAZOSIN MESYLATE 1 MG TAB PO SCH (20:44)
[2021-04-05] MEDS ORDERED: XOPENEX/ATROVENT 1.25mg/0.5MG NEB COMBO NEB STA (22:35)
[2021-04-05] MEDS ORDERED: methylPREDNISolone 40 MG in SYRINGE 0 ML IV STA (22:35)
[2021-04-05] MEDS ORDERED: PIPERACILL/TAZOBAC CONSULT ACTIVE PRN (22:36)
[2021-04-05] MEDS ORDERED: PIPERACILLIN/TAZOBACTAM 4.5 GM in DEXTROSE 5% 100 ML IV ONE (22:36)
--- NOTE | 2021-04-05 22:38 | Communication Note ---
Date of Service: April 05, 2021 Increasing O2 requirement as per RN. Patient choking on respiratory secretions as per RN. Chest x-ray as per my interpretation consolidation right AP Aspiration pneumonia Change cefepime to Zosyn for now Continue aspiration precautions Swallow eval
[2021-04-05] MEDS ORDERED: IPRATROPIUM BROMIDE NEB SOLN 0.02% 2.5 ML VIAL INH STA (22:39)
[2021-04-05] MEDS ORDERED: LEVALBUTEROL 1.25MG/0.5ML NEB INH STA (22:40)
[2021-04-05 23:16] LABS: iSTAT Allen Test Pass; iSTAT Art Bld Gas pCO2 Correct 37 mmHg (35-46); iSTAT Art Bld Gas pH Corrected 7.392 (7.35-7.45); iSTAT Arterial Blood Gas HCO3 22 meg/L (19-24); iSTAT Arterial Blood Gas pCO2 37 mmHg (35-46); iSTAT Arterial Blood Gas pH 7.39 (7.35-7.45); iSTAT Arterial Blood Gas pO2 91 mmHg (80-95); iSTAT Arterial Blood Gas pO2 C 91; iSTAT Carbon Dioxide 24 mmol/L (24-31); iSTAT Hematocrit 32 % (42-52); iSTAT Hemoglobin 10.9 g/dl (14.0-18.0); iSTAT Potassium 4.7 mmol/L (3.3-5.0); iSTAT Site R Radial; iSTAT Sodium 137 mmol/L (135-144)
[2021-04-06] MEDS: PIPERACILLIN/TAZOBACTAM 3.375 GM in DEXTROSE 5% 100 ML IV SCH ×3 (04:04→20:22)
[2021-04-06 07:04] LABS: Hematocrit (blood only) 36.9 % (42-52); Hemoglobin 11.9 g/dL (14.0-18.0); Mean Corpuscular Hemoglobin 30.6 pg (25-34); Mean Corpuscular Hgb Conc 32.2 g/dL (32-36); Mean Corpuscular Volume 94.9 fL (80-100); Mean Platelet Volume 10.8 fL (7.4-10.4); Platelet Count 126 K/uL (130-400); RDW Coefficient of Variation 14.4 % (11.5-14.5); RDW Standard Deviation 49.7 fL (36.4-46.3); Red Blood Count 3.89 M/uL (4.7-6.1); White Blood Count 7.12 K/uL (4.8-10.8)
[2021-04-06 07:32] LABS: Creatinine Clr Calc Pharmacy 35.9 ml/min; Est GFR (African American) 41.4 ml/min; Est GFR (Non-African American) 35.7 ml/min; Potassium 4.3 mmol/L (3.5-5.1)
[2021-04-06 07:34] LABS: INR 1.3 (0.9-1.1)
--- NOTE | 2021-04-06 07:59 | XRay Report ---
XR chest 1V portable HISTORY: Hypoxia. COMPARISON: Chest 04/04/2021. FINDINGS: No pneumothorax. No pleural effusions. The heart remains enlarged. There are poststernotomy changes. Calcifications within the thoracic aorta again noted. No evidence for pulmonary edema. Patc hy airspace opacities within the right mid to lower lung zone which are new from the prior study. Thi s is consistent with a pneumonia. IMPRESSION: New airspace opacities within the right mid to lower lung zone likely representing a pneumonia. ACT 112: Negative or not required by law. Electronically signed by: Andres Swanson M.D. 04/06/2021 7:57 AM
[2021-04-06] MEDS: FAMOTIDINE 20 MG TAB PO SCH ×2 (08:09→20:23)
[2021-04-06] MEDS: MAGNESIUM OXIDE 400 MG TAB PO SCH ×2 (08:09→20:23)
[2021-04-06] MEDS: lisinopril 10 MG TAB PO SCH (08:09)
[2021-04-06] MEDS: ASPIRIN 81 MG ECTAB PO SCH (08:09)
[2021-04-06] MEDS: AMIODARONE 200 MG TAB PO SCH (08:09)
[2021-04-06] MEDS: DOCUSATE SODIUM 100 MG CAP PO SCH ×2 (08:09→20:24)
[2021-04-06] MEDS: FUROSEMIDE 20 MG TAB PO SCH (08:09)
[2021-04-06] MEDS: ATORVASTATIN 40 MG TAB PO SCH (08:10)
[2021-04-06] MEDS: METOPROLOL SUCC 25MG EXT REL TAB PO SCH (08:11)
[2021-04-06] MEDS: dexAMETHasone 6 MG in SYRINGE 0 ML IV SCH (09:48)
--- NOTE | 2021-04-06 13:47 | Hospitalist Progress Note ---
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 Sepsis Obstructive uropathy Complicated UTI CT abd/pelvis with 7 mm left UPJ calculus producing mild left-sided hydronephrosis with swelling of the left kidney and perinephric stranding present S/P Cystoscopy, Bilateral Retrogrades, Left Stent Insertion with Dr. Quiros. POD #2 Appreciate Urology Input and recommendation Urine culture is growing Proteus Mirabilis which is pansensitive We will continue current antibiotic-Zosyn to cover aspiration as well Received IV fluids Clinically stable Possible aspiration pneumonia Chest x-ray did show new airspace opacities within the right mid to lower lung zone Antibiotic is changed to intravenous Zosyn Appreciate speech therapy input and recommendation Recommended alternate solids and liquid diet with aspiration precaution (4) COVID-19: Plan: COVID 19 Infection CXR: There is a decreased inspiratory effort with otherwise no acute chest disease. Start on dexamethasone Isolation precautions Has been requiring up to 4 L of oxygen to maintain saturation Pulmonary hygiene (5) Cerebrovascular disease: Plan: H/o CVA in September 2019. Continue aspirin (6) Paroxysmal A-fib: Plan: Continue amiodarone, Toprol coumadin for anticoagulation Monitor INR-low at 1.3 We will continue warfarin at the current dose (7) Chronic diastolic (congestive) heart failure: Plan: Continue home Lasix (8) COPD (chronic obstructive pulmonary disease): Plan: Stable Does not use home inhalers (9) BPH (benign prostatic hypertrophy): Plan: Continue doxazosin Ambulatory dysfunction Continue PT OT We will likely need rehab when medically stable DVT Px: Coumadin Code status: FULL CODE PCP: [facility] Admission and Anticipated Discharge Date Admission Date: April 04, 2021 Subjective 04/06/2021 The patient was seen and examined in telemetry unit and in the COVID room He has been generally weak and lethargic and he still requires about 4 L of oxygen to maintain saturation Denies any pain, nausea or vomiting, fever and or chills Review of Systems Review of Systems: All systems reviewed and are unremarkable except as noted below Neurologic: Alert, awake and oriented x3. Generally weak and lethargic Physical Exam Physical Exam: Lying in bed with minimal shortness of breath at rest Constitutional: well developed, well nourished, + ill appearing and + obese Eyes: PERRL, conjunctivae normal, anicteric sclerae ENMT: external ear and nose normal, oropharynx normal Neck: trachea midline, no thyromegaly Respiratory: no respiratory distress Auscultation: + diminished lung sounds (Bilaterally) Cardiovascular: Rate/Rhythm: regular rate and regular rhythm; not tachycardic Heart Sounds: normal S1 and normal S2; no murmur Extremities: + edema (Trace edema bilaterally) Gastrointestinal (Abdomen): Inspection/Auscultation: abdomen not distended Percussion/Palpation: abdomen soft; abdomen nontender Musculoskeletal: No acute arthritis in any joint Neurologic: Alert, awake. Generally very weak and lethargic Results & Data Results & Data ([facility]) Vital Signs (Past 12 Hours) Vital Signs Temp Pulse Pulse Resp BP Pulse Ox 04/06/21 12:29 36.4 C L 68 20 148/90 H 92 04/06/21 09:18 36.4 C L 67 18 132/63 92 04/06/21 03:36 37.0 C 67 16 98/52 L 99 Laboratory Results Short CBC 04/06/21 Range/Units 06:22 WBC 7.12 (4.8-10.8) K/uL Hgb 11.9 L (14.0-18.0) g/dL Hct 36.9 L (42-52) % Plt Count 126 L (130-400) K/uL BMP 04/06/21 06:22 Sodium 136 Potassium 4.3 Chloride 107 Carbon Dioxide 23 BUN 37 H Creatinine 1.76 H Glucose 130 H Calcium 8.0 L Medications Administered Current Inpatient Medications Acetaminophen (Acetaminophen 325 Mg Tab) 650 mg PO Q4H PRN PRN Reason: Pain or Fever Stop: 05/04/21 16:01 Amiodarone HCl (Amiodarone 200 Mg Tab) [address] [facility] Stop: 05/05/21 08:59 Last Admin: 04/06/21 08:09 Dose: 200 mg Documented by: Aspirin (Aspirin 81 Mg Ectab) 81 mg PO DAILY [facility] Stop: 05/05/21 08:59 Last Admin: 04/06/21 08:09 Dose: 81 mg Documented by: Atorvastatin Calcium (Atorvastatin 40 Mg Tab) 40 mg PO DAILY [facility] Stop: 05/05/21 08:59 Last Admin: 04/06/21 08:10 Dose: 40 mg Documented by: Docusate Sodium (Docusate Sodium 100 Mg Cap) 100 mg PO BID [facility] Stop: 05/04/21 20:59 Last Admin: 04/06/21 08:09 Dose: 100 mg Documented by: Doxazosin Mesylate (Doxazosin Mesylate 1 Mg Tab) 1 mg PO QPM [facility] Stop: 05/04/21 20:59 Last Admin: 04/05/21 20:44 Dose: 1 mg Documented by: Famotidine (Famotidine 20 Mg Tab) 20 mg PO BID [facility] Stop: 05/04/21 20:59 Last Admin: 04/06/21 08:09 Dose: 20 mg Documented by: Furosemide (Furosemide 20 Mg Tab) 20 mg PO MOWEFR@0900 [facility] Stop: 05/06/21 08:59 Last Admin: 04/06/21 08:09 Dose: 20 mg Documented by: Dexamethasone 6 mg/ Syringe 1.5 mls @ 1 mls/min IV QAM [facility] Stop: 05/05/21 15:59 Last Admin: 04/06/21 09:48 Dose: 1 mls/min Documented by: Piperacillin Sod/Tazobactam (Sod 3.375 gm/ Dextrose) 115 mls @ 28.75 mls/hr IV Q8H [facility]; Protocol Stop: 04/13/21 03:59 Last Infusion: 04/06/21 08:04 Dose: Infused Documented by: Lisinopril (Lisinopril 10 Mg Tab) 10 mg PO QAM [facility] Stop: 05/05/21 08:59 Last Admin: 04/06/21 08:09 Dose: 10 mg Documented by: Magnesium Oxide (Magnesium Oxide 400 Mg Tab) 400 mg PO BID [facility] Stop: 05/04/21 20:59 Last Admin: 04/06/21 08:09 Dose: 400 mg Documented by: Metoprolol Succinate (Metoprolol Succ 25mg Ext Rel Tab) 12.5 mg PO QAM [facility] Stop: 05/05/21 03:34 Last Admin: 04/06/21 08:11 Dose: 12.5 mg Documented by: Miscellaneous Information (Piperacill/Tazobac Consult Active) 1 ea N/A UD PRN PRN Reason: Consult Stop: 05/05/21 22:35 Ondansetron HCl (Ondansetron Inj 2 Mg/Ml 2 Ml Vial) 4 mg IV Q6H PRN PRN Reason: Nausea Stop: 05/04/21 16:01 Polyethylene Glycol (Polyethylene (Miralax) 17 Gm Pack) 17 gm PO DAILY PRN PRN Reason: Constipation Stop: 05/04/21 16:01 Warfarin Sodium (Warfarin Sod 5 Mg Tab) 5 mg PO DAILY@1600 [facility] Stop: 05/05/21 15:59 Last Admin: 04/05/21 16:45 Dose: 5 mg Documented by: (1) COPD (chronic obstructive pulmonary disease) COPD type: emphysema Emphysema type: centrilobular Qualified Code(s): J43.2 - Centrilobular emphysema
[2021-04-06] MEDS: WARFARIN SOD 5 MG TAB PO SCH (16:50)
[2021-04-06] MEDS: DOXAZOSIN MESYLATE 1 MG TAB PO SCH (20:23)
[2021-04-07] MEDS: PIPERACILLIN/TAZOBACTAM 3.375 GM in DEXTROSE 5% 100 ML IV SCH (04:07)
[2021-04-07 07:29] LABS: INR 1.7 (0.9-1.1); Prothrombin Time 16.6 Seconds (9.0-12.0)
[2021-04-07] MEDS: dexAMETHasone 6 MG in SYRINGE 0 ML IV SCH (08:42)
[2021-04-07] MEDS: ATORVASTATIN 40 MG TAB PO SCH (08:43)
[2021-04-07] MEDS: MAGNESIUM OXIDE 400 MG TAB PO SCH ×2 (08:43→20:30)
[2021-04-07] MEDS: AMIODARONE 200 MG TAB PO SCH (08:43)
[2021-04-07] MEDS: METOPROLOL SUCC 25MG EXT REL TAB PO SCH (08:44)
[2021-04-07] MEDS: DOCUSATE SODIUM 100 MG CAP PO SCH ×2 (08:44→20:30)
[2021-04-07] MEDS: ASPIRIN 81 MG ECTAB PO SCH (08:44)
[2021-04-07] MEDS: lisinopril 10 MG TAB PO SCH (08:44)
[2021-04-07] MEDS: FAMOTIDINE 20 MG TAB PO SCH ×2 (09:55→20:30)
[2021-04-07] MEDS ORDERED: FUROSEMIDE 40 MG/4 ML VIAL IV ONE (11:56)
--- NOTE | 2021-04-07 12:19 | Hospitalist Progress Note ---
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 Sepsis Obstructive uropathy Complicated UTI CT abd/pelvis with 7 mm left UPJ calculus producing mild left-sided hydronephrosis with swelling of the left kidney and perinephric stranding present S/P Cystoscopy, Bilateral Retrogrades, Left Stent Insertion with Dr. Quiros. POD #2 Appreciate Urology Input and recommendation Urine culture is growing Proteus Mirabilis which is pansensitive We will continue current antibiotic-Zosyn to cover aspiration as well Received IV fluids Clinically stable Possible aspiration pneumonia Chest x-ray did show new airspace opacities within the right mid to lower lung zone Antibiotic is changed to intravenous Zosyn Appreciate speech therapy input and recommendation Recommended alternate solids and liquid diet with aspiration precaution Zosyn has been changed to intravenous Unasyn and down the line oral Augmentin upon discharge (4) COVID-19: Plan: COVID 19 Infection CXR: There is a decreased inspiratory effort with otherwise no acute chest disease. Start on dexamethasone Isolation precautions Has been requiring up to 4 L of oxygen to maintain saturation Pulmonary hygiene Clinically better and will give 40 mill of Lasix IV today (5) Cerebrovascular disease: Plan: H/o CVA in September 2019. Continue aspirin (6) Paroxysmal A-fib: Plan: Continue amiodarone, Toprol coumadin for anticoagulation Monitor INR-low at 1.3 We will continue warfarin at the current dose INR is 1.7 has up to 322 (7) Chronic diastolic (congestive) heart failure: Plan: Continue home Lasix (8) COPD (chronic obstructive pulmonary disease): Plan: Stable Does not use home inhalers (9) BPH (benign prostatic hypertrophy): Plan: Continue doxazosin Ambulatory dysfunction Continue PT OT-appreciate input We will likely need rehab when medically stable DVT Px: Coumadin Code status: FULL CODE PCP: Felix Admission and Anticipated Discharge Date Admission Date: April 04, 2021 Subjective 04/06/2021 The patient was seen and examined in telemetry unit and in the COVID room He has been generally weak and lethargic and he still requires about 4 L of oxygen to maintain saturation Denies any pain, nausea or vomiting, fever and or chills 04/07/2021 The patient was seen and examined in telemetry unit and in the COVID room He has been feeling much better Cough is improved and shortness of breath is improved to He has been requiring about 4 L of oxygen via nasal cannula to maintain saturation Review of Systems Review of Systems: All systems reviewed and are unremarkable except as noted below Neurologic: Alert, awake and oriented x3. Generally weak and lethargic Physical Exam Physical Exam: Lying in bed with minimal shortness of breath at rest Constitutional: well developed, well nourished, + ill appearing and + obese Eyes: PERRL, conjunctivae normal, anicteric sclerae ENMT: external ear and nose normal, oropharynx normal Neck: trachea midline, no thyromegaly Respiratory: no respiratory distress Auscultation: + diminished lung sounds (Bilaterally) Cardiovascular: Rate/Rhythm: regular rate and regular rhythm; not tachycardic Heart Sounds: normal S1 and normal S2; no murmur Extremities: + edema (Trace edema bilaterally) Gastrointestinal (Abdomen): Inspection/Auscultation: abdomen not distended Percussion/Palpation: abdomen soft; abdomen nontender Musculoskeletal: No acute arthritis in any joint Neurologic: Alert, awake and oriented x3. Generally weak but no focal sensory and motor deficit appreciated Results & Data Results & Data ([facility]) Vital Signs (Past 12 Hours) Vital Signs Temp Pulse Pulse Resp BP Pulse Ox 04/07/21 08:32 36.9 C 70 18 143/92 H 94 04/07/21 04:52 77 04/07/21 04:14 36.4 C L 16 122/59 L 93 Medications Administered Current Inpatient Medications Acetaminophen (Acetaminophen 325 Mg Tab) 650 mg PO Q4H PRN PRN Reason: Pain or Fever Stop: 05/04/21 16:01 Amiodarone HCl ([facility] 200 Mg [facility]) [facility] [place]: 05/05/21 08:59 Last Admin: 04/07/21 08:43 Dose: 200 mg Documented by: Aspirin (Aspirin 81 Mg Ectab) 81 mg PO DAILY [facility] Stop: 05/05/21 08:59 Last Admin: 04/07/21 08:44 Dose: 81 mg Documented by: Atorvastatin Calcium (Atorvastatin 40 Mg Tab) 40 mg PO DAILY [facility] Stop: 05/05/21 08:59 Last Admin: 04/07/21 08:43 Dose: 40 mg Documented by: Docusate Sodium (Docusate Sodium 100 Mg Cap) 100 mg PO BID [facility] Stop: 05/04/21 20:59 Last Admin: 04/07/21 08:44 Dose: 100 mg Documented by: Doxazosin Mesylate (Doxazosin Mesylate 1 Mg Tab) 1 mg PO QPM [facility] Stop: 05/04/21 20:59 Last Admin: 04/06/21 20:23 Dose: 1 mg Documented by: Famotidine (Famotidine 20 Mg Tab) 20 mg PO BID [facility] Stop: 05/04/21 20:59 Last Admin: 04/07/21 09:55 Dose: 20 mg Documented by: Furosemide (Furosemide 20 Mg Tab) 20 mg PO MOWEFR@0900 [facility] Stop: 05/06/21 08:59 Last Admin: 04/06/21 08:09 Dose: 20 mg Documented by: Dexamethasone 6 mg/ Syringe 1.5 mls @ 1 mls/min IV QAM [facility] Stop: 05/05/21 15:59 Last Admin: 04/07/21 08:42 Dose: 1 mls/min Documented by: Ampicillin Sodium/Sulbactam Sodium 1,500 mg/ Sodium Chloride 104 mls @ 208 mls/hr IV Q6 [facility] Stop: 04/12/21 11:59 Lisinopril (Lisinopril 10 Mg Tab) 10 mg PO QAM [facility] Stop: 05/05/21 08:59 Last Admin: 04/07/21 08:44 Dose: 10 mg Documented by: Magnesium Oxide (Magnesium Oxide 400 Mg Tab) 400 mg PO BID [facility] Stop: 05/04/21 20:59 Last Admin: 04/07/21 08:43 Dose: 400 mg Documented by: Metoprolol Succinate (Metoprolol Succ 25mg Ext Rel Tab) 12.[facility] [place]: 05/05/21 03:34 Last Admin: 04/07/21 08:44 Dose: 12.5 mg Documented by: Ondansetron HCl (Ondansetron Inj 2 Mg/Ml 2 Ml Vial) 4 mg IV Q6H PRN PRN Reason: Nausea Stop: 05/04/21 16:01 Polyethylene Glycol (Polyethylene (Miralax) 17 Gm Pack) 17 gm PO DAILY PRN PRN Reason: Constipation Stop: 05/04/21 16:01 Warfarin Sodium (Warfarin Sod 5 Mg Tab) 5 mg PO DAILY@1600 [facility] Stop: 05/05/21 15:59 Last Admin: 04/06/21 16:50 Dose: 5 mg Documented by: (1) COPD (chronic obstructive pulmonary disease) COPD type: emphysema Emphysema type: centrilobular Qualified Code(s): J43.2 - Centrilobular emphysema
[2021-04-07] MEDS: AMPICILLIN/SULBACTAM SOD 1,500 MG in 0.9 % SODIUM CHLORIDE 100 ML IV SCH ×3 (12:37→23:40)
[2021-04-07] MEDS: WARFARIN SOD 5 MG TAB PO SCH (17:19)
[2021-04-07] MEDS: DOXAZOSIN MESYLATE 1 MG TAB PO SCH (20:30)
[2021-04-08] MEDS: AMPICILLIN/SULBACTAM SOD 1,500 MG in 0.9 % SODIUM CHLORIDE 100 ML IV SCH ×3 (05:18→17:23)
[2021-04-08 07:54] LABS: Prothrombin Time 19.2 Seconds (9.0-12.0)
[2021-04-08 08:14] LABS: BUN Creatinine Ratio 29.9 (10-20); Calcium 7.7 mg/dl (8.5-10.1); Creatinine Clr Calc Pharmacy 38.7 ml/min; Est GFR (African American) 44.1 ml/min; Est GFR (Non-African American) 38.1 ml/min; Potassium 3.9 mmol/L (3.5-5.1)
[2021-04-08] MEDS: FAMOTIDINE 20 MG TAB PO SCH ×2 (09:16→21:04)
[2021-04-08] MEDS: MAGNESIUM OXIDE 400 MG TAB PO SCH ×2 (09:16→21:03)
[2021-04-08] MEDS: dexAMETHasone 6 MG in SYRINGE 0 ML IV SCH (09:16)
[2021-04-08] MEDS: METOPROLOL SUCC 25MG EXT REL TAB PO SCH (09:17)
[2021-04-08] MEDS: lisinopril 10 MG TAB PO SCH (09:17)
[2021-04-08] MEDS: DOCUSATE SODIUM 100 MG CAP PO SCH ×2 (09:17→21:04)
[2021-04-08] MEDS: AMIODARONE 200 MG TAB PO SCH (09:17)
[2021-04-08] MEDS: ASPIRIN 81 MG ECTAB PO SCH (09:17)
[2021-04-08] MEDS: ATORVASTATIN 40 MG TAB PO SCH (09:17)
[2021-04-08] MEDS: FUROSEMIDE 20 MG TAB PO SCH (09:18)
--- NOTE | 2021-04-08 16:54 | Hospitalist Progress Note ---
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 with generalized weakness x 3 days and was found to have covid 19 and sepsis 2/2 complicated UTI and obstructing left ureteral stone. Sepsis Obstructive uropathy Complicated UTI CT abd/pelvis with 7 mm left UPJ calculus producing mild left-sided hydronephrosis with swelling of the left kidney and perinephric stranding present S/P Cystoscopy, Bilateral Retrogrades, Left Stent Insertion with Dr. Quiros. POD #2 Appreciate Urology Input and recommendation Urine culture is growing Proteus Mirabilis which is pansensitive We will continue current antibiotic-Zosyn to cover aspiration as well Received IV fluids The antibiotic were changed to Unasyn to cover aspiration pneumonia Possible aspiration pneumonia Chest x-ray did show new airspace opacities within the right mid to lower lung zone Antibiotic is changed to intravenous Zosyn Appreciate speech therapy input and recommendation Recommended alternate solids and liquid diet with aspiration precaution Zosyn has been changed to intravenous Unasyn and down the line oral Augmentin upon discharge Clinically much better (4) COVID-19: Plan: COVID 19 Infection CXR: There is a decreased inspiratory effort with otherwise no acute chest disease. Start on dexamethasone Isolation precautions Has been requiring up to 4 L of oxygen to maintain saturation Pulmonary hygiene Clinically better and will give 40 mill of Lasix IV today Saturating normally on room air and has to wait until the isolation days are over before he can be transferred (5) Cerebrovascular disease: Plan: H/o CVA in September 2019. Continue aspirin (6) Paroxysmal A-fib: Plan: Continue amiodarone, Toprol coumadin for anticoagulation Monitor INR-low at 1.3 We will continue warfarin at the current dose INR is therapeutic at 2.0 as of 04/08/2021 (7) Chronic diastolic (congestive) heart failure: Plan: Continue home Lasix (8) COPD (chronic obstructive pulmonary disease): Plan: Stable Does not use home inhalers (9) BPH (benign prostatic hypertrophy): Plan: Continue doxazosin Ambulatory dysfunction Continue PT OT-appreciate input We will likely need rehab when medically stable DVT Px: Coumadin Code status: FULL CODE PCP: [facility] Admission and Anticipated Discharge Date Admission Date: April 04, 2021 Subjective 04/06/2021 The patient was seen and examined in telemetry unit and in the COVID room He has been generally weak and lethargic and he still requires about 4 L of oxygen to maintain saturation Denies any pain, nausea or vomiting, fever and or chills 04/07/2021 The patient was seen and examined in telemetry unit and in the COVID room He has been feeling much better Cough is improved and shortness of breath is improved to He has been requiring about 4 L of oxygen via nasal cannula to maintain saturation 04/08/2021 The patient was seen and examined in telemetry unit and in the COVID room He has been feeling much better and saturating normally on room air Remains weak but otherwise stable Review of Systems Review of Systems: All systems reviewed and are unremarkable except as noted below Neurologic: Alert, awake and oriented x3. Generally weak and lethargic Physical Exam Physical Exam: Sitting on a chair with some cough but no shortness of breath Constitutional: well developed, well nourished, + ill appearing and + obese Eyes: PERRL, conjunctivae normal, anicteric sclerae ENMT: external ear and nose normal, oropharynx normal Neck: trachea midline, no thyromegaly Respiratory: no respiratory distress Auscultation: + diminished lung sounds (Bilaterally) Cardiovascular: Rate/Rhythm: regular rate and regular rhythm; not tachycardic Heart Sounds: normal S1 and normal S2; no murmur Extremities: + edema (Trace edema bilaterally) Gastrointestinal (Abdomen): Inspection/Auscultation: abdomen not distended Percussion/Palpation: abdomen soft; abdomen nontender Neurologic: Alert and awake Results & Data Results & Data ([facility]) Vital Signs (Past 12 Hours) Vital Signs Temp Pulse Pulse Pulse Resp BP Pulse Ox 04/08/21 16:42 81 04/08/21 16:00 04/08/21 15:35 37.0 C 77 20 122/65 95 04/08/21 11:13 36.9 C 93 H 22 131/75 98 04/08/21 08:00 59 L 04/08/21 07:42 36.5 C 63 14 148/63 H 98 Pulse Ox 04/08/21 16:42 04/08/21 16:00 94 04/08/21 15:35 04/08/21 11:13 04/08/21 08:00 04/08/21 07:42 Laboratory Results BMP 04/08/21 06:51 Sodium 138 Potassium 3.9 Chloride 107 Carbon Dioxide 24 BUN 50 H Creatinine 1.67 H Glucose 91 Calcium 7.7 L Medications Administered Current Inpatient Medications Acetaminophen (Acetaminophen 325 Mg Tab) 650 mg PO Q4H PRN PRN Reason: Pain or Fever Stop: 05/04/21 16:01 Amiodarone HCl (Amiodarone 200 Mg Tab) 200 mg PO QAM [facility] Stop: 05/05/21 08:59 Last Admin: 04/08/21 09:17 Dose: 200 mg Documented by: Aspirin (Aspirin 81 Mg Ectab) 81 mg PO DAILY [facility] Stop: 05/05/21 08:59 Last Admin: 04/08/21 09:17 Dose: 81 mg Documented by: Atorvastatin Calcium (Atorvastatin 40 Mg Tab) 40 mg PO DAILY [facility] Stop: 05/05/21 08:59 Last Admin: 04/08/21 09:17 Dose: 40 mg Documented by: Docusate Sodium (Docusate Sodium 100 Mg Cap) 100 mg PO BID [facility] Stop: 05/04/21 20:59 Last Admin: 04/08/21 09:17 Dose: 100 mg Documented by: Doxazosin Mesylate (Doxazosin Mesylate 1 Mg Tab) 1 mg PO QPM [facility] Stop: 05/04/21 20:59 Last Admin: 04/07/21 20:30 Dose: 1 mg Documented by: Famotidine (Famotidine 20 Mg Tab) 20 mg PO BID [facility] Stop: 05/04/21 20:59 Last Admin: 04/08/21 09:16 Dose: 20 mg Documented by: Furosemide (Furosemide 20 Mg Tab) 20 mg PO MOWEFR@0900 [facility] Stop: 05/06/21 08:59 Last Admin: 04/08/21 09:18 Dose: 20 mg Documented by: Dexamethasone 6 mg/ Syringe 1.5 mls @ 1 mls/min IV QAM [facility] Stop: 05/05/21 15:59 Last Admin: 04/08/21 09:16 Dose: 1 mls/min Documented by: Ampicillin Sodium/Sulbactam Sodium 1,500 mg/ Sodium Chloride 104 mls @ 208 mls/hr IV Q6 [facility] Stop: 04/12/21 11:59 Last Infusion: 04/08/21 12:35 Dose: Infused Documented by: Lisinopril (Lisinopril 10 Mg Tab) 10 mg PO QAM [facility] Stop: 05/05/21 08:59 Last Admin: 04/08/21 09:17 Dose: 10 mg Documented by: Magnesium Oxide (Magnesium Oxide 400 Mg Tab) 400 mg PO BID [facility] Stop: 05/04/21 20:59 Last Admin: 04/08/21 09:16 Dose: 400 mg Documented by: Metoprolol Succinate (Metoprolol Succ 25mg Ext Rel Tab) [facility] Stop: 05/05/21 03:34 Last Admin: 04/08/21 09:17 Dose: 12.5 mg Documented by: Ondansetron HCl (Ondansetron Inj 2 Mg/Ml 2 Ml Vial) 4 mg IV Q6H PRN PRN Reason: Nausea Stop: 05/04/21 16:01 Polyethylene Glycol (Polyethylene (Miralax) 17 Gm Pack) 17 gm PO DAILY PRN PRN Reason: Constipation Stop: 05/04/21 16:01 Warfarin Sodium (Warfarin Sod 5 Mg Tab) 5 mg PO DAILY@1600 [facility] Stop: 05/05/21 15:59 Last Admin: 04/07/21 17:19 Dose: 5 mg Documented by: (1) COPD (chronic obstructive pulmonary disease) COPD type: emphysema Emphysema type: centrilobular Qualified Code(s): J43.2 - Centrilobular emphysema
[2021-04-08] MEDS: WARFARIN SOD 5 MG TAB PO SCH (17:09)
[2021-04-08] MEDS: DOXAZOSIN MESYLATE 1 MG TAB PO SCH (21:03)
[2021-04-09] MEDS: AMPICILLIN/SULBACTAM SOD 1,500 MG in 0.9 % SODIUM CHLORIDE 100 ML IV SCH ×5 (05:49→23:20)
[2021-04-09] MEDS: AMIODARONE 200 MG TAB PO SCH (08:28)
[2021-04-09] MEDS: FAMOTIDINE 20 MG TAB PO SCH ×2 (08:28→20:16)
[2021-04-09] MEDS: DOCUSATE SODIUM 100 MG CAP PO SCH ×2 (08:28→20:15)
[2021-04-09] MEDS: ASPIRIN 81 MG ECTAB PO SCH (08:28)
[2021-04-09] MEDS: lisinopril 10 MG TAB PO SCH (08:28)
[2021-04-09] MEDS: MAGNESIUM OXIDE 400 MG TAB PO SCH ×2 (08:28→20:16)
[2021-04-09] MEDS: METOPROLOL SUCC 25MG EXT REL TAB PO SCH (08:28)
[2021-04-09] MEDS: ATORVASTATIN 40 MG TAB PO SCH (08:29)
[2021-04-09] MEDS: dexAMETHasone 6 MG in SYRINGE 0 ML IV SCH (08:34)
--- NOTE | 2021-04-09 12:55 | Hospitalist Progress Note ---
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 Sepsis Obstructive uropathy Complicated UTI CT abd/pelvis with 7 mm left UPJ calculus producing mild left-sided hydronephrosis with swelling of the left kidney and perinephric stranding present S/P Cystoscopy, Bilateral Retrogrades, Left Stent Insertion with Dr. Quiros. POD #2 Appreciate Urology Input and recommendation Urine culture is growing Proteus Mirabilis which is pansensitive We will continue current antibiotic-Zosyn to cover aspiration as well Received IV fluids The antibiotic were changed to Unasyn to cover aspiration pneumonia Possible aspiration pneumonia Chest x-ray did show new airspace opacities within the right mid to lower lung zone Antibiotic is changed to intravenous Zosyn Appreciate speech therapy input and recommendation Recommended alternate solids and liquid diet with aspiration precaution Zosyn has been changed to intravenous Unasyn and down the line oral Augmentin upon discharge Required mechanical ventilation since this morning-continue IV Unasyn (4) COVID-19: Plan: COVID 19 Infection CXR: There is a decreased inspiratory effort with otherwise no acute chest disease. Start on dexamethasone Isolation precautions Has been requiring up to 4 L of oxygen to maintain saturation Pulmonary hygiene Clinically better and will give 40 mill of Lasix IV today Saturating normally on room air and has to wait until the isolation days are over before he can be transferred Condition deteriorated and required mechanical ventilator Discussed with the in detail (5) Cerebrovascular disease: Plan: H/o CVA in September 2019. Continue aspirin (6) Paroxysmal A-fib: Plan: Continue amiodarone, Toprol coumadin for anticoagulation Monitor INR-low at 1.3 We will continue warfarin at the current dose INR is therapeutic at 2.0 as of 04/08/2021 Will change Coumadin to subcu Lovenox 80 mg twice daily (7) Chronic diastolic (congestive) heart failure: Plan: Continue home Lasix (8) COPD (chronic obstructive pulmonary disease): Plan: Stable Does not use home inhalers (9) BPH (benign prostatic hypertrophy): Plan: Continue doxazosin Ambulatory dysfunction Continue PT OT-appreciate input We will likely need rehab when medically stable DVT Px: Coumadin Code status: FULL CODE PCP: Felix Admission and Anticipated Discharge Date Admission Date: April 04, 2021 Subjective 04/06/2021 The patient was seen and examined in telemetry unit and in the COVID room He has been generally weak and lethargic and he still requires about 4 L of oxygen to maintain saturation Denies any pain, nausea or vomiting, fever and or chills 04/07/2021 The patient was seen and examined in telemetry unit and in the COVID room He has been feeling much better Cough is improved and shortness of breath is improved to He has been requiring about 4 L of oxygen via nasal cannula to maintain saturation 04/08/2021 The patient was seen and examined in telemetry unit and in the COVID room He has been feeling much better and saturating normally on room air Remains weak but otherwise stable 04/09/2021 The patient was seen and examined in telemetry unit and in the COVID room His condition deteriorated this morning and is requiring very high flow oxygen and later on was intubated Remains intubated and sedated during my examination Review of Systems Review of Systems: Unobtainable due to endotracheal tube Physical Exam Physical Exam: Remains sedated on mechanical ventilator Constitutional: well developed, well nourished, + ill appearing and + obese Eyes: PERRL, conjunctivae normal, anicteric sclerae ENMT: external ear and nose normal, oropharynx normal Neck: trachea midline, no thyromegaly Respiratory: no respiratory distress Auscultation: + diminished lung sounds (Bilaterally) Cardiovascular: Rate/Rhythm: regular rate and regular rhythm; not tachycardic Heart Sounds: normal S1 and normal S2; no murmur Extremities: + edema (Trace edema bilaterally) Gastrointestinal (Abdomen): Inspection/Auscultation: abdomen not distended Percussion/Palpation: abdomen soft; abdomen nontender Results & Data Results & Data ([facility]) Vital Signs (Past 12 Hours) Vital Signs Temp Pulse Pulse Pulse Resp BP Pulse Ox 04/09/21 12:36 36.8 C 102 H 19 121/65 97 04/09/21 08:57 36.9 C 91 H 18 140/95 99 04/09/21 07:36 81 04/09/21 03:46 36.6 C 76 18 152/81 H 93 Medications Administered Current Inpatient Medications Acetaminophen (Acetaminophen 325 Mg Tab) 650 mg PO Q4H PRN PRN Reason: Pain or Fever Stop: 05/04/21 16:01 Amiodarone HCl (Amiodarone 200 Mg Tab) 200 mg PO QAM [facility] Stop: 05/05/21 08:59 Last Admin: 04/09/21 08:28 Dose: 200 mg Documented by: Aspirin (Aspirin 81 Mg Ectab) 81 mg PO DAILY [facility] Stop: 05/05/21 08:59 Last Admin: 04/09/21 08:28 Dose: 81 mg Documented by: Atorvastatin Calcium (Atorvastatin 40 Mg Tab) 40 mg PO DAILY [facility] Stop: 05/05/21 08:59 Last Admin: 04/09/21 08:29 Dose: 40 mg Documented by: Docusate Sodium (Docusate Sodium 100 Mg Cap) 100 mg PO BID [facility] Stop: 05/04/21 20:59 Last Admin: 04/09/21 08:28 Dose: 100 mg Documented by: Doxazosin Mesylate (Doxazosin Mesylate 1 Mg Tab) 1 mg PO QPM [facility] Stop: 05/04/21 20:59 Last Admin: 04/08/21 21:03 Dose: 1 mg Documented by: Famotidine (Famotidine 20 Mg Tab) 20 mg PO BID [facility] Stop: 05/04/21 20:59 Last Admin: 04/09/21 08:28 Dose: 20 mg Documented by: Furosemide (Furosemide 20 Mg Tab) 20 mg PO MOWEFR@0900 [facility] Stop: 05/06/21 08:59 Last Admin: 04/08/21 09:18 Dose: 20 mg Documented by: Dexamethasone 6 mg/ Syringe 1.5 mls @ 1 mls/min IV QAM [facility] Stop: 05/05/21 15:59 Last Admin: 04/09/21 08:34 Dose: 1 mls/min Documented by: Ampicillin Sodium/Sulbactam Sodium 1,500 mg/ Sodium Chloride 104 mls @ 208 mls/hr IV Q6 [facility] Stop: 04/12/21 11:59 Last Admin: 04/09/21 12:29 Dose: 208 mls/hr Documented by: Lisinopril (Lisinopril 10 Mg Tab) 10 mg PO QAM [facility] Stop: 05/05/21 08:59 Last Admin: 04/09/21 08:28 Dose: 10 mg Documented by: Magnesium Oxide (Magnesium Oxide 400 Mg Tab) 400 mg PO BID [facility] Stop: 05/04/21 20:59 Last Admin: 04/09/21 08:28 Dose: 400 mg Documented by: Metoprolol Succinate (Metoprolol Succ 25mg Ext Rel Tab) 12.5 mg PO QAM [facility] Stop: 05/05/21 03:34 Last Admin: 04/09/21 08:28 Dose: 12.5 mg Documented by: Ondansetron HCl (Ondansetron Inj 2 Mg/Ml 2 Ml Vial) 4 mg IV Q6H PRN PRN Reason: Nausea Stop: 05/04/21 16:01 Polyethylene Glycol (Polyethylene (Miralax) 17 Gm Pack) 17 gm PO DAILY PRN PRN Reason: Constipation Stop: 05/04/21 16:01 Warfarin Sodium (Warfarin Sod 5 Mg Tab) 5 mg PO DAILY@1600 [facility] Stop: 05/05/21 15:59 Last Admin: 04/08/21 17:09 Dose: 5 mg Documented by: (1) COPD (chronic obstructive pulmonary disease) COPD type: emphysema Emphysema type: centrilobular Qualified Code(s): J43.2 - Centrilobular emphysema
--- NOTE | 2021-04-09 13:03 | Hospitalist Progress Note ---
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 Sepsis Obstructive uropathy Complicated UTI CT abd/pelvis with 7 mm left UPJ calculus producing mild left-sided hydronephrosis with swelling of the left kidney and perinephric stranding present S/P Cystoscopy, Bilateral Retrogrades, Left Stent Insertion with Dr. Quiros. POD #2 Appreciate Urology Input and recommendation Urine culture is growing Proteus Mirabilis which is pansensitive We will continue current antibiotic-Zosyn to cover aspiration as well Received IV fluids The antibiotic were changed to Unasyn to cover aspiration pneumonia Possible aspiration pneumonia Chest x-ray did show new airspace opacities within the right mid to lower lung zone Antibiotic is changed to intravenous Zosyn Appreciate speech therapy input and recommendation Recommended alternate solids and liquid diet with aspiration precaution Zosyn has been changed to intravenous Unasyn and down the line oral Augmentin upon discharge Remains stable (4) COVID-19: Plan: COVID 19 Infection CXR: There is a decreased inspiratory effort with otherwise no acute chest disease. Start on dexamethasone Isolation precautions Has been requiring up to 4 L of oxygen to maintain saturation Pulmonary hygiene Clinically better and will give 40 mill of Lasix IV today Saturating normally on room air and has to wait until the isolation days are over before he can be transferred Covid was diagnosed on 04/04/2021-he will still need to be quarantined until 04/13/2021 (5) Cerebrovascular disease: Plan: H/o CVA in September 2019. Continue aspirin (6) Paroxysmal A-fib: Plan: Continue amiodarone, Toprol coumadin for anticoagulation Monitor INR-low at 1.3 We will continue warfarin at the current dose INR is therapeutic at 2.0 as of 04/08/2021 (7) Chronic diastolic (congestive) heart failure: Plan: Continue home Lasix (8) COPD (chronic obstructive pulmonary disease): Plan: Stable Does not use home inhalers (9) BPH (benign prostatic hypertrophy): Plan: Continue doxazosin Ambulatory dysfunction Continue PT OT-appreciate input We will likely need rehab when medically stable DVT Px: Coumadin Code status: FULL CODE PCP: Felix Admission and Anticipated Discharge Date Admission Date: April 04, 2021 Subjective 04/06/2021 The patient was seen and examined in telemetry unit and in the COVID room He has been generally weak and lethargic and he still requires about 4 L of oxygen to maintain saturation Denies any pain, nausea or vomiting, fever and or chills 04/07/2021 The patient was seen and examined in telemetry unit and in the COVID room He has been feeling much better Cough is improved and shortness of breath is improved to He has been requiring about 4 L of oxygen via nasal cannula to maintain saturation 04/08/2021 The patient was seen and examined in telemetry unit and in the COVID room He has been feeling much better and saturating normally on room air Remains weak but otherwise stable 04/09/2021 The patient was seen and examined in telemetry unit and in the COVID room He remains medically stable and does not have any shortness of breath at rest Noted to have questionable hematuria-we will get UA examination Has minimal cough Review of Systems Review of Systems: All systems reviewed and are unremarkable except as noted below Neurologic: Alert, awake and oriented x3. Generally weak and lethargic Physical Exam Physical Exam: Lying in bed comfortably. Constitutional: well developed, well nourished, + ill appearing and + obese Eyes: PERRL, conjunctivae normal, anicteric sclerae ENMT: external ear and nose normal, oropharynx normal Neck: trachea midline, no thyromegaly Respiratory: no respiratory distress Auscultation: + diminished lung sounds (Bilaterally) Cardiovascular: Rate/Rhythm: regular rate and regular rhythm; not tachycardic Heart Sounds: normal S1 and normal S2; no murmur Extremities: + edema (Trace edema bilaterally) Gastrointestinal (Abdomen): Inspection/Auscultation: abdomen not distended Percussion/Palpation: abdomen soft; abdomen nontender Musculoskeletal: No acute arthritis in any joint Neurologic: Alert, awake and oriented x3. Remains generally weak Results & Data Results & Data ([facility]) Vital Signs (Past 12 Hours) Vital Signs Temp Pulse Pulse Pulse Resp BP Pulse Ox 04/09/21 12:36 36.8 C 102 H 19 121/65 97 04/09/21 08:57 36.9 C 91 H 18 140/95 99 04/09/21 07:36 81 04/09/21 03:46 36.6 C 76 18 152/81 H 93 Medications Administered Current Inpatient Medications Acetaminophen (Acetaminophen 325 Mg Tab) 650 mg PO Q4H PRN PRN Reason: Pain or Fever Stop: 05/04/21 16:01 Amiodarone HCl (Amiodarone 200 Mg Tab) 200 mg PO QAM [facility] Stop: 05/05/21 08:59 Last Admin: 04/09/21 08:28 Dose: 200 mg Documented by: Aspirin (Aspirin 81 Mg Ectab) 81 mg PO DAILY [facility] Stop: 05/05/21 08:59 Last Admin: 04/09/21 08:28 Dose: 81 mg Documented by: Atorvastatin Calcium (Atorvastatin 40 Mg Tab) 40 mg PO DAILY [facility] Stop: 05/05/21 08:59 Last Admin: 04/09/21 08:29 Dose: 40 mg Documented by: Docusate Sodium (Docusate Sodium 100 Mg Cap) 100 mg PO BID [facility] Stop: 05/04/21 20:59 Last Admin: 04/09/21 08:28 Dose: 100 mg Documented by: Doxazosin Mesylate (Doxazosin Mesylate 1 Mg Tab) 1 mg PO QPM [facility] Stop: 05/04/21 20:59 Last Admin: 04/08/21 21:03 Dose: 1 mg Documented by: Famotidine (Famotidine 20 Mg Tab) 20 mg PO BID [facility] Stop: 05/04/21 20:59 Last Admin: 04/09/21 08:28 Dose: 20 mg Documented by: Furosemide (Furosemide 20 Mg Tab) 20 mg PO MOWEFR@0900 [facility] Stop: 05/06/21 08:59 Last Admin: 04/08/21 09:18 Dose: 20 mg Documented by: Dexamethasone 6 mg/ Syringe 1.5 mls @ 1 mls/min IV QAM [facility] Stop: 05/05/21 15:59 Last Admin: 04/09/21 08:34 Dose: 1 mls/min Documented by: Ampicillin Sodium/Sulbactam Sodium 1,500 mg/ Sodium Chloride 104 mls @ 208 mls/hr IV Q6 [facility] Stop: 04/12/21 11:59 Last Infusion: 04/09/21 13:01 Dose: Infused Documented by: Lisinopril (Lisinopril 10 Mg Tab) 10 mg PO QAM [facility] Stop: 05/05/21 08:59 Last Admin: 04/09/21 08:28 Dose: 10 mg Documented by: Magnesium Oxide (Magnesium Oxide 400 Mg Tab) 400 mg PO BID [facility] Stop: 05/04/21 20:59 Last Admin: 04/09/21 08:28 Dose: 400 mg Documented by: Metoprolol Succinate (Metoprolol Succ 25mg Ext Rel Tab) 12.5 mg PO QAM [facility] Stop: 05/05/21 03:34 Last Admin: 04/09/21 08:28 Dose: 12.5 mg Documented by: Ondansetron HCl (Ondansetron Inj 2 Mg/Ml 2 Ml Vial) 4 mg IV Q6H PRN PRN Reason: Nausea Stop: 05/04/21 16:01 Polyethylene Glycol (Polyethylene (Miralax) 17 Gm Pack) 17 gm PO DAILY PRN PRN Reason: Constipation Stop: 05/04/21 16:01 Warfarin Sodium (Warfarin Sod 5 Mg Tab) 5 mg PO DAILY@1600 [facility] Stop: 05/05/21 15:59 Last Admin: 04/08/21 17:09 Dose: 5 mg Documented by: (1) COPD (chronic obstructive pulmonary disease) COPD type: emphysema Emphysema type: centrilobular Qualified Code(s): J43.2 - Centrilobular emphysema
[2021-04-09] MEDS: WARFARIN SOD 5 MG TAB PO SCH (17:02)
[2021-04-09] MEDS: DOXAZOSIN MESYLATE 1 MG TAB PO SCH (20:15)
[2021-04-10] MEDS: AMPICILLIN/SULBACTAM SOD 1,500 MG in 0.9 % SODIUM CHLORIDE 100 ML IV SCH ×4 (05:43→23:39)
[2021-04-10 08:26] LABS: INR 2.3 (0.9-1.1)
[2021-04-10] MEDS: FAMOTIDINE 20 MG TAB PO SCH ×2 (08:58→21:20)
[2021-04-10] MEDS: AMIODARONE 200 MG TAB PO SCH (08:58)
[2021-04-10] MEDS: DOCUSATE SODIUM 100 MG CAP PO SCH ×2 (08:58→21:20)
[2021-04-10] MEDS: lisinopril 10 MG TAB PO SCH (08:58)
[2021-04-10] MEDS: ASPIRIN 81 MG ECTAB PO SCH (08:58)
[2021-04-10] MEDS: METOPROLOL SUCC 25MG EXT REL TAB PO SCH (08:58)
[2021-04-10] MEDS: ATORVASTATIN 40 MG TAB PO SCH (08:58)
[2021-04-10] MEDS: dexAMETHasone 6 MG in SYRINGE 0 ML IV SCH (08:59)
[2021-04-10] MEDS: MAGNESIUM OXIDE 400 MG TAB PO SCH ×2 (08:59→21:20)
--- NOTE | 2021-04-10 13:22 | Hospitalist Progress Note ---
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 Sepsis Obstructive uropathy Complicated UTI CT abd/pelvis with 7 mm left UPJ calculus producing mild left-sided hydronephrosis with swelling of the left kidney and perinephric stranding present S/P Cystoscopy, Bilateral Retrogrades, Left Stent Insertion with Dr. Quiros. Urine culture is growing Proteus Mirabilis which is pansensitive We will continue current antibiotic-Zosyn to cover aspiration as well Received IV fluids The antibiotic were changed to Unasyn to cover aspiration pneumonia as well Having minimal hematuria-we will ask urology to reevaluate Possible aspiration pneumonia Chest x-ray did show new airspace opacities within the right mid to lower lung zone Antibiotic is changed to intravenous Zosyn Appreciate speech therapy input and recommendation Recommended alternate solids and liquid diet with aspiration precaution Zosyn has been changed to intravenous Unasyn and down the line oral Augmentin upon discharge Remains stable (4) COVID-19: Plan: COVID 19 Infection CXR: There is a decreased inspiratory effort with otherwise no acute chest disease. Start on dexamethasone Isolation precautions Has been requiring up to 4 L of oxygen to maintain saturation Pulmonary hygiene Clinically better and will give 40 mill of Lasix IV today Saturating normally on room air and has to wait until the isolation days are over before he can be transferred Covid was diagnosed on 04/04/2021-he will still need to be quarantined until 04/13/2021 Remains reasonably asymptomatic with COVID-19 virus infection (5) Cerebrovascular disease: Plan: H/o CVA in September 2019. Continue aspirin (6) Paroxysmal A-fib: Plan: Continue amiodarone, Toprol coumadin for anticoagulation Monitor INR-low at 1.3 We will continue warfarin at the current dose INR is therapeutic at 2.0 as of 04/08/2021 INR is 2.3 today (7) Chronic diastolic (congestive) heart failure: Plan: Continue home Lasix (8) COPD (chronic obstructive pulmonary disease): Plan: Stable Does not use home inhalers (9) BPH (benign prostatic hypertrophy): Plan: Continue doxazosin Ambulatory dysfunction Continue PT OT-appreciate input We will likely need rehab when medically stable DVT Px: Coumadin Code status: FULL CODE PCP: Felix Admission and Anticipated Discharge Date Admission Date: April 04, 2021 Subjective 04/06/2021 The patient was seen and examined in telemetry unit and in the COVID room He has been generally weak and lethargic and he still requires about 4 L of oxygen to maintain saturation Denies any pain, nausea or vomiting, fever and or chills 04/07/2021 The patient was seen and examined in telemetry unit and in the COVID room He has been feeling much better Cough is improved and shortness of breath is improved to He has been requiring about 4 L of oxygen via nasal cannula to maintain saturation 04/08/2021 The patient was seen and examined in telemetry unit and in the COVID room He has been feeling much better and saturating normally on room air Remains weak but otherwise stable 04/09/2021 The patient was seen and examined in telemetry unit and in the COVID room He remains medically stable and does not have any shortness of breath at rest Noted to have questionable hematuria-we will get UA examination Has minimal cough 04/10/2021 The patient was seen and examined in telemetry unit and in the COVID room He remains very weak today and does not feel good but saturating normally on room air He continues to have hematuria Review of Systems Review of Systems: All systems reviewed and are unremarkable except as noted below Genitourinary: + hematuria Neurologic: Alert, awake and oriented x3. Generally weak and lethargic Physical Exam Physical Exam: Lying in bed comfortably. Constitutional: well developed, well nourished, + ill appearing and + obese Eyes: PERRL, conjunctivae normal, anicteric sclerae ENMT: external ear and nose normal, oropharynx normal Neck: trachea midline, no thyromegaly Respiratory: no respiratory distress Auscultation: + diminished lung sounds (Bilaterally) Cardiovascular: Rate/Rhythm: regular rate and regular rhythm; not tachycardic Heart Sounds: normal S1 and normal S2; no murmur Extremities: + edema (Trace edema bilaterally) Gastrointestinal (Abdomen): Inspection/Auscultation: abdomen not distended Percussion/Palpation: abdomen soft; abdomen nontender Musculoskeletal: No acute arthritis in any joint Neurologic: Alert and awake. Generally very weak and lethargic Genitourinary: Still having hematuria Results & Data Results & Data ([facility]) Vital Signs (Past 12 Hours) Vital Signs Temp Pulse Resp BP Pulse Ox 04/10/21 12:37 36.8 C 94 H 20 111/54 L 92 04/10/21 08:54 104 H 23 99/72 L 93 04/10/21 04:00 74 20 155/98 H 94 Medications Administered Current Inpatient Medications Acetaminophen (Acetaminophen 325 Mg Tab) 650 mg PO Q4H PRN PRN Reason: Pain or Fever Stop: 05/04/21 16:01 Amiodarone HCl (Amiodarone 200 Mg Tab) 200 mg PO QAM [facility] Stop: 05/05/21 08:59 Last Admin: 04/10/21 08:58 Dose: 200 mg Documented by: Aspirin (Aspirin 81 Mg Ectab) 81 mg PO DAILY [facility] Stop: 05/05/21 08:59 Last Admin: 04/10/21 08:58 Dose: 81 mg Documented by: Atorvastatin Calcium (Atorvastatin 40 Mg Tab) 40 mg PO DAILY [facility] Stop: 05/05/21 08:59 Last Admin: 04/10/21 08:58 Dose: 40 mg Documented by: Docusate Sodium (Docusate Sodium 100 Mg Cap) 100 mg PO BID [facility] Stop: 05/04/21 20:59 Last Admin: 04/10/21 08:58 Dose: 100 mg Documented by: Doxazosin Mesylate (Doxazosin Mesylate 1 Mg Tab) 1 mg PO QPM [facility] Stop: 05/04/21 20:59 Last Admin: 04/09/21 20:15 Dose: 1 mg Documented by: Famotidine (Famotidine 20 Mg Tab) 20 mg PO BID [facility] Stop: 05/04/21 20:59 Last Admin: 04/10/21 08:58 Dose: 20 mg Documented by: Furosemide (Furosemide 20 Mg Tab) 20 mg PO MOWEFR@0900 [facility] Stop: 05/06/21 08:59 Last Admin: 04/08/21 09:18 Dose: 20 mg Documented by: Dexamethasone 6 mg/ Syringe 1.5 mls @ 1 mls/min IV QAM [facility] Stop: 05/05/21 15:59 Last Admin: 04/10/21 08:59 Dose: 1 mls/min Documented by: Ampicillin Sodium/Sulbactam Sodium 1,500 mg/ Sodium Chloride 104 mls @ 208 mls/hr IV Q6 [facility] Stop: 04/12/21 11:59 Last Admin: 04/10/21 12:39 Dose: 208 mls/hr Documented by: Lisinopril (Lisinopril 10 Mg Tab) 10 mg PO QAM [facility] Stop: 05/05/21 08:59 Last Admin: 04/10/21 08:58 Dose: 10 mg Documented by: Magnesium Oxide (Magnesium Oxide 400 Mg Tab) 400 mg PO BID [facility] Stop: 05/04/21 20:59 Last Admin: 04/10/21 08:59 Dose: 400 mg Documented by: Metoprolol Succinate (Metoprolol Succ 25mg Ext Rel Tab) 12.5 mg PO [facility] Stop: 05/05/21 03:34 Last Admin: 04/10/21 08:58 Dose: 12.5 mg Documented by: Ondansetron HCl (Ondansetron Inj 2 Mg/Ml 2 Ml Vial) 4 mg IV Q6H PRN PRN Reason: Nausea Stop: 05/04/21 16:01 Polyethylene Glycol (Polyethylene (Miralax) 17 Gm Pack) 17 gm PO DAILY PRN PRN Reason: Constipation Stop: 05/04/21 16:01 Warfarin Sodium (Warfarin Sod 5 Mg Tab) 5 mg PO DAILY@1600 [facility] Stop: 05/05/21 15:59 Last Admin: 04/09/21 17:02 Dose: 5 mg Documented by: (1) COPD (chronic obstructive pulmonary disease) COPD type: emphysema Emphysema type: centrilobular Qualified Code(s): J43.2 - Centrilobular emphysema
[2021-04-10] MEDS: WARFARIN SOD 5 MG TAB PO SCH (17:00)
[2021-04-10] MEDS: DOXAZOSIN MESYLATE 1 MG TAB PO SCH (21:20)
[2021-04-11] MEDS: AMPICILLIN/SULBACTAM SOD 1,500 MG in 0.9 % SODIUM CHLORIDE 100 ML IV SCH ×4 (05:32→23:27)
[2021-04-11 07:34] LABS: Basophils # (auto) 0.01 K/uL (0-0.2); Basophils % (auto) 0.2 %; Eosinophils # (auto) 0.03 K/uL (0-0.5); Eosinophils % (auto) 0.5 %; Hematocrit (blood only) 35.7 % (42-52); Hemoglobin 11.8 g/dL (14.0-18.0); Immature Granulocytes # (auto) 0.05 K/uL (0.00-0.02); Immature Granulocytes % (auto) 0.9 %; Lymphocytes # (auto) 0.43 K/uL (1.2-3.4); Lymphocytes % (auto) 7.7 %; Mean Corpuscular Hemoglobin 31.1 pg (25-34); Mean Corpuscular Hgb Conc 33.1 g/dL (32-36); Mean Corpuscular Volume 94.2 fL (80-100); Mean Platelet Volume 10.3 fL (7.4-10.4); Monocytes # (auto) 1.02 K/uL (0.11-0.59); Monocytes % (auto) 18.2 %; Neutrophils # (auto) 4.05 K/uL (1.4-6.5); Neutrophils % (auto) 72.5 %; Platelet Count 133 K/uL (130-400); RDW Coefficient of Variation 14.2 % (11.5-14.5); Red Blood Count 3.79 M/uL (4.7-6.1); White Blood Count 5.59 K/uL (4.8-10.8)
[2021-04-11 07:49] LABS: INR 2.2 (0.9-1.1); Prothrombin Time 21.4 Seconds (9.0-12.0)
[2021-04-11 08:00] LABS: BUN Creatinine Ratio 33.1 (10-20); Calcium 7.7 mg/dl (8.5-10.1); Creatinine Clr Calc Pharmacy 52.2 ml/min; Est GFR (African American) 63.2 ml/min; Est GFR (Non-African American) 54.6 ml/min; Potassium 4.8 mmol/L (3.5-5.1)
[2021-04-11] MEDS: dexAMETHasone 6 MG in SYRINGE 0 ML IV SCH (09:03)
[2021-04-11] MEDS: METOPROLOL SUCC 25MG EXT REL TAB PO SCH (09:03)
[2021-04-11] MEDS: AMIODARONE 200 MG TAB PO SCH (09:04)
[2021-04-11] MEDS: ATORVASTATIN 40 MG TAB PO SCH (09:04)
[2021-04-11] MEDS: lisinopril 10 MG TAB PO SCH (09:04)
[2021-04-11] MEDS: ASPIRIN 81 MG ECTAB PO SCH (09:04)
[2021-04-11] MEDS: FAMOTIDINE 20 MG TAB PO SCH ×2 (09:04→20:24)
[2021-04-11] MEDS: DOCUSATE SODIUM 100 MG CAP PO SCH ×2 (09:04→20:24)
[2021-04-11] MEDS: FUROSEMIDE 20 MG TAB PO SCH (09:04)
[2021-04-11] MEDS: MAGNESIUM OXIDE 400 MG TAB PO SCH ×2 (09:05→20:24)
--- NOTE | 2021-04-11 13:07 | Hospitalist Progress Note ---
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 Sepsis Obstructive uropathy Complicated UTI CT abd/pelvis with 7 mm left UPJ calculus producing mild left-sided hydronephrosis with swelling of the left kidney and perinephric stranding present S/P Cystoscopy, Bilateral Retrogrades, Left Stent Insertion with Dr. Quiros. Urine culture is growing Proteus Mirabilis which is pansensitive We will continue current antibiotic-Zosyn to cover aspiration as well Received IV fluids The antibiotic were changed to Unasyn to cover aspiration pneumonia as well Having minimal hematuria-we will ask urology to reevaluate No evidence of any drop in hemoglobin with ongoing mild hematuria Will discuss with the urologist Possible aspiration pneumonia Chest x-ray did show new airspace opacities within the right mid to lower lung zone Antibiotic is changed to intravenous Zosyn Appreciate speech therapy input and recommendation Recommended alternate solids and liquid diet with aspiration precaution Zosyn has been changed to intravenous Unasyn and down the line oral Augmentin upon discharge Remains stable and feeling much better (4) COVID-19: Plan: COVID 19 Infection CXR: There is a decreased inspiratory effort with otherwise no acute chest disease. Start on dexamethasone Isolation precautions Has been requiring up to 4 L of oxygen to maintain saturation Pulmonary hygiene Clinically better and will give 40 mill of Lasix IV today Saturating normally on room air and has to wait until the isolation days are over before he can be transferred Covid was diagnosed on 04/04/2021-he will still need to be quarantined until 04/13/2021 Remains reasonably asymptomatic with COVID-19 virus infection Will need to be in isolation until ninth of this month (5) Cerebrovascular disease: Plan: H/o CVA in September 2019. Continue aspirin (6) Paroxysmal A-fib: Plan: Continue amiodarone, Toprol coumadin for anticoagulation Monitor INR-low at 1.3 We will continue warfarin at the current dose INR is therapeutic at 2.0 as of 04/08/2021 INR is 2.2 today (7) Chronic diastolic (congestive) heart failure: Plan: Continue home Lasix (8) COPD (chronic obstructive pulmonary disease): Plan: Stable Does not use home inhalers (9) BPH (benign prostatic hypertrophy): Plan: Continue doxazosin Ambulatory dysfunction Continue PT OT-appreciate input We will likely need rehab when medically stable DVT Px: Coumadin Code status: FULL CODE PCP: Felix Admission and Anticipated Discharge Date Admission Date: April 04, 2021 Subjective 04/06/2021 The patient was seen and examined in telemetry unit and in the COVID room He has been generally weak and lethargic and he still requires about 4 L of oxygen to maintain saturation Denies any pain, nausea or vomiting, fever and or chills 04/07/2021 The patient was seen and examined in telemetry unit and in the COVID room He has been feeling much better Cough is improved and shortness of breath is improved to He has been requiring about 4 L of oxygen via nasal cannula to maintain saturation 04/08/2021 The patient was seen and examined in telemetry unit and in the COVID room He has been feeling much better and saturating normally on room air Remains weak but otherwise stable 04/09/2021 The patient was seen and examined in telemetry unit and in the COVID room He remains medically stable and does not have any shortness of breath at rest Noted to have questionable hematuria-we will get UA examination Has minimal cough 04/10/2021 The patient was seen and examined in telemetry unit and in the COVID room He remains very weak today and does not feel good but saturating normally on room air He continues to have hematuria 04/11/2021 The patient was seen and examined in telemetry unit and in the COVID room He has been feeling much better today Remains generally weak but denies any other significant symptoms Review of Systems Review of Systems: All systems reviewed and are unremarkable except as noted below Genitourinary: + hematuria Neurologic: Alert, awake and oriented x3. Generally weak and lethargic Physical Exam Physical Exam: Lying in bed comfortably. Constitutional: well developed, well nourished, + ill appearing and + obese Eyes: PERRL, conjunctivae normal, anicteric sclerae ENMT: external ear and nose normal, oropharynx normal Neck: trachea midline, no thyromegaly Respiratory: no respiratory distress Auscultation: + diminished lung sounds (Bilaterally) Cardiovascular: Rate/Rhythm: regular rate and regular rhythm; not tachycardic Heart Sounds: normal S1 and normal S2; no murmur Extremities: + edema (Trace edema bilaterally) Gastrointestinal (Abdomen): Inspection/Auscultation: abdomen not distended Percussion/Palpation: abdomen soft; abdomen nontender Musculoskeletal: No acute arthritis in any joint Neurologic: normal touch/pain/proprioception and moves all extremities; no focal motor deficits Remain generally very weak Results & Data Results & Data ([facility]) Vital Signs (Past 12 Hours) Vital Signs Temp Pulse Pulse Resp BP Pulse Ox 04/11/21 12:00 36.4 C 86 14 112/97 94 04/11/21 07:44 36.9 C 65 15 143/70 H 93 04/11/21 04:21 36.6 C 61 14 154/82 H 92 Laboratory Results Short CBC 04/11/21 Range/Units 06:52 WBC 5.59 (4.8-10.8) K/uL Hgb 11.8 L (14.0-18.0) g/dL Hct 35.7 L (42-52) % Plt Count 133 (130-400) K/uL BMP 04/11/21 06:52 Sodium 139 Potassium 4.8 Chloride 107 Carbon Dioxide 27 BUN 41 H Creatinine 1.24 Glucose 84 Calcium 7.7 L Medications Administered Current Inpatient Medications Acetaminophen (Acetaminophen 325 Mg Tab) 650 mg PO Q4H PRN PRN Reason: Pain or Fever Stop: 05/04/21 16:01 Amiodarone HCl (Amiodarone 200 Mg Tab) 200 mg PO QAM [facility] Stop: 05/05/21 08:59 Last Admin: 04/11/21 09:04 Dose: 200 mg Documented by: Aspirin (Aspirin 81 Mg Ectab) 81 mg PO DAILY [facility] Stop: 05/05/21 08:59 Last Admin: 04/11/21 09:04 Dose: 81 mg Documented by: Atorvastatin Calcium (Atorvastatin 40 Mg Tab) 40 mg PO DAILY [facility] Stop: 05/05/21 08:59 Last Admin: 04/11/21 09:04 Dose: 40 mg Documented by: Docusate Sodium (Docusate Sodium 100 Mg Cap) 100 mg PO BID [facility] Stop: 05/04/21 20:59 Last Admin: 04/11/21 09:04 Dose: 100 mg Documented by: Doxazosin Mesylate (Doxazosin Mesylate 1 Mg Tab) 1 mg PO QPM [facility] Stop: 05/04/21 20:59 Last Admin: 04/10/21 21:20 Dose: 1 mg Documented by: Famotidine (Famotidine 20 Mg Tab) 20 mg PO BID [facility] Stop: 05/04/21 20:59 Last Admin: 04/11/21 09:04 Dose: 20 mg Documented by: Furosemide (Furosemide 20 Mg Tab) 20 mg PO MOWEFR@0900 [facility] Stop: 05/06/21 08:59 Last Admin: 04/11/21 09:04 Dose: 20 mg Documented by: Dexamethasone 6 mg/ Syringe 1.5 mls @ 1 mls[facility] [place]: 05/05/21 15:59 Last Admin: 04/11/21 09:03 Dose: 1 mls/min Documented by: Ampicillin Sodium/Sulbactam Sodium 1,500 mg/ Sodium Chloride 104 mls @ 208 mls/hr IV Q6 [facility] Stop: 04/12/21 11:59 Last Admin: 04/11/21 12:35 Dose: 208 mls/hr Documented by: Lisinopril (Lisinopril 10 Mg Tab) [facility] [place]: 05/05/21 08:59 Last Admin: 04/11/21 09:04 Dose: 10 mg Documented by: Magnesium Oxide (Magnesium Oxide 400 Mg Tab) 400 mg PO BID [facility] Stop: 05/04/21 20:59 Last Admin: 04/11/21 09:05 Dose: 400 mg Documented by: Metoprolol Succinate (Metoprolol Succ 25mg Ext Rel Tab) 12.5 [facility] [place]: 05/05/21 03:34 Last Admin: 04/11/21 09:03 Dose: 12.5 mg Documented by: Ondansetron HCl (Ondansetron Inj 2 Mg/Ml 2 Ml Vial) 4 mg IV Q6H PRN PRN Reason: Nausea Stop: 05/04/21 16:01 Polyethylene Glycol (Polyethylene (Miralax) 17 Gm Pack) 17 gm PO DAILY PRN PRN Reason: Constipation Stop: 05/04/21 16:01 Warfarin Sodium (Warfarin Sod 5 Mg Tab) 5 mg PO DAILY@1600 [facility] Stop: 05/05/21 15:59 Last Admin: 04/10/21 17:00 Dose: 5 mg Documented by: (1) COPD (chronic obstructive pulmonary disease) COPD type: emphysema Emphysema type: centrilobular Qualified Code(s): J43.2 - Centrilobular emphysema
[2021-04-11] MEDS: WARFARIN SOD 5 MG TAB PO SCH (15:19)
[2021-04-11] MEDS: DOXAZOSIN MESYLATE 1 MG TAB PO SCH (20:24)
[2021-04-12] MEDS: AMPICILLIN/SULBACTAM SOD 1,500 MG in 0.9 % SODIUM CHLORIDE 100 ML IV SCH (06:48)
[2021-04-12 08:11] LABS: INR 2.2 (0.9-1.1); Prothrombin Time 20.9 Seconds (9.0-12.0)
[2021-04-12] MEDS: METOPROLOL SUCC 25MG EXT REL TAB PO SCH (09:39)
[2021-04-12] MEDS: MAGNESIUM OXIDE 400 MG TAB PO SCH ×2 (09:39→21:43)
[2021-04-12] MEDS: ASPIRIN 81 MG ECTAB PO SCH (09:40)
[2021-04-12] MEDS: lisinopril 10 MG TAB PO SCH (09:40)
[2021-04-12] MEDS: dexAMETHasone 6 MG in SYRINGE 0 ML IV SCH (09:40)
[2021-04-12] MEDS: AMIODARONE 200 MG TAB PO SCH (09:40)
[2021-04-12] MEDS: DOCUSATE SODIUM 100 MG CAP PO SCH ×2 (09:40→21:44)
[2021-04-12] MEDS: FAMOTIDINE 20 MG TAB PO SCH ×2 (09:41→21:44)
[2021-04-12] MEDS: ATORVASTATIN 40 MG TAB PO SCH (09:41)
[2021-04-12] MEDS: ACETAMINOPHEN 325 MG TAB PO PRN (09:46)
[2021-04-12] MEDS ORDERED: traMADol HCL 50 MG TABLET PO PRN (15:41)
--- NOTE | 2021-04-12 16:32 | Hospitalist Progress Note ---
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 Sepsis Obstructive uropathy Complicated UTI CT abd/pelvis with 7 mm left UPJ calculus producing mild left-sided hydronephrosis with swelling of the left kidney and perinephric stranding present S/P Cystoscopy, Bilateral Retrogrades, Left Stent Insertion with Dr. Quiros. Urine culture is growing Proteus Mirabilis which is pansensitive We will continue current antibiotic-Zosyn to cover aspiration as well Received IV fluids The antibiotic were changed to Unasyn to cover aspiration pneumonia as well Having minimal hematuria-we will ask urology to reevaluate No evidence of any drop in hemoglobin with ongoing mild hematuria Will be reevaluated by the urologist for ingrowing hematuria Possible aspiration pneumonia Chest x-ray did show new airspace opacities within the right mid to lower lung zone Antibiotic is changed to intravenous Zosyn Appreciate speech therapy input and recommendation Recommended alternate solids and liquid diet with aspiration precaution Zosyn has been changed to intravenous Unasyn and down the line oral Augmentin upon discharge Remains stable and feeling much better Has minimal cough but no other symptoms We will get repeat chest x-ray tomorrow including lab works (4) COVID-19: Plan: COVID 19 Infection CXR: There is a decreased inspiratory effort with otherwise no acute chest disease. Start on dexamethasone Isolation precautions Has been requiring up to 4 L of oxygen to maintain saturation Pulmonary hygiene Clinically better and will give 40 mill of Lasix IV today Saturating normally on room air and has to wait until the isolation days are over before he can be transferred Covid was diagnosed on 04/04/2021-he will still need to be quarantined until 04/13/2021 Remains reasonably asymptomatic with COVID-19 virus infection Will need to be in isolation until ninth of this month (5) Cerebrovascular disease: Plan: H/o CVA in September 2019. Continue aspirin (6) Paroxysmal A-fib: Plan: Continue amiodarone, Toprol coumadin for anticoagulation Monitor INR-low at 1.3 We will continue warfarin at the current dose INR is therapeutic at 2.0 as of 04/08/2021 INR is 2.2 today (7) Chronic diastolic (congestive) heart failure: Plan: Continue home Lasix (8) COPD (chronic obstructive pulmonary disease): Plan: Stable Does not use home inhalers (9) BPH (benign prostatic hypertrophy): Plan: Continue doxazosin Ambulatory dysfunction Continue PT OT-appreciate input We will likely need rehab when medically stable DVT Px: Coumadin Code status: FULL CODE PCP: Felix Discussed with the sister in detail Admission and Anticipated Discharge Date Admission Date: April 04, 2021 Subjective 04/06/2021 The patient was seen and examined in telemetry unit and in the COVID room He has been generally weak and lethargic and he still requires about 4 L of oxygen to maintain saturation Denies any pain, nausea or vomiting, fever and or chills 04/07/2021 The patient was seen and examined in telemetry unit and in the COVID room He has been feeling much better Cough is improved and shortness of breath is improved to He has been requiring about 4 L of oxygen via nasal cannula to maintain saturation 04/08/2021 The patient was seen and examined in telemetry unit and in the COVID room He has been feeling much better and saturating normally on room air Remains weak but otherwise stable 04/09/2021 The patient was seen and examined in telemetry unit and in the COVID room He remains medically stable and does not have any shortness of breath at rest Noted to have questionable hematuria-we will get UA examination Has minimal cough 04/10/2021 The patient was seen and examined in telemetry unit and in the COVID room He remains very weak today and does not feel good but saturating normally on room air He continues to have hematuria 04/11/2021 The patient was seen and examined in telemetry unit and in the COVID room He has been feeling much better today Remains generally weak but denies any other significant symptoms 04/12/2021 The patient was seen and examined in telemetry unit and in the COVID room He has been weak and lethargic and complains to have more cough Requiring 2 L to maintain saturation Still has mild hematuria Review of Systems Review of Systems: All systems reviewed and are unremarkable except as noted below Genitourinary: + hematuria Neurologic: Alert, awake and oriented x3. Generally weak and lethargic Physical Exam Physical Exam: Lying in bed comfortably. Constitutional: well developed, well nourished, + ill appearing and + obese Eyes: PERRL, conjunctivae normal, anicteric sclerae ENMT: external ear and nose normal, oropharynx normal Neck: trachea midline, no thyromegaly Respiratory: no respiratory distress Auscultation: + diminished lung sounds (Bilaterally) Cardiovascular: Rate/Rhythm: regular rate and regular rhythm; not tachycardic Heart Sounds: normal S1 and normal S2; no murmur Extremities: + edema (Trace edema bilaterally) Gastrointestinal (Abdomen): Inspection/Auscultation: abdomen not distended Percussion/Palpation: abdomen soft; abdomen nontender Musculoskeletal: No acute arthritis in any joint Neurologic: normal touch/pain/proprioception and moves all extremities; no focal motor deficits Results & Data Results & Data ([facility]) Vital Signs (Past 12 Hours) Vital Signs Temp Pulse Pulse Pulse Resp BP Pulse Ox 04/12/21 16:00 62 04/12/21 15:53 37 C 63 16 104/57 L 93 04/12/21 12:22 36.7 C 74 20 131/64 92 04/12/21 07:24 36.8 C 54 L 19 142/57 H 96 Medications Administered Current Inpatient Medications Acetaminophen (Acetaminophen 325 Mg Tab) 650 mg PO Q4H PRN PRN Reason: Pain or Fever Stop: 05/04/21 16:01 Last Admin: 04/12/21 09:46 Dose: 650 mg Documented by: Amiodarone HCl (Amiodarone 200 Mg Tab) 200 mg PO QAM [facility] Stop: 05/05/21 08:59 Last Admin: 04/12/21 09:40 Dose: 200 mg Documented by: Aspirin (Aspirin 81 Mg Ectab) 81 mg PO DAILY [facility] Stop: 05/05/21 08:59 Last Admin: 04/12/21 09:40 Dose: 81 mg Documented by: Atorvastatin Calcium (Atorvastatin 40 Mg Tab) 40 mg PO DAILY [facility] Stop: 05/05/21 08:59 Last Admin: 04/12/21 09:41 Dose: 40 mg Documented by: Docusate Sodium (Docusate Sodium 100 Mg Cap) 100 mg PO BID [facility] Stop: 05/04/21 20:59 Last Admin: 04/12/21 09:40 Dose: 100 mg Documented by: Doxazosin Mesylate (Doxazosin Mesylate 1 Mg Tab) 1 mg PO QPM [facility] Stop: 05/04/21 20:59 Last Admin: 04/11/21 20:24 Dose: 1 mg Documented by: Famotidine (Famotidine 20 Mg Tab) 20 mg PO BID [facility] Stop: 05/04/21 20:59 Last Admin: 04/12/21 09:41 Dose: 20 mg Documented by: Furosemide (Furosemide 20 Mg Tab) 20 mg PO MOWEFR@0900 [facility] Stop: 05/06/21 08:59 Last Admin: 04/11/21 09:04 Dose: 20 mg Documented by: Dexamethasone 6 mg/ Syringe 1.5 mls @ 1 mls/min IV QAM [facility] Stop: 05/05/21 15:59 Last Admin: 04/12/21 09:40 Dose: 1 mls/min Documented by: Lisinopril (Lisinopril 10 Mg Tab) 10 mg PO QAM [facility] Stop: 05/05/21 08:59 Last Admin: 04/12/21 09:40 Dose: 10 mg Documented by: Magnesium Oxide (Magnesium Oxide 400 Mg Tab) 400 mg PO BID [facility] Stop: 05/04/21 20:59 Last Admin: 04/12/21 09:39 Dose: 400 mg Documented by: Metoprolol Succinate (Metoprolol Succ 25mg Ext Rel Tab) [facility] [place] Stop: 05/05/21 03:34 Last Admin: 04/12/21 09:39 Dose: 12.5 mg Documented by: Ondansetron HCl (Ondansetron Inj 2 Mg/Ml 2 Ml Vial) 4 mg IV Q6H PRN PRN Reason: Nausea Stop: 05/04/21 16:01 Polyethylene Glycol (Polyethylene (Miralax) 17 Gm Pack) 17 gm PO DAILY PRN PRN Reason: Constipation Stop: 05/04/21 16:01 Warfarin Sodium (Warfarin Sod 5 Mg Tab) 5 mg PO DAILY@1600 [facility] Stop: 05/05/21 15:59 Last Admin: 04/11/21 15:19 Dose: 5 mg Documented by: (1) COPD (chronic obstructive pulmonary disease) COPD type: emphysema Emphysema type: centrilobular Qualified Code(s): J43.2 - Centrilobular emphysema
[2021-04-12] MEDS: WARFARIN SOD 5 MG TAB PO SCH (17:17)
[2021-04-12] MEDS: DOXAZOSIN MESYLATE 1 MG TAB PO SCH (21:43)
[2021-04-13] MEDS: AMIODARONE 200 MG TAB PO SCH (08:07)
[2021-04-13] MEDS: dexAMETHasone 6 MG in SYRINGE 0 ML IV SCH (08:07)
[2021-04-13] MEDS: ASPIRIN 81 MG ECTAB PO SCH (08:08)
[2021-04-13] MEDS: FAMOTIDINE 20 MG TAB PO SCH ×2 (08:08→19:52)
[2021-04-13] MEDS: FUROSEMIDE 20 MG TAB PO SCH (08:08)
[2021-04-13] MEDS: ATORVASTATIN 40 MG TAB PO SCH (08:08)
[2021-04-13] MEDS: DOCUSATE SODIUM 100 MG CAP PO SCH ×2 (08:08→19:52)
[2021-04-13] MEDS: lisinopril 10 MG TAB PO SCH (08:09)
[2021-04-13] MEDS: MAGNESIUM OXIDE 400 MG TAB PO SCH ×2 (08:09→19:52)
[2021-04-13] MEDS: METOPROLOL SUCC 25MG EXT REL TAB PO SCH (08:09)
--- NOTE | 2021-04-13 08:46 | XRay Report ---
XR chest 1V portable CLINICAL HISTORY: Pneumonia COMPARISON STUDY: Chest radiograph April 05, 2021. FINDINGS: A curvilinear lucency projecting of the right lower lung. There is no pneumothorax or pleur al effusion. Right basilar consolidation is present. Right lung airspace opacity has improved since e xam of April 05, 2021. Mild left basilar opacity. There are median sternotomy wires. Dilatation of the thoracic aorta is again noted. Cardiomegaly is unchanged. IMPRESSION: 1. Curvilinear lucency projecting over the right lower lung. Although this could be artifactual, pneu moperitoneum cannot be excluded. Upright abdominal radiographs are recommended to evaluate for pneumo peritoneum. This finding will be called/faxed to the ordering provider at time of dictation. 2. Right basilar consolidation suggestive of pneumonia. Interval improvement since prior exam. 3. Mild left basilar opacity. 4. Cardiomegaly without evidence for pulmonary edema. ACT 112: Negative or not required by law. Electronically signed by: Tyron Chavez M.D. 04/13/2021 8:45 AM
[2021-04-13 08:56] LABS: Eosinophils # (auto) 0.03 K/uL (0-0.5); Eosinophils % (auto) 0.5 %; Hematocrit (blood only) 35.4 % (42-52); Hemoglobin 11.5 g/dL (14.0-18.0); Immature Granulocytes # (auto) 0.08 K/uL (0.00-0.02); Immature Granulocytes % (auto) 1.4 %; Lymphocytes # (auto) 0.38 K/uL (1.2-3.4); Lymphocytes % (auto) 6.7 %; Mean Corpuscular Hemoglobin 30.4 pg (25-34); Mean Corpuscular Hgb Conc 32.5 g/dL (32-36); Mean Corpuscular Volume 93.7 fL (80-100); Mean Platelet Volume 10.2 fL (7.4-10.4); Monocytes # (auto) 1.02 K/uL (0.11-0.59); Monocytes % (auto) 18.1 %; Neutrophils # (auto) 4.13 K/uL (1.4-6.5); Neutrophils % (auto) 73.3 %; Platelet Count 160 K/uL (130-400); RDW Coefficient of Variation 14.1 % (11.5-14.5); RDW Standard Deviation 48.3 fL (36.4-46.3); Red Blood Count 3.78 M/uL (4.7-6.1); White Blood Count 5.64 K/uL (4.8-10.8)
--- NOTE | 2021-04-13 09:34 | XRay Report ---
XR abdomen min 2V CLINICAL HISTORY: Upright abdominal xr for pneumoperitoneum. COMPARISON STUDY: CT of the abdomen and pelvis April 04, 2021. Chest radiograph performed earlier today. FINDINGS: No pneumoperitoneum is identified on this examination. The finding on chest radiograph fro m earlier today was artifactual. Left ureteral stent and Byrd catheter in place. Bowel gas pattern i s normal. IMPRESSION: 1. No pneumoperitoneum identified. Findings on chest radiograph performed earlier today was artifactu al. 2. No evidence for a bowel obstruction. 3. Left ureteral stent in place. ACT 112: Negative or not required by law. Electronically signed by: Tyron Chavez M.D. 04/13/2021 9:33 AM
[2021-04-13 09:35] LABS: BUN Creatinine Ratio 37.4 (10-20); Calcium 7.5 mg/dl (8.5-10.1); Creatinine Clr Calc Pharmacy 52.5 ml/min; Est GFR (African American) 63.9 ml/min; Est GFR (Non-African American) 55.1 ml/min; Potassium 4.7 mmol/L (3.5-5.1)
[2021-04-13] MEDS: WARFARIN SOD 5 MG TAB PO SCH (17:38)
--- NOTE | 2021-04-13 18:08 | Hospitalist Progress Note ---
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 Sepsis Obstructive uropathy Complicated UTI CT abd/pelvis with 7 mm left UPJ calculus producing mild left-sided hydronephrosis with swelling of the left kidney and perinephric stranding present S/P Cystoscopy, Bilateral Retrogrades, Left Stent Insertion with Dr. Quiros. Urine culture is growing Proteus Mirabilis which is pansensitive We will continue current antibiotic-Zosyn to cover aspiration as well The antibiotic were changed to Unasyn to cover aspiration pneumonia as well Case discussed with urology about the hematuria As per Urology, it was common to have hematuria after stent placement Continue palma catheter for now Hgb stable Continue monitor H/H Possible aspiration pneumonia Chest x-ray did show new airspace opacities within the right mid to lower lung zone Antibiotic is changed to intravenous Zosyn Appreciate speech therapy input and recommendation Recommended alternate solids and liquid diet with aspiration precaution Zosyn has been changed to intravenous Unasyn and down the line oral Augmentin upon discharge Repeat CXR showed curvilinear lucency projecting over the right lower lung. Right basilar consolidation suggestive of pneumonia. Mild left basilar opacity. KUB showed no pneumoperitoneum identified. Findings on chest radiograph performed earlier today was artifactual. Continue monitor closely (4) COVID-19: Plan: COVID 19 Infection Covid was diagnosed on 04/04/2021-he will still need to be quarantined until 04/13/2021 Repeat CXR showed right basilar consolidation suggestive of pneumonia. Mild left basilar opacity. CXR: There is a decreased inspiratory effort with otherwise no acute chest disease. Continue dexametahsone Currently on 2L oxygen [place] Continue incentive spirometry and flutter valve Clinically improves (5) Cerebrovascular disease: Plan: H/o CVA in September 2019. Continue aspirin (6) Paroxysmal A-fib: Plan: Continue amiodarone, Toprol Continue coumadin with INR 2.2 Continue monitor PT/INR (7) Chronic diastolic (congestive) heart failure: Plan: Continue home Lasix (8) COPD (chronic obstructive pulmonary disease): Plan: Stable Does not use home inhalers (9) BPH (benign prostatic hypertrophy): Plan: Continue doxazosin Ambulatory dysfunction Continue PT OT-appreciate input We will likely need rehab when medically stable DVT Px: Coumadin Code status: FULL CODE PCP: Felix Admission and Anticipated Discharge Date Admission Date: April 04, 2021 Subjective Patient was seen and examined for follow-up of shortness of breath due to COVID- 19 Lying in bed with no acute respiratory distress Currently on 2 L nasal cannula oxygen Patient said his breathing slightly stable He said that he feels weak He continues to have mild hematuria in the palma cath Denies any chest pain, palpitation, dizziness, and fever. Review of Systems Review of Systems: All systems reviewed & are unremarkable except as noted in Subjective Physical Exam Physical Exam: General- No acute distress Head- atraumatic Eyes- PERRL, EOMI, ENT- oropharynx clear Neck- supple, no JVD Lungs- +coarse BS Heart- regular rhythm; no murmur Abdomen- normal bowel sounds, soft, nontender Extremities- no calf tenderness, +edema Neuro- alert, oriented x 3; PERRL, EOMI; no facial palsy; no dysarthria Skin- warm & dry Results & Data Results & Data ([facility]) Vital Signs (Past 12 Hours) Vital Signs Temp Pulse Pulse Pulse Resp BP Pulse Ox 04/13/21 16:00 67 04/13/21 15:35 36.6 C 72 103/52 L 95 04/13/21 13:33 81/53 L 04/13/21 13:25 36.8 C 82 21 81/48 L 95 04/13/21 08:00 36.5 C 61 21 130/56 L 95 04/13/21 07:52 57 L (1) COPD (chronic obstructive pulmonary disease) COPD type: emphysema Emphysema type: centrilobular Qualified Code(s): J43.2 - Centrilobular emphysema
[2021-04-13] MEDS: DOXAZOSIN MESYLATE 1 MG TAB PO SCH ×2 (19:52→20:03)
[2021-04-14 06:48] LABS: Hematocrit (blood only) 34.1 % (42-52); Hemoglobin 11.2 g/dL (14.0-18.0); Mean Corpuscular Hemoglobin 30.5 pg (25-34); Mean Corpuscular Hgb Conc 32.8 g/dL (32-36); Mean Corpuscular Volume 92.9 fL (80-100); Platelet Count 168 K/uL (130-400); RDW Coefficient of Variation 14.2 % (11.5-14.5); RDW Standard Deviation 48.3 fL (36.4-46.3); Red Blood Count 3.67 M/uL (4.7-6.1); White Blood Count 6.12 K/uL (4.8-10.8)
[2021-04-14 07:10] LABS: INR 3.4 (0.9-1.1); Prothrombin Time 31.2 Seconds (9.0-12.0)
[2021-04-14] MEDS: MAGNESIUM OXIDE 400 MG TAB PO SCH ×2 (08:38→21:11)
[2021-04-14] MEDS: FAMOTIDINE 20 MG TAB PO SCH ×2 (08:38→21:11)
[2021-04-14] MEDS: AMIODARONE 200 MG TAB PO SCH (08:38)
[2021-04-14] MEDS: METOPROLOL SUCC 25MG EXT REL TAB PO SCH (08:38)
[2021-04-14] MEDS: DOCUSATE SODIUM 100 MG CAP PO SCH ×2 (08:38→21:11)
[2021-04-14] MEDS: ATORVASTATIN 40 MG TAB PO SCH (08:38)
[2021-04-14] MEDS: lisinopril 10 MG TAB PO SCH (08:38)
[2021-04-14] MEDS: ASPIRIN 81 MG ECTAB PO SCH (08:38)
[2021-04-14] MEDS: BENZONATATE 100 MG CAPSULE PO PRN (08:38)
[2021-04-14] MEDS: dexAMETHasone 6 MG in SYRINGE 0 ML IV SCH (08:39)
[2021-04-14] MEDS: ACETAMINOPHEN 325 MG TAB PO PRN ×2 (11:57→21:10)
[2021-04-14] MEDS ORDERED: WARFARIN SOD 2.5 MG TAB PO SCH (16:00)
--- NOTE | 2021-04-14 18:44 | Hospitalist Progress Note ---
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 Sepsis Obstructive uropathy Complicated UTI CT abd/pelvis with 7 mm left UPJ calculus producing mild left-sided hydronephrosis with swelling of the left kidney and perinephric stranding present S/P Cystoscopy, Bilateral Retrogrades, Left Stent Insertion with Dr. Quiros. Urine culture is growing Proteus Mirabilis which is pansensitive We will continue current antibiotic-Zosyn to cover aspiration as well The antibiotic were changed to Unasyn to cover aspiration pneumonia as well Case discussed with urology about the hematuria As per Urology, it was common to have hematuria after stent placement Continue palma catheter for now Hgb stable Continue monitor H/H Possible aspiration pneumonia Chest x-ray did show new airspace opacities within the right mid to lower lung zone Antibiotic is changed to intravenous Zosyn Appreciate speech therapy input and recommendation Recommended alternate solids and liquid diet with aspiration precaution Zosyn has been changed to intravenous Unasyn and down the line oral Augmentin upon discharge Repeat CXR showed curvilinear lucency projecting over the right lower lung. Right basilar consolidation suggestive of pneumonia. Mild left basilar opacity. KUB showed no pneumoperitoneum identified. Findings on chest radiograph performed earlier today was artifactual. Continue monitor closely (4) COVID-19: Plan: COVID 19 Infection Covid was diagnosed on 04/04/2021-he will still need to be quarantined until 04/13/2021 Repeat CXR showed right basilar consolidation suggestive of pneumonia. Mild left basilar opacity. CXR: There is a decreased inspiratory effort with otherwise no acute chest disease. Completed the course of dexametahsone Currently on 2L oxygen NC Continue incentive spirometry and flutter valve Clinically improves (5) Cerebrovascular disease: Plan: H/o CVA in September 2019. Continue aspirin (6) Paroxysmal A-fib: Plan: Continue amiodarone, Toprol Continue coumadin with INR 2.2 Continue monitor PT/INR (7) Chronic diastolic (congestive) heart failure: Plan: Continue home Lasix (8) COPD (chronic obstructive pulmonary disease): Plan: Stable Does not use home inhalers (9) BPH (benign prostatic hypertrophy): Plan: Continue doxazosin Ambulatory dysfunction Continue PT OT-appreciate input We will likely need rehab when medically stable DVT Px: Coumadin Code status: FULL CODE PCP: Felix Admission and Anticipated Discharge Date Admission Date: April 04, 2021 Subjective Patient was seen and examined for follow-up of shortness of breath due to COVID- 19 Lying in bed with no acute respiratory distress Currently on 2 L nasal cannula oxygen He did not want to participate in therapy today I called sister Erma, but no one answered Denies any chest pain, palpitation, dizziness, and fever. Review of Systems Review of Systems: All systems reviewed & are unremarkable except as noted in Subjective Physical Exam Physical Exam: General- No acute distress Head- atraumatic Eyes- PERRL, EOMI, ENT- oropharynx clear Neck- supple, no JVD Lungs- +coarse BS Heart- regular rhythm; no murmur Abdomen- normal bowel sounds, soft, nontender Extremities- no calf tenderness, +edema Neuro- alert, oriented x 3; PERRL, EOMI; no facial palsy; no dysarthria Skin- warm & dry Results & Data Results & Data ([facility]) Vital Signs (Past 12 Hours) Vital Signs Temp Pulse Resp BP Pulse Ox Pulse Ox 04/14/21 16:41 36.9 C 48 L 18 108/58 L 91 04/14/21 16:00 92 04/14/21 10:47 37 C 69 18 105/47 L 84 L 04/14/21 07:36 37 C 68 18 133/61 95 (1) COPD (chronic obstructive pulmonary disease) COPD type: emphysema Emphysema type: centrilobular Qualified Code(s): J43.2 - Centrilobular emphysema
[2021-04-14] MEDS: DOXAZOSIN MESYLATE 1 MG TAB PO SCH (21:11)
[2021-04-15] MEDS: METOPROLOL SUCC 25MG EXT REL TAB PO SCH (08:27)
[2021-04-15] MEDS: ATORVASTATIN 40 MG TAB PO SCH (08:27)
[2021-04-15] MEDS: FAMOTIDINE 20 MG TAB PO SCH ×2 (08:27→20:37)
[2021-04-15] MEDS: DOCUSATE SODIUM 100 MG CAP PO SCH ×2 (08:27→20:38)
[2021-04-15] MEDS: ASPIRIN 81 MG ECTAB PO SCH (08:28)
[2021-04-15] MEDS: MAGNESIUM OXIDE 400 MG TAB PO SCH ×2 (08:28→20:37)
[2021-04-15] MEDS: FUROSEMIDE 20 MG TAB PO SCH (08:28)
[2021-04-15] MEDS: lisinopril 10 MG TAB PO SCH (08:28)
[2021-04-15] MEDS: AMIODARONE 200 MG TAB PO SCH (08:28)
[2021-04-15 09:02] LABS: INR 4.2 (0.9-1.1); Prothrombin Time 37.7 Seconds (9.0-12.0)
[2021-04-15 09:12] LABS: BUN Creatinine Ratio 36.8 (10-20); Calcium 7.3 mg/dl (8.5-10.1); Est GFR (African American) 56.6 ml/min; Est GFR (Non-African American) 48.8 ml/min; Potassium 4.7 mmol/L (3.5-5.1)
[2021-04-15] MEDS: ACETAMINOPHEN 325 MG TAB PO PRN (15:10)
[2021-04-15] MEDS: DOXAZOSIN MESYLATE 1 MG TAB PO SCH (20:37)
--- NOTE | 2021-04-15 22:59 | Hospitalist Progress Note ---
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 Sepsis Obstructive uropathy Complicated UTI CT abd/pelvis with 7 mm left UPJ calculus producing mild left-sided hydronephrosis with swelling of the left kidney and perinephric stranding present S/P Cystoscopy, Bilateral Retrogrades, Left Stent Insertion with Dr. Quiros. Urine culture is growing Proteus Mirabilis which is pansensitive We will continue current antibiotic-Zosyn to cover aspiration as well The antibiotic were changed to Unasyn to cover aspiration pneumonia as well Case discussed with urology about the hematuria As per Urology, it was common to have hematuria after stent placement Continue palma catheter for now Hgb stable Possible aspiration pneumonia Chest x-ray did show new airspace opacities within the right mid to lower lung zone Antibiotic is changed to intravenous Zosyn Appreciate speech therapy input and recommendation Recommended alternate solids and liquid diet with aspiration precaution Zosyn has been changed to intravenous Unasyn and down the line oral Augmentin upon discharge Repeat CXR showed curvilinear lucency projecting over the right lower lung. Right basilar consolidation suggestive of pneumonia. Mild left basilar opacity. KUB showed no pneumoperitoneum identified. Findings on chest radiograph perfor med earlier today was artifactual. Continue monitor closely (4) COVID-19: Plan: COVID 19 Infection Covid was diagnosed on 04/04/2021-he will still need to be quarantined until 04/13/2021 Repeat CXR showed right basilar consolidation suggestive of pneumonia. Mild left basilar opacity. CXR: There is a decreased inspiratory effort with otherwise no acute chest disease. Completed the course of dexametahsone Currently on 2L oxygen [place] Continue incentive spirometry and flutter valve Clinically improves (5) Cerebrovascular disease: Plan: H/o CVA in September 2019. Continue aspirin (6) Paroxysmal A-fib: Plan: Continue amiodarone, Toprol Will hold coumadin due to INR 4.2 Continue monitor PT/INR (7) Chronic diastolic (congestive) heart failure: Plan: Continue home Lasix (8) COPD (chronic obstructive pulmonary disease): Plan: Stable Does not use home inhalers (9) BPH (benign prostatic hypertrophy): Plan: Continue doxazosin Ambulatory dysfunction Continue PT OT-appreciate input We will likely need rehab when medically stable DVT Px: Coumadin on hold since INR 4.2 Code status: FULL CODE PCP: Felix Admission and Anticipated Discharge Date Admission Date: April 04, 2021 Subjective Patient was seen and examined for follow-up of shortness of breath due to COVID- 19 Lying in bed with no acute respiratory distress Currently on 2 L nasal cannula oxygen Denies any chest pain, palpitation, dizziness, and fever. Review of Systems Review of Systems: All systems reviewed & are unremarkable except as noted in Subjective Physical Exam Physical Exam: General- No acute distress Head- atraumatic Eyes- PERRL, EOMI, ENT- oropharynx clear Neck- supple, no JVD Lungs- +coarse BS Heart- regular rhythm; no murmur Abdomen- normal bowel sounds, soft, nontender Extremities- no calf tenderness, +edema Neuro- alert, oriented x 3; PERRL, EOMI; no facial palsy; no dysarthria Skin- warm & dry Results & Data Results & Data ([facility]) Vital Signs (Past 12 Hours) Vital Signs Temp Pulse Pulse Resp BP Pulse Ox Pulse Ox 04/15/21 22:45 36.8 C 88 16 102/54 L 92 04/15/21 19:22 37.2 C 67 18 91/50 L 91 04/15/21 16:00 92 04/15/21 14:15 54 L 04/15/21 11:50 37 C 60 14 105/42 L (1) COPD (chronic obstructive pulmonary disease) COPD type: emphysema Emphysema type: centrilobular Qualified Code(s): J43.2 - Centrilobular emphysema
[2021-04-16 07:47] LABS: INR 3.9 (0.9-1.1); Prothrombin Time 35.2 Seconds (9.0-12.0)
[2021-04-16] MEDS: lisinopril 10 MG TAB PO SCH (08:22)
[2021-04-16] MEDS: FAMOTIDINE 20 MG TAB PO SCH ×2 (08:22→21:33)
[2021-04-16] MEDS: DOCUSATE SODIUM 100 MG CAP PO SCH ×2 (08:22→21:32)
[2021-04-16] MEDS: ASPIRIN 81 MG ECTAB PO SCH (08:22)
[2021-04-16] MEDS: AMIODARONE 200 MG TAB PO SCH (08:22)
[2021-04-16] MEDS: ATORVASTATIN 40 MG TAB PO SCH (08:22)
[2021-04-16] MEDS: METOPROLOL SUCC 25MG EXT REL TAB PO SCH (08:23)
[2021-04-16] MEDS: MAGNESIUM OXIDE 400 MG TAB PO SCH ×2 (08:23→21:32)
[2021-04-16] MEDS: ACETAMINOPHEN 325 MG TAB PO PRN ×2 (08:23→21:31)
--- NOTE | 2021-04-16 21:01 | Hospitalist Progress Note ---
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 Sepsis Obstructive uropathy Complicated UTI CT abd/pelvis with 7 mm left UPJ calculus producing mild left-sided hydronephrosis with swelling of the left kidney and perinephric stranding present S/P Cystoscopy, Bilateral Retrogrades, Left Stent Insertion with Dr. Quiros. Urine culture is growing Proteus Mirabilis which is pansensitive We will continue current antibiotic-Zosyn to cover aspiration as well The antibiotic were changed to Unasyn to cover aspiration pneumonia as well Case discussed with urology about the hematuria As per Urology, it was common to have hematuria after stent placement Continue palma catheter for now Hbg Stable Possible aspiration pneumonia Chest x-ray did show new airspace opacities within the right mid to lower lung zone Antibiotic is changed to intravenous Zosyn Appreciate speech therapy input and recommendation Recommended alternate solids and liquid diet with aspiration precaution Zosyn has been changed to intravenous Unasyn and down the line oral Augmentin upon discharge Repeat CXR showed curvilinear lucency projecting over the right lower lung. Right basilar consolidation suggestive of pneumonia. Mild left basilar opacity. KUB showed no pneumoperitoneum identified. Findings on chest radiograph perfor med earlier today was artifactual. Clinically stabe tenderness with (4) COVID-19: Plan: COVID 19 Infection Covid was diagnosed on 04/04/2021-he will still need to be quarantined until 04/13/2021 Repeat CXR showed right basilar consolidation suggestive of pneumonia. Mild left basilar opacity. CXR: There is a decreased inspiratory effort with otherwise no acute chest disease. Completed the course of dexametahsone Currently on 2L oxygen [place] Continue incentive spirometry and flutter valve Clinically improves (5) Cerebrovascular disease: Plan: H/o CVA in September 2019. Continue aspirin (6) Paroxysmal A-fib: Plan: Continue amiodarone, Toprol Continue to hold coumadin due since INR 3.9 Continue monitor PT/INR (7) Chronic diastolic (congestive) heart failure: Plan: Continue home Lasix (8) COPD (chronic obstructive pulmonary disease): Plan: Stable Does not use home inhalers (9) BPH (benign prostatic hypertrophy): Plan: Continue doxazosin Ambulatory dysfunction Continue PT OT-appreciate input We will likely need rehab when medically stable DVT Px: Coumadin to hold since INR 3.9 Code status: FULL CODE PCP: Felix Admission and Anticipated Discharge Date Admission Date: April 04, 2021 Subjective Patient was seen and examined for follow-up of shortness of breath due to COVID- 19 Lying in bed with no acute respiratory distress Currently on 2 L nasal cannula oxygen Palma catheter drained dark urine. Denies any chest pain, palpitation, dizziness, and fever. Review of Systems Review of Systems: All systems reviewed & are unremarkable except as noted in Subjective Physical Exam Physical Exam: General- No acute distress Head- atraumatic Eyes- PERRL, EOMI, ENT- oropharynx clear Neck- supple, no JVD Lungs- +coarse BS Heart- regular rhythm; no murmur Abdomen- normal bowel sounds, soft, nontender Extremities- no calf tenderness, +edema Neuro- alert, oriented x 3; PERRL, EOMI; no facial palsy; no dysarthria Skin- warm & dry Results & Data Results & Data ([facility]) Vital Signs (Past 12 Hours) Vital Signs Temp Pulse Pulse Pulse Resp BP BP 04/16/21 19:32 37.2 C 67 17 99/50 L 04/16/21 16:37 36.6 C 68 20 112/64 04/16/21 15:24 65 04/16/21 12:04 36.9 C 70 18 99/48 L Pulse Ox 04/16/21 19:32 93 04/16/21 16:37 92 04/16/21 15:24 04/16/21 12:04 95 (1) COPD (chronic obstructive pulmonary disease) COPD type: emphysema Emphysema type: centrilobular Qualified Code(s): J43.2 - Centrilobular emphysema
[2021-04-16] MEDS: DOXAZOSIN MESYLATE 1 MG TAB PO SCH (21:32)
[2021-04-16] MEDS ORDERED: SODIUM CHLORIDE 0.9% 500 ML IV ONE (23:51)
[2021-04-17 00:24] LABS: Basophils # (auto) 0.02 K/uL (0-0.2); Basophils % (auto) 0.2 %; Eosinophils # (auto) 0.15 K/uL (0-0.5); Eosinophils % (auto) 1.7 %; Hematocrit (blood only) 32.8 % (42-52); Hemoglobin 10.8 g/dL (14.0-18.0); Immature Granulocytes % (auto) 1.1 %; Lymphocytes % (auto) 7.9 %; Mean Corpuscular Hemoglobin 30.5 pg (25-34); Mean Corpuscular Hgb Conc 32.9 g/dL (32-36); Mean Corpuscular Volume 92.7 fL (80-100); Mean Platelet Volume 9.5 fL (7.4-10.4); Monocytes # (auto) 0.81 K/uL (0.11-0.59); Monocytes % (auto) 9.1 %; Neutrophils # (auto) 7.13 K/uL (1.4-6.5); Platelet Count 192 K/uL (130-400); RDW Coefficient of Variation 14.2 % (11.5-14.5); RDW Standard Deviation 48.3 fL (36.4-46.3); Red Blood Count 3.54 M/uL (4.7-6.1); White Blood Count 8.91 K/uL (4.8-10.8)
[2021-04-17 00:46] LABS: BUN Creatinine Ratio 33.1 (10-20); Creatinine Clr Calc Pharmacy 40.1 ml/min; Est GFR (African American) 47.5 ml/min; Magnesium 2.7 mg/dl (1.7-2.4); Potassium 4.7 mmol/L (3.5-5.1)
--- NOTE | 2021-04-17 00:54 | Communication Note ---
Date of Service: April 17, 2021 S BP noted to be 80s as per RN. Patient complaining of dizziness. No headache symptoms as per RN. Serum creatinine 1.57 from 1.36 (04/16) AP ARF, hypotension Monitor creatinine response to IVF Baseline UA Hold lisinopril, Lasix, and doxazosin for now Will relay to AM provider.
[2021-04-17] MEDS ORDERED: SODIUM CHLORIDE 0.9% 1000ML 1,000 ML IV ONE ×2 (01:00→06:16)
[2021-04-17 03:21] LABS: Appearance Urine Turbid (Clear); Bilirubin Urine Negative (Negative); Blood Urine 3+ (Negative); Color Urine Brown; Glucose Urine UA Negative (Negative); Ketones Urine Negative (Negative); Leukocyte Esterase Urine Trace (Negative); Nitrite Urine Negative (Negative); Protein Urine 2+ (Negative); Specific Gravity Urine 1.025 (1.000-1.030); Urobilinogen Urine Negative (Negative); pH Urine 5.5 (4.5-7.5)
[2021-04-17 03:22] LABS: Epithelial Cell Urine 0-5 /lpf (0-5); RBC Urine >30 /hpf (0-4)
[2021-04-17 03:23] LABS: Bacteria Urine 3+ (Negative); Mucus Urine Present (None Prsent); WBC Urine >30 /hpf (0-5)
[2021-04-17] MEDS: AMIODARONE 200 MG TAB PO SCH (08:09)
[2021-04-17] MEDS: ATORVASTATIN 40 MG TAB PO SCH (08:09)
[2021-04-17] MEDS: ASPIRIN 81 MG ECTAB PO SCH (08:09)
[2021-04-17] MEDS: DOCUSATE SODIUM 100 MG CAP PO SCH ×2 (08:09→20:12)
[2021-04-17] MEDS: FAMOTIDINE 20 MG TAB PO SCH ×2 (08:09→20:10)
[2021-04-17] MEDS: METOPROLOL SUCC 25MG EXT REL TAB PO SCH (08:09)
[2021-04-17] MEDS: MAGNESIUM OXIDE 400 MG TAB PO SCH ×2 (08:10→20:22)
[2021-04-17] MEDS: BENZONATATE 100 MG CAPSULE PO PRN ×2 (09:09→20:12)
[2021-04-17 09:47] LABS: Hematocrit (blood only) 35.3 % (42-52); Hemoglobin 11.6 g/dL (14.0-18.0); Mean Corpuscular Hemoglobin 30.9 pg (25-34); Mean Corpuscular Hgb Conc 32.9 g/dL (32-36); Mean Corpuscular Volume 93.9 fL (80-100); Mean Platelet Volume 9.9 fL (7.4-10.4); Platelet Count 178 K/uL (130-400); RDW Coefficient of Variation 14.3 % (11.5-14.5); RDW Standard Deviation 48.9 fL (36.4-46.3); Red Blood Count 3.76 M/uL (4.7-6.1); White Blood Count 7.17 K/uL (4.8-10.8)
[2021-04-17 09:54] LABS: INR 3.5 (0.9-1.1); Prothrombin Time 32.1 Seconds (9.0-12.0)
[2021-04-17 10:10] LABS: BUN Creatinine Ratio 30.8 (10-20); Calcium 7.1 mg/dl (8.5-10.1); Creatinine Clr Calc Pharmacy 45.2 ml/min; Est GFR (African American) 53.2 ml/min; Est GFR (Non-African American) 45.9 ml/min; Potassium 4.6 mmol/L (3.5-5.1)
--- NOTE | 2021-04-17 16:49 | Hospitalist Progress Note ---
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 Sepsis Obstructive uropathy Complicated UTI CT abd/pelvis with 7 mm left UPJ calculus producing mild left-sided hydronephrosis with swelling of the left kidney and perinephric stranding present S/P Cystoscopy, Bilateral Retrogrades, Left Stent Insertion with Dr. Quiros. Urine culture is growing Proteus Mirabilis which is pansensitive We will continue current antibiotic-Zosyn to cover aspiration as well The antibiotic were changed to Unasyn to cover aspiration pneumonia as well Case discussed with urology about the hematuria As per Urology, it was common to have hematuria after stent placement Continue palma catheter for now Hbg Stable at 11.6 Possible aspiration pneumonia Chest x-ray did show new airspace opacities within the right mid to lower lung zone Antibiotic is changed to intravenous Zosyn Appreciate speech therapy input and recommendation Recommended alternate solids and liquid diet with aspiration precaution Zosyn has been changed to intravenous Unasyn and down the line oral Augmentin upon discharge Repeat CXR showed curvilinear lucency projecting over the right lower lung. Right basilar consolidation suggestive of pneumonia. Mild left basilar opacity. KUB showed no pneumoperitoneum identified. Findings on chest radiograph performed earlier today was artifactual. Clinically stable (4) COVID-19: Plan: COVID 19 Infection Covid was diagnosed on 04/04/2021-he will still need to be quarantined until 04/13/2021 Repeat CXR showed right basilar consolidation suggestive of pneumonia. Mild left basilar opacity. CXR: There is a decreased inspiratory effort with otherwise no acute chest disease. Completed the course of dexamethasone Continue to wean off the oxygen supplement Continue incentive spirometry and flutter valve Clinically improves (5) Cerebrovascular disease: Plan: H/o CVA in September 2019. Continue aspirin (6) Paroxysmal A-fib: Plan: Continue amiodarone, Toprol Continue to hold coumadin since INR 3.5 Continue monitor PT/INR (7) Chronic diastolic (congestive) heart failure: Plan: Continue home Lasix (8) COPD (chronic obstructive pulmonary disease): Plan: Stable Does not use home inhalers (9) BPH (benign prostatic hypertrophy): Plan: Continue doxazosin Ambulatory dysfunction Continue PT OT-appreciate input We will likely need rehab when medically stable DVT Px: Coumadin to hold since INR 3.5 Code status: FULL CODE PCP: Felix Admission and Anticipated Discharge Date Admission Date: April 04, 2021 Subjective Patient was seen and examined for follow-up of shortness of breath due to COVID- 19, hematuria and weakness Lying in bed with no acute respiratory distress Last night he is blood pressure was low and was placed on IVF Currently on 2 L nasal cannula with oxygen saturation above 99% Palma catheter continue to drained dark urine. Nurse said that pt was sitting on the chair for the most part of this morning Denies any chest pain, palpitation, dizziness, and fever. Review of Systems Review of Systems: All systems reviewed & are unremarkable except as noted in Subjective Physical Exam Physical Exam: General- No acute distress Head- atraumatic Eyes- PERRL, EOMI, ENT- oropharynx clear Neck- supple, no JVD Lungs- +coarse BS Heart- regular rhythm; no murmur Abdomen- normal bowel sounds, soft, nontender Extremities- no calf tenderness, +edema Neuro- alert, oriented x 3; PERRL, EOMI; no facial palsy; no dysarthria Skin- warm & dry Results & Data Results & Data ([facility]) Vital Signs (Past 12 Hours) Vital Signs Temp Pulse Pulse Resp BP Pulse Ox 04/17/21 14:38 36.3 C L 82 20 113/48 L 94 04/17/21 12:03 37 C 78 18 100/55 L 99 04/17/21 07:56 36.6 C 67 13 114/55 L 95 04/17/21 07:30 59 L 04/17/21 05:13 36.6 C 60 20 102/71 95 (1) COPD (chronic obstructive pulmonary disease) COPD type: emphysema Emphysema type: centrilobular Qualified Code(s): J43.2 - Centrilobular emphysema
[2021-04-17] MEDS: ACETAMINOPHEN 325 MG TAB PO PRN (20:11)
[2021-04-18 07:55] LABS: Hemoglobin 11.3 g/dL (14.0-18.0); Mean Corpuscular Hgb Conc 32.3 g/dL (32-36); Mean Corpuscular Volume 92.8 fL (80-100); Mean Platelet Volume 9.5 fL (7.4-10.4); Platelet Count 188 K/uL (130-400); RDW Coefficient of Variation 14.2 % (11.5-14.5); RDW Standard Deviation 48.6 fL (36.4-46.3); Red Blood Count 3.77 M/uL (4.7-6.1); White Blood Count 7.67 K/uL (4.8-10.8)
[2021-04-18 08:13] LABS: BUN Creatinine Ratio 29.5 (10-20); Calcium 7.2 mg/dl (8.5-10.1); Est GFR (African American) 58.6 ml/min; Est GFR (Non-African American) 50.6 ml/min; INR 3.6 (0.9-1.1); Potassium 4.6 mmol/L (3.5-5.1); Prothrombin Time 32.8 Seconds (9.0-12.0)
[2021-04-18] MEDS: DOCUSATE SODIUM 100 MG CAP PO SCH ×2 (08:53→20:21)
[2021-04-18] MEDS: FAMOTIDINE 20 MG TAB PO SCH ×2 (08:54→20:21)
[2021-04-18] MEDS: AMIODARONE 200 MG TAB PO SCH (08:54)
[2021-04-18] MEDS: ATORVASTATIN 40 MG TAB PO SCH (08:54)
[2021-04-18] MEDS: ASPIRIN 81 MG ECTAB PO SCH (08:54)
[2021-04-18] MEDS: METOPROLOL SUCC 25MG EXT REL TAB PO SCH (08:54)
[2021-04-18] MEDS: MAGNESIUM OXIDE 400 MG TAB PO SCH (10:39)
[2021-04-18] MEDS: ACETAMINOPHEN 325 MG TAB PO PRN ×2 (14:29→21:40)
[2021-04-18] MEDS: AMOXICILLIN/CLAVULANATE 875 MG TAB PO SCH ×2 (17:27→20:21)
--- NOTE | 2021-04-18 18:30 | Hospitalist Progress Note ---
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 Sepsis Obstructive uropathy Complicated UTI CT abd/pelvis with 7 mm left UPJ calculus producing mild left-sided hydronephrosis with swelling of the left kidney and perinephric stranding present S/P Cystoscopy, Bilateral Retrogrades, Left Stent Insertion with Dr. Quiros. Urine culture is growing Proteus Mirabilis which is pansensitive We will continue current antibiotic-Zosyn to cover aspiration as well The antibiotic were changed to Unasyn to cover aspiration pneumonia as well Case discussed with urology again about the hematuria As per Urology, it was common to have hematuria after stent placement Continue palma catheter for now Will consider to do a voiding trial in am Urine cx on 04/17 grew gram positive cocci started on Augmentin today Will follow urine sensitivity Possible aspiration pneumonia Chest x-ray did show new airspace opacities within the right mid to lower lung zone Antibiotic is changed to intravenous Zosyn Appreciate speech therapy input and recommendation Recommended alternate solids and liquid diet with aspiration precaution Zosyn has been changed to intravenous Unasyn and down the line oral Augmentin upon discharge Repeat CXR showed curvilinear lucency projecting over the right lower lung. Right basilar consolidation suggestive of pneumonia. Mild left basilar opacity. KUB showed no pneumoperitoneum identified. Findings on chest radiograph performed earlier today was artifactual. Clinically stable (4) COVID-19: Plan: COVID 19 Infection Covid was diagnosed on 04/04/2021-he will still need to be quarantined until 04/13/2021 Repeat CXR showed right basilar consolidation suggestive of pneumonia. Mild left basilar opacity. CXR showed decreased inspiratory effort with otherwise no acute chest disease. Completed the course of dexamethasone Continue to wean off the oxygen supplement Continue incentive spirometry and flutter valve Clinically improves (5) Cerebrovascular disease: Plan: H/o CVA in September 2019. Continue aspirin (6) Paroxysmal A-fib: Plan: Continue amiodarone, Toprol Continue to hold coumadin since INR 3.6 Continue monitor PT/INR (7) Chronic diastolic (congestive) heart failure: Plan: Continue home Lasix (8) COPD (chronic obstructive pulmonary disease): Plan: Stable Does not use home inhalers (9) BPH (benign prostatic hypertrophy): Plan: Continue doxazosin Ambulatory dysfunction Continue PT OT-appreciate input We will likely need rehab when medically stable DVT Px: Coumadin to hold since INR 3.6 Code status: FULL CODE PCP: Felix Admission and Anticipated Discharge Date Admission Date: April 04, 2021 Subjective Patient was seen and examined for follow-up of shortness of breath due to COVID- 19, hematuria and weakness Lying in bed with no acute respiratory distress Pt is doing much better Currently he is saturated well on RA Palma catheter continue to drained dark urine. Spoke to his sister who is the POA and provided with updates Denies any chest pain, palpitation, dizziness, and fever. Review of Systems Review of Systems: All systems reviewed & are unremarkable except as noted in Subjective Physical Exam Physical Exam: General- No acute distress Head- atraumatic Eyes- PERRL, EOMI, ENT- oropharynx clear Neck- supple, no JVD Lungs- diminished BS Heart- regular rhythm; no murmur Abdomen- normal bowel sounds, soft, nontender Extremities- no calf tenderness, +edema Neuro- alert, oriented x 3; PERRL, EOMI; no facial palsy; no dysarthria Skin- warm & dry Results & Data Results & Data ([facility]) Vital Signs (Past 12 Hours) Vital Signs Temp Pulse Pulse Pulse Resp BP Pulse Ox 04/18/21 16:05 87 04/18/21 11:29 36.8 C 85 19 119/66 94 04/18/21 08:53 86 138/68 04/18/21 07:55 85 04/18/21 07:34 37.1 C 66 18 127/71 93 (1) COPD (chronic obstructive pulmonary disease) COPD type: emphysema Emphysema type: centrilobular Qualified Code(s): J43.2 - Centrilobular emphysema
[2021-04-18] MEDS ORDERED: FUROSEMIDE 20 MG TAB PO ONE (19:05)
[2021-04-19 07:34] LABS: Hematocrit (blood only) 36.1 % (42-52); Hemoglobin 11.7 g/dL (14.0-18.0); Mean Corpuscular Hemoglobin 30.2 pg (25-34); Mean Corpuscular Hgb Conc 32.4 g/dL (32-36); Mean Corpuscular Volume 93.3 fL (80-100); Mean Platelet Volume 9.8 fL (7.4-10.4); Platelet Count 207 K/uL (130-400); RDW Coefficient of Variation 14.1 % (11.5-14.5); RDW Standard Deviation 48.2 fL (36.4-46.3); Red Blood Count 3.87 M/uL (4.7-6.1); White Blood Count 13.11 K/uL (4.8-10.8)
[2021-04-19 07:50] LABS: INR 3.2 (0.9-1.1); Prothrombin Time 29.5 Seconds (9.0-12.0)
[2021-04-19] MEDS: AMOXICILLIN/CLAVULANATE 875 MG TAB PO SCH (08:59)
[2021-04-19] MEDS: ASPIRIN 81 MG ECTAB PO SCH (09:00)
[2021-04-19] MEDS: DOCUSATE SODIUM 100 MG CAP PO SCH ×2 (09:00→20:11)
[2021-04-19] MEDS: FAMOTIDINE 20 MG TAB PO SCH ×2 (09:00→20:11)
[2021-04-19] MEDS: AMIODARONE 200 MG TAB PO SCH (09:01)
[2021-04-19] MEDS: ATORVASTATIN 40 MG TAB PO SCH (09:02)
[2021-04-19] MEDS: METOPROLOL SUCC 25MG EXT REL TAB PO SCH (09:03)
[2021-04-19] MEDS ORDERED: VANCOMYCIN CONSULT ACTIVE PRN (11:06)
--- NOTE | 2021-04-19 11:46 | Pharmacy Report ---
Pharmacy Vanc AUC Short Note - Date of Service April 19, 2021 - Assessment & Plan Assessment 80 year old M receiving Vancomycin for treatment of complicated UTI. Pertinent microbiologic data includes: Urine culture is growing E. Faecium, which is sensitive to Dapto, Tetracycline, and Vancomycin. Ureteral stent placed 04/04. Patient has already completed a 7 day course of abx for aspiration pneumonia and proteus UTI. Plan Vancomycin * AUC/KARLA is the preferred PK/PD target for vancomycin * AUC guided dosing is effective and associated with decreased risk of nephrotoxicity compared to traditional trough targets * Vancomycin 1500mg x 1 followed by Vancomycin 1250mg IV Q24H predicts a Trough level of 16.4 mcg/mL is predicted to achieve target AUC/KARLA of 400-600 mg/L.hr and may be associated with a 12 % risk of nephrotoxicity * Trough level ordered for: 04/21/21 @ 1135 Pharmacy will continue to follow and will adjust dose/frequency as necessary. Thank you.
[2021-04-19] MEDS ORDERED: VANCOMYCIN HCL 1,500 MG in SODIUM CHLORIDE 0.9% 500 ML IV ONE (12:00)
[2021-04-19] MEDS: ACETAMINOPHEN 325 MG TAB PO PRN (15:45)
--- NOTE | 2021-04-19 23:31 | Hospitalist Progress Note ---
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 Sepsis Obstructive uropathy Complicated UTI CT abd/pelvis with 7 mm left UPJ calculus producing mild left-sided hydronephrosis with swelling of the left kidney and perinephric stranding present S/P Cystoscopy, Bilateral Retrogrades, Left Stent Insertion with Dr. Quiros. Urine culture is growing Proteus Mirabilis which is pansensitive We will continue current antibiotic-Zosyn to cover aspiration as well The antibiotic were changed to Unasyn to cover aspiration pneumonia as well Case discussed with urology again about the hematuria As per Urology, it was common to have hematuria after stent placement Continue palma catheter for now Will consider to do a voiding trial in am Urine cx on 04/17 grew gram positive cocci -Enterococcus faecalis Augmentin was discontinued and started on IV Vanco Might consider to change to doxycycline on discharge Possible aspiration pneumonia Chest x-ray did show new airspace opacities within the right mid to lower lung zone Antibiotic is changed to intravenous Zosyn Appreciate speech therapy input and recommendation Recommended alternate solids and liquid diet with aspiration precaution Zosyn has been changed to intravenous Unasyn and down the line oral Augmentin upon discharge Repeat CXR showed curvilinear lucency projecting over the right lower lung. Right basilar consolidation suggestive of pneumonia. Mild left basilar opacity. KUB showed no pneumoperitoneum identified. Findings on chest radiograph p erformed earlier today was artifactual. Clinically stable (4) COVID-19: Plan: COVID 19 Infection Covid was diagnosed on 04/04/2021-he will still need to be quarantined until 04/13/2021 Repeat CXR showed right basilar consolidation suggestive of pneumonia. Mild left basilar opacity. CXR showed decreased inspiratory effort with otherwise no acute chest disease. Completed the course of dexamethasone Continue incentive spirometry and flutter valve Saturating well on room air Clinically improves (5) Cerebrovascular disease: Plan: H/o CVA in September 2019. Continue aspirin (6) Paroxysmal A-fib: Plan: Continue amiodarone, Toprol Will resume coumadin since INR 3.2 Continue monitor PT/INR (7) Chronic diastolic (congestive) heart failure: Plan: Lasix on hold due to low BP No sign of fluid overload Continue monitor closely (8) COPD (chronic obstructive pulmonary disease): Plan: Stable Does not use home inhalers (9) BPH (benign prostatic hypertrophy): Plan: Continue doxazosin Ambulatory dysfunction Continue PT OT-appreciate input We will likely need rehab when medically stable DVT Px: Coumadin to hold since INR 3.2 Code status: FULL CODE PCP: Felix Admission and Anticipated Discharge Date Admission Date: April 04, 2021 Subjective Patient was seen and examined for follow-up of shortness of breath due to COVID- 19, hematuria and weakness Lying in bed with no acute respiratory distress Pt is doing much better Palma catheter continue to drained dark urine. Denies any chest pain, palpitation, dizziness, and fever. Review of Systems Review of Systems: All systems reviewed & are unremarkable except as noted in Subjective Physical Exam Physical Exam: General- No acute distress Head- atraumatic Eyes- PERRL, EOMI, ENT- oropharynx clear Neck- supple, no JVD Lungs- diminished BS Heart- regular rhythm; no murmur Abdomen- normal bowel sounds, soft, nontender Extremities- no calf tenderness, +edema Neuro- alert, oriented x 3; PERRL, EOMI; no facial palsy; no dysarthria Skin- warm & dry Results & Data Results & Data ([facility]) Vital Signs (Past 12 Hours) Vital Signs Temp Pulse Pulse Resp BP Pulse Ox 04/19/21 19:00 36.6 C 87 16 87/45 L 93 04/19/21 16:30 37.5 C 04/19/21 14:57 37.8 C H 86 20 137/72 90 04/19/21 14:20 91 H (1) COPD (chronic obstructive pulmonary disease) COPD type: emphysema Emphysema type: centrilobular Qualified Code(s): J43.2 - Centrilobular emphysema
[2021-04-19] MEDS ORDERED: WARFARIN SOD 2 MG TAB PO ONE (23:38)
[2021-04-20 06:35] LABS: Hematocrit (blood only) 32.4 % (42-52); Hemoglobin 10.6 g/dL (14.0-18.0); INR 2.7 (0.9-1.1); Mean Corpuscular Hemoglobin 30.5 pg (25-34); Mean Corpuscular Hgb Conc 32.7 g/dL (32-36); Mean Corpuscular Volume 93.4 fL (80-100); Mean Platelet Volume 9.6 fL (7.4-10.4); Platelet Count 210 K/uL (130-400); Prothrombin Time 25.3 Seconds (9.0-12.0); RDW Coefficient of Variation 14.4 % (11.5-14.5); RDW Standard Deviation 48.9 fL (36.4-46.3); Red Blood Count 3.47 M/uL (4.7-6.1); White Blood Count 10.23 K/uL (4.8-10.8)
[2021-04-20 06:44] LABS: Creatinine Clr Calc Pharmacy 53.4 ml/min; Est GFR (African American) 65.1 ml/min; Est GFR (Non-African American) 56.2 ml/min
[2021-04-20] MEDS: AMIODARONE 200 MG TAB PO SCH (08:31)
[2021-04-20] MEDS: METOPROLOL SUCC 25MG EXT REL TAB PO SCH (08:31)
[2021-04-20] MEDS: FAMOTIDINE 20 MG TAB PO SCH (08:33)
[2021-04-20] MEDS: DOCUSATE SODIUM 100 MG CAP PO SCH (08:33)
[2021-04-20] MEDS: ATORVASTATIN 40 MG TAB PO SCH (08:33)
[2021-04-20] MEDS: ASPIRIN 81 MG ECTAB PO SCH (08:33)
[2021-04-20] MEDS: FUROSEMIDE 20 MG TAB PO SCH (09:28)
[2021-04-20] MEDS ORDERED: VANCOMYCIN HCL 1,250 MG in SODIUM CHLORIDE 0.9% 250 ML IV SCH (12:00)
--- NOTE | 2021-04-20 12:29 | Discharge Summary ---
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 Staff at facility concerned for possible stroke due to increased drooling, weakness and fall yesterday. No focal weakness. Usually ambulates with walker. Fall without head trauma or LOC. History primarily obtained by ADELSO Ritchie (sister), who is at bedside. Patient is also endorsing left-sided flank and back pain with some dysuria and increased urinary urgency. No hematuria. Noted increased coughing but has chronic cough at baseline 2/2 COPD. No fever, chills, chest pain, shortness of breath, nausea, vomiting or diarrhea. Patient is on coumadin for history of paroxysmal A Fib and CVA. Admission Exam Per Admitting Provider General Appearance:Moderately built and nourished, no apparent distress Head: normocephalic, Atraumatic Eyes: normal inspection, EOMI Neck: supple, Trachea midline Respiratory/Chest: Decreased breath sounds, basal crackles Cardiovascular: Irregularly irregular, no murmur Abdomen/GI:Soft, left flank tender, Bowel sounds present Extremities/Musculoskeletal:normal inspection, Trace B/L LE edema Neurologic/Psych:AAOX3, grossly no focal neurological deficits Skin: normal color, warm Principal Diagnosis Sepsis Complicated Urinary Tract Infection Ureteral stone with hydronephrosis S/P cystoscopy and left stent insertion Discharge Exam Constitutional + well hydrated; no acute distress Eyes PERRL, conjunctivae normal, anicteric sclerae ENMT external ear and nose normal, oropharynx normal Respiratory normal respiratory effort, lungs clear to auscultation Cardiovascular Rate/Rhythm: regular rate and regular rhythm S1 S2 Gastrointestinal (Abdomen) normal bowel sounds, soft, nontender, no hepatosplenomegaly Neurologic PERRL, EOMI, accommodation nl, no face palsy, no dysarthria Psychiatric A+Ox3, euthymic affect Discharge Data Allergies Allergy/AdvReac Type Severity Reaction Status Date / Time guaifenesin AdvReac Unknown GETS Verified 04/04/21 10:18 REALLY SICK FROM MUCINEX Consultations 04/04/21 13:47 ED Decision to Admit Stat 04/04/21 16:02 Consult Urology Routine Procedures Performed Operation Date: 04/04/21 16:35 Actual Procedures p Cystoscopy, Bilateral Retrogrades, Left Stent Insertion(Left) - Yaya Quiros, Ordered Studies 04/04/21 09:59 CT head/brain wo con Stat 04/04/21 11:45 CT abd pelvis wo con Stat CT lumbar spine wo con Stat 04/04/21 15:30 FL retrograde includes kub Routine Hospital Course (1) Sepsis: (2) Ureteral stone with hydronephrosis: (3) Complicated UTI (urinary tract infection): 80yo M with a PMH of paroxysmal atrial fibrillation, 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 Sepsis Obstructive uropathy Complicated UTI CT abd/pelvis with 7 mm left UPJ calculus producing mild left-sided hydronephrosis with swelling of the left kidney and perinephric stranding present S/P Cystoscopy, Bilateral Retrogrades, Left Stent Insertion with Dr. Quiros. Urine culture is growing Proteus Mirabilis which is pansensitive Was treated with IV antibiotics Repeat Urine cx on 04/17/21 grew Enterococcus faecalis Antibiotics changed to vancomycin. Changed to doxycycline today to complete treatment based on sensitivities Possible aspiration pneumonia Chest x-ray at the time did show new airspace opacities within the right mid to lower lung zone Was evaluated by speech therapist who recommended alternate solids and liquid diet with aspiration precaution Zosyn has been changed to intravenous Unasyn and down the line oral Augmentin upon discharge Aspiration precautions (4) COVID-19: COVID 19 Infection Covid was diagnosed on 04/04/2021-he will still need to be quarantined until 04/13/2021 Repeat CXR showed right basilar consolidation suggestive of pneumonia. Mild left basilar opacity. CXR showed decreased inspiratory effort with otherwise no acute chest disease. Completed the course of dexamethasone Required nasal oxygen and successfully weaned off Currently on room air (5) Cerebrovascular disease: H/o CVA in September 2019. Continue aspirin (6) Paroxysmal A-fib: Continue amiodarone, Toprol Warfarin reduced to 2mg daily due to supratherapeutic INR INR is 2.7 today Monitor INR at SNF and patient to follow up with anticoagulation clinic (7) Chronic diastolic (congestive) heart failure: Continue home lasix (8) COPD (chronic obstructive pulmonary disease): Stable Does not use home inhalers (9) BPH (benign prostatic hypertrophy): Continue doxazosin Discharged to SNF Total Time Total Time Spent Total Time Spent (In Minutes): 45 Total Time Includes: Examination of the Patient, Discharge Planning and Medication Reconciliation Discharge Plan Discharge Items Patient Disposition: Transfer Longterm Fac Reason For Visit: COMPLICATED UTI 2/2 URETERAL STONE WITH HYDRO, COV Discharge Diagnosis: Sepsis Complicated Urinary Tract Infection Ureteral stone with hydronephrosis S/P cystoscopy and left stent insertion Condition on Discharge: Fair Activity: Resume your previous activity Non-emergency contact: Primary Care Provider and Urologist Call non-emergency contact if: you have any medication questions and your symptoms worsen Follow-up/Referrals: JENNIFER VILLARREAL [Primary Care Provider] - Diet: Heart Healthy Ambulatory Orders: Prothrombin Time INR (Timed) Timeframe: 2 Days Location: Determined by Patient Ordered By: Ann Rai Attending Provider Instructions: Mr Hernandez. You came to the hospital for weakness and flank pain You were evaluated and found to have sepsis from complicated urinary tract infection. Abdominal CT showed left kidney stone with mild obstruction. You were evaluated by Urology and had cystoscopy with stent placement. You are being discharged to long term facility. Please continue oral antibiotics to complete treatment. It is important you follow up with urology outpatient. Your lisinopril is currently stopped due to low blood pressure. May be resumed in the future if blood pressure is persistently elevated Please ensure follow up with your Primary Doctor Your warfarin was reduced to 2mg daily. Please ensure monitoring of your INR at nursing facility and follow up with anticoagulation clinic. It was a pleasure taking care of you. Pending Studies at Discharge: No Stand-Alone Forms: My [facility] [employer] Skilled Items Patient informed of condition?: Yes DNR: No Discharge Level of Care: Skilled Communicable Disease: No Discharge Prognosis: Stable Lines: None Urinary Catheter: No Medications and DC Order Prescriptions: New warfarin 2 mg tablet 2 mg PO DAILY Qty: 30 RF: 0 doxycycline hyclate 100 mg tablet 100 mg PO BID 8 Days Qty: 16 RF: 0 Continued nystatin 100,000 unit/gram Powder 1 applic TOPICAL BID PRN (Reason: Skin Irritation) RF: 0 atorvastatin 40 mg tablet 40 mg PO DAILY Qty: 30 RF: 0 acetaminophen 325 mg Tablet 650 mg PO QID PRN (Reason: Pain) Qty: 50 RF: 0 doxazosin 1 mg Tablet 1 mg PO QPM Qty: 30 RF: 0 amiodarone 200 mg tablet 200 mg PO QAM Qty: 30 RF: 0 aspirin 81 mg Tablet,Delayed Release (Dr/Ec) 81 mg PO DAILY Qty: 30 RF: 0 famotidine 20 mg tablet 20 mg PO BID Qty: 60 RF: 0 furosemide 20 mg tablet 20 mg PO MOWEFR@0900 Qty: 20 RF: 0 metoprolol succinate 25 mg Tablet Extended Release 24 Hr 12.5 mg PO QAM Qty: 30 RF: 0 polyethylene glycol 3350 [Miralax] 17 gram/dose Powder 17 g PO QDL PRN (Reason: Constipation) Qty: 10 RF: 0 docusate sodium 100 mg Tablet 100 mg PO BID Qty: 60 RF: 0 Discontinued magnesium oxide 400 mg magnesium tablet 400 mg PO BID RF: 0 lisinopril 10 mg tablet 10 mg PO QAM RF: 0 risperidone 0.5 mg tablet 0.5 mg PO BID RF: 0 warfarin 3 mg tablet 3 mg PO DAILY RF: 0 Discharge Orders: Discharge Order (Routine); Ordered 04/20/21 Ordered By: Ann Carter/Other Patient Handouts: Hematuria: Possible Causes, ED Bladder Infection, Male (Adult) Admission Data Admit Date/Time: 04/04/21 14:14 Attending Provider: Ann Handy I. Admit Provider: Cecilio Elizabeth Primary Care Provider: JENNIFER VILLARREAL Other Providers: Cecilio Elizabeth ; Yaya Quiros ; Victoria Atkins [facility] ; [facility] ; [place] ; Yue Addison ; Hilton Parks Other Interventions: Discharge Summary Assessment (RN) Last Done: 04/20/21 12:40
[2021-04-21] MEDS ORDERED: VANCOMYCIN TROUGH ONE (11:30)
== END 2021-04-20 13:34 | DRG 853 ==
LOC: ED 09:40 → 2E 14:14 → SUATTDRO 14:14 → 2E 14:52

== ENCOUNTER 2021-08-26 15:29 | Inpatient (IN) ==
[2021-08-26] MEDS ORDERED: SODIUM CHLORIDE 0.9% 500 ML IV STA (15:44)
[2021-08-26] MEDS ORDERED: SODIUM CHLORIDE 0.9% 1000ML 1,000 ML IV ONE (16:23)
--- NOTE | 2021-08-26 17:05 | XRay Report ---
XR chest 1V portable CLINICAL HISTORY: weakness. Evaluate cardiopulmonary status COMPARISON STUDY: 04/13/2021 TECHNIQUE: 1 view of the chest FINDINGS: Single frontal view of the chest demonstrates the heart to again be enlarged status post previous car diothoracic surgery. There is evidence for underlying COPD with interval development of diffuse hazy soft tissue density superimposed over the right mid to lower lung when compared to left. Is possible this represents a posterior infiltrate or pleural fluid layering along the posterior gutter. Follow-u p lateral radiographs are recommended. The left hemithorax is clear. There is no evidence for left pleural effusion. There is no evidence fo r vascular congestion. There is no acute osseous pathology. IMPRESSION: 1. Evidence for COPD with interval development of hazy soft tissue density superimposed over the mid to lower right lung. 2. Differential includes posterior infiltrate versus pleural fluid layering along the posterior gutte r. PA and lateral radiographs are recommended for further evaluation. ACT 112: Negative or not required by law. Electronically signed by: Tripp Tse M.D. 08/26/2021 5:02 PM
[2021-08-26 17:14] LABS: Basophils # (auto) 0.01 K/uL (0-0.2); Basophils % (auto) 0.1 %; Hematocrit (blood only) 34.7 % (42-52); Hemoglobin 11.2 g/dL (14.0-18.0); Immature Granulocytes # (auto) 0.02 K/uL (0.00-0.02); Immature Granulocytes % (auto) 0.2 %; Lymphocytes # (auto) 0.68 K/uL (1.2-3.4); Lymphocytes % (auto) 5.7 %; Mean Corpuscular Hemoglobin 28.5 pg (25-34); Mean Corpuscular Hgb Conc 32.3 g/dL (32-36); Mean Corpuscular Volume 88.3 fL (80-100); Mean Platelet Volume 9.9 fL (7.4-10.4); Monocytes # (auto) 0.81 K/uL (0.11-0.59); Monocytes % (auto) 6.8 %; Neutrophils # (auto) 10.33 K/uL (1.4-6.5); Neutrophils % (auto) 87.2 %; Platelet Count 166 K/uL (130-400); RDW Coefficient of Variation 16.7 % (11.5-14.5); RDW Standard Deviation 54.4 fL (36.4-46.3); Red Blood Count 3.93 M/uL (4.7-6.1); White Blood Count 11.85 K/uL (4.8-10.8)
--- NOTE | 2021-08-26 17:23 | Emergency Department Note ---
Impression & Plan Hypotension, MARLENA (acute kidney injury), Hypoxia, Pneumonia ED Provider Note NAME: CATIA WOODWARD JR AGE: 81 SEX: M : 1940 ARRIVES VIA: Ambulance INFORMANT: [Patient][nursing] ED PROVIDER(S): [Robert Whitfield MD] CHIEF COMPLAINT: Hypotension, confusion HISTORY OF PRESENT ILLNESS: The patient is an 81-year-old male who recently had a left ureteral stent exchanged. He has a [place] catheter. The patient presents with confusion, hypotension and hypoxia. Blood pressure was 60/40 prior to arrival. He did receive 1 L of fluid on the way here. The patient currently has no complaints other than a dry mouth. He states he has chronic lower back pain but this is not changed. He has no abdominal pain or chest pain. He does not currently feel short of breath. He admits he does not typically wear oxygen. The patient has noticed an increased cough lately. He states he has a history of heavy smoking use. Of note, the patient is a DNR. REVIEW OF SYSTEMS: See HPI for pertinent positives and negatives. A total of ten systems were reviewed and were otherwise negative. PMHx/PSHx: See Below SOCIAL HISTORY: See Below. PHYSICAL EXAM: GENERAL: Patient is in no acute distress. Quite frail. HEENT: No acute trauma, normocephalic atraumatic, mucous membranes dry, no nasal congestion, no scleral icterus. NECK: No stridor, no adenopathy, no meningismus, trachea is midline. LUNGS: Clear to auscultation when listening anterior. No respiratory distress. Dry cough noted. Breath sounds are equal. HEART: Without murmurs gallops or rubs, regular rate and rhythm. ABDOMEN: Soft, nontender, bowel sounds positive, no peritonitis. EXTREMITIES: No cyanosis or edema, chronic skin change noted, full range of motion of all the joints without pain or difficulty, no signs for acute trauma. NEUROLOGIC: Oriented x 3, no acute motor or sensory deficits, no focal weakness. SKIN: No rash, no jaundice, no diaphoresis. Groin: No erythema. A [place] catheter is in place. DIFFERENTIAL DIAGNOSIS: Infection, dehydration, sepsis, hydronephrosis, pneumonia, metabolic abnormality, hypo/hyperglycemia, electrolyte disturbance, anemia, hypoxia, cardiac sources, intracerebral event, toxicologic issues, stroke, TIA, as well as other pathologies. EMERGENCY DEPARTMENT COURSE/PROCEDURES: ECG: Indication was weakness and hypotension. The ECG shows atrial fibrillation with a rapid ventricular response. The rate is 109. There is no ST elevation. There is diffuse nonspecific ST change. QTC is 444. Compared to an ECG from 05 April 2021, A. fib now seems present. Continuous Cardiac Monitoring: An order was placed for continuous cardiac monitoring. The monitor shows a rate of 102 with atrial fibrillation. Critical Care Note: I have personally spent 54 minutes of critical care time in the direct management of this patient. This includes bedside care, interpretation of diagnostic studies, and testing, discussion with consultants, patient, and family members, and other required patient management activities. This 54 minutes is in excess of all separately billable procedures. MEDICAL DECISION MAKING: There is a mild leukocytosis which could be consistent with infection. A mild anemia was noted with a hemoglobin of 11.2. The anemia was baseline looking back at previous testing. There was a normal platelet count. INR was therapeutic for someone using Coumadin. Creatinine was elevated higher than baseline consistent with some dehydration and acute kidney injury. Lactic acid level was elevated at over 3, this could be consistent with dehydration and or infection. Magnesium is low 1.4. No worrisome liver enzyme elevation. No evidence for pancreatitis. The patient appeared to be in a euthyroid state. Urinalysis returned consistent with possible infection. COVID, RSV and influenza testing returned negative. Chest x-ray shows a right-sided pneumonia. Abdominal and pelvis CT does not show hydronephrosis or any acute surgical process. The left ureteral stent was in position. ECG shows A. fib without acute ischemia. Cardiac enzyme testing x1 is not consistent with acute cardiac injury. On exam, the patient appeared dehydrated. He was hypoxic requiring oxygen. He was hypotensive but his blood pressure had improved markedly with the 1 L of fluid given prior to arrival. The patient received an additional 2 L of IV saline. He received a DuoNeb and IV cefepime. He was given IV magnesium. I talked to the patient and his family. He appears to have pneumonia. This explains the hypoxia. I suspect the confusion earlier was from his hypotension. Now that his blood pressure is improved, his mentation has cleared. The patient is in need of a hospital stay. He requires hydration, antibiotic coverage, observation/care. I did speak with case management, the on-call hospitalist was consulted. Past Med/Surg History Medical History A-fib On Coumadin Anxiety Aortic aneurysm S/p thoracic aneurysm repair 2016 Per 04/04/21 abdomen/pelvis CT " There is no evidence for focal aneurysmal dilatation of the abdominal aorta. 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 per 04/20/21 discharge summary On ASA and Coumadin History of TIA prior to CVA Chronic diastolic (congestive) heart failure EF 55-60% Chronic kidney disease stage 3 COPD (chronic obstructive pulmonary disease) Dyslipidemia GERD (gastroesophageal reflux disease) History of basal cell carcinoma of skin History of COVID-19 04/04/21 per records History of sepsis Admitted Apr 2021 - dx'ed with complicated UTI and sepsis History of squamous cell carcinoma of skin HTN (hypertension) Impaired gait and mobility MRSA nasal colonization Neuropathy Pneumonia History of Covid pneumonia- dx'ed Mar/Apr 2021- treated with steroids Venous insufficiency Surgical History H/O arthroscopic knee surgery H/O thoracic aortic aneurysm repair History of aortic valve [place] 11/22/2015 - [place] [place] No mention of AVR in recent cardio records History of cataract surgery bilateral History of cystoscopy (04/04/21) with retrograde and left uretral stent placed and stent exchanges Knee joint replacement status Right S/P CABG x 1 Family History Other Diabetes Hypertension Social History Smoking Status: Never smoker Tobacco Type: Cigarettes Cigarettes Per Day: Former smoker; Second Hand Exposure: No; Hx Alcohol Use: Yes Alcohol type: beer and wine Hx Substance Use: No Preferred Language: Tunisian Communication Ability: Effective Visual Impairment: Limited Hearing Ability: Hard of Hearing Supervisor Speech Required: No Beliefs That Will Affect Care: None marital status: Unknown Current Living Situation: Retirement Current Living Situation Comment: [facility] current occupational status: retired How many Children do You have: 2 Feels Safe at Home: Yes Allergies Allergies Allergy/AdvReac Type Severity Reaction Status Date / Time guaifenesin AdvReac Intermediate GETS Verified 08/25/21 08:11 REALLY SICK FROM MUCINEX Home Meds Home Medications Medication Instructions Recorded Confirmed bisacodyl 10 mg rectal suppository 10 mg GA UD PRN 05/18/21 08/26/21 (Dulcolax (bisacodyl)) magnesium hydroxide 400 mg/5 mL 30 ml PO DAILY PRN 05/18/21 08/26/21 oral suspension (Milk of Magnesia) multivitamin 1 tab PO QPM 05/18/21 08/26/21 acetaminophen 325 mg tablet 650 mg PO Q6 PRN 08/23/21 08/26/21 acetaminophen 325 mg tablet 650 mg PO Q8 PRN 08/23/21 08/26/21 atorvastatin 40 mg tablet 40 mg PO QPM 08/23/21 08/26/21 benzonatate 100 mg capsule 100 mg PO TID 08/23/21 08/26/21 bupropion HCl 150 mg 24 hr tablet, 150 mg PO QAM 08/23/21 08/26/21 extended release (Wellbutrin XL) polyethylene glycol 3350 17 17 g PO DAILY 08/23/21 08/26/21 gram/dose oral powder (Miralax) sodium phosphates 19 gram-7 118 ml GA DAILY PRN 08/23/21 08/26/21 gram/118 mL enema (Fleet Enema) Previous Rx's Medication Instructions Recorded amiodarone 200 mg tablet 200 mg PO QAM #30 tab 04/20/21 aspirin 81 mg tablet,delayed 81 mg PO DAILY #30 tab 04/20/21 release docusate sodium 100 mg tablet 100 mg PO BID #60 tab 04/20/21 doxazosin 1 mg tablet 1 mg PO QPM #30 tab 04/20/21 famotidine 20 mg tablet 20 mg PO BID #60 tab 04/20/21 furosemide 20 mg tablet 20 mg PO MOWEFR@0900 #20 tab 04/20/21 metoprolol succinate 25 mg 12.5 mg PO QAM #30 tab 04/20/21 tablet,extended release 24 hr tamsulosin 0.4 mg capsule 0.4 mg PO HS #30 cap 05/23/21 cephalexin 500 mg capsule 500 mg PO BID 3 Days #6 cap 08/25/21 phenazopyridine 200 mg tablet 200 mg PO Q8H PRN #10 tab 08/25/21 (Pyridium) Results & Data (ED) Vital Signs Vital Signs - 24 hr 08/26/21 15:45 08/26/21 16:39 08/26/21 17:50 Temperature 36.5 C Temperature Source Oral Pulse Rate 102 H Pulse Rate [Left Finger] 94 H Pulse Rhythm Regular Pulse Rhythm [Left Finger] Regular Pulse Strength Normal Pulse Strength [Left Finger] Normal Respiratory Rate 22 20 Respiratory Effort / Characteristics Non-Labored Spontaneous Respiratory Depth Normal Respiratory Pattern Regular Blood Pressure 96/50 L Blood Pressure [Right Arm] 100/72 Blood Pressure Mean 65 Blood Pressure Mean [Right Arm] 81 Blood Pressure Position Lying Blood Pressure Position [Right Arm] Lying Pulse Oximetry 91 96 96 Oxygen Delivery Method Room Air Nasal Cannula Nasal Cannula Oxygen Flow Rate 2 2 Sepsis Recent Fever Within 48 Hours No Sepsis New/Unexplained Change in Mental Status No Sepsis Action Taken by Nursing No Action Required 08/26/21 18:35 Temperature Temperature Source Pulse Rate Pulse Rate [Left Finger] 92 H Pulse Rhythm Pulse Rhythm [Left Finger] Pulse Strength Pulse Strength [Left Finger] Respiratory Rate 22 Respiratory Effort / Characteristics Respiratory Depth Respiratory Pattern Blood Pressure Blood Pressure [Right Arm] 94/61 L Blood Pressure Mean Blood Pressure Mean [Right Arm] 72 Blood Pressure Position Blood Pressure Position [Right Arm] Lying Pulse Oximetry 94 Oxygen Delivery Method Nasal Cannula Oxygen Flow Rate 2 Sepsis Recent Fever Within 48 Hours Sepsis New/Unexplained Change in Mental Status Sepsis Action Taken by Retirement Medications Current Medication List: was personally reviewed by me Laboratory Data Attestation: I reviewed the patient's lab results. Result diagrams: 08/26/21 16:35 08/26/21 16:35 Lab Results 08/26/21 08/26/21 08/26/21 Range/Units 16:35 16:35 16:35 WBC 11.85 H (4.8-10.8) K/uL RBC 3.93 L (4.7-6.1) M/uL Hgb 11.2 L (14.0-18.0) g/dL Hct 34.7 L (42-52) % MCV 88.3 (80-100) fL MCH 28.5 (25-34) pg MCHC 32.3 (32-36) g/dL RDW Std Deviation 54.4 H (36.4-46.3) fL RDW Coeff of Trinh 16.7 H (11.5-14.5) % Plt Count 166 (130-400) K/uL MPV 9.9 (7.4-10.4) fL Immature Gran % (Auto) 0.2 % Neut % (Auto) 87.2 % Lymph % (Auto) 5.7 % [place] % (Auto) 6.8 % Eos % (Auto) 0.0 % Baso % (Auto) 0.1 % Neut # (Auto) 10.33 H (1.4-6.5) K/uL Lymph # (Auto) 0.68 L (1.2-3.4) K/uL [place] # (Auto) 0.81 H (0.11-0.59) K/uL Eos # (Auto) 0.00 (0-0.5) K/uL Baso # (Auto) 0.01 (0-0.2) K/uL Immature Gran # (Auto) 0.02 (0.00-0.02) K/uL PT 21.4 H (9.0-12.0) Seconds INR 2.1 H (0.9-1.1) APTT 30.9 (21.0-31.0) Seconds PTT Ratio 1.1 Sodium 143 (136-145) mmol/L Potassium 4.1 (3.5-5.1) mmol/L Chloride 114 H (98-107) mmol/L Carbon Dioxide 24 (21-32) mmol/L Anion Gap 5 (3-11) BUN 33 H (6-23) mg/dl Creatinine 2.06 H (0.6-1.4) mg/dl Est Cr Clr Drug Dosing 26.3 ml/min Est GFR ( Amer) 34.0 ml/min Est GFR (Non-Af Amer) 29.3 ml/min BUN/Creatinine Ratio 16.0 (10-20) Glucose 79 (70-99(Fasting)) mg/dl Lactate (0.4-2.0) mmol/L Calcium 6.9 L (8.5-10.1) mg/dl Magnesium (1.7-2.4) mg/dl Total Bilirubin 0.9 (0.2-1.0) mg/dl AST 38 (13-39) U/L ALT 36 (7-52) U/L Alkaline Phosphatase 68 (34-104) U/L Troponin I High Sens (0-20) pg/ml Total Protein 4.6 L (6.0-8.3) gm/dl Albumin 2.1 L (3.4-5.0) gm/dl Globulin 2.5 (2.5-4.0) gm/dl Albumin/Globulin Ratio 0.8 L (0.9-2) Lipase 24 (11-82) U/L Procalcitonin (0-0.5) ng/ml TSH (0.300-4.500) uIu/ml Urine Color Urine Appearance (Clear) Urine pH (4.5-7.5) Ur Specific [place] (1.000-1.030) Urine Protein (Negative) Urine Glucose (UA) (Negative) Urine Ketones (Negative) Urine Blood (Negative) Urine Nitrite (Negative) Urine Bilirubin (Negative) Urine Urobilinogen (Negative) Ur Leukocyte Esterase (Negative) SARS-CoV-2 (PCR) (Negative) Influenza Type A (PCR) (Neg) Influenza Type B (PCR) (Neg) RSV (RT-PCR) (Neg) 08/26/21 08/26/21 08/26/21 Range/Units 16:35 16:35 16:35 WBC (4.8-10.8) K/uL RBC (4.7-6.1) M/uL Hgb (14.0-18.0) g/dL Hct (42-52) % MCV (80-100) fL MCH (25-34) pg MCHC (32-36) g/dL RDW Std Deviation (36.4-46.3) fL RDW Coeff of Trinh (11.5-14.5) % Plt Count (130-400) K/uL MPV (7.4-10.4) fL Immature Gran % (Auto) % Neut % (Auto) % Lymph % (Auto) % [place] % (Auto) % Eos % (Auto) % Baso % (Auto) % Neut # (Auto) (1.4-6.5) K/uL Lymph # (Auto) (1.2-3.4) K/uL [place] # (Auto) (0.11-0.59) K/uL Eos # (Auto) (0-0.5) K/uL Baso # (Auto) (0-0.2) K/uL Immature Gran # (Auto) (0.00-0.02) K/uL PT (9.0-12.0) Seconds INR (0.9-1.1) APTT (21.0-31.0) Seconds PTT Ratio Sodium (136-145) mmol/L Potassium (3.5-5.1) mmol/L Chloride (98-107) mmol/L Carbon Dioxide (21-32) mmol/L Anion Gap (3-11) BUN (6-23) mg/dl Creatinine (0.6-1.4) mg/dl Est Cr Clr Drug Dosing ml/min Est GFR ( Amer) ml/min Est GFR (Non-Af Amer) ml/min BUN/Creatinine Ratio (10-20) Glucose (70-99(Fasting)) mg/dl Lactate 3.2 H* (0.4-2.0) mmol/L Calcium (8.5-10.1) mg/dl Magnesium 1.4 L (1.7-2.4) mg/dl Total Bilirubin (0.2-1.0) mg/dl AST (13-39) U/L ALT (7-52) U/L Alkaline Phosphatase (34-104) U/L Troponin I High Sens 7.6 (0-20) pg/ml Total Protein (6.0-8.3) gm/dl Albumin (3.4-5.0) gm/dl Globulin (2.5-4.0) gm/dl Albumin/Globulin Ratio (0.9-2) Lipase (11-82) U/L Procalcitonin (0-0.5) ng/ml TSH 1.040 (0.300-4.500) uIu/ml Urine Color Urine Appearance (Clear) Urine pH (4.5-7.5) Ur Specific [place] (1.000-1.030) Urine Protein (Negative) Urine Glucose (UA) (Negative) Urine Ketones (Negative) Urine Blood (Negative) Urine Nitrite (Negative) Urine Bilirubin (Negative) Urine Urobilinogen (Negative) Ur Leukocyte Esterase (Negative) SARS-CoV-2 (PCR) (Negative) Influenza Type A (PCR) (Neg) Influenza Type B (PCR) (Neg) RSV (RT-PCR) (Neg) 08/26/21 08/26/21 08/26/21 Range/Units 16:35 16:36 18:00 WBC (4.8-10.8) K/uL RBC (4.7-6.1) M/uL Hgb (14.0-18.0) g/dL Hct (42-52) % MCV (80-100) fL MCH (25-34) pg MCHC (32-36) g/dL RDW Std Deviation (36.4-46.3) fL RDW Coeff of Trinh (11.5-14.5) % Plt Count (130-400) K/uL MPV (7.4-10.4) fL Immature Gran % (Auto) % Neut % (Auto) % Lymph % (Auto) % [place] % (Auto) % Eos % (Auto) % Baso % (Auto) % Neut # (Auto) (1.4-6.5) K/uL Lymph # (Auto) (1.2-3.4) K/uL [place] # (Auto) (0.11-0.59) K/uL Eos # (Auto) (0-0.5) K/uL Baso # (Auto) (0-0.2) K/uL Immature Gran # (Auto) (0.00-0.02) K/uL PT (9.0-12.0) Seconds INR (0.9-1.1) APTT (21.0-31.0) Seconds PTT Ratio Sodium (136-145) mmol/L Potassium (3.5-5.1) mmol/L Chloride (98-107) mmol/L Carbon Dioxide (21-32) mmol/L Anion Gap (3-11) BUN (6-23) mg/dl Creatinine (0.6-1.4) mg/dl Est Cr Clr Drug Dosing ml/min Est GFR ( Amer) ml/min Est GFR (Non-Af Amer) ml/min BUN/Creatinine Ratio (10-20) Glucose (70-99(Fasting)) mg/dl Lactate (0.4-2.0) mmol/L Calcium (8.5-10.1) mg/dl Magnesium (1.7-2.4) mg/dl Total Bilirubin (0.2-1.0) mg/dl AST (13-39) U/L ALT (7-52) U/L Alkaline Phosphatase (34-104) U/L Troponin I High Sens (0-20) pg/ml Total Protein (6.0-8.3) gm/dl Albumin (3.4-5.0) gm/dl Globulin (2.5-4.0) gm/dl Albumin/Globulin Ratio (0.9-2) Lipase (11-82) U/L Procalcitonin 0.75 H (0-0.5) ng/ml TSH (0.300-4.500) uIu/ml Urine Color Brown Urine Appearance Cloudy A (Clear) Urine pH 6.0 (4.5-7.5) Ur Specific [place] >= 1.030 (1.000-1.030) Urine Protein 3+ H (Negative) Urine Glucose (UA) Negative (Negative) Urine Ketones 1+ H (Negative) Urine Blood 3+ H (Negative) Urine Nitrite Negative (Negative) Urine Bilirubin 3+ H (Negative) Urine Urobilinogen Negative (Negative) Ur Leukocyte Esterase 3+ H (Negative) SARS-CoV-2 (PCR) NEGATIVE (Negative) Influenza Type A (PCR) Negative (Neg) Influenza Type B (PCR) Negative (Neg) RSV (RT-PCR) Negative (Neg) 08/26/21 Range/Units 18:50 WBC (4.8-10.8) K/uL RBC (4.7-6.1) M/uL Hgb (14.0-18.0) g/dL Hct (42-52) % MCV (80-100) fL MCH (25-34) pg MCHC (32-36) g/dL RDW Std Deviation (36.4-46.3) fL RDW Coeff of Trinh (11.5-14.5) % Plt Count (130-400) K/uL MPV (7.4-10.4) fL Immature Gran % (Auto) % Neut % (Auto) % Lymph % (Auto) % [place] % (Auto) % Eos % (Auto) % Baso % (Auto) % Neut # (Auto) (1.4-6.5) K/uL Lymph # (Auto) (1.2-3.4) K/uL [place] # (Auto) (0.11-0.59) K/uL Eos # (Auto) (0-0.5) K/uL Baso # (Auto) (0-0.2) K/uL Immature Gran # (Auto) (0.00-0.02) K/uL PT (9.0-12.0) Seconds INR (0.9-1.1) APTT (21.0-31.0) Seconds PTT Ratio Sodium (136-145) mmol/L Potassium (3.5-5.1) mmol/L Chloride (98-107) mmol/L Carbon Dioxide (21-32) mmol/L Anion Gap (3-11) BUN (6-23) mg/dl Creatinine (0.6-1.4) mg/dl Est Cr Clr Drug Dosing ml/min Est GFR ( Amer) ml/min Est GFR (Non-Af Amer) ml/min BUN/Creatinine Ratio (10-20) Glucose (70-99(Fasting)) mg/dl Lactate 3.6 H* (0.4-2.0) mmol/L Calcium (8.5-10.1) mg/dl Magnesium (1.7-2.4) mg/dl Total Bilirubin (0.2-1.0) mg/dl AST (13-39) U/L ALT (7-52) U/L Alkaline Phosphatase (34-104) U/L Troponin I High Sens (0-20) pg/ml Total Protein (6.0-8.3) gm/dl Albumin (3.4-5.0) gm/dl Globulin (2.5-4.0) gm/dl Albumin/Globulin Ratio (0.9-2) Lipase (11-82) U/L Procalcitonin (0-0.5) ng/ml TSH (0.300-4.500) uIu/ml Urine Color Urine Appearance (Clear) Urine pH (4.5-7.5) Ur Specific [place] (1.000-1.030) Urine Protein (Negative) Urine Glucose (UA) (Negative) Urine Ketones (Negative) Urine Blood (Negative) Urine Nitrite (Negative) Urine Bilirubin (Negative) Urine Urobilinogen (Negative) Ur Leukocyte Esterase (Negative) SARS-CoV-2 (PCR) (Negative) Influenza Type A (PCR) (Neg) Influenza Type B (PCR) (Neg) RSV (RT-PCR) (Neg) Administered Medications Discontinued Medications Albuterol (Albut/Ipratrop 3mg/0.5mg Neb 3 Ml Vial) 3 ml NEB NOW STA; Protocol Stop: 08/26/21 18:26 Last Admin: 08/26/21 18:29 Dose: 3 ml Documented by: [id number] Sodium Chloride (Nss) 500 mls @ 999 mls/hr IV .Q31M STA Stop: 08/26/21 16:14 Last Admin: 08/26/21 16:00 Dose: Not Given Documented by: [id number] Sodium Chloride (Nss 1000ml) 1,000 mls @ 999 mls/hr IV .Q1H1M ONE Stop: 08/26/21 17:23 Last Infusion: 08/26/21 17:56 Dose: 0 mls/hr Documented by: [id number] Admin: 08/26/21 16:30 Dose: 999 mls/hr Documented by: [id number] Sodium Chloride (Nss 1000ml) 500 mls @ 999 mls/hr IV .Q31M ONE Stop: 08/26/21 18:36 Last Infusion: 08/26/21 18:59 Dose: 0 mls/hr Documented by: [id number] Admin: 08/26/21 18:17 Dose: 999 mls/hr Documented by: [id number] Magnesium Sulfate/Dextrose (Magnesium Sulfate / D5w) 1 gm in 100 mls @ 100 mls/hr IV NOW STA Stop: 08/26/21 19:06 Last Infusion: 08/26/21 18:58 Dose: 0 mls/hr Documented by: [id number] Admin: 08/26/21 18:17 Dose: 100 mls/hr Documented by: [id number] Cefepime HCl (Maxipime) 2,000 mg in 20 mls @ 5 mls/min IV NOW STA; Protocol Stop: 08/26/21 18:26 Last Admin: 08/26/21 18:29 Dose: 5 mls/min Documented by: [id number] Imaging Data Radiologist's Impression: Abdomen/Pelvis CT 08/26/21 16:23 CT abd pelvis wo con CLINICAL HISTORY: poss hydro TECHNIQUE: Helical axial images of the abdomen and pelvis were obtained. Automated dose lowering techniques and/or adjustment according to patient size were utilized for this exam. This exam was performed without intravenous contrast. CT DOSE: 288.29 mGy.cm COMPARISON: Comparison is made to CT abdomen pelvis 01/02/2022 FINDINGS: Lower chest: There is a possible right pleural effusion and opacity in the right lower lobe. Biatrial enlargement is noted. Liver: Unremarkable. No focal lesions are seen. Gallbladder and biliary tree: Prominent gallbladder without evidence of cholelithiasis or cholecystitis. No intra- or extrahepatic biliary ductal dilation. Pancreas: Unremarkable, no focal lesions. Spleen: Unremarkable. Adrenals: Unremarkable. Kidneys and ureters: A left ureteric stent is noted. Bladder: A focus of gas is noted in the bladder. Reproductive organs: Unremarkable. Bowel: A hiatal hernia is seen. A duodenal diverticulum is incidentally noted. Lymph nodes Retroperitoneal: Unremarkable. Mesenteric: Unremarkable. Pelvic: Unremarkable. Peritoneum: Normal. Vessels: Extensive atherosclerotic calcifications are seen. Abdominal wall: Unremarkable. Bones: Degenerative changes in the visualized spine. IMPRESSION: 1. No evidence of nephrolithiasis. A left nephroureteral stent is in place. 2. Airspace opacities in the right lower lung may represent atelectasis, pneumo shannon, and/or aspiration. Underlying effusion cannot be excluded. 3. Extensive atherosclerotic disease. 4. Additional findings as above. ACT 112: Negative or not required by law. Electronically signed by: Vargas Sanchez M.D. 08/26/2021 6:34 PM Chest X-Ray 08/26/21 16:25 XR chest 1V portable CLINICAL HISTORY: weakness. Evaluate cardiopulmonary status COMPARISON STUDY: 04/13/2021 TECHNIQUE: 1 view of the chest FINDINGS: Single frontal view of the chest demonstrates the heart to again be enlarged sta tus post previous cardiothoracic surgery. There is evidence for underlying COPD with interval development of diffuse hazy soft tissue density superimposed over the right mid to lower lung when compared to left. Is possible this represents a posterior infiltrate or pleural fluid layering along the posterior gutter. Follow-up lateral radiographs are recommended. The left hemithorax is clear. There is no evidence for left pleural effusion. There is no evidence for vascular congestion. There is no acute osseous pathology. IMPRESSION: 1. Evidence for COPD with interval development of hazy soft tissue density superimposed over the mid to lower right lung. 2. Differential includes posterior infiltrate versus pleural fluid layering along the posterior gutter. PA and lateral radiographs are recommended for further evaluation. ACT 112: Negative or not required by law. Electronically signed by: Tripp Tse M.D. 08/26/2021 5:02 PM Discharge Plan Visit Data Chief Complaint: Hematuria Stated Complaint: AMS ED Provider: [facility] Discharge Problem: Hypotension, MARLENA (acute kidney injury), Hypoxia, Pneumonia Patient Disposition: Admitted As Inpatient Condition: Fair Forms Stand Alone Forms: [facility] Prescriptions Prescriptions: No Action multivitamin Tablet 1 tab PO QPM RF: 0 magnesium hydroxide [Milk of Magnesia] 400 mg/5 mL Suspension 30 ml PO DAILY PRN (Reason: Constipation) RF: 0 bisacodyl [Dulcolax (bisacodyl)] 10 mg Suppository 10 mg GA UD PRN (Reason: Constipation) RF: 0 tamsulosin 0.4 mg capsule 0.4 mg PO HS Qty: 30 RF: 0 acetaminophen 325 mg Tablet 650 mg PO Q6 PRN (Reason: Fever) RF: 0 benzonatate 100 mg Capsule 100 mg PO TID RF: 0 Fleet Enema 19-7 gram/118 mL Enema 118 ml GA DAILY PRN (Reason: Constipation) RF: 0 polyethylene glycol 3350 [Miralax] 17 gram/dose Powder 17 g PO DAILY RF: 0 bupropion HCl [Wellbutrin XL] 150 mg Tablet Extended Release 24 Hr 150 mg PO QAM RF: 0 atorvastatin 40 mg tablet 40 mg PO QPM RF: 0 acetaminophen 325 mg tablet 650 mg PO Q8 PRN (Reason: Pain) RF: 0 phenazopyridine [Pyridium] 200 mg tablet 200 mg PO Q8H PRN (Reason: pain) Qty: 10 RF: 0 cephalexin 500 mg capsule 500 mg PO BID 3 Days Qty: 6 RF: 0 doxazosin 1 mg Tablet 1 mg PO QPM Qty: 30 RF: 0 amiodarone 200 mg tablet 200 mg PO QAM Qty: 30 RF: 0 aspirin 81 mg Tablet,Delayed Release (Dr/Ec) 81 mg PO DAILY Qty: 30 RF: 0 famotidine 20 mg tablet 20 mg PO BID Qty: 60 RF: 0 furosemide 20 mg tablet 20 mg PO MOWEFR@0900 Qty: 20 RF: 0 metoprolol succinate 25 mg Tablet Extended Release 24 Hr 12.5 mg PO QAM Qty: 30 RF: 0 docusate sodium 100 mg Tablet 100 mg PO BID Qty: 60 RF: 0 Referrals Referrals: [facility] [Primary Care Provider] -
[2021-08-26 17:36] LABS: Albumin Globulin Ratio 0.8 (0.9-2); Albumin Level 2.1 gm/dl (3.4-5.0); Bilirubin,Total 0.9 mg/dl (0.2-1.0); Calcium 6.9 mg/dl (8.5-10.1); Creatinine Clr Calc Pharmacy 26.3 ml/min; Est GFR (Non-African American) 29.3 ml/min; Globulin 2.5 gm/dl (2.5-4.0); Potassium 4.1 mmol/L (3.5-5.1); Total Protein 4.6 gm/dl (6.0-8.3)
[2021-08-26 17:46] LABS: Troponin I High Sensitivity 7.6 pg/ml (0-20)
[2021-08-26 17:57] LABS: Magnesium 1.4 mg/dl (1.7-2.4)
[2021-08-26] MEDS ORDERED: SODIUM CHLORIDE 0.9% 1000ML 500 ML IV ONE (18:06)
[2021-08-26] MEDS ORDERED: MAGNESIUM SULFATE / D5W 1 GM/100 ML BAG IV STA (18:07)
[2021-08-26 18:11] LABS: INR 2.1 (0.9-1.1); Partial Thromboplastin Ratio 1.1; Partial Thromboplastin Time 30.9 Seconds (21.0-31.0); Prothrombin Time 21.4 Seconds (9.0-12.0)
[2021-08-26 18:16] LABS: Influenza A virus by PCR Negative (Neg); Influenza B virus by PCR Negative (Neg); RSV by PCR Negative (Neg); SARS CoV2 RNA(COVID-19) InHosp NEGATIVE (Negative)
[2021-08-26] MEDS ORDERED: CEFEPIME 2,000 MG/20 ML VIAL IV STA (18:23)
[2021-08-26] MEDS ORDERED: ALBUT/IPRATROP 3MG/0.5MG NEB 3 ML VIAL NEB STA (18:25)
--- NOTE | 2021-08-26 18:37 | CT Scan Report ---
CT abd pelvis wo con CLINICAL HISTORY: poss hydro TECHNIQUE: Helical axial images of the abdomen and pelvis were obtained. Automated dose lowering tech niques and/or adjustment according to patient size were utilized for this exam. This exam was perfor med without intravenous contrast. CT DOSE: 288.29 mGy.cm COMPARISON: Comparison is made to CT abdomen pelvis 01/02/2022 FINDINGS: Lower chest: There is a possible right pleural effusion and opacity in the right lower lobe. Biatria l enlargement is noted. Liver: Unremarkable. No focal lesions are seen. Gallbladder and biliary tree: Prominent gallbladder without evidence of cholelithiasis or cholecystit is. No intra- or extrahepatic biliary ductal dilation. Pancreas: Unremarkable, no focal lesions. Spleen: Unremarkable. Adrenals: Unremarkable. Kidneys and ureters: A left ureteric stent is noted. Bladder: A focus of gas is noted in the bladder. Reproductive organs: Unremarkable. Bowel: A hiatal hernia is seen. A duodenal diverticulum is incidentally noted. Lymph nodes Retroperitoneal: Unremarkable. Mesenteric: Unremarkable. Pelvic: Unremarkable. Peritoneum: Normal. Vessels: Extensive atherosclerotic calcifications are seen. Abdominal wall: Unremarkable. Bones: Degenerative changes in the visualized spine. IMPRESSION: 1. No evidence of nephrolithiasis. A left nephroureteral stent is in place. 2. Airspace opacities in the right lower lung may represent atelectasis, pneumonia, and/or aspiratio n. Underlying effusion cannot be excluded. 3. Extensive atherosclerotic disease. 4. Additional findings as above. ACT 112: Negative or not required by law. Electronically signed by: Vargas Sanchez M.D. 08/26/2021 6:34 PM
--- NOTE | 2021-08-26 19:15 | History & Physical Report ---
Date of Service August 26, 2021 Assessment & Plan (1) Hypotension: Plan: BP as low as 60/40 per report at [facility]. Responded to IV fluids with BP now 95/65. Lactate 3.2 with repeat pending. - Concern for dehydration vs. sepsis -> Presumptive source is pneumonia vs. UTI - CT a/p on admission shows likely LLL pneumonia * Start Zosyn with thought for possible aspiration pneumonia from vomiting yesterday * Chest CT ordered to better view entire lung * MRSA swab ordered to r/o MRSA pneumonia (not presently covering for this, but fairly low concern) * OPERATIONS SECTION MANAGER consult - Left stent exchange on 08/[address] Quiros. Had been started on cephalexin prophylaxis, but this would not cover his usual urine cx. Pseudomonas * Stent is in good position on CT a/p on admission. Do not feel urology consult is needed at this time. * Bladder scans Qshift ordered with request to notify provider for results > 150 mL. * Asked for straight cath urinalysis as sample from his [place] cath will inevitably be contaminated. - Follow blood cultures also drawn in the ER (2) Acute hypoxemic respiratory failure: Plan: Likely due to pneumonia. No baseline home O2 needs. - Supplement O2 as needed for SpO2 >=90% (3) Acute renal failure superimposed on stage 3 chronic kidney disease: Plan: Baseline Cr ~1.3. Cr was 2.0 on admission. Unclear whether it is pre-renal, post-renal, or combination. Intrinsic seems less likely given stable medication regimen. - Hold home Lasix - Gentle IV fluids (given 2 L in the ER, so will limit to 1 additional liter for now) - Monitor Cr - Bladder scans to r/o urinary retention. CT a/p shows no hydronephrosis, so this would seem to be less likely. (4) BPH (benign prostatic hypertrophy): Plan: Follows with [facility] [place] [facility]. - Continue home tamsulosin - Hold doxazosin for now given duplicate therapy (unclear if med rec was done correctly) and hypotension. - Bladder scans as above (5) Paroxysmal A-fib: Plan: Per prior notes, is on warfarin 2 mg PO daily. - Continue home amiodarone & metoprolol - Continue home warfarin (6) CHF with left ventricular diastolic dysfunction, NYHA class 2: Plan: Appears hypovolemic to me on exam on admission. - Hold home Lasix - Monitor volume status (7) CAD (coronary artery disease): Plan: Hx of 1vCABG. - Continue home ASA, statin - Hold beta-carrington until BP normalizes (8) Cerebrovascular disease: Plan: In 2019. - Continue home ASA, statin as above (9) DVT prophylaxis: Plan: On warfarin for afib. INR therapeutic on admission. History of Present Illness Primary Care Provider: [facility] 81yo M w/ hx of CVA, atrial fibrillation, chronic diastolic CHF, COPD, and BPH who presents with low blood pressure, hypoxemia, and confusion. Per the ER report, he was found confused and hypoxemic in his long term room. EMS was called, and reportedly, his BP was as low as 60/40. He received a liter of fluids, and in the ER, his BP was 95/60. On 2L NC, his O2 has been >90%. He is a poor historian, and he cannot really recall the events leading to his admission. He reports that today he felt "a little tired," but then states that he also felt that way for at least several days (unclear of when the onset was). He notes that he coughs sometimes, but reports he has coughed "since he started smoking" which incidentally was over 50 years ago. He reports no sputum production or shortness of breath. He does note 5 episodes of emesis yesterday after breakfast. He denies abdominal pain or any current nausea or vomiting. He reports he just vomited the breakfast he had just eaten and denies any coffee ground emesis or hematemesis. He denies any fever, chills, denies any vision change or headache, denies urinary symptoms of burning or pain. He has been wearing a "[place] cath" for at least the last few hours, but he is not sure. No rashes, no ulcers, no skin breakdown per his report. No new joint aches or pains. Allergies Allergy/AdvReac Type Severity Reaction Status Date / Time guaifenesin AdvReac Intermediate GETS Verified 08/25/21 08:11 REALLY SICK FROM MUCINEX Home Medications Medication Instructions Recorded Confirmed Type amiodarone 200 mg tablet 200 mg PO QAM #30 tab 04/20/21 08/26/21 Rx aspirin 81 mg tablet,delayed 81 mg PO DAILY #30 tab 04/20/21 08/26/21 Rx release docusate sodium 100 mg tablet 100 mg PO BID #60 tab 04/20/21 08/26/21 Rx doxazosin 1 mg tablet 1 mg PO QPM #30 tab 04/20/21 08/26/21 Rx famotidine 20 mg tablet 20 mg PO BID #60 tab 04/20/21 08/26/21 Rx furosemide 20 mg tablet 20 mg PO MOWEFR@0900 #20 tab 04/20/21 08/26/21 Rx metoprolol succinate 25 mg 12.5 mg PO QAM #30 tab 04/20/21 08/26/21 Rx tablet,extended release 24 hr bisacodyl 10 mg rectal suppository 10 mg RI UD PRN 05/18/21 08/26/21 History (Dulcolax (bisacodyl)) magnesium hydroxide 400 mg/5 mL 30 ml PO DAILY PRN 05/18/21 08/26/21 History oral suspension (Milk of Magnesia) multivitamin 1 tab PO QPM 05/18/21 08/26/21 History tamsulosin 0.4 mg capsule 0.4 mg PO HS #30 cap 05/23/21 08/26/21 Rx acetaminophen 325 mg tablet 650 mg PO Q6 PRN 08/23/21 08/26/21 History acetaminophen 325 mg tablet 650 mg PO Q8 PRN 08/23/21 08/26/21 History atorvastatin 40 mg tablet 40 mg PO QPM 08/23/21 08/26/21 History benzonatate 100 mg capsule 100 mg PO TID 08/23/21 08/26/21 History bupropion HCl 150 mg 24 hr tablet, 150 mg PO QAM 08/23/21 08/26/21 History extended release (Wellbutrin XL) polyethylene glycol 3350 17 17 g PO DAILY 08/23/21 08/26/21 History gram/dose oral powder (Miralax) sodium phosphates 19 gram-7 118 ml RI DAILY PRN 08/23/21 08/26/21 History gram/118 mL enema (Fleet Enema) cephalexin 500 mg capsule 500 mg PO BID 3 Days #6 cap 08/25/21 08/26/21 Rx phenazopyridine 200 mg tablet 200 mg PO Q8H PRN #10 tab 08/25/21 08/26/21 Rx (Pyridium) Past Med/Surg History Medical History (Updated 08/26/21 @ 19:25 by Brendon Phillips MD) A-fib On Coumadin Anxiety Aortic aneurysm S/p thoracic aneurysm repair 2016 Per 04/04/21 abdomen/pelvis CT " There is no evidence for focal aneurysmal dilatation of the abdominal aorta. 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 per 04/20/21 discharge summary On ASA and Coumadin History of TIA prior to CVA Chronic diastolic (congestive) heart failure EF 55-60% Chronic kidney disease stage 3 COPD (chronic obstructive pulmonary disease) Dyslipidemia GERD (gastroesophageal reflux disease) History of basal cell carcinoma of skin History of COVID-19 04/04/21 per records History of sepsis Admitted Apr 2021 - dx'ed with complicated UTI and sepsis History of squamous cell carcinoma of skin HTN (hypertension) Impaired gait and mobility MRSA nasal colonization Neuropathy Pneumonia History of Covid pneumonia- dx'ed Mar/Apr 2021- treated with steroids Venous insufficiency Surgical History H/O arthroscopic knee surgery H/O thoracic aortic aneurysm repair History of aortic valve [place] 11/22/2015 - [place] [place] No mention of AVR in recent cardio records History of cataract surgery bilateral History of cystoscopy (04/04/21) with retrograde and left uretral stent placed and stent exchanges Knee joint replacement status Right S/P CABG x 1 Family History Other Diabetes Hypertension Social History Smoking Status: Never smoker Tobacco Type: Cigarettes Cigarettes Per Day: Former smoker; Second Hand Exposure: No; Hx Alcohol Use: Yes Alcohol type: beer and wine Hx Substance Use: No Preferred Language: Slovenian Communication Ability: Effective Visual Impairment: Limited Hearing Ability: Hard of Hearing 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 Beliefs That Will Affect Care: None marital status: Unknown Current Living Situation: [facility] Current Living Situation Comment: [facility] current occupational status: retired How many Children do You have: 2 Feels Safe at Home: Yes Review of Systems Review of Systems: All systems reviewed & are unremarkable except as noted in HPI & below Physical Exam Constitutional: WD/WN, vitals as above Eyes: EOM intact bilaterally; no conjunctival abnormality ENMT: external ear and nose normal, oropharynx normal Neck: trachea midline, no thyromegaly normal visual inspection Respiratory: normal respiratory effort, lungs clear to auscultation no respiratory distress Cardiovascular: Rate/Rhythm: regular rate and + irregularly irregular Extremities: no edema Gastrointestinal (Abdomen): Inspection/Auscultation: abdomen normal to inspe ction; abdomen not distended Musculoskeletal: no cyanosis or clubbing, extremities motor strength 5/5 Skin: no rashes, warm and dry + mottling (Venous stasis changes in both legs; no ulcers) Neurologic: moves all extremities and awake Psychiatric: Orientation: alert, oriented to person and cooperative Genitourinary: + penis abnormality ([place] cath in place) Results & Data Results & Data ([facility]) Vital Signs (Past 12 Hours) Vital Signs Temp Pulse Pulse Resp BP BP Pulse Ox 08/26/21 18:35 92 H 22 94/61 L 94 08/26/21 17:50 94 H 20 100/72 96 08/26/21 16:39 96 08/26/21 15:45 36.5 C 102 H 22 96/50 L 91 Code Status & VTE Plan VTE Prophylaxis Plan VTE Prophylaxis will be ordered: Yes PG Care Time/CCT Total # of Minutes Spent Total Time Spent with Patient: Total time spent is greater than 50% in coordination of care (as documented) at patient's floor/unit and/or counseling patient: Coding Level of Care Code 35703 Initial Inpt Care Lvl 3 Diagnoses Hypotension I95.9 Acute hypoxemic respiratory failure J96.01 BPH (benign prostatic hypertrophy) N40.0 Paroxysmal A-fib I48.0 CHF with left ventricular diastolic dysfunction, NYHA class 2 I50.30 Acute renal failure superimposed on stage 3 chronic kidney disease N17.9; N18.3 Acute renal failure type: unspecified CAD (coronary artery disease) I25.10 Cerebrovascular disease I67.9 DVT prophylaxis Z29.9 (1) Acute renal failure superimposed on stage 3 chronic kidney disease Acute renal failure type: unspecified Qualified Code(s): N17.9 - Acute kidney failure, unspecified; N18.3 - Chronic kidney disease, stage 3 (moderate)
[2021-08-26 19:34] LABS: Appearance Urine Cloudy (Clear); Bilirubin Urine 3+ (Negative); Blood Urine 3+ (Negative); Color Urine Brown; Glucose Urine UA Negative (Negative); Ketones Urine 1+ (Negative); Leukocyte Esterase Urine 3+ (Negative); Nitrite Urine Negative (Negative); Protein Urine 3+ (Negative); Specific Gravity Urine >= 1.030 (1.000-1.030); Urobilinogen Urine Negative (Negative)
[2021-08-26] MEDS ORDERED: LACTATED RINGER'S 1,000 ML IV ONE (21:22)
[2021-08-26] MEDS ORDERED: LINEZOLID 600 MG/300 ML D5W IV SCH (22:00)
[2021-08-26] MEDS ORDERED: LINEZOLID 600 MG/300 ML BAG IV SCH (22:30)
[2021-08-26] MEDS ORDERED: LINEZOLID 600 MG/300 ML D5W IV ONE (22:30)
[2021-08-26] MEDS ORDERED: STAT IV Infusion **Titration per Protocol STA (22:35)
[2021-08-26] MEDS: NOREPINEPHRINE/D5W 4 MG/250 ML PLCT IV SCH (22:42)
--- NOTE | 2021-08-26 22:51 | Communication Note ---
Date of Service: August 26, 2021 septic shock MAP 50s. pulmonary vs urinary source: admit to ICU for pressor support. Clarified code status w/ patient. Conditional code: Yes to pressors. No to defib, cpr, intubation. Has capacity per my assessment.
[2021-08-26] MEDS ORDERED: ICU PROTOCOL FOR HYPERGLYCEMIA PRN (23:58)
--- NOTE | 2021-08-27 01:36 | Critical Care Consultation ---
Date of Consultation August 27, 2021 Assessment & Plan (1) Admitted to intensive care unit: Reason Critically Ill: 81-year-old male with severe sepsis from likely pulmonary source requiring vasopressor support in addition to aggressive antibiotic coverage NEURO - * AMS: * Apparently had improved with IV fluid resuscitation. * Patient is alert and oriented, however he is pleasantly confused and question degree of baseline dementia. No focal neurological deficits on exam. CARDIAC/VASCULAR - * Hypotension: * In the setting of sepsis syndrome. * Responded to IV fluids in the emergency department. * Eventually required vasopressors. * Gentle IV fluids with history of CHF. * Coronary artery disease, hypertension, A. fib: * Hold on antihypertensives for now. * Monitor on telemetry. RESPIRATORY - * Pneumonia: * Question aspiration secondary to recent episodes of vomiting. GI/NUTRITION - * N.p.o. with recent vomiting episodes. * Prophylaxis: Famotidine RENAL/LYTES - * MARLENA on CKD 3: * Received 2.5 L normal saline in the emergency department. * With a gentle hydration for now. * IVF: Normosol at 80 mils per hour. - * BPH, recent LEFT ureteral stent exchange, recurrent UTIs, urinary incontinence: * [place] catheter in place * CT abdomen pelvis without significant findings, particular with attention to the recent stent. ENDO - * No history of diabetes or thyroid disease * BSGs per unit protocol. ISS --> gtt per unit policy. HEME - * Stable H&H ID - * Severe sepsis likely secondary to pulmonary source: * Continue Zosyn and Zyvox * Trend lactate. * Repeat a.m. Pro-Rene LINES/IV ACCESS - * PIVs x2 DVT PROPHYLAXIS - * Hold as patient is anticoagulated on Coumadin * SCDs I have personally spent 35 minutes of critical care time in the direct management of this patient. This is a life/limb threatening event. This includes time spent evaluating patient, direct bedside care, chart review, placing orders, interpretation of diagnostic studies, discussion with consultants, patient, and family members, as well as other required patient management activities. This time is exclusive of all separately billable procedures, and teaching time and separate from and in addition to any other critical care service time. Thank you for allowing us to participate in the care of this patient. Please refer to my attending physician's documentation for any further recommendations. (2) Pneumonia: (3) Hypotension: (4) MARLENA (acute kidney injury): (5) Hypotension: History of Present Illness Attending Physician: Jaya Linda MD History of Present Illness Patient is an 81-year-old male with an extensive past medical history including coronary artery disease status post CABG, thoracic aortic aneurysm repair, CHF, prior CVA, recurrent UTIs, recurrent ureteral stones, hypertension, hyperlipidemia, A. fib, COPD. Patient presented to the emergency department altered and hypotensive. His blood pressure improved with crystalloid boluses in the emergency department as did his mental status. Concerns for possible UTI versus pneumonia. Patient started on broad-spectrum antibiotics. Unfortunately, while waiting to be transferred to the floor, the patient's blood pressures remained soft and eventually required initiation of vasopressors. Apparently, per conversation with resident, patient was adamant that he was DNR/DNI, however was agreeable to vasopressors. Upon evaluation in the ICU, the patient is awake and alert. He is pleasantly confused. He offers no complaints of pain at this time. Allergies Allergy/AdvReac Type Severity Reaction Status Date / Time guaifenesin AdvReac Intermediate GETS Verified 08/25/21 08:11 REALLY SICK FROM MUCINEX Home Medications Medication Instructions Recorded Confirmed Type amiodarone 200 mg tablet 200 mg PO QAM #30 tab 04/20/21 08/26/21 Rx aspirin 81 mg tablet,delayed 81 mg PO DAILY #30 tab 04/20/21 08/26/21 Rx release docusate sodium 100 mg tablet 100 mg PO BID #60 tab 04/20/21 08/26/21 Rx doxazosin 1 mg tablet 1 mg PO QPM #30 tab 04/20/21 08/26/21 Rx famotidine 20 mg tablet 20 mg PO BID #60 tab 04/20/21 08/26/21 Rx furosemide 20 mg tablet 20 mg PO MOWEFR@0900 #20 tab 04/20/21 08/26/21 Rx metoprolol succinate 25 mg 12.5 mg PO QAM #30 tab 04/20/21 08/26/21 Rx tablet,extended release 24 hr bisacodyl 10 mg rectal suppository 10 mg UT UD PRN 05/18/21 08/26/21 History (Dulcolax (bisacodyl)) magnesium hydroxide 400 mg/5 mL 30 ml PO DAILY PRN 05/18/21 08/26/21 History oral suspension (Milk of Magnesia) multivitamin 1 tab PO QPM 05/18/21 08/26/21 History tamsulosin 0.4 mg capsule 0.4 mg PO HS #30 cap 05/23/21 08/26/21 Rx acetaminophen 325 mg tablet 650 mg PO Q6 PRN 08/23/21 08/26/21 History acetaminophen 325 mg tablet 650 mg PO Q8 PRN 08/23/21 08/26/21 History atorvastatin 40 mg tablet 40 mg PO QPM 08/23/21 08/26/21 History benzonatate 100 mg capsule 100 mg PO TID 08/23/21 08/26/21 History bupropion HCl 150 mg 24 hr tablet, 150 mg PO QAM 08/23/21 08/26/21 History extended release (Wellbutrin XL) polyethylene glycol 3350 17 17 g PO DAILY 08/23/21 08/26/21 History gram/dose oral powder (Miralax) sodium phosphates 19 gram-7 118 ml UT DAILY PRN 08/23/21 08/26/21 History gram/118 mL enema (Fleet Enema) cephalexin 500 mg capsule 500 mg PO BID 3 Days #6 cap 08/25/21 08/26/21 Rx phenazopyridine 200 mg tablet 200 mg PO Q8H PRN #10 tab 08/25/21 08/26/21 Rx (Pyridium) Patient History Medical History A-fib On Coumadin Anxiety Aortic aneurysm S/p thoracic aneurysm repair 2015 Per 04/04/21 abdomen/pelvis CT " There is no evidence for focal aneurysmal dilatation of the abdominal aorta. 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 per 04/20/21 discharge summary On ASA and Coumadin History of TIA prior to CVA Chronic diastolic (congestive) heart failure EF 55-60% Chronic kidney disease stage 3 COPD (chronic obstructive pulmonary disease) Dyslipidemia GERD (gastroesophageal reflux disease) History of basal cell carcinoma of skin History of COVID-19 04/04/21 per records History of sepsis Admitted Apr 2021 - dx'ed with complicated UTI and sepsis History of squamous cell carcinoma of skin HTN (hypertension) Impaired gait and mobility MRSA nasal colonization Neuropathy Pneumonia History of Covid pneumonia- dx'ed Mar/Apr 2021- treated with steroids Venous insufficiency Surgical History H/O arthroscopic knee surgery H/O thoracic aortic aneurysm repair History of aortic valve replacement 11/22/2015 - Dr. Mayo [place] ([facility] [place] per records No mention of AVR in recent cardio records History of cataract surgery bilateral History of cystoscopy (04/04/21) with retrograde and left uretral stent placed and stent exchanges Knee joint replacement status Right S/P CABG x 1 Family History Other Diabetes Hypertension Social History Smoking Status: Never smoker Tobacco Type: Cigarettes Cigarettes Per Day: Former smoker; Second Hand Exposure: No; Hx Alcohol Use: No Hx Substance Use: No Preferred Language: Sinhala Communication Ability: Effective Visual Impairment: Limited Hearing Ability: Hard of Hearing 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 GENERAL - 81-year-old male appearing his stated age who is in no acute distress. Pleasantly confused. SKIN - Without rashes. HEAD - NC/AT. EYES - PERRL with EOMI bilaterally. Sclera anicteric. EARS - No deformities of external structures noted on gross examination bilaterally. NOSE - Midline and without cyanosis. No epistaxis or purulent drainage noted. MOUTH/OROPHARYNX - Without perioral cyanosis. Buccal mucosa pink and dry. NECK - Neck with FROM. Supple to palpation. No lymphadenopathy noted. No nuchal rigidity. LUNGS - Chest wall symmetric without accessory muscle use, intercostals retractions, or central cyanosis. Normal vesicular breath sounds CTA B/L. No wheezes, rales, or rhonchi appreciated. CARDIAC - RRR with S1/S2. No murmur, rubs, or gallops appreciated. ABDOMEN - Abdominal contour flat without pulsations or visible masses. BS normoactive all four quadrants. No tenderness, palpable masses, hepatosplenomegaly, or ascites noted. EXTREMITIES - No clubbing or peripheral cyanosis. No pretibial edema present. +3/5 radial pulses palpated throughout. +5/5 strength noted in UE/LE bilaterally. NEUROLOGIC - Cranial nerves II through XII grossly intact. PSYCH - A&O to self and location. Confused of year, month, city, etc. Pleasantly confused and does answer questions. Results & Data Results & Data ([facility]) Vital Signs (Past 12 Hours) Vital Signs Temp Pulse Pulse Resp BP BP Pulse Ox 08/27/21 00:00 36.8 C 80 83 11 L 105/51 L 105/51 L 98 08/26/21 23:46 36.8 C 80 20 115/95 96 08/26/21 23:45 79 13 115/55 L 96 08/26/21 23:37 80 15 95/57 L 08/26/21 23:31 82 18 08/26/21 23:00 80 20 101/41 L 95 08/26/21 22:39 84 20 86/44 L 96 08/26/21 22:15 87 16 84/40 L 94 08/26/21 22:00 90 16 83/38 L 97 08/26/21 21:30 84 18 81/41 L 96 08/26/21 21:14 88 18 76/42 L 95 08/26/21 19:31 18 156/106 H 92 08/26/21 18:35 92 H 22 94/61 L 94 08/26/21 17:50 94 H 20 100/72 96 08/26/21 16:39 96 08/26/21 15:45 36.5 C 102 H 22 96/50 L 91 Coding Level of Care Code Critical Care 1st 30-74 mins Diagnoses Admitted to intensive care unit Z78.9 Pneumonia J18.9 Laterality: right Lung location: unspecified part of lung Pneumonia type: due to unspecified organism Hypotension I95.9 MARLENA (acute kidney injury) N17.9 Hypotension I95.9 Hypotension type: unspecified hypotension type Time Spent (min) 35 (1) Pneumonia Laterality: right Lung location: unspecified part of lung Pneumonia type: due to unspecified organism Qualified Code(s): J18.9 - Pneumonia, unspecified organism (2) Hypotension Hypotension type: unspecified hypotension type Qualified Code(s): I95.9 - Hypotension, unspecified
[2021-08-27] MEDS ORDERED: ICU PROTOCOL FOR HYPERGLYCEMIA PRN (04:45)
[2021-08-27] MEDS ORDERED: PIPERACILLIN/TAZOBACTAM 3.375 GM in DEXTROSE 5% 100 ML IV ONE (05:00)
[2021-08-27 05:27] LABS: Hemoglobin 10.9 g/dL (14.0-18.0); Mean Corpuscular Hemoglobin 27.7 pg (25-34); Mean Corpuscular Hgb Conc 32.1 g/dL (32-36); Mean Corpuscular Volume 86.3 fL (80-100); Mean Platelet Volume 10.6 fL (7.4-10.4); Platelet Count 177 K/uL (130-400); RDW Coefficient of Variation 16.9 % (11.5-14.5); Red Blood Count 3.94 M/uL (4.7-6.1); White Blood Count 11.91 K/uL (4.8-10.8)
[2021-08-27 05:38] LABS: Prothrombin Time 20.5 Seconds (9.0-12.0)
[2021-08-27 05:47] LABS: BUN Creatinine Ratio 18.8 (10-20); Calcium 7.1 mg/dl (8.5-10.1); Creatinine Clr Calc Pharmacy 28.2 ml/min; Est GFR (Non-African American) 31.9 ml/min; Magnesium 1.6 mg/dl (1.7-2.4); Phosphorus 3.3 mg/dl (2.5-4.9)
[2021-08-27 06:21] LABS: Basophils # (auto) 0.01 K/uL (0-0.2); Basophils % (auto) 0.1 %; Eosinophils # (auto) 0.04 K/uL (0-0.5); Eosinophils % (auto) 0.3 %; Immature Granulocytes # (auto) 0.06 K/uL (0.00-0.02); Immature Granulocytes % (auto) 0.5 %; Lymphocytes # (auto) 1.11 K/uL (1.2-3.4); Lymphocytes % (auto) 9.3 %; Monocytes # (auto) 0.35 K/uL (0.11-0.59); Monocytes % (auto) 2.9 %; Neutrophils # (auto) 10.34 K/uL (1.4-6.5); Neutrophils % (auto) 86.9 %; Poikilocytosis Present
[2021-08-27] MEDS: NORMOSOL-R 1,000 ML IV SCH ×2 (06:21→17:41)
[2021-08-27] MEDS: FAMOTIDINE 20 MG in SYRINGE 3 ML IV SCH ×2 (08:25→20:01)
[2021-08-27] MEDS: DEXTROSE 10% 1,000 ML IV SCH (08:43)
[2021-08-27] MEDS: MAGNESIUM SULFATE / D5W 1 GM/100 ML BAG IV SCH ×3 (08:43→14:15)
[2021-08-27] MEDS: PIPERACILLIN/TAZOBACTAM 3.375 GM in DEXTROSE 5% 100 ML IV SCH ×2 (10:50→18:26)
[2021-08-27] MEDS: LINEZOLID 600 MG/300 ML BAG IV SCH ×2 (10:50→20:01)
--- NOTE | 2021-08-27 14:01 | Hospitalist Progress Note ---
Date of Service August 27, 2021 Assessment & Plan (1) Septic shock: Plan: Suspected source urine vs. more likely PNA. Now off Vasopressor support. Urine culture with GNB although suspect PNA more likely source. Continue Linezolid and Zosyn pending blood culture results. Procalcitonin increasing, continue to trend. (2) Hypotension: Plan: Secondary to septic shock as above - Left stent exchange on 08/[address] Quiros. Had been started on cephalexin prophylaxis, but this would not cover his usual urine cx. Pseudomonas * Stent is in good position on CT a/p on admission. Do not feel urology consult is needed at this time. * Bladder scans Qshift ordered with request to notify provider for results > 150 mL. * Asked for straight cath urinalysis as sample from his [place] cath will inevitably be contaminated. (3) Acute hypoxemic respiratory failure: Plan: Likely due to pneumonia. No baseline home O2 needs. - Supplement O2 as needed for SpO2 >=90% (4) Acute renal failure superimposed on stage 3 chronic kidney disease: Plan: Baseline Cr ~1.3. Cr was 2.0 on admission. Improved to 1.92. - Hold home Lasix - IV fluids per ICU team - Monitor Cr - Bladder scans to r/o urinary retention. CT a/p shows no hydronephrosis, so this would seem to be less likely. (5) BPH (benign prostatic hypertrophy): Plan: Follows with [facility] [place]. - Continue home tamsulosin - Hold doxazosin for now given duplicate therapy (unclear if med rec was done correctly) and hypotension. - Bladder scans as above (6) Paroxysmal A-fib: Plan: Per prior notes, is on warfarin 2 mg PO daily. - Continue home amiodarone & metoprolol - Continue home warfarin (7) CHF with left ventricular diastolic dysfunction, NYHA class 2: Plan: Appears hypovolemic to me on exam on admission. Appears euvolemic currently. - Hold home Lasix - Monitor volume status (8) CAD (coronary artery disease): Plan: Hx of 1vCABG. - Continue home ASA, statin - Hold beta-carrington until BP normalizes (9) Cerebrovascular disease: Plan: In 2020. - Continue home ASA, statin as above (10) DVT prophylaxis: Plan: On warfarin for afib. INR 2.0. Unclear why warfarin discontinued but restart when able per ICU team. Plan: VTE Prophylaxis - INR therapeutic Diet - NPO Disposition - continue in ICU Admission and Anticipated Discharge Date Admission Date: August 26, 2021 Subjective Patient feeling well. No shortness of breath or chest pain. Coughing up clear phlegm. Cannot remember events leading up to admission. Aware he is in hospital but disorientated to time. Reports feeling better from admission. Review of Systems Review of Systems: All systems reviewed & are unremarkable except as noted in Subjective Physical Exam Constitutional: WD/WN, vitals as above Eyes: + anicteric sclerae; normal pupil size ENMT: external ear and nose normal, oropharynx normal Neck: trachea midline, no thyromegaly Respiratory: normal respiratory effort, lungs clear to auscultation Gastrointestinal (Abdomen): normal bowel sounds, soft, nontender, no hepatosplenomegaly Musculoskeletal: no cyanosis or clubbing, extremities motor strength 5/5 Skin: no rashes, warm and dry Neurologic: moves all extremities and awake; not confused Psychiatric: Orientation: alert, oriented to person and oriented to place; + not oriented to time Genitourinary: no CVA tenderness Results & Data Results & Data ([facility]) Vital Signs (Past 12 Hours) Vital Signs Temp Pulse Resp BP Pulse Ox 08/27/21 10:30 91 H 23 97 08/27/21 10:00 90 20 97/59 L 99 08/27/21 09:30 90 23 98 08/27/21 09:00 88 19 08/27/21 08:30 89 13 97/51 L 96 08/27/21 08:00 36.6 C 89 11 L 96/46 L 100 08/27/21 07:30 88 11 L 95/47 L 99 08/27/21 07:00 82 10 L 95/46 L 97 08/27/21 04:30 86 10 L 106/54 L 99 08/27/21 04:00 86 15 102/53 L 98 08/27/21 03:30 86 13 98/49 L 97 08/27/21 03:00 86 12 99/53 L 98 08/27/21 02:45 88 20 116/55 L 95 08/27/21 02:30 85 11 L 121/60 99 08/27/21 02:15 85 13 107/52 L 99 08/27/21 02:00 84 13 112/57 L 99 PG Care Time/CCT Total # of Minutes Spent Total Time Spent with Patient: Total time spent is greater than 50% in coordination of care (as documented) at patient's floor/unit and/or counseling patient: Coding Level of Care Code 51738 Subseq Hosp Care Lvl 3 Diagnoses Hypotension I95.9 Acute hypoxemic respiratory failure J96.01 Acute renal failure superimposed on stage 3 chronic kidney disease N17.9; N18.3 Acute renal failure type: unspecified BPH (benign prostatic hypertrophy) N40.0 Paroxysmal A-fib I48.0 CHF with left ventricular diastolic dysfunction, NYHA class 2 I50.30 CAD (coronary artery disease) I25.10 Cerebrovascular disease I67.9 DVT prophylaxis Z29.9 Septic shock A41.9; R65.21 (1) Acute renal failure superimposed on stage 3 chronic kidney disease Acute renal failure type: unspecified Qualified Code(s): N17.9 - Acute kidney failure, unspecified; N18.3 - Chronic kidney disease, stage 3 (moderate)
[2021-08-27] MEDS ORDERED: ALBUMIN 5% 250 ML IV ONE ×2 (16:41→16:43)
[2021-08-27 17:40] LABS: BUN Creatinine Ratio 22.4 (10-20); Calcium 7.4 mg/dl (8.5-10.1); Creatinine Clr Calc Pharmacy 32.8 ml/min; Est GFR (African American) 44.5 ml/min; Est GFR (Non-African American) 38.4 ml/min; Potassium 3.7 mmol/L (3.5-5.1)
[2021-08-27] MEDS: NOREPINEPHRINE/D5W 4 MG/250 ML PLCT IV SCH (17:41)
[2021-08-28] MEDS: PIPERACILLIN/TAZOBACTAM 3.375 GM in DEXTROSE 5% 100 ML IV SCH ×3 (02:07→17:43)
[2021-08-28 05:03] LABS: Basophils # (auto) 0.01 K/uL (0-0.2); Basophils % (auto) 0.1 %; Eosinophils # (auto) 0.26 K/uL (0-0.5); Eosinophils % (auto) 2.4 %; Hematocrit (blood only) 30.5 % (42-52); Hemoglobin 9.8 g/dL (14.0-18.0); Immature Granulocytes # (auto) 0.04 K/uL (0.00-0.02); Immature Granulocytes % (auto) 0.4 %; Lymphocytes % (auto) 6.6 %; Mean Corpuscular Hemoglobin 27.5 pg (25-34); Mean Corpuscular Hgb Conc 32.1 g/dL (32-36); Mean Corpuscular Volume 85.4 fL (80-100); Monocytes # (auto) 0.43 K/uL (0.11-0.59); Neutrophils % (auto) 86.5 %; Platelet Count 122 K/uL (130-400); RDW Coefficient of Variation 16.4 % (11.5-14.5); Red Blood Count 3.57 M/uL (4.7-6.1); White Blood Count 10.64 K/uL (4.8-10.8)
[2021-08-28 05:07] LABS: Prothrombin Time 20.3 Seconds (9.0-12.0)
[2021-08-28 05:46] LABS: Albumin Level 2.2 gm/dl (3.4-5.0); Bilirubin,Total 0.9 mg/dl (0.2-1.0); Calcium 7.3 mg/dl (8.5-10.1); Est GFR (African American) 54.7 ml/min; Est GFR (Non-African American) 47.2 ml/min; Globulin 2.3 gm/dl (2.5-4.0); Magnesium 2.2 mg/dl (1.7-2.4); Potassium 3.3 mmol/L (3.5-5.1); Total Protein 4.5 gm/dl (6.0-8.3)
[2021-08-28] MEDS ORDERED: POTASSIUM PHOS 3 MMOL/1 ML INFUSION IV STA (06:08)
[2021-08-28] MEDS: NORMOSOL-R 1,000 ML IV SCH (06:11)
[2021-08-28] MEDS: DEXTROSE 10% 1,000 ML IV SCH (06:11)
[2021-08-28] MEDS ORDERED: POTASSIUM PHOSPHATE 15 MMOL in SODIUM CHLORIDE 0.9% 250 ML IV ONE (06:30)
[2021-08-28] MEDS: FAMOTIDINE 20 MG in SYRINGE 3 ML IV SCH (07:30)
[2021-08-28] MEDS: LINEZOLID 600 MG/300 ML BAG IV SCH ×2 (10:19→22:41)
--- NOTE | 2021-08-28 11:04 | Hospitalist Progress Note ---
Date of Service August 28, 2021 Assessment & Plan (1) Hypotension: Plan: BP as low as 60/40 per report at [facility]. Responded to IV fluids, but then dropped lower requiring transient pressors in the ICU on 08/27. BP stable on 08/28, and he is tranferred out of the ICU. - Presumptive sepsis source is pneumonia vs. UTI - CT a/p on admission showed likely LLL pneumonia * Continue Zosyn with thought for possible aspiration pneumonia from vomiting prior to presentation. * Chest CT ordered to better view entire lung * MRSA swab positive; added linezolid. * FUNCTIONAL TESTER consult - Left stent exchange on 08/[address] Quiros. Had been started on cephalexin prophylaxis, but this would not cover his usual urine cx. Pseudomonas * Stent is in good position on CT a/p on admission. Do not feel urology consult is needed at this time. * Bladder scans Qshift ordered with request to notify provider for results > 150 mL. * Urine cx growing Proteus - Follow blood cultures also drawn in the ER (2) Acute hypoxemic respiratory failure: Plan: Likely due to pneumonia. - Supplement O2 as needed for SpO2 >=90% (3) Acute renal failure superimposed on stage 3 chronic kidney disease: Plan: Baseline Cr ~1.3. Cr was 2.0 on admission. Back to baseline by 08/28 after IV fluids. - Monitor Cr - Bladder scans to r/o urinary retention. CT a/p shows no hydronephrosis, so this would seem to be less likely. (4) BPH (benign prostatic hypertrophy): Plan: Follows with [facility]. - Continue home tamsulosin - Hold doxazosin for now given duplicate therapy (unclear if med rec was done correctly) and hypotension. - Bladder scans as above (5) Paroxysmal A-fib: Plan: Per prior notes, is on warfarin 2 mg PO daily. - Continue home amiodarone & metoprolol - Continue home warfarin - INR 2.0 today. (6) CHF with left ventricular diastolic dysfunction, NYHA class 2: Plan: Appears euvolemic to me on exam today. - Hold home Lasix - Monitor volume status (7) CAD (coronary artery disease): Plan: Hx of 1vCABG. - Continue home ASA, beta-carrington, statin (8) Cerebrovascular disease: Plan: In 2019. - Continue home ASA, statin as above (9) DVT prophylaxis: Plan: On warfarin for afib. INR therapeutic. Admission and Anticipated Discharge Date Admission Date: August 26, 2021 Subjective Very grumpy this morning. Swearing repeatedly about breakfast, and how he has not been allowed to eat "for 9 days." He has his breakfast in front of him, but is upset about what was brought. I assured him we could adjust breakfast as needed, and hopefully he would not need to be in the hospital too long. Reports no fevers/chills, chest pain, shortness of breath, abdominal pain, nausea, or vomiting. Physical Exam Constitutional: WD/WN, vitals as above Eyes: EOM intact bilaterally; no conjunctival abnormality ENMT: external ear and nose normal, oropharynx normal Neck: trachea midline, no thyromegaly normal visual inspection Respiratory: normal respiratory effort, lungs clear to auscultation no respiratory distress Cardiovascular: Rate/Rhythm: regular rate and + irregularly irregular Extremities: no edema Gastrointestinal (Abdomen): Inspection/Auscultation: abdomen normal to inspection; abdomen not distended Musculoskeletal: no cyanosis or clubbing, extremities motor strength 5/5 Skin: no rashes, warm and dry + mottling (Venous stasis changes in both legs; no ulcers) Neurologic: moves all extremities and awake Psychiatric: Orientation: alert, oriented to person and cooperative Genitourinary: + penis abnormality ([place] cath in place) Results & Data Results & Data ([facility]) Vital Signs (Past 12 Hours) Vital Signs Temp Pulse Resp BP Pulse Ox 08/28/21 08:00 36.6 C 22 08/28/21 07:43 64 13 113/71 93 08/28/21 07:00 66 12 118/57 L 98 PG Care Time/CCT Total # of Minutes Spent Total Time Spent with Patient: Total time spent is greater than 50% in coordination of care (as documented) at patient's floor/unit and/or counseling patient: Coding Level of Care Code 63525 Subseq Hosp Care Lvl 3 Diagnoses Hypotension I95.9 Acute hypoxemic respiratory failure J96.01 Acute renal failure superimposed on stage 3 chronic kidney disease N17.9; N18.3 Acute renal failure type: unspecified BPH (benign prostatic hypertrophy) N40.0 Paroxysmal A-fib I48.0 CHF with left ventricular diastolic dysfunction, NYHA class 2 I50.30 CAD (coronary artery disease) I25.10 Cerebrovascular disease I67.9 DVT prophylaxis Z29.9 (1) Acute renal failure superimposed on stage 3 chronic kidney disease Acute renal failure type: unspecified Qualified Code(s): N17.9 - Acute kidney failure, unspecified; N18.3 - Chronic kidney disease, stage 3 (moderate)
--- NOTE | 2021-08-28 11:05 | XRay Report ---
XR chest 1V portable CLINICAL HISTORY: Weakness TECHNIQUE: Single frontal radiograph of the chest was obtained. Comparison: Comparison is made to chest radiograph 08/26/2021 FINDINGS: Median sternotomy wires are unchanged. Calcified aortic knob is seen. Prominence of the descending ao rta is noted. Interval worsening of right midlung and lower right lung airspace opacity. Elevation of right hemidiaphragm is seen. IMPRESSION: 1. Interval worsening of right sided airspace opacity which may represent atelectasis, pneumonia, an d/or aspiration. 2. Enlargement of the descending aorta is unchanged. ACT 112: Negative or not required by law. Electronically signed by: Vargas Sanchez M.D. 08/28/2021 11:03 AM
[2021-08-28] MEDS ORDERED: bisacodyL 10 MG SUPP PR PRN (11:16)
[2021-08-28] MEDS ORDERED: MAGNESIUM HYDROXIDE SUSP 30 ML UDC PO PRN (11:16)
[2021-08-28] MEDS ORDERED: ACETAMINOPHEN 325 MG TAB PO PRN ×2 (11:16)
--- NOTE | 2021-08-28 13:00 | CT Scan Report ---
CT chest diagnostic wo con CLINICAL HISTORY: Hypoxemia, pneumonia on prior CT TECHNIQUE: Multidetector row helical CT of the chest was performed. Coronal and sagittal reformations were obtained. Automated dose lowering techniques and/or adjustment according to patient size were u tilized for this exam. CT DOSE: 412.02 mGy.cm Comparison: Comparison is made to CT chest 12/16/2019 and chest radiograph 08/28/2021 FINDINGS: Lungs and pleura: There is a small to moderate right pleural effusion with underlying atelectasis. Gr oundglass and consolidation is noted right. Heart and pericardium: Cardiomegaly is seen with biatrial enlargement. Vessels: Severe atherosclerotic changes in the aorta and coronary arteries. There is dilation of the distal aortic arch and descending aorta, descending aorta measures up to 43 mm in diameter. Mediastinum and colin: Mediastinal lymphadenopathy is seen with a right lower paratracheal node measur ing up to 15 mm in short axis. Chest wall and lower neck: Unremarkable. Abdomen: Unremarkable. Bones: Degenerative changes in the thoracic spine. IMPRESSION: Small moderate right pleural effusion with atelectasis and superimposed findings of pneumonia/aspirat ion. Lymphadenopathy is seen which is likely reactive. 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 ACT 112: Negative or not required by law. Electronically signed by: Vargas Sanchez M.D. 08/28/2021 12:58 PM
[2021-08-28] MEDS ORDERED: WARFARIN SOD 2 MG TAB PO SCH (16:00)
--- NOTE | 2021-08-28 17:46 | Electrocardiogram Report ---
Test Reason : Blood Pressure : / mmHG Vent. Rate : 109 BPM Atrial Rate : 110 BPM P-R Int : 000 ms QRS Dur : 134 ms QT Int : 330 ms P-R-T Axes : 000 047 044 degrees QTc Int : 444 ms Atrial fibrillation with rapid ventricular response Non-specific intra-ventricular conduction block Nonspecific T wave abnormality Abnormal ECG When compared with ECG of 05-APR-2021 03:17, Atrial fibrillation has replaced Sinus rhythm Confirmed by Gene Lunsford ([id number]) on 08/28/2021 5:45:57 PM Referred By: [facility] Confirmed By:Gene Lunsford
[2021-08-28] MEDS ORDERED: ATORVASTATIN 40 MG TAB PO SCH (21:00)
[2021-08-28] MEDS ORDERED: TAMSULOSIN HCL 0.4 MG CAP PO SCH (21:00)
[2021-08-28] MEDS: FAMOTIDINE 20 MG TAB PO SCH (21:13)
[2021-08-28] MEDS: DOCUSATE SODIUM 100 MG CAP PO SCH (21:14)
[2021-08-29] MEDS: PIPERACILLIN/TAZOBACTAM 3.375 GM in DEXTROSE 5% 100 ML IV SCH (02:01)
[2021-08-29] MEDS ORDERED: METOPROLOL SUCC 25MG EXT REL TAB PO SCH (09:00)
[2021-08-29] MEDS ORDERED: ASPIRIN 81 MG ECTAB PO SCH (09:00)
[2021-08-29] MEDS ORDERED: AMIODARONE 200 MG TAB PO SCH (09:00)
[2021-08-29] MEDS: DOCUSATE SODIUM 100 MG CAP PO SCH (09:02)
[2021-08-29] MEDS: FAMOTIDINE 20 MG TAB PO SCH (09:02)
[2021-08-29 09:12] LABS: Hematocrit (blood only) 33.2 % (42-52); Hemoglobin 11.1 g/dL (14.0-18.0); Mean Corpuscular Hemoglobin 28.3 pg (25-34); Mean Corpuscular Hgb Conc 33.4 g/dL (32-36); Mean Corpuscular Volume 84.7 fL (80-100); Mean Platelet Volume 9.8 fL (7.4-10.4); Platelet Count 140 K/uL (130-400); RDW Coefficient of Variation 16.3 % (11.5-14.5); RDW Standard Deviation 50.6 fL (36.4-46.3); Red Blood Count 3.92 M/uL (4.7-6.1); White Blood Count 10.27 K/uL (4.8-10.8)
[2021-08-29 09:22] LABS: BUN Creatinine Ratio 18.9 (10-20); Calcium 7.3 mg/dl (8.5-10.1); Creatinine Clr Calc Pharmacy 42.6 ml/min; Est GFR (Non-African American) 52.6 ml/min; Magnesium 2.1 mg/dl (1.7-2.4); Potassium 3.5 mmol/L (3.5-5.1)
[2021-08-29] MEDS ORDERED: DOXYCYCLINE HYCLATE 100 MG CAP PO STA (12:13)
[2021-08-29] MEDS ORDERED: AMOXICILLIN/CLAVULANATE 875 MG TAB PO ONE (12:13)
--- NOTE | 2021-08-29 16:19 | Discharge Summary ---
Date of Service August 29, 2021 Admission HPI Per Admitting Provider 81yo M w/ hx of CVA, atrial fibrillation, chronic diastolic CHF, COPD, and BPH who presents with low blood pressure, hypoxemia, and confusion. Per the ER report, he was found confused and hypoxemic in his [place] [facility] room. EMS was called, and reportedly, his BP was as low as 60/40. He received a liter of fluids, and in the ER, his BP was 95/60. On 2L NC, his O2 has been >90%. He is a poor historian, and he cannot really recall the events leading to his admission. He reports that today he felt "a little tired," but then states that he also felt that way for at least several days (unclear of when the onset was). He notes that he coughs sometimes, but reports he has coughed "since he started smoking" which incidentally was over 50 years ago. He reports no sputum production or shortness of breath. He does note 5 episodes of emesis yesterday after breakfast. He denies abdominal pain or any current nausea or vomiting. He reports he just vomited the breakfast he had just eaten and denies any coffee ground emesis or hematemesis. He denies any fever, chills, denies any vision change or headache, denies urinary symptoms of burning or pain. He has been wearing a "[place] cath" for at least the last few hours, but he is not sure. No rashes, no ulcers, no skin breakdown per his report. No new joint aches or pains. Principal Diagnosis Aspiration pneumonia vs. UTI Discharge Exam Constitutional WD/WN, vitals as above Eyes EOM intact bilaterally; no conjunctival abnormality ENMT external ear and nose normal, oropharynx normal Neck trachea midline, no thyromegaly normal visual inspection Respiratory normal respiratory effort, lungs clear to auscultation no respiratory distress Cardiovascular Rate/Rhythm: regular rate and + irregularly irregular Extremities: no edema Gastrointestinal (Abdomen) Inspection/Auscultation: abdomen normal to inspection; abdomen not distended Musculoskeletal no cyanosis or clubbing, extremities motor strength 5/5 Skin no rashes, warm and dry + mottling (Venous stasis changes in both legs; no ulcers) Neurologic moves all extremities and awake Psychiatric Orientation: alert, oriented to person and cooperative Genitourinary + penis abnormality ([place] cath in place) Discharge Data Allergies Allergy/AdvReac Type Severity Reaction Status Date / Time guaifenesin AdvReac Intermediate GETS Verified 08/25/21 08:11 REALLY SICK FROM MUCINEX Consultations 08/26/21 18:26 ED Decision to Admit Stat 08/26/21 22:44 Consult Cigarette Carton Sealer Routine Ordered Studies 08/26/21 16:23 CT abd pelvis wo con Stat 08/28/21 11:04 CT chest diagnostic wo con Routine Hospital Course (1) Hypotension: BP as low as 60/40 per report at [facility]. Responded to IV fluids, but then dropped lower requiring transient pressors in the ICU on 08/27. BP stable on 08/28, and he was transferred out of the ICU on 08/28. - Presumptive sepsis source is pneumonia vs. UTI - CT a/p on admission showed likely LLL pneumonia * Continue Zosyn with thought for possible aspiration pneumonia from vomiting prior to presentation -> Switch to Augmentin on dishcarge. * Chest CT ordered to better view entire lung - Pneumonia pretty mild. * MRSA swab positive; added linezolid on admission. * RN HEDIS consulted - FEES completed on 08/29 with recs as below. - Left stent exchange on 08/[address] Quiros. Had been started on cephalexin prophylaxis, but this would not cover his usual urine cx. Pseudomonas * Stent is in good position on CT a/p on admission. Do not feel urology consult is needed at this time. * Bladder scans Qshift ordered with request to notify provider for results > 150 mL -> Scan generally was ~150 mL. No straight cath or Byrd placed. * Urine cx grew Proteus - Follow blood cultures also drawn in the ER - Negative as of discharge. - Discharge on doxycycline & Augmentin for 4 more days for presumed aspiration pneumonia vs. UTI. His MRSA nares swab was positive, so I am covering for MRSA as well, but I truthfully do not think this was MRSA pneumonia. (2) Acute hypoxemic respiratory failure: Likely due to pneumonia. - Supplement O2 as needed for SpO2 >=90% -> Back to room air by discharge. (3) Acute renal failure superimposed on stage 3 chronic kidney disease: Baseline Cr ~1.3. Cr was 2.0 on admission. Back to baseline by 08/28 after IV fluids. - Bladder scans to r/o urinary retention. CT a/p shows no hydronephrosis, so t his would seem to be less likely. Not consistently > 150 mL. Left [place] cath in place. (4) BPH (benign prostatic hypertrophy): Follows with [facility]. - Continue home tamsulosin - Hold doxazosin for now given duplicate therapy (unclear if med rec was done correctly) and hypotension. - Bladder scans as above (5) Paroxysmal A-fib: Per prior notes, is on warfarin 2 mg PO daily. - Continue home amiodarone & metoprolol - Continue home warfarin - INR 2.0 today. (6) CHF with left ventricular diastolic dysfunction, NYHA class 2: Appears euvolemic to me on exam today. - Held home Lasix while admitted. Return to dosing on discharge. (7) CAD (coronary artery disease): Hx of 1vCABG. - Continue home ASA, beta-carrington, statin (8) Cerebrovascular disease: In 2019. - Continue home ASA, statin as above (9) DVT prophylaxis: On warfarin for afib. INR therapeutic. Total Time Total Time Spent Total Time Spent (In Minutes): 35 Discharge Plan Discharge Items Patient Disposition: Transfer Correction Fac Reason For Visit: HYPOTENSION, CONCERN FOR PNEUMONIA VS BLADDER Discharge Diagnosis: Likely aspiration pneumonia vs. post-procedure UTI Condition on Discharge: Fair Activity: Resume your previous activity Non-emergency contact: Primary Care Provider Call non-emergency contact if: your symptoms worsen Follow-up/Referrals: [facility] [Primary Care Provider] - Diet: Regular Diet Texture: Mechanical soft (ground) Addtl Attending Provider Instructions: Mr. Hernandez was admitted with possible aspiration pneumonia vs. UTI. He had a low BP on admission that was thought to be due to sepsis and even needed some pressors for a short duration. Overall, he responded well and was back to baseline oxygen and BP by discharge. He will be discharged on 4 additional days of antibiotics: doxycycline and Augmentin. The doxycycline is for his MRSA swab being positive, though I think MRSA pneumonia is quite unlikely. The Augmentin will cover aspiration pneumonia as well as the urine cx which grew Proteus mirabilis. RN HEDIS evaluated the patient, and he underwent a FEES on 08/29. RN HEDIS recommended [id number] diet, thin liquids, no mixed consistencies, and usual aspiration precautions. Warfarin was held in the ICU, though I don't know exactly why. His home warfarin 2 mg PO daily was restarted on transfer out of the ICU. His INR has been 2.0 for 2 days now. He would probably need a recheck near the end of the week. Pending Studies at Discharge: No Stand-Alone Forms: My [facility] Skilled Items Patient informed of condition?: Yes DNR: No (Conditional code) Discharge Level of Care: Skilled Communicable Disease: Yes (MRSA nares positive) Discharge Prognosis: Stable Lines: None Urinary Catheter: Yes ([place] cath only) Medications and DC Order Prescriptions: New warfarin 2 mg Tablet 2 mg PO DAILY@1600 Qty: 0 RF: 0 doxycycline hyclate 100 mg capsule 100 mg PO BID Qty: 8 RF: 0 amoxicillin-pot clavulanate 875-125 mg tablet 1 tab PO BID Qty: 8 RF: 0 Continued multivitamin Tablet 1 tab PO QPM RF: 0 magnesium hydroxide [Milk of Magnesia] 400 mg/5 mL Suspension 30 ml PO DAILY PRN (Reason: Constipation) RF: 0 bisacodyl [Dulcolax (bisacodyl)] 10 mg Suppository 10 mg OK UD PRN (Reason: Constipation) RF: 0 tamsulosin 0.4 mg capsule 0.4 mg PO HS Qty: 30 RF: 0 acetaminophen 325 mg Tablet 650 mg PO Q6 PRN (Reason: Fever) RF: 0 benzonatate 100 mg Capsule 100 mg PO TID RF: 0 Fleet Enema 19-7 gram/118 mL Enema 118 ml OK DAILY PRN (Reason: Constipation) RF: 0 polyethylene glycol 3350 [Miralax] 17 gram/dose Powder 17 g PO DAILY RF: 0 bupropion HCl [Wellbutrin XL] 150 mg Tablet Extended Release 24 Hr 150 mg PO QAM RF: 0 atorvastatin 40 mg tablet 40 mg PO QPM RF: 0 acetaminophen 325 mg tablet 650 mg PO Q8 PRN (Reason: Pain) RF: 0 phenazopyridine [Pyridium] 200 mg tablet 200 mg PO Q8H PRN (Reason: pain) Qty: 10 RF: 0 amiodarone 200 mg tablet 200 mg PO QAM Qty: 30 RF: 0 aspirin 81 mg Tablet,Delayed Release (Dr/Ec) 81 mg PO DAILY Qty: 30 RF: 0 famotidine 20 mg tablet 20 mg PO BID Qty: 60 RF: 0 furosemide 20 mg tablet 20 mg PO MOWEFR@0900 Qty: 20 RF: 0 metoprolol succinate 25 mg Tablet Extended Release 24 Hr 12.5 mg PO QAM Qty: 30 RF: 0 docusate sodium 100 mg Tablet 100 mg PO BID Qty: 60 RF: 0 Discontinued cephalexin 500 mg capsule 500 mg PO BID 3 Days Qty: 6 RF: 0 doxazosin 1 mg Tablet 1 mg PO QPM Qty: 30 RF: 0 Discharge Orders: Discharge Order (Routine); Ordered 08/29/21 Ordered By: Brendon Phillips Admission Data Admit Date/Time: 08/26/21 22:48 Attending Provider: Brendon Phillips Admit Provider: Rigoberto Carrillo Primary Care Provider: Ricky Moulton Other Providers: Ricky Moulton ; Brendon Phillips ; Kenneth Marshall Other Interventions: Discharge Summary Assessment (RN) Last Done: 08/29/21 14:23 Coding Level of Care Code D/C DAY MANAGEMENT >30 MINS Diagnoses Hypotension I95.9 Acute hypoxemic respiratory failure J96.01 Acute renal failure superimposed on stage 3 chronic kidney disease N17.9; N18.3 Acute renal failure type: unspecified BPH (benign prostatic hypertrophy) N40.0 Paroxysmal A-fib I48.0 CHF with left ventricular diastolic dysfunction, NYHA class 2 I50.30 CAD (coronary artery disease) I25.10 Cerebrovascular disease I67.9 DVT prophylaxis Z29.9
== END 2021-08-29 17:49 | DRG 871 ==
LOC: ED 15:29 → 1E 22:48 → SUATTDRO 22:48 → 1E 23:07 → 3W 08-28 09:43

== ENCOUNTER 2021-09-03 09:33 | Inpatient (IN) ==
[2021-09-03] MEDS ORDERED: SODIUM CHLORIDE 0.9% 1000ML 1,000 ML IV ONE (10:05)
--- NOTE | 2021-09-03 10:12 | Emergency Department Note ---
History of Present Illness General Chief complaint: Flank Pain Time Seen by Provider: 09/03/21 09:57 Source: patient, RN notes reviewed and old records reviewed Mode of arrival: EMS Limitations: no limitations History of Present Illness Maximum Pain Intensity: 7 This Patient is an 81-year-old male who comes in after having right flank pain and hematuria. When I asked the patient how he is doing he says "no good". He said that blood started in the catheter last day or so and has had right pain off and on for couple days. He does have some episodes of vomiting after eating but has not had any since yesterday. Denies chest pain or shortness of breath he does have an occasional cough. He has been admitted to the hospital several times recently with kidney related problems he has a history of stents. He has been septic before he is on blood thinners. He is also had aspiration pneumonia and UTI secondary to Proteus. He has chronic A. fib and is on anticoagulation for that and history of CVA and cardiac disease Home Medications Medication Instructions Recorded Confirmed Type amiodarone 200 mg tablet 200 mg PO QAM #30 tab 04/20/21 08/26/21 Rx aspirin 81 mg tablet,delayed 81 mg PO DAILY #30 tab 04/20/21 08/26/21 Rx release docusate sodium 100 mg tablet 100 mg PO BID #60 tab 04/20/21 08/26/21 Rx famotidine 20 mg tablet 20 mg PO BID #60 tab 04/20/21 08/26/21 Rx furosemide 20 mg tablet 20 mg PO MOWEFR@0900 #20 tab 04/20/21 08/26/21 Rx metoprolol succinate 25 mg 12.5 mg PO QAM #30 tab 04/20/21 08/26/21 Rx tablet,extended release 24 hr bisacodyl 10 mg rectal suppository 10 mg AZ UD PRN 05/18/21 08/26/21 History (Dulcolax (bisacodyl)) magnesium hydroxide 400 mg/5 mL 30 ml PO DAILY PRN 05/18/21 08/26/21 History oral suspension (Milk of Magnesia) multivitamin 1 tab PO QPM 05/18/21 08/26/21 History tamsulosin 0.4 mg capsule 0.4 mg PO HS #30 cap 05/23/21 08/26/21 Rx acetaminophen 325 mg tablet 650 mg PO Q6 PRN 08/23/21 08/26/21 History acetaminophen 325 mg tablet 650 mg PO Q8 PRN 08/23/21 08/26/21 History atorvastatin 40 mg tablet 40 mg PO QPM 08/23/21 08/26/21 History benzonatate 100 mg capsule 100 mg PO TID 08/23/21 08/26/21 History bupropion HCl 150 mg 24 hr tablet, 150 mg PO QAM 08/23/21 08/26/21 History extended release (Wellbutrin XL) polyethylene glycol 3350 17 17 g PO DAILY 08/23/21 08/26/21 History gram/dose oral powder (Miralax) sodium phosphates 19 gram-7 118 ml [place] DAILY PRN 08/23/21 08/26/21 History gram/118 mL enema (Fleet Enema) phenazopyridine 200 mg tablet 200 mg PO Q8H PRN #10 tab 08/25/21 08/26/21 Rx (Pyridium) amoxicillin 875 mg-potassium 1 tab PO BID #8 tab 08/29/21 Rx clavulanate 125 mg tablet doxycycline hyclate 100 mg capsule 100 mg PO BID #8 cap 08/29/21 Rx warfarin 2 mg tablet 2 mg PO DAILY@1600 #0 tab 08/29/21 Rx Allergies Allergy/AdvReac Type Severity Reaction Status Date / Time guaifenesin AdvReac Intermediate GETS Verified 08/25/21 08:11 REALLY SICK FROM MUCINEX Past Med/Surg History Medical History A-fib On Coumadin Anxiety Aortic aneurysm S/p thoracic aneurysm repair 2016 Per 04/04/21 abdomen/pelvis CT " There is no evidence for focal aneurysmal dilatation of the abdominal aorta. 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 per 04/20/21 discharge summary On ASA and Coumadin History of TIA prior to CVA Chronic diastolic (congestive) heart failure EF 55-60% Chronic kidney disease stage 3 COPD (chronic obstructive pulmonary disease) Dyslipidemia GERD (gastroesophageal reflux disease) History of basal cell carcinoma of skin History of COVID-19 04/04/21 per records History of sepsis Admitted Apr 2021 - dx'ed with complicated UTI and sepsis History of squamous cell carcinoma of skin HTN (hypertension) Impaired gait and mobility MRSA nasal colonization Neuropathy Pneumonia History of Covid pneumonia- dx'ed Mar/Apr 2021- treated with steroids Venous insufficiency Surgical History H/O arthroscopic knee surgery H/O thoracic aortic aneurysm repair History of aortic valve [place] 11/22/2015 - [place] [place] No mention of AVR in recent cardio records History of cataract surgery bilateral History of cystoscopy (04/04/21) with retrograde and left uretral stent placed and stent exchanges Knee joint replacement status Right S/P CABG x 1 Family History Other Diabetes Hypertension Social History Smoking Status: Former smoker Tobacco Type: Cigarettes Cigarettes Per Day: Former smoker; Second Hand Exposure: No; Hx Alcohol Use: No Hx Substance Use: No Preferred Language: Yakut Communication Ability: Effective Visual Impairment: Limited Hearing Ability: Hard of Hearing Receiving Specialist Required: No Beliefs That Will Affect Care: None marital status: Unknown Current Living Situation: [facility] Current Living Situation Comment: [facility] current occupational status: retired How many Children do You have: 2 Feels Safe at Home: Yes Review of Systems A total of 10 systems reviewed and were otherwise negative Physical Exam Vital Signs Vital Signs - 24 hr 09/03/21 09:45 09/03/21 10:04 09/03/21 10:16 Temperature 36.3 C L Temperature Source Oral Pulse Rate 106 H Pulse Rate [Finger] 106 H 99 H Respiratory Rate 18 16 Blood Pressure 105/59 L Blood Pressure [Left Arm] 105/59 L 124/68 Blood Pressure Mean 74 Blood Pressure Mean [Left Arm] 74 86 Pulse Oximetry 92 92 91 Oxygen Delivery Method Room Air Room Air Room Air Sepsis Recent Fever Within 48 Hours No Sepsis New/Unexplained Change in Mental Status No Sepsis Action Taken by Nursing No Action Required 09/03/21 11:58 09/03/21 13:49 Temperature Temperature Source Pulse Rate Pulse Rate [Finger] 106 H 102 H Respiratory Rate 18 16 Blood Pressure Blood Pressure [Left Arm] 105/69 88/62 L Blood Pressure Mean Blood Pressure Mean [Left Arm] 81 70 Pulse Oximetry 94 95 Oxygen Delivery Method Room Air Sepsis Recent Fever Within 48 Hours Sepsis New/Unexplained Change in Mental Status Sepsis Action Taken by Nursing General: Chronically ill-appearing older male who appears in no acute distress, breathing comfortably on room air. Normal speech HEENT: Normal cephalic atraumatic. Pupils are equal round and reactive to light. Extraocular movements are intact. Oropharynx is pink with moist mucous membranes. No swelling of the mouth lips or tongue. Neck: Supple with a midline trachea. No meningeal signs or stiffness, no JVD or bruits. No Stridor. Chest: Clear to auscultation bilaterally. No wheezes or rhonchi. No increased work of breathing. Heart: Regular rate and rhythm without murmurs or gallops. Abdomen: Soft nontender, nondistended without rebound guarding or rigidity. There is bloody/dark urine seen in the Byrd catheter bag and he has a condom catheter on Extremities: No edema. No calf tenderness or assymetry. He has chronic discoloration of the shins bilaterally. Spine/Back. Non tender to palpation. No CVA tenderness Skin: Good turgor without rashes. Neurologic exam: Cranial nerves two through 12 are intact. Motor and sensation are intact and symmetrical throughout. Course Administered Medications Discontinued Medications Sodium Chloride (Nss 1000ml) 1,000 mls @ 999 mls/hr IV .Q1H1M ONE Stop: 09/03/21 11:05 Last Infusion: 09/03/21 11:57 Dose: 0 mls/hr Documented by: [id number] Admin: 09/03/21 10:15 Dose: 999 mls/hr Documented by: [id number] Cefepime HCl (Maxipime) 20 mls @ 5 mls/min IV NOW ONE Stop: 09/03/21 10:18 Last Admin: 09/03/21 11:43 Dose: 5 mls/min Documented by: [id number] Medical Decision Making Differential Diagnosis Urinary tract infection, sepsis, obstructive uropathy, kidney stones, anemia, electrolyte or metabolic abnormality, arrhythmia or abdominal process, COVID Medical Records Attestation: I reviewed the patient's medical records. Home Medications Current Medication List: was personally reviewed by me Laboratory Data Attestation: I reviewed the patient's lab results. Result diagrams: 09/03/21 09:54 09/03/21 09:54 Lab Results 09/03/21 09/03/21 09/03/21 Range/Units 09:54 09:54 09:54 WBC 14.16 H (4.8-10.8) K/uL RBC 4.05 L (4.7-6.1) M/uL Hgb 11.2 L (14.0-18.0) g/dL Hct 33.8 L (42-52) % MCV 83.5 (80-100) fL MCH 27.7 (25-34) pg MCHC 33.1 (32-36) g/dL RDW Std Deviation 51.5 H (36.4-46.3) fL RDW Coeff of Trinh 16.9 H (11.5-14.5) % Plt Count 146 (130-400) K/uL MPV 9.6 (7.4-10.4) fL Immature Gran % (Auto) 0.4 % Neut % (Auto) 81.1 % Lymph % (Auto) 7.0 % [place] % (Auto) 11.1 % Eos % (Auto) 0.3 % Baso % (Auto) 0.1 % Neut # (Auto) 11.50 H (1.4-6.5) K/uL Lymph # (Auto) 0.99 L (1.2-3.4) K/uL [place] # (Auto) 1.57 H (0.11-0.59) K/uL Eos # (Auto) 0.04 (0-0.5) K/uL Baso # (Auto) 0.01 (0-0.2) K/uL Immature Gran # (Auto) 0.05 H (0.00-0.02) K/uL Anisocytosis Present Echinocytes 1+ PT 17.2 H (9.0-12.0) Seconds INR 1.7 H (0.9-1.1) APTT 33.6 H (21.0-31.0) Seconds PTT Ratio 1.2 Sodium 140 (136-145) mmol/L Potassium 3.6 (3.5-5.1) mmol/L Chloride 107 (98-107) mmol/L Carbon Dioxide 27 (21-32) mmol/L Anion Gap 6 (3-11) BUN 21 (6-23) mg/dl Creatinine 1.27 (0.6-1.4) mg/dl Est Cr Clr Drug Dosing 49.4 ml/min Est GFR ( Amer) 61.0 ml/min Est GFR (Non-Af Amer) 52.6 ml/min BUN/Creatinine Ratio 16.5 (10-20) Glucose 81 (70-99(Fasting)) mg/dl Lactate (0.4-2.0) mmol/L Calcium 7.6 L (8.5-10.1) mg/dl Magnesium 1.8 (1.7-2.4) mg/dl Total Bilirubin 1.1 H (0.2-1.0) mg/dl AST 32 (13-39) U/L ALT 31 (7-52) U/L Alkaline Phosphatase 111 H (34-104) U/L Troponin I High Sens 15.1 D (0-20) pg/ml Total Protein 5.5 L (6.0-8.3) gm/dl Albumin 2.4 L (3.4-5.0) gm/dl Globulin 3.1 (2.5-4.0) gm/dl Albumin/Globulin Ratio 0.8 L (0.9-2) Procalcitonin (0-0.5) ng/ml Urine Color Urine Appearance (Clear) Urine pH (4.5-7.5) Ur Specific [place] (1.000-1.030) Urine Protein (Negative) Urine Glucose (UA) (Negative) Urine Ketones (Negative) Urine Blood (Negative) Urine Nitrite (Negative) Urine Bilirubin (Negative) Urine Urobilinogen (Negative) Ur Leukocyte Esterase (Negative) Urine RBC (0-4) /hpf Urine WBC (0-5) /hpf Ur Epithelial Cells (0-5) /lpf Urine Bacteria (Negative) Urine Mucus (None Prsent) SARS-CoV-2, RNA, NAAT (NEGATIVE) 09/03/21 09/03/21 09/03/21 Range/Units 09:54 11:08 11:50 WBC (4.8-10.8) K/uL RBC (4.7-6.1) M/uL Hgb (14.0-18.0) g/dL Hct (42-52) % MCV (80-100) fL MCH (25-34) pg MCHC (32-36) g/dL RDW Std Deviation (36.4-46.3) fL RDW Coeff of Trinh (11.5-14.5) % Plt Count (130-400) K/uL MPV (7.4-10.4) fL Immature Gran % (Auto) % Neut % (Auto) % Lymph % (Auto) % [place] % (Auto) % Eos % (Auto) % Baso % (Auto) % Neut # (Auto) (1.4-6.5) K/uL Lymph # (Auto) (1.2-3.4) K/uL [place] # (Auto) (0.11-0.59) K/uL Eos # (Auto) (0-0.5) K/uL Baso # (Auto) (0-0.2) K/uL Immature Gran # (Auto) (0.00-0.02) K/uL Anisocytosis Echinocytes PT (9.0-12.0) Seconds INR (0.9-1.1) APTT (21.0-31.0) Seconds PTT Ratio Sodium (136-145) mmol/L Potassium (3.5-5.1) mmol/L Chloride (98-107) mmol/L Carbon Dioxide (21-32) mmol/L Anion Gap (3-11) BUN (6-23) mg/dl Creatinine (0.6-1.4) mg/dl Est Cr Clr Drug Dosing ml/min Est GFR ( Amer) ml/min Est GFR (Non-Af Amer) ml/min BUN/Creatinine Ratio (10-20) Glucose (70-99(Fasting)) mg/dl Lactate 1.0 (0.4-2.0) mmol/L Calcium (8.5-10.1) mg/dl Magnesium (1.7-2.4) mg/dl Total Bilirubin (0.2-1.0) mg/dl AST (13-39) U/L ALT (7-52) U/L Alkaline Phosphatase (34-104) U/L Troponin I High Sens (0-20) pg/ml Total Protein (6.0-8.3) gm/dl Albumin (3.4-5.0) gm/dl Globulin (2.5-4.0) gm/dl Albumin/Globulin Ratio (0.9-2) Procalcitonin 0.29 (0-0.5) ng/ml Urine Color Brown Urine Appearance Cloudy A (Clear) Urine pH 6.0 (4.5-7.5) Ur Specific [place] >= 1.030 (1.000-1.030) Urine Protein 3+ H (Negative) Urine Glucose (UA) Negative (Negative) Urine Ketones Trace H (Negative) Urine Blood 3+ H (Negative) Urine Nitrite Negative (Negative) Urine Bilirubin 2+ H (Negative) Urine Urobilinogen Negative (Negative) Ur Leukocyte Esterase 1+ H (Negative) Urine RBC >30 H (0-4) /hpf Urine WBC >30 H (0-5) /hpf Ur Epithelial Cells 0-5 (0-5) /lpf Urine Bacteria 2+ H (Negative) Urine Mucus Present A (None Prsent) SARS-CoV-2, RNA, NAAT (NEGATIVE) 09/03/21 Range/Units 12:32 WBC (4.8-10.8) K/uL RBC (4.7-6.1) M/uL Hgb (14.0-18.0) g/dL Hct (42-52) % MCV (80-100) fL MCH (25-34) pg MCHC (32-36) g/dL RDW Std Deviation (36.4-46.3) fL RDW Coeff of Trinh (11.5-14.5) % Plt Count (130-400) K/uL MPV (7.4-10.4) fL Immature Gran % (Auto) % Neut % (Auto) % Lymph % (Auto) % [place] % (Auto) % Eos % (Auto) % Baso % (Auto) % Neut # (Auto) (1.4-6.5) K/uL Lymph # (Auto) (1.2-3.4) K/uL [place] # (Auto) (0.11-0.59) K/uL Eos # (Auto) (0-0.5) K/uL Baso # (Auto) (0-0.2) K/uL Immature Gran # (Auto) (0.00-0.02) K/uL Anisocytosis Echinocytes PT (9.0-12.0) Seconds INR (0.9-1.1) APTT (21.0-31.0) Seconds PTT Ratio Sodium (136-145) mmol/L Potassium (3.5-5.1) mmol/L Chloride (98-107) mmol/L Carbon Dioxide (21-32) mmol/L Anion Gap (3-11) BUN (6-23) mg/dl Creatinine (0.6-1.4) mg/dl Est Cr Clr Drug Dosing ml/min Est GFR ( Amer) ml/min Est GFR (Non-Af Amer) ml/min BUN/Creatinine Ratio (10-20) Glucose (70-99(Fasting)) mg/dl Lactate (0.4-2.0) mmol/L Calcium (8.5-10.1) mg/dl Magnesium (1.7-2.4) mg/dl Total Bilirubin (0.2-1.0) mg/dl AST (13-39) U/L ALT (7-52) U/L Alkaline Phosphatase (34-104) U/L Troponin I High Sens (0-20) pg/ml Total Protein (6.0-8.3) gm/dl Albumin (3.4-5.0) gm/dl Globulin (2.5-4.0) gm/dl Albumin/Globulin Ratio (0.9-2) Procalcitonin (0-0.5) ng/ml Urine Color Urine Appearance (Clear) Urine pH (4.5-7.5) Ur Specific [place] (1.000-1.030) Urine Protein (Negative) Urine Glucose (UA) (Negative) Urine Ketones (Negative) Urine Blood (Negative) Urine Nitrite (Negative) Urine Bilirubin (Negative) Urine Urobilinogen (Negative) Ur Leukocyte Esterase (Negative) Urine RBC (0-4) /hpf Urine WBC (0-5) /hpf Ur Epithelial Cells (0-5) /lpf Urine Bacteria (Negative) Urine Mucus (None Prsent) SARS-CoV-2, RNA, NAAT NEGATIVE (NEGATIVE) Imaging Data Attestation: I personally reviewed and interpreted this imaging study as follows: My Impression: Chest x-ray- there is a large right pleural effusion Radiologist's Impression: Abdomen/Pelvis CT 09/03/21 10:04 CT abd pelvis wo con CLINICAL HISTORY: rt side pain, eval for obst uropathy TECHNIQUE: Helical axial images of the abdomen and pelvis were obtained. Automated dose lowering techniques and/or adjustment according to patient size were utilized for this exam. This exam was performed without intravenous contrast. COMPARISON: Comparison is made to CT abdomen pelvis 08/26/2021 FINDINGS: Exam is limited by streak artifact. This is likely due to patient positioning outside the field of view Lower chest: For findings above the diaphragm, please see CT chest performed same day. Liver: Unremarkable. No focal lesions are seen. Gallbladder and biliary tree: Distention of the gallbladder is seen, similar in extent to prior exam. No intra- or extrahepatic biliary ductal dilation. Pancreas: Unremarkable, no focal lesions. Spleen: Unremarkable. Adrenals: Unremarkable. Kidneys and ureters: A left nephroureteral stent is seen. Bladder: Limited evaluation due to underdistention. Reproductive organs: Prostatic calcifications are seen which may represent prior hemorrhage or granulomatous disease. Bowel: Incidental note is made of a particular. A hiatal hernia is noted. No bowel obstruction is seen. Lymph nodes Retroperitoneal: Unremarkable. Mesenteric: Unremarkable. Pelvic: Unremarkable. Peritoneum: Normal. Vessels: Atherosclerotic calcifications are seen. Abdominal wall: Unremarkable. Bones: Degenerative changes in the visualized spine. IMPRESSION: 1. No acute abnormalities and in particular no evidence of no evidence of right-sided obstructive uropathy. A left nephroureteral stent is seen without evidence of hydronephrosis. 2. Extensive atherosclerotic disease. ACT 112: Negative or not required by law. Electronically signed by: Vargas Sanchez M.D. 09/03/2021 12:11 PM Chest X-Ray 09/03/21 10:04 XR chest 1V portable CLINICAL HISTORY: SEPSIS TECHNIQUE: Single frontal radiograph of the chest was obtained. Comparison: Comparison is made to chest radiograph 08/28/2021 FINDINGS: Median sternotomy wires are unchanged. The cardiomediastinal silhouette is stable. Calcified aortic arch is seen. Right lower lung airspace opacity is seen. Interval development of a moderate right pleural effusion. IMPRESSION: 1. Interval development of a moderate right pleural effusion. 2. Right airspace opacity is increased from prior exam and likely reflects atelectasis with or without superimposed aspiration/pneumonia. ACT 112: Negative or not required by law. Electronically signed by: Vargas Sanchez M.D. 09/03/2021 10:[address] 09/03/21 11:15 CT chest diagnostic wo con CLINICAL HISTORY: pleural eff TECHNIQUE: Multidetector row helical CT of the chest was performed. Coronal and sagittal reformations were obtained. Automated dose lowering techniques and/or adjustment according to patient size were utilized for this exam. CT DOSE: 513.14 mGy.cm Comparison: Comparison is made to CT chest 08/28/2021 and chest radiograph 09/03/2021 FINDINGS: Lungs and pleura: Interval enlargement in right pleural effusion which is now moderate in size. There is a small left pleural effusion which is also slightly increased from prior exam. Associated atelectasis is noted. No definite consolidation is seen, previously noted groundglass opacities are not seen on today's exam. Mild bronchiectasis emphysematous changes are again seen. Heart and pericardium: Cardiomegaly is seen with biatrial enlargement. Vessels: Severe atherosclerotic changes in the aorta and coronary arteries. The descending aorta is enlarged measuring 46 mm in diameter, stable. Mediastinum and colin: Multiple lymph nodes are seen, decreased in size from prior exam, measuring up to 12 mm in short axis in the right lower paratracheal station. A subcarinal lymph node measures 12 mm also. Chest wall and lower neck: Unremarkable. Abdomen: For findings below the diaphragm, please refer to CT of the abdomen dated the same. Bones: Degenerative changes in the thoracic spine. IMPRESSION: 1. Interval enlargement of moderate right and small left pleural effusions with associated atelectasis. No definite consolidation is seen within the limits of noncontrast technique, previously noted groundglass opacities in the right lung are not seen on today's exam. Previously noted lymphadenopathy is less conspicuous on today's exam which also favors improvement in infectious/inflammatory process. 2. Cardiomegaly and descending aortic aneurysm, unchanged from prior exam. ACT 112: Negative or not required by law. Electronically signed by: Vargas Sanchez M.D. 09/03/2021 11:59 AM ECG Data Attestation: I personally reviewed and interpreted this ECG as follows: Indication: + weakness Rate (beats per minute): 104 Rhythm: + sinus tachycardia and + other (Poor baseline) ECG Intervals/blocks: + IVCD, + Normal QT and + Normal [place] ECG [place]: + Normal ECG ST segments: + Nonspecific ST abnormalities ECG Findings: + Poor R wave progression Comparison ECG Date: from (08/26/21) Change: the following changes noted (Sinus tachycardia has replaced A. fib) MDM Narrative This patient comes in as described above. He was placed in room A4. He is here for treatment evaluation of right-sided pain and hematuria he has a history of ongoing urinary issues with history of sepsis and obstructive uropathy. Although he is afebrile here given his history, I am concerned for sepsis I did a CAT scan to evaluate for possible obstructive uropathy, urinalysis and culture and a full sepsis work-up he was given IV fluid bolus and we gave him empiric antibiotics with cefepime based on his previous cultures and consultation with the ED pharmacist. I also did discuss levels of care with the patient and he has been a DO NOT RESUSCITATE in the past and also according to [facility] note. He confirms this and we had a discussion. His lactic acid is not elevated which would go against sepsis. His urinalysis does not suggest any definite UTI. CAT scan shows no obstructive uropathy. His hemoglobin has been stable thus far he does have an elevated white count. He was given IV antibiotics empirically with cefepime IV. He was noted to have an effusion on his right chest and has a CT which shows this as well. I do think he needs to be admitted for further treatment and evaluation and consult Dr. Brendon Phillips to see him for these measures. ldon Continuous cardiac monitoring: An order was placed in EMR for continuous cardiac monitoring. Upon my interpretation the patient was noted to be in sinus tachycardia with a rate of 100 Impression & Plan Acute right flank pain, Weakness, Hematuria, Pleural effusion, Lab test negative for COVID-19 virus Discharge Plan Visit Data Chief Complaint: Flank Pain ED Provider: Gabriel Richmond Discharge Problem: Acute right flank pain, Weakness, Hematuria, Pleural effusion, Lab test negative for COVID-19 virus Forms Stand Alone Forms: My [facility] [place] [employer] Prescriptions Prescriptions: No Action multivitamin Tablet 1 tab PO QPM RF: 0 magnesium hydroxide [Milk of Magnesia] 400 mg/5 mL Suspension 30 ml PO DAILY PRN (Reason: Constipation) RF: 0 bisacodyl [Dulcolax (bisacodyl)] 10 mg Suppository 10 mg [place] UD PRN (Reason: Constipation) RF: 0 tamsulosin 0.4 mg capsule 0.4 mg PO HS Qty: 30 RF: 0 acetaminophen 325 mg Tablet 650 mg PO Q6 PRN (Reason: Fever) RF: 0 benzonatate 100 mg Capsule 100 mg PO TID RF: 0 Fleet Enema 19-7 gram/118 mL Enema 118 ml [place] DAILY PRN (Reason: Constipation) RF: 0 polyethylene glycol 3350 [Miralax] 17 gram/dose Powder 17 g PO DAILY RF: 0 bupropion HCl [Wellbutrin XL] 150 mg Tablet Extended Release 24 Hr 150 mg PO QAM RF: 0 atorvastatin 40 mg tablet 40 mg PO QPM RF: 0 acetaminophen 325 mg tablet 650 mg PO Q8 PRN (Reason: Pain) RF: 0 phenazopyridine [Pyridium] 200 mg tablet 200 mg PO Q8H PRN (Reason: pain) Qty: 10 RF: 0 warfarin 2 mg Tablet 2 mg PO DAILY@1600 Qty: 0 RF: 0 doxycycline hyclate 100 mg capsule 100 mg PO BID Qty: 8 RF: 0 amoxicillin-pot clavulanate 875-125 mg tablet 1 tab PO BID Qty: 8 RF: 0 amiodarone 200 mg tablet 200 mg PO QAM Qty: 30 RF: 0 aspirin 81 mg Tablet,Delayed Release (Dr/Ec) 81 mg PO DAILY Qty: 30 RF: 0 famotidine 20 mg tablet 20 mg PO BID Qty: 60 RF: 0 furosemide 20 mg tablet 20 mg PO MOWEFR@0900 Qty: 20 RF: 0 metoprolol succinate 25 mg Tablet Extended Release 24 Hr 12.5 mg PO QAM Qty: 30 RF: 0 docusate sodium 100 mg Tablet 100 mg PO BID Qty: 60 RF: 0 Referrals Referrals: [facility] [Primary Care Provider] - Discharge Problem: Hematuria Qualifiers: Hematuria type: unspecified type Qualified Code(s): R31.9 - Hematuria, unspecified
[2021-09-03] MEDS ORDERED: CEFEPIME 20 ML IV ONE (10:15)
[2021-09-03] MEDS ORDERED: ceFAZolin 2000MG 2,000 MG/15 ML SYR IV ONE (10:15)
--- NOTE | 2021-09-03 10:29 | XRay Report ---
XR chest 1V portable CLINICAL HISTORY: SEPSIS TECHNIQUE: Single frontal radiograph of the chest was obtained. Comparison: Comparison is made to chest radiograph 08/28/2021 FINDINGS: Median sternotomy wires are unchanged. The cardiomediastinal silhouette is stable. Calcified aortic a rch is seen. Right lower lung airspace opacity is seen. Interval development of a moderate right pleu ral effusion. IMPRESSION: 1. Interval development of a moderate right pleural effusion. 2. Right airspace opacity is increased from prior exam and likely reflects atelectasis with or witho ut superimposed aspiration/pneumonia. ACT 112: Negative or not required by law. Electronically signed by: Vargas Sanchez M.D. 09/03/2021 10:28 AM
[2021-09-03 10:59] LABS: Hematocrit (blood only) 33.8 % (42-52); Hemoglobin 11.2 g/dL (14.0-18.0); Mean Corpuscular Hemoglobin 27.7 pg (25-34); Mean Corpuscular Hgb Conc 33.1 g/dL (32-36); Mean Corpuscular Volume 83.5 fL (80-100); Mean Platelet Volume 9.6 fL (7.4-10.4); Platelet Count 146 K/uL (130-400); RDW Coefficient of Variation 16.9 % (11.5-14.5); RDW Standard Deviation 51.5 fL (36.4-46.3); Red Blood Count 4.05 M/uL (4.7-6.1); White Blood Count 14.16 K/uL (4.8-10.8)
[2021-09-03 11:07] LABS: INR 1.7 (0.9-1.1); Partial Thromboplastin Ratio 1.2; Partial Thromboplastin Time 33.6 Seconds (21.0-31.0); Prothrombin Time 17.2 Seconds (9.0-12.0)
[2021-09-03 11:33] LABS: Troponin I High Sensitivity 15.1 pg/ml (0-20)
[2021-09-03 11:36] LABS: Albumin Globulin Ratio 0.8 (0.9-2); Albumin Level 2.4 gm/dl (3.4-5.0); Bilirubin,Total 1.1 mg/dl (0.2-1.0); Calcium 7.6 mg/dl (8.5-10.1); Globulin 3.1 gm/dl (2.5-4.0); Potassium 3.6 mmol/L (3.5-5.1); Total Protein 5.5 gm/dl (6.0-8.3)
[2021-09-03 12:00] LABS: Anisocytosis Present; Basophils # (auto) 0.01 K/uL (0-0.2); Basophils % (auto) 0.1 %; Echinocytes 1+; Eosinophils # (auto) 0.04 K/uL (0-0.5); Eosinophils % (auto) 0.3 %; Immature Granulocytes # (auto) 0.05 K/uL (0.00-0.02); Immature Granulocytes % (auto) 0.4 %; Lymphocytes # (auto) 0.99 K/uL (1.2-3.4); Monocytes # (auto) 1.57 K/uL (0.11-0.59); Monocytes % (auto) 11.1 %; Neutrophils % (auto) 81.1 %
--- NOTE | 2021-09-03 12:01 | CT Scan Report ---
CT chest diagnostic wo con CLINICAL HISTORY: pleural eff TECHNIQUE: Multidetector row helical CT of the chest was performed. Coronal and sagittal reformations were obtained. Automated dose lowering techniques and/or adjustment according to patient size were u tilized for this exam. CT DOSE: 513.14 mGy.cm Comparison: Comparison is made to CT chest 08/28/2021 and chest radiograph 09/03/2021 FINDINGS: Lungs and pleura: Interval enlargement in right pleural effusion which is now moderate in size. There is a small left pleural effusion which is also slightly increased from prior exam. Associated atelec tasis is noted. No definite consolidation is seen, previously noted groundglass opacities are not see n on today's exam. Mild bronchiectasis emphysematous changes are again seen. Heart and pericardium: Cardiomegaly is seen with biatrial enlargement. Vessels: Severe atherosclerotic changes in the aorta and coronary arteries. The descending aorta is e nlarged measuring 46 mm in diameter, stable. Mediastinum and colin: Multiple lymph nodes are seen, decreased in size from prior exam, measuring up to 12 mm in short axis in the right lower paratracheal station. A subcarinal lymph node measures 12 m m also. Chest wall and lower neck: Unremarkable. Abdomen: For findings below the diaphragm, please refer to CT of the abdomen dated the same. Bones: Degenerative changes in the thoracic spine. IMPRESSION: 1. Interval enlargement of moderate right and small left pleural effusions with associated atelectas is. No definite consolidation is seen within the limits of noncontrast technique, previously noted gr oundglass opacities in the right lung are not seen on today's exam. Previously noted lymphadenopathy is less conspicuous on today's exam which also favors improvement in infectious/inflammatory process. 2. Cardiomegaly and descending aortic aneurysm, unchanged from prior exam. ACT 112: Negative or not required by law. Electronically signed by: Vargas Sanchez M.D. 09/03/2021 11:59 AM
[2021-09-03 12:05] LABS: Appearance Urine Cloudy (Clear); Bilirubin Urine 2+ (Negative); Blood Urine 3+ (Negative); Color Urine Brown; Glucose Urine UA Negative (Negative); Ketones Urine Trace (Negative); Leukocyte Esterase Urine 1+ (Negative); Nitrite Urine Negative (Negative); Protein Urine 3+ (Negative); Specific Gravity Urine >= 1.030 (1.000-1.030); Urobilinogen Urine Negative (Negative)
--- NOTE | 2021-09-03 12:13 | CT Scan Report ---
CT abd pelvis wo con CLINICAL HISTORY: rt side pain, eval for obst uropathy TECHNIQUE: Helical axial images of the abdomen and pelvis were obtained. Automated dose lowering tech niques and/or adjustment according to patient size were utilized for this exam. This exam was perfor med without intravenous contrast. COMPARISON: Comparison is made to CT abdomen pelvis 08/26/2021 FINDINGS: Exam is limited by streak artifact. This is likely due to patient positioning outside the field of vi ew Lower chest: For findings above the diaphragm, please see CT chest performed same day. Liver: Unremarkable. No focal lesions are seen. Gallbladder and biliary tree: Distention of the gallbladder is seen, similar in extent to prior exam. No intra- or extrahepatic biliary ductal dilation. Pancreas: Unremarkable, no focal lesions. Spleen: Unremarkable. Adrenals: Unremarkable. Kidneys and ureters: A left nephroureteral stent is seen. Bladder: Limited evaluation due to underdistention. Reproductive organs: Prostatic calcifications are seen which may represent prior hemorrhage or granul omatous disease. Bowel: Incidental note is made of a particular. A hiatal hernia is noted. No bowel obstruction is see n. Lymph nodes Retroperitoneal: Unremarkable. Mesenteric: Unremarkable. Pelvic: Unremarkable. Peritoneum: Normal. Vessels: Atherosclerotic calcifications are seen. Abdominal wall: Unremarkable. Bones: Degenerative changes in the visualized spine. IMPRESSION: 1. No acute abnormalities and in particular no evidence of no evidence of right-sided obstructive ur opathy. A left nephroureteral stent is seen without evidence of hydronephrosis. 2. Extensive atherosclerotic disease. ACT 112: Negative or not required by law. Electronically signed by: Vargas Sanchez M.D. 09/03/2021 12:11 PM
[2021-09-03 12:16] LABS: Bacteria Urine 2+ (Negative); Epithelial Cell Urine 0-5 /lpf (0-5); Mucus Urine Present (None Prsent); RBC Urine >30 /hpf (0-4); WBC Urine >30 /hpf (0-5)
[2021-09-03 12:19] LABS: BUN Creatinine Ratio 16.5 (10-20); Creatinine Clr Calc Pharmacy 49.4 ml/min; Est GFR (Non-African American) 52.6 ml/min; Magnesium 1.8 mg/dl (1.7-2.4)
--- NOTE | 2021-09-03 13:14 | History & Physical Report ---
Date of Service September 03, 2021 Assessment & Plan (1) Hematuria: Plan: New in the last 3-4 days. Finished treatment for UTI either or Sunday, so he developed the hematuria while on abx. This would indicate a different bacteria that is resistant to Augmentin. He has a hx of Pseudomonas, so perhaps this flourished as other bacteria were suppressed. - Start Zosyn - Urine cx pending from the ER (though culture was obtained ~2 hours after abx were administered, so it may be less sensitive than desired) - Urology consulted for hematuria, though I suspect intervention is unlikely. (2) Chest wall pain: Plan: This is actually why he presented to the ER. Severe right chest wall tenderness over top of his lower ribs. Sensitive even to light touch. No abnormality seen on chest CT or bedside u/s. No skin findings to indicate infection, fluid collection, bleeding, or other abnormality. - Ddx includes costochondritis vs. neuropathic pain. Given it is in an approx T6/T7 dermatome, should monitor for shingles outbreak. - Will treat symptomatically with lidocaine patches and/or Voltaren gel (3) Pleural effusion: Plan: Moderate right-side and small left side effusions. Bedside u/s with hospitalist POTATO LOADER indicates relatively small volume of simple effusion. Possible some iatrogenic overload from IV fluids during last admission. Lasix was held due to hypotension. Respiratory status stable/improved from prior admission. - Increase home Lasix to 40 mg PO daily - Monitor volume status and kidney function (4) Chronic diastolic (congestive) heart failure: Plan: Echo in 09/2019 showed EF 55-60%. Presently appears euvolemic apart from the above pleural effusion. - Lasix as above (5) Paroxysmal A-fib: Plan: In afib with HR 90-100. - Continue home amiodarone and metoprolol - Continue warfarin - INR was 1.7 on admission (6) CAD (coronary artery disease): Plan: S/p CABG x 1 vessel - Nov 2015. - Continue home ASA, beta-carrington, and statin (7) Hypertension: Plan: BP in the ER was 120/70. - Continue home metoprolol - Monitor (8) BPH (benign prostatic hypertrophy): Plan: Long-standing hx with [facility]. Last admission, he had [place] cath in place with PVRs ~150 mL. 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 SCDs as well. History of Present Illness Primary Care Provider: [facility] 81yo M w/ hx of left-sided kidney stones s/p stenting who presents with hematuria and concern for UTI despite recent finishing of abx. The patient was discharged on 08/29 back to [facility] where he lives and reports he was doing fairly well overall. He reports an interval improvement in his shortness of breath and cough after being admitted for aspiration pneumonia. He reports that he thought his urine was normal on return, but his sister says that the urine was quite bloody on Sunday when she came to visit him. He is not eating as well there, and she is also worried about his weight loss. The patient reports some "mild" dysuria and reports he has been cold from time to time and required the heat to be turned up. Today, he reports severe right-sided flank pain which is what he reports actually brought him to the ER. There is a modest size nodule on the right side of his chest wall which is exquisitely tender to palpation or even light touch. He does not recall exactly when he noticed this, but thinks it has been at least 2-3 days. Allergies Allergy/AdvReac Type Severity Reaction Status Date / Time guaifenesin AdvReac Intermediate GETS Verified 08/25/21 08:11 REALLY SICK FROM MUCINEX Home Medications Medication Instructions Recorded Confirmed Type amiodarone 200 mg tablet 200 mg PO QAM #30 tab 04/20/21 08/26/21 Rx aspirin 81 mg tablet,delayed 81 mg PO DAILY #30 tab 04/20/21 08/26/21 Rx release docusate sodium 100 mg tablet 100 mg PO BID #60 tab 04/20/21 08/26/21 Rx famotidine 20 mg tablet 20 mg PO BID #60 tab 04/20/21 08/26/21 Rx furosemide 20 mg tablet 20 mg PO MOWEFR@0900 #20 tab 04/20/21 08/26/21 Rx metoprolol succinate 25 mg 12.5 mg PO QAM #30 tab 04/20/21 08/26/21 Rx tablet,extended release 24 hr bisacodyl 10 mg rectal suppository 10 mg VA UD PRN 05/18/21 08/26/21 History (Dulcolax (bisacodyl)) magnesium hydroxide 400 mg/5 mL 30 ml PO DAILY PRN 05/18/21 08/26/21 History oral suspension (Milk of Magnesia) multivitamin 1 tab PO QPM 05/18/21 08/26/21 History tamsulosin 0.4 mg capsule 0.4 mg PO HS #30 cap 05/23/21 08/26/21 Rx acetaminophen 325 mg tablet 650 mg PO Q6 PRN 08/23/21 08/26/21 History acetaminophen 325 mg tablet 650 mg PO Q8 PRN 08/23/21 08/26/21 History atorvastatin 40 mg tablet 40 mg PO QPM 08/23/21 08/26/21 History benzonatate 100 mg capsule 100 mg PO TID 08/23/21 08/26/21 History bupropion HCl 150 mg 24 hr tablet, 150 mg PO QAM 08/23/21 08/26/21 History extended release (Wellbutrin XL) polyethylene glycol 3350 17 17 g PO DAILY 08/23/21 08/26/21 History gram/dose oral powder (Miralax) sodium phosphates 19 gram-7 118 ml VA DAILY PRN 08/23/21 08/26/21 History gram/118 mL enema (Fleet Enema) phenazopyridine 200 mg tablet 200 mg PO Q8H PRN #10 tab 08/25/21 08/26/21 Rx (Pyridium) amoxicillin 875 mg-potassium 1 tab PO BID #8 tab 08/29/21 Rx clavulanate 125 mg tablet doxycycline hyclate 100 mg capsule 100 mg PO BID #8 cap 08/29/21 Rx warfarin 2 mg tablet 2 mg PO DAILY@1600 #0 tab 08/29/21 Rx Past Med/Surg History Medical History A-fib On Coumadin Anxiety Aortic aneurysm S/p thoracic aneurysm repair 2016 Per 04/04/21 abdomen/pelvis CT " There is no evidence for focal aneurysmal dilatation of the abdominal aorta. 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 per 04/20/21 discharge summary On ASA and Coumadin History of TIA prior to CVA Chronic diastolic (congestive) heart failure EF 55-60% Chronic kidney disease stage 3 COPD (chronic obstructive pulmonary disease) Dyslipidemia GERD (gastroesophageal reflux disease) History of basal cell carcinoma of skin History of COVID-19 04/04/21 per records History of sepsis Admitted Apr 2021 - dx'ed with complicated UTI and sepsis History of squamous cell carcinoma of skin HTN (hypertension) Impaired gait and mobility MRSA nasal colonization Neuropathy Pneumonia History of Covid pneumonia- dx'ed Mar/Apr 2021- treated with steroids Venous insufficiency Surgical History H/O arthroscopic knee surgery H/O thoracic aortic aneurysm repair History of aortic valve [place] 11/22/2015 - [place]. Mayo [place] No mention of AVR in recent cardio records History of cataract surgery bilateral History of cystoscopy (04/04/21) with retrograde and left uretral stent placed and stent exchanges Knee joint replacement status Right S/P CABG x 1 Family History Other Diabetes Hypertension Social History Smoking Status: Former smoker Tobacco Type: Cigarettes Cigarettes Per Day: Former smoker; Second Hand Exposure: No; Hx Alcohol Use: No Hx Substance Use: No Preferred Language: Ukrainian Communication Ability: Effective Visual Impairment: Limited Hearing Ability: Hard of Hearing Dietetics Director Required: No Beliefs That Will Affect Care: None marital status: Unknown Current Living Situation: Care Home Current Living Situation Comment: [facility] current occupational status: retired How many Children do You have: 2 Feels Safe at Home: Yes Review of Systems Review of Systems: All systems reviewed & are unremarkable except as noted in HPI & below Physical Exam Constitutional: WD/WN, vitals as above Eyes: EOM intact bilaterally; no conjunctival abnormality ENMT: external ear and nose normal, oropharynx normal Neck: trachea midline, no thyromegaly normal visual inspection Respiratory: normal respiratory effort, lungs clear to auscultation no respiratory distress Cardiovascular: RRR, no murmur, no edema Chest (Breasts): Chest: + mass (Lump on right side of chest without redness or erythema; tender); + abnormal inspection of chest Gastrointestinal (Abdomen): Inspection/Auscultation: abdomen normal to inspection; abdomen not distended Musculoskeletal: no cyanosis or clubbing, extremities motor strength 5/5 Skin: no rashes, warm and dry Neurologic: moves all extremities and awake Psychiatric: Orientation: alert, oriented to person and cooperative Results & Data Results & Data ([facility]) Vital Signs (Past 12 Hours) Vital Signs Temp Pulse Pulse Resp BP BP Pulse Ox 09/03/21 11:58 106 H 18 105/69 94 09/03/21 10:16 99 H 16 124/68 91 09/03/21 10:04 92 09/03/21 09:45 36.3 C L 106 H 106 H 18 105/59 L 105/59 L 92 Code Status & VTE Plan VTE Prophylaxis Plan VTE Prophylaxis will be ordered: Yes PG Care Time/CCT Total # of Minutes Spent Total Time Spent with Patient: Total time spent is greater than 50% in coordination of care (as documented) at patient's floor/unit and/or counseling patient: Coding Level of Care Code 94187 Initial Inpt Care Lvl 3 Diagnoses Hematuria R31.9 Paroxysmal A-fib I48.0 Pleural effusion J90 Chest wall pain R07.89 BPH (benign prostatic hypertrophy) N40.0 Hypertension I10 Hypertension type: essential hypertension Anxiety F41.9 DVT prophylaxis Z29.9 Cerebrovascular disease I67.9 Chronic diastolic (congestive) heart failure I50.32 CAD (coronary artery disease) I25.10 (1) Hypertension Hypertension type: essential hypertension Qualified Code(s): I10 - Essential (primary) hypertension
[2021-09-03] MEDS ORDERED: bisacodyL 10 MG SUPP PR PRN (16:10)
[2021-09-03] MEDS ORDERED: SOD PHOSPHATE/SOD BIPHOSPHATE ENEMA 132 ML BTL PR PRN (16:10)
[2021-09-03] MEDS ORDERED: ONDANSETRON INJ 2 MG/ML 2 ML VIAL IV PRN (16:10)
[2021-09-03] MEDS ORDERED: ACETAMINOPHEN 325 MG TAB PO PRN (16:10)
[2021-09-03] MEDS: BENZONATATE 100 MG CAPSULE PO SCH ×2 (16:38→20:24)
[2021-09-03] MEDS ORDERED: PIPERACILLIN/TAZOBACTAM 3.375 GM in DEXTROSE 5% 100 ML IV ONE (17:00)
[2021-09-03] MEDS ORDERED: DICLOFENAC SOD 1% GEL 100 GM TUBE EXT PRN (17:19)
[2021-09-03] MEDS: LIDOCAINE 5% 1 PATCH TD SCH (17:43)
[2021-09-03] MEDS ORDERED: WARFARIN SOD 3 MG TAB PO ONE (18:00)
[2021-09-03] MEDS: DAPTOmycin 300 MG in SYRINGE 0 ML IV SCH (18:39)
[2021-09-03] MEDS: TAMSULOSIN HCL 0.4 MG CAP PO SCH (20:24)
[2021-09-03] MEDS: FAMOTIDINE 20 MG TAB PO SCH (20:24)
[2021-09-03] MEDS: PIPERACILLIN/TAZOBACTAM 3.375 GM in DEXTROSE 5% 100 ML IV SCH (20:25)
[2021-09-03] MEDS: DOCUSATE SODIUM 100 MG CAP PO SCH (20:25)
[2021-09-03] MEDS ORDERED: ATORVASTATIN 40 MG TAB PO SCH (21:00)
--- NOTE | 2021-09-03 23:52 | Communication Note ---
Date of Service: September 03, 2021 Messaged about upper airway mucus. Desat to 88 during coughing fit. Placed on 2L nasal cannula Adding hypertonic saline neb and flutter valve. Exam deferred as patient sleeping. Has adverse reaction to Mucinex listed in chart.
[2021-09-04] MEDS: PIPERACILLIN/TAZOBACTAM 3.375 GM in DEXTROSE 5% 100 ML IV SCH ×3 (05:48→21:03)
[2021-09-04] MEDS: SODIUM CHLOR 7% 4 ML NEB NEB SCH ×2 (07:08→19:32)
[2021-09-04 08:31] LABS: Hematocrit (blood only) 31.3 % (42-52); Hemoglobin 10.5 g/dL (14.0-18.0); Mean Corpuscular Hemoglobin 27.9 pg (25-34); Mean Corpuscular Hgb Conc 33.5 g/dL (32-36); Mean Corpuscular Volume 83.2 fL (80-100); Mean Platelet Volume 9.4 fL (7.4-10.4); Platelet Count 120 K/uL (130-400); RDW Standard Deviation 51.6 fL (36.4-46.3); Red Blood Count 3.76 M/uL (4.7-6.1); White Blood Count 12.17 K/uL (4.8-10.8)
[2021-09-04 08:44] LABS: INR 1.9 (0.9-1.1); Prothrombin Time 19.4 Seconds (9.0-12.0)
[2021-09-04 08:49] LABS: BUN Creatinine Ratio 18.6 (10-20); Calcium 7.5 mg/dl (8.5-10.1); Creatinine Clr Calc Pharmacy 48.6 ml/min; Est GFR (African American) 59.9 ml/min; Est GFR (Non-African American) 51.7 ml/min; Magnesium 1.8 mg/dl (1.7-2.4); Potassium 3.5 mmol/L (3.5-5.1)
[2021-09-04] MEDS: DOCUSATE SODIUM 100 MG CAP PO SCH ×2 (08:50→21:03)
[2021-09-04] MEDS: buPROPion XL 150 MG TABCR PO SCH (08:50)
[2021-09-04] MEDS: METOPROLOL SUCC 25MG EXT REL TAB PO SCH (08:50)
[2021-09-04] MEDS: AMIODARONE 200 MG TAB PO SCH (08:51)
[2021-09-04] MEDS: FAMOTIDINE 20 MG TAB PO SCH ×2 (08:51→21:02)
[2021-09-04] MEDS: FUROSEMIDE 40 MG TAB PO SCH (08:51)
[2021-09-04] MEDS: ASPIRIN 81 MG ECTAB PO SCH (08:51)
[2021-09-04] MEDS: POLYETHYLENE (MIRALAX) 17 GM PACK PO SCH (08:52)
[2021-09-04] MEDS: BENZONATATE 100 MG CAPSULE PO SCH ×3 (08:52→21:03)
[2021-09-04] MEDS: LIDOCAINE 5% 1 PATCH TD SCH (08:52)
[2021-09-04] MEDS ORDERED: guaiFENesin 600 MG TABCR PO SCH (09:00)
--- NOTE | 2021-09-04 09:28 | Urology Consultation ---
Date of Consultation September 04, 2021 Assessment & Plan (1) Hematuria: (2) Ureteral stone with hydronephrosis: Consulted for hematuria secondary to anticoagulation and recent surgical intervention in the form of ureteroscopy and stent exchange His CT results were reviewed and discussed as were all lab results He has a well-positioned stent No significant hydronephrosis or other gross abnormality within his system Bladder is decompressed around Byrd catheter with a stent position approp riately His urine has cleared For the time being I think it is best just to continue observation Continue with Dr. Quiros initial plan for stent removal and voiding trial in the near future as an outpatient Barring severe hematuria I do not think there is any plan for any acute intervention History of Present Illness Attending Physician: Matthew Parra MD History of Present Illness 81-year-old gentleman status post recent left ureteroscopy, basket extraction and stent exchange Also with an indwelling Byrd catheter Admitted yesterday Experiencing some hematuria Chronically anticoagulated on warfarin Denies any major subjective complaints today Anxious to have his catheter and stent removed (he was actually not aware he still had a stent) Urine is clear today on gross examination and his hemoglobin is appropriate and stable Allergies Allergy/AdvReac Type Severity Reaction Status Date / Time guaifenesin AdvReac Intermediate GETS Verified 09/03/21 15:16 REALLY SICK FROM MUCINEX Home Medications Medication Instructions Recorded Confirmed Type amiodarone 200 mg tablet 200 mg PO QAM #30 tab 04/20/21 09/03/21 Rx aspirin 81 mg tablet,delayed 81 mg PO DAILY #30 tab 04/20/21 09/03/21 Rx release docusate sodium 100 mg tablet 100 mg PO BID #60 tab 04/20/21 09/03/21 Rx famotidine 20 mg tablet 20 mg PO BID #60 tab 04/20/21 09/03/21 Rx furosemide 20 mg tablet 20 mg PO MOWEFR@0900 #20 tab 04/20/21 09/03/21 Rx metoprolol succinate 25 mg 12.5 mg PO QAM #30 tab 04/20/21 09/03/21 Rx tablet,extended release 24 hr bisacodyl 10 mg rectal suppository 10 mg DC UD PRN 05/18/21 09/03/21 History (Dulcolax (bisacodyl)) magnesium hydroxide 400 mg/5 mL 30 ml PO DAILY PRN 05/18/21 09/03/21 History oral suspension (Milk of Magnesia) tamsulosin 0.4 mg capsule 0.4 mg PO HS #30 cap 05/23/21 09/03/21 Rx acetaminophen 325 mg tablet 650 mg PO Q6 PRN MDD 3g 08/23/21 09/03/21 History acetaminophen 325 mg tablet 650 mg PO Q6 PRN MDD 3g 08/23/21 09/03/21 History bupropion HCl 150 mg 24 hr tablet, 150 mg PO QAM 08/23/21 09/03/21 History extended release (Wellbutrin XL) polyethylene glycol 3350 17 17 g PO DAILY 08/23/21 09/03/21 History gram/dose oral powder (Miralax) sodium phosphates 19 gram-7 118 ml DC DAILY PRN 08/23/21 09/03/21 History gram/118 mL enema (Fleet Enema) phenazopyridine 200 mg tablet 200 mg PO Q8H PRN #10 tab 08/25/21 09/03/21 Rx (Pyridium) warfarin 2 mg tablet 2 mg PO DAILY@1600 #0 tab 08/29/21 09/03/21 Rx benzonatate 100 mg capsule 100 mg PO TID 09/03/21 09/03/21 History ceftriaxone 1 gram solution for 1 g IM DAILY 09/03/21 09/03/21 History injection lidocaine HCl 10 mg/mL (1 %) 2.1 ml IM DAILY 09/03/21 09/03/21 History injection solution multivitamin with minerals 1 tab PO QPM 09/03/21 09/03/21 History (Multiple Vitamin-Minerals) Patient History Medical History A-fib On Coumadin Anxiety Aortic aneurysm S/p thoracic aneurysm repair 2016 Per 04/04/21 abdomen/pelvis CT " There is no evidence for focal aneurysmal dilatation of the abdominal aorta. 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 per 04/20/21 discharge summary On ASA and Coumadin History of TIA prior to CVA Chronic diastolic (congestive) heart failure EF 55-60% Chronic kidney disease stage 3 COPD (chronic obstructive pulmonary disease) Dyslipidemia GERD (gastroesophageal reflux disease) History of basal cell carcinoma of skin History of COVID-19 04/04/21 per records History of sepsis Admitted Apr 2021 - dx'ed with complicated UTI and sepsis History of squamous cell carcinoma of skin HTN (hypertension) Impaired gait and mobility MRSA nasal colonization Neuropathy Pneumonia History of Covid pneumonia- dx'ed Mar/Apr 2021- treated with steroids Venous insufficiency Surgical History H/O arthroscopic knee surgery H/O thoracic aortic aneurysm repair History of aortic valve replacement 11/22/2015 - Dr. Mayo [place] ([facility] [place] per records No mention of AVR in recent cardio records History of cataract surgery bilateral History of cystoscopy (04/04/21) with retrograde and left uretral stent placed and stent exchanges Knee joint replacement status Right S/P CABG x 1 Family History Other Diabetes Hypertension Social History Smoking Status: Never smoker Tobacco Type: Cigarettes Cigarettes Per Day: Former smoker; Second Hand Exposure: No; Hx Alcohol Use: No Hx Substance Use: No Preferred Language: Ivorian Communication Ability: Effective Visual Impairment: Limited Hearing Ability: Hard of Hearing Lab Tester Required: No Beliefs That Will Affect Care: None marital status: Unknown Current Living Situation: [facility] Current [facility] Situation Comment[facility] current occupational status: retired How many Children do You have: 2 Feels Safe at Home: Yes Assistive Devices: Glasses, Walker and Wheelchair Physical Exam Physical Exam: Byrd catheter in position draining relatively clear urine Constitutional: well developed and well nourished Respiratory: no respiratory distress Cardiovascular: Extremities: no pedal edema Gastrointestinal (Abdomen): Inspection/Auscultation: abdomen normal to inspection Results & Data [facility]) Vital Signs (Past 12 Hours) Vital Signs Temp Pulse Pulse Resp BP Pulse Ox 09/04/21 07:35 37 C 103 H 18 107/58 L 98 09/04/21 07:32 99 H 09/04/21 07:09 72 16 95 09/04/21 04:00 36.9 C 95 H 19 100/50 L 95 09/03/21 23:03 106 H 09/03/21 22:43 91 09/03/21 22:35 36.8 C 65 20 93/51 L 89 L PG Care Time/CCT Total # of Minutes Spent Total Time Spent with Patient: Total time spent is greater than 50% in coordination of care (as documented) at patient's floor/unit and/or counseling patient: Coding Level of Care Code 29683 Inpt Consult Level 4 Diagnoses Hematuria R31.9 Hematuria type: unspecified type Ureteral stone with hydronephrosis N13.2 (1) Hematuria Hematuria type: unspecified type Qualified Code(s): R31.9 - Hematuria, unspecified
--- NOTE | 2021-09-04 10:38 | Hospitalist Progress Note ---
Date of Service September 04, 2021 Assessment & Plan (1) Hematuria: Plan: New in the last 3-4 days. Finished treatment for UTI either last or Sunday. He developed the current hematuria while on abx. This would indicate a different bacteria that is resistant to Augmentin. He has a hx of Pseudomonas, so perhaps this flourished as other bacteria were suppressed. -Currently on Zosyn and daptomycin. Await urine cultures and blood culture results. - Urology consult pending. (2) Chest wall pain: Plan: This is actually why he presented to the ER. Severe right chest wall tenderness over top of his lower ribs. Sensitive even to light touch. No abnormality seen on chest CT or bedside u/s. No skin findings to indicate infection, fluid collection, bleeding, or other abnormality. - Ddx includes costochondritis vs. neuropathic pain. Given it is in an approx T6/T7 dermatome, should monitor for shingles outbreak. - treat symptomatically with lidocaine patches and/or Voltaren gel (3) Pleural effusion: Plan: Moderate right-side and small left side effusions. Bedside u/s revealed relatively small volume , simple effusion. Possible some iatrogenic overload from IV fluids during last admission. Lasix was held then due to hypotension. Respiratory status stable/improved from prior admission. - Increased home Lasix to 40 mg PO daily - Monitor volume status and kidney function (4) Chronic diastolic (congestive) heart failure: Plan: Echo in 09/2019 showed EF 55-60%. Presently appears euvolemic apart from the above pleural effusion. - Lasix as above (5) Paroxysmal A-fib: Plan: In afib with HR 90-100. - Continue home amiodarone and metoprolol - Continue warfarin - INR was 1.7 on admission. Serial INR measurements ordered (6) CAD (coronary artery disease): Plan: S/p CABG x 1 vessel - Nov 2015. - Continue home ASA, beta-carrington, and statin (7) Hypertension: Plan: BP in the ER was 120/70. - Continue home metoprolol - Monitor (8) BPH (benign prostatic hypertrophy): Plan: Long-standing hx with [facility]. Last admission, he had [place] cath in place with PVRs ~150 mL. 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 Monitor daily INR levels while on IV antibiotics. Plan: Anticipate eventual discharge to home Admission and Anticipated Discharge Date Admission Date: September 03, 2021 Subjective Unpleasant disposition but alert and oriented. Hematuria has resolved. INR is pending. He remains on daptomycin and Zosyn. Urine and blood cultures remain pending. Will discontinue oxygen per nasal cannula if room air saturation is greater than 90%. Review of Systems Review of Systems: Constitutional-no fever or chills ENT-no blurred vision, no double vision, no epistaxis, no sore throat Respiratory-no cough, no wheezing, no shortness of breath Cardiac-no palpitations, no chest pain, no syncope GI-no nausea, vomiting, diarrhea, melena, hematochezia -no urinary retention, no urinary incontinence, no dysuria. Hematuria present on admission has resolved Musculoskeletal-no joint pain, no muscle tenderness Skin-no bruising, no rashes, no pruritus Neuro-no isolated weakness, no paresthesia, no weakness Psych-no depression, no anxiety Physical Exam Physical Exam: General-alert and oriented x3, no fevers, no chills HEENT-head atraumatic and normocephalic, TMs intact bilaterally, pupils equal and reactive to light, extraocular muscles intact Neck-no lymphadenopathy or thyromegaly, trachea midline Chest-clear to auscultation percussion. No rales wheezing or rhonchi Cardiac-regular rate and rhythm, normal S1 and S2, no murmurs Abdomen-normal bowel sounds, nontender, no hepatosplenomegaly -Byrd catheter in place. No hematuria Extremities-no cyanosis, clubbing, or edema Neuro-cranial nerves II through XII intact, motor and sensory function within normal limits, strength symmetrical 5, no focal deficits Psych-unpleasant affect but alert and oriented Results & Data Results & Data ([facility]) Vital Signs (Past 12 Hours) Vital Signs Temp Pulse Pulse Resp BP Pulse Ox 09/04/21 07:35 37 C 103 H 18 107/58 L 98 09/04/21 07:32 99 H 09/04/21 07:09 72 16 95 09/04/21 04:00 36.9 C 95 H 19 100/50 L 95 09/03/21 23:03 106 H 09/03/21 22:43 91 09/03/21 22:35 36.8 C 65 20 93/51 L 89 L Laboratory Results 09/04/21 07:39 09/04/21 07:39 PG Care Time/CCT Total # of Minutes Spent Total Time Spent with Patient: Total time spent is greater than 50% in coordination of care (as documented) at patient's floor/unit and/or counseling patient: Coding Level of Care Code 57374 Subseq Hosp Care Lvl 3 Diagnoses Hematuria R31.9 Chest wall pain R07.89 Pleural effusion J90 Chronic diastolic (congestive) heart failure I50.32 Paroxysmal A-fib I48.0 CAD (coronary artery disease) I25.10 Hypertension I10 Hypertension type: essential hypertension BPH (benign prostatic hypertrophy) N40.0 Anxiety F41.9 Cerebrovascular disease I67.9 DVT prophylaxis Z29.9 (1) Hypertension Hypertension type: essential hypertension Qualified Code(s): I10 - Essential (primary) hypertension
[2021-09-04] MEDS: WARFARIN SOD 2 MG TAB PO SCH (16:34)
[2021-09-04] MEDS: DAPTOmycin 300 MG in SYRINGE 0 ML IV SCH (18:05)
[2021-09-04] MEDS: TAMSULOSIN HCL 0.4 MG CAP PO SCH (21:03)
[2021-09-05] MEDS: PIPERACILLIN/TAZOBACTAM 3.375 GM in DEXTROSE 5% 100 ML IV SCH (05:09)
[2021-09-05] MEDS: SODIUM CHLOR 7% 4 ML NEB NEB SCH ×2 (07:15→19:19)
[2021-09-05 07:23] LABS: Basophils # (auto) 0.01 K/uL (0-0.2); Basophils % (auto) 0.1 %; Eosinophils # (auto) 0.11 K/uL (0-0.5); Hematocrit (blood only) 30.2 % (42-52); Hemoglobin 10.1 g/dL (14.0-18.0); Immature Granulocytes # (auto) 0.04 K/uL (0.00-0.02); Immature Granulocytes % (auto) 0.4 %; Lymphocytes # (auto) 0.99 K/uL (1.2-3.4); Lymphocytes % (auto) 9.4 %; Mean Corpuscular Hemoglobin 27.7 pg (25-34); Mean Corpuscular Hgb Conc 33.4 g/dL (32-36); Mean Platelet Volume 9.5 fL (7.4-10.4); Monocytes # (auto) 0.94 K/uL (0.11-0.59); Monocytes % (auto) 8.9 %; Neutrophils # (auto) 8.46 K/uL (1.4-6.5); Neutrophils % (auto) 80.2 %; Platelet Count 133 K/uL (130-400); RDW Coefficient of Variation 17.1 % (11.5-14.5); RDW Standard Deviation 51.5 fL (36.4-46.3); Red Blood Count 3.64 M/uL (4.7-6.1); White Blood Count 10.55 K/uL (4.8-10.8)
[2021-09-05 07:36] LABS: INR 2.4 (0.9-1.1)
[2021-09-05 08:10] LABS: BUN Creatinine Ratio 16.8 (10-20); Calcium 7.1 mg/dl (8.5-10.1); Creatinine Clr Calc Pharmacy 47.9 ml/min; Est GFR (African American) 58.8 ml/min; Est GFR (Non-African American) 50.7 ml/min; Potassium 2.8 mmol/L (3.5-5.1)
[2021-09-05] MEDS: BENZONATATE 100 MG CAPSULE PO SCH ×3 (09:38→20:52)
[2021-09-05] MEDS: FAMOTIDINE 20 MG TAB PO SCH ×2 (09:38→20:52)
[2021-09-05] MEDS: DOCUSATE SODIUM 100 MG CAP PO SCH (09:39)
[2021-09-05] MEDS: METOPROLOL SUCC 25MG EXT REL TAB PO SCH (09:39)
[2021-09-05] MEDS: buPROPion XL 150 MG TABCR PO SCH (09:40)
[2021-09-05] MEDS: AMIODARONE 200 MG TAB PO SCH (09:41)
[2021-09-05] MEDS: ASPIRIN 81 MG ECTAB PO SCH (09:42)
[2021-09-05] MEDS: FUROSEMIDE 40 MG TAB PO SCH (09:43)
[2021-09-05] MEDS: LIDOCAINE 5% 1 PATCH TD SCH (09:43)
[2021-09-05] MEDS: POLYETHYLENE (MIRALAX) 17 GM PACK PO SCH (09:44)
[2021-09-05] MEDS: POTASSIUM CHLORIDE 20 MEQ/15 ML UDC PO SCH ×2 (10:01→20:52)
--- NOTE | 2021-09-05 10:12 | Hospitalist Progress Note ---
Date of Service September 05, 2021 Assessment & Plan (1) Hematuria: Plan: Symptoms; nothing to suggest acute bacterial infection; noted candiduriastop antibiotics, change Byrd and observe (2) Chest wall pain: Plan: None reported to me; observe (3) Pleural effusion: Plan: Follow clinically and repeat x-ray chest in a.m. (4) Chronic diastolic (congestive) heart failure: Plan: Based on clinical assessment for the moment I cut down Lasix to 20 mg; reassess (5) Paroxysmal A-fib: Plan: Clinically regular, heart rate control, follow (6) CAD (coronary artery disease): Plan: S/p CABG x 1 vessel - Nov 2015. - Continue home ASA, beta-carrington, and statin (7) Hypertension: Plan: BP in the ER was 120/70. - Continue home metoprolol - Monitor (8) BPH (benign prostatic hypertrophy): Plan: Long-standing hx with [facility]. Last admission, he had [place] cath in place with PVRs ~150 mL. 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 Monitor daily INR levels while on IV antibiotics. (12) Anemia: Plan: Follow (13) Hypokalemia: Plan: Replace (14) Hypoxia: Plan: Appears intermittent; recent CT chest noted; added incentive spirometry, speech consult and follow Plan: Excoriation perianalwound care consulted Incentive spirometry Speech consult anticipate eventual discharge to facility Admission and Anticipated Discharge Date Admission Date: September 03, 2021 Subjective Follow-up of hematuria- mildly confused; apparently low oxygen saturation in a.m.; no hematuria noted Physical Exam Physical Exam: Constitutional and general: No acute distress, looks biologic age; somewhat chronically ill; mildly confused Head and face: No puffiness, atraumatic Eyes: No scleral icterus, extraocular movements normal Neck: Supple, no JVD Musculoskeletal: No acute joint swelling, no bony abnormalities Skin/dermatologic/integument: No rash, no purpura Hematologic and lymphatic: pallor +, no petechia Gastrointestinal/abdomen: Nondistended, soft, nonacute Neurologic: Cranial nerves intact, nonfocal Psychiatry: Awake, alert, pleasant, communicative Cardiovascular: Heart rhythm regular, no rub, no murmur, no gallop Respiratory: Chest movements equal, no use of accessory muscles, no adventitious sounds Extremities: edema (+), stasis changes, no cyanosis Results & Data Results & Data ([facility]) Vital Signs (Past 12 Hours) Vital Signs Temp Pulse Pulse Resp BP BP Pulse Ox 09/05/21 09:46 113/67 09/05/21 07:50 36.5 C 95 H 16 99/55 L 09/05/21 07:15 78 18 93 09/05/21 02:24 36.6 C 96 H 18 91/52 L 91 09/04/21 22:52 94 H 09/04/21 22:40 36.4 C L 96 H 18 111/59 L 98 Laboratory Results Laboratory Results - last 24 hr 09/05/21 09/05/21 09/05/21 06:53 06:53 06:53 WBC 10.55 RBC 3.64 L Hgb 10.1 L Hct 30.2 L MCV 83.0 MCH 27.7 MCHC 33.4 RDW Std Deviation 51.5 H RDW Coeff of Trinh 17.1 H Plt Count 133 MPV 9.5 Immature Gran % (Auto) 0.4 Neut % (Auto) 80.2 Lymph % (Auto) 9.4 [place] % (Auto) 8.9 Eos % (Auto) 1.0 Baso % (Auto) 0.1 Neut # (Auto) 8.46 H Lymph # (Auto) 0.99 L [place] # (Auto) 0.94 H Eos # (Auto) 0.11 Baso # (Auto) 0.01 Immature Gran # (Auto) 0.04 H PT 24.0 H INR 2.4 H Sodium 141 Potassium 2.8 L Chloride 109 H Carbon Dioxide 26 Anion Gap 6 BUN 22 Creatinine 1.31 Est Cr Clr Drug Dosing 47.9 Est GFR ( Amer) 58.8 Est GFR (Non-Af Amer) 50.7 BUN/Creatinine Ratio 16.8 Glucose 83 Calcium 7.1 L PG Care Time/CCT Total # of Minutes Spent Total Time Spent with Patient: Total time spent is greater than 50% in coordination of care (as documented) at patient's floor/unit and/or counseling patient: Coding Level of Care Code 07152 Subseq Hosp Care Lvl 2 Diagnoses Hematuria R31.9 Chest wall pain R07.89 Pleural effusion J90 Chronic diastolic (congestive) heart failure I50.32 Paroxysmal A-fib I48.0 CAD (coronary artery disease) I25.10 Hypertension I10 Hypertension type: essential hypertension BPH (benign prostatic hypertrophy) N40.0 Anxiety F41.9 Cerebrovascular disease I67.9 DVT prophylaxis Z29.9 Anemia D64.9 Hypokalemia E87.6 Hypoxia R09.02 (1) Hypertension Hypertension type: essential hypertension Qualified Code(s): I10 - Essential (primary) hypertension
[2021-09-05] MEDS ORDERED: POLYETHYLENE (MIRALAX) 17 GM PACK PO PRN (12:21)
[2021-09-05] MEDS: WARFARIN SOD 2 MG TAB PO SCH (16:56)
[2021-09-05] MEDS: TAMSULOSIN HCL 0.4 MG CAP PO SCH (20:52)
--- NOTE | 2021-09-05 22:30 | Electrocardiogram Report ---
Test Reason : Blood Pressure : / mmHG Vent. Rate : 104 BPM Atrial Rate : 104 BPM P-R Int : 142 ms QRS Dur : 126 ms QT Int : 392 ms P-R-T Axes : 071 034 085 degrees QTc Int : 516 ms Poor data quality, interpretation may be adversely affected Possible Atrial fibrillation vs atrial flutter with RVR Non-specific intra-ventricular conduction block Cannot rule out Anteroseptal infarct , age undetermined Abnormal ECG When compared with ECG of 26-AUG-2021 15:38, Minimal criteria for Anteroseptal infarct are now Present Confirmed by Scott Ross [id number] on 09/05/2021 10:30:17 PM Referred By: REFERRED SELF Confirmed By:Scott Ross
[2021-09-06 07:17] LABS: Basophils # (auto) 0.01 K/uL (0-0.2); Basophils % (auto) 0.1 %; Eosinophils # (auto) 0.12 K/uL (0-0.5); Eosinophils % (auto) 1.3 %; Hematocrit (blood only) 31.8 % (42-52); Hemoglobin 10.6 g/dL (14.0-18.0); Immature Granulocytes # (auto) 0.04 K/uL (0.00-0.02); Immature Granulocytes % (auto) 0.4 %; Lymphocytes # (auto) 1.06 K/uL (1.2-3.4); Lymphocytes % (auto) 11.2 %; Mean Corpuscular Hemoglobin 27.5 pg (25-34); Mean Corpuscular Hgb Conc 33.3 g/dL (32-36); Mean Corpuscular Volume 82.4 fL (80-100); Mean Platelet Volume 9.5 fL (7.4-10.4); Monocytes # (auto) 0.74 K/uL (0.11-0.59); Monocytes % (auto) 7.8 %; Neutrophils # (auto) 7.49 K/uL (1.4-6.5); Neutrophils % (auto) 79.2 %; Platelet Count 151 K/uL (130-400); RDW Coefficient of Variation 17.1 % (11.5-14.5); Red Blood Count 3.86 M/uL (4.7-6.1); White Blood Count 9.46 K/uL (4.8-10.8)
[2021-09-06] MEDS: SODIUM CHLOR 7% 4 ML NEB NEB SCH ×2 (07:22→20:17)
[2021-09-06 07:32] LABS: INR 3.2 (0.9-1.1); Prothrombin Time 31.8 Seconds (9.0-12.0)
[2021-09-06 07:36] LABS: Albumin Globulin Ratio 0.7 (0.9-2); Albumin Level 2.1 gm/dl (3.4-5.0); Bilirubin,Total 0.8 mg/dl (0.2-1.0); Calcium 7.2 mg/dl (8.5-10.1); Creatinine Clr Calc Pharmacy 47.6 ml/min; Est GFR (African American) 58.2 ml/min; Est GFR (Non-African American) 50.2 ml/min; Magnesium 1.6 mg/dl (1.7-2.4); Total Protein 5.1 gm/dl (6.0-8.3)
[2021-09-06] MEDS: LIDOCAINE 5% 1 PATCH TD SCH (08:51)
[2021-09-06] MEDS: BENZONATATE 100 MG CAPSULE PO SCH ×3 (08:53→21:01)
[2021-09-06] MEDS: FAMOTIDINE 20 MG TAB PO SCH ×2 (08:53→21:02)
[2021-09-06] MEDS: buPROPion XL 150 MG TABCR PO SCH (08:54)
[2021-09-06] MEDS: METOPROLOL SUCC 25MG EXT REL TAB PO SCH (08:55)
[2021-09-06] MEDS: ASPIRIN 81 MG ECTAB PO SCH (08:55)
[2021-09-06] MEDS: AMIODARONE 200 MG TAB PO SCH (08:56)
[2021-09-06] MEDS: POTASSIUM CHLORIDE 20 MEQ/15 ML UDC PO SCH (08:56)
[2021-09-06] MEDS ORDERED: FUROSEMIDE 20 MG TAB PO SCH (09:00)
[2021-09-06] MEDS: MAGNESIUM SULFATE / D5W 1 GM/100 ML BAG IV SCH ×2 (11:40→13:36)
--- NOTE | 2021-09-06 14:59 | Hospitalist Progress Note ---
Date of Service September 06, 2021 Assessment & Plan (1) Hematuria: Plan: nothing to suggest acute bacterial infection; stopped antibiotics; noted catheter induced candiduriano treatment; Byrd changed; observe (2) Chest wall pain: Plan: None reported to me; observe (3) Pleural effusion: Plan: Follow clinically and repeat x-ray chest in a day or 2 (intentionally not ordered for today) (4) Chronic diastolic (congestive) heart failure: Plan: Looks volume repleteLasix 40 mg from a.m. (5) Paroxysmal A-fib: Plan: Clinically regular, heart rate control, follow; INR 3.2hold Coumadin today (6) CAD (coronary artery disease): Plan: S/p CABG x 1 vessel - Nov 2015. - Continue home ASA, beta-carrington, and statin (7) Hypertension: Plan: BP in the ER was 120/70. 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 - Meds as above (11) Anemia: Plan: Follow (12) Hypokalemia: Plan: Replace (13) Hypoxia: Plan: Appears intermittent; recent CT chest noted; added incentive spirometry, speech consulted; follow (14) Abnormal LFTs: Plan: Mildly abnormal; absolutely no right upper quadrant tenderness; gallbladder comment on CT scan notedobserve Plan: Excoriation perianalwound care consulted Should continue incentive spirometry anticipate eventual discharge to facility Admission and Anticipated Discharge Date Admission Date: September 03, 2021 Subjective Follow-up of hematuria-doing better; more communicative and alert Physical Exam Physical Exam: Constitutional and general: No acute distress, looks biologic age; somewhat chronically ill; mildly confused Head and face: No puffiness, atraumatic Eyes: No scleral icterus, extraocular movements normal Neck: Supple, no JVD Musculoskeletal: No acute joint swelling, no bony abnormalities Skin/dermatologic/integument: No rash, no purpura Hematologic and lymphatic: pallor +, no petechia Gastrointestinal/abdomen: Nondistended, soft, nonacute Neurologic: Cranial nerves intact, nonfocal Psychiatry: Awake, alert, pleasant, communicative Cardiovascular: Heart rhythm regular, no rub, no murmur, no gallop Respiratory: Chest movements equal, no use of accessory muscles, no adventitious sounds Extremities: edema (+), stasis changes, no cyanosis Results & Data Results & Data ([facility]) Vital Signs (Past 12 Hours) Vital Signs Temp Pulse Pulse Resp BP Pulse Ox 09/06/21 12:00 36.7 C 102 H 20 111/65 97 09/06/21 07:25 98 H 09/06/21 03:37 36.6 C 98 H 20 106/58 L 92 Laboratory Results Laboratory Results - last 24 hr 09/05/21 09/06/21 09/06/21 17:50 06:55 06:55 WBC 9.46 RBC 3.86 L Hgb 10.6 L Hct 31.8 L MCV 82.4 MCH 27.5 MCHC 33.3 RDW Std Deviation 51.0 H RDW Coeff of Trinh 17.1 H Plt Count 151 MPV 9.5 Immature Gran % (Auto) 0.4 Neut % (Auto) 79.2 Lymph % (Auto) 11.2 [place] % (Auto) 7.8 Eos % (Auto) 1.3 Baso % (Auto) 0.1 Neut # (Auto) 7.49 H Lymph # (Auto) 1.06 L [place] # (Auto) 0.74 H Eos # (Auto) 0.12 Baso # (Auto) 0.01 Immature Gran # (Auto) 0.04 H PT 31.8 H INR 3.2 H Sodium Potassium Chloride Carbon Dioxide Anion Gap BUN Creatinine Est Cr Clr Drug Dosing Est GFR ( Amer) Est GFR (Non-Af Amer) Fasting Glucose Calcium Magnesium Total Bilirubin AST ALT Alkaline Phosphatase Total Protein Albumin Globulin Albumin/Globulin Ratio Stl C. diff Tox B Gene TNP 09/06/21 06:55 WBC RBC Hgb Hct MCV MCH MCHC RDW Std Deviation RDW Coeff of Trinh Plt Count MPV Immature Gran % (Auto) Neut % (Auto) Lymph % (Auto) [place] % (Auto) Eos % (Auto) Baso % (Auto) Neut # (Auto) Lymph # (Auto) [place] # (Auto) Eos # (Auto) Baso # (Auto) Immature Gran # (Auto) PT INR Sodium 141 Potassium 3.0 L Chloride 108 H Carbon Dioxide 27 Anion Gap 6 BUN 19 Creatinine 1.32 Est Cr Clr Drug Dosing 47.6 Est GFR ( Amer) 58.2 Est GFR (Non-Af Amer) 50.2 Fasting Glucose 77 Calcium 7.2 L Magnesium 1.6 L Total Bilirubin 0.8 AST 51 H ALT 32 Alkaline Phosphatase 111 H Total Protein 5.1 L Albumin 2.1 L Globulin 3.0 Albumin/Globulin Ratio 0.7 L Stl C. diff Tox B Gene PG Care Time/CCT Total # of Minutes Spent Total Time Spent with Patient: Total time spent is greater than 50% in coordination of care (as documented) at patient's floor/unit and/or counseling patient: Coding Level of Care Code 62189 Subseq Hosp Care Lvl 2 Diagnoses Hematuria R31.9 Chest wall pain R07.89 Pleural effusion J90 Chronic diastolic (congestive) heart failure I50.32 Paroxysmal A-fib I48.0 CAD (coronary artery disease) I25.10 Hypertension I10 Hypertension type: essential hypertension BPH (benign prostatic hypertrophy) N40.0 Anxiety F41.9 Cerebrovascular disease I67.9 Anemia D64.9 Hypokalemia E87.6 Hypoxia R09.02 Abnormal LFTs R79.89 (1) Hypertension Hypertension type: essential hypertension Qualified Code(s): I10 - Essential (primary) hypertension
[2021-09-06] MEDS: TAMSULOSIN HCL 0.4 MG CAP PO SCH (21:01)
[2021-09-07 06:45] LABS: Basophils # (auto) 0.01 K/uL (0-0.2); Basophils % (auto) 0.1 %; Eosinophils % (auto) 1.1 %; Hematocrit (blood only) 33.8 % (42-52); Hemoglobin 11.2 g/dL (14.0-18.0); Immature Granulocytes # (auto) 0.03 K/uL (0.00-0.02); Immature Granulocytes % (auto) 0.3 %; Lymphocytes # (auto) 1.06 K/uL (1.2-3.4); Lymphocytes % (auto) 11.7 %; Mean Corpuscular Hemoglobin 27.5 pg (25-34); Mean Corpuscular Hgb Conc 33.1 g/dL (32-36); Mean Platelet Volume 9.6 fL (7.4-10.4); Monocytes # (auto) 0.92 K/uL (0.11-0.59); Monocytes % (auto) 10.1 %; Neutrophils # (auto) 6.97 K/uL (1.4-6.5); Neutrophils % (auto) 76.7 %; Platelet Count 168 K/uL (130-400); RDW Coefficient of Variation 17.2 % (11.5-14.5); RDW Standard Deviation 51.3 fL (36.4-46.3); Red Blood Count 4.07 M/uL (4.7-6.1); White Blood Count 9.09 K/uL (4.8-10.8)
[2021-09-07 07:03] LABS: Albumin Globulin Ratio 0.7 (0.9-2); Albumin Level 2.1 gm/dl (3.4-5.0); Bilirubin,Total 0.8 mg/dl (0.2-1.0); Calcium 7.1 mg/dl (8.5-10.1); Creatinine Clr Calc Pharmacy 45.8 ml/min; Est GFR (African American) 64.7 ml/min; Est GFR (Non-African American) 55.8 ml/min; Magnesium 1.9 mg/dl (1.7-2.4); Phosphorus 2.7 mg/dl (2.5-4.9); Potassium 2.8 mmol/L (3.5-5.1); Total Protein 5.1 gm/dl (6.0-8.3)
[2021-09-07 07:10] LABS: INR 3.3 (0.9-1.1); Prothrombin Time 32.9 Seconds (9.0-12.0)
[2021-09-07] MEDS: AMIODARONE 200 MG TAB PO SCH (08:53)
[2021-09-07] MEDS: FAMOTIDINE 20 MG TAB PO SCH ×2 (08:53→20:23)
[2021-09-07] MEDS: BENZONATATE 100 MG CAPSULE PO SCH ×3 (08:53→20:23)
[2021-09-07] MEDS: ASPIRIN 81 MG ECTAB PO SCH (08:53)
[2021-09-07] MEDS: buPROPion XL 150 MG TABCR PO SCH (08:54)
[2021-09-07] MEDS: FUROSEMIDE 40 MG TAB PO SCH (08:54)
[2021-09-07] MEDS: METOPROLOL SUCC 25MG EXT REL TAB PO SCH (08:54)
[2021-09-07] MEDS: LIDOCAINE 5% 1 PATCH TD SCH (08:55)
[2021-09-07] MEDS: POTASSIUM CHLORIDE 20MEQ/15ML 473ML PO SCH ×2 (08:55→20:24)
[2021-09-07] MEDS: POTASSIUM CHLORIDE / WTR 10 MEQ/100 ML PLCT IV SCH ×4 (09:17→17:09)
[2021-09-07] MEDS ORDERED: MoRPHine SULFATE 2 MG/ML CARP ONE (13:53)
--- NOTE | 2021-09-07 14:38 | Nuclear Medicine Report ---
NUCLEAR MEDICINE HEPATOBILIARY SCAN CLINICAL HISTORY: Abnormal liver function tests. COMPARISON: CT of the abdomen and pelvis September 03, 2021. TECHNIQUE: 5.6 mCi of technetium 99m Choletec IV was injected at 12:52 PM on September 07, 2021. Immediat key following injection, imaging of the abdomen was carried out for 60 minutes in the anterior projec tion. Gallbladder activity was not identified at 60 minutes. Therefore, 2 mg of morphine was administ ered IV as per protocol and imaging was carried out for an additional 30 minutes. FINDINGS: Hepatic uptake of radiotracer is prompt and homogeneous. Activity is identified within the common bile duct and small bowel at 15 minutes. Gallbladder activity was not identified at 60 minute s. Morphine was administered. No gallbladder activity was identified 30 minutes following morphine ad ministration. These findings indicate cystic duct obstruction and suggest acute cholecystitis. IMPRESSION: Nonvisualization of gallbladder activity following morphine administration indicative of cystic duct obstruction. The findings are consistent with acute cholecystitis. ACT 112: Negative or not required by law. Electronically signed by: Tyron Chavez M.D. 09/07/2021 2:37 PM
[2021-09-07] MEDS ORDERED: PHYTONADIONE PED PO ONE (16:25)
[2021-09-07] MEDS ORDERED: ORA SWEET PO ONE (16:25)
[2021-09-07] MEDS ORDERED: [UNRECOGNIZED DRUG - OTHER] PO ONE (16:25)
[2021-09-07] MEDS ORDERED: ORA PO ONE (16:25)
--- NOTE | 2021-09-07 16:47 | Hospitalist Progress Note ---
Date of Service September 07, 2021 Assessment & Plan (1) Acute cholecystitis: Plan: Given persistently abnormal LFTs HIDA scan obtainedconfirms cystic duct obstruction; surgery consulted; Rocephin plus Flagyl, n.p.o. after midnight; might warrant cholecystostomy Coumadin reversed with vitamin K for now (2) Hematuria: Plan: Mild againobserve (3) Pleural effusion: Plan: Follow clinically and repeated x-ray chest (4) Chronic diastolic (congestive) heart failure: Plan: Looks volume repletecontinue 40 mg Lasix (5) Paroxysmal A-fib: Plan: Clinically regular, heart rate control, follow; Coumadin being reversed (6) CAD (coronary artery disease): Plan: S/p CABG x 1 vessel - Nov 2015. - Continue home ASA, beta-carrington, and statin (7) Hypertension: Plan: BP in the ER was 120/70. 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 - Meds as above (11) Anemia: Plan: Follow (12) Hypokalemia: Plan: Replace more aggressively (13) Hypoxia: Plan: Appears intermittent; recent CT chest noted; added incentive spirometry; repeat x-ray chest pendingdid not increase diuresis yet given cholecystitis (infective physiology) and also hypokalemiacorrect same appropriately first Plan: Excoriation perianalwound care consulted Should continue incentive spirometry anticipate eventual discharge to facility Could not reach family to update Admission and Anticipated Discharge Date Admission Date: September 03, 2021 Subjective Follow-up of original presentation with hematuriano specific complaints Physical Exam Physical Exam: Constitutional and general: No acute distress, looks biologic age; somewhat chronically ill; mildly confused Head and face: No puffiness, atraumatic Eyes: No scleral icterus, extraocular movements normal Neck: Supple, no JVD Musculoskeletal: No acute joint swelling, no bony abnormalities Skin/dermatologic/integument: No rash, no purpura Hematologic and lymphatic: pallor +, no petechia Gastrointestinal/abdomen: Nondistended, soft, nonacute Neurologic: Cranial nerves intact, nonfocal Psychiatry: Awake, alert, pleasant, communicative Cardiovascular: Heart rhythm regular, no rub, no murmur, no gallop Respiratory: Chest movements equal, no use of accessory muscles, no adventitious sounds Extremities: edema (+), stasis changes, no cyanosis Results & Data Results & Data ([facility]) Vital Signs (Past 12 Hours) Vital Signs Temp Pulse Pulse Resp BP BP Pulse Ox 09/07/21 16:03 96 H 09/07/21 14:48 36.3 C L 100 H 20 110/72 94 09/07/21 11:27 36.4 C L 89 18 110/67 99 09/07/21 07:17 98 H 09/07/21 06:30 36.5 C 77 18 102/64 97 Laboratory Results Laboratory Results - last 24 hr 09/07/21 09/07/21 09/07/21 06:17 06:17 06:17 WBC 9.09 RBC 4.07 L Hgb 11.2 L Hct 33.8 L MCV 83.0 MCH 27.5 MCHC 33.1 RDW Std Deviation 51.3 H RDW Coeff of Trinh 17.2 H Plt Count 168 MPV 9.6 Immature Gran % (Auto) 0.3 Neut % (Auto) 76.7 Lymph % (Auto) 11.7 [place] % (Auto) 10.1 Eos % (Auto) 1.1 Baso % (Auto) 0.1 Neut # (Auto) 6.97 H Lymph # (Auto) 1.06 L [place] # (Auto) 0.92 H Eos # (Auto) 0.10 Baso # (Auto) 0.01 Immature Gran # (Auto) 0.03 H PT 32.9 H INR 3.3 H Sodium 140 Potassium 2.8 L Chloride 105 Carbon Dioxide 30 Anion Gap 5 BUN 17 Creatinine 1.21 Est Cr Clr Drug Dosing 45.8 Est GFR ( Amer) 64.7 Est GFR (Non-Af Amer) 55.8 Fasting Glucose 98 Calcium 7.1 L Phosphorus 2.7 Magnesium 1.9 Total Bilirubin 0.8 AST 52 H ALT 31 Alkaline Phosphatase 127 H Total Protein 5.1 L Albumin 2.1 L Globulin 3.0 Albumin/Globulin Ratio 0.7 L PG Care Time/CCT Total # of Minutes Spent Total Time Spent with Patient: Total time spent is greater than 50% in coordination of care (as documented) at patient's floor/unit and/or counseling patient: Coding Level of Care Code 20347 Subseq Hosp Care Lvl 2 Diagnoses Hematuria R31.9 Pleural effusion J90 Chronic diastolic (congestive) heart failure I50.32 Paroxysmal A-fib I48.0 CAD (coronary artery disease) I25.10 Hypertension I10 Hypertension type: essential hypertension BPH (benign prostatic hypertrophy) N40.0 Anxiety F41.9 Cerebrovascular disease I67.9 Anemia D64.9 Hypokalemia E87.6 Hypoxia R09.02 Acute cholecystitis K81.0 (1) Hypertension Hypertension type: essential hypertension Qualified Code(s): I10 - Essential (primary) hypertension
[2021-09-07] MEDS ORDERED: PHYTONADIONE 5 MG in DEXTROSE 5% 50 ML IV ONE (17:00)
[2021-09-07] MEDS: cefTRIAXone SODIUM 2,000 MG in DEXTROSE 5% 50 ML IV SCH (17:10)
--- NOTE | 2021-09-07 17:11 | Surgery Consultation ---
Date of Consultation September 07, 2021 Assessment & Plan (1) Acute cholecystitis: pt is a 81 year-old male who was admitted to hospital for right chest wall pain 4 days ago, HIDA scan- acute cholecystitis, IMP: acute cholecystitis, Plan, recommend to order U/S to R/O gallstone, may indication for cholecystomy if gallstone present, base on significant co-morbilities pt may need to transfer higher level for cholecystectomy, conservative treatment now, pt can have diet after U/S study, will F/u, History of Present Illness Reason for Consultation: cholecystitis Requesting Physician: Samantha Ramirez MD Attending Physician: Samantha Ramirez MD History of Present Illness CC: right chest wall pain 81yo M w/ hx of left-sided kidney stones s/p stenting who presents with hematuria and concern for UTI despite recent finishing of abx. The patient was discharged on 08/29 back to [facility] where he lives and reports he was doing fairly well overall. He reports an interval improvement in his shortness of breath and cough after being admitted for aspiration pneumonia. He reports that he thought his urine was normal on return, but his sister says that the urine was quite bloody on Sunday when she came to visit him. He is not eating as well there, and she is also worried about his weight loss. The patient reports some "mild" dysuria and reports he has been cold from time to time and required the heat to be turned up. Today, he reports severe right-sided flank pain which is what he reports actually brought him to the ER. There is a modest size nodule on the right side of his chest wall which is exquisitely tender to palpation or even light touch. He does not recall exactly when he noticed this, but thinks it has been at least 2-3 days. I ( Amy Boyd MD) got a call for consult cholecystitis, I reviewed pt's H/P labs, CT scan, HIDA scan with pt, pt denies abdominal pain, no right side chest pain now, pt denies nausea, no vomiting, no fever, HIDA scan today- cholecystitis, Allergies Allergy/AdvReac Type Severity Reaction Status Date / Time guaifenesin AdvReac Intermediate GETS Verified 08/25/21 08:11 REALLY SICK FROM MUCINEX Home Medications Medication Instructions Recorded Confirmed Type amiodarone 200 mg tablet 200 mg PO QAM #30 tab 04/20/21 08/26/21 Rx aspirin 81 mg tablet,delayed 81 mg PO DAILY #30 tab 04/20/21 08/26/21 Rx release docusate sodium 100 mg tablet 100 mg PO BID #60 tab 04/20/21 08/26/21 Rx famotidine 20 mg tablet 20 mg PO BID #60 tab 04/20/21 08/26/21 Rx furosemide 20 mg tablet 20 mg PO MOWEFR@0900 #20 tab 04/20/21 2 Rx metoprolol succinate 25 mg 12.5 mg PO QAM #30 tab 04/20/21 08/26/21 R x tablet,extended release 24 hr bisacodyl 10 mg rectal suppository 10 mg MI UD PRN 05/18/2108/26 History (Dulcolax (bisacodyl)) magnesium hydroxide 400 mg/5 mL 30 ml PO DAILY PRN 05/18/21 08/26/21 History oral suspension (Milk of Magnesia) multivitamin 1 tab PO QPM 05/18/21 08/26/21 History tamsulosin 0.4 mg capsule 0.4 mg PO HS #30 cap 05/23/21 08/26/21 Rx acetaminophen 325 mg tablet 650 mg PO Q6 PRN 08/23/21 08/26/21 His tory acetaminophen 325 mg tablet 650 mg PO Q8 PRN 08/23/21 08/26/21 His tory atorvastatin 40 mg tablet 40 mg PO QPM 08/23/21 08/26/21 Histo ry benzonatate 100 mg capsule 100 mg PO TID 08/23/21 08/26/21 Hist ory bupropion HCl 150 mg 24 hr tablet, 150 mg PO QAM 08/23/2108/26 History extended release (Wellbutrin XL)E polyethylene glycol 3350 17 17 g PO DAILY 08/23/21 08/26/21 His tory gram/dose oral powder (Miralax) sodium phosphates 19 gram-7 118 ml MI DAILY PRN 08/23/21 08/26/21 His tory gram/118 mL enema (Fleet Enema) phenazopyridine 200 mg tablet 200 mg PO Q8H PRN #10 tab 08/25/2108/04 4/22 Rx (Pyridium) amoxicillin 875 mg-potassium 1 tab PO BID #8 tab 08/29/21 Rx clavulanate 125 mg tablet doxycycline hyclate 100 mg capsule 100 mg PO BID #8 cap 08/29/21 Rx warfarin 2 mg tablet 2 mg PO DAILY@1600 #0 tab 08/29/21 Rx Past Med/Surg History Medical History A-fib On CoumadinAnxiety Aortic aneurysm S/p thoracic aneurysm repair 2015 Per 04/04/21 abdomen/pelvis CT " There is no evidence for focal aneurysmal dilatation of the abdominal aorta. 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 per 04/20/21 discharge summary On ASA and Coumadin History of TIA prior to CVAChronic diastolic (congestive) heart failure EF 55-60%Chronic kidney disease stage 3COPD (chronic obstructive pulmonary disease) Dyslipidemia GERD (gastroesophageal reflux disease) History of basal cell carcinoma of skin History of COVID-19 04/04/21 per recordsHistory of sepsis Admitted Apr 2021 - dx'ed with complicated UTI and sepsisHistory of squamous cell carcinoma of skin HTN (hypertension) Impaired gait and mobility MRSA nasal colonization Neuropathy Pneumonia History of Covid pneumonia- dx'ed Mar/Apr 2021- treated with steroidsVenous insufficiency Surgical History H/O arthroscopic knee surgery H/O thoracic aortic aneurysm repair History of aortic valve replacement 11/22/2015 - Dr. Mayo [place] [place] No mention of AVR in recent cardio recordsHistory of cataract surgery bilateralHistory of cystoscopy (04/04/21) with retrograde and left uretral stent placed and stent exchangesKnee joint replacement status RightS/P CABG x 1 Family History Other Diabetes Hypertension Social History Smoking Status: Former smoker Tobacco Type: Cigarettes Cigarettes Per Day: Former smoker; Second Hand Exposure: No; Hx Alcohol Use: No Hx Substance Use: No Preferred Language: Swedish Communication Ability: Effective Visual Impairment: Limited Hearing Ability: Hard of Hearing Heater Furnace Required: No Beliefs That Will Affect Care: None marital status: Unknown Current Living Situation: Correction Current Living Situation Comment: [facility] current occupational status: retired How many Children do You have: 2 Feels Safe at Home: Yes Review of Systems Review of Systems: All systems reviewed & are unremarkable except as noted in HPI & below HPI: pt is a 81 year-old male who was admit to hospital for right chest wall pain 4 days ago, I got a call for consult cholecystitis, Allergies Allergy/AdvReac Type Severity Reaction Status Date / Time guaifenesin AdvReac Intermediate GETS Verified 09/03/21 15:16 REALLY SICK FROM MUCINEX Home Medications Medication Instructions Recorded Confirmed Type amiodarone 200 mg tablet 200 mg PO QAM #30 tab 04/20/21 09/03/21 Rx aspirin 81 mg tablet,delayed 81 mg PO DAILY #30 tab 04/20/21 09/03/21 Rx release docusate sodium 100 mg tablet 100 mg PO BID #60 tab 04/20/21 09/03/21 Rx famotidine 20 mg tablet 20 mg PO BID #60 tab 04/20/21 09/03/21 Rx furosemide 20 mg tablet 20 mg PO MOWEFR@0900 #20 tab 04/20/21 09/03/21 Rx metoprolol succinate 25 mg 12.5 mg PO QAM #30 tab 04/20/21 09/03/21 Rx tablet,extended release 24 hr bisacodyl 10 mg rectal suppository 10 mg MI UD PRN 05/18/21 09/03/21 History (Dulcolax (bisacodyl)) magnesium hydroxide 400 mg/5 mL 30 ml PO DAILY PRN 05/18/21 09/03/21 History oral suspension (Milk of Magnesia) tamsulosin 0.4 mg capsule 0.4 mg PO HS #30 cap 05/23/21 09/03/21 Rx acetaminophen 325 mg tablet 650 mg PO Q6 PRN MDD 3g 08/23/21 09/03/21 History acetaminophen 325 mg tablet 650 mg PO Q6 PRN MDD 3g 08/23/21 09/03/21 History bupropion HCl 150 mg 24 hr tablet, 150 mg PO QAM 08/23/21 09/03/21 History extended release (Wellbutrin XL) polyethylene glycol 3350 17 17 g PO DAILY 08/23/21 09/03/21 History gram/dose oral powder (Miralax) sodium phosphates 19 gram-7 118 ml MI DAILY PRN 08/23/21 09/03/21 History gram/118 mL enema (Fleet Enema) phenazopyridine 200 mg tablet 200 mg PO Q8H PRN #10 tab 08/25/21 09/03/21 Rx (Pyridium) warfarin 2 mg tablet 2 mg PO DAILY@1600 #0 tab 08/29/21 09/03/21 Rx benzonatate 100 mg capsule 100 mg PO TID 09/03/21 09/03/21 History ceftriaxone 1 gram solution for 1 g IM DAILY 09/03/21 09/03/21 History injection lidocaine HCl 10 mg/mL (1 %) 2.1 ml IM DAILY 09/03/21 09/03/21 History injection solution multivitamin with minerals 1 tab PO QPM 09/03/21 09/03/21 History (Multiple Vitamin-Minerals) Patient History Medical History A-fib On Coumadin Anxiety Aortic aneurysm S/p thoracic aneurysm repair 2015 Per 04/04/21 abdomen/pelvis CT " There is no evidence for focal aneurysmal dilatation of the abdominal aorta. 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 per 04/20/21 discharge summary On ASA and Coumadin History of TIA prior to CVA Chronic diastolic (congestive) heart failure EF 55-60% Chronic kidney disease stage 3 COPD (chronic obstructive pulmonary disease) Dyslipidemia GERD (gastroesophageal reflux disease) History of basal cell carcinoma of skin History of COVID-19 04/04/21 per records History of sepsis Admitted Apr 2021 - dx'ed with complicated UTI and sepsis History of squamous cell carcinoma of skin HTN (hypertension) Impaired gait and mobility MRSA nasal colonization Neuropathy Pneumonia History of Covid pneumonia- dx'ed Mar/Apr 2021- treated with steroids Venous insufficiency Surgical History H/O arthroscopic knee surgery H/O thoracic aortic aneurysm repair History of aortic valve replacement 11/22/2015 - Dr. Mayo Phoenix [place] [place] records No mention of AVR in recent cardio records History of cataract surgery bilateral History of cystoscopy (04/04/21) with retrograde and left uretral stent placed and stent exchanges Knee joint replacement status Right S/P CABG x 1 Family History Other Diabetes Hypertension Social History Smoking Status: Never smoker Tobacco Type: Cigarettes Cigarettes Per Day: Former smoker; Second Hand Exposure: No; Hx Alcohol Use: No Hx Substance Use: No Preferred Language: Swedish Communication Ability: Effective Visual Impairment: Limited Hearing Ability: Hard of Hearing Heater Furnace Required: No Beliefs That Will Affect Care: None marital status: Current Living Situation: Correction Current Living Situation Comment: [facility] current occupational status: retired How many Children do You have: 2 Feels Safe at Home: Yes Assistive Devices: Glasses, Walker and Wheelchair Physical Exam Constitutional: WD/WN, vitals as above no distress Eyes: PERRL, conjunctivae normal, anicteric sclerae Neck: trachea midline, no thyromegaly Respiratory: decrease lung sound on right side, Cardiovascular: A-Fib Gastrointestinal (Abdomen): soft, NT , ND, BS + Neurologic: patellar DTR's 2+ bilat, sensation intact Psychiatric: A+Ox3, euthymic affect Results & Data ([facility]) Vital Signs (Past 12 Hours) Vital Signs Temp Pulse Pulse Resp BP BP Pulse Ox 09/07/21 16:03 96 H 09/07/21 14:48 36.3 C L 100 H 20 110/72 94 09/07/21 11:27 36.4 C L 89 18 110/67 99 09/07/21 07:17 98 H 09/07/21 06:30 36.5 C 77 18 102/64 97 Laboratory Results Abnormal lab results 09/07/21 09/07/21 09/07/21 Range/Units 06:17 06:17 06:17 RBC 4.07 L (4.7-6.1) M/uL Hgb 11.2 L (14.0-18.0) g/dL Hct 33.8 L (42-52) % RDW Std Deviation 51.3 H (36.4-46.3) fL RDW Coeff of Trinh 17.2 H (11.5-14.5) % Neut # (Auto) 6.97 H (1.4-6.5) K/uL Lymph # (Auto) 1.06 L (1.2-3.4) K/uL Starr # (Auto) 0.92 H (0.11-0.59) K/uL Immature Gran # (Auto) 0.03 H (0.00-0.02) K/uL PT 32.9 H (9.0-12.0) Seconds INR 3.3 H (0.9-1.1) Potassium 2.8 L (3.5-5.1) mmol/L Calcium 7.1 L (8.5-10.1) mg/dl AST 52 H (13-39) U/L Alkaline Phosphatase 127 H (34-104) U/L Total Protein 5.1 L (6.0-8.3) gm/dl Albumin 2.1 L (3.4-5.0) gm/dl Albumin/Globulin Ratio 0.7 L (0.9-2) Diagnostic Findings NUCLEAR MEDICINE HEPATOBILIARY SCAN CLINICAL HISTORY: Abnormal liver function tests. COMPARISON: CT of the abdomen and pelvis September 03, 2021. TECHNIQUE: 5.6 mCi of technetium 99m Choletec IV was injected at 12:52 PM on September 07, 2021. Immediately following injection, imaging of the abdomen was carried out for 60 minutes in the anterior projection. Gallbladder activity was not identified at 60 minutes. Therefore, 2 mg of morphine was administered IV as per protocol and imaging was carried out for an additional 30 minutes. FINDINGS: Hepatic uptake of radiotracer is prompt and homogeneous. Activity is identified within the common bile duct and small bowel at 15 minutes. Gallbladder activity was not identified at 60 minutes. Morphine was administered. No gallbladder activity was identified 30 minutes following morphine administration. These findings indicate cystic duct obstruction and suggest acute cholecystitis. IMPRESSION: Nonvisualization of gallbladder activity following morphine administration indicative of cystic duct obstruction. The findings are consistent with acute cholecystitis. CT abd pelvis wo con CLINICAL HISTORY: rt side pain, eval for obst uropathy TECHNIQUE: Helical axial images of the abdomen and pelvis were obtained. Automated dose lowering techniques and/or adjustment according to patient size were utilized for this exam. This exam was performed without intravenous contrast. COMPARISON: Comparison is made to CT abdomen pelvis 08/26/2021 FINDINGS: Exam is limited by streak artifact. This is likely due to patient positioning outside the field of view Lower chest: For findings above the diaphragm, please see CT chest performed same day. Liver: Unremarkable. No focal lesions are seen. Gallbladder and biliary tree: Distention of the gallbladder is seen, similar in extent to prior exam. No intra- or extrahepatic biliary ductal dilation. Pancreas: Unremarkable, no focal lesions. Spleen: Unremarkable. Adrenals: Unremarkable. Kidneys and ureters: A left nephroureteral stent is seen. Bladder: Limited evaluation due to underdistention. Reproductive organs: Prostatic calcifications are seen which may represent prior hemorrhage or granulomatous disease. Bowel: Incidental note is made of a particular. A hiatal hernia is noted. No bowel obstruction is seen. Lymph nodes Retroperitoneal: Unremarkable. Mesenteric: Unremarkable. Pelvic: Unremarkable. Peritoneum: Normal. Vessels: Atherosclerotic calcifications are seen. Abdominal wall: Unremarkable. Bones: Degenerative changes in the visualized spine. IMPRESSION: 1. No acute abnormalities and in particular no evidence of no evidence of right-sided obstructive uropathy. A left nephroureteral stent is seen without evidence of hydronephrosis. 2. Extensive atherosclerotic disease.
--- NOTE | 2021-09-07 17:34 | XRay Report ---
XR chest 2V PA/lateral CLINICAL HISTORY: Follow-up pleural effusion and cough. COMPARISON STUDY: 09/03/2021 TECHNIQUE: 2 views of the chest FINDINGS: Frontal and lateral radiographs of the chest demonstrate the heart to again be enlarged status post p revious cardiothoracic surgery. There is a large right pleural effusion with compressive atelectasis/ collapse involving the right middle and right lower lobes. The left hemithorax is clear. There is no evidence for left pleural effusion. There is no evidence for vascular congestion. There is no acute o sseous pathology. IMPRESSION: 1. Persistent large right pleural effusion with compressive atelectasis/collapse involving the right middle and right lower lobes. ACT 112: Negative or not required by law. Electronically signed by: Tripp Tse M.D. 09/07/2021 5:33 PM
[2021-09-07] MEDS: metroNIDAZOLE 500 MG/100 ML BAG IV SCH (18:25)
[2021-09-07] MEDS: TAMSULOSIN HCL 0.4 MG CAP PO SCH (20:23)
[2021-09-08] MEDS: metroNIDAZOLE 500 MG/100 ML BAG IV SCH ×3 (01:56→17:05)
[2021-09-08] MEDS: FAMOTIDINE 20 MG TAB PO SCH ×2 (09:20→22:33)
[2021-09-08] MEDS: ASPIRIN 81 MG ECTAB PO SCH (09:20)
[2021-09-08] MEDS: METOPROLOL SUCC 25MG EXT REL TAB PO SCH (09:20)
[2021-09-08] MEDS: AMIODARONE 200 MG TAB PO SCH (09:20)
[2021-09-08] MEDS: buPROPion XL 150 MG TABCR PO SCH (09:20)
[2021-09-08] MEDS: FUROSEMIDE 40 MG TAB PO SCH (09:20)
[2021-09-08] MEDS: BENZONATATE 100 MG CAPSULE PO SCH ×3 (09:20→22:33)
[2021-09-08] MEDS: LIDOCAINE 5% 1 PATCH TD SCH ×2 (09:21→11:10)
[2021-09-08 09:27] LABS: Basophils # (auto) 0.03 K/uL (0-0.2); Basophils % (auto) 0.3 %; Eosinophils # (auto) 0.09 K/uL (0-0.50); Eosinophils % (auto) 0.8 %; Hematocrit (blood only) 34.3 % (40.1-51.0); Immature Granulocytes # (auto) 0.08 K/uL (0.00-0.02); Immature Granulocytes % (auto) 0.7 %; Lymphocytes # (auto) 0.86 K/uL (1.2-3.4); Mean Corpuscular Hemoglobin 27.4 pg (25.0-34.0); Mean Corpuscular Hgb Conc 32.1 g/dL (32.0-36.0); Mean Corpuscular Volume 85.5 fL (80.0-100.0); Mean Platelet Volume 9.9 fL (9.4-12.4); Monocytes # (auto) 0.76 K/uL (0.24-0.82); Monocytes % (auto) 7.1 %; Neutrophils # (auto) 8.89 K/uL (1.4-6.5); Neutrophils % (auto) 83.1 %; Platelet Count 188 K/uL (130-400); RDW Coefficient of Variation 17.2 % (11.5-14.5); RDW Standard Deviation 52.5 fL (36.4-46.3); Red Blood Count 4.01 M/uL (4.63-6.08); White Blood Count 10.71 K/ul (4.8-10.8)
[2021-09-08 09:39] LABS: INR 1.5 (0.9-1.1); Prothrombin Time 16.1 Seconds (9.0-12.0)
[2021-09-08 09:45] LABS: Albumin Globulin Ratio 0.7 (0.9-2); Albumin Level 2.1 gm/dl (3.4-5.0); Bilirubin,Total 0.9 mg/dl (0.2-1.0); Calcium 7.4 mg/dl (8.5-10.1); Creatinine Clr Calc Pharmacy 50.4 ml/min; Est GFR (African American) 72.6 ml/min; Est GFR (Non-African American) 62.6 ml/min; Globulin 3.1 gm/dl (2.5-4.0); Magnesium 1.8 mg/dl (1.7-2.4); Phosphorus 2.5 mg/dl (2.5-4.9); Potassium 3.8 mmol/L (3.5-5.1); Total Protein 5.2 gm/dl (6.0-8.3)
--- NOTE | 2021-09-08 09:47 | Ultrasound Report ---
US abdomen limited HISTORY: 81 years-old Male cholecystitis acute right upper quadrant abdominal pain COMPARISON: CT abdomen and pelvis 09/03/2021, nuclear medicine hepatobiliary scan 09/07/2021 TECHNIQUE: Multiple real-time sonographic images of the abdominal right upper quadrant were obtained assessing grayscale appearance and color flow FINDINGS: Limited exam secondary to patient movement throughout the study. Nonvisualization of the pancreas. Nonspecific heterogeneous appearance of the liver without hepatic m ass identified. There is suggested marginal nodularity of the liver with ascites. Right pleural effus ion. Distended gallbladder measures 12 cm in length. Biliary sludge is noted with the gallbladder wal l measuring 4 mm. No shadowing cholelithiasis identified. Negative sonographic Tse's sign. Common bile duct measures 7 mm. IMPRESSION: 1. Distended sludge-filled gallbladder with wall thickening. These findings in conjunction with yeste rday's hepatobiliary scan are compatible with acute cholecystitis. 2. Right pleural effusion with ascites. 3. No biliary ductal dilation. ACT 112: Negative or not required by law. The above report was generated using voice recognition software. It may contain grammatical, syntax o r spelling errors. Electronically signed by: Kirill Hernandez M.D. 09/08/2021 9:44 AM
--- NOTE | 2021-09-08 10:55 | Surgery Progress Note ---
Date of Service September 08, 2021 Assessment & Plan (1) Acute cholecystitis: Plan: pt is a 81 year-old male who was admitted to hospital for right chest wall pain 4 days ago, HIDA scan- acute cholecystitis, IMP: acute cholecystitis, Plan, recommend to order U/S to R/O gallstone, may indication for cholecystomy if gallstone present, base on significant co-morbilities pt may need to transfer higher level for cholecystectomy, conservative treatment now, pt can have diet after U/S study, will F/u, 09/08/2021 10:58AM cholecystitis with gallbladder sludge, base on pt has no abdominal pain, no vomiting or nausea, no fever, normal WBC, and his high risks for cholecystec hilario, D/W benefits, risks and alternatives of the laparoscopic cholecystectomy, pt said he dose not want to take the risks, he wants to do conservative treatment first, antibiotic for 5 days, start diet today, lovenox 30 mg SC once a day, once pt tolerated diet, he can be resumed coumadin, if pt needs cholecystectomy , I recommend to transfer higher level care for surgery, follow up ga 2 weeks , Admission and Anticipated Discharge Date Admission Date: September 03, 2021 Subjective Follow-up of original presentation with hematuriano specific complaints 09/08/2021 10:54AM, Dr. Boyd, F/u U/S - MPRESSION: 1. Distended sludge-filled gallbladder with wall thickening. These findings in conjunction with yesterday's hepatobiliary scan are compatible with acute cholecystitis. 2. Right pleural effusion with ascites. pt denies abdominal pain, no nausea, no vomiting, no fever, normal WBC, Physical Exam Constitutional: WD/WN, vitals as above Eyes: PERRL, conjunctivae normal, anicteric sclerae Neck: trachea midline, no thyromegaly Respiratory: decrease lung sound on right chest, Gastrointestinal (Abdomen): soft, NT, Nd, BS +. Neurologic: patellar DTR's 2+ bilat, sensation intact Psychiatric: A+Ox3, euthymic affect Results & Data ([facility]) Vital Signs (Past 12 Hours) Vital Signs Temp Pulse Pulse Resp BP BP Pulse Ox 09/08/21 10:54 36.6 C 97 H 18 118/73 95 09/08/21 07:49 92 H 09/08/21 07:36 36.6 C 93 H 20 104/61 98 09/08/21 03:09 36.5 C 90 20 101/61 94 09/07/21 23:29 36.4 C L 92 H 16 100/60 92 Laboratory Results Abnormal lab results 09/08/21 09/08/21 09/08/21 Range/Units 09:04 09:04 09:04 RBC 4.01 L (4.63-6.08) M/uL Hgb 11.0 L (14.0-18.0) g/dl Hct 34.3 L (40.1-51.0) % RDW Std Deviation 52.5 H (36.4-46.3) fL RDW Coeff of Trinh 17.2 H (11.5-14.5) % Neut # (Auto) 8.89 H (1.4-6.5) K/uL Lymph # (Auto) 0.86 L (1.2-3.4) K/uL Immature Gran # (Auto) 0.08 H (0.00-0.02) K/uL PT 16.1 H (9.0-12.0) Seconds INR 1.5 H (0.9-1.1) Calcium 7.4 L (8.5-10.1) mg/dl AST 47 H (13-39) U/L Alkaline Phosphatase 126 H (34-104) U/L Total Protein 5.2 L (6.0-8.3) gm/dl Albumin 2.1 L (3.4-5.0) gm/dl Albumin/Globulin Ratio 0.7 L (0.9-2) Diagnostic Findings US abdomen limited HISTORY: 81 years-old Male cholecystitis acute right upper quadrant abdominal pain COMPARISON: CT abdomen and pelvis 09/03/2021, nuclear medicine hepatobiliary scan 09/07/2021 TECHNIQUE: Multiple real-time sonographic images of the abdominal right upper quadrant were obtained assessing grayscale appearance and color flow FINDINGS: Limited exam secondary to patient movement throughout the study. Nonvisualization of the pancreas. Nonspecific heterogeneous appearance of the liver without hepatic mass identified. There is suggested marginal nodularity of the liver with ascites. Right pleural effusion. Distended gallbladder measures 12 cm in length. Biliary sludge is noted with the gallbladder wall measuring 4 mm. No shadowing cholelithiasis identified. Negative sonographic Tse's sign. Common bile duct measures 7 mm. IMPRESSION: 1. Distended sludge-filled gallbladder with wall thickening. These findings in conjunction with yesterday's hepatobiliary scan are compatible with acute cholecystitis. 2. Right pleural effusion with ascites. 3. No biliary ductal dilation.
--- NOTE | 2021-09-08 11:58 | Hospitalist Progress Note ---
Date of Service September 08, 2021 Assessment & Plan (1) Acute cholecystitis: Plan: Surgery follow-up noted; continue antibiotics (2) Hematuria: Plan: Minimal to resolvedfollow clinically (3) Pleural effusion: Plan: Impressively present; diurese more, might need thoracocentesis (4) Paroxysmal A-fib: Plan: Clinically regular, heart rate control, follow; Coumadin on hold (5) CAD (coronary artery disease): Plan: S/p CABG x 1 vessel - Nov 2015. - Continue home ASA, beta-carrington, and statin (6) Hypertension: Plan: BP in the ER was 120/70. 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 - Meds as above (10) Anemia: Plan: Follow (11) Hypokalemia: Plan: Replace as necessary (12) Hypoxia: Plan: Likely due to fluid overload, pleural effusiondiuresis (13) Acute on chronic diastolic (congestive) heart failure: Plan: Increase diuresis, will need to follow potassium, added spironolactone Plan: Excoriation perianalwound care consulted Admission and Anticipated Discharge Date Admission Date: September 03, 2021 Subjective Follow-up of original presentation with hematuriano specific complaints even today Physical Exam Physical Exam: Constitutional and general: No acute distress, looks biologic age; somewhat chronically ill; mildly confused Head and face: No puffiness, atraumatic Eyes: No scleral icterus, extraocular movements normal Neck: Supple, no JVD Musculoskeletal: No acute joint swelling, no bony abnormalities Skin/dermatologic/integument: No rash, no purpura Hematologic and lymphatic: pallor +, no petechia Gastrointestinal/abdomen: Nondistended, soft, nonacute Neurologic: Cranial nerves intact, nonfocal Psychiatry: Awake, alert, pleasant, communicative Cardiovascular: Heart rhythm regular, no rub, no murmur, no gallop Respiratory: Chest movements equal, no use of accessory muscles, no adventitious sounds Extremities: edema (+), stasis changes, no cyanosis Results & Data Results & Data ([facility]) Vital Signs (Past 12 Hours) Vital Signs Temp Pulse Pulse Resp BP Pulse Ox 09/08/21 10:54 36.6 C 97 H 18 118/73 95 09/08/21 07:49 92 H 09/08/21 07:36 36.6 C 93 H 20 104/61 98 09/08/21 03:09 36.5 C 90 20 101/61 94 PG Care Time/CCT Total # of Minutes Spent Total Time Spent with Patient: Total time spent is greater than 50% in coordination of care (as documented) at patient's floor/unit and/or counseling patient: Coding Level of Care Code 16035 Subseq Hosp Care Lvl 2 Diagnoses Acute cholecystitis K81.0 Hematuria R31.9 Pleural effusion J90 Paroxysmal A-fib I48.0 CAD (coronary artery disease) I25.10 Hypertension I10 Hypertension type: essential hypertension BPH (benign prostatic hypertrophy) N40.0 Anxiety F41.9 Cerebrovascular disease I67.9 Anemia D64.9 Hypokalemia E87.6 Hypoxia R09.02 Acute on chronic diastolic (congestive) heart failure I50.33 (1) Hypertension Hypertension type: essential hypertension Qualified Code(s): I10 - Essential (primary) hypertension
[2021-09-08] MEDS: POTASSIUM CHLORIDE 10 MEQ TABCR PO SCH (12:33)
[2021-09-08] MEDS: SPIRONOLACTONE 25 MG TAB PO SCH (12:33)
[2021-09-08] MEDS: ENOXAPARIN INJ 40 MG/0.4 ML SYR SQ SCH (12:57)
[2021-09-08] MEDS ORDERED: FUROSEMIDE INJ 20 MG/2 ML VIAL IV ONE (14:00)
--- NOTE | 2021-09-08 15:13 | Procedure Note ---
Procedure Note Date of Service September 08, 2021 Note INDICATION: Pleural Effusion PROCEDURE: Paracentesis DATE: 09/08/2021 TIME: 14:50 PROVIDER: Performed by Rusty Steele DO under the supervision of Seven Murray MD and Robert Espinoza PA-C CONSENT: Was obtained prior to the procedure by Dr. Murray and placed on the chart PROCEDURE SUMMARY: Bedside ultra sound was performed to identify an appropriate puncture site. Images were saved to the [employer] system. A time out was performed. The patient was prepped and draped in a sterile manner using chlorhexidine scrub after the appropriate level was confirmed by ultrasound. 1% lidocaine was used to numb the region. A finder needle was then used under negative pressure to locate fluid and instill lidocaine into the pleural space. A small incision was made with a #10 scalpel. A needle with overlying catheter was advanced using negative pressure on the syringe until a pleural flash was obtained. The thoracentesis catheter was then threaded without difficulty and without any bleeding. The patient had 1900 mL of cloudy fluid removed at 500ml, the fluid became more serosanguinous. The incision site was then covered with two Band-Aids with no evidence of bleeding. Pt had chest pain and increased cough which was the indication to stop drawing any additional fluid past 1900mL. Dr. Nieto was contacted after the procedure with results. A post-procedure chest x-ray was pending at the time this note was written. The patient tolerated the procedure well with no shortness of breath, no hypotension, no increase in heart rate, but did have some chest pain and cough as above. Coding
--- NOTE | 2021-09-08 15:44 | Pulmonary Consultation ---
Date of Consultation September 08, 2021 Assessment & Plan (1) Acute on chronic diastolic (congestive) heart failure: (2) Pleural effusion: (3) Hypoxia: (4) Paroxysmal A-fib: (5) History of tobacco abuse: Attending: Dr. Murray Impression: 81-year-old male admitted for UTI, cholecystitis, fluid overload, new right-sided pleural effusion. Patient has a 27-lxtp-zjor smoking history but states that he quit smoking several years ago. He has no history of pulmonary disease per his description other than may be some mild emphysema. Patient had chest pain on arrival this is resolved. Patient denies any use of inhalers. He has no reports of obstructive sleep apnea or other obstructive disease. Recommendations: 1. Right pleural effusion: * Patient denies history of previous thoracentesis * Most likely etiology is congestive heart failure and CAD. Patient has failed diuresis with regards to clearing of the pleural effusion. Risk versus benefits of bedside thoracentesis was explained to the patient. He elected to proceed with the procedure. * Right-sided thoracentesis was performed by Rusty Steele DO, R2 under the direct supervision of Dr. Murray * There were no complications with the procedure. Approximately 1900 cc of cloudy straw-colored fluid was evacuated. It should be noted that approximately 500 cc patient's fluid became serosanguineous * Pleural fluid was sent to laboratory for evaluation and analysis * Attending hospitalist was notified of the completion of the procedure. * Post procedure chest x-ray shows near resolution of the effusion. No further surveillance is required. Would manage supportively 2. History of tobacco abuse: * Patient reports a past tobacco use history of approximately 50 pack years. He states that he quit smoking several years ago * Continue to encourage complete abstention of tobacco products 3. Paroxysmal atrial fibrillation: * Patient is chronically anticoagulated with warfarin * INR was checked prior to the procedure today and it was 1.5 * No further indication for invasive procedure per pulmonary. Can restart Coumadin tomorrow as coordinated with hospitalist team Thank you for including us in the care of this patient. The pulmonary service will sign off at this time. Please feel free to call with further questions or reconsult. Supervising Physician Co-Signing Physician Notes Patient seen and examined. EMR reviewed. Films independently reviewed. Discussed with pulmonary LUCERO and agree with assessment plan as noted. 81-year-old male with pleural effusion of unclear etiology. Could be related to heart failure or sympathetic effusion related to the patient's right upper quadrant processes. Thoracentesis is indicated. Warfarin has been held and his INR is therapeutic. Consent was obtained for thoracentesis. Please refer to vero roger notes. We will follow-up with imaging post procedure and with pleural fluid studies. Feel free to contact us with additional questions or concerns History of Present Illness Reason for Consultation: Evaluation of right pleural effusion Requesting Physician: Dr. Ramirez Attending Physician: Samantha Ramirez MD History of Present Illness Attending: Dr. Murray Is a very pleasant 81-year-old male that presents with right pleural effusion which appears to be new. Patient does have acute on chronic diastolic heart failure and evidence of acute cholecystitis. Reason for admission was hematuria with question of untreated urinary tract infection. Patient was admitted on 09/03/2021 and started on Zosyn. Over the course of the last several days, patient has been diuresed with minimal output and no improvement to the pleural effusion. Patient was noted to begin to have some hypoxia requiring 2 L of supplemental oxygen via nasal cannula. Patient denies any acute distress from a pulmonary standpoint. He has no chest pain or tightness at this time. Patient states that he has a 36-domp-goiz smoking history but currently does not smoke. Patient has history of paroxysmal atrial fibrillation is anticoagulated as an outpatient with warfarin. INR was 1.7 on admission. The warfarin was held and most recent INR is 1.5. Platelet count was greater than 100,000. Procedure was explained to the patient with risk versus benefit and patient elected to have procedure done. Dr. Murray was in the room at the time of this discussion and was agreeable to proceed with thoracentesis. Allergies Allergy/AdvReac Type Severity Reaction Status Date / Time guaifenesin AdvReac Intermediate GETS Verified 09/03/21 15:16 REALLY SICK FROM MUCINEX Home Medications Medication Instructions Recorded Confirmed Type amiodarone 200 mg tablet 200 mg PO QAM #30 tab 04/20/21 09/03/21 Rx aspirin 81 mg tablet,delayed 81 mg PO DAILY #30 tab 04/20/21 09/03/21 Rx release docusate sodium 100 mg tablet 100 mg PO BID #60 tab 04/20/21 09/03/21 Rx famotidine 20 mg tablet 20 mg PO BID #60 tab 04/20/21 09/03/21 Rx furosemide 20 mg tablet 20 mg PO MOWEFR@0900 #20 tab 04/20/21 09/03/21 Rx metoprolol succinate 25 mg 12.5 mg PO QAM #30 tab 04/20/21 09/03/21 Rx tablet,extended release 24 hr bisacodyl 10 mg rectal suppository 10 mg MI UD PRN 05/18/21 09/03/21 History (Dulcolax (bisacodyl)) magnesium hydroxide 400 mg/5 mL 30 ml PO DAILY PRN 05/18/21 09/03/21 History oral suspension (Milk of Magnesia) tamsulosin 0.4 mg capsule 0.4 mg PO HS #30 cap 05/23/21 09/03/21 Rx acetaminophen 325 mg tablet 650 mg PO Q6 PRN MDD 3g 08/23/21 09/03/21 History acetaminophen 325 mg tablet 650 mg PO Q6 PRN MDD 3g 08/23/21 09/03/21 History bupropion HCl 150 mg 24 hr tablet, 150 mg PO QAM 08/23/21 09/03/21 History extended release (Wellbutrin XL) polyethylene glycol 3350 17 17 g PO DAILY 08/23/21 09/03/21 History gram/dose oral powder (Miralax) sodium phosphates 19 gram-7 118 ml MI DAILY PRN 08/23/21 09/03/21 History gram/118 mL enema (Fleet Enema) phenazopyridine 200 mg tablet 200 mg PO Q8H PRN #10 tab 08/25/21 09/03/21 Rx (Pyridium) warfarin 2 mg tablet 2 mg PO DAILY@1600 #0 tab 08/29/21 09/03/21 Rx benzonatate 100 mg capsule 100 mg PO TID 09/03/21 09/03/21 History ceftriaxone 1 gram solution for 1 g IM DAILY 09/03/21 09/03/21 History injection lidocaine HCl 10 mg/mL (1 %) 2.1 ml IM DAILY 09/03/21 09/03/21 History injection solution multivitamin with minerals 1 tab PO QPM 09/03/21 09/03/21 History (Multiple Vitamin-Minerals) Patient History Medical History (Updated 09/08/21 @ 15:36 by Robert Espinoza PA-C) A-fib On Coumadin Anxiety Aortic aneurysm S/p thoracic aneurysm repair 2016 Per 04/04/21 abdomen/pelvis CT " There is no evidence for focal aneurysmal dilatation of the abdominal aorta. 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 per 04/20/21 discharge summary On ASA and Coumadin History of TIA prior to CVA Chronic diastolic (congestive) heart failure EF 55-60% Chronic kidney disease stage 3 COPD (chronic obstructive pulmonary disease) Dyslipidemia GERD (gastroesophageal reflux disease) History of basal cell carcinoma of skin History of COVID-19 04/04/21 per records History of sepsis Admitted Apr 2021 - dx'ed with complicated UTI and sepsis History of squamous cell carcinoma of skin History of tobacco abuse HTN (hypertension) Impaired gait and mobility MRSA nasal colonization Neuropathy Pneumonia History of Covid pneumonia- dx'ed Mar/Apr 2021- treated with steroids Venous insufficiency Surgical History H/O arthroscopic knee surgery H/O thoracic aortic aneurysm repair History of aortic valve replacement 11/22/2015 - Dr. Mayo [place] ([facility])- per records No mention of AVR in recent cardio records History of cataract surgery bilateral History of cystoscopy (04/04/21) with retrograde and left uretral stent placed and stent exchanges Knee joint replacement status Right S/P CABG x 1 Family History Other Diabetes Hypertension Social History Smoking Status: Never smoker Tobacco Type: Cigarettes Cigarettes Per Day: Former smoker; Second Hand Exposure: No; Hx Alcohol Use: No Hx Substance Use: No Preferred Language: Kyrgyz Communication Ability: Effective Visual Impairment: Limited Hearing Ability: Hard of Hearing Regional Director Of Finance Required: No Beliefs That Will Affect Care: None marital status: Current Living Situation: Care Home Current Living Situation Comment: [facility] current occupational status: retired How many Children do You have: 2 Feels Safe at Home: Yes Assistive Devices: Glasses, Walker and Wheelchair Review of Systems Review of Systems: A total of 10 systems was reviewed and is negative other than as listed in the HPI Physical Exam Physical Exam: GENERAL : No acute distress EYES: No icterus, gaze conjugate NOSE: No evidence of epistaxis MOUTH: No lesions or candidiasis NECK: Supple LUNGS: Bedside ultrasound confirmed right-sided pleural effusion. Status postthoracentesis patient was examined and has equal breath sounds bilaterally. There is no appreciated bronchospasm. Patient does have crackles and no appreciation of rhonchi. HEART: Regular, rate controlled ABDOMEN: Soft, NT, ND, BS Present EXTREMITIES: No LE edema, pedal pulses intact. Evidence of chronic venous stasis on both lower extremities NEURO: A&OX3 Results & Data Results & Data ([facility]) Vital Signs (Past 12 Hours) Vital Signs Temp Pulse Pulse Resp BP Pulse Ox 09/08/21 10:54 36.6 C 97 H 18 118/73 95 09/08/21 07:49 92 H 09/08/21 07:36 36.6 C 93 H 20 104/61 98 Critical Care Results & Data Vital Signs (Past 12 Hours) Vital Signs Temp Pulse Pulse Resp BP Pulse Ox 09/08/21 10:54 36.6 C 97 H 18 118/73 95 09/08/21 07:49 92 H 09/08/21 07:36 36.6 C 93 H 20 104/61 98 Lab & Micro Results (Past 24 Hours) RBC 4.01 M/uL (4.63-6.08) L 09/08/21 WBC 10.71 K/ul (4.8-10.8) 09/08/21 Hgb 11.0 g/dl (14.0-18.0) L 09/08/21 Hct 34.3 % (40.1-51.0) L 09/08/21 MCV 85.5 fL (80.0-100.0) 09/08/21 MCH 27.4 pg (25.0-34.0) 09/08/21 MCHC 32.1 g/dL (32.0-36.0) 09/08/21 RDW Standard Deviation 52.5 fL (36.4-46.3) H 09/08/21 RDW Coefficient of Variation 17.2 % (11.5-14.5) H 09/08/21 Plt Count 188 K/uL (130-400) 09/08/21 MPV 9.9 fL (9.4-12.4) 09/08/21 Neutrophils (%) (Auto) 83.1 % 09/08/21 Lymphocytes (%) (Auto) 8.0 % 09/08/21 Monocytes # (Auto) 0.76 K/uL (0.24-0.82) 09/08/21 Eosinophils # (Auto) 0.09 K/uL (0-0.50) 09/08/21 Immature Granulocyte % (Auto) 0.7 % 09/08/21 Neutrophils # (Auto) 8.89 K/uL (1.4-6.5) H 09/08/21 Lymphocytes # (Auto) 0.86 K/uL (1.2-3.4) L 09/08/21 Monocytes # (Auto) 0.76 K/uL (0.24-0.82) 09/08/21 Eosinophils # (Auto) 0.09 K/uL (0-0.50) 09/08/21 Basophils # (Auto) 0.03 K/uL (0-0.2) 09/08/21 Immature Granulocyte # (Auto) 0.08 K/uL (0.00-0.02) H 09/08/21 Na 139 mmol/L (136-145) 09/08/21 K 3.8 mmol/L (3.5-5.1) 09/08/21 Cl 106 mmol/L (98-107) 09/08/21 CO2 29 mmol/L (21-32) 09/08/21 Anion Gap 4 (3-11) 09/08/21 BUN 15 mg/dl (6-23) 09/08/21 Creatinine 1.10 mg/dl (0.6-1.4) 09/08/21 Estimated GFR ( Amer) 72.6 ml/min 09/08/21 Estimated GFR (Non-Af Amer) 62.6 ml/min 09/08/21 Ca 7.4 mg/dl (8.5-10.1) L 09/08/21 Phosphorus Level 2.5 mg/dl (2.5-4.9) 09/08/21 Total Bilirubin 0.9 mg/dl (0.2-1.0) 09/08/21 AST 47 U/L (13-39) H 09/08/21 ALT 28 U/L (7-52) 09/08/21 Alkaline Phosphatase 126 U/L (34-104) H 09/08/21 TP 5.2 gm/dl (6.0-8.3) L 09/08/21 Albumin 2.1 gm/dl (3.4-5.0) L 09/08/21 Globulin 3.1 gm/dl (2.5-4.0) 09/08/21 Albumin/Globulin Ratio 0.7 (0.9-2) L 09/08/21 Mg 1.8 mg/dl (1.7-2.4) 09/08/21 09:04 09/08/21 Calcium Level 7.4 mg/dl (8.5-10.1) L 09/08/21 09:04 09/08/21 Prothromb Time International Ratio 1.5 (0.9-1.1) H 09/08/21 09:04 09/08/21 Microbiology 09/03/21 11:08 Aerobic Blood Culture - Final Blood No growth in Aerobic bottle after 5 days. Anaerobic Blood Culture - Final No growth in Anaerobic bottle after 5 days. 09/03/21 09:54 Aerobic Blood Culture - Final Blood No growth in Aerobic bottle after 5 days. Anaerobic Blood Culture - Final No growth in Anaerobic bottle after 5 days. Diagnostic Findings (Past 24 Hours) Chest X-Ray 09/07/21 07:11 XR chest 2V PA/lateral CLINICAL HISTORY: Follow-up pleural effusion and cough. COMPARISON STUDY: 09/03/2021 TECHNIQUE: 2 views of the chest FINDINGS: Frontal and lateral radiographs of the chest demonstrate the heart to again be enlarged status post previous cardiothoracic surgery. There is a large right pleural effusion with compressive atelectasis/collapse involving the right middle and right lower lobes. The left hemithorax is clear. There is no evidence for left pleural effusion. There is no evidence for vascular congestion. There is no acute osseous pathology. IMPRESSION: 1. Persistent large right pleural effusion with compressive atelectasis/collapse involving the right middle and right lower lobes. ACT 112: Negative or not required by law. Electronically signed by: Tripp Tse M.D. 09/07/2021 5:33 PM Abdomen Ultrasound 09/08/21 17:25 US abdomen limited HISTORY: 81 years-old Male cholecystitis acute right upper quadrant abdominal pain COMPARISON: CT abdomen and pelvis 09/03/2021, nuclear medicine hepatobiliary scan 09/07/2021 TECHNIQUE: Multiple real-time sonographic images of the abdominal right upper quadrant were obtained assessing grayscale appearance and color flow FINDINGS: Limited exam secondary to patient movement throughout the study. Nonvisualization of the pancreas. Nonspecific heterogeneous appearance of the liver without hepatic mass identified. There is suggested marginal nodularity of the liver with ascites. Right pleural effusion. Distended gallbladder measures 12 cm in length. Biliary sludge is noted with the gallbladder wall measuring 4 mm. No shadowing cholelithiasis identified. Negative sonographic Tse's sign. Common bile duct measures 7 mm. IMPRESSION: 1. Distended sludge-filled gallbladder with wall thickening. These findings in conjunction with yesterday's hepatobiliary scan are compatible with acute cholecystitis. 2. Right pleural effusion with ascites. 3. No biliary ductal dilation. ACT 112: Negative or not required by law. The above report was generated using voice recognition software. It may contain grammatical, syntax or spelling errors. Electronically signed by: Kirill Hernandez M.D. 09/08/2021 9:44 AM I & O Totals 24 Hours 09/07/21 09/08/21 09/09/21 06:59 06:59 06:59 Intake Total 476.667 / 476.667 915.5 / 915.5 100 / 100 Output Total 2001 1226 / 1226 Balance -1525.333 / -1525.333 -310.5 / -310.5 100 / 100 Cumulative 09/03/21 09:23 thru 09/08/21 12:35 Intake Total 4332.167 Output Total 6382 Balance -2049.833 RT Ventilator Mngmt (Last Documented) Ventilator Ordered Settings Respiratory Rate 18 09/08/21 10:54 Ventilator - PT Measurements Respiratory Rate 18 PG Care Time/CCT Total # of Minutes Spent Total Time Spent with Patient: Total time spent is greater than 50% in coordination of care (as documented) at patient's floor/unit and/or counseling patient:50 minutes independent of any procedures Coding Level of Care Code 83061 Initial Inpt Care Lvl 3 Diagnoses Acute on chronic diastolic (congestive) heart failure I50.33 Pleural effusion J90 Hypoxia R09.02 Paroxysmal A-fib I48.0 History of tobacco abuse Z87.891 Time Spent (min) 50
--- NOTE | 2021-09-08 15:59 | XRay Report ---
XR chest 1V portable HISTORY: 81 years-old Male S/P Thoracentesis, Right follow-up study in a patient with pleural effusi on and thoracentesis. COMPARISON: 09/07/2021 TECHNIQUE: Portable AP view of the chest FINDINGS: The cardiac silhouette is enlarged. Prior median sternotomy. Atherosclerosis of the aorta. There is d ecreased size of the right pleural effusion status post thoracentesis. There are persistent right bas ilar densities suggestive of probable atelectasis. No postprocedural pneumothorax is identified. Dege nerative changes of the shoulders and spine. Atherosclerosis of the thoracic aorta with diffuse fusif orm dilation measuring up to approximately 4.7 cm. IMPRESSION: 1. Decreased size of the right pleural effusion with improved aeration of the right lung status post thoracentesis. 2. No postprocedural pneumothorax identified. ACT 112: Negative or not required by law. The above report was generated using voice recognition software. It may contain grammatical, syntax o r spelling errors. Electronically signed by: Kirill Hernandez M.D. 09/08/2021 3:58 PM
[2021-09-08 16:39] LABS: Amylase Pleural Fluid 10 U/L; Glucose Pleural Fluid 103 mg/dl; LDH Pleural Fluid 323 U/L; Total Protein Pleural Fluid < 3.0 gm/dl
[2021-09-08] MEDS: cefTRIAXone SODIUM 2,000 MG in DEXTROSE 5% 50 ML IV SCH (17:05)
[2021-09-08 17:27] LABS: Appearance Pleural Fluid Slightly Hazy; Color Pleural Fluid Yellow; RBC Pleural Fluid (A) 2000 /uL; WBC Pleural Fluid (A) 1608 /uL
[2021-09-08 17:29] LABS: Basophils, Fluid 1 %; Eosinophils, Fluid 1 %; Lymphocytes, Fluid 22 %; Mono,Macrophage,Mesothelial 19 %; Neutrophils, Fluid 57 %
[2021-09-08] MEDS: TAMSULOSIN HCL 0.4 MG CAP PO SCH (22:33)
[2021-09-09] MEDS: metroNIDAZOLE 500 MG/100 ML BAG IV SCH ×3 (02:36→17:52)
[2021-09-09 08:36] LABS: Basophils # (auto) 0.05 K/uL (0-0.2); Basophils % (auto) 0.5 %; Eosinophils # (auto) 0.04 K/uL (0-0.50); Eosinophils % (auto) 0.4 %; Hematocrit (blood only) 32.7 % (40.1-51.0); Hemoglobin 10.6 g/dl (14.0-18.0); Immature Granulocytes # (auto) 0.09 K/uL (0.00-0.02); Lymphocytes # (auto) 1.07 K/uL (1.2-3.4); Lymphocytes % (auto) 11.3 %; Mean Corpuscular Hemoglobin 27.2 pg (25.0-34.0); Mean Corpuscular Hgb Conc 32.4 g/dL (32.0-36.0); Mean Corpuscular Volume 83.8 fL (80.0-100.0); Mean Platelet Volume 10.5 fL (9.4-12.4); Monocytes # (auto) 0.79 K/uL (0.24-0.82); Monocytes % (auto) 8.3 %; Neutrophils # (auto) 7.43 K/uL (1.4-6.5); Neutrophils % (auto) 78.5 %; Platelet Count 233 K/uL (130-400); RDW Coefficient of Variation 16.7 % (11.5-14.5); RDW Standard Deviation 49.8 fL (36.4-46.3); White Blood Count 9.47 K/ul (4.8-10.8)
[2021-09-09 08:48] LABS: INR 1.3 (0.9-1.1)
[2021-09-09 08:58] LABS: Albumin Globulin Ratio 0.7 (0.9-2); Albumin Level 2.1 gm/dl (3.4-5.0); Bilirubin,Total 0.8 mg/dl (0.2-1.0); Calcium 7.4 mg/dl (8.5-10.1); Creatinine Clr Calc Pharmacy 40.2 ml/min; Est GFR (African American) 55.2 ml/min; Est GFR (Non-African American) 47.6 ml/min; Globulin 3.1 gm/dl (2.5-4.0); Magnesium 1.7 mg/dl (1.7-2.4); Phosphorus 2.8 mg/dl (2.5-4.9); Total Protein 5.2 gm/dl (6.0-8.3)
[2021-09-09] MEDS: buPROPion XL 150 MG TABCR PO SCH (09:31)
[2021-09-09] MEDS: METOPROLOL SUCC 25MG EXT REL TAB PO SCH (09:31)
[2021-09-09] MEDS: FAMOTIDINE 20 MG TAB PO SCH ×2 (09:31→21:06)
[2021-09-09] MEDS: SPIRONOLACTONE 25 MG TAB PO SCH (09:31)
[2021-09-09] MEDS: BENZONATATE 100 MG CAPSULE PO SCH ×3 (09:31→21:06)
[2021-09-09] MEDS: ASPIRIN 81 MG ECTAB PO SCH (09:31)
[2021-09-09] MEDS: AMIODARONE 200 MG TAB PO SCH (09:31)
[2021-09-09] MEDS: LIDOCAINE 5% 1 PATCH TD SCH (09:33)
[2021-09-09] MEDS: POTASSIUM CHLORIDE 10 MEQ TABCR PO SCH (09:34)
[2021-09-09] MEDS: FUROSEMIDE 40 MG/4 ML VIAL IV SCH (09:34)
--- NOTE | 2021-09-09 11:14 | Pulmonology Progress Note ---
Date of Service September 09, 2021 Assessment & Plan (1) Acute on chronic diastolic (congestive) heart failure: (2) Pleural effusion: (3) Hypoxia: (4) Paroxysmal A-fib: (5) History of tobacco abuse: Plan: Attending: Dr. Murray Impression: 81-year-old male admitted for UTI, cholecystitis, fluid overload, new right-sided pleural effusion. Patient has a [id number] smoking history but states that he quit smoking several years ago. He has no history of pulmonary disease per his description other than may be some mild emphysema. Patient had chest pain on arrival this is resolved. Patient denies any use of inhalers. He has no reports of obstructive sleep apnea or other obstructive disease. Recommendations: 1. Right pleural effusion: * Patient denies history of previous thoracentesis * Most likely etiology is congestive heart failure and CAD. Patient has failed diuresis with regards to clearing of the pleural effusion. Risk versus benefits of bedside thoracentesis was explained to the patient. He elected to proceed with the procedure. * Right-sided thoracentesis was performed by Rusty Steele DO, R2 under the direct supervision of Dr. Murray * There were no complications with the procedure. Approximately 1900 cc of cloudy straw-colored fluid was evacuated. It should be noted that approximately 500 cc patient's fluid became serosanguineous * Pleural fluid was sent to laboratory for evaluation and analysis * Attending hospitalist was notified of the completion of the procedure. * Post procedure chest x-ray shows near resolution of the effusion. No further surveillance is required. Would manage supportively 2. History of tobacco abuse: * Patient reports a past tobacco use history of approximately 50 pack years. He states that he quit smoking several years ago * Continue to encourage complete abstention of tobacco products 3. Paroxysmal atrial fibrillation: * Patient is chronically anticoagulated with warfarin * INR was checked prior to the procedure today and it was 1.5 * No further indication for invasive procedure per pulmonary. Can restart Coumadin tomorrow as coordinated with hospitalist team Thank you for including us in the care of this patient. The pulmonary service will sign off at this time. Please feel free to call with further questions or reconsult. Admission and Anticipated Discharge Date Admission Date: September 03, 2021 Supervising Physician Co-Signing Physician Notes Patient seen and examined. Reviewed EMR and imaging studies as well as pleural fluid studies. Discussed with family practice resident. Agree with assessment plan as noted above. Neutrophilic exudate likely secondary to intra-abdominal process. Await final cytology and will contact patient if abnormal. Otherwise would follow the patient clinically and continue to manage his intra-abdominal issues. Would not recommend additional imaging in the absence of clinical symptoms. Will sign off at this point time. Feel free to contact us with questions or concerns. Subjective Patient seen at bedside this morning. Patient reports improved breathing compared to yesterday prior to thoracentesis. Saturating well with nasal cannula in place albeit only in 1 nostril. Denies shortness of breath, chest pain, or bleeding. He has no other complaints today. Review of Systems Review of Systems: All systems reviewed & are unremarkable except as noted in HPI & below Physical Exam Constitutional: WD/WN, vitals as above Eyes: + anicteric sclerae Neck: normal visual inspection Respiratory: normal respiratory effort Auscultation: + diminished lung sounds (at the R base, but improved from yesterday prior to thoracentesis) Cardiovascular: RRR, no murmur, no edema Results & Data Results & Data ([facility]) Vital Signs (Past 12 Hours) Vital Signs Temp Pulse Pulse Resp BP BP Pulse Ox 09/09/21 08:09 36.8 C 97 H 18 98/60 L 99 09/09/21 07:46 111 H 09/09/21 04:10 36.5 C 89 16 106/59 L 96 09/08/21 23:18 36.6 C 105 H 20 90/41 L 91
[2021-09-09] MEDS: ENOXAPARIN INJ 40 MG/0.4 ML SYR SQ SCH (12:25)
--- NOTE | 2021-09-09 13:03 | Hospitalist Progress Note ---
Date of Service September 09, 2021 Assessment & Plan (1) Acute cholecystitis: Plan: at present conservative managementsee surgery note "09/08/2021 10:58AM cholecystitis with gallbladder sludge, base on pt has no abdominal pain, no vomiting or nausea, no fever, normal WBC, and his high risks for cholecystectomy, D/W benefits, risks and alternatives of the laparoscopic cholecystectomy, pt said he dose not want to take the risks, he wants to do conservative treatment first, antibiotic for 5 days, start diet today, lovenox 30 mg SC once a day, once pt tolerated diet, he can be resumed coumadin, if pt needs cholecystectomy , I recommend to transfer higher level care for surgery, follow up me 2 weeks , " At present hold off resuming Coumadin I do not think at present this issue can be followed properly [facility] for now (2) Hematuria: Plan: Minimal to resolvedfollow clinically (3) Pleural effusion: Plan: Status post thoracocentesis, appears exudative by light's criteria? Parapneumonic but on antibiotics and should cover (4) Paroxysmal A-fib: Plan: Clinically regular, heart rate control, follow; Coumadin on holdsee #1 (5) CAD (coronary artery disease): Plan: S/p CABG x 1 vessel - Nov 2015. 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 daily; watch for overdiuresis Can consider spironolactone as potassium sparing agent Plan: Excoriation perianalwound care consulted Admission and Anticipated Discharge Date Admission Date: September 03, 2021 Subjective Follow-up of original presentation with hematuriarecent course confirmed di agnosis of acute cholecystitis; on direct questioning did mention some abdominal discomfort across upper abdomen Physical Exam Physical Exam: Constitutional and general: No acute distress, looks biologic age; somewhat chronically ill; Head and face: No puffiness, atraumatic Eyes: No scleral icterus, extraocular movements normal Neck: Supple, no JVD Musculoskeletal: No acute joint swelling, no bony abnormalities Skin/dermatologic/integument: No rash, no purpura Hematologic and lymphatic: pallor +, no petechia Gastrointestinal/abdomen: Nondistended, soft, nonacutespecifically, no right upper quadrant tenderness Neurologic: Cranial nerves intact, nonfocal Psychiatry: Awake, alert, pleasant, communicative Cardiovascular: Heart rhythm regular, no rub, no significant murmur, no gallop Respiratory: Chest movements equal, no use of accessory muscles, no adventitious sounds Extremities: edema (+), stasis changes, no cyanosis Results & Data Results & Data ([facility]) Vital Signs (Past 12 Hours) Vital Signs Temp Pulse Pulse Resp BP BP Pulse Ox 09/09/21 12:10 36.7 C 110 H 18 103/69 99 09/09/21 08:09 36.8 C 97 H 18 98/60 L 99 09/09/21 07:46 111 H 09/09/21 04:10 36.5 C 89 16 106/59 L 96 Laboratory Results Laboratory Results - last 24 hr 09/08/21 09/08/21 09/08/21 16:05 Unknown Unknown WBC RBC Hgb Hct MCV MCH MCHC RDW Std Deviation RDW Coeff of Trinh Plt Count MPV Immature Gran % (Auto) Neut % (Auto) Lymph % (Auto) [place] % (Auto) Eos % (Auto) Baso % (Auto) Neut # (Auto) Lymph # (Auto) [place] # (Auto) Eos # (Auto) Baso # (Auto) Immature Gran # (Auto) PT INR Sodium Potassium Chloride Carbon Dioxide Anion Gap BUN Creatinine Est Cr Clr Drug Dosing Est GFR ( Amer) Est GFR (Non-Af Amer) Fasting Glucose Calcium Phosphorus Magnesium Total Bilirubin AST ALT Alkaline Phosphatase Lactate Dehydrogenase 207 Total Protein Albumin Globulin Albumin/Globulin Ratio Fluid Neutrophils % 57 Fluid Lymphocytes % 22 Fluid Eosinophils % 1 Fluid Basophils % 1 Fluid Meso/Macro/[place] % 19 Fluid Comment Pleural Fluid Source R.LUNG Pleural Color Yellow Pleural Appearance Slightly Hazy Pleural pH 7.58 H Pleural WBC 1608 Pleural RBC 2000 Pleural Total Protein Pleural LDH Pleural Glucose Pleural Amylase Pleural Cholesterol 09/08/21 09/08/21 09/09/21 Unknown Unknown 07:49 WBC 9.47 RBC 3.90 L Hgb 10.6 L Hct 32.7 L MCV 83.8 MCH 27.2 MCHC 32.4 RDW Std Deviation 49.8 H RDW Coeff of Trinh 16.7 H Plt Count 233 MPV 10.5 Immature Gran % (Auto) 1.0 Neut % (Auto) 78.5 Lymph % (Auto) 11.3 [place] % (Auto) 8.3 Eos % (Auto) 0.4 Baso % (Auto) 0.5 Neut # (Auto) 7.43 H Lymph # (Auto) 1.07 L [place] # (Auto) 0.79 Eos # (Auto) 0.04 Baso # (Auto) 0.05 Immature Gran # (Auto) 0.09 H PT INR Sodium Potassium Chloride Carbon Dioxide Anion Gap BUN Creatinine Est Cr Clr Drug Dosing Est GFR ( Amer) Est GFR (Non-Af Amer) Fasting Glucose Calcium Phosphorus Magnesium Total Bilirubin AST ALT Alkaline Phosphatase Lactate Dehydrogenase Total Protein Albumin Globulin Albumin/Globulin Ratio Fluid Neutrophils % Fluid Lymphocytes % Fluid Eosinophils % Fluid Basophils % Fluid Meso/Macro/[place] % Fluid Comment Pleural Fluid Source Pleural Color Pleural Appearance Pleural pH Pleural WBC Pleural RBC Pleural Total Protein < 3.0 Pleural LDH 323 Pleural Glucose 103 Pleural Amylase 10 Pleural Cholesterol Pending 09/09/21 09/09/21 07:49 07:49 WBC RBC Hgb Hct MCV MCH MCHC RDW Std Deviation RDW Coeff of Trinh Plt Count MPV Immature Gran % (Auto) Neut % (Auto) Lymph % (Auto) [place] % (Auto) Eos % (Auto) Baso % (Auto) Neut # (Auto) Lymph # (Auto) [place] # (Auto) Eos # (Auto) Baso # (Auto) Immature Gran # (Auto) PT 14.0 H INR 1.3 H Sodium 139 Potassium 4.0 Chloride 106 Carbon Dioxide 28 Anion Gap 5 BUN 18 Creatinine 1.38 Est Cr Clr Drug Dosing 40.2 Est GFR ( Amer) 55.2 Est GFR (Non-Af Amer) 47.6 Fasting Glucose 85 Calcium 7.4 L Phosphorus 2.8 Magnesium 1.7 Total Bilirubin 0.8 AST 41 H ALT 26 Alkaline Phosphatase 126 H Lactate Dehydrogenase Total Protein 5.2 L Albumin 2.1 L Globulin 3.1 Albumin/Globulin Ratio 0.7 L Fluid Neutrophils % Fluid Lymphocytes % Fluid Eosinophils % Fluid Basophils % Fluid Meso/Macro/[place] % Fluid Comment Pleural Fluid Source Pleural Color Pleural Appearance Pleural pH Pleural WBC Pleural RBC Pleural Total Protein Pleural LDH Pleural Glucose Pleural Amylase Pleural Cholesterol PG Care Time/CCT Total # of Minutes Spent Total Time Spent with Patient: Total time spent is greater than 50% in coordination of care (as documented) at patient's floor/unit and/or counseling patient: Coding Level of Care Code 98832 Subseq Hosp Care Lvl 2 Diagnoses Acute cholecystitis K81.0 Hematuria R31.9 Pleural effusion J90 Paroxysmal A-fib I48.0 CAD (coronary artery disease) I25.10 Hypertension I10 Hypertension type: essential hypertension BPH (benign prostatic hypertrophy) N40.0 Anxiety F41.9 Cerebrovascular disease I67.9 Anemia D64.9 Hypokalemia E87.6 Hypoxia R09.02 Acute on chronic diastolic (congestive) heart failure I50.33 (1) Hypertension Hypertension type: essential hypertension Qualified Code(s): I10 - Essential (primary) hypertension
--- NOTE | 2021-09-09 14:12 | Surgery Progress Note ---
Date of Service September 09, 2021 Assessment & Plan (1) Acute cholecystitis: Plan: pt is a 81 year-old male who was admitted to hospital for right chest wall pain 6 days ago, HIDA scan and Ultrasound- acute cholecystitis, As per Dr. Boyd since pt has no abdominal pain, no vomiting or nausea, no fever, normal WBC, and is high risk for cholecystectomy, based on age, functional status, and comorbidities would recommend continuation of conservative treatment. Would continue antibiotic therapy and low fat diet. If pt needs cholecystectomy , I recommend to transfer higher level care for surgery. Surgery will follow peripherally over weekend. Dr. Mayer is covering the weekend. Dr. Boyd was present during my examination and agrees with above. Admission and Anticipated Discharge Date Admission Date: September 03, 2021 Subjective eating upon entering room sister is at bedside states that he is having some abdominal discomfort but cannot state where. Eating fine but doesn't like the food. No nausea or vomiting complaining more of back pain and buttock pain when asked if he is having any pain Physical Exam Constitutional: + frail appearing; no acute distress Neck: normal visual inspection and trachea midline Respiratory: normal respiratory effort; no respiratory distress Chest (Breasts): Additional Comments: There is a dressing of the right chest at site of thoracentesis, clean and dry Gastrointestinal (Abdomen): Inspection/Auscultation: abdomen normal to ins pection; abdomen not distended Percussion/Palpation: abdomen soft; abdomen nontender, no guarding and abdomen not rigid Skin: no rashes, warm and dry no jaundice Results & Data ([facility]) Vital Signs (Past 12 Hours) Vital Signs Temp Pulse Pulse Resp BP BP Pulse Ox 09/09/21 12:10 36.7 C 110 H 18 103/69 99 09/09/21 08:09 36.8 C 97 H 18 98/60 L 99 09/09/21 07:46 111 H 09/09/21 04:10 36.5 C 89 16 106/59 L 96 Laboratory Results 09/09/21 09/09/21 09/09/21 Range/Units 07:49 07:49 07:49 WBC 9.47 (4.8-10.8) K/ul RBC 3.90 L (4.63-6.08) M/uL Hgb 10.6 L (14.0-18.0) g/dl Hct 32.7 L (40.1-51.0) % MCV 83.8 (80.0-100.0) fL MCH 27.2 (25.0-34.0) pg MCHC 32.4 (32.0-36.0) g/dL RDW Std Deviation 49.8 H (36.4-46.3) fL RDW Coeff of Trinh 16.7 H (11.5-14.5) % Plt Count 233 (130-400) K/uL MPV 10.5 (9.4-12.4) fL Immature Gran % (Auto) 1.0 % Neut % (Auto) 78.5 % Lymph % (Auto) 11.3 % [place] % (Auto) 8.3 % Eos % (Auto) 0.4 % Baso % (Auto) 0.5 % Neut # (Auto) 7.43 H (1.4-6.5) K/uL Lymph # (Auto) 1.07 L (1.2-3.4) K/uL [place] # (Auto) 0.79 (0.24-0.82) K/uL Eos # (Auto) 0.04 (0-0.50) K/uL Baso # (Auto) 0.05 (0-0.2) K/uL Immature Gran # (Auto) 0.09 H (0.00-0.02) K/uL PT 14.0 H (9.0-12.0) Seconds INR 1.3 H (0.9-1.1) Sodium 139 (136-145) mmol/L Potassium 4.0 (3.5-5.1) mmol/L Chloride 106 (98-107) mmol/L Carbon Dioxide 28 (21-32) mmol/L Anion Gap 5 (3-11) BUN 18 (6-23) mg/dl Creatinine 1.38 (0.6-1.4) mg/dl Est Cr Clr Drug Dosing 40.2 ml/min Est GFR ( Amer) 55.2 ml/min Est GFR (Non-Af Amer) 47.6 ml/min Fasting Glucose 85 (70-99) mg/dl Calcium 7.4 L (8.5-10.1) mg/dl Phosphorus 2.8 (2.5-4.9) mg/dl Magnesium 1.7 (1.7-2.4) mg/dl Total Bilirubin 0.8 (0.2-1.0) mg/dl AST 41 H (13-39) U/L ALT 26 (7-52) U/L Alkaline Phosphatase 126 H (34-104) U/L Lactate Dehydrogenase (86-244) U/L Total Protein 5.2 L (6.0-8.3) gm/dl Albumin 2.1 L (3.4-5.0) gm/dl Globulin 3.1 (2.5-4.0) gm/dl Albumin/Globulin Ratio 0.7 L (0.9-2) Fluid Neutrophils % % Fluid Lymphocytes % % Fluid Eosinophils % % Fluid Basophils % % Fluid Meso/Macro/[place] % % Fluid Comment Pleural Fluid Source Pleural Color Pleural Appearance Pleural pH (7.3-7.4) Pleural WBC /uL Pleural RBC /uL Pleural Total Protein gm/dl Pleural LDH U/L Pleural Glucose mg/dl Pleural Amylase U/L Pleural Cholesterol 09/08/21 09/08/21 09/08/21 Range/Units Unknown Unknown Unknown WBC (4.8-10.8) K/ul RBC (4.63-6.08) M/uL Hgb (14.0-18.0) g/dl Hct (40.1-51.0) % MCV (80.0-100.0) fL MCH (25.0-34.0) pg MCHC (32.0-36.0) g/dL RDW Std Deviation (36.4-46.3) fL RDW Coeff of Trinh (11.5-14.5) % Plt Count (130-400) K/uL MPV (9.4-12.4) fL Immature Gran % (Auto) % Neut % (Auto) % Lymph % (Auto) % [place] % (Auto) % Eos % (Auto) % Baso % (Auto) % Neut # (Auto) (1.4-6.5) K/uL Lymph # (Auto) (1.2-3.4) K/uL [place] # (Auto) (0.24-0.82) K/uL Eos # (Auto) (0-0.50) K/uL Baso # (Auto) (0-0.2) K/uL Immature Gran # (Auto) (0.00-0.02) K/uL PT (9.0-12.0) Seconds INR (0.9-1.1) Sodium (136-145) mmol/L Potassium (3.5-5.1) mmol/L Chloride (98-107) mmol/L Carbon Dioxide (21-32) mmol/L Anion Gap (3-11) BUN (6-23) mg/dl Creatinine (0.6-1.4) mg/dl Est Cr Clr Drug Dosing ml/min Est GFR ( Amer) ml/min Est GFR (Non-Af Amer) ml/min Fasting Glucose (70-99) mg/dl Calcium (8.5-10.1) mg/dl Phosphorus (2.5-4.9) mg/dl Magnesium (1.7-2.4) mg/dl Total Bilirubin (0.2-1.0) mg/dl AST (13-39) U/L ALT (7-52) U/L Alkaline Phosphatase (34-104) U/L Lactate Dehydrogenase (86-244) U/L Total Protein (6.0-8.3) gm/dl Albumin (3.4-5.0) gm/dl Globulin (2.5-4.0) gm/dl Albumin/Globulin Ratio (0.9-2) Fluid Neutrophils % % Fluid Lymphocytes % % Fluid Eosinophils % % Fluid Basophils % % Fluid Meso/Macro/[place] % % Fluid Comment Pleural Fluid Source Pleural Color Pleural Appearance Pleural pH 7.58 H (7.3-7.4) Pleural WBC /uL Pleural RBC /uL Pleural Total Protein < 3.0 gm/dl Pleural LDH 323 U/L Pleural Glucose 103 mg/dl Pleural Amylase 10 U/L Pleural Cholesterol Pending 09/08/21 09/08/21 Range/Units Unknown 16:05 WBC (4.8-10.8) K/ul RBC (4.63-6.08) M/uL Hgb (14.0-18.0) g/dl Hct (40.1-51.0) % MCV (80.0-100.0) fL MCH (25.0-34.0) pg MCHC (32.0-36.0) g/dL RDW Std Deviation (36.4-46.3) fL RDW Coeff of Trinh (11.5-14.5) % Plt Count (130-400) K/uL MPV (9.4-12.4) fL Immature Gran % (Auto) % Neut % (Auto) % Lymph % (Auto) % [place] % (Auto) % Eos % (Auto) % Baso % (Auto) % Neut # (Auto) (1.4-6.5) K/uL Lymph # (Auto) (1.2-3.4) K/uL [place] # (Auto) (0.24-0.82) K/uL Eos # (Auto) (0-0.50) K/uL Baso # (Auto) (0-0.2) K/uL Immature Gran # (Auto) (0.00-0.02) K/uL PT (9.0-12.0) Seconds INR (0.9-1.1) Sodium (136-145) mmol/L Potassium (3.5-5.1) mmol/L Chloride (98-107) mmol/L Carbon Dioxide (21-32) mmol/L Anion Gap (3-11) BUN (6-23) mg/dl Creatinine (0.6-1.4) mg/dl Est Cr Clr Drug Dosing ml/min Est GFR ( Amer) ml/min Est GFR (Non-Af Amer) ml/min Fasting Glucose (70-99) mg/dl Calcium (8.5-10.1) mg/dl Phosphorus (2.5-4.9) mg/dl Magnesium (1.7-2.4) mg/dl Total Bilirubin (0.2-1.0) mg/dl AST (13-39) U/L ALT (7-52) U/L Alkaline Phosphatase (34-104) U/L Lactate Dehydrogenase 207 (86-244) U/L Total Protein (6.0-8.3) gm/dl Albumin (3.4-5.0) gm/dl Globulin (2.5-4.0) gm/dl Albumin/Globulin Ratio (0.9-2) Fluid Neutrophils % 57 % Fluid Lymphocytes % 22 % Fluid Eosinophils % 1 % Fluid Basophils % 1 % Fluid Meso/Macro/[place] % 19 % Fluid Comment Pleural Fluid Source R.LUNG Pleural Color Yellow Pleural Appearance Slightly Hazy Pleural pH (7.3-7.4) Pleural WBC 1608 /uL Pleural RBC 2000 /uL Pleural Total Protein gm/dl Pleural LDH U/L Pleural Glucose mg/dl Pleural Amylase U/L Pleural Cholesterol
[2021-09-09] MEDS: cefTRIAXone SODIUM 2,000 MG in DEXTROSE 5% 50 ML IV SCH (17:24)
[2021-09-09] MEDS: TAMSULOSIN HCL 0.4 MG CAP PO SCH (21:07)
[2021-09-10] MEDS: metroNIDAZOLE 500 MG/100 ML BAG IV SCH ×3 (02:36→18:17)
[2021-09-10 06:28] LABS: Basophils # (auto) 0.03 K/uL (0-0.2); Basophils % (auto) 0.4 %; Eosinophils # (auto) 0.12 K/uL (0-0.50); Eosinophils % (auto) 1.6 %; Hematocrit (blood only) 32.1 % (40.1-51.0); Hemoglobin 10.4 g/dl (14.0-18.0); Immature Granulocytes # (auto) 0.12 K/uL (0.00-0.02); Immature Granulocytes % (auto) 1.6 %; Lymphocytes % (auto) 12.2 %; Mean Corpuscular Hemoglobin 27.6 pg (25.0-34.0); Mean Corpuscular Hgb Conc 32.4 g/dL (32.0-36.0); Mean Corpuscular Volume 85.1 fL (80.0-100.0); Monocytes # (auto) 0.72 K/uL (0.24-0.82); Monocytes % (auto) 9.8 %; Neutrophils # (auto) 5.49 K/uL (1.4-6.5); Neutrophils % (auto) 74.4 %; Platelet Count 218 K/uL (130-400); RDW Coefficient of Variation 17.2 % (11.5-14.5); RDW Standard Deviation 52.5 fL (36.4-46.3); Red Blood Count 3.77 M/uL (4.63-6.08); White Blood Count 7.38 K/ul (4.8-10.8)
--- NOTE | 2021-09-10 06:46 | Surgery Progress Note ---
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 He obviously has significant comorbidity and requires significant assistance. IV antibiotics until Sunday morning, continue to assess p.o. intake, plan as outlined by Dr. Boyd-he has Suggested tertiary care center if cholecystectomy required Admission and Anticipated Discharge Date Admission Date: September 03, 2021 Results & Data ([facility]) Vital Signs (Past 12 Hours) Vital Signs Temp Pulse Pulse Resp BP Pulse Ox 09/10/21 03:14 98 H 18 110/65 98 09/10/21 00:07 97 H 09/09/21 23:10 36.5 C 96 H 18 124/67 99 PG Care Time/CCT Total # of Minutes Spent Total Time Spent with Patient: Total time spent is greater than 50% in coordination of care (as documented) at patient's floor/unit and/or counseling patient: Coding Level of Care Code None Diagnoses Cholecystitis K81.9
[2021-09-10 07:01] LABS: INR 1.4 (0.9-1.1); Prothrombin Time 14.2 Seconds (9.0-12.0)
[2021-09-10 07:05] LABS: Albumin Globulin Ratio 0.7 (0.9-2); Bilirubin,Total 0.7 mg/dl (0.2-1.0); Calcium 7.2 mg/dl (8.5-10.1); Creatinine Clr Calc Pharmacy 41.8 ml/min; Est GFR (African American) 61.6 ml/min; Est GFR (Non-African American) 53.1 ml/min; Globulin 2.9 gm/dl (2.5-4.0); Magnesium 1.7 mg/dl (1.7-2.4); Potassium 3.6 mmol/L (3.5-5.1); Total Protein 4.9 gm/dl (6.0-8.3)
[2021-09-10] MEDS: FUROSEMIDE 40 MG/4 ML VIAL IV SCH (11:19)
--- NOTE | 2021-09-10 11:37 | Hospitalist Progress Note ---
Date of Service September 10, 2021 Assessment & Plan (1) Acute cholecystitis: Plan: at present conservative managementsee surgery note "09/08/2021 10:58AM Per Dr. Boyd's note: cholecystitis with gallbladder sludge, base on pt has no abdominal pain, no vomiting or nausea, no fever, normal WBC, and his high risks for cholecystectomy, D/W benefits, risks and alternatives of the laparoscopic cholecystectomy, Pt said he does not want to take the risks of surgery and chooses conservative treatment. Antibiotic for 5 days, start diet today, lovenox 30 mg SC once a day, once pt tolerated diet, he can be resumed coumadin, Follow up with Dr. Boyd in 2 weeks At present hold off resuming Coumadin Anticipate return to [facility] Patient requiring IV antibiotics until Sunday per surgery note (2) Hematuria: Plan: Resolved (3) Pleural effusion: Plan: Status post thoracocentesis, appears exudative by light's criteria Antibiotics for abdominal process adequate for pulmonary coverage Awaiting cytology results Check repeat chest x-ray tomorrow for surveillance (4) Paroxysmal A-fib: Plan: Rate and rhythm currently controlled Continue to hold anticoagulant for now and monitor on telemetry Continue amiodarone and metoprolol succinate (5) CAD (coronary artery disease): Plan: S/p CABG x 1 vessel - Nov 2015. 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 daily; watch for overdiuresis Can consider spironolactone as potassium sparing agent Plan: Excoriation perianal region -wound care consulted Admission and Anticipated Discharge Date Admission Date: September 03, 2021 Subjective Attending: Dr. Kota Hale This is an 81-year-old male that resides at [facility]. He has history of left-sided kidney stones and was admitted on 09/03/2021 for hematuria with concern for UTI with resistant E. faecium. Patient was started on daptomycin. Urine culture grew out Rachel albicans/tubular dubliniensis. Patient has remained afebrile. Surgery was consulted for concern with cholecystitis. Was seen by surgery who recommended conservative treatment. During the process of work-up patient was also found to have a moderate to large pleural effusion. Patient underwent thoracentesis on 09/08/2021 with 1900 mL of cloudy fluid removed. It was noted that the fluid became more serosanguineous after approximately 500 mL of evacuation of fluid. Pathology is currently pending. Pleural pH was 7.58. Patient is currently on isolation for MRSA secondary to positive nasal swab on 09/03/2021, 08/26/2021, and 04/04/2021. Patient continues to be hospitalized as he continues to require IV antibiotics as recommended by surgery until Sunday morning. At that time is planned that he will be transition to oral intake. Review of Systems Review of Systems: A total of 10 systems was reviewed and is negative other than as listed in the HPI Physical Exam Physical Exam: GENERAL : No acute distress but patient continues to appear weak and has difficulty moving about in the bed EYES: No icterus, gaze conjugate NOSE: No evidence of epistaxis MOUTH: No lesions or candidiasis NECK: Supple LUNGS: CTA B/L, no wheezes, rales or rhonchi HEART: Regular, rate controlled ABDOMEN: Soft, NT, ND, BS Present EXTREMITIES: No LE edema, pedal pulses intact NEURO: A&OX3 Results & Data Results & Data ([facility]) Vital Signs (Past 12 Hours) Vital Signs Pulse Pulse Resp BP Pulse Ox 09/10/21 08:00 104 H 09/10/21 03:14 98 H 18 110/65 98 09/10/21 00:07 97 H Critical Care Results & Data Vital Signs (Past 12 Hours) Vital Signs Temp Pulse Pulse Resp BP Pulse Ox 09/10/21 22:51 36.7 C 106 H 18 121/77 96 09/10/21 18:45 36.6 C 115 H 16 110/67 96 09/10/21 15:53 108 H 09/10/21 15:40 36.7 C 120 H 16 105/56 L 100 09/10/21 11:32 36.0 C L 111 H 18 108/61 100 Lab & Micro Results (Past 24 Hours) RBC 3.77 M/uL (4.63-6.08) L 09/10/21 WBC 7.38 K/ul (4.8-10.8) 09/10/21 Hgb 10.4 g/dl (14.0-18.0) L 09/10/21 Hct 32.1 % (40.1-51.0) L 09/10/21 MCV 85.1 fL (80.0-100.0) 09/10/21 MCH 27.6 pg (25.0-34.0) 09/10/21 MCHC 32.4 g/dL (32.0-36.0) 09/10/21 RDW Standard Deviation 52.5 fL (36.4-46.3) H 09/10/21 RDW Coefficient of Variation 17.2 % (11.5-14.5) H 09/10/21 Plt Count 218 K/uL (130-400) 09/10/21 MPV 10.0 fL (9.4-12.4) 09/10/21 Neutrophils (%) (Auto) 74.4 % 09/10/21 Lymphocytes (%) (Auto) 12.2 % 09/10/21 Monocytes # (Auto) 0.72 K/uL (0.24-0.82) 09/10/21 Eosinophils # (Auto) 0.12 K/uL (0-0.50) 09/10/21 Immature Granulocyte % (Auto) 1.6 % 09/10/21 Neutrophils # (Auto) 5.49 K/uL (1.4-6.5) 09/10/21 Lymphocytes # (Auto) 0.90 K/uL (1.2-3.4) L 09/10/21 Monocytes # (Auto) 0.72 K/uL (0.24-0.82) 09/10/21 Eosinophils # (Auto) 0.12 K/uL (0-0.50) 09/10/21 Basophils # (Auto) 0.03 K/uL (0-0.2) 09/10/21 Immature Granulocyte # (Auto) 0.12 K/uL (0.00-0.02) H 09/10/21 Na 139 mmol/L (136-145) 09/10/21 K 3.6 mmol/L (3.5-5.1) 09/10/21 Cl 105 mmol/L (98-107) 09/10/21 CO2 29 mmol/L (21-32) 09/10/21 Anion Gap 5 (3-11) 09/10/21 BUN 18 mg/dl (6-23) 09/10/21 Creatinine 1.26 mg/dl (0.6-1.4) 09/10/21 Estimated GFR ( Amer) 61.6 ml/min 09/10/21 Estimated GFR (Non-Af Amer) 53.1 ml/min 09/10/21 Ca 7.2 mg/dl (8.5-10.1) L 09/10/21 Total Bilirubin 0.7 mg/dl (0.2-1.0) 09/10/21 AST 32 U/L (13-39) 09/10/21 ALT 22 U/L (7-52) 09/10/21 Alkaline Phosphatase 117 U/L (34-104) H 09/10/21 TP 4.9 gm/dl (6.0-8.3) L 09/10/21 Albumin 2.0 gm/dl (3.4-5.0) L 09/10/21 Globulin 2.9 gm/dl (2.5-4.0) 09/10/21 Albumin/Globulin Ratio 0.7 (0.9-2) L 09/10/21 Mg 1.7 mg/dl (1.7-2.4) 09/10/21 06:10 09/10/21 Calcium Level 7.2 mg/dl (8.5-10.1) L 09/10/21 06:10 09/10/21 Prothromb Time International Ratio 1.4 (0.9-1.1) H 09/10/21 06:06 09/10/21 Microbiology 09/08/21 Unknown Acid Fast Bacilli Smear - Final Pleural Fluid I & O Totals 24 Hours 09/09/21 09/10/21 09/11/21 06:59 06:59 06:59 Intake Total 1030 / 1030 1010 / 1010 1310 / 1310 Output Total 525 / 525 1050 / 1050 1050 / 1050 Balance 505 / 505 -40 / -40 260 / 260 Cumulative 09/03/21 09:23 thru 09/10/21 22:50 Intake Total 7582.167 Output Total 9007 Balance -1424.833 RT Ventilator Mngmt (Last Documented) Ventilator Ordered Settings Respiratory Rate 18 09/10/21 22:51 Ventilator - PT Measurements Respiratory Rate 18 PG Care Time/CCT Total # of Minutes Spent Total Time Spent with Patient: Total time spent is greater than 50% in coordination of care (as documented) at patient's floor/unit and/or counseling patient: Coding Level of Care Code 96397 Subseq Hosp Care Lvl 2 Diagnoses Acute cholecystitis K81.0 Hematuria R31.9 Pleural effusion J90 Paroxysmal A-fib I48.0 CAD (coronary artery disease) I25.10 Hypertension I10 Hypertension type: essential hypertension BPH (benign prostatic hypertrophy) N40.0 Anxiety F41.9 Cerebrovascular disease I67.9 Anemia D64.9 Hypokalemia E87.6 Hypoxia R09.02 Acute on chronic diastolic (congestive) heart failure I50.33 (1) Hypertension Hypertension type: essential hypertension Qualified Code(s): I10 - Essential (primary) hypertension
[2021-09-10] MEDS: BENZONATATE 100 MG CAPSULE PO SCH ×3 (11:42→21:41)
[2021-09-10] MEDS: ENOXAPARIN INJ 40 MG/0.4 ML SYR SQ SCH (11:42)
[2021-09-10] MEDS: POTASSIUM CHLORIDE 10 MEQ TABCR PO SCH (11:43)
[2021-09-10] MEDS: FAMOTIDINE 20 MG TAB PO SCH ×2 (11:43→21:41)
[2021-09-10] MEDS: buPROPion XL 150 MG TABCR PO SCH (11:43)
[2021-09-10] MEDS: AMIODARONE 200 MG TAB PO SCH (11:43)
[2021-09-10] MEDS: SPIRONOLACTONE 25 MG TAB PO SCH (11:43)
[2021-09-10] MEDS: METOPROLOL SUCC 25MG EXT REL TAB PO SCH (11:43)
[2021-09-10] MEDS: ASPIRIN 81 MG ECTAB PO SCH (11:44)
[2021-09-10] MEDS: LIDOCAINE 5% 1 PATCH TD SCH (11:44)
[2021-09-10] MEDS: POLYETHYLENE (MIRALAX) 17 GM PACK PO SCH (11:45)
[2021-09-10] MEDS: cefTRIAXone SODIUM 2,000 MG in DEXTROSE 5% 50 ML IV SCH (16:36)
[2021-09-10] MEDS: TAMSULOSIN HCL 0.4 MG CAP PO SCH (21:42)
[2021-09-11] MEDS: metroNIDAZOLE 500 MG/100 ML BAG IV SCH ×3 (02:57→18:11)
--- NOTE | 2021-09-11 07:22 | Surgery Progress Note ---
Date of Service September 11, 2021 Assessment & Plan (1) Cholecystitis: Plan: Does not appear to have severe cholecystitis Continue with plan of IV antibiotics and nonoperative management for now Per Dr. Boyd's [id number] in office with possible tertiary evaluation Admission and Anticipated Discharge Date Admission Date: September 03, 2021 Subjective Patient resting comfortably with no acute changes overnight Vital signs are stable He does not appear to complain of much abdominal pain Review of Systems Review of Systems: All systems reviewed & are unremarkable except as noted in HPI & below Physical Exam Constitutional: + frail appearing; no acute distress Neck: normal visual inspection and trachea midline Respiratory: normal respiratory effort; no respiratory distress Chest (Breasts): Additional Comments: There is a dressing of the right chest at site of thoracentesis, clean and dry Gastrointestinal (Abdomen): Inspection/Auscultation: abdomen normal to inspection; abdomen not distended Nondistended Skin: no rashes, warm and dry Results & Data ([facility]) Vital Signs (Past 12 Hours) Vital Signs Temp Pulse Pulse Resp BP Pulse Ox 09/11/21 02:34 36.6 C 107 H 18 118/67 97 09/11/21 02:23 100 H 09/10/21 22:51 36.7 C 106 H 18 121/77 96 PG Care Time/CCT Total # of Minutes Spent Total Time Spent with Patient: Total time spent is greater than 50% in coordination of care (as documented) at patient's floor/unit and/or counseling patient: Coding Level of Care Code 57724 Inpt Consult Level 3 Diagnoses Cholecystitis K81.9
[2021-09-11] MEDS: LIDOCAINE 5% 1 PATCH TD SCH (08:59)
[2021-09-11] MEDS: POTASSIUM CHLORIDE 10 MEQ TABCR PO SCH (08:59)
[2021-09-11] MEDS: FAMOTIDINE 20 MG TAB PO SCH ×2 (08:59→20:04)
[2021-09-11] MEDS: buPROPion XL 150 MG TABCR PO SCH (08:59)
[2021-09-11] MEDS: SPIRONOLACTONE 25 MG TAB PO SCH (09:00)
[2021-09-11] MEDS: AMIODARONE 200 MG TAB PO SCH (09:00)
[2021-09-11] MEDS: BENZONATATE 100 MG CAPSULE PO SCH ×3 (09:00→20:00)
[2021-09-11] MEDS: ASPIRIN 81 MG ECTAB PO SCH (09:00)
[2021-09-11] MEDS: FUROSEMIDE 40 MG/4 ML VIAL IV SCH (09:00)
[2021-09-11] MEDS: METOPROLOL SUCC 25MG EXT REL TAB PO SCH (09:00)
[2021-09-11] MEDS: POLYETHYLENE (MIRALAX) 17 GM PACK PO SCH (09:01)
--- NOTE | 2021-09-11 10:32 | XRay Report ---
XR chest 1V portable CLINICAL HISTORY: Follow-up right pleural effusion status post previous thoracentesis. COMPARISON STUDY: 09/08/2021 TECHNIQUE: 1 view of the chest FINDINGS: Single frontal view of the chest demonstrates the heart to again be enlarged status post previous car diothoracic surgery. Compared to previous examination, there has been recurrence of right pleural eff usion with right basilar atelectasis. There is no evidence for left pleural effusion . The remainder the lungs are clear. There is no evidence for vascular congestion. IMPRESSION: 1. Interval recurrence of right pleural effusion and right basilar atelectasis. ACT 112: Negative or not required by law. Electronically signed by: Tripp Tse M.D. 09/11/2021 10:31 AM
[2021-09-11] MEDS: ENOXAPARIN INJ 40 MG/0.4 ML SYR SQ SCH (12:55)
[2021-09-11] MEDS: MAGNESIUM SULFATE / D5W 1 GM/100 ML BAG IV SCH ×2 (13:34→15:25)
[2021-09-11] MEDS: MAGNESIUM OXIDE 400 MG TAB PO SCH (14:53)
[2021-09-11] MEDS: cefTRIAXone SODIUM 2,000 MG in DEXTROSE 5% 50 ML IV SCH (17:17)
--- NOTE | 2021-09-11 17:39 | Hospitalist Progress Note ---
Date of Service September 11, 2021 Assessment & Plan (1) Acute cholecystitis: Plan: Continue with conservative managementsee surgery note "09/08/2021 10:58AM Per Dr. Boyd's note: cholecystitis with gallbladder sludge, base on pt has no abdominal pain, no vomiting or nausea, no fever, normal WBC, and his high risks for cholecystectomy, D/W benefits, risks and alternatives of the laparoscopic cholecystectomy, Pt said he does not want to take the risks of surgery and chooses conservative treatment. Antibiotic for 5 days, start diet today, lovenox 30 mg SC once a day, once pt tolerated diet, he can be resumed coumadin, Follow up with Dr. Boyd in 2 weeks At present hold off resuming Coumadin Anticipate return to [facility] Patient requiring IV antibiotics until Sunday per surgery note (2) Hematuria: Plan: Resolved (3) Pleural effusion: Plan: Status post thoracocentesis, appears exudative by light's criteria Antibiotics for abdominal process adequate for pulmonary coverage Awaiting cytology results Repeat chest x-ray today with recurrence of right pleural effusion. Currently saturating above 90% on room air We will consider bedside ultrasound tomorrow prior to resuming anticoagulation (4) Paroxysmal A-fib: Plan: Rate and rhythm currently controlled Continue to hold anticoagulant for now and monitor on telemetry Continue amiodarone and metoprolol succinate (5) CAD (coronary artery disease): Plan: S/p CABG x 1 vessel - Nov 2015. - Continue home ASA, beta-carrington, furosemide (6) Hypertension: Plan: Continue usual home medications as tolerated Monitor vital signs per protocol (7) BPH (benign prostatic hypertrophy): Plan: Urology consult placed. 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 Continue aspirin, not seeing that he is on statin but can be addressed by PCP (10) Anemia: Plan: Hemoglobin stable (11) Hypokalemia: Plan: Potassium 3.6 Magnesium 1.7 -started magnesium oxide 400 mg p.o. every morning on 09/11/2021 Follow serial labs Replace as necessary (12) Hypoxia: Plan: Likely due to fluid overload, pleural effusiondiuresis Status post thoracentesis with 1900 cc evacuated Patient is currently doing well on room air. However chest x-ray shows reaccumulating right pleural effusion (13) Acute on chronic diastolic (congestive) heart failure: Plan: Status post thoracentesis; Continue current diuresishome dose appears to be 20 mg Lasix p.o. daily; watch for overdiuresis Can consider spironolactone as potassium sparing agent Plan: Excoriation perianal region -wound care consulted Admission and Anticipated Discharge Date Admission Date: September 03, 2021 Subjective Attending: Dr. Hale Patient seen and examined in room 258. He is resting comfortably in bed watching the [employer]. He is alert and oriented x3. He denies any shortness of breath. He has no chest pain or tightness. Some mild abdominal tenderness. No nausea or vomiting. No diarrhea. Review of Systems Review of Systems: A total of 10 systems was reviewed and is negative other than as listed in the HPI Physical Exam Physical Exam: GENERAL : No acute distress EYES: No icterus, gaze conjugate NOSE: No evidence of epistaxis MOUTH: No lesions or candidiasis NECK: Supple LUNGS: Decreased breath sounds at the right base. Otherwise, CTA B/L, no wheezes, rales or rhonchi. No difficulty with deep inspiration. No cough with deep inspiration. HEART: Regular, rate controlled ABDOMEN: Soft, NT, ND, BS Present. Some tenderness with palpation of the belly. No guarding. EXTREMITIES: No LE edema, pedal pulses intact NEURO: A&OX3 Results & Data Results & Data ([facility]) Vital Signs (Past 12 Hours) Vital Signs Temp Pulse Pulse Resp BP BP Pulse Ox 09/11/21 15:50 36.5 C 107 H 18 102/61 94 09/11/21 15:18 102 H 09/11/21 11:35 37.0 C 121 H 18 132/77 99 09/11/21 08:58 36.8 C 105 H 16 107/65 98 09/11/21 08:00 97 H Critical Care Results & Data Vital Signs (Past 12 Hours) Vital Signs Temp Pulse Pulse Resp BP BP Pulse Ox 09/11/21 15:50 36.5 C 107 H 18 102/61 94 09/11/21 15:18 102 H 09/11/21 11:35 37.0 C 121 H 18 132/77 99 09/11/21 08:58 36.8 C 105 H 16 107/65 98 09/11/21 08:00 97 H Lab & Micro Results (Past 24 Hours) No Data to Display No Data to Display Mg 1.6 mg/dl (1.7-2.4) L 09/11/21 06:33 09/11/21 Diagnostic Findings (Past 24 Hours) Chest X-Ray 09/11/21 07:00 XR chest 1V portable CLINICAL HISTORY: Follow-up right pleural effusion status post previous thoracentesis. COMPARISON STUDY: 09/08/2021 TECHNIQUE: 1 view of the chest FINDINGS: Single frontal view of the chest demonstrates the heart to again be enlarged status post previous cardiothoracic surgery. Compared to previous examination, there has been recurrence of right pleural effusion with right basilar atelectasis. There is no evidence for left pleural effusion . The remainder the lungs are clear. There is no evidence for vascular congestion. IMPRESSION: 1. Interval recurrence of right pleural effusion and right basilar atelectasis. ACT 112: Negative or not required by law. Electronically signed by: Tripp Tse M.D. 09/11/2021 10:31 AM I & O Totals 24 Hours 09/10/21 09/11/21 09/12/21 06:59 06:59 06:59 Intake Total 1010 / 1010 1410 / 1410 192.5 / 192.5 Output Total 1050 / 1050 1150 / 1150 1000 / 1000 Balance -40 / -40 260 / 260 -807.5 / -807.5 Cumulative 09/03/21 09:23 thru 09/11/21 15:25 Intake Total 7874.667 Output Total 34177 Balance -2232.333 RT Ventilator Mngmt (Last Documented) Ventilator Ordered Settings Respiratory Rate 18 09/11/21 15:50 Ventilator - PT Measurements Respiratory Rate 18 PG Care Time/CCT Total # of Minutes Spent Total Time Spent with Patient: Total time spent is greater than 50% in coordination of care (as documented) at patient's floor/unit and/or counseling patient: Coding Level of Care Code 04023 Subseq Hosp Care Lvl 2 Diagnoses Acute cholecystitis K81.0 Hematuria R31.9 Pleural effusion J90 Paroxysmal A-fib I48.0 CAD (coronary artery disease) I25.10 Hypertension I10 Hypertension type: essential hypertension BPH (benign prostatic hypertrophy) N40.0 Anxiety F41.9 Cerebrovascular disease I67.9 Anemia D64.9 Hypokalemia E87.6 Hypoxia R09.02 Acute on chronic diastolic (congestive) heart failure I50.33 (1) Hypertension Hypertension type: essential hypertension Qualified Code(s): I10 - Essential (primary) hypertension
[2021-09-11] MEDS: TAMSULOSIN HCL 0.4 MG CAP PO SCH (20:04)
[2021-09-12] MEDS: metroNIDAZOLE 500 MG/100 ML BAG IV SCH ×3 (02:55→17:05)
[2021-09-12] MEDS: AMIODARONE 200 MG TAB PO SCH (09:26)
[2021-09-12] MEDS: BENZONATATE 100 MG CAPSULE PO SCH ×3 (09:26→22:17)
[2021-09-12] MEDS: POTASSIUM CHLORIDE 10 MEQ TABCR PO SCH (09:26)
[2021-09-12] MEDS: SPIRONOLACTONE 25 MG TAB PO SCH (09:28)
[2021-09-12] MEDS: ASPIRIN 81 MG ECTAB PO SCH (09:28)
[2021-09-12] MEDS: MAGNESIUM OXIDE 400 MG TAB PO SCH (09:28)
[2021-09-12] MEDS: POLYETHYLENE (MIRALAX) 17 GM PACK PO SCH (09:28)
[2021-09-12] MEDS: FAMOTIDINE 20 MG TAB PO SCH ×2 (09:28→22:18)
[2021-09-12] MEDS: buPROPion XL 150 MG TABCR PO SCH (09:28)
[2021-09-12] MEDS: METOPROLOL SUCC 25MG EXT REL TAB PO SCH (09:28)
[2021-09-12] MEDS: FUROSEMIDE 40 MG/4 ML VIAL IV SCH (09:29)
[2021-09-12] MEDS: LIDOCAINE 5% 1 PATCH TD SCH (09:29)
[2021-09-12 11:57] LABS: BUN Creatinine Ratio 13.2 (10-20); Calcium 7.8 mg/dl (8.5-10.1); Creatinine Clr Calc Pharmacy 41.2 ml/min; Est GFR (African American) 59.9 ml/min; Est GFR (Non-African American) 51.7 ml/min; Potassium 4.2 mmol/L (3.5-5.1)
--- NOTE | 2021-09-12 12:05 | Surgery Progress Note ---
Date of Service September 12, 2021 Assessment & Plan (1) Acute cholecystitis: Plan: pt is a 81 year-old male who was admitted to hospital for right chest wall pain, HIDA scan and Ultrasound- acute cholecystitis, As per Dr. Boyd, since pt has no abdominal pain, no fever, normal WBC, and is high risk for cholecystectomy based on age, functional status, and comorbidities would recommend continuation of conservative treatment. Would continue antibiotic therapy and low fat diet. If patient were to start having persistent RUQ abdominal pain, pain after eating, increase in leukocytosis, fevers. Would recommend transfer to tertiary center for either percutaneous cholecystostomy tube vs cholecystectomy. Briefly discussed percutaneous cholecystostomy tube with patient today. Continue current medical management Admission and Anticipated Discharge Date Admission Date: September 03, 2021 Subjective "feeling slightly half and half today", feeling little depressed being in the hospital for so long denies of any abdominal pain no n,v today had a few episodes of spitting up over weekend but states it was only a quarter sized amount and seemed mostly like phlegm. Had cereal and orange juice this am and had no abdominal pain Physical Exam Constitutional: WD/WN, vitals as above + cachectic, + frail appearing and cooperative; no acute distress and not ill appearing Respiratory: normal respiratory effort; no respiratory distress Gastrointestinal (Abdomen): Inspection/Auscultation: abdomen normal to inspection; abdomen not distended Percussion/Palpation: abdomen soft; abdomen nontender, no guarding and abdomen not rigid dressing on the right chest from thoracentesis, clean and dry Skin: no rashes, warm and dry Psychiatric: Orientation: alert and oriented x 3 Results & Data ([facility]) Vital Signs (Past 12 Hours) Vital Signs Temp Pulse Pulse Resp BP BP Pulse Ox 09/12/21 11:44 36.3 C L 113 H 20 108/64 96 09/12/21 08:03 98 H 09/12/21 07:10 36.5 C 102 H 20 99/56 L 94 09/12/21 03:25 91/52 L 09/12/21 03:19 36.2 C L 100 H 18 94/43 L 93 09/12/21 01:46 106 H Laboratory Results 09/12/21 09/12/21 Range/Units 11:15 11:15 WBC Pending RBC Pending Hgb Pending Hct Pending MCV Pending MCH Pending MCHC Pending Plt Count Pending Sodium 139 (136-145) mmol/L Potassium 4.2 (3.5-5.1) mmol/L Chloride 103 (98-107) mmol/L Carbon Dioxide 28 (21-32) mmol/L Anion Gap 8 (3-11) BUN 17 (6-23) mg/dl Creatinine 1.29 (0.6-1.4) mg/dl Est Cr Clr Drug Dosing 41.2 ml/min Est GFR ( Amer) 59.9 ml/min Est GFR (Non-Af Amer) 51.7 ml/min BUN/Creatinine Ratio 13.2 (10-20) Glucose 99 (70-99(Fasting)) mg/dl Calcium 7.8 L (8.5-10.1) mg/dl Magnesium 2.0 (1.7-2.4) mg/dl
[2021-09-12 12:08] LABS: Basophils # (auto) 0.05 K/uL (0-0.2); Basophils % (auto) 0.8 %; Eosinophils # (auto) 0.07 K/uL (0-0.50); Eosinophils % (auto) 1.2 %; Hematocrit (blood only) 35.2 % (40.1-51.0); Hemoglobin 11.3 g/dl (14.0-18.0); Immature Granulocytes # (auto) 0.09 K/uL (0.00-0.02); Immature Granulocytes % (auto) 1.5 %; Lymphocytes # (auto) 0.89 K/uL (1.2-3.4); Lymphocytes % (auto) 14.7 %; Mean Corpuscular Hemoglobin 27.2 pg (25.0-34.0); Mean Corpuscular Hgb Conc 32.1 g/dL (32.0-36.0); Mean Corpuscular Volume 84.8 fL (80.0-100.0); Monocytes # (auto) 0.47 K/uL (0.24-0.82); Monocytes % (auto) 7.7 %; Neutrophils % (auto) 74.1 %; Platelet Count 308 K/uL (130-400); RDW Coefficient of Variation 17.5 % (11.5-14.5); RDW Standard Deviation 52.5 fL (36.4-46.3); Red Blood Count 4.15 M/uL (4.63-6.08); White Blood Count 6.07 K/ul (4.8-10.8)
[2021-09-12] MEDS: ENOXAPARIN INJ 40 MG/0.4 ML SYR SQ SCH (12:23)
--- NOTE | 2021-09-12 15:57 | Hospitalist Progress Note ---
Date of Service September 12, 2021 Assessment & Plan (1) Acute cholecystitis: Plan: Acute cholecystitis, medical management at this time Seen by surgery, per their assessment 09/08/2021: cholecystitis with gallbladder sludge, base on pt has no abdominal pain, no vomiting or nausea, no fever, normal WBC, and his high risks for cholecystectomy, D/W benefits, risks and alternatives of the laparoscopic cholecystectomy, Pt said he does not want to take the risks of surgery and chooses conservative treatment. Antibiotic for 5 days, start diet today, lovenox 30 mg SC once a day, once pt tolerated diet, he can be resumed coumadin, Follow up with Dr. Boyd in 2 weeks" If patient were to fail medical therapy, or worsen any surgical intervention was recommended to have transfer or care at tertiary care facility. At this time he is improving on medical therapy, and will continue plan for close follow-up with continued antibiotics Patient clinically improved, tolerating diet morning of 09/12 Completed 5 days of IV antibiotics as above, course to be extended for 14 days with Augmentin until follow-up with surgery as outpatient. Currently clinically stable [facility]ending [facility] when [facility] and bed available (2) Hematuria: Plan: Resolved (3) Pleural effusion: Plan: S/p thoracentesis 09/09 Thoracentesis with exudative fluid culture pending, no growth reported to date Pleural fluid cytology: Rare mesothelial cells and scattered mixed inflammation, negative for malignancy Reevaluated with ultrasound by pulm 09/12. No plans for repeat thoracentesis at this time. Would only revisit a thoracentesis if patient with significant symptoms and hypoxia. Currently is breathing well without dyspnea and mainta ining oxygen saturation greater than 95% on room air Warfarin resumed (4) Paroxysmal A-fib: Plan: Rate and rhythm currently controlled Anticoagulation held while patient Undergoing procedures including thoracentesis. No further thorough anticipated at this time, warfarin resumed Continue amiodarone and metoprolol succinate (5) CAD (coronary artery disease): Plan: S/p CABG x 1 vessel - Nov 2015. - Continue home ASA, beta-carrington, furosemide (6) Hypertension: Plan: Continue usual home medications as tolerated Monitor vital signs per protocol (7) BPH (benign prostatic hypertrophy): Plan: Urology consult placed. 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 Continue aspirin, not seeing that he is on statin but can be addressed as outpatient (10) Anemia: Plan: Hemoglobin stable (11) Hypokalemia: Plan: Potassium 3.6 Magnesium 1.7 -started magnesium oxide 400 mg p.o. every morning on 09/11/2021 Follow serial labs Replace as necessary (12) Hypoxia: Plan: Likely due to fluid overload, pleural effusiondiuresis Status post thoracentesis with 1900 cc evacuated Patient is currently doing well on room air. (13) Acute on chronic diastolic (congestive) heart failure: Plan: Status post thoracentesis; Continue current diuresishome dose appears to be 20 mg Lasix p.o. daily; watch for overdiuresis Can consider spironolactone as potassium sparing agent potassium 4.2 09/12 Creatinine stable, continue furosemide convert to oral on discharge Plan: Excoriation perianal region -continue wound care Admission and Anticipated Discharge Date Admission Date: September 03, 2021 Subjective Seen at the bedside this morning. Had cereal and orange juice this morning which is okay, but is extremely frustrated by his lunch as he feels that it is not particularly appetizing but better than at [facility]. Is frustrated that it is cold, would like repeated. Otherwise no acute concerns. Denies shortness of breath at bedside today, denies abdominal pain, chest pain, lightheadedness, dizziness at assessment. No fever/chills/sweats last night. Review of Systems Review of Systems: All systems reviewed & are unremarkable except as noted in Subjective Physical Exam 2 Physical Exam: General: Chronically malnourished, BMI 18. Alert and oriented. HEENT: Atraumatic, normocephalic. And hearing intact. Pulm: Diminished right lower compared to left, but breathing comfortably without wheezing with moderate to good air movement. No rales/wheezes are appreciated. Cardiac: Regular, tachycardic, -mrg. Radial pulses intact and symmetrical. Abdominal: Nontender, nondistended, soft. Results & Data Results & Data ([facility]) Vital Signs (Past 12 Hours) Vital Signs Temp Pulse Pulse Resp BP BP Pulse Ox 09/12/21 15:17 36.4 C L 106 H 20 100/56 L 95 09/12/21 15:10 107 H 09/12/21 11:44 36.3 C L 113 H 20 108/64 96 09/12/21 08:03 98 H 09/12/21 07:10 36.5 C 102 H 20 99/56 L 94 PG Care Time/CCT Total # of Minutes Spent Total Time Spent with Patient: Total time spent is greater than 50% in coordination of care (as documented) at patient's floor/unit and/or counseling patient: Coding Level of Care Code 50459 Subseq Hosp Care Lvl 2 Diagnoses Acute cholecystitis K81.0 Hematuria R31.9 Pleural effusion J90 Paroxysmal A-fib I48.0 CAD (coronary artery disease) I25.10 Hypertension I10 Hypertension type: essential hypertension BPH (benign prostatic hypertrophy) N40.0 Anxiety F41.9 Cerebrovascular disease I67.9 Anemia D64.9 Hypokalemia E87.6 Hypoxia R09.02 Acute on chronic diastolic (congestive) heart failure I50.33 (1) Hypertension Hypertension type: essential hypertension Qualified Code(s): I10 - Essential (primary) hypertension
[2021-09-12] MEDS: WARFARIN SOD 2 MG TAB PO SCH (16:10)
[2021-09-12] MEDS: cefTRIAXone SODIUM 2,000 MG in DEXTROSE 5% 50 ML IV SCH (16:10)
[2021-09-12] MEDS: TAMSULOSIN HCL 0.4 MG CAP PO SCH (22:17)
[2021-09-13] MEDS: metroNIDAZOLE 500 MG/100 ML BAG IV SCH (04:07)
[2021-09-13] MEDS ORDERED: AMOXICILLIN/CLAVULANATE 875 MG TAB PO SCH (09:00)
[2021-09-13] MEDS: ASPIRIN 81 MG ECTAB PO SCH (09:30)
[2021-09-13] MEDS: POLYETHYLENE (MIRALAX) 17 GM PACK PO SCH (09:31)
[2021-09-13] MEDS: MAGNESIUM OXIDE 400 MG TAB PO SCH (09:31)
[2021-09-13] MEDS: buPROPion XL 150 MG TABCR PO SCH (09:31)
[2021-09-13] MEDS: BENZONATATE 100 MG CAPSULE PO SCH (09:31)
[2021-09-13] MEDS: FUROSEMIDE 40 MG/4 ML VIAL IV SCH (09:32)
[2021-09-13] MEDS: SPIRONOLACTONE 25 MG TAB PO SCH (09:32)
[2021-09-13] MEDS: FAMOTIDINE 20 MG TAB PO SCH (09:32)
[2021-09-13] MEDS: POTASSIUM CHLORIDE 10 MEQ TABCR PO SCH (09:33)
[2021-09-13] MEDS: METOPROLOL SUCC 25MG EXT REL TAB PO SCH (09:34)
[2021-09-13] MEDS: AMIODARONE 200 MG TAB PO SCH (09:34)
[2021-09-13] MEDS: LIDOCAINE 5% 1 PATCH TD SCH (09:35)
--- NOTE | 2021-09-13 14:04 | Discharge Summary ---
Date of Service September 13, 2021 Admission HPI Per Admitting Provider 81yo M w/ hx of left-sided kidney stones s/p stenting who presents with hematuria and concern for UTI despite recent finishing of abx. The patient was discharged on 08/29 back to [facility] where he lives and reports he was doing fairly well overall. He reports an interval improvement in his shortness of breath and cough after being admitted for aspiration pneumonia. He reports that he thought his urine was normal on return, but his sister says that the urine was quite bloody on Sunday when she came to visit him. He is not eating as well there, and she is also worried about his weight loss. The patient reports some "mild" dysuria and reports he has been cold from time to time and required the heat to be turned up. Today, he reports severe right-sided flank pain which is what he reports actually brought him to the ER. There is a modest size nodule on the right side of his chest wall which is exquisitely tender to palpation or even light touch. He does not recall exactly when he noticed this, but thinks it has been at least 2-3 days. Principal Diagnosis Acute cholecystitis, acute hypoxic respiratory failure with pleural effusions s/p thoracocentesis Discharge Exam General: Chronically malnourished, BMI 18.6. Alert and oriented. HEENT: Atraumatic, normocephalic. And hearing intact. Pulm: Diminished right lower compared to left, moderate to good air movement, no wheezing. Cardiac: irregular, tachycardic, -mrg. Radial pulses intact and symmetrical. Abdominal: Nontender, nondistended, soft. Discharge Data Allergies Allergy/AdvReac Type Severity Reaction Status Date / Time guaifenesin AdvReac Intermediate GETS Verified 09/03/21 15:16 REALLY SICK FROM MUCINEX Consultations 09/03/21 12:20 ED Decision to Admit Stat 09/03/21 16:10 Consult Urology Routine 09/07/21 16:19 Consult General Surgery Routine 09/08/21 12:54 Consult Pulmonology Routine Ordered Studies 09/03/21 10:04 CT abd pelvis wo con Stat 09/03/21 11:15 CT chest diagnostic wo con Stat 09/08/21 14:13 US point of care ultrasound Routine 09/08/21 17:25 US abdomen limited Routine Hospital Course (1) Acute cholecystitis: Dallin is an 81-year-old male who was seen for hypoxic respiratory failure with pleural effusions failed diuretic therapy and who also was found to have acute cholecystitis during admission. Case was discussed with surgery, who felt he was very high risk and would either need transfer to tertiary care versus conservative medical treatment. This was discussed with patient who preferred conservative treatment. Was kept for 5 days of IV antibiotics per surgery, then transition for Augmentin 2 weeks with follow-up to Dr. Boyd as an outpatient. Pleural effusions did not improve with diuresis and patient was hypoxic, thoracentesis was performed with good clinical benefit. Patient remained on room air with good air movement and no shortness of breath following. Additional thoracentesis was not recommended at this time, and warfarin was restarted. To do as outpatient: 1. Continue warfarin, follow INR in 24-48 hours as slowly reloading for A. fib 2. Continue Augmentin [id number] for 14 days twice daily. Will have follow-up with surgery near end of course 3. Follow-up with surgery as outpatient 4. Routine follow-up with PCP 5. Repeat BMP with magnesium as outpatient, adjust oral supplements as needed. 6. Continue spironolactone Acute cholecystitis, medical management at this time Seen by surgery, per their assessment 09/08/2021: cholecystitis with gallbladder sludge, base on pt has no abdominal pain, no vomiting or nausea, no fever, normal WBC, and his high risks for cholecystectomy, D/W benefits, risks and alternatives of the laparoscopic cholecystectomy, Pt said he does not want to take the risks of surgery and chooses conservative treatment. Antibiotic for 5 days, start diet today, lovenox 30 mg SC once a day, once pt tolerated diet, he can be resumed coumadin, Follow up with Dr. Boyd in 2 weeks" If patient were to fail medical therapy, or worsen any surgical intervention was recommended to have transfer or care at tertiary care facility. At this time he is improving on medical therapy, and will continue plan for close follow-up with continued antibiotics Patient clinically improved, tolerating diet morning of 09/12 Completed 5 days of IV antibiotics as above, course to be extended for 14 days with Augmentin until follow-up with surgery as outpatient. Currently clinically stable [facility] at [facility] (2) Hematuria: Resolved (3) Pleural effusion: S/p thoracentesis 09/09 Thoracentesis with exudative fluid culture pending, no growth reported to date Pleural fluid cytology: Rare mesothelial cells and scattered mixed inflammation, negative for malignancy Reevaluated with ultrasound by pulm 09/12. No plans for repeat thoracentesis at this time. Would only revisit a thoracentesis if patient with significant symptoms and hypoxia. Currently is breathing well without dyspnea and maintaining oxygen saturation greater than 95% on room air Warfarin resumed (4) Paroxysmal A-fib: Rate and rhythm currently controlled Anticoagulation held while patient Undergoing procedures including thoracentesis. No further thorough anticipated at this time, warfarin resumed Continue amiodarone and metoprolol succinate (5) CAD (coronary artery disease): S/p CABG x 1 vessel - Nov 2015. - Continue home ASA, beta-carrington, furosemide (6) Hypertension: Continue usual home medications as tolerated Monitor vital signs per protocol (7) BPH (benign prostatic hypertrophy): Urology consult placed. 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 Continue aspirin, not seeing that he is on statin but can be addressed as outpatient (10) Anemia: Hemoglobin stable (11) Hypokalemia: Potassium 3.6 Magnesium 1.7, repleted Follow serial labs Replace as necessary (12) Hypoxia: Likely due to fluid overload, pleural effusiondiuresis Status post thoracentesis with 1900 cc evacuated Patient is currently doing well on room air. (13) Acute on chronic diastolic (congestive) heart failure: Status post thoracentesis; Continue current diuresishome dose appears to be 20 mg Lasix p.o. daily; watch for overdiuresis Can consider spironolactone as potassium sparing agent potassium 4.2 09/12 Creatinine stable, continue furosemide convert to oral on discharge Excoriation perianal region -continue wound care Total Time Total Time Spent Total Time Spent (In Minutes): Time spend day of discharge 25 minutes including direct patient care, documentation, review of labs and images, and coordination of care. Discharge Plan Discharge Items Patient Disposition: Transfer [facility] Fac Reason For Visit: HEMATURIA,CHEST WALL PAIN/TENDERNESS Discharge Diagnosis: Acute cholecystitis Acute on chronic CHF Persistent pleural effusion s/p thoracentesis Activity: Per Instructions section Non-emergency contact: Primary Care Provider Call non-emergency contact if: you have any medication questions Follow-up/Referrals: [facility] [Primary Care Provider] - Amy Boyd MD [Physician] - Diet: Low Fat Diet Comment: Minced and moist Addtl Attending Provider Instructions: You were seen for acute hypoxic respiratory failure and found to have acute cholecystitis, a gallbladder infection, during admission. There is/benefits of gallbladder removal were discussed with you and the surgical team. Due to your high risk of complications, it was recommended to pursue medical therapy rather than an operative removal of your gallbladder. You completed 5 days of IV antibiotics, and have been prescribed 2 weeks of Augmentin as below with follow-up to their office for clinical reassessment. You have a history of congestive heart failure, which can cause fluid to accumulate in the lung. You had a pocket of fluid, called pleural effusion, which did not improve with fluid medications. A drainage of this fluid, thor acentesis, was performed with improvement in your oxygen levels. You have been discharged home to continue Lasix. You have been prescribed antibiotic, Augmentin. Please take Augmentin by mouth twice daily for 14 days. You will have a clinical reassessment by surgery as scheduled above. You have been prescribed a blood pressure and potassium sparing medication called spironolactone. Please take spironolactone 25 mg daily. You should have blood work (BMP) to check your creatinine and potassium within 1 week and drawn by your outpatient provider. Your warfarin was temporarily held for your thoracentesis. This was resumed prior to discharge, you are on a low dose of enoxaparin during admission to prevent blood clots. Please continue to take your warfarin, and have a INR check in 24-48 hours. A follow-up appointment is being scheduled for you with Dr. Boyd with surgery for follow-up in approximately 2 weeks. If you do not hear confirmation of this appointment within 48 hours, please call his office at the number above. If you develop any new or worsening symptoms including fever, chills, sweats, chest pain, chest pressure, difficulty breathing, uncontrolled nausea/vomiting, rash, wheezing, passing out or nearly passing out, bleeding, black/bloody bowel movements, or other new or concerning symptoms please call your primary care physician, or call 911 for re-evaluation in the emergency department if you are very concerned. Pending Studies at Discharge: No Stand-Alone Forms: My [facility] Skilled Items Patient informed of condition?: Yes DNR: Yes (Conditional code pressors only during admission) Discharge Level of Care: Skilled Communicable Disease: No Discharge Prognosis: Stable Lines: None Urinary Catheter: No Medications and DC Order Prescriptions: New spironolactone 25 mg Tablet 25 mg PO QAM Qty: 30 RF: 0 amoxicillin-pot clavulanate 875-125 mg Tablet 1 tab PO BIDM 14 Days Qty: 28 RF: 0 Continued magnesium hydroxide [Milk of Magnesia] 400 mg/5 mL Suspension 30 ml PO DAILY PRN (Reason: Constipation) RF: 0 bisacodyl [Dulcolax (bisacodyl)] 10 mg Suppository 10 mg VT UD PRN (Reason: Constipation) RF: 0 tamsulosin 0.4 mg capsule 0.4 mg PO HS Qty: 30 RF: 0 acetaminophen 325 mg Tablet 650 mg PO Q6 MDD 3g PRN (Reason: temp > 100) RF: 0 Fleet Enema 19-7 gram/118 mL Enema 118 ml VT DAILY PRN (Reason: Constipation) RF: 0 polyethylene glycol 3350 [Miralax] 17 gram/dose Powder 17 g PO DAILY RF: 0 bupropion HCl [Wellbutrin XL] 150 mg Tablet Extended Release 24 Hr 150 mg PO QAM RF: 0 acetaminophen 325 mg tablet 650 mg PO Q6 MDD 3g PRN (Reason: Pain) RF: 0 phenazopyridine [Pyridium] 200 mg tablet 200 mg PO Q8H PRN (Reason: pain) Qty: 10 RF: 0 warfarin 2 mg Tablet 2 mg PO DAILY@1600 Qty: 0 RF: 0 Multiple Vitamin-Minerals Tablet 1 tab PO QPM RF: 0 benzonatate 100 mg capsule 100 mg PO TID RF: 0 lidocaine HCl 10 mg/mL (1 %) solution 2.1 ml IM DAILY RF: 0 amiodarone 200 mg tablet 200 mg PO QAM Qty: 30 RF: 0 aspirin 81 mg Tablet,Delayed Release (Dr/Ec) 81 mg PO DAILY Qty: 30 RF: 0 famotidine 20 mg tablet 20 mg PO BID Qty: 60 RF: 0 furosemide 20 mg tablet 20 mg PO MOWEFR@0900 Qty: 20 RF: 0 metoprolol succinate 25 mg Tablet Extended Release 24 Hr 12.5 mg PO QAM Qty: 30 RF: 0 docusate sodium 100 mg Tablet 100 mg PO BID Qty: 60 RF: 0 Discontinued ceftriaxone 1 gram Recon Soln 1 g IM DAILY RF: 0 Discharge Orders: Discharge Order (Routine); Ordered 09/13/21 Ordered By: Oliver Patel Admission Data Admit Date/Time: 09/03/21 13:04 Attending Provider: Oliver Patel Admit Provider: Brendon Phillips Primary Care Provider: [facility] Other Providers: Brendon Phillips ; Paul Fitzgerald ; Amy Boyd ; Seven Murray Other Interventions: Discharge Summary Assessment (RN) Last Done: 09/13/21 11:24 Coding Level of Care Code D/C DAY MANAGEMENT <30 MINS Diagnoses Acute cholecystitis K81.0 Hematuria R31.9 Pleural effusion J90 Paroxysmal A-fib I48.0 CAD (coronary artery disease) I25.10 Hypertension I10 Hypertension type: essential hypertension BPH (benign prostatic hypertrophy) N40.0 Anxiety F41.9 Cerebrovascular disease I67.9 Anemia D64.9 Hypokalemia E87.6 Hypoxia R09.02 Acute on chronic diastolic (congestive) heart failure I50.33
== END 2021-09-13 12:00 | DRG 444 ==
LOC: ED 09:33 → 2W 13:04 → SUATTDRO 13:04 → 2W 15:43